=== PATIENT | male | born 1940 | race Caucasian/White ===

== ENCOUNTER 2024-06-02 12:19 | Emergency (ER) | payer MEDICARE, BC, SELFPAY ==
[2024-06-02 12:22] VITALS: BP 170/75; PULSE 58; TEMP 36.7; O2SAT 98; BMI 30.1
[2024-06-02] MEDS: ADACEL DIPH,PERTUSS(ACELL),TET VAC/PF 0.5 ML ADULT SYRINGE IM (13:49)
[2024-06-02] MEDS: LIDOCAINE/EPINEPHRINE/TETRACAINE 3 ML GEL.PF.APP 1.5 ML TOPICAL (13:50)
[2024-06-02 13:51] VITALS: BP 194/85
--- NOTE | 2024-06-02 14:04 | ED_ITS ---
HPI HPI - Fall General Chief Complaint: Fall Stated Complaint: FALL; HEAD INJURY Time Seen by Provider: 06/02/24 12:44 Source: patient Mode of arrival: ambulance History of Present Illness HPI Narrative: The patient coming [facility] a [facility] after he had a fall, apparently he was trying to get transferred from the wheelchair when he fell forward hitting the left side of his scalp, he did not lose consciousness, he has history of dementia, the patient also complaining initially to the triage with the right hip pain and left shoulder pain although right now he does not have any complaint of that The patient denies any other complaint Related Data Home Medications ?Medication ?Instructions ?Recorded ?Confirmed acetaminophen 325 mg tablet 650 mg PO Q6H PRN fever or pain 06/02/24 06/02/24 amlodipine 2.5 mg tablet (Norvasc) 2.5 mg PO DAILY 06/02/24 06/02/24 aspirin 81 mg tablet,delayed 81 mg PO DAILY 06/02/24 06/02/24 release (Adult Low Dose Aspirin) atorvastatin 40 mg tablet 40 mg PO QPM 06/02/24 06/02/24 ergocalciferol (vitamin D2) 1,250 1,250 mcg PO QWEEK 06/02/24 06/02/24 mcg (50,000 unit) capsule finasteride 5 mg tablet 5 mg PO QPM 06/02/24 06/02/24 fluoxetine 20 mg capsule 20 mg PO DAILY 06/02/24 06/02/24 melatonin 5 mg tablet 5 mg PO QPM 06/02/24 06/02/24 memantine 10 mg tablet 10 mg PO DAILY 06/02/24 06/02/24 metformin 500 mg tablet 500 mg PO BID 06/02/24 06/02/24 quetiapine 25 mg tablet (Seroquel) 25 mg PO QPM 06/02/24 06/02/24 Allergies Allergy/AdvReac Type Severity Reaction Status Date / Time No Known Drug Allergies Allergy Verified 06/02/24 12:25 Opioid HPI Opioid Management Most Recent Pain and Opioid Data: No Data to Display Review of Systems ROS Status of ROS 10 or more systems reviewed and unremark able except as noted in history and below [facility] Medical History (Updated 06/02/24 @ 15:20 by Lydia Kimble MD) Zoster without complications ?B02.9 - Zoster without complications (ICD-10) Cognitive communication deficit ?R41.841 - Cognitive communication deficit (ICD-10) Dysphagia ?R13.10 - Dysphagia, unspecified (ICD-10) Tremor ?R25.1 - Tremor, unspecified (ICD-10) Major depressive disorder ?F32.9 - Major depressive disorder, single episode, unspecified (ICD-10) Atherosclerotic heart disease ?I25.10 - Atherosclerotic heart disease of [place] coronary artery without angina pectoris (ICD-10) Male erectile disorder ?N52.9 - Male erectile dysfunction, unspecified (ICD-10) Adjustment insomnia ?F51.02 - Adjustment insomnia (ICD-10) Sleep apnea ?G47.30 - Sleep apnea, unspecified (ICD-10) Dementia ?F03.90 - Unspecified dementia, unspecified severity, without behavioral disturbance, psychotic disturbance, mood disturbance, and anxiety (ICD-10) Type 2 diabetes mellitus ?E11.9 - Type 2 diabetes mellitus without complications (ICD-10) Essential (primary) hypertension ?I10 - Essential (primary) hypertension (ICD-10) BPH (benign prostatic hyperplasia) ?N40.0 - Benign prostatic hyperplasia without lower urinary tract symptoms (ICD-10) Hyperlipidemia ?E78.5 - Hyperlipidemia, unspecified (ICD-10) Difficulty in walking ?R26.2 - Difficulty in walking, not elsewhere classified (ICD-10) Muscle weakness ?M62.81 - Muscle weakness (generalized) (ICD-10) Nutritional deficiency ?E63.9 - Nutritional deficiency, unspecified (ICD-10) Orthostatic hypotension ?I95.1 - Orthostatic hypotension (ICD-10) Exam Narrative Exam Narrative: Nurses notes and vital signs reviewed and patient is not hypoxic. General: Well-appearing and in no apparent distress. Skin: Warm, dry, no pallor noted. No rash. Head: 2.5 cm laceration to the scalp mostly at the temporal area measuring 2.5 cm linear and is clean with no foreign body Neck: Supple, non-tender. Cardiovascular: Regular Rate and Rhythm without murmur, gallop or rub. Respiratory: No accessory muscle use or respiratory distress. Lungs are clear to auscultation, no wheezing, rales or rhonchi Chest Wall: no tenderness Back: No midline thoracic or lumbar vertebral tenderness. No CVA tenderness Musculoskeletal: normal ROM, no calf or popliteal tenderness, no lower extremity edema/swelling GI: Abdomen is soft, non-distended. Normal bowel sounds. No masses appreciated. No tenderness to palpation. No rebound, guarding, or rigidity noted. Neurological: Alert, no cranial nerve dysfunction observed. Moves all extremities. Sensation intact. Psychiatric: Cooperative and interactive. Normal mood and affect. Constitutional Vital Signs, click to edit/add: Last Vital Signs Temp 98.0 F 06/02/24 12:22 Pulse 65 06/02/24 15:04 Resp 20 06/02/24 15:04 BP 188/92 H 06/02/24 15:04 Pulse Ox 97 06/02/24 15:04 O2 Del Method Room Air 06/02/24 12:22 Course Vital Signs Vital signs: Vital Signs Temperature 98.0 F 06/02/24 12:22 Pulse Rate 58 L 06/02/24 12:22 Respiratory Rate 18 06/02/24 12:22 Blood Pressure 170/75 H 06/02/24 12:22 Pulse Oximetry 98 06/02/24 12:22 Oxygen Delivery Method Room Air 06/02/24 12:22 Temperature 98.0 F 06/02/24 12:22 Pulse Rate 65 06/02/24 15:04 Respiratory Rate 20 06/02/24 15:04 Blood Pressure 188/92 H 06/02/24 15:04 Pulse Oximetry 97 06/02/24 15:04 Oxygen Delivery Method Room Air 06/02/24 12:22 MDM - Fall MDM Narrative Medical decision making narrative: Patient provided with a tetanus booster Also the patient had a CT head and cervical spine in addition to an x-ray of the left shoulder and and CT of the pelvis The patient imaging CT cervical as well as CT head and CT of the pelvis and x- ray of the left shoulder showed no acute pathology The patient had a the wound cleaned after which LET applied and the patient had 4 taya applied as well Patient was discharged back to the [facility] with monitoring and fall prevention instruction The patient is to follow up with primary care physician in next 2-3 days or to return to the emergency department should any of the signs or symptoms worsen or new symptoms develop. The patient agrees with the following Diagnosis and Treatment plan and the patient will be discharged home. Discharge Plan Discharge Chief Complaint: Fall Clinical Impression: Fall, Laceration of scalp, Head trauma Patient Disposition: Home, Self-Care Time of Disposition Decision: 15:18 Condition: Good Prescriptions / Home Meds: No Action acetaminophen 325 mg tablet 650 mg PO Q6H PRN (Reason: fever or pain) aspirin [Adult Low Dose Aspirin] 81 mg tablet,delayed release (DR/EC) 81 mg PO DAILY atorvastatin 40 mg tablet 40 mg PO QPM ergocalciferol (vitamin D2) 1,250 mcg (50,000 unit) capsule 1,250 mcg PO QWEEK finasteride 5 mg tablet 5 mg PO QPM fluoxetine 20 mg capsule 20 mg PO DAILY melatonin 5 mg tablet 5 mg PO QPM memantine 10 mg tablet 10 mg PO DAILY metformin 500 mg tablet 500 mg PO BID amlodipine [Norvasc] 2.5 mg tablet 2.5 mg PO DAILY quetiapine [Seroquel] 25 mg tablet 25 mg PO QPM Print Language: Welsh Instructions: Laceration (DC), Fall Prevention (ED) Referrals: ADEOLA CERON [Primary Care Provider] - 1 week
[2024-06-02 15:04] VITALS: BP 188/92; PULSE 65; O2SAT 97
== END 2024-06-02 15:44 | disposition home or self-care (01) ==
PROVIDERS: Emergency Provider Emergency Medicine; PCP Family Medicine
DX: S01.01XA Laceration without foreign body of scalp, initial encounter (principal); S09.90XA Unspecified injury of head, initial encounter; M25.551 Pain in right hip; M25.512 Pain in left shoulder; W05.0XXA Fall from non-moving wheelchair, initial encounter; F03.90 Unspecified dementia, unspecified severity, without behavioral disturbance, psychotic disturbance, mood disturbance, and anxiety; Z23 Encounter for immunization
CPT/HCPCS: 12001; 70450; 72125; 72192; 73030; 90471; 90715; 99284

== ENCOUNTER 2024-06-04 11:52 | Outpatient (REF) | payer MEDICARE, BC, SELFPAY ==
[2024-06-04 12:10] LABS: Basophils Percent Auto 0.3 % (0.2-2.0); Eosinophils Absolute Auto 0.1 10^3/uL (0.0-0.7); Eosinophils Percent Auto 1.1 % (0.9-7.0); Hematocrit 43.4 % (42.0-54.0); Hemoglobin 14.3 g/dL (14.0-18.0); Immature Granulocytes Abs Auto 0.02 10^3/uL (0.00-0.03); Immature Granulocytes Pct Auto 0.2 % (0.0-0.5); Lymphocytes Absolute Auto 2.3 10^3/uL (1.2-3.8); Lymphocytes Percent Auto 25.5 % (20.5-60.0); Mean Corpuscular HGB Conc 32.9 g/dL (29.9-35.2); Mean Corpuscular Hemoglobin 30.8 pg (25.9-34.0); Mean Corpuscular Volume 93.5 fL (80.0-94.0); Mean Platelet Volume 10.9 fL (9.5-13.5); Monocytes Absolute Auto 0.9 10^3/uL (0.3-0.8); Monocytes Percent Auto 10.1 % (1.7-12.0); Neutrophils Absolute Auto 5.6 10^3/uL (1.4-6.5); Neutrophils Percent Auto 62.8 % (43.0-75.0); Platelet Count 284 10^3/uL (150-450); Red Blood Count 4.64 10^6/uL (4.70-6.10); Red Cell Distribution Width 13.6 % (11.0-15.0); White Blood Count 8.9 10^3/uL (4.0-11.0)
[2024-06-04 12:11] LABS: Bilirubin Urine NEGATIVE (NEGATIVE); Blood Urine NEGATIVE (NEGATIVE); Clarity Urine CLEAR (CLEAR); Color Urine LT. YELLOW (YELLOW); Glucose Urine UA NEGATIVE (NEGATIVE); Ketones Urine NEGATIVE (NEGATIVE); Leukocyte Esterase Urine NEGATIVE (NEGATIVE); Nitrite Urine NEGATIVE (NEGATIVE); Protein Urine 100 mg/dL (NEG/TRACE)
[2024-06-04 12:12] LABS: Urine Microscopic Indicated YES
[2024-06-04 12:21] LABS: Bacteria Urine NONE SEEN #/HPF (NONE SEEN); Cast Seen? SEEN #/LPF (NONE SEEN); Crystals Seen? None Seen #/HPF (None Seen); Hyaline Casts Urine FEW; Mucus Urine TRACE (NONE SEEN); RBC Urine 0-2 #/HPF (0-2); Squamous Epithelial Cell Urine RARE #/LPF (NONE/RARE); WBC Urine 0-2 #/HPF (NONE SEEN)
[2024-06-04 12:49] LABS: Anion Gap 15.2; BUN Creatinine Ratio 21.5; Calcium 9.3 mg/dL (8.5-10.1); Chloride 105 mmol/L (98-107); Estimated GFR (African America >60 (>=60 mL/min/1.73m^2); Estimated GFR (Non-African Ame >60 (>=60 mL/min/1.73m^2); Glucose 110 mg/dL (74-106); Potassium 4.2 mmol/L (3.5-5.1); Sodium 143 mmol/L (136-145)
== END 2024-06-04 11:53 | disposition home or self-care (01) ==
LOC: LAB 11:52
PROVIDERS: PCP Family Medicine; Visit Provider Family Medicine
DX: R41.82 Altered mental status, unspecified (principal)
CPT/HCPCS: 36415; 80048; 81001; 85025

== ENCOUNTER 2024-06-20 16:38 | Observation (INO) | payer MEDICARE, BC, SELFPAY ==
[2024-06-20] VITALS (14 sets, daily range): BP systolic 134–201; BP diastolic 72–101; PULSE 68–78; TEMP 36.6–36.8; O2SAT 93–98; BMI 28.7; BMI 30.6
--- NOTE | 2024-06-20 16:54 | ECG_ITS ---
[facility] Test Date: 2024-06-20 Pat Name: DES SIMONS Department: Room: - Gender: Male Habilitation Training Specialist: : [id number] Requested By: 0929 Order Number: [id number] Reading MD: NINA VILLALTA M.D. Measurements Intervals [place] Rate: 71 P: 90 PA: 152 QRS: 73 QRSD: 82 T: 90 QT: 386 QTc: 409 Interpretive Statements 1100 Sinus rhythm ARTIFACT IN LEAD(S) 9110 normal ECG No previous ECG available for comparison Electronically Signed On 06-21-2024 8:07:29 EDT by NINA VILLALTA M.D.
--- NOTE | 2024-06-20 16:57 | ED_ITS ---
HPI - Altered Mental Status General Chief Complaint: Altered Mental Status Stated Complaint: fall Time Seen by Provider: 06/20/24 16:43 Source: patient Mode of arrival: walk-in Limitations: no limitations History of Present Illness HPI narrative: Patient is an 83-year-old male brought to the emergency department by EMS for evaluation of an unwitnessed fall at the [facility] just prior to arrival. 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 Nursing reports that the patient screamed in pain and complained of low back pain. He apparently had been hallucinating just prior to this. EMS reports the patient is ANO x 0. He is a full code with a history of dementia and cognitive communication deficit. He is noted to have moderate swelling and bruising to the right elbow and forearm. residential records show that the patient had x-rays of the elbow and forearm, no results are attached. He follows commands on arrival. Related Data Home Medications ?Medication ?Instructions ?Recorded ?Confirmed acetaminophen 325 mg tablet 650 mg PO Q6H PRN fever or pain 06/02/24 06/02/24 amlodipine 2.5 mg tablet (Norvasc) 2.5 mg PO DAILY 06/02/24 06/02/24 aspirin 81 mg tablet,delayed 81 mg PO DAILY 06/02/24 06/02/24 release (Adult Low Dose Aspirin) atorvastatin 40 mg tablet 40 mg PO QPM 06/02/24 06/02/24 ergocalciferol (vitamin D2) 1,250 1,250 mcg PO QWEEK 06/02/24 06/02/24 mcg (50,000 unit) capsule finasteride 5 mg tablet 5 mg PO QPM 06/02/24 06/02/24 fluoxetine 20 mg capsule 20 mg PO DAILY 06/02/24 06/02/24 melatonin 5 mg tablet 5 mg PO QPM 06/02/24 06/02/24 memantine 10 mg tablet 10 mg PO DAILY 06/02/24 06/02/24 metformin 500 mg tablet 500 mg PO BID 06/02/24 06/02/24 quetiapine 25 mg tablet (Seroquel) 25 mg PO QPM 06/02/24 06/02/24 Allergies Allergy/AdvReac Type Severity Reaction Status Date / Time No Known Drug Allergies Allergy Verified 06/02/24 12:25 Review of Systems ROS Constitutional Denies: fever or chills Ears, nose, mouth, and throat Denies: throat pain or nasal congestion Cardiovascular Denies: chest pain Respiratory Denies: shortness of breath or cough Gastrointestinal Denies: nausea or vomiting Musculoskeletal Reports: back pain; Denies: neck pain Integumentary/Breast Denies: rash Hematologic/Lymphatic Denies: easy bruising or easy bleeding [facility] Medical History (Updated 06/20/24 @ 19:35 by MIMA Clark) Zoster without complications ?B02.9 - [place] without complications (ICD-10) Cognitive communication deficit ?R41.841 - Cognitive communication deficit (ICD-10) Dysphagia ?R13.10 - Dysphagia, unspecified (ICD-10) Tremor ?R25.1 - Tremor, unspecified (ICD-10) Major depressive disorder ?F32.9 - Major depressive disorder, single episode, unspecified (ICD-10) Atherosclerotic heart disease ?I25.10 - Atherosclerotic heart disease of [place] coronary artery without angina pectoris (ICD-10) Male erectile disorder ?N52.9 - Male erectile dysfunction, unspecified (ICD-10) Adjustment insomnia ?F51.02 - Adjustment insomnia (ICD-10) Sleep apnea ?G47.30 - Sleep apnea, unspecified (ICD-10) Dementia ?F03.90 - Unspecified dementia, unspecified severity, without behavioral disturbance, psychotic disturbance, mood disturbance, and anxiety (ICD-10) Type 2 diabetes mellitus ?E11.9 - Type 2 diabetes mellitus without complications (ICD-10) Essential (primary) hypertension ?I10 - Essential (primary) hypertension (ICD-10) BPH (benign prostatic hyperplasia) ?N40.0 - Benign prostatic hyperplasia without lower urinary tract symptoms (ICD-10) Hyperlipidemia ?E78.5 - Hyperlipidemia, unspecified (ICD-10) Difficulty in walking ?R26.2 - Difficulty in walking, not elsewhere classified (ICD-10) Muscle weakness ?M62.81 - Muscle weakness (generalized) (ICD-10) Nutritional deficiency ?E63.9 - Nutritional deficiency, unspecified (ICD-10) Orthostatic hypotension ?I95.1 - Orthostatic hypotension (ICD-10) Exam Narrative Exam Narrative: Gen.: Awake, alert, in no distress Head: Normocephalic, atraumatic ENT: Moist mucous membranes Respiratory: No respiratory distress, lungs clear bilaterally, no chest wall tenderness or crepitance Cardio: Regular rate and rhythm Gastrointestinal: Abdomen is soft, nondistended and nontender to palpation, pelvis is stable and hips are nontender Extremities: Moves extremities equally, swelling and bruising noted to the right medial elbow although patient allows full passive range of motion to flexion and extension. 2+ right radial pulse. No bony tenderness of the lower extremities. Psych: Normal mood and affect Neuro: No focal neuro deficit Skin: Warm, dry, intact Constitutional Vital Signs, click to edit/add: Last Vital Signs Temp 98 F 06/20/24 16:45 Pulse 74 06/20/24 18:23 Resp 17 06/20/24 18:23 BP 180/86 H 06/20/24 16:50 Pulse Ox 95 06/20/24 17:00 O2 Del Method Room Air 06/20/24 16:45 Course Vital Signs Vital signs: Vital Signs Blood Pressure 134/101 H 06/20/24 10:59 Temperature 98 F 06/20/24 16:45 Pulse Rate 74 06/20/24 18:23 Respiratory Rate 17 06/20/24 18:23 Blood Pressure 180/86 H 06/20/24 16:50 Pulse Oximetry 95 06/20/24 17:00 Oxygen Delivery Method Room Air 06/20/24 16:45 MDM - Altered Mental Status MDM Narrative Medical decision making narrative: Patient was sent for CTs of the head, cervical spine, lumbar spine as well as the chest/abdomen/pelvis. He was kept in a c-collar and lying flat until his CT of his cervical spine resulted. These imaging studies show the patient has a superior endplate fracture of L3 with otherwise normal alignment. He was able to stand at the bedside without complaints of pain, however he has a very unsteady gait and we feel he is a significant fall risk. Given his dementia and hallucinations with a fall and lumbar fracture, he is admitted for observation for PT/OT evaluation and observation overnight. He is stable with no complaints of pain at this time. I did discuss the case with the hospitalist and Dr. Bethea for orthopedics, no intervention indicated for the L3 fracture. Stable at time of admission to the hospital. After the patient was admitted to the hospital, staff responded to a CODE BLUE for a different patient and on rechecking the patient in his room, he had removed his gown, climbed out of bed and was laying naked on the floor. He denied any focal complaints, he was not on the floor for an extended period of time. He had no physical signs of significant trauma. He was assisted to a standing position and placed back in bed and back on cardiac monitoring. He was sent for a CT of the head and C-spine that was repeated prior to admission. This was reviewed by the radiologist showing no evidence of acute process. SUPERVISED APC VISIT, PHYSICIAN ATTESTATION: Based on the medical record the care appears appropriate. ? Medical Records Attestation: I reviewed the patient's medical records. Lab Data Attestation: I reviewed the patient's lab results. Labs: Lab Results 06/20/24 06/20/24 06/20/24 Range/Units 16:55 18:55 19:30 WBC 9.2 (4.0-11.0) 10^3/uL RBC 4.03 L (4.70-6.10) 10^6/uL Hgb 12.6 L (14.0-18.0) g/dL Hct 37.1 L (42.0-54.0) % MCV 92.1 (80.0-94.0) fL MCH 31.3 (25.9-34.0) pg MCHC 34.0 (29.9-35.2) g/dL RDW 13.6 (11.0-15.0) % Plt Count 275 (150-450) 10^3/uL MPV 10.9 (9.5-13.5) fL Neut % (Auto) 69.1 (43.0-75.0) % Lymph % (Auto) 16.9 L (20.5-60.0) % [place] % (Auto) 11.1 (1.7-12.0) % Eos % (Auto) 2.2 (0.9-7.0) % Baso % (Auto) 0.4 (0.2-2.0) % Neut # (Auto) 6.3 (1.4-6.5) 10^3/uL Lymph # (Auto) 1.6 (1.2-3.8) 10^3/uL [place] # (Auto) 1.0 H (0.3-0.8) 10^3/uL Eos # (Auto) 0.2 (0.0-0.7) 10^3/uL Baso # (Auto) 0.0 (0.0-0.1) 10^3/uL Abs Immat Gran (auto) 0.03 (0.00-0.03) 10^3/uL Imm/Tot Granulo (auto) 0.3 (0.0-0.5) % PT 10.8 (9.0-11.6) sec INR 1.02 Sodium 141 (136-145) mmol/L Potassium 4.4 (3.5-5.1) mmol/L Chloride 107 (98-107) mmol/L Carbon Dioxide 24.8 (21.0-32.0) mmol/L Anion Gap 13.6 BUN 32.0 H (7.0-18.0) mg/dL Creatinine 1.15 (0.70-1.30) mg/dL Est GFR ( Amer) >60 (>=60 mL/min/1.73m^2) Est GFR (Non-Af Amer) >60 (>=60 mL/min/1.73m^2) BUN/Creatinine Ratio 27.8 Glucose 177 H (74-106) mg/dL Lactate 2.6 H* 2.7 H* (0.4-2.0) mmol/L Calcium 8.8 (8.5-10.1) mg/dL Magnesium 1.8 (1.8-2.4) mg/dL Total Bilirubin 0.9 (0.2-1.0) mg/dL AST 19 (15-37) U/L ALT 28 (16-63) U/L Alkaline Phosphatase 140 H (46-116) U/L Troponin I High Sens 11.5 (4.0-76.1) pg/mL Total Protein 7.0 (6.4-8.2) g/dL Albumin 3.0 L (3.4-5.0) g/dL Globulin 4.0 g/dL Albumin/Globulin Ratio 0.8 TSH 1.845 (0.358-3.740) uIU/mL Urine Color Yellow (YELLOW) Urine Clarity Clear (CLEAR) Urine pH 6.0 (5.0-9.0) Ur Specific [place] 1.025 (1.005-1.025) Urine Protein 100 A (NEG/TRACE) mg/dL Urine Glucose (UA) Negative (NEGATIVE) mg/dL Urine Ketones Negative (NEGATIVE) mg/dL Urine Occult Blood Negative (NEGATIVE) Urine Nitrite Negative (NEGATIVE) Urine Bilirubin Negative (NEGATIVE) Urine Urobilinogen 1.0 (0.2-1.0) EU/dL Ur Leukocyte Esterase Negative (NEGATIVE) Urine RBC 0-2 (0-2) #/HPF Urine WBC 0-2 A (NONE SEEN) #/HPF Ur Squamous Epith Cells Rare (NONE/RARE) #/LPF Urine Crystals None seen (None Seen) #/HPF Urine Bacteria Trace A (NONE SEEN) #/HPF Urine Casts None seen (NONE SEEN) #/LPF Urine Mucus Moderate A (NONE SEEN) Ur Culture Indicated? No Imaging Data CT scan - head: Attestation: I have reviewed the pertinent imaging results. ECG Data Attestation: I personally reviewed and interpreted this ECG as follows: (Normal sinus rhythm at a rate of 71, no acute ST elevation or ectopy. Twelve-lead EKG reviewed by attending physician) Discharge Plan Discharge Chief Complaint: Altered Mental Status Clinical Impression: Altered mental status, Fall, Closed lumbar vertebral fracture Patient Disposition: Admitted as Observation Time of Disposition Decision: 19:34 Condition: Good
[2024-06-20 17:25] LABS: Basophils Percent Auto 0.4 % (0.2-2.0); Eosinophils Absolute Auto 0.2 10^3/uL (0.0-0.7); Eosinophils Percent Auto 2.2 % (0.9-7.0); Hematocrit 37.1 % (42.0-54.0); Hemoglobin 12.6 g/dL (14.0-18.0); Immature Granulocytes Abs Auto 0.03 10^3/uL (0.00-0.03); Immature Granulocytes Pct Auto 0.3 % (0.0-0.5); Lymphocytes Absolute Auto 1.6 10^3/uL (1.2-3.8); Lymphocytes Percent Auto 16.9 % (20.5-60.0); Mean Corpuscular Hemoglobin 31.3 pg (25.9-34.0); Mean Corpuscular Volume 92.1 fL (80.0-94.0); Mean Platelet Volume 10.9 fL (9.5-13.5); Monocytes Percent Auto 11.1 % (1.7-12.0); Neutrophils Absolute Auto 6.3 10^3/uL (1.4-6.5); Neutrophils Percent Auto 69.1 % (43.0-75.0); Platelet Count 275 10^3/uL (150-450); Red Blood Count 4.03 10^6/uL (4.70-6.10); Red Cell Distribution Width 13.6 % (11.0-15.0); White Blood Count 9.2 10^3/uL (4.0-11.0)
[2024-06-20 17:41] LABS: INR 1.02; Prothrombin Time 10.8 sec (9.0-11.6)
[2024-06-20 17:50] LABS: Alanine Aminotransferase 28 U/L (16-63); Albumin Globulin Ratio 0.8; Alkaline Phosphatase 140 U/L (46-116); Anion Gap 13.6; Aspartate Amino Transferase 19 U/L (15-37); BUN Creatinine Ratio 27.8; Bilirubin Total 0.9 mg/dL (0.2-1.0); Calcium 8.8 mg/dL (8.5-10.1); Carbon Dioxide 24.8 mmol/L (21.0-32.0); Chloride 107 mmol/L (98-107); Estimated GFR (African America >60 (>=60 mL/min/1.73m^2); Estimated GFR (Non-African Ame >60 (>=60 mL/min/1.73m^2); Glucose 177 mg/dL (74-106); Magnesium 1.8 mg/dL (1.8-2.4); Potassium 4.4 mmol/L (3.5-5.1); Sodium 141 mmol/L (136-145); Thyroid Stimulating Hormone 1.845 uIU/mL (0.358-3.740); Troponin I High Sensitivity 11.5 pg/mL (4.0-76.1)
[2024-06-20 17:52] LABS: Lactate/Lactic Acid 2.6 mmol/L (0.4-2.0)
[2024-06-20] MEDS: 0.9 % SODIUM CHLORIDE 1,000 ML 100 ML IV ×2 (18:24→22:16)
[2024-06-20 19:18] LABS: Bilirubin Urine NEGATIVE (NEGATIVE); Blood Urine NEGATIVE (NEGATIVE); Clarity Urine CLEAR (CLEAR); Color Urine YELLOW (YELLOW); Glucose Urine UA NEGATIVE (NEGATIVE); Ketones Urine NEGATIVE (NEGATIVE); Leukocyte Esterase Urine NEGATIVE (NEGATIVE); Nitrite Urine NEGATIVE (NEGATIVE); Protein Urine 100 mg/dL (NEG/TRACE); Specific Gravity Urine 1.025 (1.005-1.025)
[2024-06-20 19:27] LABS: Bacteria Urine TRACE #/HPF (NONE SEEN); Cast Seen? NONE SEEN #/LPF (NONE SEEN); Crystals Seen? None Seen #/HPF (None Seen); Mucus Urine MODERATE (NONE SEEN); RBC Urine 0-2 #/HPF (0-2); Squamous Epithelial Cell Urine RARE #/LPF (NONE/RARE); Urine Culture Indicated NO; WBC Urine 0-2 #/HPF (NONE SEEN)
[2024-06-20 20:36] LABS: Lactate/Lactic Acid 2.7 mmol/L (0.4-2.0)
--- OUTSIDE RECORDS SUMMARY | 2024-06-20 21:26 | XMS_ITS | CCD ---
Author Organization [facility] CliniSywv Care Team Providers Care Nuclear Equipment Test Engineer Name Role Phone KRISTOFER ORTEGA Unavailable Unavailable GABRIELA JOHNSON Unavailable Unavailable Phani Ambrocio Unavailable Unavailable Unavailable Teresa Martinez Unavailable DO Phani Ambrocio Primary Care Provider DO Phani Ambrocio Attending Provider Dr. Phani Ambrocio Primary Care Kristofer Petersen Attending Unavailable Lali Garcia Unavailable Kristofer Ortega Attending Unavailable Kristofer Ortega Referring Unavailable Dr. Phani Ambrocio Primary Care Kristofer Petersen Attending Unavailable Kristofer Ortega Referring Unavailable Dr. Phani Ambrocio Primary Care DO Phani Julian Primary Care Provider SEDA Lynch Attending Provider [phone] Phani Ambrocio DO Primary Care Provider DO Phani Ambrocio Primary Care Provider DO Phani Ambrocio Attending Provider KRISTOFER ORTEGA Attending Unavailable PHANI AMBROCIO Primary Care Unavailable KRISTOFER ORTEGA Attending Unavailable PHANI AMBROCIO Primary Care Unavailable KRISTOFER ORTEGA Referring Unavailable Phani Ambrocio DO Unavailable Phani Ambrocio DO Primary Care Provider CHECO BAEZA Attending Unavailable PHANI AMBROCIO Attending Unavailable PHANI AMBROCIO Attending Unavailable PHANI AMBROCIO Referring Unavailable Phani Ambrocio DO Primary Care Provider Phani Ambrocio DO Attending Provider Pradip SMITH, Floyd Emergency Provider [phone] Alexander DO Elenita Emergency Provider Dread Toney DO Admit Provider [phone] Dread Toney DO Attending Provider Prashant Garcia DO Other Provider Phani Ambrocio DO Primary Care Provider Lalo SMITH, Tawnya Other Provider Johny SMITH, Shamar Other Provider Gissell Giraldo APRN Other Provider German Ngo DO Other Provider Aubrey Eugene MD Other Provider [phone] [facility] Sri STACK Unavailable Unavailable Phani Ambrocio Primary Care Unavailable Prashant Garcia Consulting Unavailable Dread Toney Attending Unavailable Dread Toney Admitting Unavailable Tawnya May Consulting Unavailable Shamar Mcclain Consulting Unavailable Gissell Giraldo Consulting Unavailable German Ngo Jr Consulting UnavailAubrey Aguilar Consulting Unavaila ble Phani Ambrocio Admitting Unavailable Phani Ambrocio Attending Unavailable Phani Ambrocio Primary Care Unavailable Phani Ambrocio Admitting Unavailable Phani Ambrocio Attending Unavailable Phani Ambrocio Primary Care Unavailable Phani Ambrocio Admitting Unavailable Phani Ambrocio Attending Unavailable Ricci, Phani Primary Care Unavailable Phani Ambrocio Primary Care Unavailable Floyd Moseley Attending Unavailable Floyd Moseley Admitting Unavailable Allergies Allergy Classification Reported Allergen(s) Allergy Type Date of Onset Reaction(s) Facility (13 sources) dulaglutide Drug Allergy 08-25-2022 [facility] Medications Current Medications Medication Drug Class(es) Dates Sig (Normalized) Sig (Original) aspirin 81 mg delayed release oral tablet (20 sources) Platelet Aggregation Inhibitor, Nonsteroidal Anti-inflammatory Drug Start: 07-10-2018 take 1 tablet by mouth once daily Aspirin 81 mg Tablet,Delayed Release (Dr/Ec) Active 81 MG PO Daily July 10, 2018 12:00am take 1 tablet by mouth twice pavel ly Baby Aspirin 81 MG 1 tablet Orally twice a day Active atorvastatin 40 mg oral tablet (20 sources) HMG-CoA Reductase Inhibitor Start: 07-10-2018 take 1 tablet by mouth at bedtime atorvastatin (Lipitor) 40 MG tablet Indications: Mixed hyperlipidemia (CMS/HCC) Take 1 tablet (40 mg) by mouth at bedtime 90 tablet 3 12/20/2023 Active calcium carbonate 1500 mg / cholecalciferol 200 unt oral tablet (2 sources) Vitamin D take 1 tablet by mouth once daily at mealtime Calcium + D 600-200 MG-UNIT 1 tablet with food Orally Once a day for 30 day(s) Active take 1 tablet by erica th every twenty-four hours Calcium + D 600-200 MG-UNIT 1 tablet with food Orally Once a day for 30 day(s) Active donepezil hydrochloride 10 mg oral tablet (18 sources) Start: 01-03-2024 End: 05-28-2024 take 1 tablet by mouth at bedtime donepezil (Aricept) 10 MG tablet Indications: MCI (mild cognitive impairment) Take 1 tablet (10 mg) by mouth at bedtime 90 tablet 3 01/03/2024 Active Start: 06-13-2023 take 1 tablet by erica th at bedtime donepezil (Aricept) 10 MG tablet Indications: MCI (mild cognitive impairment) Take 1 tablet by mouth at bedtime. 90 tablet 1 06/13/2023 Active Start: 06-08-2022 take 2 tablets by mo uth once daily at bedtime donepezil (Aricept) 5 mg tablet Take 2 tablets (10 mg) by mouth once daily at bedtime. 06/08/2022 Active take 1 tablet by erica th at bedtime Donepezil HCl - 10 MG Oral Tablet take 1 tablet by mouth at bedtime Quantity: 90 Refills: 1 Ordered: 01-Dec-2022 DO Active ergocalciferol 1.25 mg oral capsule (1 source) Provitamin D2 Compound Start: 05-28-2024 Ergocalciferol (Vitamin D2) 1,250 mcg (50,000 unit) Capsule Active 1250 MCG PO Th@0900 5 May 28, 2024 12:00am finasteride 5 mg oral tablet (20 sources) 5-alpha Reductase Inhibitor Start: 07-10-2018 take 1 tablet by mouth once daily finasteride (Proscar) 5 MG tablet Indications: Essential hypertension (CMS/HCC) TAKE 1 TABLET BY MOUTH EVERY DAY 90 tablet 3 08/01/2023 Active Flax Seed Oil 1000 MG (2 sources) Flax Seed Oil 10 00 MG as directed Orally Active fluorouracil 50 mg/ml topical cream (11 sources) Nucleoside Metabolic Inhibitor Start: 05-17-2023 End: 05-17-2024 fluorouracil (Efudex) 5 % cream Indications: Actinic keratosis Apply to directed areas on the temples and cheeks twice a day x 14 days. Dispense 30 day supply but only use for 14 days. 40 g 05/17/2023 05/17/2024 Discontinued FLUoxetine 40 mg oral capsule (20 sources) Serotonin Reuptake Inhibitor Start: 08-01-2023 take 1 capsule by mouth once daily FLUoxetine (PROzac) 40 MG capsule Indications: Recurrent major depressive disorder, in partial remission (HCC) (CMS/HCC) Take 1 capsule (40 mg) by mouth Daily 90 capsule 3 08/01/2023 Active Start: 07-10-2018 take 2 capsules by m outh once daily Fluoxetine 20 mg capsule Active 40 MG PO Daily July 10, 2018 12:00am Start: 07-10-2018 take 1 tablet by mouth once da roxi Fluoxetine 20 mg capsule Active 1 TAB PO Daily July 10, 2018 12:00am isopropyl alcohol 0.7 ml/ml medicated pad (13 sources) Start: 12-10-2022 Alcohol Sheets (Alcoh-Wipe) sheet Indications: Type 2 diabetes mellitus with other specified complication, unspecified whether director long term care insulin use (CMS/HCC) Test daily before all meals/snacks and once before bedtime. 1 each 12/10/2022 Active memantine hydrochloride 10 mg oral tablet (18 sources) Z-guyccs-H-aspart ate Receptor Antagonist Start: 05-07-2024 take 1 tablet by mouth once daily Memantine 10 mg Tablet Active 10 MG PO Daily May 28, 2024 12:00am Start: 08-31-2023 End: 02-27-2024 take 1 tablet by mouth in the morning memantine (Namenda) 10 MG tablet Indications: MCI (mild cognitive impairment) Take 1 tablet (10 mg) by mouth in the morning and 1 tablet (10 mg) before bedtime. 180 tablet 1 08/31/2023 Active metFORMIN hydrochloride 500 mg oral tablet (20 sources) Biguanide Start: 05-04-2024 take 1 tablet by mouth at mealtime metFORMIN (Glucophage) 500 MG tablet Indications: Type 2 diabetes mellitus with other specified complication, without long-term current use of insulin (CMS/HCC) Take 1 tablet (500 mg) by mouth in the morning. Take with meals. 90 tablet 2 05/04/2024 Active Start: 02-28-2023 take 1 tablet by erica th at mealtime metFORMIN (Glucophage) 500 MG tablet Indications: Type 2 diabetes mellitus with other specified complication, without long-term current use of insulin (CMS/HCC) Take 1 tablet (500 mg) by mouth in the morning. Take with meals. 02/28/2023 Active Start: 07-10-2018 take 1 tablet by erica th twice daily Metformin 500 mg tablet Active 1 TAB PO Twice daily July 10, 2018 12:00am take 1 tablet by erica th every twelve hours at mealtime metFORMIN HCl - 500 MG Oral Tablet TAKE 1 TABLET EVERY 12 HOURS WITH FOOD. Quantity: 0 Refills: 0 Ordered: 13-May-2021 DO Active take 1 tablet by erica th twice daily at mealtime metFORMIN HCl 500 1 tablet with meals Orally Twice a day for 30 Active midodrine hydrochloride 2.5 mg oral tablet (5 sources) alpha-Adrenergic Agonist Start: 05-04-2024 take 1 tablet by mouth in the morning midodrine (Proamatine) 2.5 MG tablet Indications: Hypotension, unspecified hypotension type Take 1 tablet (2.5 mg) by mouth in the morning and 1 tablet (2.5 mg) before bedtime. 180 tablet 2 05/04/2024 Active Start: 03-01-2024 End: 03-31-2024 take 1 tablet by mouth in the morning midodrine (Proamatine) 2.5 MG tablet Indications: Hypotension, unspecified hypotension type Take 1 tablet (2.5 mg) by mouth in the morning and 1 tablet (2.5 mg) before bedtime. 180 tablet 1 03/01/2024 03/31/2024 Active Multi For Him 50+ (2 sources) Multi For Him 50 + as directed Orally Active Multivitamin preparation (5 sources) Start: 07-10-2018 take 1 tablet by mouth once daily Multivitamin Active 1 TAB PO Daily July 09, 2018 11:00pm Start: 07-10-2018 take 1 tablet by erica th once daily Multivitamin Active 1 TAB PO Daily July 10, 2018 12:00am nystatin 541424 unt/ml / triamcinolone acetonide 1 mg/ml topical cream (13 sources) Polyene Antifungal, Corticosteroid nystatin-triamcinolo ne (Mycolog II) cream Apply topically 2 (two) times a day. Active Nystatin-Triamcinolon e 789164-0.1 UNIT/GM-% (2 sources) Nystatin-Triamci nolone 471525-2.1 UNIT/GM-% 1 application to affected area Externally Twice a day Active sildenafil 20 mg oral tablet (4 sources) Phosphodiesterase 5 Inhibitor Start: 08-10-19 18 Sildenafil Citrate 20 MG 5 tablets Orally As needed July, Active Start: 08-09-2017 take 0.5-1 tablets b y mouth once daily as needed Viagra 100 MG 0.5 - 1 tablet as needed Orally Once a day July, Not-Taking Suprep Bowel Prep Kit 17.5-3.13-1.6 GM/180ML (2 sources) Start: 06-19-2018 Suprep Bowel Prep Kit 17.5-3.13-1.6 GM/180ML 177 ML DIRECTED AT 4 PM AND 11 PM Orally Twice a day for 1 day(s) if not covered by insurance please fill with alternate prep that is covered Jun, Active tadalafil 20 mg oral tablet (16 sources) Phosphodiesterase 5 Inhibitor Start: 05-18-2024 take 1 tablet by mouth every twenty-four hours Tadalafil (Cialis) 20 mg tablet Active 20 MG PO Daily as needed for ED May 18, 2024 1:00am administer approximately 30min before sexual activity; do not use more than 1 dose per 24hrs Start: 06-03-2020 End: 03-01-2024 take 1 tablet by mouth once daily as needed Tadalafil 20 MG Oral Tablet TAKE 1 TABLET BY MOUTH EVERY DAY NEEDED Quantity: 30 Refills: 0 Ordered: 03-Jun-2020 DO Start : 03-Jun-2020 Complete terazosin 1 mg oral capsule (20 sources) alpha-Adrenergic Brittany Start: 11-08-2017 End: 05-28-2024 take 1 capsule by mouth once daily terazosin (Hytrin) 1 MG capsule Indications: Essential hypertension (CMS/HCC) Take 1 capsule (1 mg) by mouth Daily 90 capsule 3 12/01/2023 Active valACYclovir 1000 mg oral tablet (4 sources) Herpesvirus Nucleoside Analog DNA Polymerase Inhibitor, Herpes Simplex Virus Nucleoside Analog DNA Polymerase Inhibitor, Herpes Zoster Virus Nucleoside Analog DNA Polymerase Inhibitor Start: 05-24-2024 Valacyclovir 1 gram tablet Active 1000 MG PO Three times daily May 24, 2024 12:00am Start: 05-17-2024 take 1 tablet by erica three times daily valACYclovir (Valtrex) 1 g tablet Indications: Herpes zoster without complication Take 1 tablet, by mouth, three times a day x 7 days 21 tablet 05/17/2024 Active Completed/Discontinued Medications Medication Drug Class(es) Dates Sig (Normalized) Sig (Original) calcium carbonate 1500 mg oral tablet (8 sources) Start: 07-10-2018 End: 05-18-2024 take 1 tablet by mouth once daily Calcium Carbonate (Calcium 600) 600 mg calcium (1,500 mg) Tablet Discontinued 600 MG PO Daily July 10, 2018 12:00am May 18, 2024 7:02pm linseed oil 1000 mg oral capsule (8 sources) Start: 07-10-2018 End: 05-18-2024 take 1 capsule by mouth once daily Flaxseed Oil 1,000 mg Capsule Discontinued 1000 MG PO Daily July 10, 2018 12:00am May 18, 2024 7:02pm lisinopril 2.5 mg oral tablet (20 sources) Angiotensin Converting Enzyme Inhibitor Start: 07-10-2018 End: 05-24-2024 take 1 tablet by mouth once daily Lisinopril 2.5 mg tablet Discontinued 1 TAB PO Daily July 10, 2018 12:00am May 24, 2024 5:36pm meclizine hydrochloride 25 mg oral tablet (3 sources) Antiemetic take 1 tablet by mouth three times daily as needed Meclizine HCl - 25 MG Oral Tablet TAKE 1 TABLET 3 TIMES DAILY NEEDED. Quantity: 0 Refills: 0 Ordered: 13-May-2021 DO Active Multivitamin Tablet (3 sources) Start: 07-10-2018 End: 05-18-2024 take 1 tablet by mouth once daily Multivitamin Tablet Discontinued 1 TAB PO Daily July 10, 2018 12:00am May 18, 2024 7:02pm [place] 9-Rnw-Cin-Fish Oil (Fish Oil) 1,000 mg (120 mg-180 mg) Capsule (8 sources) Start: 07-10-2018 End: 05-18-2024 take 1 capsule by mouth once daily [place] 2-Aic-Bsl-Fish Oil (Fish Oil) 1,000 mg (120 mg-180 mg) Capsule Discontinued 1 CAP PO Daily July 10, 2018 12:00am May 18, 2024 7:02pm Start: 07-10-2018 take 1 capsule by mo uth once daily [place] 0-Rup-Mmj-Fish Oil (Fish Oil) 1,000 mg (120 mg-180 mg) Capsule Active 1 CAP PO Daily July 09, 2018 11:00pm Start: 07-10-2018 take 1 capsule by mo uth once daily [place] 1-Slj-Luh-Fish Oil (Fish Oil) 1,000 mg (120 mg-180 mg) Capsule Active 1 CAP PO Daily July 10, 2018 12:00am zolpidem tartrate 10 mg oral tablet (2 sources) gamma-Aminobutyric Acid-ergic Agonist Start: 10-26-2010 take 1 tablet by mouth at bedtime as needed Ambien 10 MG 1 tablet at bedtime as needed Orally PRN for 30 days Oct, Not-Taking Problems Active Problems Problem Classification Problem Date Documented Da te Episodic/Chronic Anxiety disorders (2 sources) Anxiety; Translations: [Anxiety disorder, unspecified] Chronic Conditions associated with dizziness or vertigo (3 sources) Dizziness; Translations: [Dizziness and giddiness] Onset: 05-26-2022 Episodic Coronary atherosclerosis and other heart disease (20 sources) Atherosclerotic heart disease of [place] coronary artery without angina pectoris; Translations: [Coronary atherosclerosis] Onset: 01-05-2018 08-01-2023 Chronic Coronary atherosclerosis and other heart disease (1 source) Coronary atherosclerosis and other heart disease Onset: 01-05-2018 Delirium, dementia, and amnestic and other cognitive disorders (3 sources) Dementia; Translations: [Unspecified dementia without behavioral disturbance] Onset: 05-23-2024 05-25-2024 Chronic Diabetes mellitus with complications (17 sources) Type 2 diabetes mellitus; Translations: [Type 2 diabetes mellitus with other specified complication] Onset: 08-20-2022 08-20-2022 Chronic Diabetes mellitus with complications (1 source) Diabetes mellitus with complications Onset: 01-05-2018 Diabetes mellitus without complication (12 sources) Diabetes mellitus; Translations: [Diabetes mellitus without mention of complication, type II or unspecified type, not stated as uncontrolled] Onset: 04-12-2023 Chronic Disorders of lipid metabolism (20 sources) Hyperlipidemia; Translations: [Other and unspecified hyperlipidemia] Onset: 08-20-2022 08-01-2023 Chronic Essential hypertension (20 sources) Hypertensive disorder; Translations: [Essential (primary) hypertension] Onset: 08-20-2022 08-20-2022 Chronic Gastroduodenal ulcer (except hemorrhage) (2 sources) Gastric ulcer; Translations: [Gastric ulcer, unspecified as acute or chronic, without hemorrhage or perforation] Chronic Hemorrhoids (2 sources) Hemorrhoids; Translations: [Unspecified hemorrhoids] Episodic Immunizations and screening for infectious disease (2 sources) Encounter for immunization; Translations: [Needs influenza immunization] Onset: 01-15-2021 Resolved: 01-15-2021 Episodic Malaise and fatigue (11 sources) Asthenia; Translations: [Weakness] Onset: 05-23-2024 05-18-2024 Episodic Mood disorders (16 sources) Depressive disorder; Translations: [Other specified depressive episodes] Onset: 08-20-2022 Chronic Other aftercare (1 source) Patient encounter status; Translations: [Other jail (current) drug therapy] 03-01-2024 Episodic Other circulatory disease (1 source) Low blood pressure; Translations: [Hypotension, unspecified] 03-01-2024 Episodic Other circulatory disease (1 source) Orthostatic hypotension; Translations: [Orthostatic hypotension] 05-25-2024 Episodic Other circulatory disease (2 sources) Orthostatic hypotension; Translations: [Orthostatic hypotension] Onset: 05-23-2024 05-28-2024 Episodic Other connective tissue disease (2 sources) Recurrent falls ; Translations: [Repeated falls] 05-23-2024 Episodic Other connective tissue disease (3 sources) Repeated falls; Translations: [History of fall] Onset: 05-23-2024 05-23-2024 Episodic Other gastrointestinal disorders (8 sources) Stool DNA-based colorectal cancer screening positive; Translations: [Other fecal abnormalities] 07-10-2018 Episodic Other hereditary and degenerative nervous system conditions (14 sources) Impaired cognition; Translations: [Mild cognitive impairment, so stated] Onset: 08-20-2022 08-20-2022 Chronic Other injuries and conditions due to external causes (3 sources) At risk for falls ; Translations: [History of fall] 08-01-2023 Episodic Other male genital disorders (6 sources) Male erectile dysfunction, unspecified; Translations: [Erectile dysfunction] Onset: 04-12-2023 04-12-2023 Chronic Other male genital disorders (2 sources) Impotence; Translations: [Male erectile dysfunction, unspecified] Chronic Other male genital disorders (2 sources) Impotence of organic origin; Translations: [Male erectile dysfunction, unspecified] Chronic Other nervous system disorders (3 sources) Tremor; Translations: [Tremor, unspecified] 05-18-2024 Episodic Other nervous system disorders (3 sources) Tremor, unspecified; Translations: [Abnormal involuntary movements] Onset: 05-23-2024 05-23-2024 Episodic Other nutritional; endocrine; and metabolic disorders (5 sources) Obesity; Translations: [Obesity, unspecified] Chronic Other nutritional; endocrine; and metabolic disorders (2 sources) Obese class II; Translations: [Body mass index (BMI) 37.0-37.9, adult] Chronic Other nutritional; endocrine; and metabolic disorders (2 sources) Body mass index 30+ - obesity; Translations: [Body mass index (BMI) 36.0-36.9, adult] Chronic Other nutritional; endocrine; and metabolic disorders (1 source) Obese class I; Translations: [Body mass index (BMI) 33.0-33.9, adult] Chronic Other nutritional; endocrine; and metabolic disorders (1 source) Body mass index (BMI) 33.0-33.9, adult Chronic Other nutritional; endocrine; and metabolic disorders (2 sources) Body mass index (BMI) 32.0-32.9, adult; Translations: [Body mass index (BMI) 32.0-32.9, adult] Onset: 02-23-2024 Chronic Other nutritional; endocrine; and metabolic disorders (14 sources) Obesity caused by energy imbalance; Translations: [Other obesity due to excess calories] Onset: 08-20-2022 08-20-2022 Chronic Other nutritional; endocrine; and metabolic disorders (2 sources) Body mass index 25-29 - overweight; Translations: [Overweight] Onset: 08-01-2023 08-01-2023 Episodic Other skin disorders (1 source) Inflamed seborrheic keratosis; Translations: [Inflamed seborrheic keratosis] 05-17-2024 Episodic Other skin disorders (1 source) Seborrheic keratosis; Translations: [Other seborrheic keratosis] 05-17-2024 Episodic Other skin disorders (1 source) Actinic keratosis; Translations: [Actinic keratosis] 05-17-2024 Episodic Other upper respiratory infections (2 sources) Chronic sinusitis; Translations: [Chronic sinusitis, unspecified] Chronic Residual codes; unclassified (9 sources) Sleep apnea; Translations: [Unspecified sleep apnea] Onset: 04-12-2023 08-01-2023 Chronic Residual codes; unclassified (20 sources) Obstructive sleep apnea syndrome; Translations: [Obstructive sleep apnea (adult) (pediatric)] Onset: 08-31-2023 10-27-2023 Chronic Residual codes; unclassified (6 sources) Obstructive sleep apnea (adult) (pediatric); Translations: [Obstructive sleep apnea (adult)(pediatric)] Onset: 04-12-2023 Chronic Residual codes; unclassified (2 sources) Sleep apnea, unspecified; Translations: [Sleep apnea, unspecified] Onset: 04-12-2023 Chronic Residual codes; unclassified (1 source) Insomnia; Translations: [Insomnia, unspecified] Episodic Residual codes; unclassified (1 source) Insomnia, unspecified Episodic Residual codes; unclassified (1 source) Other specified health status Episodic Unclassified (2 sources) Athscl heart disease of [place] coronary artery w/o ang pctrs / I25.10(ICD-9) Onset: 01-05-2018 Unclassified (1 source) Coronary angioplasty status / Z98.61(ICD-9) Onset: 01-05-2018 Unclassified (1 source) A [facility] screening has identified you as FRAIL or AT RISK FOR FRAILTY. This puts you at a higher risk for infection, illness, falls, and other injuries. Here are four ways to help you reduce your risk of frailty: 1. IDENTIFY EARLY SIGNS OF FRAILTY Discuss contributing factors and concerns with your doctor 2. BE ACTIVE Walking and light strengthening exercises will help reduce weakness 3. EAT WELL Aim for three healthy meals a day that are high in protein 4. THINK POSITIVE Keep your mind active by being sociable and continuing to learn References: Stay Strong: Four Ways to Beat the Frailty Risk [email or web address]/ uaip-fesfzj-ghya-ways -pz-fdww-tzk-fra ilty-risk 05-28-2024 Viral infection (1 source) Herpes zoster without complication; Translations: [Zoster without complications] 05-17-2024 Episodic Past or Other Problems Problem Classification Problem Date Documented Da te Episodic/Chronic Coronary atherosclerosis and other heart disease (20 sources) Past history of procedure; Translations: [Percutaneous transluminal coronary angioplasty status] Onset: 05-26-2022 08-01-2023 Episodic Hyperplasia of prostate (9 sources) Benign prostatic hyperplasia; Translations: [Benign localized hyperplasia of prostate without urinary obstruction and other lower urinary tract symptoms (LUTS)] Resolved: 05-13-2021 Chronic Mood disorders (13 sources) Mood disorders Onset: 08-31-2023 08-31-2023 Other nutritional; endocrine; and metabolic disorders (5 sources) H/O: obesity; Translations: [Personal history of other endocrine, metabolic, and immunity disorders] Resolved: 05-13-2021 Episodic Other nutritional; endocrine; and metabolic disorders (2 sources) Overweight; Translations: [Overweight] Onset: 08-01-2023 Episodic Screening and history of mental health and substance abuse codes (9 sources) Ex-smoker; Translations: [Personal history of tobacco use] Onset: 08-01-2023 08-01-2023 Episodic Unclassified (1 source) Onset: 08-01-2023 08-01-2023 Results Test Name Value Interpretation Reference Range Facility Basic Metabolic Panelon 05-12 Anion gap [Moles/Vol] 9.9 mmol/L Normal 6.0-15.0 [facility] Comment on above: Performed By: #### C BCNO, BMP, MG #### [address] Calcium [Mass/Vol] 8.3 mg/dL Low 8.6-10.3 [facility] Comment on above: Performed By: #### C BCNO, BMP, MG #### [facility] [address] Chloride [Moles/Vol] 107 mmol/L Normal 98-107 [facility] Comment on above: Performed By: #### C BCNO, BMP, MG #### [address] CO2 [Moles/Vol] 26.3 mmol/L Normal 21.0-31.0 [facility] Comment on above: Performed By: #### C BCNO, BMP, MG #### [address] Creatinine [Mass/Vol] 0.90 mg/dL Normal 0.70-1.30 [facility] Comment on above: Performed By: #### C BCNO, BMP, MG #### [place] [address] [place] Creatinine Clr Calc Pharmacy 66.83 Normal [facility] Comment on above: Performed By: #### C BCNO, BMP, MG #### [place] [address] [place] GFR/1.73 sq M.predicted MDRD (S/P/Bld) [Vol rate/Area] mL/min/{1.73_m2} Normal [facility] [facility]ician Group Comment on above: Performed By: #### C BCNO, BMP, MG #### [address] Glucose [Mass/Vol] 126 mg/dL High 70-100 [facility] Comment on above: Result Comment: [place] Glucose Reference Range is dependent on time and content of last meal. Glucose of more than 200 mg/dL in a nonstressed, ambulatory subject supports the diagnosis of Diabetes Mellitus. ADA recommended reference range Performed By: #### C BCNO, BMP, MG #### [address] Potassium [Moles/Vol] 4.2 mmol/L Normal 3.5-5.1 [facility] Comment on above: Performed By: #### C BCNO, BMP, MG #### [facility] [address] [place] [address] [place] Sodium [Moles/Vol] 139 mmol/L Normal 136-145 [facility] Comment on above: Performed By: #### C BCNO, BMP, MG #### [facility] [address] [place] [address] [place] Urea nitrogen [Mass/Vol] 24 mg/dL Normal 7-25 [facility] Comment on above: Performed By: #### C BCNO, BMP, MG #### [facility] [address] Calcium [Mass/volume] in Ser um or PlasmaOrdered By: Dread Toney on 05-28-2024 Calcium [Mass/Vol] Calcium [Mass/volume ] in Serum or Plasma Low 8.6-10.3 [facility] Carbon dioxide, total [Moles /volume] in Serum or PlasmaOrdered By: Dread Toney on 05-28-2024 CO2 [Moles/Vol] Carbon dioxide, tota l [Moles/volume] in Serum or Plasma 21.0-31.0 [facility] Chloride [Moles/volume] in S grady or PlasmaOrdered By: Dread Toney on 05-28-2024 Chloride [Moles/Vol] Chloride [Moles/volume] in Serum or Plasma 98-107 [facility] Creatinine [Mass/volume] in Serum or PlasmaOrdered By: Dread Toney on 05-28-2024 Creatinine [Mass/Vol] Creatinine [Mass/volume] in Serum or Plasma 0.70-1.30 [facility] Erythrocyte distribution wid th Auto (RBC) [Ratio]Ordered By: Dread Toney on 05-28-2024 Erythrocyte distribution width (RBC) [Ratio] Erythrocyte distribution width [Ratio] by Automated count 12.0-14.8 [facility] Glucose Glucometer (BldC) [M ass/Vol]Ordered By: Dread Toney on 05-28-2024 Glucose [Mass/Vol] Capillary blood glucose measurement by glucometer (mass/volume) [facility] Comment on above: Random Glucose Refer ence Range is dependent on time and content of last meal. Glucose of more than 200 mg/dL in a nonstressed, ambulatory subject supports the diagnosis of Diabetes Mellitus. Glucose Poct Glucometerson 0 05-28-2024 Glucose [Mass/Vol] 215 mg/dL Normal [facility] Comment on above: Result Comment: [place] Glucose Reference Range is dependent on time and content of last meal. Glucose of more than 200 mg/dL in a nonstressed, ambulatory subject supports the diagnosis of Diabetes Mellitus. PERFORMED BY: [place] [address] PATHOLOGIST LABEL FOLDER JOSUE DAMON M.D. Performed By: #### C FRANNIE BHATTI MG #### [facility] [address] [place] [address] [facility] Glucose [Mass/Vol] 127 mg/dL Normal [facility] Comment on above: Result Comment: [place] Glucose Reference Range is dependent on time and content of last meal. Glucose of more than 200 mg/dL in a nonstressed, ambulatory subject supports the diagnosis of Diabetes Mellitus. PERFORMED BY: [place] [address] PATHOLOGIST LABEL FOLDER JOSUE DAMON M.D. Performed By: #### FRANNIE BOWENS MG #### [facility] [address] [place], [place] [id number] [facility] Glucose [Mass/volume] in Ser um or PlasmaOrdered By: Dread Toney on 05-28-2024 Glucose [Mass/Vol] Glucose [Mass/volume ] in Serum or Plasma High 70-100 [facility] Comment on above: ADA recommended refe rence rangeRandom Glucose Reference Range is dependent on time and content of last meal. Glucose of more than 200 mg/dL in a nonstressed, ambulatory subject supports the diagnosis of Diabetes Mellitus. Hematocrit Auto (Bld) [Volum e fraction]Ordered By: Dread Toney on 05-28-2024 Hematocrit (Bld) [Volume fraction] Hematocrit [Volume Fraction] of Blood by Automated count Low 38.8-50.0 [facility] Hemoglobin [Mass/volume] in BloodOrdered By: Dread Toney on 05-28-2024 Hemoglobin (Bld) [Mass/Vol] Hemoglobin [Mass/volume] in Blood Low 13.0-17.0 [facility] Hemogram CBC Without Diffon 05-28-2024 Erythrocyte distribution width (RBC) [Ratio] 14.1 % Normal 12.0-14.8 [facility] Comment on above: Performed By: #### C BCNO, BMP, MG #### [address] Hematocrit (Bld) [Volume fraction] 36.2 % Low 38.8-50.0 [facility] Comment on above: Performed By: #### C BCNO, BMP, MG #### [address] Hemoglobin (Bld) [Mass/Vol] 12.3 g/dL Low 13.0-17.0 [facility] Comment on above: Performed By: #### C BCNO, BMP, MG #### [address] MCH (RBC) [Entitic mass] 30.9 pg Normal 27.5-35.2 [facility] Comment on above: Performed By: #### C BCNO, BMP, MG #### [address] MCV (RBC) [Entitic vol] 91.0 fL Normal 83.5-101 T he [facility] Comment on above: Performed By: #### C BCNO, BMP, MG #### [address] Mean Corpuscular HGB Conc 33.9 g/dL Normal 32.5-35.6 [facility] Comment on above: Performed By: #### C BCNO, BMP, MG #### [address] Platelet mean volume (Bld) [Entitic vol] 8.9 fL Normal 6.6-10.1 [facility] Comment on above: Result Comment: PERF ORMED BY: [place] [address] PATHOLOGIST LABEL FOLDER JOSUE DAMON M.D. Performed By: #### C BCNO, BMP, MG #### [facility] [address] [place] [address] Platelets (Bld) [#/Vol] 221 10*3/uL Normal 150-450 [facility] Comment on above: Performed By: #### C BCNO, BMP, MG #### [address] RBC (Bld) [#/Vol] 3.98 10*6/uL Normal 3.90-5.60 [facility] Comment on above: Performed By: #### C BCNO, BMP, MG #### [address] WBC (Bld) [#/Vol] 8.7 10*3/uL Normal 4.1-10.5 [facility] Comment on above: Performed By: #### C BCNO, BMP, MG #### [address] Leukocytes [#/volume] correc marimar for nucleated erythrocytes in Blood by Automated counOrdered By: Dread Toney on 05-28-2024 WBC corrected for nucl RBC Auto (Bld) [#/Vol] Leukocytes [#/volume] corrected for nucleated erythrocytes in Blood by Automated coun 4.1-10.5 [facility] MCH Auto (RBC) [Entitic mass ]Ordered By: Dread Toney on 05-28-2024 MCH (RBC) [Entitic mass] MCH [Entitic mass] by Automated count 27.5-35.2 [facility] MCHC Auto (RBC) [Mass/Vol]Or dered By: Dread Toney on 05-28-2024 MCHC (RBC) [Mass/Vol] MCHC [Mass/volume] by Automated count 32.5-35.6 [facility] MCV Auto (RBC) [Entitic vol] Ordered By: Dread Toney on 05-28-2024 MCV (RBC) [Entitic vol] MCV [Entitic vol ume] by Automated count 83.5-101 [facility] Magnesiumon 05-28-2024 Magnesium [Mass/Vol] 1.6 mg/dL Low 1.9-2.7 [facility] Comment on above: Result Comment: PERF ORMED BY: [facility] [address] [place] [address] PATHOLOGIST LABEL FOLDER JOSUE DAMON M.D. Performed By: #### C BCNO, BMP, MG #### [facility] [address] Magnesium [Mass/volume] in S grady or PlasmaOrdered By: Dread Toney on 05-28-2024 Magnesium [Mass/Vol] Magnesium [Mass/volume] in Serum or Plasma Low 1.9-2.7 [facility] No Panel InformationOrdered By: Dread Toney on 05-28-2024 Estimated GFR (CKD-EPI) > 60.0 mL/Min [facility] Creatinine Clearance (Chem 66.83 [facility] Platelet mean volume Auto (B ld) [Entitic vol]Ordered By: Dread Toney on 05-28-2024 Platelet mean volume (Bld) [Entitic vol] Platelet mean volume [Entitic volume] in Blood by Automated count 6.6-10.1 [facility] Platelets Auto (Bld) [#/Vol] Ordered By: Dread Toney on 05-28-2024 Platelets (Bld) [#/Vol] Platelets [#/vol ume] in Blood by Automated count 150-450 [facility] Potassium [Moles/volume] in Serum or PlasmaOrdered By: Dread Toney on 05-28-2024 Potassium [Moles/Vol] Potassium [Moles/volume] in Serum or Plasma 3.5-5.1 [facility] RBC Auto (Bld) [#/Vol]Ordere d By: Dread Toney on 05-28-2024 RBC (Bld) [#/Vol] Erythrocytes [#/volume] in Blood by Automated count 3.90-5.60 [facility] Serum or plasma anion gap de terminationOrdered By: Dread Toney on 05-28-2024 Anion gap [Moles/Vol] Serum or plasma an ion gap determination 6.0-15.0 [facility] Sodium [Moles/volume] in Ser um or PlasmaOrdered By: Dread Toney on 05-28-2024 Sodium [Moles/Vol] Sodium [Moles/volume ] in Serum or Plasma 136-145 [facility] Urea nitrogen [Mass/volume] in Serum or PlasmaOrdered By: Dread Toney on 05-28-2024 Urea nitrogen [Mass/Vol] Urea nitrogen [Mass/volume] in Serum or Plasma 7-25 [facility] Glucose Poct Glucometerson 0 05-27-2024 Commemt1 Glu2: Cleaned Meter Normal [facility] Comment on above: Result Comment: PERF ORMED BY: [address] [address] PATHOLOGIST LABEL FOLDER JOSUE DAMON M.D. Performed By: #### G LULS #### Point of Care testing , Glucose [Mass/Vol] 128 mg/dL Normal [facility] Comment on above: Result Comment: [place] Glucose Reference Range is dependent on time and content of last meal. Glucose of more than 200 mg/dL in a nonstressed, ambulatory subject supports the diagnosis of Diabetes Mellitus. Performed By: #### G LULS #### Point of Care testing , Commemt1 Glu2: Cleaned Meter Normal [facility] Comment on above: Result Comment: PERF ORMED BY: [address] [place] [address] PATHOLOGIST LABEL FOLDER JOSUE DAMON M.D. Performed By: #### G LULS #### Point of Care testing , Glucose [Mass/Vol] 114 mg/dL Normal [facility] Comment on above: Result Comment: [place] Glucose Reference Range is dependent on time and content of last meal. Glucose of more than 200 mg/dL in a nonstressed, ambulatory subject supports the diagnosis of Diabetes Mellitus. Performed By: #### G LULS #### Point of Care testing , Glucose [Mass/Vol] 126 mg/dL Normal [facility] Comment on above: Result Comment: [place] Glucose Reference Range is dependent on time and content of last meal. Glucose of more than 200 mg/dL in a nonstressed, ambulatory subject supports the diagnosis of Diabetes Mellitus. PERFORMED BY: [address] [place] [address] PATHOLOGIST LABEL FOLDER JOSUE DAMON M.D. Performed By: #### G LULS #### Point of Care testing , Glucose [Mass/Vol] 135 mg/dL Normal [facility] Comment on above: Result Comment: [place] Glucose Reference Range is dependent on time and content of last meal. Glucose of more than 200 mg/dL in a nonstressed, ambulatory subject supports the diagnosis of Diabetes Mellitus. PERFORMED BY: [address] [address] PATHOLOGIST LABEL FOLDER JOSUE DAMON M.D. Performed By: #### G LULS #### Point of Care testing , No Panel InformationOrdered By: Dread Toney on 05-27-2024 Bedside Glucose Comment Glu2: cleaned meter [facility] Glucose Poct Glucometerson 0 05-26-2024 Glucose [Mass/Vol] 150 mg/dL Normal [facility] Comment on above: Result Comment: [place] Glucose Reference Range is dependent on time and content of last meal. Glucose of more than 200 mg/dL in a nonstressed, ambulatory subject supports the diagnosis of Diabetes Mellitus. PERFORMED BY: [address] [place] [address] PATHOLOGIST LABEL FOLDER JOSUE DAMON M.D. Performed By: #### G LULS #### Point of Care testing , Glucose [Mass/Vol] 140 mg/dL Normal [facility] Comment on above: Result Comment: [place] Glucose Reference Range is dependent on time and content of last meal. Glucose of more than 200 mg/dL in a nonstressed, ambulatory subject supports the diagnosis of Diabetes Mellitus. PERFORMED BY: [address] [place] [address] PATHOLOGIST LABEL FOLDER JOSUE DAMON M.D. Performed By: #### G LULS #### Point of Care testing , Glucose [Mass/Vol] 102 mg/dL Normal [facility] Comment on above: Result Comment: [facility][note 3] Glucose Reference Range is dependent on time and content of last meal. Glucose of more than 200 mg/dL in a nonstressed, ambulatory subject supports the diagnosis of Diabetes Mellitus. PERFORMED BY: [place] [address] PATHOLOGIST LABEL FOLDER JOSUE DAMON M.D. Performed By: #### G LULS #### Point of Care testing , Glucose [Mass/Vol] 120 mg/dL Normal [facility] Comment on above: Result Comment: [facility][note 3] Glucose Reference Range is dependent on time and content of last meal. Glucose of more than 200 mg/dL in a nonstressed, ambulatory subject supports the diagnosis of Diabetes Mellitus. PERFORMED BY: [place] [address] PATHOLOGIST LABEL FOLDER JOSUE DAMON M.D. Performed By: #### C BCNO, BMP, MG #### [address] MR head/brain wo conon 05-26 MR head/brain wo con [facility] [place] [address] MRI Report Signed Patient: Des Jacob MR#: [id number] : 1940 Acct:[id number] Age/Sex: 83 / M ADM Date: 05/23/24 Loc: Room: [address] [place] [address] Type: ADM INOo Attending Dr: Dread Toney DO Copies to: DO Dread Heller DO Ordering Provider: Prashant Garcia DO Date of Service: 05/26/24 MR/MR head/brain wo con: falls, nystagmus, dysconjugate gaze, dementia MRI the Brain without contrast TECHNIQUE: Multiplanar T1 and T2-weighted imaging of the brain. HISTORY: Frequent falls at home. Confusion. COMPARISON: Head CT 05/23/2024 VENTRICLES: Unremarkable BRAIN VOLUME: Mild atrophy BRAIN PARENCHYMAL SIGNAL INTENSITY: Scattered foci of increased T2/FLAIR signal intensity of the brain parenchyma is consistent with chronic small vessel ischemic changes. BLEED: None MASS EFFECT: No mass effect DIFFUSION RESTRICTION: None GRADIENT ECHO PARENCHYMAL SIGNAL LOSS: None MIDBRAIN: The midbrain structures are unremarkable. JOSE: Unremarkable MEDULLA: Unremarkable INTERNAL AUDITORY CANALS: Unremarkable SINUSES: Unremarkable ORBITS: Grossly unremarkable MASTOIDS: Unremarkable ENHANCEMENT: No contrast enhancement given MR/MR head/brain wo con IMPRESSION: No acute intracranial process. Impression dictated by: Phani Owens M.D.05/26/2024 10:23 AM Dictation Location: [place] [address] Transcribed By: [facility] 05/26/24 1023 Dictated By: Phani Owens DO 05/26/24 1005 Signed By: 05/26/24 1023 Normal [facility] Magnetic resonance imaging r eportOrdered By: Phani Owens on 05-26-2024 Study report [facility] [place] [address] MRI Report Signed Patient: Des Jacob MR#: [id number] : 1940 Acct:[id number] Age/Sex: 83 / M ADM Date: 5 Loc: Room: [address] [place] [address] Type: ADM INOo Attending Dr: Dread Toney DO Copies to: DO Dread Heller DO~ Ordering Provider: Prashant Garcia DO Date of Service: 05/26/24 MR/MR head/brain wo con: falls, nystagmus, dysconjugate gaze, dementia MRI the Brain without contrast TECHNIQUE: Multiplanar T1 and T2-weighted imaging of the brain. HISTORY: Frequent falls at home. Confusion. COMPARISON: Head CT 05/23/2024 VENTRICLES: Unremarkable BRAIN VOLUME: Mild atrophy BRAIN PARENCHYMAL SIGNAL INTENSITY: Scattered foci of increased T2/FLAIR signal intensity of the brain parenchyma is consistent with chronic small vessel ischemic changes. BLEED: None MASS EFFECT: No mass effect DIFFUSION RESTRICTION: None GRADIENT ECHO PARENCHYMAL SIGNAL LOSS: None MIDBRAIN: The midbrain structures are unremarkable. JOSE: Unremarkable MEDULLA: Unremarkable INTERNAL AUDITORY CANALS: Unremarkable SINUSES: Unremarkable ORBITS: Grossly unremarkable MASTOIDS: Unremarkable ENHANCEMENT: No contrast enhancement given MR/MR head/brain wo con IMPRESSION: No acute intracranial process. Impression dictated by: Phani Owens M.D.05/26/2024 10:23 AM Dictation Location: [place] [address] Transcribed By: [facility] 05/26/24 1023 Dictated By: Phani Owens DO 05/26/24 1005 Signed By: 05/26/24 1023 [facility] Glucose Poct Glucometerson 0 05-25-2024 Glucose [Mass/Vol] 160 mg/dL Normal [facility] Comment on above: Result Comment: [facility][note 3] Glucose Reference Range is dependent on time and content of last meal. Glucose of more than 200 mg/dL in a nonstressed, ambulatory subject supports the diagnosis of Diabetes Mellitus. PERFORMED BY: [address] [address] PATHOLOGIST LABEL FOLDER JOSUE DAMON M.D. Performed By: #### G LULS #### Point of Care testing , Glucose [Mass/Vol] 190 mg/dL Normal [facility] Comment on above: Result Comment: [facility][note 3] Glucose Reference Range is dependent on time and content of last meal. Glucose of more than 200 mg/dL in a nonstressed, ambulatory subject supports the diagnosis of Diabetes Mellitus. PERFORMED BY: [address] [address] PATHOLOGIST LABEL FOLDER JOSUE DAMON M.D. Performed By: #### G LULS #### Point of Care testing , Glucose [Mass/Vol] 98 mg/dL Normal [facility] Comment on above: Result Comment: [facility][note 3] Glucose Reference Range is dependent on time and content of last meal. Glucose of more than 200 mg/dL in a nonstressed, ambulatory subject supports the diagnosis of Diabetes Mellitus. PERFORMED BY: [address] [address] PATHOLOGIST LABEL FOLDER JOSUE DAMON M.D. Performed By: #### G LULS #### Point of Care testing , Commemt1 Glu2: Cleaned Meter Normal [facility] Comment on above: Result Comment: PERF ORMED BY: [facility] [address] [place] [address] PATHOLOGIST LABEL FOLDER JOSUE DAMON M.D. Performed By: #### G LULS #### Point of Care testing , Glucose [Mass/Vol] 126 mg/dL Normal [facility] Comment on above: Result Comment: [facility][note 3] Glucose Reference Range is dependent on time and content of last meal. Glucose of more than 200 mg/dL in a nonstressed, ambulatory subject supports the diagnosis of Diabetes Mellitus. Performed By: #### G LULS #### Point of Care testing , A1C with Estimated Average Khari gandara 05-24-2024 Glucose [Mass/Vol] 137 mg/dL Normal [facility] Comment on above: Result Comment: PERF ORMED BY: [facility] [address] [place] [address] PATHOLOGIST LABEL FOLDER JOSUE DAMON M.D. Performed By: #### G LULS #### Point of Care testing , HbA1c (Bld) [Mass fraction] 6.4 % High 4.3-5.6 [facility] Comment on above: Result Comment: Incr eased risk for diabetes: 5.7 - 6.4 diabetes: >6.4 glycemic control for adults with diabetes: <7.0 Performed By: #### G LULS #### Point of Care testing , Ammoniaon 05-24-2024 Ammonia (P) [Moles/Vol] 18 umol/L Normal -35 T he [facility] Comment on above: Result Comment: PERF ORMED BY: [facility] [address] [place] [address] PATHOLOGIST LABEL FOLDER JOSUE DAMON M.D. Performed By: #### G LULS #### Point of Care testing , Ammonia [Moles/volume] in Pl asmaOrdered By: Prashant Garcia on 05-24-2024 Ammonia (P) [Moles/Vol] Ammonia [Moles/volume] in Plasma -35 [facility] Basic Metabolic Panelon 05-12 Anion gap [Moles/Vol] 12.7 mmol/L Normal 6.0-15.0 Th e [facility] Comment on above: Performed By: #### G LULS #### Point of Care testing , Calcium [Mass/Vol] 8.7 mg/dL Normal 8.6-10.3 [facility] Comment on above: Performed By: #### G LULS #### Point of Care testing , Chloride [Moles/Vol] 106 mmol/L Normal 98-107 [facility] Comment on above: Performed By: #### G LULS #### Point of Care testing , CO2 [Moles/Vol] 25.1 mmol/L Normal 21.0-31.0 [facility] Comment on above: Performed By: #### G LULS #### Point of Care testing , Creatinine [Mass/Vol] 0.92 mg/dL Normal 0.70-1.30 [facility] Comment on above: Performed By: #### G LULS #### Point of Care testing , Creatinine Clr Calc Pharmacy 64.34 Normal [facility] Comment on above: Performed By: #### G LULS #### Point of Care testing , GFR/1.73 sq M.predicted MDRD (S/P/Bld) [Vol rate/Area] mL/min/{1.73_m2} Normal [facility] Comment on above: Performed By: #### G LULS #### Point of Care testing , Glucose [Mass/Vol] 138 mg/dL High 70-100 [facility] Comment on above: Result Comment: [place] Glucose Reference Range is dependent on time and content of last meal. Glucose of more than 200 mg/dL in a nonstressed, ambulatory subject supports the diagnosis of Diabetes Mellitus. ADA recommended reference range Performed By: #### G LULS #### Point of Care testing , Potassium [Moles/Vol] 3.8 mmol/L Normal 3.5-5.1 [facility] Comment on above: Performed By: #### G LULS #### Point of Care testing , Sodium [Moles/Vol] 140 mmol/L Normal 136-145 [facility] Comment on above: Performed By: #### G LULS #### Point of Care testing , Urea nitrogen [Mass/Vol] 18 mg/dL Normal 7-25 [facility] Comment on above: Performed By: #### G LULS #### Point of Care testing , Basophils Auto (Bld) [#/Vol] Ordered By: Dread Toney on 05-24-2024 Basophils (Bld) [#/Vol] Automated basoph il count 0.0-0.2 [facility] Basophils/100 WBC Auto (Bld) Ordered By: Dread Toney on 05-24-2024 Basophils/100 WBC (Bld) Automated basophil % . [facility] Blood estimated average gluc ose determination by estimation from glycated hemoglobinOrdered By: Dread Toney on 05-24-2024 Average glucose Estimated from glycated hemoglobin (Bld) [Mass/Vol] Glucose mean value [Mass/volume] in Blood Estimated from glycated hemoglobin [facility] Cholesterol [Mass/volume] in Serum or PlasmaOrdered By: Dread Toney on 05-24-2024 Cholesterol [Mass/Vol] Cholesterol [Mass/volume] in Serum or Plasma Low 140-200 [facility] Comment on above: Chol less than 200 m g/dl low riskChol 201-239 mg/dl borderline riskChol 240 mg/dl and greater high risk Cholesterol in HDL [Mass/vol ume] in Serum or PlasmaOrdered By: rDead Toney on 05-24-2024 Cholesterol in HDL [Mass/Vol] Serum or plasma high density lipoprotein (HDL) cholesterol measurement 23-92 [facility] Comment on above: HDL CHOL ATP-III CLA SSIFICATION Cardiovascular RiskHDL > or equal to 60 mg/dL LOWHDL < 40 mg/dL HIGH Cholesterol in LDL Calc [Mas s/Vol]Ordered By: Dread Toney on 05-24-2024 Cholesterol in LDL [Mass/Vol] Cholesterol in LDL [Mass/volume] in Serum or Plasma by calculation 0-100 [facility] Comment on above: LDL ATP III CLASSIFI CATIONLDL less than 100 mg/dL OptimalLDL 100-129 mg/dL Near or above optimalLDL 130-159 mg/dL Borderline highLDL 160-189 mg/dL HighLDL greater than 189 mg/dL Very high Cholesterol in VLDL Calc [Ma ss/Vol]Ordered By: Dread Toney on 05-24-2024 Cholesterol in VLDL [Mass/Vol] Cholesterol in VLDL [Mass/volume] in Serum or Plasma by calculation [facility] Complete Blood Count Auto Di ffon 05-24-2024 Basophils (Bld) [#/Vol] 0.0 10*3/uL Normal 0.0-0.2 [facility] Comment on above: Result Comment: PERF ORMED BY: [facility] [address] [place] [address] PATHOLOGIST LABEL FOLDER JOSUE DAMON M.D. Performed By: #### G LULS #### Point of Care testing , Basophils/100 WBC (Bld) 0.4 % Normal . T [facility] Comment on above: Performed By: #### G LULS #### Point of Care testing , Eosinophils (Bld) [#/Vol] 0.1 10*3/uL Normal 0.0-0.45 [facility] Comment on above: Performed By: #### G LULS #### Point of Care testing , Eosinophils/100 WBC (Bld) 1.0 % Normal . [facility] Comment on above: Performed By: #### G LULS #### Point of Care testing , Erythrocyte distribution width (RBC) [Ratio] 14.3 % Normal 12.0-14.8 [facility] Comment on above: Performed By: #### G LULS #### Point of Care testing , Hematocrit (Bld) [Volume fraction] 38.6 % Low 38.8-50.0 [facility] Comment on above: Performed By: #### G LULS #### Point of Care testing , Hemoglobin (Bld) [Mass/Vol] 13.2 g/dL Normal 13.0-17.0 [facility] Comment on above: Performed By: #### G LULS #### Point of Care testing , Lymphocytes (Bld) [#/Vol] 1.4 10*3/uL Normal 1.00-4.8 [facility] Comment on above: Performed By: #### G LULS #### Point of Care testing , Lymphocytes/100 WBC (Bld) 19.2 % Normal . [facility] Comment on above: Performed By: #### G LULS #### Point of Care testing , MCH (RBC) [Entitic mass] 31.1 pg Normal 27.5-35.2 [facility] Comment on above: Performed By: #### G LULS #### Point of Care testing , MCV (RBC) [Entitic vol] 90.9 fL Normal 83.5-101 [facility] Comment on above: Performed By: #### G LULS #### Point of Care testing , Mean Corpuscular HGB Conc 34.2 g/dL Normal 32.5-35.6 [facility] Comment on above: Performed By: #### G LULS #### Point of Care testing , Monocytes (Bld) [#/Vol] 0.7 10*3/uL Normal 0.0-0.8 [facility] Comment on above: Performed By: #### G LULS #### Point of Care testing , Monocytes/100 WBC (Bld) 9.0 % Normal . [facility] Comment on above: Performed By: #### G LULS #### Point of Care testing , Neutrophils (Bld) [#/Vol] 5.3 10*3/uL Normal 1.8-7.7 [facility] Comment on above: Performed By: #### G LULS #### Point of Care testing , Neutrophils/100 WBC (Bld) 70.4 % Normal . [facility] Comment on above: Performed By: #### G LULS #### Point of Care testing , NRBC% 0.1 /100{WBC} Normal 0-0.5 [facility] Comment on above: Performed By: #### G LULS #### Point of Care testing , Platelet mean volume (Bld) [Entitic vol] 9.0 fL Normal 6.6-10.1 [facility] Comment on above: Performed By: #### G LULS #### Point of Care testing , Platelets (Bld) [#/Vol] 194 10*3/uL Normal 150-450 [facility] Comment on above: Performed By: #### G LULS #### Point of Care testing , RBC (Bld) [#/Vol] 4.24 10*6/uL Normal 3.90-5.60 [facility] Comment on above: Performed By: #### G LULS #### Point of Care testing , WBC (Bld) [#/Vol] 7.6 10*3/uL Normal 4.1-10.5 [facility] Comment on above: Performed By: #### G LULS #### Point of Care testing , Eosinophils Auto (Bld) [#/Vo l]Ordered By: Dread Toney on 05-24-2024 Eosinophils (Bld) [#/Vol] Automated eosinophil count 0.0-0.45 [facility] Eosinophils/100 WBC Auto (Bl d)Ordered By: Dread Toney on 05-24-2024 Eosinophils/100 WBC (Bld) Automated eosinophil % . [facility] Glucose Poct Glucometerson 0 05-24-2024 Commemt1 Glu2: Cleaned Meter Normal [facility] Comment on above: Result Comment: PERF ORMED BY: [facility] [address] [place] [address] PATHOLOGIST LABEL FOLDER JOSUE DAMON M.D. Performed By: #### G LULS #### Point of Care testing , Glucose [Mass/Vol] 184 mg/dL Normal [facility] Comment on above: Result Comment: [facility][note 3] Glucose Reference Range is dependent on time and content of last meal. Glucose of more than 200 mg/dL in a nonstressed, ambulatory subject supports the diagnosis of Diabetes Mellitus. Performed By: #### G LULS #### Point of Care testing , Hemoglobin A1c/Hemoglobin.to david in BloodOrdered By: Dread Toney on 05-24-2024 HbA1c (Bld) [Mass fraction] Hemoglobin A1c percentage High 4.3-5.6 [facility] Comment on above: Increased risk for d iabetes: 5.7 - 6.4diabetes: >6.4glycemic control for adults with diabetes: <7.0 Immunofixation,Serumon 05-24 Immunofixation, Serum Comment Critically abnormal . 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 PLEASE NOTE: Samples from patients receiving DARZALEX(R) (daratumumab) or SARCLISA(R)(isatuximab-irfc) treatment can appear as an IgG kappa and mask a complete response (CR). If this patient is receiving these therapies, this MICH assay interference can be removed by ordering test number [id number] Immunofixation, Daratumumab-Specific, Serum or [id number]- Immunofixation, Isatuximab-Specific, Serum and submitting a new sample for testing or by calling the lab to add this test to the current sample. Immunofixation shows IgM monoclonal protein with lambda light chain specificity. Performed By: #### G LULS #### Point of Care testing , Immunoglobulin A, Serum 326 mg/dL Normal 61-437 [facility] Comment on above: Performed By: #### G LULS #### Point of Care testing , Immunoglobulin G 773 mg/dL Normal 603-1613 [facility] Comment on above: Performed By: #### G LULS #### Point of Care testing , Immunoglobulin M, Serum 83 mg/dL Normal 15-143 [facility] Comment on above: Result Comment: Perf ormed at: - [facility] [id number] Construction Scheduler: Alex Tyler PhD, Phone: [phone] Performed By: #### G LULS #### Point of Care testing , Lipid Panelon 05-24-2024 Cholesterol [Mass/Vol] 111 mg/dL Low 140-200 [facility] Comment on above: Result Comment: Chol less than 200 mg/dl low risk Chol 201-239 mg/dl borderline risk Chol 240 mg/dl and greater high risk Performed By: #### G LULS #### Point of Care testing , Cholesterol in HDL [Mass/Vol] 37 mg/dL Normal 23-92 [facility] Comment on above: Result Comment: HDL CHOL ATP-III CLASSIFICATION Cardiovascular Risk HDL > or equal to 60 mg/dL LOW HDL < 40 mg/dL HIGH Performed By: #### G LULS #### Point of Care testing , Cholesterol.total/Janeen sterol in HDL [Mass ratio] 3.0 {ratio} Normal <5.0 [facility] Comment on above: Performed By: #### G LULS #### Point of Care testing , LDL Cholesterol,Calculated 59 mg/dL Normal 0-100 [facility] Comment on above: Result Comment: LDL ATP III CLASSIFICATION LDL less than 100 mg/dL Optimal LDL 100-129 mg/dL Near or above optimal LDL 130-159 mg/dL Borderline high LDL 160-189 mg/dL High LDL greater than 189 mg/dL Very high Performed By: #### G LULS #### Point of Care testing , Triglyceride w/Reflex 73 mg/dL Normal 0-149 [facility] Comment on above: Result Comment: TRIG ATP III CLASSIFICATION TRIG less than 150 mg/dL Normal TRIG 150-199 mg/dL Borderline high TRIG 200-500 mg/dL High TRIG greater than 500 mg/dL Very high Standard traceable to the Center for Disease Conrtrol and Prevention (CDC) test method. Performed By: #### G LULS #### Point of Care testing , VLDL CHOLESTEROL 14 mg/dL Normal [facility] Comment on above: Performed By: #### G LULS #### Point of Care testing , Lymphocytes Auto (Bld) [#/Vo l]Ordered By: Dread Toney on 05-24-2024 Lymphocytes (Bld) [#/Vol] Lymphocytes [#/volume] in Blood by Automated count 1.00-4.8 [facility] Lymphocytes/100 WBC Auto (Bl d)Ordered By: Dread Toney on 05-24-2024 Lymphocytes/100 WBC (Bld) Lymphocytes/100 leukocytes in Blood by Automated count . [facility] Magnesiumon 05-24-2024 Magnesium [Mass/Vol] 1.8 mg/dL Low 1.9-2.7 [facility] Comment on above: Performed By: #### G LULS #### Point of Care testing , Monocytes Auto (Bld) [#/Vol] Ordered By: Dread Toney on 05-24-2024 Monocytes (Bld) [#/Vol] Automated blood monocyte count 0.0-0.8 [facility] Monocytes/100 WBC Auto (Bld) Ordered By: Dread Toney on 05-24-2024 Monocytes/100 WBC (Bld) Automated monocyte % . [facility] Neutrophils Auto (Bld) [#/Vo l]Ordered By: Dread Toney on 05-24-2024 Neutrophils (Bld) [#/Vol] Neutrophils [#/volume] in Blood by Automated count 1.8-7.7 [facility] Neutrophils/100 WBC Auto (Bl d)Ordered By: Dread Toney on 05-24-2024 Neutrophils/100 WBC (Bld) Automated neutrophil % . [facility] No Panel InformationOrdered By: Prashant Garcia on 05-24-2024 Protein Electrophoresis M-Alejandro Comment: g/dL Not Observed [facility] Comment on above: SPE shows asymmetric al gamma. Suggest serum MICH and free lightchain analysis for further evaluation. Protein Electrophoresis Note Comment . [facility] Comment on above: Protein electrophore sis scan will follow via computer,mail, or student ministry pastor delivery.Performed at: [facility] [place] [id number] Director: Alex Tyler PhD, Phone: [phone] Nucleated erythrocytes [Pres ence] in Blood by Automated countOrdered By: Dread Toney on 05-24-2024 Nucleated RBC Auto Ql (Bld) Nucleated erythrocytes [Presence] in Blood by Automated count 0-0.5 [facility] Phosphate [Mass/volume] in S grady or PlasmaOrdered By: Dread Toney on 05-24-2024 Phosphate [Mass/Vol] Phosphate [Mass/volume] in Serum or Plasma 2.5-4.5 [facility] Phosphoruson 05-24-2024 Phosphate [Mass/Vol] 3.3 mg/dL Normal 2.5-4.5 [facility] Comment on above: Performed By: #### G LULS #### Point of Care testing , Protein Electrophoresis, Ser umon 05-24-2024 Albumin [Mass/Vol] 3.5 g/dL Normal 2.9-4.4 [facility] Comment on above: Performed By: #### G LULS #### Point of Care testing , Albumin/Globulin [Mass ratio] 1.3 {ratio} Normal 0.7-1.7 [facility] Comment on above: Performed By: #### G LULS #### Point of Care testing , Mclmt-0-Ocsqgiut 0.2 g/dL Normal 0.0-0.4 [facility] Comment on above: Performed By: #### G LULS #### Point of Care testing , Httfl-2-Hzvjsupu 0.9 g/dL Normal 0.4-1.0 [facility] Comment on above: Performed By: #### G LULS #### Point of Care testing , Beta Globulin 1.0 g/dL Normal 0.7-1.3 [facility] Comment on above: Performed By: #### G LULS #### Point of Care testing , Gamma Globulin 0.7 g/dL Normal 0.4-1.8 [facility] Comment on above: Performed By: #### G LULS #### Point of Care testing , Globulin (S) [Mass/Vol] 2.8 g/dL Normal 2.2-3.9 [facility] Comment on above: Performed By: #### G LULS #### Point of Care testing , M-Alejandro Comment: Normal Not Observed [facility] Comment on above: Result Comment: SPE shows asymmetrical gamma. Suggest serum MICH and free light chain analysis for further evaluation. Performed By: #### G LULS #### Point of Care testing , Protein [Mass/Vol] 6.3 g/dL Normal 6.0-8.5 [facility] Comment on above: Performed By: #### G LULS #### Point of Care testing , SPE-Note Comment Normal . [facility] Comment on above: Result Comment: Prot ein electrophoresis scan will follow via computer, mail, or student ministry pastor delivery. Performed at: [address] [id number] Construction Scheduler: Alex Tyler PhD, Phone: [phone] Performed By: #### G LULS #### Point of Care testing , RPR w/rfx to Quant TP Abson 05-24-2024 RPR, Rfx Quant RPR Non-Reactive Normal Non Reactive Th e [facility] Comment on above: Result Comment: Perf ormed at: CB - [facility] [address] [id number] Construction Scheduler: Alex Tyler PhD, Phone: [phone] PERFORMED BY: [address] [place] [address] PATHOLOGIST LABEL FOLDER JOSUE DAMON M.D. Performed By: #### G LULS #### Point of Care testing , Serum RPR testOrdered By: Gopal Garcia on 05-24-2024 Reagin Ab RPR Ql (S) Reagin Ab [Presence ] in Serum by RPR Non Reactive [facility] Comment on above: Performed at: CB - [facility] [address] [id number] Director: Alex Tyler PhD, Phone: [phone] Serum globulin measurement ( mass/volume)Ordered By: Prashant Garcia on 05-24-2024 Globulin (S) [Mass/Vol] Serum globulin measurement (mass/volume) 2.2-3.9 [facility] Serum or plasma albumin blanca urement (mass/volume)Ordered By: Prashant Garcia on 05-24-2024 Albumin [Mass/Vol] Albumin [Mass/volume ] in Serum or Plasma 2.9-4.4 [facility] Serum or plasma albumin/glob ulin mass ratioOrdered By: rPashant Garcia on 05-24-2024 Albumin/Globulin [Mass ratio] Serum or plasma albumin/globulin mass ratio 0.7-1.7 [facility] Serum or plasma alpha 1 glob ulin measurement by electrophoresis (mass/volume)Ordered By: Parshant Garcia on 05-24-2024 Alpha 1 globulin Elph [Mass/Vol] Serum or plasma alpha 1 globulin measurement by electrophoresis (mass/volume) 0.0-0.4 [facility] Serum or plasma alpha 2 glob ulin measurement by electrophoresis (mass/volume)Ordered By: Prashant Garcia on 05-24-2024 Alpha 2 globulin Elph [Mass/Vol] Serum or plasma alpha 2 globulin measurement by electrophoresis (mass/volume) 0.4-1.0 [facility] Serum or plasma beta globuli n measurement by electrophoresis (mass/volume)Ordered By: Prashant Garcia on 05-24-2024 Beta globulin Elph [Mass/Vol] Serum or plasma beta globulin measurement by electrophoresis (mass/volume) 0.7-1.3 [facility] Serum or plasma gamma globul in measurement by electrophoresis (mass/volume)Ordered By: Prashant Garcia on 05-24-2024 Gamma globulin Elph [Mass/Vol] Serum or plasma gamma globulin measurement by electrophoresis (mass/volume) 0.4-1.8 [facility] Serum or plasma total choles terol/high density lipoprotein (HDL) cholesterol mass ratOrdered By: Dread Toney on 05-24-2024 Cholesterol.total/Janeen sterol in HDL [Mass ratio] Serum or plasma total cholesterol/high density lipoprotein (HDL) cholesterol mass rat <5.0 [facility] Serum total protein measurem entOrdered By: Prashant Garcia on 05-24-2024 Protein [Mass/Vol] Protein [Mass/volume ] in Serum or Plasma 6.0-8.5 [facility] Thyroid Stimulating Hormoneo n 05-24-2024 TSH Qn 2.29 m[IU]/L Normal 0.45-5.33 [facility] Comment on above: Result Comment: PERF ORMED BY: [facility] [address] [place] [address] PATHOLOGIST LABEL FOLDER JOSUE DAMON M.D. Performed By: #### G LUMARSHA #### Point of Care testing , Thyrotropin [Units/volume] i n Serum or PlasmaOrdered By: Prashant Garcia on 05-24-2024 TSH Qn Thyrotropin [Units/volume] in Serum or Plasma 0.45-5.33 [facility] Triglyceride [Mass/volume] i n Serum or PlasmaOrdered By: Dread Toney on 05-24-2024 Triglyceride [Mass/Vol] Triglyceride [Mass/volume] in Serum or Plasma 0-149 [facility] Comment on above: TRIG ATP III CLASSIF ICATIONTRIG less than 150 mg/dL NormalTRIG 150-199 mg/dL Borderline highTRIG 200-500 mg/dL High TRIG greater than 500 mg/dL Very highStandard traceable to the Center for Disease Conrtrol and Prevention (CDC) test method. Vitamin B12on 05-24-2024 Cobalamin (Vitamin B12) [Mass/Vol] 298 pg/mL Normal 180-914 [facility] Comment on above: Performed By: #### G LULS #### Point of Care testing , Vitamin B12 ser/plasOrdered By: Prashant Garcia on 05-24-2024 Cobalamin (Vitamin B12) [Mass/Vol] Vitamin B12 ser/plas 180-914 [facility] WBC Auto (Bld) [#/Vol]Ordere d By: Dread Toney on 05-24-2024 WBC (Bld) [#/Vol] Leukocytes [#/volume ] in Blood by Automated count 4.1-10.5 [facility] Alanine aminotransferase [En zymatic activity/volume] in Serum or PlasmaOrdered By: Fredo Hoffmann on 05-23-2024 ALT [Catalytic activity/Vol] Alanine aminotransferase [Enzymatic activity/volume] in Serum or Plasma 752 [facility] Albumin [Mass/volume] in Ser um or Plasma by Bromocresol green (BCG) dye binding methoOrdered By: Fredo Hoffmann on 05-23-2024 Albumin BCG dye [Mass/Vol] Albumin [Mass/volume] in Serum or Plasma by Bromocresol green (BCG) dye binding metho 3.5-5.7 [facility] Alkaline phosphatase [Enzyma tic activity/volume] in Serum or PlasmaOrdered By: Fredo Hoffmann on 05-23-2024 ALP [Catalytic activity/Vol] Alkaline phosphatase [Enzymatic activity/volume] in Serum or Plasma 34-104 [facility] Appearance of UrineOrdered B y: Elenita Munoz on 05-23-2024 Appearance (U) Urine appearance Clear [facility] Aspartate aminotransferase [ Enzymatic activity/volume] in Serum or PlasmaOrdered By: Fredo Hoffmann on 05-23-2024 AST [Catalytic activity/Vol] Aspartate aminotransferase [Enzymatic activity/volume] in Serum or Plasma 13-39 [facility] Bacteria [Presence] in Urine by AutomatedOrdered By: Elenita Munoz on 05-23-2024 Bacteria Auto Ql (U) Bacteria [Presence] in Urine by Automated None Seen [facility] Basophils Auto (Bld) [#/Vol] Ordered By: Fredo Hoffmann on 05-23-2024 Basophils (Bld) [#/Vol] Automated basoph il count 0.0-0.2 [facility] Basophils/100 WBC Auto (Bld) Ordered By: Fredo Hoffmann on 05-23-2024 Basophils/100 WBC (Bld) Automated basophil % . [facility] Bilirubin Test strip Ql (U)O rdered By: Elenita Munoz on 05-23-2024 Bilirubin Ql (U) Bilirubin.total [Presence] in Urine by Test strip Negative [facility] Bilirubin.total [Mass/volume ] in Serum or PlasmaOrdered By: Fredo Hoffmann on 05-23-2024 Bilirubin [Mass/Vol] Bilirubin.total [Mass/volume] in Serum or Plasma High 0.3-1.0 [facility] CT head/brain wo conon 05-23 CT head/brain wo con [facility] [address] CT Scan Report Signed Patient: Des Jacob MR#: [id number] : 1940 Acct:[id number] Age/Sex: 83 / M ADM Date: 05/23/24 Loc: ER Room: Type: [facility] ER Attending Dr: Copies to: Elenita Munoz DO Ordering Provider: Elenita Munoz DO Date of Service: 05/23/24 CT/CT head/brain wo con: falls CT BRAIN WITHOUT CONTRAST: CLINICAL HISTORY: Fell, weakness, abrasion right side of the face COMPARISON: 05/18/2024 TECHNIQUE: Contiguous axial unenhanced images were obtained through the brain. This CT exam was performed using one or more following dose reduction techniques: Automated exposure control, adjustment of the mA and/or kV according to patient size, or use of iterative reconstruction technique. FINDINGS: There is no evidence of midline shift, intra or extra-axial fluid collection, hemorrhage or CT evidence of large vascular stroke. Rnze-xz-afmffose central involutional changes and chronic small vessel ischemic disease. Intracranial vascular calcifications. Visualized intraorbital contents appear unremarkable. Visualized paranasal sinuses are clear. Right frontal scalp soft tissue swelling. No calvarial fracture. CT/CT head/brain wo con IMPRESSION: NO ACUTE INTRACRANIAL ABNORMALITY. MILD/MODERATE CHRONIC MICROVASCULAR CHANGES AND CENTRAL INVOLUTIONAL CHANGE. Impression dictated by: Romero Guerin M.D.05/23/2024 8:58 AM Dictation Location: [place] [address] Transcribed By: [facility] 05/23/24857 Dictated By: Romero Guerin MD 05/23/2455 Signed By: 05/23/24857 Normal [facility] Calcium [Mass/volume] in Ser um or PlasmaOrdered By: Fredo Hoffmann on 05-23-2024 Calcium [Mass/Vol] Calcium [Mass/volume ] in Serum or Plasma 8.6-10.3 [facility] Carbon dioxide, total [Moles /volume] in Serum or PlasmaOrdered By: Fredo Hoffmann on 05-23-2024 CO2 [Moles/Vol] Carbon dioxide, tota l [Moles/volume] in Serum or Plasma 21.0-31.0 [facility] Chloride [Moles/volume] in S grady or PlasmaOrdered By: Fredo Hoffmann on 05-23-2024 Chloride [Moles/Vol] Chloride [Moles/volume] in Serum or Plasma 98-107 [facility] Color Auto (U)Ordered By: Jc Munoz on 05-23-2024 Color (U) Color of Urine by Auto Yellow [facility] Complete Blood Count Auto Di ffon 05-23-2024 Basophils (Bld) [#/Vol] 0.0 10*3/uL Normal 0.0-0.2 [facility] Comment on above: Result Comment: PERF ORMED BY: [facility] [address] [place] [address] PATHOLOGIST LABEL FOLDER JOSUE DAMON M.D. Performed By: #### G LULS #### Point of Care testing , Basophils/100 WBC (Bld) 0.4 % Normal . T [facility] Comment on above: Performed By: #### G LULS #### Point of Care testing , Eosinophils (Bld) [#/Vol] 0.2 10*3/uL Normal 0.0-0.45 [facility] Comment on above: Performed By: #### G LULS #### Point of Care testing , Eosinophils/100 WBC (Bld) 2.4 % Normal . [facility] [facility] Comment on above: Performed By: #### G LULS #### Point of Care testing , Erythrocyte distribution width (RBC) [Ratio] 14.2 % Normal 12.0-14.8 [facility] Comment on above: Performed By: #### G LULS #### Point of Care testing , Hematocrit (Bld) [Volume fraction] 38.0 % Low 38.8-50.0 [facility] Comment on above: Performed By: #### G LULS #### Point of Care testing , Hemoglobin (Bld) [Mass/Vol] 12.8 g/dL Low 13.0-17.0 [facility] Comment on above: Performed By: #### G LULS #### Point of Care testing , Lymphocytes (Bld) [#/Vol] 1.3 10*3/uL Normal 1.00-4.8 [facility] Comment on above: Performed By: #### G LULS #### Point of Care testing , Lymphocytes/100 WBC (Bld) 16.5 % Normal . [facility] Comment on above: Performed By: #### G LULS #### Point of Care testing , MCH (RBC) [Entitic mass] 31.1 pg Normal 27.5-35.2 [facility] Comment on above: Performed By: #### G LULS #### Point of Care testing , MCV (RBC) [Entitic vol] 92.2 fL Normal 83.5-101 T [facility] Comment on above: Performed By: #### G LULS #### Point of Care testing , Mean Corpuscular HGB Conc 33.7 g/dL Normal 32.5-35.6 [facility] Comment on above: Performed By: #### G LULS #### Point of Care testing , Monocytes (Bld) [#/Vol] 0.8 10*3/uL Normal 0.0-0.8 [facility] Comment on above: Performed By: #### G LULS #### Point of Care testing , Monocytes/100 WBC (Bld) 9.4 % Normal . T [facility] Comment on above: Performed By: #### G LULS #### Point of Care testing , Neutrophils (Bld) [#/Vol] 5.7 10*3/uL Normal 1.8-7.7 [facility] Comment on above: Performed By: #### G LULS #### Point of Care testing , Neutrophils/100 WBC (Bld) 71.3 % Normal . [facility] Comment on above: Performed By: #### G LULS #### Point of Care testing , NRBC% 0.0 /100{WBC} Normal 0-0.5 [facility] Comment on above: Performed By: #### G LULS #### Point of Care testing , Platelet mean volume (Bld) [Entitic vol] 9.7 fL Normal 6.6-10.1 [facility] Comment on above: Performed By: #### G LULS #### Point of Care testing , Platelets (Bld) [#/Vol] 172 10*3/uL Normal 150-450 [facility] Comment on above: Performed By: #### G LULS #### Point of Care testing , RBC (Bld) [#/Vol] 4.12 10*6/uL Normal 3.90-5.60 [facility] Comment on above: Performed By: #### G LULS #### Point of Care testing , WBC (Bld) [#/Vol] 8.0 10*3/uL Normal 4.1-10.5 [facility] Comment on above: Performed By: #### G LULS #### Point of Care testing , Comprehensive Metabolic Pane stephanie 05-23-2024 Albumin [Mass/Vol] 3.8 g/dL Normal 3.5-5.7 [facility] Comment on above: Performed By: #### G LULS #### Point of Care testing , Albumin/Globulin [Mass ratio] 1.4 {ratio} Normal [facility] Comment on above: Performed By: #### G ANETTELS #### Point of Care testing , ALP [Catalytic activity/Vol] 97 U/L Normal 34-104 [facility] Comment on above: Performed By: #### G LULS #### Point of Care testing , ALT [Catalytic activity/Vol] 12 U/L Normal 7-52 [facility] Comment on above: Performed By: #### G LULS #### Point of Care testing , Anion gap [Moles/Vol] 14.6 mmol/L Normal 6.0-15.0 Th e [facility] Comment on above: Performed By: #### G LULS #### Point of Care testing , AST [Catalytic activity/Vol] 19 U/L Normal 13-39 [facility] Comment on above: Performed By: #### G ANETTELS #### Point of Care testing , Bilirubin [Mass/Vol] 1.2 mg/dL High 0.3-1.0 [facility] Comment on above: Performed By: #### G ANETTELS #### Point of Care testing , Calcium [Mass/Vol] 8.9 mg/dL Normal 8.6-10.3 [facility] Comment on above: Performed By: #### G LULS #### Point of Care testing , Chloride [Moles/Vol] 106 mmol/L Normal 98-107 [facility] Comment on above: Performed By: #### G LULS #### Point of Care testing , CO2 [Moles/Vol] 22.5 mmol/L Normal 21.0-31.0 [facility] Comment on above: Performed By: #### G LULS #### Point of Care testing , Creatinine [Mass/Vol] 1.17 mg/dL Normal 0.70-1.30 [facility] Comment on above: Performed By: #### G LULS #### Point of Care testing , Creatinine Clr Calc Pharmacy 52.16 Normal [facility] Comment on above: Performed By: #### G LULS #### Point of Care testing , GFR/1.73 sq M.predicted MDRD (S/P/Bld) [Vol rate/Area] mL/min/{1.73_m2} Normal [facility] Comment on above: Performed By: #### G LULS #### Point of Care testing , Globulin (S) [Mass/Vol] 2.8 g/dL Normal T he [facility] Comment on above: Performed By: #### G LULS #### Point of Care testing , Glucose [Mass/Vol] 156 mg/dL High 70-100 [facility] Comment on above: Result Comment: [facility][note 3] Glucose Reference Range is dependent on time and content of last meal. Glucose of more than 200 mg/dL in a nonstressed, ambulatory subject supports the diagnosis of Diabetes Mellitus. ADA recommended reference range Performed By: #### G LULS #### Point of Care testing , Potassium [Moles/Vol] 4.1 mmol/L Normal 3.5-5.1 [facility] Comment on above: Performed By: #### G LULS #### Point of Care testing , Protein [Mass/Vol] 6.6 g/dL Normal 6.4-8.9 [facility] Comment on above: Performed By: #### G LULS #### Point of Care testing , Sodium [Moles/Vol] 139 mmol/L Normal 136-145 [facility] Comment on above: Performed By: #### G LULS #### Point of Care testing , Urea nitrogen [Mass/Vol] 30 mg/dL High 7-25 [facility] Comment on above: Performed By: #### G LULS #### Point of Care testing , Creatine Kinaseon 05-23-2024 CK [Catalytic activity/Vol] 114 U/L Normal 30-223 [facility] Comment on above: Performed By: #### G LULS #### Point of Care testing , Creatine kinase [Enzymatic a ctivity/volume] in Serum or PlasmaOrdered By: Fredo Hoffmann on 05-23-2024 CK [Catalytic activity/Vol] Creatine kinase [Enzymatic activity/volume] in Serum or Plasma 30-223 [facility] Creatinine [Mass/volume] in Serum or PlasmaOrdered By: Fredo Hoffmann on 05-23-2024 Creatinine [Mass/Vol] Creatinine [Mass/volume] in Serum or Plasma 0.70-1.30 [facility] Dipstick and Microscopicon 0 05-23-2024 Appearance (U) Clear Normal Clear [facility] Comment on above: Order Comment: Name Collection Type:: Clean-Voided Midstream Performed By: #### C BCNO, BMP, MG #### [address] Bacteria,Urine None Seen Normal None Seen [facility] Comment on above: Order Comment: Name Collection Type:: Clean-Voided Midstream Performed By: #### C BCNO, BMP, MG #### [address] Bilirubin,Urine Negative Normal Negative [facility] Comment on above: Order Comment: Name Collection Type:: Clean-Voided Midstream Performed By: #### C BCNO, BMP, MG #### [address] Cellular Casts,Urine 1-2 High None Seen [facility] Comment on above: Order Comment: Name Collection Type:: Clean-Voided Midstream Performed By: #### C BCNO, BMP, MG #### [address] Color (U) Yellow Normal Yellow [facility] Comment on above: Order Comment: Name Collection Type:: Clean-Voided Midstream Performed By: #### C BCNO, BMP, MG #### [address] Glucose Ql (U) 30 mg/dL High Normal [facility] Comment on above: Order Comment: Name Collection Type:: Clean-Voided Midstream Performed By: #### C BCNO, BMP, MG #### [address] Hyaline Casts,Urine 0-8 Normal 0-8 [facility] Comment on above: Order Comment: Name Collection Type:: Clean-Voided Midstream Performed By: #### C BCNO, BMP, MG #### [address] Ketones Ql (U) Trace High Negative [facility] Comment on above: Order Comment: Name Collection Type:: Clean-Voided Midstream Performed By: #### C BCNO, BMP, MG #### [address] Leukocyte esterase Test strip Ql (U) Negative Normal Negative [facility] Comment on above: Order Comment: Name Collection Type:: Clean-Voided Midstream Performed By: #### C BCNO, BMP, MG #### [address] Mucus,Urine Rare Normal [facility] Comment on above: Order Comment: Name Collection Type:: Clean-Voided Midstream Result Comment: PERF ORMED BY: [place] [address] PATHOLOGIST LABEL FOLDER JOSUE DAMON M.D. Performed By: #### C BCNO, BMP, MG #### [address] Nitrite,Urine Negative Normal Negative [facility] Comment on above: Order Comment: Name Collection Type:: Clean-Voided Midstream Performed By: #### C BCNO, BMP, MG #### [address] Occult Blood,Urine Negative Normal Negative [facility] Comment on above: Order Comment: Name Collection Type:: Clean-Voided Midstream Result Comment: PERF ORMED BY: [place] [address] PATHOLOGIST LABEL FOLDER JOSUE DAMON M.D. Performed By: #### C BCNO, BMP, MG #### [place] [address] [place] pH (U) 5.5 [pH] Normal 5.0-9.0 [facility] Comment on above: Order Comment: Name Collection Type:: Clean-Voided Midstream Performed By: #### C BCNO, BMP, MG #### [address] Protein (U) [Mass/Vol] 70 mg/dL High Negative Th e [facility] Comment on above: Order Comment: Name Collection Type:: Clean-Voided Midstream Performed By: #### C BCNO, BMP, MG #### [address] RBC,Urine 1-2 Normal 0-4 [facility] Comment on above: Order Comment: Name Collection Type:: Clean-Voided Midstream Performed By: #### C BCNO, BMP, MG #### [address] Specificy [place],Urine 1.029 Normal 1.001-1.030 [facility] Comment on above: Order Comment: Name Collection Type:: Clean-Voided Midstream Performed By: #### C BCNO, BMP, MG #### [address] Urobilinogen,Urine 2 mg/dL High Normal [facility] Comment on above: Order Comment: Name Collection Type:: Clean-Voided Midstream Performed By: #### C BCNO, BMP, MG #### [address] WBC,Urine 1-2 Normal 0-4 [facility] Comment on above: Order Comment: Name Collection Type:: Clean-Voided Midstream Performed By: #### C BCNO, BMP, MG #### [address] ECG 12 lead ECGon 05-23-2024 ECG 12 lead ECG [facility] Main [place] [address] [place] [address] Electrocardiograph Report Signed Patient: Des Jacob MR#: [id number] : 1940 Acct:[id number] Age/Sex: 83 / M ADM Date: 05/23/24 Loc: Room: [address] [place] [address] Type: ADM INOo Attending Dr: Dread Toney DO Ordering Provider: Elenita Munoz DO Date of Service: 05/23/2403/07/514 ECG/ECG 12 lead ECG: Fall Copies to: Test Reason : Blood Pressure : 183/82 mmHG Vent. Rate : 69 BPM Atrial Rate : 69 BPM P-R Int : 156 ms QRS Dur : 80 ms QT Int : 392 ms P-R-T Axes : 50 21 80 degrees QTcB Int : 420 ms Normal sinus rhythm Normal ECG When compared with ECG of 18-May-2024 17:14, No significant change was found Confirmed by ELENITA MUNOZ DO ([id number]) on 05/23/2024 4:21:24 PM Referred By: Electronically Signed By: ELENITA MUNOZ DO Transcribed By: MUS Signed By Elenita Munoz DO 05/23 1621 Normal [facility] Eosinophils Auto (Bld) [#/Vo l]Ordered By: Fredo Hoffmann on 05-23-2024 Eosinophils (Bld) [#/Vol] Automated eosinophil count 0.0-0.45 [facility] Eosinophils/100 WBC Auto (Bl d)Ordered By: Fredo Hoffmann on 05-23-2024 Eosinophils/100 WBC (Bld) Automated eosinophil % . [facility] Epithelial cells.squamous [# /area] in Urine sediment by Automated countOrdered By: Elenita Munoz on 05-23-2024 Epithelial cells.squamous Auto (Urine sed) [#/Area] Epithelial cells.squamous [#/area] in Urine sediment by Automated count [facility] Erythrocyte distribution wid th Auto (RBC) [Ratio]Ordered By: Fredo Hoffmann on 05-23-2024 Erythrocyte distribution width (RBC) [Ratio] Erythrocyte distribution width [Ratio] by Automated count 12.0-14.8 [facility] Erythrocytes [#/area] in Uri ne sediment by Automated countOrdered By: Elenita Munoz on 05-23-2024 RBC Auto (Urine sed) [#/Area] Erythrocytes [#/area] in Urine sediment by Automated count 0-4 [facility] Folate [Mass/volume] in Seru m or PlasmaOrdered By: Dread Toney on 05-23-2024 Folate [Mass/Vol] Folate [Mass/volume] in Serum or Plasma >5.9 [facility] Comment on above: Folate reference ran ge: >5.9 ng/mlThe WHO technical consultation on folate and vitamin [id number] has determined that folate concentrations lessthan 4 ng/ml are considered deficient. Globulin Calc (S) [Mass/Vol] Ordered By: Fredo Hoffmann on 05-23-2024 Globulin (S) [Mass/Vol] Serum globulin measurement by calculation (mass/volume) [facility] Glucose [Mass/volume] in Ser um or PlasmaOrdered By: Fredo Hoffmann on 05-23-2024 Glucose [Mass/Vol] Glucose [Mass/volume ] in Serum or Plasma High 70-100 [facility] Comment on above: ADA recommended refe rence rangeRandom Glucose Reference Range is dependent on time and content of last meal. Glucose of more than 200 mg/dL in a nonstressed, ambulatory subject supports the diagnosis of Diabetes Mellitus. Glucose [Mass/volume] in Uri ne by Test stripOrdered By: Elenita Munoz on 05-23-2024 Glucose Test strip (U) [Mass/Vol] Glucose [Mass/volume] in Urine by Test strip High Normal [facility] Hematocrit Auto (Bld) [Volum e fraction]Ordered By: Fredo Hoffmann on 05-23-2024 Hematocrit (Bld) [Volume fraction] Hematocrit [Volume Fraction] of Blood by Automated count Low 38.8-50.0 [facility] Hemoglobin Test strip Ql (U) Ordered By: Elenita Munoz on 05-23-2024 Hemoglobin Ql (U) Hemoglobin [Presence ] in Urine by Test strip Negative [facility] Hemoglobin [Mass/volume] in BloodOrdered By: Fredo Hoffmann on 05-23-2024 Hemoglobin (Bld) [Mass/Vol] Hemoglobin [Mass/volume] in Blood Low 13.0-17.0 [facility] Hyaline casts [#/area] in Ur ine sediment by Automated countOrdered By: Elenita Munoz on 05-23-2024 Hyaline casts Auto (Urine sed) [#/Area] Hyaline casts [#/area] in Urine sediment by Automated count 0-8 [facility] Ketones Test strip Ql (U)Ord ered By: Elenita Munoz on 05-23-2024 Ketones Ql (U) Ketones [Presence] i n Urine by Test strip High Negative [facility] Leukocyte esterase [Presence ] in Urine by Test stripOrdered By: Elenita Munoz on 05-23-2024 Leukocyte esterase Test strip Ql (U) Leukocyte esterase [Presence] in Urine by Test strip Negative [facility] Leukocytes [#/area] in Urine sediment by Automated countOrdered By: Elenita Munoz on 05-23-2024 WBC Auto (Urine sed) [#/Area] Leukocytes [#/area] in Urine sediment by Automated count 0-4 [facility] Leukocytes [#/volume] correc marimar for nucleated erythrocytes in Blood by Automated counOrdered By: Fredo Hoffmann on 05-23-2024 WBC corrected for nucl RBC Auto (Bld) [#/Vol] Leukocytes [#/volume] corrected for nucleated erythrocytes in Blood by Automated coun 4.1-10.5 [facility] Lymphocytes Auto (Bld) [#/Vo l]Ordered By: Fredo Hoffmann on 05-23-2024 Lymphocytes (Bld) [#/Vol] Lymphocytes [#/volume] in Blood by Automated count 1.00-4.8 [facility] Lymphocytes/100 WBC Auto (Bl d)Ordered By: Fredo Hoffmann on 05-23-2024 Lymphocytes/100 WBC (Bld) Lymphocytes/100 leukocytes in Blood by Automated count . [facility] MCH Auto (RBC) [Entitic mass ]Ordered By: Fredo Hoffmann on 05-23-2024 MCH (RBC) [Entitic mass] MCH [Entitic mass] by Automated count 27.5-35.2 [facility] MCHC Auto (RBC) [Mass/Vol]Or dered By: Fredo Hoffamnn on 05-23-2024 MCHC (RBC) [Mass/Vol] MCHC [Mass/volume] by Automated count 32.5-35.6 [facility] MCV Auto (RBC) [Entitic vol] Ordered By: Fredo Hoffmann on 05-23-2024 MCV (RBC) [Entitic vol] MCV [Entitic vol ume] by Automated count 83.5-101 [facility] Magnesiumon 05-23-2024 Magnesium [Mass/Vol] 1.7 mg/dL Low 1.9-2.7 [facility] Comment on above: Result Comment: PERF ORMED BY: [facility] [address] [place] [address] PATHOLOGIST LABEL FOLDER JOSUE DAMON M.D. Performed By: #### G LUMARSHA #### Point of Care testing , Magnesium [Mass/volume] in S grady or PlasmaOrdered By: Fredo Hoffmann on 05-23-2024 Magnesium [Mass/Vol] Magnesium [Mass/volume] in Serum or Plasma Low 1.9-2.7 [facility] Mixed cellular casts [#/area ] in Urine by Computer assisted methodOrdered By: Elenita Munoz on 05-23-2024 Mixed cellular casts Computer assisted (U) [#/Area] Mixed cellular casts [#/area] in Urine by Computer assisted method High None Seen [facility] Monocytes Auto (Bld) [#/Vol] Ordered By: Fredo Hoffmann on 05-23-2024 Monocytes (Bld) [#/Vol] Automated blood monocyte count 0.0-0.8 [facility] Monocytes/100 WBC Auto (Bld) Ordered By: Fredo Hoffmann on 05-23-2024 Monocytes/100 WBC (Bld) Automated monocyte % . [facility] Mucus [Presence] in Urine by AutomatedOrdered By: Elenita Munoz on 05-23-2024 Mucus Auto Ql (U) Mucus [Presence] in Urine by Automated [facility] Neutrophils Auto (Bld) [#/Vo l]Ordered By: Fredo Hoffmann on 05-23-2024 Neutrophils (Bld) [#/Vol] Neutrophils [#/volume] in Blood by Automated count 1.8-7.7 [facility] Neutrophils/100 WBC Auto (Bl d)Ordered By: Fredo Hoffmann on 05-23-2024 Neutrophils/100 WBC (Bld) Automated neutrophil % . [facility] Nitrite Test strip Ql (U)Ord ered By: Elenita Munoz on 05-23-2024 Nitrite Ql (U) Nitrite [Presence] i n Urine by Test strip Negative [facility] No Panel InformationOrdered By: Fredo Hoffmann on 05-23-2024 Estimated GFR (CKD-EPI) > 60.0 mL/Min [facility] Creatinine Clearance (Chem 52.16 [facility] Nucleated erythrocytes [Pres ence] in Blood by Automated countOrdered By: Fredo Hoffmann on 05-23-2024 Nucleated RBC Auto Ql (Bld) Nucleated erythrocytes [Presence] in Blood by Automated count 0-0.5 [facility] Platelet mean volume Auto (B ld) [Entitic vol]Ordered By: Fredo Hoffmann on 05-23-2024 Platelet mean volume (Bld) [Entitic vol] Platelet mean volume [Entitic volume] in Blood by Automated count 6.6-10.1 [facility] Platelets Auto (Bld) [#/Vol] Ordered By: Fredo Hoffmann on 05-23-2024 Platelets (Bld) [#/Vol] Platelets [#/vol ume] in Blood by Automated count 150-450 [facility] Potassium [Moles/volume] in Serum or PlasmaOrdered By: Fredo Hoffmann on 05-23-2024 Potassium [Moles/Vol] Potassium [Moles/volume] in Serum or Plasma 3.5-5.1 [facility] Protein Test strip (U) [Mass /Vol]Ordered By: Elenita Munoz on 05-23-2024 Protein (U) [Mass/Vol] Protein [Mass/vol ume] in Urine by Test strip High Negative [facility] Protein [Mass/volume] in Ser um or PlasmaOrdered By: Fredo Hoffmann on 05-23-2024 Protein [Mass/Vol] Protein [Mass/volume ] in Serum or Plasma 6.4-8.9 [facility] RBC Auto (Bld) [#/Vol]Ordere d By: Fredo Hoffmann on 05-23-2024 RBC (Bld) [#/Vol] Erythrocytes [#/volume] in Blood by Automated count 3.90-5.60 [facility] Serum or plasma albumin/glob ulin mass ratioOrdered By: Fredo Hoffmann on 05-23-2024 Albumin/Globulin [Mass ratio] Serum or plasma albumin/globulin mass ratio [facility] Serum or plasma anion gap de terminationOrdered By: Fredo Hoffmann on 05-23-2024 Anion gap [Moles/Vol] Serum or plasma an ion gap determination 6.0-15.0 [facility] Sodium [Moles/volume] in Ser um or PlasmaOrdered By: Fredo Hoffmann on 05-23-2024 Sodium [Moles/Vol] Sodium [Moles/volume ] in Serum or Plasma 136-145 [facility] Specific gravity Test strip (U) [Rel density]Ordered By: Elenita Munoz on 05-23-2024 Specific gravity (U) [Rel density] Specific gravity of Urine by Test strip 1.001-1.030 [facility] Thyroid Stimulating Hormoneo n 05-23-2024 TSH Qn 2.77 m[IU]/L Normal 0.45-5.33 [facility] Comment on above: Order Comment: Comme nt add on Performed By: #### C BCNO, BMP, MG #### [facility] [address] Thyrotropin [Units/volume] i n Serum or PlasmaOrdered By: Dread Toney on 05-23-2024 TSH Qn Thyrotropin [Units/volume] in Serum or Plasma 0.45-5.33 [facility] Troponin I High Sensitivityo n 05-23-2024 Troponin I High Sensitivity 8 Normal 0-20 [facility] Comment on above: Result Comment: The Troponin units of report have been changed to meet the Chest Pain Accreditation requirement, element EC5.M1l2. Troponin units are changed from pg/ml to ng/L. Also, the decimal is removed and results are in whole numbers. PERFORMED BY: [facility] [address] [place] [address] PATHOLOGIST LABEL FOLDER JOSUE DAMON M.D. Performed By: #### G LUMARSHA #### Point of Care testing , Troponin I.cardiac [Mass/vol ume] in Serum or Plasma by Detection limit <= 0.01 ng/Ordered By: Fredo Hoffmann on 05-23-2024 Troponin I.cardiac DL <= 0.01 ng/mL [Mass/Vol] Troponin I.cardiac [Mass/volume] in Serum or Plasma by Detection limit <= 0.01 ng/ 0-20 [facility] Comment on above: The Troponin units o f report have been changed to meet the Chest Pain Accreditation requirement, element EC5.M1l2. Troponin units are changed from pg/ml to ng/L. Also, the decimal is removed and results are in whole numbers. Urea nitrogen [Mass/volume] in Serum or PlasmaOrdered By: Fredo Hoffmann on 05-23-2024 Urea nitrogen [Mass/Vol] Urea nitrogen [Mass/volume] in Serum or Plasma High 7-25 [facility] Urobilinogen Test strip (U) [Mass/Vol]Ordered By: Elenita Munoz on 05-23-2024 Urobilinogen (U) [Mass/Vol] Urobilinogen [Mass/volume] in Urine by Test strip High Normal [facility] Vit. B12/Folate Profileon Cobalamin (Vitamin B12) [Mass/Vol] 263 pg/mL Normal 180-914 [facility] Comment on above: Order Comment: Comme nt add on Performed By: #### C BCNO, BMP, MG #### [address] Folate 11.0 ng/mL Normal >5.9 [facility] Comment on above: Order Comment: Comme nt add on Result Comment: Cheryl te reference range: >5.9 ng/ml The WHO technical consultation on folate and vitamin b12 deficiencies has determined that folate concentrations less than 4 ng/ml are considered deficient. Performed By: #### C BCNO, BMP, MG #### [facility] [address] Vitamin B12 ser/plasOrdered By: Dread Toney on 05-23-2024 Cobalamin (Vitamin B12) [Mass/Vol] Vitamin B12 ser/plas 180-914 [facility] Vitamin D 25 Hydroxy Totalon 05-23-2024 Vitamin D 25 Hydroxy Total 20.7 ng/mL Low 30-100 [facility] Comment on above: Order Comment: Comme nt add on Result Comment: SONI MIN D STATUS 25(OH)VITAMIN D RANGE (ng/mL) Deficient <20 Insufficient 20 to <30 Sufficient 30 to 100 Reference: Tammie MF,Osei NC, Silvestre KEARNS, et al. Evaluation,treatment, and prevention of vitamin D deficiency; an Endocrine Society clinical practice guideline. JCEM. 2010; 96(7):1911-30. PERFORMED BY: [place] [address] PATHOLOGIST LABEL FOLDER JOSUE DAMON M.D. Performed By: #### G LULS #### Point of Care testing , Vitamin D+Metabolites [Mass/ volume] in Serum or PlasmaOrdered By: Dread Toney on 05-23-2024 Vitamin D+Metabolites [Mass/Vol] Vitamin D+Metabolites [Mass/volume] in Serum or Plasma Low 30-100 [facility] Comment on above: VITAMIN D STATUS 25( OH)VITAMIN D RANGE (ng/mL) Deficient <20 Insufficient 20 to <30Sufficient 30 to 100Reference: Tammie MF,Osei NC, Silvestre KEARNS, et al. Evaluation,treatment, and prevention of vitamin D deficiency; an Endocrine Society clinical practice guideline. JCEM. 2010; 96(7):1911-30. WBC Auto (Bld) [#/Vol]Ordere d By: Fredo Hoffmann on 05-23-2024 WBC (Bld) [#/Vol] Leukocytes [#/volume ] in Blood by Automated count 4.1-10.5 [facility] X-ray reportOrdered By: Gilbert Clarke on 05-23-2024 Study report [facility] [address] [place] [address] XRay Report Signed Patient: Des Jacob MR#: [id number] : 1940 Acct:[id number] Age/Sex: 83 / M ADM Date: 5 Loc: ER Room: Type: [facility] ER Attending Dr: Copies to: DO Fredo Torrez Jr, MD~ Ordering Provider: Fredo Hoffmann Jr, MD Date of Service: 05/23/24 XR/XR chest 1V portable: SYNCOPAL EPISODE SINGLE VIEW CHEST CLINICAL HISTORY: Shortness of breath and syncope status post multiple falls for 2 weeks. COMPARISON: Chest 05/18/2024 FINDINGS: Heart normal in size. Lungs are clear. No free air. XR/XR chest 1V portable IMPRESSION: NO ACUTE FINDINGS Impression dictated by: Shamar Clarke Jr., D.O.05/23/2024 9:03 AM Dictation Location: [place] [address] Transcribed By: [facility] 05/23/24902 Dictated By: Shamar Clarke Jr, DO 05/23/24900 Signed By: 05/23/24 09 [facility] XR chest 1V portableon 05-23 XR chest 1V portable [facility] [address] [place] [address] XRay Report Signed Patient: Des Jacob MR#: [id number] : 1940 Acct:[id number] Age/Sex: 83 / M ADM Date: 05/23/24 Loc: ER Room: Type: [facility] ER Attending Dr: Copies to: DO Fredo Torrez Jr, MD Ordering Provider: Fredo Hoffmann Jr, MD Date of Service: 05/23/24 XR/XR chest 1V portable: SYNCOPAL EPISODE SINGLE VIEW CHEST CLINICAL HISTORY: Shortness of breath and syncope status post multiple falls for 2 weeks. COMPARISON: Chest 05/18/2024 FINDINGS: Heart normal in size. Lungs are clear. No free air. XR/XR chest 1V portable IMPRESSION: NO ACUTE FINDINGS Impression dictated by: Shamar Clarke Jr., D.O.05/23/2024 9:03 AM Dictation Location: [facility] Transcribed By: [facility] 05/23/24902 Dictated By: Shamar Clarke Jr, DO 05/23/24900 Signed By: 05/23/24902 Normal [facility] pH Test strip (U)Ordered By: Elenita Munoz on 05-23-2024 pH (U) pH of Urine by Test strip 5.0-9.0 [facility] Alanine aminotransferase [En zymatic activity/volume] in Serum or PlasmaOrdered By: Floyd Moseley on 05-18-2024 ALT [Catalytic activity/Vol] Alanine aminotransferase [Enzymatic activity/volume] in Serum or Plasma [facility] Albumin [Mass/volume] in Ser um or Plasma by Bromocresol green (BCG) dye binding methoOrdered By: Floyd Mosleey on 05-18-2024 Albumin BCG dye [Mass/Vol] Albumin [Mass/volume] in Serum or Plasma by Bromocresol green (BCG) dye binding metho 3.5-5.7 [facility] Alkaline phosphatase [Enzyma tic activity/volume] in Serum or PlasmaOrdered By: Floyd Moseley on 05-18-2024 ALP [Catalytic activity/Vol] Alkaline phosphatase [Enzymatic activity/volume] in Serum or Plasma 34-104 [facility] Appearance of UrineOrdered B y: Floyd Moseley on 05-18-2024 Appearance (U) Urine appearance Clear [facility] Aspartate aminotransferase [ Enzymatic activity/volume] in Serum or PlasmaOrdered By: Floyd Moseley on 05-18-2024 AST [Catalytic activity/Vol] Aspartate aminotransferase [Enzymatic activity/volume] in Serum or Plasma 13-39 [facility] Bacteria [Presence] in Urine by AutomatedOrdered By: Floyd Moseley on 05-18-2024 Bacteria Auto Ql (U) Bacteria [Presence] in Urine by Automated None Seen [facility] Basophils Auto (Bld) [#/Vol] Ordered By: Floyd Moseley on 05-18-2024 Basophils (Bld) [#/Vol] Automated basoph il count 0.0-0.2 [facility] Basophils/100 WBC Auto (Bld) Ordered By: Floyd Moseley on 05-18-2024 Basophils/100 WBC (Bld) Automated basophil % . [facility] Bilirubin Test strip Ql (U)O rdered By: Floyd Moseley on 05-18-2024 Bilirubin Ql (U) Bilirubin.total [Presence] in Urine by Test strip Negative [facility] Bilirubin.total [Mass/volume ] in Serum or PlasmaOrdered By: Floyd Moseley on 05-18-2024 Bilirubin [Mass/Vol] Bilirubin.total [Mass/volume] in Serum or Plasma High 0.3-1.0 [facility] Comment on above: Samples from patient s who have taken Naproxen have shown spurious elevation in Total Bilirubin levels. A metabolite of Naproxen, O-desmethylnaproxen, has been shown to interfere with the Champ-Brennen method for measuring Total Bilirubin. COVID Cepheid NegativeOrdere d By: Floyd Moseley on 05-18-2024 SARS-CoV-2 (COVID-19) Ab IA Ql COVID Cepheid Negative [facility] Comment on above: This is a duplicate Cepheid Xpert Xpress CoV-2/Flu/RSV Plus RNA by RT-PCR result to be used for statistical tracking purpose only. COVID-19 / Flu A/B / RSV PCR on 05-18-2024 SARS-CoV-2 (COVID-19) RNA ROSEMARIE+probe Ql (Unsp spec) COVID-19 Cepheid Result Negative for SARS-CoV-2 RNA by RT-PCR Flu A Cepheid Result Negative for Flu A RNA by RT-PCR Flu B Cepheid Result Negative for Flu B RNA by RT-PCR RSV Cepheid Result Negative for RSV RNA by RT-PCR COVID19 Blank Space Reference: Negative COVID19 Blank Space Cepheid Disclaimer The Cepheid Xpert Xpress CoV-2/Flu/RSV Plus has Cepheid Disclaimer not been FDA cleared or approved; this test has Cepheid Disclaimer been authorized by FDA under an EUA for use by Cepheid Disclaimer authorized laboratories; this test has been Cepheid Disclaimer authorized only for the simultaneous qualitative Cepheid Disclaimer detection and differentiation of nucleic acids from Cepheid Disclaimer SARS-CoV-2, influenza A, influenza B, and Cepheid Disclaimer respiratory syncytial virus (RSV), and not for any Cepheid Disclaimer other viruses or pathogens; and this test is only Cepheid Disclaimer authorized for the duration of the declaration that Cepheid Disclaimer circumstances exist justifying the authorization of Cepheid Disclaimer emergency use of in vitro diagnostic tests for Cepheid Disclaimer detection and/or diagnosis of COVID-19 under Cepheid Disclaimer Section 564(b)(1) of the Act, 21 U.S.C. 360bbb- Cepheid Disclaimer 3(b)(1), unless the authorization is terminated or Cepheid Disclaimer revoked sooner. PERFORMED BY: [facility] [place] [address] PATHOLOGIST LABEL FOLDER JOSUE Ford [facility] Comment on above: Performed By: #### C MAGY, FRANNIE, MG #### [address] head/brain wo conon 05-18 CT head/brain wo con [facility] [address] [place] [address] CT Scan Report Signed Patient: Des Jacob MR#: [id number] : 1940 Acct:[id number] Age/Sex: 83 / M ADM Date: 05/18/24 Loc: ER Room: Type: [facility] ER Attending Dr: Copies to: Floyd Moseley MD Ordering Provider: Floyd Moseley MD Date of Service: 05/18/24 CT/CT head/brain wo con: Weakness, off balance CT BRAIN WITHOUT CONTRAST: CLINICAL HISTORY: Weakness, loss of balance and frequent falls COMPARISON: None TECHNIQUE: Contiguous axial unenhanced images were obtained through the brain. This CT exam was performed using one or more following dose reduction techniques: Automated exposure control, adjustment of the mA and/or kV according to patient size, or use of iterative reconstruction technique. FINDINGS: There is generalized atrophy. The ventricles are within normal limits for size and position. 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 There are no additional areas of abnormal attenuation. There is no hemorrhage, mass effect or extra-axial collections. The calvarium is intact. There is minor right maxillary mucosal thickening. The remaining imaged paranasal sinuses and mastoid air cells are clear. There is vertebral artery and carotid siphon plaque. CT/CT head/brain wo con IMPRESSION: ATROPHY AND CHRONIC MICROVASCULAR DISEASE. NO ACUTE INTRACRANIAL TRAUMA. Impression dictated by: Aurelia Michael M.D.05/18/2024 5:47 PM Dictation Location: [place] [address] Transcribed By: [facility] 05/18/241746 Dictated By: Aurelia Michael MD 05/18/241742 Signed By: 05/18/241746 Normal [facility] Calcium [Mass/volume] in Ser um or PlasmaOrdered By: Floyd Moseley on 05-18-2024 Calcium [Mass/Vol] Calcium [Mass/volume ] in Serum or Plasma 8.6-10.3 [facility] Carbon dioxide, total [Moles /volume] in Serum or PlasmaOrdered By: Floyd Moseley on 05-18-2024 CO2 [Moles/Vol] Carbon dioxide, tota l [Moles/volume] in Serum or Plasma Low 21.0-31.0 [facility] Cepheid COVID PCR Negativeon 05-18-2024 SARS-CoV-2 (COVID-19) RNA ROSEMARIE+probe Ql (Unsp spec) Negative Normal Negative [facility] Comment on above: Result Comment: This is a duplicate CepScaylid Xpert Xpress CoV-2/Flu/RSV Plus RNA by RT-PCR result to be used for statistical tracking purpose only. PERFORMED BY: [place] [address] PATHOLOGIST LABEL FOLDER JOSUE DAMON M.D. Performed By: #### C FRANNIE BHATTI, MG #### [place] [id number] [place] Chloride [Moles/volume] in S grady or PlasmaOrdered By: Floyd Moseley on 05-18-2024 Chloride [Moles/Vol] Chloride [Moles/volume] in Serum or Plasma High 98-107 [facility] Color Auto (U)Ordered By: Marilu Moseley on 05-18-2024 Color (U) Color of Urine by Auto Yellow [facility] Complete Blood Count Auto Di ffon 05-18-2024 Basophils (Bld) [#/Vol] 0.0 10*3/uL Normal 0.0-0.2 [facility] Comment on above: Result Comment: PERF ORMED BY: [place] [address] PATHOLOGIST LABEL FOLDER JOSUE DAMON M.D. Performed By: #### C BCMARCI BMP, MG #### [facility] [address] [place] [address] [place] Basophils/100 WBC (Bld) 0.6 % Normal . T [facility] Comment on above: Performed By: #### C BCMARCI BMP, MG #### [address] Eosinophils (Bld) [#/Vol] 0.0 10*3/uL Normal 0.0-0.45 [facility] Comment on above: Performed By: #### C BCNO, BMP, MG #### [address] Eosinophils/100 WBC (Bld) 0.3 % Normal . [facility] Comment on above: Performed By: #### C BCNO, BMP, MG #### [address] Erythrocyte distribution width (RBC) [Ratio] 14.5 % Normal 12.0-14.8 [facility] Comment on above: Performed By: #### C BCNO, BMP, MG #### [address] Hematocrit (Bld) [Volume fraction] 41.1 % Normal 38.8-50.0 [facility] Comment on above: Performed By: #### C BCNO, BMP, MG #### [address] Hemoglobin (Bld) [Mass/Vol] 13.8 g/dL Normal 13.0-17.0 [facility] Comment on above: Performed By: #### C BCNO, BMP, MG #### [address] Lymphocytes (Bld) [#/Vol] 1.6 10*3/uL Normal 1.00-4.8 [facility] Comment on above: Performed By: #### C BCNO, BMP, MG #### [place] [address] [place] Lymphocytes/100 WBC (Bld) 23.7 % Normal . [facility] Comment on above: Performed By: #### C BCNO, BMP, MG #### [address] MCH (RBC) [Entitic mass] 30.9 pg Normal 27.5-35.2 [facility] Comment on above: Performed By: #### C BCNO, BMP, MG #### [address] MCV (RBC) [Entitic vol] 91.7 fL Normal 83.5-101 [facility] Comment on above: Performed By: #### C BCNO, BMP, MG #### [address] Mean Corpuscular HGB Conc 33.7 g/dL Normal 32.5-35.6 [facility] Comment on above: Performed By: #### C BCNO, BMP, MG #### [address] Monocytes (Bld) [#/Vol] 1.2 10*3/uL High 0.0-0.8 [facility] Comment on above: Performed By: #### C BCNO, BMP, MG #### [address] Monocytes/100 WBC (Bld) 20.43 % High 0.00-20.00 [facility] Comment on above: Result Comment: For adults in ED, MDW > 20.0 may be associated with a higher risk of sepsis during the first 12 hrs of hospital admission Performed By: #### C BCNO, BMP, MG #### [address] Monocytes/100 WBC (Bld) 17.3 % Normal . [facility] Comment on above: Performed By: #### C BCNO, BMP, MG #### [address] Neutrophils (Bld) [#/Vol] 3.9 10*3/uL Normal 1.8-7.7 [facility] Comment on above: Performed By: #### C BCNO, BMP, MG #### [address] Neutrophils/100 WBC (Bld) 58.1 % Normal . [facility] Comment on above: Performed By: #### C BCNO, BMP, MG #### [address] NRBC% 0.1 /100{WBC} Normal 0-0.5 [facility] Comment on above: Performed By: #### C BCNO, BMP, MG #### [address] Platelet mean volume (Bld) [Entitic vol] 8.8 fL Normal 6.6-10.1 [facility] Comment on above: Performed By: #### C BCNO, BMP, MG #### [address] Platelets (Bld) [#/Vol] 169 10*3/uL Normal 150-450 [facility] Comment on above: Performed By: #### C BCNO, BMP, MG #### [address] RBC (Bld) [#/Vol] 4.48 10*6/uL Normal 3.90-5.60 [facility] Comment on above: Performed By: #### C BCNO, BMP, MG #### [address] WBC (Bld) [#/Vol] 6.8 10*3/uL Normal 4.1-10.5 [facility] Comment on above: Performed By: #### C BCNO, BMP, MG #### [address] Comprehensive Metabolic Pane stephanie 05-18-2024 Albumin [Mass/Vol] 4.3 g/dL Normal 3.5-5.7 [facility] Comment on above: Performed By: #### C BCNO, BMP, MG #### [address] Albumin/Globulin [Mass ratio] 1.5 {ratio} Normal [facility] Comment on above: Performed By: #### C BCNO, BMP, MG #### [address] ALP [Catalytic activity/Vol] 96 U/L Normal 34-104 [facility] Comment on above: Performed By: #### C BCNO, BMP, MG #### [facility] [address] ALT [Catalytic activity/Vol] 11 U/L Normal 7-52 [facility] Comment on above: Performed By: #### C BCNO, BMP, MG #### [facility] [address] Anion gap [Moles/Vol] 9.3 mmol/L Normal 6.0-15.0 [facility] Comment on above: Performed By: #### C BCNO, BMP, MG #### [facility] [address] AST [Catalytic activity/Vol] 17 U/L Normal 13-39 [facility] Comment on above: Performed By: #### C BCNO, BMP, MG #### [facility] [address] [place] [address] [place] Bilirubin [Mass/Vol] 1.3 mg/dL High 0.3-1.0 [facility] Comment on above: Result Comment: Samp les from patients who have taken Naproxen have shown spurious elevation in Total Bilirubin levels. A metabolite of Naproxen, O-desmethylnaproxen, has been shown to interfere with the Jendrassik-Grof method for measuring Total Bilirubin. Performed By: #### C BCNO, BMP, MG #### [facility] [address] [place] [address] [place] Calcium [Mass/Vol] 9.0 mg/dL Normal 8.6-10.3 [facility] Comment on above: Performed By: #### C BCNO, BMP, MG #### [facility] [address] [place] [id number] [place] Chloride [Moles/Vol] 110 mmol/L High 98-107 [facility] Comment on above: Performed By: #### C BCNO, BMP, MG #### [facility] [address] [place] [address] [place] CO2 [Moles/Vol] 20.6 mmol/L Low 21.0-31.0 [facility] Comment on above: Performed By: #### C BCNO, BMP, MG #### [address] Creatinine [Mass/Vol] 1.33 mg/dL High 0.70-1.30 [facility] Comment on above: Performed By: #### C BCNO, BMP, MG #### [address] Creatinine Clr Calc Pharmacy 46.62 Normal [facility] Comment on above: Performed By: #### C BCNO, BMP, MG #### [address] Estimated GFR 53.700 mL/Min Normal [facility] Comment on above: Performed By: #### C BCNO, BMP, MG #### [address] Globulin (S) [Mass/Vol] 2.8 g/dL Normal T [facility] Comment on above: Performed By: #### C BCNO, BMP, MG #### [address] Glucose [Mass/Vol] 119 mg/dL High 70-100 [facility] Comment on above: Result Comment: [place] Glucose Reference Range is dependent on time and content of last meal. Glucose of more than 200 mg/dL in a nonstressed, ambulatory subject supports the diagnosis of Diabetes Mellitus. ADA recommended reference range Performed By: #### C BCNO, BMP, MG #### [address] Potassium [Moles/Vol] 3.9 mmol/L Normal 3.5-5.1 [facility] Comment on above: Performed By: #### C BCNO, BMP, MG #### [address] Protein [Mass/Vol] 7.1 g/dL Normal 6.4-8.9 [facility] Comment on above: Performed By: #### C BCNO, BMP, MG #### [address] [address] [place] Sodium [Moles/Vol] 136 mmol/L Normal 136-145 [facility] Comment on above: Performed By: #### C BCNO, BMP, MG #### [facility] [address] Urea nitrogen [Mass/Vol] 36 mg/dL High 7-25 [facility] Comment on above: Performed By: #### C BCNO, BMP, MG #### [facility] [address] [place] [address] [place] Creatine Kinaseon 05-18-2024 CK [Catalytic activity/Vol] 163 U/L Normal 30[address] [facility] Comment on above: Performed By: #### C BCNO, BMP, MG #### [address] Creatine kinase [Enzymatic a ctivity/volume] in Serum or PlasmaOrdered By: Floyd Moseley on 05-18-2024 CK [Catalytic activity/Vol] Creatine kinase [Enzymatic activity/volume] in Serum or Plasma 30 [facility] Creatinine [Mass/volume] in Serum or PlasmaOrdered By: Floyd Moseley on 05-18-2024 Creatinine [Mass/Vol] Creatinine [Mass/volume] in Serum or Plasma High 0.70-1.30 [facility] Dipstick and Microscopicon 0 05-18-2024 Appearance (U) Clear Normal Clear [facility] Comment on above: Order Comment: Name Collection Type:: Clean-Voided Midstream Performed By: #### C BCNO, BMP, MG #### [address] Bacteria,Urine None Seen Normal None Seen [facility] Comment on above: Order Comment: Name Collection Type:: Clean-Voided Midstream Performed By: #### C BCNO, BMP, MG #### [address] Bilirubin,Urine Negative Normal Negative [facility] Comment on above: Order Comment: Name Collection Type:: Clean-Voided Midstream Performed By: #### C BCNO, BMP, MG #### [address] [address] [place] Color (U) Yellow Normal Yellow [facility] Comment on above: Order Comment: Name Collection Type:: Clean-Voided Midstream Performed By: #### C BCNO, BMP, MG #### [address] Glucose Ql (U) Normal Normal Normal [facility] Comment on above: Order Comment: Name Collection Type:: Clean-Voided Midstream Performed By: #### C BCNO, BMP, MG #### [place] [address] [place] Hyaline Casts,Urine 0-8 Normal 0-8 [facility] Comment on above: Order Comment: Name Collection Type:: Clean-Voided Midstream Performed By: #### C BCNO, BMP, MG #### [address] Ketones Ql (U) 1+ High Negative [facility] Comment on above: Order Comment: Name Collection Type:: Clean-Voided Midstream Performed By: #### C BCNO, BMP, MG #### [address] Leukocyte esterase Test strip Ql (U) Negative Normal Negative [facility] Comment on above: Order Comment: Name Collection Type:: Clean-Voided Midstream Performed By: #### C BCNO, BMP, MG #### [place] [address] [place] Mucus,Urine 1+ Critically abnormal [facility] Comment on above: Order Comment: Name Collection Type:: Clean-Voided Midstream Result Comment: PERF ORMED BY: [place] [address] PATHOLOGIST LABEL FOLDER JOSUE DAMON M.D. Performed By: #### C BCNO, BMP, MG #### [place] [address] [place] Nitrite,Urine Negative Normal Negative [facility] Comment on above: Order Comment: Name Collection Type:: Clean-Voided Midstream Performed By: #### C BCNO, BMP, MG #### [address] Occult Blood,Urine Trace High Negative [facility] Comment on above: Order Comment: Name Collection Type:: Clean-Voided Midstream Result Comment: PERF ORMED BY: [place] [address] PATHOLOGIST LABEL FOLDER JOSUE DAMON M.D. Performed By: #### C BCNO, BMP, MG #### [address] pH (U) 5.5 [pH] Normal 5.0-9.0 [facility] Comment on above: Order Comment: Name Collection Type:: Clean-Voided Midstream Performed By: #### C BCNO, BMP, MG #### [address] Protein (U) [Mass/Vol] 100 mg/dL High Negative Th [facility] Comment on above: Order Comment: Name Collection Type:: Clean-Voided Midstream Performed By: #### C BCNO, BMP, MG #### [address] RBC,Urine 1-2 Normal 0-4 [facility] Comment on above: Order Comment: Name Collection Type:: Clean-Voided Midstream Performed By: #### C BCNO, BMP, MG #### [address] Specificy [place],Urine 1.026 Normal 1.001-1.030 [facility] Comment on above: Order Comment: Name Collection Type:: Clean-Voided Midstream Performed By: #### C BCNO, BMP, MG #### [address] Squamous Epithelial Cell,Urine 1-2 Normal 0-2 [facility] Comment on above: Order Comment: Name Collection Type:: Clean-Voided Midstream Performed By: #### C BCNO, BMP, MG #### [address] Urobilinogen,Urine Normal Normal Normal [facility] Comment on above: Order Comment: Name Collection Type:: Clean-Voided Midstream Performed By: #### C BCNO, BMP, MG #### [address] WBC,Urine 3-4 Normal 0-4 [facility] Comment on above: Order Comment: Name Collection Type:: Clean-Voided Midstream Performed By: #### C BCNO, BMP, MG #### [facility] [address] [place] [address] ECG 12 lead ECGon 05-18-2024 ECG 12 lead ECG [facility] [address] [place] [address] Electrocardiograph Report Signed Patient: Des Jacob MR#: [id number] : 1940 Acct:[id number] Age/Sex: 83 / M ADM Date: 05/18/24 Loc: ER Room: Type: [facility] ER Attending Dr: Ordering Provider: Floyd Moseley MD Date of Service: 05/18/2410/05/1656 ECG/ECG 12 lead ECG: Weakness Copies to: Test Reason : Blood Pressure : */* mmHG Vent. Rate : 60 BPM Atrial Rate : 60 BPM P-R Int : 150 ms QRS Dur : 80 ms QT Int : 406 ms P-R-T Axes : 76 40 69 degrees QTcB Int : 406 ms Normal sinus rhythm Normal ECG When compared with ECG of 29-Jan-2014 06:35, No significant change was found Confirmed by FLOYD MOSELEY MD ([id number]) on 05/19/2024 1:39:56 AM Referred By: Electronically Signed By: FLOYD MOSELEY MD Transcribed By: MUS Signed By Floyd Moseley MD 11/05 0139 Normal [facility] Eosinophils Auto (Bld) [#/Vo l]Ordered By: Floyd Moseley on 05-18-2024 Eosinophils (Bld) [#/Vol] Automated eosinophil count 0.0-0.45 [facility] Eosinophils/100 WBC Auto (Bl d)Ordered By: Floyd Moseley on 05-18-2024 Eosinophils/100 WBC (Bld) Automated eosinophil % . [facility] Epithelial cells.squamous [# /area] in Urine sediment by Automated countOrdered By: Floyd Moseley on 05-18-2024 Epithelial cells.squamous Auto (Urine sed) [#/Area] Epithelial cells.squamous [#/area] in Urine sediment by Automated count 0-2 [facility] Erythrocyte distribution wid th Auto (RBC) [Ratio]Ordered By: Floyd Moseley on 05-18-2024 Erythrocyte distribution width (RBC) [Ratio] Erythrocyte distribution width [Ratio] by Automated count 12.0-14.8 [facility] Erythrocytes [#/area] in Uri ne sediment by Automated countOrdered By: Floyd Moseley on 05-18-2024 RBC Auto (Urine sed) [#/Area] Erythrocytes [#/area] in Urine sediment by Automated count 0-4 [facility] Globulin Calc (S) [Mass/Vol] Ordered By: Floyd Moseley on 05-18-2024 Globulin (S) [Mass/Vol] Serum globulin measurement by calculation (mass/volume) [facility] Glucose Glucometer (BldC) [M ass/Vol]Ordered By: Floyd Moseley on 05-18-2024 Glucose [Mass/Vol] Capillary blood glucose measurement by glucometer (mass/volume) [facility] Comment on above: Random Glucose Refer ence Range is dependent on time and content of last meal. Glucose of more than 200 mg/dL in a nonstressed, ambulatory subject supports the diagnosis of Diabetes Mellitus. Glucose Poct Glucometerson 0 05-18-2024 Commemt1 Glu2: Cleaned Meter Normal [facility] Comment on above: Result Comment: PERF ORMED BY: [facility] [address] [place] [address] PATHOLOGIST LABEL FOLDER JOSUE DAMON M.D. Performed By: #### G LULS #### Point of Care testing , Glucose [Mass/Vol] 115 mg/dL Normal [facility] Comment on above: Result Comment: [place] om Glucose Reference Range is dependent on time and content of last meal. Glucose of more than 200 mg/dL in a nonstressed, ambulatory subject supports the diagnosis of Diabetes Mellitus. Performed By: #### G LULS #### Point of Care testing , Glucose [Mass/volume] in Ser um or PlasmaOrdered By: Floyd Moseley on 05-18-2024 Glucose [Mass/Vol] Glucose [Mass/volume ] in Serum or Plasma High 70-100 [facility] Comment on above: ADA recommended refe rence rangeRandom Glucose Reference Range is dependent on time and content of last meal. Glucose of more than 200 mg/dL in a nonstressed, ambulatory subject supports the diagnosis of Diabetes Mellitus. Glucose [Mass/volume] in Uri ne by Test stripOrdered By: Floyd Moseley on 05-18-2024 Glucose Test strip (U) [Mass/Vol] Glucose [Mass/volume] in Urine by Test strip Normal [facility] Hematocrit Auto (Bld) [Volum e fraction]Ordered By: Floyd Moseley on 05-18-2024 Hematocrit (Bld) [Volume fraction] Hematocrit [Volume Fraction] of Blood by Automated count 38.8-50.0 [facility] Hemoglobin Test strip Ql (U) Ordered By: Floyd Moseley on 05-18-2024 Hemoglobin Ql (U) Hemoglobin [Presence ] in Urine by Test strip High Negative [facility] Hemoglobin [Mass/volume] in BloodOrdered By: Floyd Moseley on 05-18-2024 Hemoglobin (Bld) [Mass/Vol] Hemoglobin [Mass/volume] in Blood 13.0-17.0 [facility] Hyaline casts [#/area] in Ur ine sediment by Automated countOrdered By: Floyd Moseley on 05-18-2024 Hyaline casts Auto (Urine sed) [#/Area] Hyaline casts [#/area] in Urine sediment by Automated count 0-8 [facility] Ketones Test strip Ql (U)Ord ered By: Floyd Moseley on 05-18-2024 Ketones Ql (U) Ketones [Presence] i n Urine by Test strip High Negative [facility] Lactate [Moles/volume] in Se rum or PlasmaOrdered By: Floyd Moseley on 05-18-2024 Lactate [Moles/Vol] Lactate [Moles/volume] in Serum or Plasma 0.5-1.9 [facility] Comment on above: Lactic Acid referenc e range has been updated to 0.5 1.9 mmol/L and the critical range of 2.0 or greater. Lactic Acidon 05-18-2024 Lactate [Moles/Vol] 1.4 mmol/L Normal 0.5-1.9 [facility] Comment on above: Result Comment: Lact ic Acid reference range has been updated to 0.5 ? 1.9 mmol/L and the critical range of 2.0 or greater. PERFORMED BY: [place] [address] PATHOLOGIST LABEL FOLDER JOSUE DAMON M.D. Performed By: #### C BCNO, BMP, MG #### [address] Leukocyte esterase [Presence ] in Urine by Test stripOrdered By: Floyd Moseley on 05-18-2024 Leukocyte esterase Test strip Ql (U) Leukocyte esterase [Presence] in Urine by Test strip Negative [facility] Leukocytes [#/area] in Urine sediment by Automated countOrdered By: Floyd Moseley on 05-18-2024 WBC Auto (Urine sed) [#/Area] Leukocytes [#/area] in Urine sediment by Automated count 0-4 [facility] Leukocytes [#/volume] correc marimar for nucleated erythrocytes in Blood by Automated counOrdered By: Floyd Moseley on 05-18-2024 WBC corrected for nucl RBC Auto (Bld) [#/Vol] Leukocytes [#/volume] corrected for nucleated erythrocytes in Blood by Automated coun 4.1-10.5 [facility] Lymphocytes Auto (Bld) [#/Vo l]Ordered By: Floyd Moseley on 05-18-2024 Lymphocytes (Bld) [#/Vol] Lymphocytes [#/volume] in Blood by Automated count 1.00-4.8 [facility] Lymphocytes/100 WBC Auto (Bl d)Ordered By: Floyd Moseley on 05-18-2024 Lymphocytes/100 WBC (Bld) Lymphocytes/100 leukocytes in Blood by Automated count . [facility] MCH Auto (RBC) [Entitic mass ]Ordered By: Floyd Moseley on 05-18-2024 MCH (RBC) [Entitic mass] MCH [Entitic mass] by Automated count 27.5-35.2 [facility] MCHC Auto (RBC) [Mass/Vol]Or dered By: Floyd Moseley on 05-18-2024 MCHC (RBC) [Mass/Vol] MCHC [Mass/volume] by Automated count 32.5-35.6 [facility] MCV Auto (RBC) [Entitic vol] Ordered By: Floyd Moseley on 05-18-2024 MCV (RBC) [Entitic vol] MCV [Entitic vol ume] by Automated count 83.5-101 [facility] Magnesiumon 05-18-2024 Magnesium [Mass/Vol] 2.0 mg/dL Normal 1.9-2.7 [facility] Comment on above: Performed By: #### C BCNO, BMP, MG #### [facility] [address] [place] [address] Magnesium [Mass/volume] in S grady or PlasmaOrdered By: Floyd Moseley on 05-18-2024 Magnesium [Mass/Vol] Magnesium [Mass/volume] in Serum or Plasma 1.9-2.7 [facility] Monocyte distribution width [Entitic volume] in Blood by AutomatedOrdered By: Floyd Moseley on 05-18-2024 Monocyte distribution width Auto (Bld) [Entitic vol] Monocyte distribution width [Entitic volume] in Blood by Automated High 0.00-20.00 [facility] Comment on above: For adults in ED, MD W > 20.0 may be associated with a higher risk of sepsis during the first 12 hrs of hospital admission Monocytes Auto (Bld) [#/Vol] Ordered By: Floyd Moseley on 05-18-2024 Monocytes (Bld) [#/Vol] Automated blood monocyte count High 0.0-0.8 [facility] Monocytes/100 WBC Auto (Bld) Ordered By: Floyd Moseley on 05-18-2024 Monocytes/100 WBC (Bld) Automated monocyte % . [facility] Mucus [Presence] in Urine by AutomatedOrdered By: Floyd Moseley on 05-18-2024 Mucus Auto Ql (U) Mucus [Presence] in Urine by Automated Abnormal [facility] Neutrophils Auto (Bld) [#/Vo l]Ordered By: Floyd Moseley on 05-18-2024 Neutrophils (Bld) [#/Vol] Neutrophils [#/volume] in Blood by Automated count 1.8-7.7 [facility] Neutrophils/100 WBC Auto (Bl d)Ordered By: Floyd Moseley on 05-18-2024 Neutrophils/100 WBC (Bld) Automated neutrophil % . [facility] Nitrite Test strip Ql (U)Ord ered By: Floyd Moseley on 05-18-2024 Nitrite Ql (U) Nitrite [Presence] i n Urine by Test strip Negative [facility] No Panel InformationOrdered By: Floyd Moseley on 05-18-2024 Bedside Glucose Comment Glu2: cleaned meter [facility] Estimated GFR (CKD-EPI) 53.700 mL/Min [facility] Creatinine Clearance (Chem 46.62 [facility] Nucleated erythrocytes [Pres ence] in Blood by Automated countOrdered By: Floyd Moseley on 05-18-2024 Nucleated RBC Auto Ql (Bld) Nucleated erythrocytes [Presence] in Blood by Automated count 0-0.5 [facility] Platelet mean volume Auto (B ld) [Entitic vol]Ordered By: Floyd Moseley on 05-18-2024 Platelet mean volume (Bld) [Entitic vol] Platelet mean volume [Entitic volume] in Blood by Automated count 6.6-10.1 [facility] Platelets Auto (Bld) [#/Vol] Ordered By: Floyd Moseley on 05-18-2024 Platelets (Bld) [#/Vol] Platelets [#/vol ume] in Blood by Automated count 150-450 [facility] Potassium [Moles/volume] in Serum or PlasmaOrdered By: Floyd Moseley on 05-18-2024 Potassium [Moles/Vol] Potassium [Moles/volume] in Serum or Plasma 3.5-5.1 [facility] Protein Test strip (U) [Mass /Vol]Ordered By: Floyd Moseley on 05-18-2024 Protein (U) [Mass/Vol] Protein [Mass/vol ume] in Urine by Test strip High Negative [facility] Protein [Mass/volume] in Ser um or PlasmaOrdered By: Floyd Moseley on 05-18-2024 Protein [Mass/Vol] Protein [Mass/volume ] in Serum or Plasma 6.4-8.9 [facility] RBC Auto (Bld) [#/Vol]Ordere d By: Floyd Moseley on 05-18-2024 RBC (Bld) [#/Vol] Erythrocytes [#/volume] in Blood by Automated count 3.90-5.60 [facility] Respiratory specimen influen za A virus, influenza B virus, respiratory syncytical virOrdered By: Floyd Moseley on 05-18-2024 SARS-CoV-2 (COVID-19) RNA ROSEMARIE+probe Ql (Unsp spec) Respiratory specimen influenza A virus, influenza B virus, respiratory syncytical vir [facility] Serum or plasma albumin/glob ulin mass ratioOrdered By: Floyd Moseley on 05-18-2024 Albumin/Globulin [Mass ratio] Serum or plasma albumin/globulin mass ratio [facility] Serum or plasma anion gap de terminationOrdered By: Floyd Moseley on 05-18-2024 Anion gap [Moles/Vol] Serum or plasma an ion gap determination 6.0-15.0 [facility] Sodium [Moles/volume] in Ser um or PlasmaOrdered By: Floyd Moseley on 05-18-2024 Sodium [Moles/Vol] Sodium [Moles/volume ] in Serum or Plasma 136-145 [facility] Specific gravity Test strip (U) [Rel density]Ordered By: Floyd Moseley on 05-18-2024 Specific gravity (U) [Rel density] Specific gravity of Urine by Test strip 1.001-1.030 [facility] Thyroid Stimulating Hormoneo n 05-18-2024 TSH Qn 1.91 m[IU]/L Normal 0.45-5.33 [facility] Comment on above: Result Comment: PERF ORMED BY: [place] [address] PATHOLOGIST LABEL FOLDER JOSUE DAMON M.D. Performed By: #### C BCNO, BMP, MG #### [address] Thyrotropin [Units/volume] i n Serum or PlasmaOrdered By: Floyd Moseley on 05-18-2024 TSH Qn Thyrotropin [Units/volume] in Serum or Plasma 0.45-5.33 [facility] Troponin I High Sensitivityo n 05-18-2024 Troponin I High Sensitivity 11 Normal 0-20 [facility] Comment on above: Result Comment: The Troponin units of report have been changed to meet the Chest Pain Accreditation requirement, element EC5.M1l2. Troponin units are changed from pg/ml to ng/L. Also, the decimal is removed and results are in whole numbers. PERFORMED BY: [place] [address] PATHOLOGIST LABEL FOLDER JOSUE DAMON M.D. Performed By: #### C BCNO, BMP, MG #### [facility] [address] Troponin I.cardiac [Mass/vol ume] in Serum or Plasma by Detection limit <= 0.01 ng/Ordered By: Floyd Moseley on 05-18-2024 Troponin I.cardiac DL <= 0.01 ng/mL [Mass/Vol] Troponin I.cardiac [Mass/volume] in Serum or Plasma by Detection limit <= 0.01 ng/ 0-20 [facility] Comment on above: The Troponin units o f report have been changed to meet the Chest Pain Accreditation requirement, element EC5.M1l2. Troponin units are changed from pg/ml to ng/L. Also, the decimal is removed and results are in whole numbers. Urea nitrogen [Mass/volume] in Serum or PlasmaOrdered By: Floyd Moseley on 05-18-2024 Urea nitrogen [Mass/Vol] Urea nitrogen [Mass/volume] in Serum or Plasma High 7-25 [facility] Urobilinogen Test strip (U) [Mass/Vol]Ordered By: Floyd Moseley on 05-18-2024 Urobilinogen (U) [Mass/Vol] Urobilinogen [Mass/volume] in Urine by Test strip Normal [facility] WBC Auto (Bld) [#/Vol]Ordere d By: Floyd Moseley on 05-18-2024 WBC (Bld) [#/Vol] Leukocytes [#/volume ] in Blood by Automated count 4.1-10.5 [facility] X-ray reportOrdered By: Katherine Michael on 05-18-2024 Study report [facility] [address] [place] [address] XRay Report Signed Patient: Des Jacob MR#: [id number] : 1940 Acct:[id number] Age/Sex: 83 / M ADM Date: 5 Loc: ER Room: Type: [facility] ER Attending Dr: Copies to: Floyd Moseley MD~ Ordering Provider: Floyd Moseley MD Date of Service: 05/18/24 XR/XR chest 1V portable: Weakness PORTABLE AP ERECT CHEST 1731 hours CLINICAL HISTORY: Weakness and frequent falls COMPARISON: The 2010 The heart is within normal limits. There is no vascular congestion. Minor chronic pleural and/or parenchymal change is again noted at the left base. There is no developing consolidation. There is no sizable effusion or pneumothorax. The osseous structures are intact. Mild endplate spurring is seen. XR/XR chest 1V portable IMPRESSION: NO ACUTE FINDINGS Impression dictated by: Aurelia Michael M.D.05/18/2024 7:44 PM Dictation Location: [place] [address] Transcribed By: APOLINAR 05/18/241943 Dictated By: Aurelia Michael MD 05/18/241940 Signed By: 05/18/241943 [facility] Work Phone: XR chest 1V portableon 05-18 XR chest 1V portable [facility] [address] [facility] [address] [place] [address] XRay Report Signed Patient: Des Jacob MR#: [id number] : 1940 Acct:[id number] Age/Sex: 83 / M ADM Date: 05/18/24 Loc: ER Room: Type: [facility] ER Attending Dr: Copies to: Floyd Moseley MD Ordering Provider: Floyd Moseley MD Date of Service: 05/18/24 XR/XR chest 1V portable: Weakness PORTABLE AP ERECT CHEST 1731 hours CLINICAL HISTORY: Weakness and frequent falls COMPARISON: The 2010 The heart is within normal limits. There is no vascular congestion. Minor chronic pleural and/or parenchymal change is again noted at the left base. There is no developing consolidation. There is no sizable effusion or pneumothorax. The osseous structures are intact. Mild endplate spurring is seen. XR/XR chest 1V portable IMPRESSION: NO ACUTE FINDINGS Impression dictated by: Aurelia Michael M.D.05/18/2024 7:44 PM Dictation Location: [place] [address] Transcribed By: APOLINAR 05/18/241943 Dictated By: Aurelia Michael MD 05/18/241940 Signed By: 05/18/241943 Normal [facility] pH Test strip (U)Ordered By: Floyd Moseley on 05-18-2024 pH (U) pH of Urine by Test strip 5.0-9.0 [facility] Cryotherapy, skin lesionon 0 05-17-2024 [facility] Cryotherapy, skin lesionOrde red By: Jaz Jim on 05-17-2024 [facility] Work Phone: Hemoglobin a1c with eagon Glucose [Mass/Vol] 131 mg/dL [facility] HbA1c (Bld) [Mass fraction] 6.2 % High 4.3 - 5.6 % [facility] Comment on above: Increased risk for d iabetes: 5.7 - 6.4 diabetes: >6.4 glycemic control for adults with diabetes: <7.0 Interpretation and review of laboratory results Abnormal [facility] A1C with Estimated Average G luon 02-27-2024 Glucose [Mass/Vol] 131 mg/dL Normal [facility] Comment on above: Result Comment: PERF ORMED BY: [place] [address] PATHOLOGIST LABEL FOLDER JOSUE DAMON M.D. Performed By: #### C BCNO, BMP, MG #### [facility] [address] [place] [address] HbA1c (Bld) [Mass fraction] 6.2 % High 4.3-5.6 [facility] Comment on above: Result Comment: Incr eased risk for diabetes: 5.7 - 6.4 diabetes: >6.4 glycemic control for adults with diabetes: <7.0 Performed By: #### C BCNO, BMP, MG #### [facility] [address] [place] [address] Alanine aminotransferase [En zymatic activity/volume] in Serum or PlasmaOrdered By: Phani Ambrocio on 02-27-2024 ALT [Catalytic activity/Vol] Alanine aminotransferase [Enzymatic activity/volume] in Serum or Plasma 7-52 [facility] Albumin [Mass/volume] in Ser um or Plasma by Bromocresol green (BCG) dye binding methoOrdered By: Phani Ambrocio on 02-27-2024 Albumin BCG dye [Mass/Vol] Albumin [Mass/volume] in Serum or Plasma by Bromocresol green (BCG) dye binding metho 3.5-5.7 [facility] Alkaline phosphatase [Enzyma tic activity/volume] in Serum or PlasmaOrdered By: Phani Ambrocio on 02-27-2024 ALP [Catalytic activity/Vol] Alkaline phosphatase [Enzymatic activity/volume] in Serum or Plasma 34-104 [facility] Aspartate aminotransferase [ Enzymatic activity/volume] in Serum or PlasmaOrdered By: Phani Ambrocio on 02-27-2024 AST [Catalytic activity/Vol] Aspartate aminotransferase [Enzymatic activity/volume] in Serum or Plasma Low 13-39 [facility] Basophils Auto (Bld) [#/Vol] Ordered By: Phani Ambrocio on 02-27-2024 Basophils (Bld) [#/Vol] Automated basoph il count 0.0-0.2 [facility] Basophils/100 WBC Auto (Bld) Ordered By: Phani Ambrocio on 02-27-2024 Basophils/100 WBC (Bld) Automated basophil % . [facility] Bilirubin.total [Mass/volume ] in Serum or PlasmaOrdered By: Phani Ambrocio on 02-27-2024 Bilirubin [Mass/Vol] Bilirubin.total [Mass/volume] in Serum or Plasma 0.3-1.0 [facility] Blood estimated average gluc ose determination by estimation from glycated hemoglobinOrdered By: Phani Ambrocio on 02-27-2024 Average glucose Estimated from glycated hemoglobin (Bld) [Mass/Vol] Glucose mean value [Mass/volume] in Blood Estimated from glycated hemoglobin [facility] CBC W Auto Differential pane l (Bld)on 02-27-2024 Basophils (Bld) [#/Vol] 0 10*3/uL 0.0 - 0.2 10*3/uL [facility] Basophils/100 WBC Manual cnt (Syn fld) 0.6 % . [facility] Eosinophils (Bld) [#/Vol] 0.2 10*3/uL 0.0 - 0.45 10*3/uL [facility] Eosinophils/100 WBC Manual cnt (Syn fld) 2.4 % . [facility] Erythrocyte distribution width (RBC) [Ratio] 14.3 % 12.0 - 14.8 % [facility] Hematocrit (Bld) [Volume fraction] 38.3 % Low 38.8 - 50.0 % [facility] Hemoglobin (Bld) [Mass/Vol] 12.8 g/dL Low 13.0 - 17.0 g/dL [facility] Interpretation and review of laboratory results Abnormal [facility] Lymphocytes (Bld) [#/Vol] 2 10*3/uL 1.00 - 4.8 10*3/uL [facility] Lymphocytes/100 WBC Manual cnt (Syn fld) 31.4 % . [facility] MCH (RBC) [Entitic mass] 31 pg 27.5 - 35.[address] [facility] MCHC (RBC) [Mass/Vol] 33.3 g/dL 32.5 - 35.6 g/dL [facility] MCV (RBC) [Entitic vol] 92.9 fL 83.5 - [address] [facility] Monocytes (Bld) [#/Vol] 0.7 10*3/uL 0.0 - 0.8 10*3/uL [facility] Monocytes+Macrophages/1 00 WBC Manual cnt (Syn fld) 10.3 % . [facility] Neutrophils (Bld) [#/Vol] 3.5 10*3/uL 1.8 - 7.7 10*3/uL [facility] Neutrophils/100 WBC Manual cnt (Syn fld) 55.3 % . [facility] NRBC 0.1 /100{WBC} 0 - 0.5 /100{WBC} [facility] Platelet mean volume (Bld) [Entitic vol] 9.4 fL 6.6 - 10.[address] [facility] Platelets (Bld) [#/Vol] 175 10*3/uL 150 - 450 10*3/uL [facility] RBC LM.HPF (Urine sed) [#/Area] 4.13 10*6/uL 3.90 - 5.60 10*6/uL [facility] WBC (Bld) [#/Vol] 6.4 10*3/uL 4.1 - 10.5 10*3/uL [facility] WBC LM.HPF (Urine sed) [#/Area] 6.4 10*3/uL 4.1 - 10.5 10*3/uL [facility] Calcium [Mass/volume] in Ser um or PlasmaOrdered By: Phani Ambrocio on 02-27-2024 Calcium [Mass/Vol] Calcium [Mass/volume ] in Serum or Plasma 8.6-10.3 [facility] [facility] Carbon dioxide, total [Moles /volume] in Serum or PlasmaOrdered By: Phani Ambrocio on 02-27-2024 CO2 [Moles/Vol] Carbon dioxide, tota l [Moles/volume] in Serum or Plasma 21.0-31.0 [facility] Chloride [Moles/volume] in S grady or PlasmaOrdered By: Phani Ambrocio on 02-27-2024 Chloride [Moles/Vol] Chloride [Moles/volume] in Serum or Plasma High 98-107 [facility] Cholesterol [Mass/volume] in Serum or PlasmaOrdered By: Phani Ambrocio on 02-27-2024 Cholesterol [Mass/Vol] Cholesterol [Mass/volume] in Serum or Plasma Low 140-200 [facility] Comment on above: Chol less than 200 m g/dl low riskChol 201-239 mg/dl borderline riskChol 240 mg/dl and greater high risk Cholesterol in HDL [Mass/vol ume] in Serum or PlasmaOrdered By: Phani Ambrocio on 02-27-2024 Cholesterol in HDL [Mass/Vol] Serum or plasma high density lipoprotein (HDL) cholesterol measurement 23-92 [facility] Comment on above: HDL CHOL ATP-III CLA SSIFICATION Cardiovascular RiskHDL > or equal to 60 mg/dL LOWHDL < 40 mg/dL HIGH Cholesterol in LDL Calc [Mas s/Vol]Ordered By: Phani Ambrocio on 02-27-2024 Cholesterol in LDL [Mass/Vol] Cholesterol in LDL [Mass/volume] in Serum or Plasma by calculation 0-100 [facility] Comment on above: LDL ATP III CLASSIFI CATIONLDL less than 100 mg/dL OptimalLDL 100-129 mg/dL Near or above optimalLDL 130-159 mg/dL Borderline highLDL 160-189 mg/dL HighLDL greater than 189 mg/dL Very high Cholesterol in VLDL Calc [Ma ss/Vol]Ordered By: Phani Ambrocio on 02-27-2024 Cholesterol in VLDL [Mass/Vol] Cholesterol in VLDL [Mass/volume] in Serum or Plasma by calculation [facility] Complete Blood Count Auto Di ffon 02-27-2024 Basophils (Bld) [#/Vol] 0.0 10*3/uL Normal 0.0-0.2 [facility] Comment on above: Result Comment: PERF ORMED BY: [facility] [address] [place] [address] PATHOLOGIST LABEL FOLDER JOSUE DAMON M.D. Performed By: #### G LULS #### Point of Care testing , Basophils/100 WBC (Bld) 0.6 % Normal . T [facility] Comment on above: Performed By: #### G LULS #### Point of Care testing , Eosinophils (Bld) [#/Vol] 0.2 10*3/uL Normal 0.0-0.45 [facility] Comment on above: Performed By: #### G LULS #### Point of Care testing , Eosinophils/100 WBC (Bld) 2.4 % Normal . [facility] Comment on above: Performed By: #### G LULS #### Point of Care testing , Erythrocyte distribution width (RBC) [Ratio] 14.3 % Normal 12.0-14.8 [facility] Comment on above: Performed By: #### G LULS #### Point of Care testing , Hematocrit (Bld) [Volume fraction] 38.3 % Low 38.8-50.0 [facility] Comment on above: Performed By: #### G LULS #### Point of Care testing , Hemoglobin (Bld) [Mass/Vol] 12.8 g/dL Low 13.0-17.0 [facility] Comment on above: Performed By: #### G LULS #### Point of Care testing , Lymphocytes (Bld) [#/Vol] 2.0 10*3/uL Normal 1.00-4.8 [facility] Comment on above: Performed By: #### G LULS #### Point of Care testing , Lymphocytes/100 WBC (Bld) 31.4 % Normal . [facility] Comment on above: Performed By: #### G LULS #### Point of Care testing , MCH (RBC) [Entitic mass] 31.0 pg Normal 27.5-35.2 [facility] Comment on above: Performed By: #### G LULS #### Point of Care testing , MCV (RBC) [Entitic vol] 92.9 fL Normal 83.5-101 [facility] Comment on above: Performed By: #### G LULS #### Point of Care testing , Mean Corpuscular HGB Conc 33.3 g/dL Normal 32.5-35.6 [facility] Comment on above: Performed By: #### G LULS #### Point of Care testing , Monocytes (Bld) [#/Vol] 0.7 10*3/uL Normal 0.0-0.8 [facility] Comment on above: Performed By: #### G LULS #### Point of Care testing , Monocytes/100 WBC (Bld) 10.3 % Normal . [facility] Comment on above: Performed By: #### G LULS #### Point of Care testing , Neutrophils (Bld) [#/Vol] 3.5 10*3/uL Normal 1.8-7.7 [facility] Comment on above: Performed By: #### G LULS #### Point of Care testing , Neutrophils/100 WBC (Bld) 55.3 % Normal . [facility] Comment on above: Performed By: #### G LULS #### Point of Care testing , NRBC% 0.1 /100{WBC} Normal 0-0.5 [facility] Comment on above: Performed By: #### G LULS #### Point of Care testing , Platelet mean volume (Bld) [Entitic vol] 9.4 fL Normal 6.6-10.1 [facility] Comment on above: Performed By: #### G LULS #### Point of Care testing , Platelets (Bld) [#/Vol] 175 10*3/uL Normal 150-450 [facility] Comment on above: Performed By: #### G JUAN #### Point of Care testing , RBC (Bld) [#/Vol] 4.13 10*6/uL Normal 3.90-5.60 [facility] Comment on above: Performed By: #### G ANETTELS #### Point of Care testing , WBC (Bld) [#/Vol] 6.4 10*3/uL Normal 4.1-10.5 [facility] Comment on above: Performed By: #### G JUAN #### Point of Care testing , Comprehensive Metabolic Pane stephanie 02-27-2024 Albumin [Mass/Vol] 3.9 g/dL Normal 3.5-5.7 [facility] Comment on above: Performed By: #### C BCNO, BMP, MG #### [facility] [address] Albumin/Globulin [Mass ratio] 1.9 {ratio} Normal [facility] Comment on above: Performed By: #### C BCNO, BMP, MG #### [facility] [address] [place] [address] [place] ALP [Catalytic activity/Vol] 97 U/L Normal 34-104 [facility] Comment on above: Performed By: #### C BCNO, BMP, MG #### [facility] [address] [place] [id number] [place] ALT [Catalytic activity/Vol] 8 U/L Normal 7-52 [facility] Comment on above: Performed By: #### C BCNO, BMP, MG #### [facility] [address] [place] [id number] [place] Anion gap [Moles/Vol] 10.5 mmol/L Normal 6.0-15.0 Th e [facility] Comment on above: Performed By: #### C BCNO, BMP, MG #### [facility] [address] [place] [id number] [place] AST [Catalytic activity/Vol] 11 U/L Low 13-39 [facility] Comment on above: Performed By: #### C BCNO, BMP, MG #### [facility] [address] Bilirubin [Mass/Vol] 0.8 mg/dL Normal 0.3-1.0 [facility] Comment on above: Performed By: #### C BCNO, BMP, MG #### [facility] [address] Calcium [Mass/Vol] 8.7 mg/dL Normal 8.6-10.3 [facility] Comment on above: Performed By: #### C BCNO, BMP, MG #### [address] Chloride [Moles/Vol] 108 mmol/L High 98-107 [facility] Comment on above: Performed By: #### C BCNO, BMP, MG #### [address] CO2 [Moles/Vol] 28.1 mmol/L Normal 21.0-31.0 [facility] Comment on above: Performed By: #### C BCNO, BMP, MG #### [place] [address] [place] Creatinine [Mass/Vol] 1.10 mg/dL Normal 0.70-1.30 [facility] Comment on above: Performed By: #### C BCNO, BMP, MG #### [address] GFR/1.73 sq M.predicted MDRD (S/P/Bld) [Vol rate/Area] mL/min/{1.73_m2} Normal [facility] Comment on above: Performed By: #### C BCNO, BMP, MG #### [place] [address] [place] Globulin (S) [Mass/Vol] 2.1 g/dL Normal T he [facility] Comment on above: Performed By: #### C BCNO, BMP, MG #### [place] [address] [place] Glucose [Mass/Vol] 129 mg/dL High 70-100 [facility] Comment on above: Result Comment: [place] Glucose Reference Range is dependent on time and content of last meal. Glucose of more than 200 mg/dL in a nonstressed, ambulatory subject supports the diagnosis of Diabetes Mellitus. ADA recommended reference range Performed By: #### C BCNO, BMP, MG #### [facility] [address] Potassium [Moles/Vol] 4.6 mmol/L Normal 3.5-5.1 [facility] Comment on above: Performed By: #### C BCNO, BMP, MG #### [facility] [address] [place] [id number] [facility] Protein [Mass/Vol] 6.0 g/dL Low 6.4-8.9 [facility] Comment on above: Performed By: #### C BCNO, BMP, MG #### [facility] [address] [place] [id number] [facility] Sodium [Moles/Vol] 142 mmol/L Normal 136-145 [facility] Comment on above: Performed By: #### C BCNO, BMP, MG #### [facility] [address] [place] [id number] [place] Urea nitrogen [Mass/Vol] 31 mg/dL High 7-25 [facility] Comment on above: Performed By: #### C BCNO, BMP, MG #### [facility] [address] [place] [id number] [facility] Comprehensive metabolic pane [facility] 02-27-2024 Albumin [Mass/Vol] 3.9 g/dL 3.5 - 5.7 g/dL [facility] Albumin/Globulin [Mass ratio] 1.9 {ratio} [facility] ALP [Catalytic activity/Vol] 97 U/L 34 - 104 U/L [facility] ALT [Catalytic activity/Vol] 8 U/L 7 - 52 U/L [facility] Anion gap [Moles/Vol] 10.5 mmol/L 6.0 - 15.0 meq/L [facility] AST [Catalytic activity/Vol] 11 U/L Low 13 - 39 U/L [facility] Bilirubin [Mass/Vol] 0.8 mg/dL 0.3 - 1 .0 mg/dL [facility] Calcium [Mass/Vol] 8.7 mg/dL 8.6 - 10. 3 mg/dL [facility] Chloride [Moles/Vol] 108 mmol/L High 98 - 10 7 mmol/L [facility] CO2 [Moles/Vol] 28.1 mmol/L 21.0 - 31.0 mmol/L [facility] Creatinine (U) [Mass/Vol] 1.1 mg/dL 0.70 - 1.30 mg/dL [facility] ESTIMATED GFR mL/Min [facility] Globulin (S) [Mass/Vol] 2.1 g/dL [facility] Glucose [Mass/Vol] 129 mg/dL High 70 - 100 mg/dL [facility] Comment on above: Random Glucose Refer ence Range is dependent on time and content of last meal. Glucose of more than 200 mg/dL in a nonstressed, ambulatory subject supports the diagnosis of Diabetes Mellitus. ADA recommended reference range Potassium [Moles/Vol] 4.6 mmol/L 3.5 - 5.1 mmol/L [facility] Protein [Mass/Vol] 6 g/dL Low 6.4 - 8.9 g/dL [facility] Sodium [Moles/Vol] 142 mmol/L 136 - 145 mmol/L [facility] Urea nitrogen [Mass/Vol] 31 mg/dL High 7 - 25 mg/dL [facility] Creatinine [Mass/volume] in Serum or PlasmaOrdered By: Phani Ambrocio on 02-27-2024 Creatinine [Mass/Vol] Creatinine [Mass/volume] in Serum or Plasma 0.70-1.30 [facility] Creatinine [Mass/volume] in UrineOrdered By: Phani Ambrocio on 02-27-2024 Creatinine (U) [Mass/Vol] Creatinine [Mass/volume] in Urine [facility] Comment on above: No reference range e stablished Eosinophils Auto (Bld) [#/Vo l]Ordered By: Phani Ambrocio on 02-27-2024 Eosinophils (Bld) [#/Vol] Automated eosinophil count 0.0-0.45 [facility] Eosinophils/100 WBC Auto (Bl d)Ordered By: Phani Ambrocio on 02-27-2024 Eosinophils/100 WBC (Bld) Automated eosinophil % . [facility] Erythrocyte distribution wid th Auto (RBC) [Ratio]Ordered By: Phani Ambrocio on 02-27-2024 Erythrocyte distribution width (RBC) [Ratio] Erythrocyte distribution width [Ratio] by Automated count 12.0-14.8 [facility] Globulin Calc (S) [Mass/Vol] Ordered By: Phani Ambrocio on 02-27-2024 Globulin (S) [Mass/Vol] Serum globulin measurement by calculation (mass/volume) [facility] Glucose [Mass/volume] in Ser um or PlasmaOrdered By: Phani Ambrocio on 02-27-2024 Glucose [Mass/Vol] Glucose [Mass/volume ] in Serum or Plasma High 70-100 [facility] Comment on above: ADA recommended refe rence rangeRandom Glucose Reference Range is dependent on time and content of last meal. Glucose of more than 200 mg/dL in a nonstressed, ambulatory subject supports the diagnosis of Diabetes Mellitus. Hematocrit Auto (Bld) [Volum e fraction]Ordered By: Phani Ambrocio on 02-27-2024 Hematocrit (Bld) [Volume fraction] Hematocrit [Volume Fraction] of Blood by Automated count Low 38.8-50.0 [facility] Hemoglobin A1c/Hemoglobin.to david in BloodOrdered By: Phani Ambrocio on 02-27-2024 HbA1c (Bld) [Mass fraction] Hemoglobin A1c percentage High 4.3-5.6 [facility] Comment on above: Increased risk for d iabetes: 5.7 - 6.4diabetes: >6.4glycemic control for adults with diabetes: <7.0 Hemoglobin [Mass/volume] in BloodOrdered By: Phani Ambrocio on 02-27-2024 Hemoglobin (Bld) [Mass/Vol] Hemoglobin [Mass/volume] in Blood Low 13.0-17.0 [facility] Leukocytes [#/volume] correc marimar for nucleated erythrocytes in Blood by Automated counOrdered By: Phani Ambrocio on 02-27-2024 WBC corrected for nucl RBC Auto (Bld) [#/Vol] Leukocytes [#/volume] corrected for nucleated erythrocytes in Blood by Automated coun 4.1-10.5 [facility] Lipid 1996 panelon Cholesterol [Mass/Vol] 111 mg/dL Low 140 - 200 mg/dL [facility] Comment on above: Chol less than 200 m g/dl low risk Chol 201-239 mg/dl borderline risk Chol 240 mg/dl and greater high risk Cholesterol in HDL [Mass/Vol] 53 mg/dL 23 - 92 mg/dL [facility] Comment on above: HDL CHOL ATP-III CLA SSIFICATION Cardiovascular Risk HDL > or equal to 60 mg/dL LOW HDL < 40 mg/dL HIGH Cholesterol.total/Janeen sterol in HDL [Mass ratio] 2.1 {ratio} NINF - 5.0 [facility] LDL CHOLESTEROL,CALCULATED 48 mg/dL 0 - 100 mg/dL [facility] Comment on above: LDL ATP III CLASSIFI CATION LDL less than 100 mg/dL Optimal LDL 100-129 mg/dL Near or above optimal LDL 130-159 mg/dL Borderline high LDL 160-189 mg/dL High LDL greater than 189 mg/dL Very high TRIGLYCERIDE W/REFLEX 49 mg/dL 0 - 14 9 mg/dL [facility] Comment on above: TRIG ATP III CLASSIF ICATION TRIG less than 150 mg/dL Normal TRIG 150-199 mg/dL Borderline high TRIG 200-500 mg/dL High TRIG greater than 500 mg/dL Very high Standard traceable to the Center for Disease Conrtrol and Prevention (CDC) test method. VLDL CHOLESTEROL 9 mg/dL [facility] Lipid Panelon 02-27-2024 Cholesterol [Mass/Vol] 111 mg/dL Low 140-200 Th e [facility] Comment on above: Result Comment: Chol less than 200 mg/dl low risk Chol 201-239 mg/dl borderline risk Chol 240 mg/dl and greater high risk Performed By: #### C BCNO, BMP, MG #### [facility] [address] [place] [id number] [place] Cholesterol in HDL [Mass/Vol] 53 mg/dL Normal 23-92 [facility] Comment on above: Result Comment: HDL CHOL ATP-III CLASSIFICATION Cardiovascular Risk HDL > or equal to 60 mg/dL LOW HDL < 40 mg/dL HIGH Performed By: #### C BCNO, BMP, MG #### [facility] [address] [place] [address] [place] Cholesterol.total/Janeen sterol in HDL [Mass ratio] 2.1 {ratio} Normal <5.0 [facility] Comment on above: Result Comment: PERF ORMED BY: [place] [address] PATHOLOGIST LABEL FOLDER JOSUE DAMON M.D. Performed By: #### C BCNO, BMP, MG #### [address] LDL Cholesterol,Calculated 48 mg/dL Normal 0-100 [facility] Comment on above: Result Comment: LDL ATP III CLASSIFICATION LDL less than 100 mg/dL Optimal LDL 100-129 mg/dL Near or above optimal LDL 130-159 mg/dL Borderline high LDL 160-189 mg/dL High LDL greater than 189 mg/dL Very high Performed By: #### C BCNO, BMP, MG #### [address] Triglyceride w/Reflex 49 mg/dL Normal 0-149 [facility] Comment on above: Result Comment: TRIG ATP III CLASSIFICATION TRIG less than 150 mg/dL Normal TRIG 150-199 mg/dL Borderline high TRIG 200-500 mg/dL High TRIG greater than 500 mg/dL Very high Standard traceable to the Center for Disease Conrtrol and Prevention (CDC) test method. Performed By: #### C BCNO, BMP, MG #### [address] VLDL CHOLESTEROL 9 mg/dL Normal [facility] Comment on above: Performed By: #### C BCNO, BMP, MG #### [address] Lymphocytes Auto (Bld) [#/Vo l]Ordered By: Phani Ambrocio on 02-27-2024 Lymphocytes (Bld) [#/Vol] Lymphocytes [#/volume] in Blood by Automated count 1.00-4.8 [facility] Lymphocytes/100 WBC Auto (Bl d)Ordered By: Phani Ambrocio on 02-27-2024 Lymphocytes/100 WBC (Bld) Lymphocytes/100 leukocytes in Blood by Automated count . [facility] MCH Auto (RBC) [Entitic mass ]Ordered By: Phani Ambrocio on 02-27-2024 MCH (RBC) [Entitic mass] MCH [Entitic mass] by Automated count 27.5-35.2 [facility] MCHC Auto (RBC) [Mass/Vol]Or dered By: Phani Ambrocio on 02-27-2024 MCHC (RBC) [Mass/Vol] MCHC [Mass/volume] by Automated count 32.5-35.6 [facility] MCV Auto (RBC) [Entitic vol] Ordered By: Phani Ambrocio on 02-27-2024 MCV (RBC) [Entitic vol] MCV [Entitic vol ume] by Automated count 83.5-101 [facility] MicroAlb Creat Ratio,Uon Albumin DL <= 20 mg/L (U) [Mass/Vol] 3.2 mg/dL High 0.0-1.8 [facility] Comment on above: Performed By: #### G LULS #### Point of Care testing , Creatinine, Urine (Random) 109.00 mg/dL Normal [facility] Comment on above: Result Comment: No r eference range established Performed By: #### G LULS #### Point of Care testing , Microalbumin/Creatinine Ratio 29.4 mg/g Normal 0.0-30.0 [facility] Comment on above: Result Comment: 30-3 00 mg/g indicates an increased risk for diabetic nephropathy. Greater than 300 mg/g is consistent with clinical nephropathy. (Am. J. Kidney Disease 1995, 25:107) PERFORMED BY: [address] [place] [address] PATHOLOGIST LABEL FOLDER JOSUE DAMON M.D. Performed By: #### G LULS #### Point of Care testing , Microalbumin [Mass/volume] i n UrineOrdered By: Phani Ambrocio on 02-27-2024 Albumin DL <= 20 mg/L (U) [Mass/Vol] Microalbumin [Mass/volume] in Urine High 0.0-1.8 [facility] Microalbumin/Creatinine rati o panel (U)on 02-27-2024 Albumin [Mass/Vol] 3.2 mg/dL High 0.0 - 1.8 mg/dL [facility] Creatinine spec 2 (U) [Mass/Vol] 109 mg/dL [facility] Comment on above: No reference range e stablished Interpretation and review of laboratory results Abnormal [facility] MICROALBUMIN/CREATININE RATIO 29.4 mg/g 0.0 - 30.0 mg/g [facility] Comment on above: 30-300 mg/g indicate s an increased risk for diabetic nephropathy. Greater than 300 mg/g is consistent with clinical nephropathy. (Am. J. Kidney Disease 1995, 25:107) [facility] Monocytes Auto (Bld) [#/Vol] Ordered By: Phani Ambrocio on 02-27-2024 Monocytes (Bld) [#/Vol] Automated blood monocyte count 0.0-0.8 [facility] Monocytes/100 WBC Auto (Bld) Ordered By: Phani Ambrocio on 02-27-2024 Monocytes/100 WBC (Bld) Automated monocyte % . [facility] Neutrophils Auto (Bld) [#/Vo l]Ordered By: Phani Ambrocio on 02-27-2024 Neutrophils (Bld) [#/Vol] Neutrophils [#/volume] in Blood by Automated count 1.8-7.7 [facility] Neutrophils/100 WBC Auto (Bl d)Ordered By: Phani Ambrocio on 02-27-2024 Neutrophils/100 WBC (Bld) Automated neutrophil % . [facility] No Panel Informationon 02-26 Interpretation and review of laboratory results Abnormal [facility] No Panel InformationOrdered By: Phani Ambrocio on 02-27-2024 Estimated GFR (CKD-EPI) > 60.0 mL/Min [facility] Creatinine Clearance (Chem N/A [facility] Nucleated erythrocytes [Pres ence] in Blood by Automated countOrdered By: Phani Ambrocio on 02-27-2024 Nucleated RBC Auto Ql (Bld) Nucleated erythrocytes [Presence] in Blood by Automated count 0-0.5 [facility] Platelet mean volume Auto (B ld) [Entitic vol]Ordered By: Phani Ambrocio on 02-27-2024 Platelet mean volume (Bld) [Entitic vol] Platelet mean volume [Entitic volume] in Blood by Automated count 6.6-10.1 [facility] Platelets Auto (Bld) [#/Vol] Ordered By: Phani Ambrocio on 02-27-2024 Platelets (Bld) [#/Vol] Platelets [#/vol ume] in Blood by Automated count 150-450 [facility] Potassium [Moles/volume] in Serum or PlasmaOrdered By: Phani Ambrocio on 02-27-2024 Potassium [Moles/Vol] Potassium [Moles/volume] in Serum or Plasma 3.5-5.1 [facility] Protein [Mass/volume] in Ser um or PlasmaOrdered By: Phani Ambrocio on 02-27-2024 Protein [Mass/Vol] Protein [Mass/volume ] in Serum or Plasma Low 6.4-8.9 [facility] RBC Auto (Bld) [#/Vol]Ordere d By: Phani Ambrocio on 02-27-2024 RBC (Bld) [#/Vol] Erythrocytes [#/volume] in Blood by Automated count 3.90-5.60 [facility] Serum or plasma albumin/glob ulin mass ratioOrdered By: Phani Ambrocio on 02-27-2024 Albumin/Globulin [Mass ratio] Serum or plasma albumin/globulin mass ratio [facility] Serum or plasma anion gap de terminationOrdered By: Phani Ambrocio on 02-27-2024 Anion gap [Moles/Vol] Serum or plasma an ion gap determination 6.0-15.0 [facility] Serum or plasma total choles terol/high density lipoprotein (HDL) cholesterol mass ratOrdered By: Phani Ambrocio on 02-27-2024 Cholesterol.total/Janeen sterol in HDL [Mass ratio] Serum or plasma total cholesterol/high density lipoprotein (HDL) cholesterol mass rat <5.0 [facility] Sodium [Moles/volume] in Ser um or PlasmaOrdered By: Phani Ambrocio on 02-27-2024 Sodium [Moles/Vol] Sodium [Moles/volume ] in Serum or Plasma 136-145 [facility] Triglyceride [Mass/volume] i n Serum or PlasmaOrdered By: Phani Ambrocio on 02-27-2024 Triglyceride [Mass/Vol] Triglyceride [Mass/volume] in Serum or Plasma 0-149 [facility] Comment on above: TRIG ATP III CLASSIF ICATIONTRIG less than 150 mg/dL NormalTRIG 150-199 mg/dL Borderline highTRIG 200-500 mg/dL High TRIG greater than 500 mg/dL Very highStandard traceable to the Center for Disease Conrtrol and Prevention (CDC) test method. Urea nitrogen [Mass/volume] in Serum or PlasmaOrdered By: Phani Ambrocio on 02-27-2024 Urea nitrogen [Mass/Vol] Urea nitrogen [Mass/volume] in Serum or Plasma High 7-25 [facility] Urine microalbumin/creatinin e mass ratioOrdered By: Phani Ambrocio on 02-27-2024 Albumin/Creatinine DL <= 20 mg/L (U) [Mass ratio] Urine microalbumin/creatini ne mass ratio 0.0-30.0 [facility] Comment on above: 30-300 mg/g indicate s an increased risk for diabetic nephropathy. Greater than 300 mg/g is consistent with clinical nephropathy. (Am. J. Kidney Disease 1995, 25:107) WBC Auto (Bld) [#/Vol]Ordere d By: Phani Ambrocio on 02-27-2024 WBC (Bld) [#/Vol] Leukocytes [#/volume ] in Blood by Automated count 4.1-10.5 [facility] Hemoglobin a1c with eagon Glucose [Mass/Vol] 128 mg/dL [facility] HbA1c (Bld) [Mass fraction] 6.1 % High 4.3 - 5.6 % [facility] Comment on above: Increased risk for d iabetes: 5.7 - 6.4 diabetes: >6.4 glycemic control for adults with diabetes: <7.0 Interpretation and review of laboratory results Abnormal [facility] FASTING. JKW [facility] A1C with Estimated Average G luon 11-16-2023 Glucose [Mass/Vol] 128 mg/dL Normal [facility] Comment on above: Order Comment: FASTI NG. [facility] Result Comment: PERF ORMED BY: [place] [address] PATHOLOGIST LABEL FOLDER CECILIA CARBONE M.D. Performed By: #### C BCNO, BMP, MG #### [address] HbA1c (Bld) [Mass fraction] 6.1 % High 4.3-5.6 [facility] Comment on above: Order Comment: FASTI NG. JKW Result Comment: Incr eased risk for diabetes: 5.7 - 6.4 diabetes: >6.4 glycemic control for adults with diabetes: <7.0 Performed By: #### C BCNO, BMP, MG #### [address] Alanine aminotransferase [En zymatic activity/volume] in Serum or PlasmaOrdered By: Phani Ambrocio on 11-16-2023 ALT [Catalytic activity/Vol] 9 U/L Normal 7-52 [facility] Comment on above: Order Comment: FASTI NG. JKW Performed By: #### C BCNO, BMP, MG #### [place] [address] [place] Albumin [Mass/volume] in Ser um or Plasma by Bromocresol green (BCG) dye binding methoOrdered By: Phani Ambrocio on 11-16-2023 Albumin BCG dye [Mass/Vol] 4.1 g/dL 3.5-5.7 [facility] Alkaline phosphatase [Enzyma tic activity/volume] in Serum or PlasmaOrdered By: Phani Ambrocio on 11-16-2023 ALP [Catalytic activity/Vol] 90 U/L Normal 34-104 [facility] Comment on above: Order Comment: FASTI NG. JKW Performed By: #### C BCNO, BMP, MG #### [place] [address] [place] Aspartate aminotransferase [ Enzymatic activity/volume] in Serum or PlasmaOrdered By: Phani Ambrocio on 11-16-2023 AST [Catalytic activity/Vol] 13 U/L Normal 13-39 [facility] Comment on above: Order Comment: FASTI NG. JKW Performed By: #### C BCNO, BMP, MG #### [place] [address] [place] Automated basophil %Ordered By: Phani Ambrocio on 11-16-2023 Basophils/100 WBC (Bld) 0.4 % Normal . [facility] Comment on above: Order Comment: FASTI NG. JKW Performed By: #### C BCNO, BMP, MG #### [address] Automated basophil countOrde red By: Phani Ambrocio on 11-16-2023 Basophils (Bld) [#/Vol] 0.0 10*3/uL Normal 0.0-0.2 [facility] Comment on above: Order Comment: FASTI NG. JKW Result Comment: PERF ORMED BY: [place] [address] PATHOLOGIST LABEL FOLDER CECILIA CARBONE M.D. Performed By: #### C BCNO, BMP, MG #### [address] Automated blood monocyte cou ntOrdered By: Phani Ambrocio on 11-16-2023 Monocytes (Bld) [#/Vol] 0.7 10*3/uL Normal 0.0-0.8 [facility] Comment on above: Order Comment: FASTI NG. JKW Performed By: #### C BCNO, BMP, MG #### [address] Automated eosinophil %Ordere d By: Phani Ambrocio on 11-16-2023 Eosinophils/100 WBC (Bld) 0.7 % Normal . [facility] Comment on above: Order Comment: FASTI NG. JKW Performed By: #### C BCNO, BMP, MG #### [address] Automated eosinophil countOr dered By: Phani Ambrocio on 11-16-2023 Eosinophils (Bld) [#/Vol] 0.0 10*3/uL Normal 0.0-0.45 [facility] Comment on above: Order Comment: FASTI NG. JKW Performed By: #### C BCNO, BMP, MG #### [address] Automated monocyte %Ordered By: Phani Ambrocio on 11-16-2023 Monocytes/100 WBC (Bld) 11.0 % Normal . [facility] Comment on above: Order Comment: FASTI NG. JKW Performed By: #### C BCNO, BMP, MG #### [facility] [address] Automated neutrophil %Ordere d By: Phani Ambrocio on 11-16-2023 Neutrophils/100 WBC (Bld) 63.2 % Normal . [facility] Comment on above: Order Comment: FASTI NG. JKW Performed By: #### C BCNO, BMP, MG #### [facility] [address] Bilirubin.total [Mass/volume ] in Serum or PlasmaOrdered By: Phani Ambrocio on 11-16-2023 Bilirubin [Mass/Vol] 1.1 mg/dL High 0.3-1.0 [facility] Comment on above: Order Comment: FASTI NG. JKW Performed By: #### C BCNO, BMP, MG #### [facility] [address] CBC W Auto Differential pane l (Bld)on 11-16-2023 Basophils (Bld) [#/Vol] 0.0 10*3/uL 0.0 - 0.2 10*3/uL [facility] Basophils/100 WBC Manual cnt (Syn fld) 0.4 % . [facility] Eosinophils (Bld) [#/Vol] 0.0 10*3/uL 0.0 - 0.45 10*3/uL [facility] Eosinophils/100 WBC Manual cnt (Syn fld) 0.7 % . [facility] Erythrocyte distribution width (RBC) [Ratio] 14.3 % 12.0 - 14.8 % [facility] Hematocrit (Bld) [Volume fraction] 38.9 % 38.8 - 50.0 % [facility] Hemoglobin (Bld) [Mass/Vol] 13.0 g/dL 13.0 - 17.0 g/dL [facility] Lymphocytes (Bld) [#/Vol] 1.5 10*3/uL 1.00 - 4.8 10*3/uL [facility] Lymphocytes/100 WBC Manual cnt (Syn fld) 24.7 % . [facility] MCH (RBC) [Entitic mass] 31.3 pg 27.5 - 35.[address] [facility] MCHC (RBC) [Mass/Vol] 33.4 g/dL 32.5 - 35.6 g/dL [facility] MCV (RBC) [Entitic vol] 93.9 fL 83.5 - [address] [facility] Monocytes (Bld) [#/Vol] 0.7 10*3/uL 0.0 - 0.8 10*3/uL [facility] Monocytes+Macrophages/1 00 WBC Manual cnt (Syn fld) 11.0 % . [facility] Neutrophils (Bld) [#/Vol] 3.8 10*3/uL 1.8 - 7.7 10*3/uL [facility] Neutrophils/100 WBC Manual cnt (Syn fld) 63.2 % . [facility] NRBC 0.0 /100{WBC} 0 - 0.5 /100{WBC} [facility] Platelet mean volume (Bld) [Entitic vol] 9.2 fL 6.6 - 10.[address] [facility] Platelets (Bld) [#/Vol] 174 10*3/uL 150 - 450 10*3/uL [facility] RBC LM.HPF (Urine sed) [#/Area] 4.14 /[HPF] 3.90 - 5.60 [facility] WBC (Bld) [#/Vol] 6.1 10*3/uL 4.1 - 10.5 10*3/uL [facility] WBC LM.HPF (Urine sed) [#/Area] 6.1 10*3/uL 4.1 - 10.5 10*3/uL [facility] FASTING. MeronKW [facility] Calcium [Mass/volume] in Ser um or PlasmaOrdered By: Phani Ambrocio on 11-16-2023 Calcium [Mass/Vol] 9.0 mg/dL Normal 8.6-10.3 [facility] Comment on above: Order Comment: ISI MORROW. SONYW Performed By: #### C BCNO, BMP, MG #### [address] Carbon dioxide, total [Moles /volume] in Serum or PlasmaOrdered By: Phani Ambrocio on 11-16-2023 CO2 [Moles/Vol] 28.0 mmol/L Normal 21.0-31.0 [facility] Comment on above: Order Comment: ISI ChanceKW Performed By: #### C BCNO, BMP, MG #### [facility] [address] [place] [id number] [place] Chloride [Moles/volume] in S grady or PlasmaOrdered By: Phani Ambrocio on 11-16-2023 Chloride [Moles/Vol] 107 mmol/L Normal 98-107 [facility] Comment on above: Order Comment: ISI ChanceKW Performed By: #### C BCNO, BMP, MG #### [facility] [address] [place] [id number] [place] Cholesterol [Mass/volume] in Serum or PlasmaOrdered By: Phani Ambrocio on 11-16-2023 Cholesterol [Mass/Vol] 116 mg/dL Low 140-200 [facility] Comment on above: Chol less than 200 m g/dl low riskChol 201-239 mg/dl borderline riskChol 240 mg/dl and greater high risk Order Comment: ISI ChanceKW Result Comment: Chol less than 200 mg/dl low risk Chol 201-239 mg/dl borderline risk Chol 240 mg/dl and greater high risk Performed By: #### C BCNO, BMP, MG #### [facility] [address] [place] [id number] [place] Cholesterol in LDL Calc [Mas s/Vol]Ordered By: Phani Ambrocio on 11-16-2023 Cholesterol in LDL [Mass/Vol] 51 mg/dL 0-100 [facility] Comment on above: LDL ATP III CLASSIFI CATIONLDL less than 100 mg/dL OptimalLDL 100-129 mg/dL Near or above optimalLDL 130-159 mg/dL Borderline highLDL 160-189 mg/dL HighLDL greater than 189 mg/dL Very high Cholesterol in VLDL Calc [Ma ss/Vol]Ordered By: Phani Ambrocio on 11-16-2023 Cholesterol in VLDL [Mass/Vol] 14 mg/dL [facility] Complete Blood Count Auto Di ffon 11-16-2023 Mean Corpuscular HGB Conc 33.4 g/dL Normal 32.5-35.6 [facility] Comment on above: Order Comment: FASTI NG. JKW Performed By: #### C BCNO, BMP, MG #### [address] NRBC% 0.0 /100{WBC} Normal 0-0.5 [facility] Comment on above: Order Comment: FASTI NG. JKW Performed By: #### C BCNO, BMP, MG #### [address] Comprehensive Metabolic Pane stephanie 11-16-2023 Albumin [Mass/Vol] 4.1 g/dL Normal 3.5-5.7 [facility] Comment on above: Order Comment: FASTI NG. JKW Performed By: #### C BCNO, BMP, MG #### [address] GFR/1.73 sq M.predicted MDRD (S/P/Bld) [Vol rate/Area] mL/min/{1.73_m2} Normal [facility] Comment on above: Order Comment: FASTI NG. JKW Performed By: #### C BCNO, BMP, MG #### [address] Creatinine [Mass/volume] in Serum or PlasmaOrdered By: Phani Ambrocio on 11-16-2023 Creatinine [Mass/Vol] 1.21 mg/dL Normal 0.70-1.30 [facility] Comment on above: Order Comment: FASTI NG. JKW Performed By: #### C BCNO, BMP, MG #### [facility] [address] [place] [address] Creatinine [Mass/volume] in UrineOrdered By: Phani Ambrocio on 11-16-2023 Creatinine (U) [Mass/Vol] 143.00 mg/dL [facility] Comment on above: No reference range e stablished Erythrocyte distribution wid th [Ratio] by Automated countOrdered By: Phani Ambrocio on 11-16-2023 Erythrocyte distribution width (RBC) [Ratio] 14.3 % Normal 12.0-14.8 [facility] Comment on above: Order Comment: FASTI NG. JKW Performed By: #### C BCNO, BMP, MG #### [facility] [address] [place] [id number] [place] Erythrocytes [#/volume] in B lood by Automated countOrdered By: Phani Ambrocio on 11-16-2023 RBC (Bld) [#/Vol] 4.14 10*6/uL Normal 3.90-5.60 [facility] Comment on above: Order Comment: FASTI NG. JKW Performed By: #### C BCNO, BMP, MG #### [facility] [address] [place] [address] [place] Glucose [Mass/volume] in Ser um or PlasmaOrdered By: Phani Ambrocio on 11-16-2023 Glucose [Mass/Vol] 107 mg/dL High 70-100 [facility] Comment on above: ADA recommended refe rence rangeRandom Glucose Reference Range is dependent on time and content of last meal. Glucose of more than 200 mg/dL in a nonstressed, ambulatory subject supports the diagnosis of Diabetes Mellitus. Order Comment: FASTI NG. JKW Result Comment: [place] om Glucose Reference Range is dependent on time and content of last meal. Glucose of more than 200 mg/dL in a nonstressed, ambulatory subject supports the diagnosis of Diabetes Mellitus. ADA recommended reference range Performed By: #### C BCNO, BMP, MG #### [facility] [address] [place] [id number] [place] Hematocrit [Volume Fraction] of Blood by Automated countOrdered By: Phani Ambrocio on 11-16-2023 Hematocrit (Bld) [Volume fraction] 38.9 % Normal 38.8-50.0 [facility] Comment on above: Order Comment: FASTI NG. JKW Performed By: #### C BCNO, BMP, MG #### [facility] [address] [place] [id number] [place] Hemoglobin [Mass/volume] in BloodOrdered By: Phani Ambrocio on 11-16-2023 Hemoglobin (Bld) [Mass/Vol] 13.0 g/dL Normal 13.0-17.0 [facility] Comment on above: Order Comment: ISI CARDOZAW Performed By: #### C BCNO, BMP, MG #### [facility] [address] [place] [address] [place] Leukocytes [#/volume] correc marimar for nucleated erythrocytes in Blood by Automated counOrdered By: Phani Ambrocio on 11-16-2023 WBC corrected for nucl RBC Auto (Bld) [#/Vol] 6.1 10*3/uL 4.1-10.5 [facility] Leukocytes [#/volume] in Blo od by Automated countOrdered By: Phani Ambrocio on 11-16-2023 WBC (Bld) [#/Vol] 6.1 10*3/uL Normal 4.1-10.5 [facility] Comment on above: Order Comment: SII CARDOZAW Performed By: #### C BCNO, BMP, MG #### [facility] [address] Lipid Panelon 11-16-2023 LDL Cholesterol,Calculated 51 mg/dL Normal 0-100 [facility] Comment on above: Order Comment: ISI PRESCOTT Result Comment: LDL ATP III CLASSIFICATION LDL less than 100 mg/dL Optimal LDL 100-129 mg/dL Near or above optimal LDL 130-159 mg/dL Borderline high LDL 160-189 mg/dL High LDL greater than 189 mg/dL Very high Performed By: #### C BCNO, BMP, MG #### [facility] [address] Triglyceride w/Reflex 70 mg/dL Normal 0-149 [facility] Comment on above: Order Comment: ISI PRESCOTT Result Comment: TRIG ATP III CLASSIFICATION TRIG less than 150 mg/dL Normal TRIG 150-199 mg/dL Borderline high TRIG 200-500 mg/dL High TRIG greater than 500 mg/dL Very high Standard traceable to the Center for Disease Conrtrol and Prevention (CDC) test method. Performed By: #### C BCNO, BMP, MG #### [facility] [address] VLDL CHOLESTEROL 14 mg/dL Normal [facility] Comment on above: Order Comment: FASTI NG. JKW Performed By: #### C BCNO, BMP, MG #### [address] Lymphocytes [#/volume] in Bl ood by Automated countOrdered By: Phani Ambrocio on 11-16-2023 Lymphocytes (Bld) [#/Vol] 1.5 10*3/uL Normal 1.00-4.8 [facility] Comment on above: Order Comment: FASTI NG. JKW Performed By: #### C BCNO, BMP, MG #### [address] Lymphocytes/100 leukocytes i n Blood by Automated countOrdered By: Phani Ambrocio on 11-16-2023 Lymphocytes/100 WBC (Bld) 24.7 % Normal . [facility] Comment on above: Order Comment: FASTI NG. JKW Performed By: #### C BCNO, BMP, MG #### [address] MCH [Entitic mass] by Automa marimar countOrdered By: Phani Ambrocio on 11-16-2023 MCH (RBC) [Entitic mass] 31.3 pg Normal 27.5-35.2 [facility] Comment on above: Order Comment: FASTI NG. JKW Performed By: #### C BCNO, BMP, MG #### [address] MCHC Auto (RBC) [Mass/Vol]Or dered By: Phani Ambrocio on 11-16-2023 MCHC (RBC) [Mass/Vol] 33.4 g/dL 32.5-35.6 [facility] MCV [Entitic volume] by Auto mated countOrdered By: Phani Ambrocio on 11-16-2023 MCV (RBC) [Entitic vol] 93.9 fL Normal 83.5-101 [facility] Comment on above: Order Comment: FASTI NG. JKW Performed By: #### C BCNO, BMP, MG #### [address] MicroAlb Creat Ratio,Uon Creatinine, Urine (Random) 143.00 mg/dL Normal [facility] Comment on above: Order Comment: ISI ChanceKW Result Comment: No r eference range established Performed By: #### C BCNO, BMP, MG #### [facility] [address] Microalbumin/Creatinine Ratio 18.2 mg/g Normal 0.0-30.0 [facility] Comment on above: Order Comment: ISI MORROW. JKW Result Comment: 30-3 00 mg/g indicates an increased risk for diabetic nephropathy. Greater than 300 mg/g is consistent with clinical nephropathy. (Am. J. Kidney Disease 1994, 25:107) PERFORMED BY: [place] [address] PATHOLOGIST LABEL FOLDER CECILIA CARBONE M.D. Performed By: #### C BCNO, BMP, MG #### [facility] [address] [place] [address] Microalbumin [Mass/volume] i n UrineOrdered By: Phani Ambrocio on 11-16-2023 Albumin DL <= 20 mg/L (U) [Mass/Vol] 2.6 mg/dL High 0.0-1.8 [facility] Comment on above: Order Comment: ISI DYSON JKW Performed By: #### C BCNO, BMP, MG #### [place] [address] [place] Microalbumin/Creatinine rati o panel (U)on 11-16-2023 Albumin [Mass/Vol] 2.6 mg/dL High 0.0 - 1.8 mg/dL [facility] Creatinine spec 2 (U) [Mass/Vol] 143.00 mg/dL [facility] Comment on above: No reference range e stablished Interpretation and review of laboratory results Abnormal [facility] MICROALBUMIN/CREATININE RATIO 18.2 mg/g 0.0 - 30.0 mg/g [facility] Comment on above: 30-300 mg/g indicate s an increased risk for diabetic nephropathy. Greater than 300 mg/g is consistent with clinical nephropathy. (Am. J. Kidney Disease 1995, 25:107) FASTING. JKW [facility] Neutrophils [#/volume] in Bl ood by Automated countOrdered By: Phani Ambrocio on 11-16-2023 Neutrophils (Bld) [#/Vol] 3.8 10*3/uL Normal 1.8-7.7 [facility] Comment on above: Order Comment: FASTI NG. JKW Performed By: #### C BCNO, BMP, MG #### [facility] [address] No Panel InformationOrdered By: Phani Ambrocio on 11-16-2023 Estimated GFR (CKD-EPI) > 60.0 mL/Min [facility] Creatinine Clearance (Chem N/A [facility] Nucleated erythrocytes [Pres ence] in Blood by Automated countOrdered By: Phani Ambrocio on 11-16-2023 Nucleated RBC Auto Ql (Bld) 0.0 /100{WBC} 0-0.5 [facility] Platelet mean volume [Entiti c volume] in Blood by Automated countOrdered By: Phani Ambrocio on 11-16-2023 Platelet mean volume (Bld) [Entitic vol] 9.2 fL Normal 6.6-10.1 [facility] Comment on above: Order Comment: FASTI NG. JKW Performed By: #### C BCNO, BMP, MG #### [facility] [address] [place] [address] Platelets [#/volume] in Bloo d by Automated countOrdered By: Phani Ambrocio on 11-16-2023 Platelets (Bld) [#/Vol] 174 10*3/uL Normal 150-450 [facility] Comment on above: Order Comment: FASTI NG. JKW Performed By: #### C BCNO, BMP, MG #### [facility] [address] [place] [address] Potassium [Moles/volume] in Serum or PlasmaOrdered By: Phani Ambrocio on 11-16-2023 Potassium [Moles/Vol] 4.9 mmol/L Normal 3.5-5.1 [facility] Comment on above: Order Comment: FASTI NG. JKW Performed By: #### C BCNO, BMP, MG #### [address] Protein [Mass/volume] in Ser um or PlasmaOrdered By: Phani Ambrocio on 11-16-2023 Protein [Mass/Vol] 6.3 g/dL Low 6.4-8.9 [facility] Comment on above: Order Comment: FASTI NG. JKW Performed By: #### C BCNO, BMP, MG #### [address] Serum globulin measurement b y calculation (mass/volume)Ordered By: Phani Ambrocio on 11-16-2023 Globulin (S) [Mass/Vol] 2.2 g/dL Normal [facility] Comment on above: Order Comment: FASTI NG. JKW Performed By: #### C BCNO, BMP, MG #### [address] Serum or plasma albumin/glob ulin mass ratioOrdered By: Phani Ambrocio on 11-16-2023 Albumin/Globulin [Mass ratio] 1.9 {ratio} Normal [facility] Comment on above: Order Comment: FASTI NG. JKW Performed By: #### C BCNO, BMP, MG #### [address] Serum or plasma anion gap de terminationOrdered By: Phani Ambrocio on 11-16-2023 Anion gap [Moles/Vol] 11.9 mmol/L Normal 6.0-15.0 [facility] Comment on above: Order Comment: FASTI NG. JKW Performed By: #### C BCNO, BMP, MG #### [address] Serum or plasma high density lipoprotein (HDL) cholesterol measurementOrdered By: Phani Ambrocio on 11-16-2023 Cholesterol in HDL [Mass/Vol] 51 mg/dL Normal 23-92 [facility] Comment on above: HDL CHOL ATP-III CLA SSIFICATION Cardiovascular RiskHDL > or equal to 60 mg/dL LOWHDL < 40 mg/dL HIGH Order Comment: ISI MORROW. JKW Result Comment: HDL CHOL ATP-III CLASSIFICATION Cardiovascular Risk HDL > or equal to 60 mg/dL LOW HDL < 40 mg/dL HIGH Performed By: #### C BCMARCI, BMP, MG #### [facility] [address] [place] [address] Serum or plasma total choles terol/high density lipoprotein (HDL) cholesterol mass ratOrdered By: Phani Ambrocio on 11-16-2023 Cholesterol.total/Janeen sterol in HDL [Mass ratio] 2.3 {ratio} Normal <5.0 [facility] Comment on above: Order Comment: ISI ChanceKW Performed By: #### C BCMARCI, BMP, MG #### [address] Sodium [Moles/volume] in Ser um or PlasmaOrdered By: Phani Ambrocio on 11-16-2023 Sodium [Moles/Vol] 142 mmol/L Normal 136-145 [facility] Comment on above: Order Comment: ISI ChanceKW Performed By: #### C BCMARCI, BMP, MG #### [address] Thyroxine (T4) free [Mass/vo lume] in Serum or PlasmaOrdered By: Phani Ambrocio on 11-16-2023 Free T4 [Mass/Vol] 0.68 ng/dL Normal 0.61-1.12 [facility] Comment on above: Order Comment: ISI DYSON JKW Result Comment: PERF ORMED BY: [place] [address] PATHOLOGIST LABEL FOLDER CECILIA CARBONE M.D. Performed By: #### C BCMARCI, BMP, MG #### [facility] [address] [place] [address] Triglyceride [Mass/volume] i n Serum or PlasmaOrdered By: Phani Ambrocio on 11-16-2023 Triglyceride [Mass/Vol] 70 mg/dL 0-149 [facility] Comment on above: TRIG ATP III CLASSIF ICATIONTRIG less than 150 mg/dL NormalTRIG 150-199 mg/dL Borderline highTRIG 200-500 mg/dL High TRIG greater than 500 mg/dL Very highStandard traceable to the Center for Disease Conrtrol and Prevention (CDC) test method. Urea nitrogen [Mass/volume] in Serum or PlasmaOrdered By: Phani Ambrocio on 11-16-2023 Urea nitrogen [Mass/Vol] 20 mg/dL Normal - [facility] Comment on above: Order Comment: ISI CARDOZAW Performed By: #### C FRANNIE BHATTI, MG #### [address] Urine microalbumin/creatinin e mass ratioOrdered By: Phani Ambrocio on 11-16-2023 Albumin/Creatinine DL <= 20 mg/L (U) [Mass ratio] 18.2 mg/g 0.0-30.0 [facility] Comment on above: 30-300 mg/g indicate s an increased risk for diabetic nephropathy. Greater than 300 mg/g is consistent with clinical nephropathy. (Am. J. Kidney Disease 1995, 25:107) A1C with Estimated Average G brysonn 08-25-2023 Glucose [Mass/Vol] 131 mg/dL Normal [facility] Comment on above: Result Comment: PERF ORMED BY: [place] [address] PATHOLOGIST LABEL FOLDER CECILIA CARBONE M.D. Performed By: #### C FRANNIE BHATTI, MG #### [place] [address] [place] Alanine aminotransferase [En zymatic activity/volume] in Serum or PlasmaOrdered By: Phani Ambrocio on 08-25-2023 ALT [Catalytic activity/Vol] 10 U/L Normal - [facility] Comment on above: Performed By: #### C MAGY BMP, MG #### [place] [address] [place] Albumin [Mass/volume] in Ser um or Plasma by Bromocresol green (BCG) dye binding methoOrdered By: Phani Ambrocio on 08-25-2023 Albumin BCG dye [Mass/Vol] 4.2 g/dL 3.5-5.7 [facility] Alkaline phosphatase [Enzyma tic activity/volume] in Serum or PlasmaOrdered By: Phani Ambrocio on 08-25-2023 ALP [Catalytic activity/Vol] 92 U/L Normal 34-104 [facility] Comment on above: Performed By: #### C BCNO, BMP, MG #### [address] Aspartate aminotransferase [ Enzymatic activity/volume] in Serum or PlasmaOrdered By: Phani Ambrocio on 08-25-2023 AST [Catalytic activity/Vol] 14 U/L Normal 13-39 [facility] Comment on above: Performed By: #### C BCNO, BMP, MG #### [address] Automated basophil %Ordered By: Phani Ambrocio on 08-25-2023 Basophils/100 WBC (Bld) 0.3 % Normal . [facility] Comment on above: Performed By: #### C BCNO, BMP, MG #### [address] Automated basophil countOrde red By: Phani Ambrocio on 08-25-2023 Basophils (Bld) [#/Vol] 0.0 10*3/uL Normal 0.0-0.2 [facility] Comment on above: Result Comment: PERF ORMED BY: [place] [address] PATHOLOGIST LABEL FOLDER CECILIA CARBONE M.D. Performed By: #### C BCNO, BMP, MG #### [address] Automated blood monocyte cou ntOrdered By: Phani Ambrocio on 08-25-2023 Monocytes (Bld) [#/Vol] 0.6 10*3/uL Normal 0.0-0.8 [facility] Comment on above: Performed By: #### C BCNO, BMP, MG #### [address] Automated eosinophil %Ordere d By: Phani Ambrocio on 08-25-2023 Eosinophils/100 WBC (Bld) 1.2 % Normal . [facility] Comment on above: Performed By: #### C BCNO, BMP, MG #### [facility] [address] Automated eosinophil countOr dered By: Phani Ambrocio on 08-25-2023 Eosinophils (Bld) [#/Vol] 0.1 10*3/uL Normal 0.0-0.45 [facility] Comment on above: Performed By: #### C BCNO, BMP, MG #### [facility] [address] Automated monocyte %Ordered By: Phani Ambrocio on 08-25-2023 Monocytes/100 WBC (Bld) 9.9 % Normal . [facility] Comment on above: Performed By: #### C BCNO, BMP, MG #### [facility] [address] Automated neutrophil %Ordere d By: Phani Ambrocio on 08-25-2023 Neutrophils/100 WBC (Bld) 64.6 % Normal . [facility] Comment on above: Performed By: #### C BCNO, BMP, MG #### [facility] [address] Bilirubin.total [Mass/volume ] in Serum or PlasmaOrdered By: Phani Ambrocio on 08-25-2023 Bilirubin [Mass/Vol] 1.4 mg/dL High 0.3-1.0 [facility] Comment on above: Samples from patient s who have taken Naproxen have shown spurious elevation in Total Bilirubin levels. A metabolite of Naproxen, O-desmethylnaproxen, has been shown to interfere with the Jendrassik-Grof method for measuring Total Bilirubin. Result Comment: Samp les from patients who have taken Naproxen have shown spurious elevation in Total Bilirubin levels. A metabolite of Naproxen, O-desmethylnaproxen, has been shown to interfere with the Jendrassik-Grof method for measuring Total Bilirubin. Performed By: #### C BCNO, BMP, MG #### [facility] [address] [place] [address] [place] Calcium [Mass/volume] in Ser um or PlasmaOrdered By: Phani Ambrocio on 08-25-2023 Calcium [Mass/Vol] 9.0 mg/dL Normal 8.6-10.3 [facility] Comment on above: Performed By: #### C BCNO, BMP, MG #### [facility] [address] [place] [address] [place] Carbon dioxide, total [Moles /volume] in Serum or PlasmaOrdered By: Phani Ambrocio on 08-25-2023 CO2 [Moles/Vol] 26.9 mmol/L Normal 21.0-31.0 [facility] Comment on above: Performed By: #### C BCNO, BMP, MG #### [facility] [address] [place] [address] [place] Chloride [Moles/volume] in S grady or PlasmaOrdered By: Phani Ambrocio on 08-25-2023 Chloride [Moles/Vol] 106 mmol/L Normal 98-107 [facility] Comment on above: Performed By: #### C BCNO, BMP, MG #### [facility] [address] [place] [address] [place] Cholesterol [Mass/volume] in Serum or PlasmaOrdered By: Phani Ambrocio on 08-25-2023 Cholesterol [Mass/Vol] 106 mg/dL Low 140-200 [facility] Comment on above: Chol less than 200 m g/dl low riskChol 201-239 mg/dl borderline riskChol 240 mg/dl and greater high risk Result Comment: Chol less than 200 mg/dl low risk Chol 201-239 mg/dl borderline risk Chol 240 mg/dl and greater high risk Performed By: #### C BCNO, BMP, MG #### [facility] [address] [place] [address] [place] Cholesterol in LDL Calc [Mas s/Vol]Ordered By: Phani Ambrocio on 08-25-2023 Cholesterol in LDL [Mass/Vol] 46 mg/dL 0-100 [facility] Comment on above: LDL ATP III CLASSIFI CATIONLDL less than 100 mg/dL OptimalLDL 100-129 mg/dL Near or above optimalLDL 130-159 mg/dL Borderline highLDL 160-189 mg/dL HighLDL greater than 189 mg/dL Very high Cholesterol in VLDL Calc [Ma ss/Vol]Ordered By: Phani Ambrocio on 08-25-2023 Cholesterol in VLDL [Mass/Vol] 11 mg/dL [facility] Complete Blood Count Auto Di ffon 08-25-2023 Mean Corpuscular HGB Conc 33.5 g/dL Normal 32.5-35.6 [facility] Comment on above: Performed By: #### C BCNO, BMP, MG #### [facility] [address] [place] [address] NRBC% 0.0 /100{WBC} Normal 0-0.5 [facility] Comment on above: Performed By: #### C BCNO, BMP, MG #### [address] Comprehensive Metabolic Pane stephanie 08-25-2023 Albumin [Mass/Vol] 4.2 g/dL Normal 3.5-5.7 [facility] Comment on above: Performed By: #### C BCNO, BMP, MG #### [address] GFR/1.73 sq M.predicted MDRD (S/P/Bld) [Vol rate/Area] mL/min/{1.73_m2} Normal [facility] Comment on above: Performed By: #### C BCNO, BMP, MG #### [address] Creatinine [Mass/volume] in Serum or PlasmaOrdered By: Phani Ambrocio on 08-25-2023 Creatinine [Mass/Vol] 0.98 mg/dL Normal 0.70-1.30 [facility] Comment on above: Performed By: #### C BCNO, BMP, MG #### [address] Erythrocyte distribution wid th [Ratio] by Automated countOrdered By: Phani Ambrocio on 08-25-2023 Erythrocyte distribution width (RBC) [Ratio] 14.5 % Normal 12.0-14.8 [facility] Comment on above: Performed By: #### C BCMARCI, BMP, MG #### [facility] [address] Erythrocytes [#/volume] in B lood by Automated countOrdered By: Phani Ambrocio on 08-25-2023 RBC (Bld) [#/Vol] 4.04 10*6/uL Normal 3.90-5.60 [facility] Comment on above: Performed By: #### C BCMARCI, BMP, MG #### [facility] [address] [place] [address] [place] Glucose [Mass/volume] in Ser um or PlasmaOrdered By: Phani Ambrocio on 08-25-2023 Glucose [Mass/Vol] 109 mg/dL High 70-100 [facility] Comment on above: ADA recommended refe rence rangeRandom Glucose Reference Range is dependent on time and content of last meal. Glucose of more than 200 mg/dL in a nonstressed, ambulatory subject supports the diagnosis of Diabetes Mellitus. Result Comment: [place] om Glucose Reference Range is dependent on time and content of last meal. Glucose of more than 200 mg/dL in a nonstressed, ambulatory subject supports the diagnosis of Diabetes Mellitus. ADA recommended reference range Performed By: #### C MAGY BMP, MG #### [facility] [address] Glucose mean value [Mass/vol ume] in Blood Estimated from glycated hemoglobinOrdered By: Phani Ambrocio on 08-25-2023 Average glucose Estimated from glycated hemoglobin (Bld) [Mass/Vol] 131 mg/dL [facility] Hematocrit [Volume Fraction] of Blood by Automated countOrdered By: Phani Ambrocio on 08-25-2023 Hematocrit (Bld) [Volume fraction] 37.7 % Low 38.8-50.0 [facility] Comment on above: Performed By: #### C BCNO, BMP, MG #### [facility] [address] [place] [id number] [place] Hemoglobin A1c percentageOrd ered By: Phani Ambrocio on 08-25-2023 HbA1c (Bld) [Mass fraction] 6.2 % High 4.3-5.6 [facility] Comment on above: Increased risk for d iabetes: 5.7 - 6.4diabetes: >6.4glycemic control for adults with diabetes: <7.0 Result Comment: Incr eased risk for diabetes: 5.7 - 6.4 diabetes: >6.4 glycemic control for adults with diabetes: <7.0 Performed By: #### C BCNO, BMP, MG #### [address] Hemoglobin [Mass/volume] in BloodOrdered By: Phani Ambrocio on 08-25-2023 Hemoglobin (Bld) [Mass/Vol] 12.6 g/dL Low 13.0-17.0 [facility] Comment on above: Performed By: #### C BCNO, BMP, MG #### [address] Leukocytes [#/volume] correc marimar for nucleated erythrocytes in Blood by Automated counOrdered By: Phani Ambrocio on 08-25-2023 WBC corrected for nucl RBC Auto (Bld) [#/Vol] 6.5 10*3/uL 4.1-10.5 [facility] Leukocytes [#/volume] in Blo od by Automated countOrdered By: Phani Ambrocio on 08-25-2023 WBC (Bld) [#/Vol] 6.5 10*3/uL Normal 4.1-10.5 [facility] Comment on above: Performed By: #### C BCNO, BMP, MG #### [address] Lipid Panelon 08-25-2023 LDL Cholesterol,Calculated 46 mg/dL Normal 0-100 [facility] Comment on above: Result Comment: LDL ATP III CLASSIFICATION LDL less than 100 mg/dL Optimal LDL 100-129 mg/dL Near or above optimal LDL 130-159 mg/dL Borderline high LDL 160-189 mg/dL High LDL greater than 189 mg/dL Very high Performed By: #### C BCNO, BMP, MG #### [address] Triglyceride w/Reflex 59 mg/dL Normal 0-149 [facility] Comment on above: Result Comment: TRIG ATP III CLASSIFICATION TRIG less than 150 mg/dL Normal TRIG 150-199 mg/dL Borderline high TRIG 200-500 mg/dL High TRIG greater than 500 mg/dL Very high Standard traceable to the Center for Disease Conrtrol and Prevention (CDC) test method. Performed By: #### C BCNO, BMP, MG #### [address] VLDL CHOLESTEROL 11 mg/dL Normal [facility] Comment on above: Performed By: #### C BCNO, BMP, MG #### [address] Lymphocytes [#/volume] in Bl ood by Automated countOrdered By: Phani Ambrocio on 08-25-2023 Lymphocytes (Bld) [#/Vol] 1.6 10*3/uL Normal 1.00-4.8 [facility] Comment on above: Performed By: #### C BCNO, BMP, MG #### [address] Lymphocytes/100 leukocytes i n Blood by Automated countOrdered By: Phani Ambrocio on 08-25-2023 Lymphocytes/100 WBC (Bld) 24.0 % Normal . [facility] Comment on above: Performed By: #### C BCNO, BMP, MG #### [address] MCH [Entitic mass] by Automa marimar countOrdered By: Phani Ambrocio on 08-25-2023 MCH (RBC) [Entitic mass] 31.3 pg Normal 27.5-35.2 [facility] Comment on above: Performed By: #### C BCNO, BMP, MG #### [address] MCHC Auto (RBC) [Mass/Vol]Or dered By: Phani Ambrocio on 08-25-2023 MCHC (RBC) [Mass/Vol] 33.5 g/dL 32.5-35.6 [facility] MCV [Entitic volume] by Auto mated countOrdered By: Phani Ambrocio on 08-25-2023 MCV (RBC) [Entitic vol] 93.4 fL Normal 83.5-101 [facility] Comment on above: Performed By: #### C BCNO, BMP, MG #### [address] Neutrophils [#/volume] in Bl ood by Automated countOrdered By: Phani Ambrocio on 08-25-2023 Neutrophils (Bld) [#/Vol] 4.2 10*3/uL Normal 1.8-7.7 [facility] Comment on above: Performed By: #### C BCMARCI, BMP, MG #### [address] No Panel InformationOrdered By: Phani Ambrocio on 08-25-2023 Estimated GFR (CKD-EPI) > 60.0 mL/Min [facility] Creatinine Clearance (Chem N/A [facility] Nucleated erythrocytes [Pres ence] in Blood by Automated countOrdered By: Phani Ambrocio on 08-25-2023 Nucleated RBC Auto Ql (Bld) 0.0 /100{WBC} 0-0.5 [facility] Platelet mean volume [Entiti c volume] in Blood by Automated countOrdered By: Phani Ambrocio on 08-25-2023 Platelet mean volume (Bld) [Entitic vol] 9.9 fL Normal 6.6-10.1 [facility] Comment on above: Performed By: #### C BCNO, BMP, MG #### [address] Platelets [#/volume] in Bloo d by Automated countOrdered By: Phani Ambrocio on 08-25-2023 Platelets (Bld) [#/Vol] 173 10*3/uL Normal 150-450 [facility] Comment on above: Performed By: #### C BCNO, BMP, MG #### [address] Potassium [Moles/volume] in Serum or PlasmaOrdered By: Phani Ambrocio on 08-25-2023 Potassium [Moles/Vol] 4.4 mmol/L Normal 3.5-5.1 [facility] Comment on above: Performed By: #### C BCMARCI, BMP, MG #### [facility] [address] [place] [address] Protein [Mass/volume] in Ser um or PlasmaOrdered By: Phani Ambrocio on 08-25-2023 Protein [Mass/Vol] 6.3 g/dL Low 6.4-8.9 [facility] Comment on above: Performed By: #### C BCNO, BMP, MG #### [facility] [address] [place] [address] Serum globulin measurement b y calculation (mass/volume)Ordered By: Phani Ambrocio on 08-25-2023 Globulin (S) [Mass/Vol] 2.1 g/dL Normal [facility] Comment on above: Performed By: #### C BCNO, BMP, MG #### [facility] [address] [place] [address] Serum or plasma albumin/glob ulin mass ratioOrdered By: Phani Ambrocio on 08-25-2023 Albumin/Globulin [Mass ratio] 2.0 {ratio} Normal [facility] Comment on above: Performed By: #### C BCMARCI, BMP, MG #### [facility] [address] [place] [address] Serum or plasma anion gap de terminationOrdered By: Phani Ambrocio on 08-25-2023 Anion gap [Moles/Vol] 11.5 mmol/L Normal 6.0-15.0 [facility] Comment on above: Performed By: #### C BCNO, BMP, MG #### [facility] [address] [place] [address] Serum or plasma high density lipoprotein (HDL) cholesterol measurementOrdered By: Phani Ambrocio on 08-25-2023 Cholesterol in HDL [Mass/Vol] 48 mg/dL Normal 23-92 [facility] Comment on above: HDL CHOL ATP-III CLA SSIFICATION Cardiovascular RiskHDL > or equal to 60 mg/dL LOWHDL < 40 mg/dL HIGH Result Comment: HDL CHOL ATP-III CLASSIFICATION Cardiovascular Risk HDL > or equal to 60 mg/dL LOW HDL < 40 mg/dL HIGH Performed By: #### C MAGY BMP, MG #### [address] Serum or plasma total choles terol/high density lipoprotein (HDL) cholesterol mass ratOrdered By: Phani Ambrocio on 08-25-2023 Cholesterol.total/Janeen sterol in HDL [Mass ratio] 2.2 {ratio} Normal <5.0 [facility] Comment on above: Performed By: #### C MAGY, BMP, MG #### [address] Sodium [Moles/volume] in Ser um or PlasmaOrdered By: Phani Ambrocio on 08-25-2023 Sodium [Moles/Vol] 140 mmol/L Normal 136-145 [facility] Comment on above: Performed By: #### C MAGY BMP, MG #### [address] Thyrotropin [Units/volume] i n Serum or PlasmaOrdered By: Phani Ambrocio on 08-25-2023 TSH Qn 1.98 m[IU]/L Normal 0.45-5.33 [facility] Comment on above: Result Comment: PERF ORMED BY: [place] [address] PATHOLOGIST LABEL FOLDER CECILIA CARBONE M.D. Performed By: #### C MAGY BMP, MG #### [address] Triglyceride [Mass/volume] i n Serum or PlasmaOrdered By: Phani Ambrocio on 08-25-2023 Triglyceride [Mass/Vol] 59 mg/dL 0-149 [facility] Comment on above: TRIG ATP III CLASSIF ICATIONTRIG less than 150 mg/dL NormalTRIG 150-199 mg/dL Borderline highTRIG 200-500 mg/dL High TRIG greater than 500 mg/dL Very highStandard traceable to the Center for Disease Conrtrol and Prevention (CDC) test method. Urea nitrogen [Mass/volume] in Serum or PlasmaOrdered By: Phani Ambrocio on 08-25-2023 Urea nitrogen [Mass/Vol] 18 mg/dL Normal 7-25 [facility] Comment on above: Performed By: #### C BCNO, BMP, MG #### [facility] [address] Alanine aminotransferase [En zymatic activity/volume] in Serum or PlasmaOrdered By: FLAVIO LYNCH on 02-21-2023 ALT [Catalytic activity/Vol] 12 U/L 7-52 [facility] Albumin [Mass/volume] in Ser um or Plasma by Bromocresol green (BCG) dye binding methoOrdered By: FLAVIO LYNCH on 02-21-2023 Albumin BCG dye [Mass/Vol] 4.1 g/dL 3.5-5.7 [facility] Alkaline phosphatase [Enzyma tic activity/volume] in Serum or PlasmaOrdered By: FLAVIO LYNCH on 02-21-2023 ALP [Catalytic activity/Vol] 99 U/L 34-104 [facility] Aspartate aminotransferase [ Enzymatic activity/volume] in Serum or PlasmaOrdered By: FLAVIO LYNCH on 02-21-2023 AST [Catalytic activity/Vol] 14 U/L 13-39 [facility] Bilirubin.total [Mass/volume ] in Serum or PlasmaOrdered By: FLAVIO LYNCH on 02-21-2023 Bilirubin [Mass/Vol] 1.6 mg/dL 0.3-1.0 [facility] Comment on above: Samples from patient s who have taken Naproxen have shown spurious elevation in Total Bilirubin levels. A metabolite of Naproxen, O-desmethylnaproxen, has been shown to interfere with the Jenrichardik-Santos method for measuring Total Bilirubin. Calcium [Mass/volume] in Ser um or PlasmaOrdered By: FLAVIO LYNCH on 02-21-2023 Calcium [Mass/Vol] 9.3 mg/dL 8.6-10.3 [facility] Carbon dioxide, total [Moles /volume] in Serum or PlasmaOrdered By: FLAVIO LYNCH on 02-21-2023 CO2 [Moles/Vol] 28.2 mmol/L 21.0-31.0 [facility] Chloride [Moles/volume] in S grady or PlasmaOrdered By: FLAVIO LYNCH on 02-21-2023 Chloride [Moles/Vol] 105 mmol/L 98-107 [facility] Cholesterol [Mass/volume] in Serum or PlasmaOrdered By: FLAVIO LYNCH on 02-21-2023 Cholesterol [Mass/Vol] 106 mg/dL 140-200 [facility] Comment on above: Chol less than 200 m g/dl low riskChol 201-239 mg/dl borderline riskChol 240 mg/dl and greater high risk Cholesterol in LDL Calc [Mas s/Vol]Ordered By: FLAVIO LYNCH on 02-21-2023 Cholesterol in LDL [Mass/Vol] 40 mg/dL 0-100 [facility] Comment on above: LDL ATP III CLASSIFI CATIONLDL less than 100 mg/dL OptimalLDL 100-129 mg/dL Near or above optimalLDL 130-159 mg/dL Borderline highLDL 160-189 mg/dL HighLDL greater than 189 mg/dL Very high Cholesterol in VLDL Calc [Ma ss/Vol]Ordered By: FLAVIO LYNCH on 02-21-2023 Cholesterol in VLDL [Mass/Vol] 20 mg/dL [facility] Creatinine [Mass/volume] in Serum or PlasmaOrdered By: FLAVIO LYNCH on 02-21-2023 Creatinine [Mass/Vol] 0.89 mg/dL 0.70-1.30 [facility] Globulin Calc (S) [Mass/Vol] Ordered By: FLAVIO LYNCH on 02-21-2023 Globulin (S) [Mass/Vol] 2.2 g/dL [facility] Glucose [Mass/volume] in Ser um or PlasmaOrdered By: FLAVIO LYNCH on 02-21-2023 Glucose [Mass/Vol] 137 mg/dL 70-100 [facility] Comment on above: ADA recommended refe rence rangeRandom Glucose Reference Range is dependent on time and content of last meal. Glucose of more than 200 mg/dL in a nonstressed, ambulatory subject supports the diagnosis of Diabetes Mellitus. No Panel InformationOrdered By: FLAVIO LYNCH on 02-21-2023 Estimated GFR (CKD-EPI) > 60.0 mL/Min [facility] Creatinine Clearance (Chem N/A [facility] Potassium [Moles/volume] in Serum or PlasmaOrdered By: FLAVIO LYNCH on 02-21-2023 Potassium [Moles/Vol] 4.3 mmol/L 3.5-5.1 [facility] Protein [Mass/volume] in Ser um or PlasmaOrdered By: FLAVIO LYNCH on 02-21-2023 Protein [Mass/Vol] 6.3 g/dL 6.4-8.9 [facility] Serum or plasma albumin/glob ulin mass ratioOrdered By: FLAVIO LYNCH on 02-21-2023 Albumin/Globulin [Mass ratio] 1.9 {ratio} [facility] Serum or plasma anion gap de terminationOrdered By: FLAVIO LYNCH on 02-21-2023 Anion gap [Moles/Vol] 12.1 mmol/L 6.0-15.0 [facility] Serum or plasma high density lipoprotein (HDL) cholesterol measurementOrdered By: FLAVIO LYNCH on 02-21-2023 Cholesterol in HDL [Mass/Vol] 45 mg/dL 23-92 [facility] Comment on above: HDL CHOL ATP-III CLA SSIFICATION Cardiovascular RiskHDL > or equal to 60 mg/dL LOWHDL < 40 mg/dL HIGH Serum or plasma total choles terol/high density lipoprotein (HDL) cholesterol mass ratOrdered By: FLAVIO LYNCH on 02-21-2023 Cholesterol.total/Janeen sterol in HDL [Mass ratio] 2.4 {ratio} <5.0 [facility] Sodium [Moles/volume] in Ser um or PlasmaOrdered By: FLAVIO LYNCH on 02-21-2023 Sodium [Moles/Vol] 141 mmol/L 136-145 [facility] Thyrotropin [Units/volume] i n Serum or PlasmaOrdered By: FLAVIO LYNCH on 02-21-2023 TSH Qn 1.90 m[IU]/L 0.45-5.33 [facility] Triglyceride [Mass/volume] i n Serum or PlasmaOrdered By: FLAVIO LYNCH on 02-21-2023 Triglyceride [Mass/Vol] 103 mg/dL 0-149 [facility] Comment on above: TRIG ATP III CLASSIF ICATIONTRIG less than 150 mg/dL NormalTRIG 150-199 mg/dL Borderline highTRIG 200-500 mg/dL High TRIG greater than 500 mg/dL Very highStandard traceable to the Center for Disease Conrtrol and Prevention (CDC) test method. Urea nitrogen [Mass/volume] in Serum or PlasmaOrdered By: FLAVIO LYNCH on 02-21-2023 Urea nitrogen [Mass/Vol] 13 mg/dL 10-05 [facility] Office Visit (Cardiology)on 12-01-2022 Follow-up visit Diagnoses/Problems Assessed Atherosclerosis of coronary artery (414.00) (I25.10) Diabetes mellitus (250.00) (E11.9) Dizziness (780.4) (R42) History of PTCA (V45.82) (Z98.61) Hyperlipidemia (272.4) (E78.5) Sleep apnea (780.57) (G47.30) Former smoker (V15.82) (Z87.891) Class 1 obesity with body mass index (BMI) of 31.0 to 31.9 in adult (278.00,V85.31) (E66.9,Z68.31) At risk for falls (V15.88) (Z91.81) Orders Atherosclerosis of coronary artery Renew: Aspirin 81 MG Oral Tablet Delayed Release; TAKE 1 TABLET DAILY Class 1 obesity with body mass index (BMI) of 31.0 to 31.9 in adult Healthy Weight Tips; Status:Complete; Done: [id number] Some eating tips that can help you lose weight.; Status:Complete; Done: [id number] SocHx: Former smoker Tobacco Use Screening; Status:Complete; Done: [id number] Patient Instructions Please bring all medicines, vitamins, and herbal supplements with you when you come to the office. Prescriptions will not be filled unless you are compliant with your follow up appointments or have a follow up appointment scheduled as per instruction of your physician. Refills should be requested at the time of your visit. Patient provided Falls Prevention education sheet. Follow up in 6 months PCP to forward DecKeteraber labs to our office for review. Chief Complaint DES JACOB is being seen for a 6 month follow-up of. Patient is in the office for follow-up for the problems noted below. He came with his and he tells me that he is having early dementia for which Aricept has been prescribed. Since his last visit we did a carotid scan to assess his dizziness which came back normal. He lost 10 pounds in the last several months on purpose which is great. He denies any angina and has occasional falls due to imbalance. He has no orthopnea PND or lower extremity edema. His vital signs and cardiopulmonary examination were normal. Lab data from PCP were requested. ASSESSMENT AND PLAN: 1. Two-vessel coronary artery disease, status post angioplasty in 2013. We will continue present medical therapy. Encouraged more lifestyle changes. 2. Sleep apnea, on CPAP machine, which he is compliant with. 3. Hyperlipidemia, LDL on target, continue to manage as is 4. Diabetes managed by his family physician, on metformin, recent lab data from PCP were requested 5. Class I obesity. Patient lost several pounds since last visit and encouragement provided for more. 6. Recurrent falls due to dizziness and imbalance. There is no indication of hypotension or cardiac arrhythmias., Carotid scan that we did recently that she showed no significant CVD. Education provided to prevent future falls 7. Early dementia with short-term memory loss. Patient is on Aricept managed by PCP. Kristofer Ortega MD, [facility] Surgical History Problems History of Cataract surgery History of Complete colonoscopy History of Percutaneous transluminal coronary angioplasty Current Meds Medication NameInstruction Aspirin EC 81 MG TBECTAKE 1 TABLET DAILY. Atorvastatin Calcium 40 MG Oral TabletTAKE 1 TABLET AT BEDTIME. Donepezil HCl - 10 MG Oral Tablettake 1 tablet by mouth at bedtime Finasteride 5 MG Oral TabletTAKE 1 TABLET DAILY. FLUoxetine HCl - 40 MG Oral CapsuleTAKE 1 CAPSULE Daily Lisinopril 2.5 MG Oral TabletTAKE 1 TABLET BY MOUTH EVERY DAY metFORMIN HCl - 500 MG Oral TabletTake 1 tablet daily Tadalafil 20 MG Oral TabletTAKE 1 TABLET 1 HOUR BEFORE ACTIVITY NEEDED. Terazosin HCl - 1 MG Oral CapsuleTAKE 1 CAPSULE AT BEDTIME NIGHTLY. Allergies Medication No Known Drug Allergies Recorded By: Shira Cote; 03/25/2021 11:58:13 PM Social History Problems Alcohol use (V49.89) (Z78.9) rarely occasional Caffeine use (V49.89) (Z78.9) 4 cups of coffee 12 oz cups Former smoker (V15.82) (Z87.891) No illicit drug use Review of Systems Constitutional: not feeling tired. Cardiovascular: no intermittent leg claudication and as noted in HPI. Respiratory: no cough and no shortness of breath. Gastrointestinal: no change in bowel habits and no blood in stools. Integumentary: no skin rashes. Neurological: no seizures and no frequent falls. All other systems have been reviewed and are negative for complaint. Vitals Vital Signs Recorded: [id number] 11:22AM Heart Rate60, L Radial Tvdrhzbn386, LUE, Sitting Scozruvsm33, LUE, Sitting Height5 ft 6.5 in Ngtavu507 lb BMI Aasmcgcpsb71.96 kg/m2 BSA Calculated2.02 Tobacco Useb) No Falls Screening (Age 18+)b) One or more falls in the last year Physical Exam Constitutional: alert and in no acute distress. Neck: neck is supple, symmetric, trachea midline, no masses and no thyromegaly . Pulmonary: no increased work of breathing or signs of respiratory distress and lungs clear to auscultation. Cardiovascular: carotid pulses 2+ bilaterally with no bruit , JVP was normal, no thrills , regular rhythm, normal S1 and S2, no murmurs , pedal pulses 2+ bilaterally and n (more content not included)... Normal [employer] Tobacco Screening.on 023 Fall risk assessment b) One or more fall s in the last year [facility] Mozes [address] DO Work Phone: Tobacco use status [facility] b) No M [facility] Mozes 250 DO Work Phone: VASC LAB Carotid Artery Dupl ex Ultrasounon 05-26-2022 VAS LAB Carotid Artery Duplex Ultrasoun [address], [address] [place] [address] Vascular Lab Report Carotid Artery Duplex Ultrasound Patient Name: DES Thompson Physician: [id number] Kristofer Ortega MD, [facility] Study Date: 05/26/2022 Referring KRISTOFER ORTEGA Physician: MRN/PID: [id number] PCP: Harsh Ambrocio MD Accession/Order#: [id number] CC Report to: Date of : 1940 Technologist: Laura Ab RDCS, RVT Gender: M Technologist 2: Admission Status: Outpatient Location Performed: [facility] Diagnosis/ICD: B59-Ljalbccqm and giddiness Indication: CAD, PTCA-2014, Obesity, MICHAEL, Former Smoker, Diabetes, Hyperlipidemia Procedure/CPT: 21197 Cerebrovascular Carotid Duplex scan complete-[id number] CONCLUSIONS: Right Carotid: Findings are consistent with less than 50% stenosis of the right proximal ICA. Laminar flow seen by color Doppler. There are elevated velocities in the right ECA that are suggestive of disease. No evidence of hemodynamically significant stenosis of the right common carotid artery. The right vertebral artery is patent with antegrade flow. Left Carotid: Findings are consistent with less than 50% stenosis of the left proximal ICA. Laminar flow seen by color Doppler. There are elevated velocities in the left ECA that are suggestive of disease. No evidence of hemodynamically significant stenosis of the left common carotid artery. The left vertebral artery is patent with antegrade flow. Imaging AND Doppler Findings: Right Plaque Morph: The proximal right internal carotid artery demonstrates irregular plaque. The proximal right external carotid artery demonstrates irregular and calcified plaque. The proximal right common carotid artery demonstrates irregular and calcified plaque. The mid right common carotid artery demonstrates irregular and calcified plaque. The distal right common carotid artery demonstrates irregular and calcified plaque. Left Plaque Morph: The proximal left internal carotid artery demonstrates irregular and calcified plaque. The proximal left external carotid artery demonstrates irregular and calcified plaque. The distal left common carotid artery demonstrates heterogenous, irregular and calcified plaque. Right Left PSV EDV PSV EDV 71 cm/s 12 cm/s CCA P 84 cm/s 10 cm/s 74 cm/s 10 cm/s CCA M 77 cm/s 15 cm/s 82 cm/s 13 cm/s CCA D 59 cm/s 13 cm/s 64 cm/s 13 cm/s ICA P 71 cm/s 17 cm/s 88 cm/s 18 cm/s ICA M 83 cm/s 19 cm/s 65 cm/s 14 cm/s ICA D 77 cm/s 22 cm/s 182 cm/s ECA 148 cm/s 54 cm/s Vertebral 55 cm/s Right Left ICA/CCA Ratio 0.8 1.2 [id number] Kristofer Ortega MD, FACC Final Normal [facility] Office Visit (Cardiology)on 05-19-2022 Follow-up visit Diagnoses/Problems Assessed Atherosclerosis of coronary artery (414.00) (I25.10) History of PTCA (V45.82) (Z98.61) Diabetes mellitus (250.00) (E11.9) Hyperlipidemia (272.4) (E78.5) Former smoker (V15.82) (Z87.891) Class 1 obesity with body mass index (BMI) of 34.0 to 34.9 in adult (278.00,V85.34) (E66.9,Z68.34) Dizziness (780.4) (R42) At risk for falls (V15.88) (Z91.81) Sleep apnea (780.57) (G47.30) Orders Atherosclerosis of coronary artery Renew: Aspirin EC 81 MG Oral Tablet Delayed Release; TAKE 1 TABLET DAILY Renew: Lisinopril 2.5 MG Oral Tablet; TAKE 1 TABLET BY MOUTH EVERY DAY Atherosclerosis of coronary artery, Hyperlipidemia Renew: Atorvastatin Calcium 40 MG Oral Tablet (Lipitor); TAKE 1 TABLET AT BEDTIME Class 1 obesity with body mass index (BMI) of 34.0 to 34.9 in adult Healthy Weight Tips; Status:Complete - Retrospective Authorization; Done: 19May2022 Some eating tips that can help you lose weight.; Status:Complete - Retrospective Authorization; Done: 19May2022 Dizziness, History of PTCA VASC LAB Carotid Artery Duplex Ultrasound; Status:Hold For - Scheduling,Retrospect chanell Authorization; Requested for:19May2022; Laterality : Bilateral SocHx: Former smoker Tobacco Use Screening; Status:Complete; Done: 19May2022 Patient Instructions Please bring all medicines, vitamins, and herbal supplements with you when you come to the office. Prescriptions will not be filled unless you are compliant with your follow up appointments or have a follow up appointment scheduled as per instruction of your physician. Refills should be requested at the time of your visit. Fall prevention education given Follow up in 6 months labs as ordered per PCP Chief Complaint Patient is in the office for follow-up for the problems noted below accompanied by his . She is concerned about his falling down and dizziness. He had no injuries. He denies any syncope. He has no angina and no complaint of palpitations or cardiac arrhythmias. He is compliant with CPAP machine. His weight remains above target. His lab data were reviewed. Examination is remarkable for obesity. He has a visit coming up with his PCP next week. ASSESSMENT AND PLAN: 1. Two-vessel coronary artery disease, status post angioplasty in 2013. We will continue present medical therapy. Encouraged more lifestyle changes. 2. Sleep apnea, on CPAP machine, which he is compliant with. 3. Hyperlipidemia, LDL on target, continue to manage as is 4. Diabetes managed by his family physician, on metformin, recent lab data from PCP were reviewed and discussed with the patient 5. Obesity. Encouraged more weight control with regular exercise and cutting back calorie intakes. 6. Recurrent falls due to dizziness and imbalance. There is no indication of hypotension or cardiac arrhythmias. Patient has not had carotid scan recently and we will order one. Advised patient and his to discuss this matter with his PCP. Kristofer Ortega MD, [facility] Surgical History Problems History of Cataract surgery History of Complete colonoscopy History of Percutaneous transluminal coronary angioplasty Past Medical History Problems History of Adenomyomatous hyperplasia of prostate gland (600.20) (N40.0) Resolved Date: 13 May 2021 History of obesity (V12.29) (Z86.39) Resolved Date: 13 May 2021 Current Meds Medication NameInstruction Aspirin EC 81 MG Oral Tablet Delayed ReleaseTAKE 1 TABLET DAILY. Atorvastatin Calcium 40 MG Oral TabletTAKE 1 TABLET AT BEDTIME. Finasteride 5 MG Oral TabletTAKE 1 TABLET DAILY. FLUoxetine HCl - 40 MG Oral CapsuleTAKE 1 CAPSULE Daily Lisinopril 2.5 MG Oral TabletTAKE 1 TABLET BY MOUTH EVERY DAY metFORMIN HCl - 500 MG Oral TabletTAKE 1 TABLET EVERY 12 HOURS WITH FOOD. Tadalafil 20 MG Oral TabletTAKE 1 TABLET 1 HOUR BEFORE ACTIVITY NEEDED. Terazosin HCl - 1 MG Oral CapsuleTAKE 1 CAPSULE AT BEDTIME NIGHTLY. Allergies Medication No Known Drug Allergies Recorded By: Shira Cote; 03/25/2021 11:58:13 PM Social History Problems Alcohol use (V49.89) (Z78.9) rarely occasional Caffeine use (V49.89) (Z78.9) 4 cups of coffee 12 oz cups Former smoker (V15.82) (Z87.891) No illicit drug use Review of Systems Constitutional: not feeling tired. Cardiovascular: no intermittent leg claudication and as noted in HPI. Respiratory: shortness of breath, but no cough. Gastrointestinal: no change in bowel habits and no blood in stools. Integumentary: no skin rashes. Neurological: dizziness, but no seizures and no frequent falls. All other systems have been reviewed and are negative for complaint. Vitals Vital Signs Recorded: 19May2022 10:42AM Heart Rate56, R Radial Eulhlgmk239, LUE, Sitting Drbwiafjm33, LUE, Sitting Height5 ft 6.5 in Heeboc288 lb BMI Czaqtywgsw04.02 kg/m2 BSA Calculated2.07 Tobacco Useb) No PHQ-2 #1. Over the last 2 weeks have you felt down, depressed or hopeless? (If yes, an (more content not included)... Normal [employer] Tobacco Screening.on 023 Adult depression screening assessment No [facility] [address]es 250 DO Work Phone: Fall risk assessment b) One or more fall s in the last year [facility] Mozes 250 DO Work Phone: Tobacco use status [facility] b) No M [facility] Mozes 250 DO Work Phone: Cholesterol [Mass/volume] in Serum or PlasmaOrdered By: Phani Ambrocio on 11-17-2021 Cholesterol [Mass/Vol] 124 mg/dL 140-200 [facility] Comment on above: Chol less than 200 m g/dl low risk Chol 201-239 mg/dl borderline risk Chol 240 mg/dl and greater high risk Cholesterol in LDL Calc [Mas s/Vol]Ordered By: Phani Ambrocio on 11-17-2021 Cholesterol in LDL [Mass/Vol] 73 mg/dL 0-100 [facility] Comment on above: LDL ATP III CLASSIFI CATION LDL less than 100 mg/dL Optimal LDL 100-129 mg/dL Near or above optimal LDL 130-159 mg/dL Borderline high LDL 160-189 mg/dL High LDL greater than 189 mg/dL Very high Cholesterol in VLDL Calc [Ma ss/Vol]Ordered By: Phani Ambrocio on 11-17-2021 Cholesterol in VLDL [Mass/Vol] 16 mg/dL [facility] Creatinine and Glomerular fi ltration rate.predicted panel (S/P/Bld)Ordered By: Phani Ambrocio on 11-17-2021 Creatinine [Mass/Vol] 1.03 mg/dL 0.64-1.27 [facility] Estimated glomerular filtrat ion rate (GFR) non- AmericanOrdered By: Phani Ambrocio on 11-17-2021 GFR/1.73 sq M.predicted among non-blacks MDRD (S/P/Bld) [Vol rate/Area] > 60 mL/Min [facility] No Panel InformationOrdered By: Phani Ambrocio on 11-17-2021 Estimated GFR () > 60 mL/Min [facility] Comment on above: GFR estimated refere nce range: According to KDOQI guidelines, <60 ml/min/1.73m2 is sufficient to diagnose a patient with chronic kidney disease. Pharmacy Creatinine Clearance (Chem N/A [facility] Prostate Specific Antigen Screen 1.530 ng/mL 0.000-4.000 [facility] Serum or plasma anion gap de terminationOrdered By: Phani Ambrocio on 11-17-2021 Anion gap [Moles/Vol] 14.5 mmol/L 6.0-15.0 [facility] Serum or plasma calcium blanca urement (mass/volume)Ordered By: Phani Ambrocio on 11-17-2021 Calcium [Mass/Vol] 9.3 mg/dL 8.2-10.2 [facility] Serum or plasma chloride junior surement (moles/volume)Ordered By: Phani Ambrocio on 11-17-2021 Chloride [Moles/Vol] 102 mmol/L 95-114 [facility] Serum or plasma glucose blanca urement (mass/volume)Ordered By: Phani Ambrocio on 11-17-2021 Glucose [Mass/Vol] 129 mg/dL 70-100 [facility] Comment on above: ADA recommended refe rence range Random Glucose Reference Range is dependent on time and content of last meal. Glucose of more than 200 mg/dL in a nonstressed, ambulatory subject supports the diagnosis of Diabetes Mellitus. Serum or plasma high density lipoprotein (HDL) cholesterol measurementOrdered By: Phani Ambrocio on 11-17-2021 Cholesterol in HDL [Mass/Vol] 35 mg/dL 29-71 [facility] Comment on above: HDL CHOL ATP-III CLA SSIFICATION Cardiovascular Risk HDL > or equal to 60 mg/dL LOW HDL < 40 mg/dL HIGH Serum or plasma potassium me asurement (moles/volume)Ordered By: Phani Ambrocio on 11-17-2021 Potassium [Moles/Vol] 4.5 mmol/L 3.5-5.1 [facility] Serum or plasma sodium measu rement (moles/volume)Ordered By: Phani Ambrocio on 11-17-2021 Sodium [Moles/Vol] 135 mmol/L 136-146 [facility] Serum or plasma total carbon dioxide measurement (moles/volume)Ordered By: Phani Ambrocio on 11-17-2021 CO2 [Moles/Vol] 23.0 mmol/L 22.0-30.0 [facility] Serum or plasma total choles terol/high density lipoprotein (HDL) cholesterol mass ratOrdered By: Phani Ambrocio on 11-17-2021 Cholesterol.total/Janeen sterol in HDL [Mass ratio] 3.5 {ratio} <5.0 [facility] Serum or plasma urea nitroge n measurement (mass/volume)Ordered By: Phani Ambrocio on 11-17-2021 Urea nitrogen [Mass/Vol] 15 mg/dL 9- [facility] Triglyceride [Mass/volume] i n Serum or PlasmaOrdered By: Phani Ambrocio on 11-17-2021 Triglyceride [Mass/Vol] 82 mg/dL 35-149 [facility] Comment on above: TRIG ATP III CLASSIF ICATION TRIG less than 150 mg/dL Normal TRIG 150-199 mg/dL Borderline high TRIG 200-500 mg/dL High TRIG greater than 500 mg/dL Very high Standard traceable to the Center for Disease Conrtrol and Prevention (CDC) test method. Microalbumin (with Creat)on 05-21-2021 mALB 2.6 mg/dL Normal [facility] Comment on above: Result Comment: mALB reference range not established. Performed By: #### m ALBC #### [facility] [address] [place], [place] [id number] mALB/Creat Ratio 14.6 MCG/MG Normal [place] [facility] Comment on above: Result Comment: The ADA (Diabetes Care 26:S94-S98, 2003) defines abnormalities in Albumin excretion as follows: Category Result (MCG/MG Creatinine) Normal <30 Microalbuminuria 30-299 Clinical Albuminuria > or = 300 Performed By: #### m ALBC #### [facility] [address], [place] [id number] UCREA 178 mg/dL Normal 39-259 [facility] Specialist Comment on above: Performed By: #### m ALBC #### [facility] [address], [place] [id number] Complete Blood Count with Au to Diffon 05-20-2021 Basophils (Bld) [#/Vol] 0.03 10*3/uL Normal 0.00-0.20 [facility] Specialist Comment on above: Performed By: #### C BCAD, CMP, LIPD, TSH #### [facility] [address], [place] [id number] Basophils/100 WBC (Bld) 0.5 % Normal [facility] Specialist Comment on above: Performed By: #### C BCAD, CMP, LIPD, TSH #### [facility] [address], [place] [id number] Eosinophils (Bld) [#/Vol] 0.09 10*3/uL Normal 0.02-0.50 [facility] Specialist Comment on above: Performed By: #### C BCAD, CMP, LIPD, TSH #### [facility] [address], [place] [id number] Eosinophils/100 WBC (Bld) 1.4 % Normal [facility] Specialist Comment on above: Performed By: #### C BCAD, CMP, LIPD, TSH #### [facility] [address], [place] [id number] Erythrocyte distribution width (RBC) [Ratio] 13.5 % Normal 11.0-15.0 [facility] Specialist Comment on above: Performed By: #### C BCAD, CMP, LIPD, TSH #### [facility] [address], [place] [id number] Hematocrit (Bld) [Volume fraction] 45.6 % Normal 38.5-50.0 [facility] Specialist Comment on above: Performed By: #### C BCAD, CMP, LIPD, TSH #### [facility] [address], [place] [id number] Hemoglobin (Bld) [Mass/Vol] 14.9 g/dL Normal 13.0-17.1 [facility] Specialist Comment on above: Performed By: #### C BCAD, CMP, LIPD, TSH #### [facility] [address], [place] [id number] Lymphocytes (Bld) [#/Vol] 1.4 10*3/uL Normal 0.9-3.9 [facility] Specialist Comment on above: Performed By: #### C BCAD, CMP, LIPD, TSH #### [facility] [address], [place] [id number] Lymphocytes/100 WBC (Bld) 21.8 % Normal [facility] Specialist Comment on above: Performed By: #### C BCAD, CMP, LIPD, TSH #### [facility] [address], [place] [id number] MCH (RBC) [Entitic mass] 30.0 pg Normal 27.0-33.0 [facility] Specialist Comment on above: Performed By: #### C BCAD, CMP, LIPD, TSH #### [facility] [address], [place] [id number] MCHC (RBC) [Mass/Vol] 32.7 g/dL Normal 32.0-36.0 [facility] Comment on above: Performed By: #### C BCAD, CMP, LIPD, TSH #### [facility] [address], [place] [id number] MCV (RBC) [Entitic vol] 92 fL Normal 80-100 [facility] Specialist Comment on above: Performed By: #### C BCAD, CMP, LIPD, TSH #### [facility] [address], [place] [id number] Monocytes (Bld) [#/Vol] 0.6 10*3/uL Normal 0.2-0.9 [facility] Specialist Comment on above: Performed By: #### C BCAD, CMP, LIPD, TSH #### [facility] [address] [place], [place] [id number] Monocytes/100 WBC (Bld) 8.6 % Normal [facility] Comment on above: Performed By: #### C BCAD, CMP, LIPD, TSH #### [facility] [address] [facility] [place] [id number] Neutrophils (Bld) [#/Vol] 4.4 10*3/uL Normal 1.5-7.8 [facility] Comment on above: Performed By: #### C BCAD, CMP, LIPD, TSH #### [facility] [address] [place], [place] [id number] Neutrophils/100 WBC (Bld) 67.5 % Normal [facility] Comment on above: Performed By: #### C BCAD, CMP, LIPD, TSH #### [facility] [address], [place] [id number] Platelet mean volume (Bld) [Entitic vol] 10.80 fL Normal 7.50-12.50 [facility] Comment on above: Performed By: #### C BCAD, CMP, LIPD, TSH #### [facility] [address] [facility] [place] [id number] Platelets (Bld) [#/Vol] 229 10*3/uL Normal 140-400 [facility] Comment on above: Performed By: #### C BCAD, CMP, LIPD, TSH #### [facility] [address] [facility] [place] [id number] RBC (Bld) [#/Vol] 4.96 10*6/uL Normal 4.20-5.80 [facility] Comment on above: Performed By: #### C BCAD, CMP, LIPD, TSH #### [facility] [address] [facility] [place] [id number] RDW-SD 46.1 fL Normal 37.0-50.0 [facility] Comment on above: Performed By: #### C BCAD, CMP, LIPD, TSH #### [facility] [address] [place], [place] [id number] WBC (Bld) [#/Vol] 6.5 10*3/uL Normal 3.8-11.0 [facility] [place] [facility] Comment on above: Performed By: #### C BCAD, CMP, LIPD, TSH #### [facility] [address], [place] [id number] Comprehensive Metabolic Pane stephanie 05-20-2021 Albumin [Mass/Vol] 4.3 g/dL Normal 3.6-5.1 [facility] [place] [facility] Comment on above: Performed By: #### C BCAD, CMP, LIPD, TSH #### [facility] [address], [place] [id number] Albumin/Globulin [Mass ratio] 2.0 {ratio} Normal 1.0-2.5 [facility] Specialist Comment on above: Performed By: #### C BCAD, CMP, LIPD, TSH #### [facility] [address], [place] [id number] ALP [Catalytic activity/Vol] 118 U/L Normal 40-129 [facility] Specialist Comment on above: Performed By: #### C BCAD, CMP, LIPD, TSH #### [facility] [address], [place] [id number] ALT [Catalytic activity/Vol] 13 U/L Normal 9-46 [facility] Specialist Comment on above: Result Comment: 02/11 Female reference range changed. Performed By: #### C BCAD, CMP, LIPD, TSH #### [facility] [address], [place] [id number] Anion gap [Moles/Vol] 19 mmol/L Normal 12-20 [facility] Comment on above: Result Comment: Effe ctive 03/19/2019 reference range changed. Performed By: #### C BCAD, CMP, LIPD, TSH #### [facility] [address] [facility] [place] [id number] AST [Catalytic activity/Vol] 14 U/L Normal 10-40 [facility] Specialist Comment on above: Performed By: #### C BCAD, CMP, LIPD, TSH #### [facility] [address] [facility] [place] [id number] Bilirubin [Mass/Vol] 1.02 mg/dL Normal 0.30-1.20 [facility] Comment on above: Performed By: #### C BCAD, CMP, LIPD, TSH #### [facility] [address], [place] [id number] BUN/CREA 24 Ratio High 6-22 [facility] Comment on above: Performed By: #### C BCAD, CMP, LIPD, TSH #### [facility] [address], [place] [id number] Calcium [Mass/Vol] 9.1 mg/dL Normal 8.6-10.2 [facility] Comment on above: Performed By: #### C BCAD, CMP, LIPD, TSH #### [facility] [address], [place] [id number] Chloride [Moles/Vol] 107 mmol/L Normal 98-107 [facility] Comment on above: Performed By: #### C BCAD, CMP, LIPD, TSH #### [facility] [address], [place] [id number] CO2 [Moles/Vol] 21 mmol/L Normal 20-31 [facility] Comment on above: Performed By: #### C BCAD, CMP, LIPD, TSH #### [facility] [address], [place] [id number] Creatinine [Mass/Vol] 0.8 mg/dL Normal 0.7-1.4 [facility] Comment on above: Performed By: #### C BCAD, CMP, LIPD, TSH #### [facility] [address], [place] [id number] eGFRAA 112 mL/min/1.73m2 Normal >60 [facility] Comment on above: Performed By: #### C BCAD, CMP, LIPD, TSH #### [facility] [address], [place] [id number] eGFRNAA 92 mL/min/1.73m2 Normal >60 [facility] Specialist Comment on above: Performed By: #### C BCAD, CMP, LIPD, TSH #### [facility] [address], [place] [id number] Globulin (S) [Mass/Vol] 2.2 g/dL Normal 1.9-3.7 [facility] Specialist Comment on above: Performed By: #### C BCAD, CMP, LIPD, TSH #### [facility] [address] [facility] [place] [id number] Glucose [Mass/Vol] 143 mg/dL High 65-99 [facility] Histotechnologist Comment on above: Result Comment: For FASTING Glucose --- ADA reference ranges: Normal 65-99 mg/dl Prediabetes 100-125 Diabetes >/= 126 Performed By: #### C BCAD, CMP, LIPD, TSH #### [facility] [address] [facility] [place] [id number] Potassium [Moles/Vol] 4.5 mmol/L Normal 3.5-5.5 [facility] Specialist Comment on above: Performed By: #### C BCAD, CMP, LIPD, TSH #### [facility] [address] [facility] [place] [id number] Protein [Mass/Vol] 6.5 g/dL Normal 6.1-8.1 [facility] Histotechnologist Comment on above: Performed By: #### C BCAD, CMP, LIPD, TSH #### [facility] [address] [facility] [place] [id number] Sodium [Moles/Vol] 142 mmol/L Normal 135-146 [facility] Histotechnologist Comment on above: Performed By: #### C BCAD, CMP, LIPD, TSH #### [facility] [address] [facility] [place] [id number] Urea nitrogen [Mass/Vol] 19 mg/dL Normal 7-25 [facility] Specialist Comment on above: Performed By: #### C BCAD, CMP, LIPD, TSH #### [facility] [address] [place] [id number] Hemoglobin A1Con 05-20-2021 EAG 148.46 Normal [facility] Specialist Comment on above: Performed By: #### A 1C #### [facility] [address] [facility] [place] [id number] HbA1c (Bld) [Mass fraction] 6.8 % High 4.0-6.0 [facility] Specialist Comment on above: Performed By: #### A 1C #### [facility] [address], [place] [id number] Lipid Panelon 05-20-2021 Cholesterol [Mass/Vol] 117 mg/dL Low 125-200 No [facility] Comment on above: Result Comment: Low risk < 200mg/dL Borderline risk 201-239 mg/dl High risk > or equal to 240 Performed By: #### C BCAD, CMP, LIPD, TSH #### [facility] [address], [place] [id number] Cholesterol in HDL [Mass/Vol] 39 mg/dL Low >40 [facility] Comment on above: Result Comment: High Cardiovascular Risk HDL <40 mg/dL Low Cardiovascular Risk HDL > or equal to 60 mg/dl Performed By: #### C BCAD, CMP, LIPD, TSH #### [facility] [address], [place] [id number] Cholesterol in LDL [Mass/Vol] 58 mg/dL Normal [facility] Comment on above: Result Comment: LDL ATP III CLASSIFICATION LDL less than 100 mg/dl Optimal LDL 100-129 mg/dl Near or above optimal LDL 130-159 Borderline high LDL 160-189 High LDL greater than 189 mg/dl Very High Performed By: #### C BCAD, CMP, LIPD, TSH #### [facility] [address], [place] [id number] Cholesterol in VLDL [Mass/Vol] 20 mg/dL Normal [facility] Comment on above: Performed By: #### C BCAD, CMP, LIPD, TSH #### [facility] [address], [place] [id number] Cholesterol.total/Janeen sterol in HDL [Mass ratio] 3 {ratio} Normal [facility] Comment on above: Performed By: #### C BCAD, CMP, LIPD, TSH #### [facility] [address], [place] [id number] Triglyceride [Mass/Vol] 99 mg/dL Normal 30-150 [facility] Comment on above: Result Comment: TRIG ATPIII CLASSIFICATIONS TRIG less than 150 mg/dl Normal TRIG 150-199 mg/dl Borderline High TRIG 200-500 mg/dl High TRIG greather than 500 mg/dl Very High Performed By: #### C BCAD, CMP, LIPD, TSH #### [facility] [address] [place] [id number] TSHon 05-20-2021 TSH 2.810 uIU/mL Normal 0.400-4.500 [facility] Histotechnologist Comment on above: Performed By: #### C BCAD, CMP, LIPD, TSH #### [facility] [address], [place] [id number] Tobacco Screening.on 022 Fall risk assessment b) One or more fall s in the last year [facility] [address] DO Work Phone: Heart Rate Regular [facility] [address] DO Work Phone: Tobacco use status CP b) No [facility] [address] DO Work Phone: Tobacco Screening. Yes [facility] 250 DO Work Phone: ALT (SGPT)on 01-05-2018 ALT enzyme act/vol 26 U/L Normal 10-52 [facility] Comment on above: Performed By: #### 1 [id number] ####[facility] [address] [place] [address] AST (SGOT)on 01-05-2018 AST enzyme act/vol 21 U/L Normal 13-39 [facility] Comment on above: Performed By: #### 1 [id number] ####[facility] [address] [place] [address] CBCon 01-05-2018 Erythrocyte distribution width Auto Ratio (RBC) 14.1 % Normal 12.0-15.4 [facility] Comment on above: Performed By: #### 2 [id number] ####[facility] [address] [place] [address] Hematocrit Auto Volume Fraction (Bld) 46.0 % Normal 38.4-54.9 [facility] Comment on above: Performed By: #### 2 [id number] ####[facility] [address] [place] [address] Hemoglobin mass conc (Bld) 14.7 g/dL Normal 12.8-17.7 [facility] Comment on above: Performed By: #### 2 [id number] ####[facility] [address] [place] [address] MCH Auto Entitic mass (RBC) 30.2 pg Normal 27.5-32.9 [facility] Comment on above: Performed By: #### 2 [id number] ####[facility] [address] [place] [address] MCHC Auto mass conc (RBC) 32.0 g/dL Normal 30.5-35.4 [facility] Comment on above: Performed By: #### 2 [id number] ####[facility] [address] [place] [address] MCV Auto Entitic volume (RBC) 94.5 fL Normal 83.3-98.2 [facility] Comment on above: Performed By: #### 2 [id number] ####[facility] [address] [place] [address] NRBC Absolute 0.00 10*3/uL Normal [facility] Comment on above: Performed By: #### 2 [id number] ####[facility] [address] [place] [address] NRBC Automated 0.0 /100{WBCs} Normal [facility] Comment on above: Performed By: #### 2 [id number] ####[facility] [address] [place] [address] Platelet mean volume Auto Entitic volume (Bld) 10.5 fL Normal 9.9-12.1 [facility] Comment on above: Performed By: #### 2 [id number] ####[facility] [address] [place] [address] Platelets Auto #/vol (Bld) 199 10*3/uL Normal 155-404 [facility] Comment on above: Performed By: #### 2 [id number] ####[facility] [address] [place] [address] RBC Auto #/vol (Bld) 4.87 10*6/uL Normal 4.08-6.37 [facility] Comment on above: Performed By: #### 2 [id number] ####[facility] [address] [place] [address] RDW SD 49.1 fL High 39.3-48.6 [facility] Comment on above: Performed By: #### 2 [id number] ####[facility] [address] [place] [address] WBC Auto #/vol (Bld) 7.7 10*3/uL Normal 4.2-11.0 [facility] Comment on above: Performed By: #### 2 [id number] ####[facility] [address] [place] [address] Creatinineon 01-05-2018 Creatinine mass conc 0.86 mg/dL Normal 0.50-1.30 [facility] Comment on above: Performed By: #### 1 [id number] ####[address] [address] GFR/1.73 sq M.predicted MDRD vol rate/area mL/min/{1.73_m2} Normal [facility] Comment on above: Result Comment: Inte rpretation for Chronic Kidney Disease:Stages 1&2 >60 Healthy or potential kidney damage.Mild decrease of GFR.Stage 3 30-59 Moderate decrease of GFR.Stage 4 15-29 Severe decrease of GFR.Stage 5 <15 Kidney failure or on dialysis. Performed By: #### 1 [id number] ####[facility] [address] [place] [address] Electrolyte Panelon 01-06-20 18 Anion gap 3 molar conc 14 mmol/L Normal 10-20 [facility] Comment on above: Performed By: #### 1 [id number] ####[facility] [address] [place] [address] Chloride molar conc 105 mmol/L Normal 98-107 [facility] Comment on above: Performed By: #### 1 [id number] ####[facility] [address] [place] [address] HCO3 molar conc (Bld) 24 mmol/L Normal 21-32 [facility] Comment on above: Performed By: #### 1 [id number] ####[facility] [address] [place] [address] Potassium molar conc 4.2 mmol/L Normal 3.5-5.1 [facility] Comment on above: Performed By: #### 1 [id number] ####[facility] [address] [place] [address] Sodium molar conc 139 mmol/L Normal 136-145 [facility] Comment on above: Performed By: #### 1 [id number] ####[facility] [address] [place] [address] Lipid Panelon 01-05-2018 Cholesterol in HDL mass conc 50 mg/dL Normal [facility] Comment on above: Result Comment: Norm al Mod Risk High Risk5-9 >48 42-48 <4210-14 >45 40-45 <4015-19 >38 34-38 <34Adult >39 Performed By: #### 1 [id number] ####[facility] [address] [place] [address] Cholesterol in LDL mass conc 59 mg/dL Normal <130 [facility] Comment on above: Performed By: #### 1 [id number] ####[facility] [address] [place] [address] Cholesterol in VLDL mass conc 18 mg/dL Normal <30 [facility] Comment on above: Performed By: #### 1 [id number] ####[facility] [address] [place] [address] Cholesterol mass conc 127 mg/dL Normal <200 [facility] Comment on above: Performed By: #### 1 [id number] ####[facility] [address] [place] [address] Cholesterol.total/Janeen sterol in HDL mass ratio 2.5 {ratio} Normal [facility] Comment on above: Performed By: #### 1 [id number] ####[facility] [address] [place] [address] Triglyceride mass conc 92 mg/dL Normal <150 [facility] Comment on above: Result Comment: 150- 199 Borderline [id number] High>500 Very High Performed By: #### 1 [id number] ####[facility] [address] [place] [address] Urea Nitrogenon 01-05-2018 Urea nitrogen mass conc 18 mg/dL Normal 6-23 [facility] Comment on above: Performed By: #### 1 [id number] ####[facility] [address] [place] [address] Vital Signs Date Time Vital Sign Value Performing Clinician Facility 05-28-2024 15:33-0400 Body temperature 97.9 [degF] Phani Ambrocio DO Work Phone: [facility] 05-28-2024 15:33-0400 Diastolic blood pressure 83 mm[Hg] Phani Ambrocio DO Work Phone: [facility] 05-28-2024 15:33-0400 Heart rate 67 /min Phani Ambrocio DO Work Phone: [facility] 05-28-2024 15:33-0400 Respiratory rate 20 /min Phani Ambrocio DO Work Phone: [facility] 05-28-2024 15:33-0400 SaO2% (BldA) [Mass fraction] 95 % Phani Ambrocio DO Work Phone: [facility] 05-28-2024 15:33-0400 Systolic blood pressure 167 mm[Hg] Phani Ambrocio DO Work Phone: [facility] 05-28-2024 06:00-0400 Body weight 87.8 kg Phani Ambrocio DO Work Phone: [facility] 05-25-2024 15:20-0400 Body height 167.64 cm Phani Ambrocio DO Work Phone: [facility] 05-23-2024 17:05-0400 Body height 167.64 cm Phani Ambrocio DO Work Phone: [facility] 05-23-2024 17:05-0400 Body temperature 98.1 [degF] Phani Ambrocio DO Work Phone: [facility] 05-23-2024 17:05-0400 Body weight 88.8 kg Phani Ambrocio DO Work Phone: [facility] 05-23-2024 17:05-0400 Diastolic blood pressure 78 mm[Hg] Phani Ricci DO Work Phone: [facility] 05-23-2024 17:05-0400 Heart rate 66 /min Phanigayle Ambrocio DO Work Phone: [facility] 05-23-2024 17:05-0400 Respiratory rate 18 /min Phani Ricci DO Work Phone: [facility] 05-23-2024 17:05-0400 SaO2% (BldA) [Mass fraction] 95 % Phanigayle Ambrocio DO Work Phone: [facility] 05-23-2024 17:05-0400 Systolic blood pressure 175 mm[Hg] Phanigayle Ambrocio DO Work Phone: [facility] 05-18-2024 20:29-0500 Diastolic blood pressure 78 mm[Hg] Phanigayle Ambrocio DO Work Phone: [facility] 05-18-2024 20:29-0500 Heart rate 53 /min Phanigayle Ambrocio DO Work Phone: [facility] 05-18-2024 20:29-0500 Respiratory rate 24 /min Phanigayle Ambrocio DO Work Phone: [facility] 05-18-2024 20:29-0500 SaO2% (BldA) [Mass fraction] 96 % Phanigayle Ambrocio DO Work Phone: [facility] 05-18-2024 20:29-0500 Systolic blood pressure 172 mm[Hg] Phani Stevensonman DO Work Phone: [facility] 05-18-2024 16:58-0500 Body height 170.18 cm Phanigayle Ambrocio DO Work Phone: [facility] 05-18-2024 16:58-0500 Body temperature 98.6 [degF] Phani Ambrocio DO Work Phone: [facility] 05-18-2024 16:58-0500 Body weight 90 kg Phanigayle Ambrocio DO Work Phone: [facility] 03-01-2024 11:07-0500 Body mass index (BMI) [Ratio] 33.27 kg/m2 Phanigayle Ambrocio DO Work Phone: [facility] 03-01-2024 11:07-0500 Body weight 92.08 kg Phanigayle Ambrocio DO Work Phone: [facility] 03-01-2024 11:07-0500 Diastolic blood pressure 52 mm[Hg] Phani Ambrocio DO Work Phone: [facility] 03-01-2024 11:07-0500 Heart rate 49 /min Phanigayle Ambrocio DO Work Phone: [facility] 03-01-2024 11:07-0500 SaO2% (BldA) [Mass fraction] 97 % Phanigayle Ambrocio DO Work Phone: [facility] 03-01-2024 11:07-0500 Systolic blood pressure 102 mm[Hg] Phani Ambrocio DO Work Phone: [facility] 10-27-2023 15:12-0400 Body height 167.64 cm DO Phaingayle Ambrocio Work Phone: [facility] 10-27-2023 15:12-0400 Body mass index (BMI) [Ratio] 30.7 kg/m2 DO Phani Ricci Work Phone: [facility] 10-27-2023 15:12-0400 Body weight 86.18 kg DO Phani Stevensonman Work Phone: [facility] 10-27-2023 15:12-0400 Diastolic blood pressure 87 mm[Hg] DO Phani Ambrocio Work Phone: [facility] 10-27-2023 15:12-0400 Heart rate 53 /min DO Phani Ambrocio Work Phone: [facility] 10-27-2023 15:12-0400 SaO2% (BldA) [Mass fraction] 96 % DO Phani Ambrocio Work Phone: [facility] 10-27-2023 15:12-0400 Systolic blood pressure 125 mm[Hg] DO Phani Ambrocio Work Phone: [facility] 08-01-2023 15:01-0400 Body height 167.6 cm Kristofer Ortega MD Work Phone: [facility] 08-01-2023 15:01-0400 Body mass index (BMI) [Ratio] 29.86 kg/m2 Kristofer Ortega MD Work Phone: [facility] 08-01-2023 15:01-0400 Body weight 83.92 kg Kristofer Ortega MD Work Phone: [facility] 08-01-2023 15:01-0400 Diastolic blood pressure 62 mm[Hg] Kristofer Ortega MD Work Phone: [facility] 08-01-2023 15:01-0400 Heart rate 58 /min Kristofer Ortega MD Work Phone: [facility] 08-01-2023 15:01-0400 Systolic blood pressure 126 mm[Hg] Kristofer Ortega MD Work Phone: [facility] 12-01-2022 11:22-0400 Body height 168.91 cm Phani Ambrocio Work Phone: [facility] 250 DO Work Phone: 12-01-2022 11:22-0400 Body mass index (BMI) [Ratio] 31.96 kg/m2 Phani Ambrocio Work Phone: [facility] 250 DO Work Phone: 12-01-2022 11:22-0400 Body surface area Derived from formula 2.02 m2 Phani Ambrocio Work Phone: [facility] [place] 250 DO Work Phone: 12-01-2022 11:22-0400 Body weight 91.17 kg Phani Ambrocio Work Phone: [facility] 250 DO Work Phone: 12-01-2022 11:22-0400 Diastolic blood pressure 58 mm[Hg] Phani Ambrocio Work Phone: [facility] [place] 250 DO Work Phone: 12-01-2022 11:22-0400 Heart rate 60 /min Phani Ambrocio Work Phone: [facility] [place] 250 DO Work Phone: 12-01-2022 11:22-0400 Systolic blood pressure 128 mm[Hg] Phani Ambrocio Work Phone: [facility] [place] 250 DO Work Phone: 10-28-2022 13:00-0400 Body height 167.64 cm Lali Garcia Other [employer] Other 10-28-2022 13:00-0400 Body mass index (BMI) [Ratio] 33.73 kg/m2 Lali Garcia Other [employer] Other 10-28-2022 13:00-0400 Body weight 94.8 kg Lali Garcia Other [employer] Other 10-28-2022 13:00-0400 Diastolic blood pressure 61 mm[Hg] Lali Garcia Other [employer] Other 10-28-2022 13:00-0400 SaO2% (BldA) [Mass fraction] 93 % Lali Garcia Other [employer] Other 10-28-2022 13:00-0400 Systolic blood pressure 139 mm[Hg] LaliMovidius Other [employer] Other 05-19-2022 10:42-0500 Body height 168.91 cm Phani [facility]rocio [facility] [place] [facility] Work Phone: 05-19-2022 10:42-0500 Body mass index (BMI) [Ratio] 34.02 kg/m2 Phani Ambrocio Work Phone: [facility] [place] DO Work Phone: 05-19-2022 10:42-0500 Body surface area Derived from formula 2.07 m2 Phani Ambrocio Work Phone: [facility] [employer] 250 DO Work Phone: 05-19-2022 10:42-0500 Body weight 97.07 kg Phani Ambrocio Work Phone: [facility] [employer] 250 DO Work Phone: 05-19-2022 10:42-0500 Diastolic blood pressure 64 mm[Hg] Phani Ambrocio Work Phone: [facility] [employer] 250 DO Work Phone: 05-19-2022 10:42-0500 Heart rate 56 /min Phani Ambrocio Work Phone: [facility] [employer] 250 DO Work Phone: 05-19-2022 10:42-0500 Systolic blood pressure 118 mm[Hg] Phani Ambrocio Work Phone: [facility] 250 DO Work Phone: 05-13-2021 11:30-0500 Body height 168.91 cm Phani Ambrocio Work Phone: [facility] 250 DO Work Phone: 05-13-2021 11:30-0500 Body mass index (BMI) [Ratio] 35.87 kg/m2 Phani Ambrocio Work Phone: [facility] 250 DO Work Phone: 05-13-2021 11:30-0500 Body surface area Derived from formula 2.12 m2 Phani Ambrocio Work Phone: [facility] 250 DO Work Phone: 05-13-2021 11:30-0500 Body weight 102.33 kg Phani Ambrocio Work Phone: [facility] 250 DO Work Phone: 05-13-2021 11:30-0500 Diastolic blood pressure 58 mm[Hg] Phani Ambrocio Work Phone: [facility] 250 DO Work Phone: 05-13-2021 11:30-0500 Heart rate 58 /min Phani Ambrocio Work Phone: [facility] 250 DO Work Phone: 05-13-2021 11:30-0500 Systolic blood pressure 108 mm[Hg] Phani Ambrocio Work Phone: [facility] 250 DO Work Phone: Encounters Encounter Date Encounter Type Care Provider Facility Start: 05-31-2024 End: 05-31-2024 Patient encounter procedure Phani Ambrocio DO Work Phone: [facility] Comment on above: Type 2 diabetes lorenzo itus with other specified complication, without long-term current use of insulin ([facility]) (Primary Dx) Start: 05-25-2024 Non-patient / Non-visit Madison Ambrocio DO Work Phone: [facility] Work Phone: Start: 05-23-2024 End: 05-28-2024 ambulatory Phani Ambrocio Facility:[facility] Start: 05-23-2024 End: 05-28-2024 Evaluation and management of inpatient Phani Ambrocio DO Work Phone: [facility] Work Phone: Start: 05-23-2024 End: 05-28-2024 observation encounter Phani Ambrocio DO Work Phone: [facility] Work Phone: Start: 05-18-2024 End: 05-18-2024 Emergency department patient visit Phani Ambrocio DO Work Phone: [facility]Emergency Room Work Phone: Start: 05-17-2024 End: 05-17-2024 Bamboo flowsheet Checo Baeza MD Work Phone: [facility] Start: 05-17-2024 End: 05-17-2024 Bamboo flowsheet Checo Baeza MD Work Phone: [facility] Start: 05-17-2024 End: 05-17-2024 Office outpatient visit 15 minutes Checo Baeza MD Work Phone: [facility] Comment on above: Herpes zoster withou t complication (Primary Dx); Seborrheic keratosis, inflamed; Seborrheic keratosis; Actinic keratosis Start: 05-17-2024 End: 05-17-2024 ambulatory CHECO BAEZA Not Available Start: 03-01-2024 End: 03-01-2024 Office outpatient visit 40 minutes Phani Ambrocio DO Work Phone: [facility] Comment on above: Essential hypertensi on (CMS/HCC) (Primary Dx); Type 2 diabetes mellitus with other specified complication, without long-term current use of insulin (CMS/HCC); Mixed hyperlipidemia (CMS/HCC); Coronary artery disease involving [place] heart without angina pectoris, unspecified vessel or lesion type (CMS/HCC); MICHAEL on CPAP; MCI (mild cognitive impairment); Need for immunization against influenza; Class 1 obesity due to excess calories with serious comorbidity and body mass index (BMI) of 32.0 to 32.9 in adult; Medication management; Hypotension, unspecified hypotension type Start: 03-01-2024 End: 03-01-2024 ambulatory PHANI AMBROCIO Not Available Start: 02-27-2024 End: 02-28-2024 External Result Encounter Phani Ambrocio DO Work Phone: [facility] Unsolicited Start: 02-27-2024 End: 02-28-2024 External Result Encounter Phani Ambrocio DO Work Phone: [facility] Unsolicited Start: 02-27-2024 End: 02-27-2024 Patient encounter procedure Phani Ambrocio DO Work Phone: [facility] Start: 02-27-2024 End: 02-27-2024 ambulatory Phani Ambrocio Facility:[facility] Start: 02-23-2024 End: 02-23-2024 ambulatory [facility] Start: 11-16-2023 End: 11-17-2023 External Result Encounter Phani Ambrocio DO Work Phone: [facility] Unsolicited Start: 11-16-2023 End: 11-17-2023 External Result Encounter Phani Ambrocio DO Work Phone: [facility] Unsolicited Start: 11-16-2023 End: 11-16-2023 Patient encounter procedure DO Phani Ambrocio Work Phone: [facility] Start: 11-16-2023 End: 11-16-2023 ambulatory DO Phani Ambrocio Work Phone: [facility] Work Phone: Start: 10-27-2023 End: 10-27-2023 ambulatory DO Phani Ambrocio Work Phone: [facility] Work Phone: Start: 10-27-2023 End: 10-27-2023 Patient encounter procedure DO hPani Ambrocio Work Phone: [facility] Work Phone: Start: 08-31-2023 End: 08-31-2023 ambulatory PHANI AMBROCIO Not Available Start: 08-25-2023 End: 08-25-2023 Patient encounter procedure DO Phani Ambrocio Work Phone: [facility] Start: 08-25-2023 End: 08-25-2023 ambulatory DO Phani Ambrocio Work Phone: [facility] Work Phone: Start: 08-01-2023 End: 08-01-2023 ambulatory KRISTOFER Boyd [facility] Start: 08-01-2023 End: 08-01-2023 Office outpatient visit 25 minutes Kristofer Ortega MD Work Phone: [facility] Comment on above: Atherosclerosis of c oronary artery, unspecified vessel or lesion type, unspecified whether angina present, unspecified whether [place] or transplanted heart (Primary Dx); Status post coronary angioplasty; Hyperlipidemia, unspecified hyperlipidemia type; Type 2 diabetes mellitus without complication, unspecified whether jail insulin use (Multi); Sleep apnea, unspecified type; Former smoker; Overweight (BMI 25.0-29.9); At risk for falls Start: 02-21-2023 End: 02-21-2023 ambulatory DO Phani Ambrocio Work Phone: [facility] Work Phone: Start: 02-21-2023 End: 02-21-2023 Patient encounter procedure DO Phani Ambrocio Work Phone: [facility] Start: 12-01-2022 Office outpatient vi sit 25 minutes Phani Ambrocio Work Phone: [facility] 250 DO Work Phone: Start: 12-01-2022 ambulatory Kristofer Taylorim Facility : Start: 10-28-2022 End: 10-28-2022 ambulatory Lali Garcia Other [facility] Other Start: 10-28-2022 Office outpatient vi sit 25 minutes Lali Garcia [facility] Start: 05-26-[address] Phani Nixon Facility:44 Start: 05-19-2022 Office outpatient vi sit 25 minutes Phani Ambrocio Work Phone: [facility] 250 DO Work Phone: Start: 05-19-2022 ambulatory Kristofer Taylorim Facility : Start: 11-17-2021 End: 11-17-2021 Patient encounter procedure DO Phani Ambrocio Work Phone: [facility] Start: 09-15-2021 Rx Renewal Phani villagran Work Phone: [facility] 250 DO Work Phone: Start: 05-13-2021 Office outpatient vi sit 25 minutes Phani Ambrocio Work Phone: [facility] 250 DO Work Phone: Start: 01-15-2021 ([facility] C Vac) [facility] Co vid Vaccine Teresa Martinez [facility] Start: 01-15-2021 End: 01-15-2021 ambulatory Teresa Martinez Other [place] Other Start: 01-05-2018 Patient encounter KRISTOFER Lawton ility:[id number] Procedures Date Procedure Procedure Detail Performing Clinician Start: 05-26-2024 MRI of head Phani schwartz DO Work Phone: Start: 05-23-2024 CT of head without contrast Phani Ambrocio DO Work Phone: Start: 05-23-2024 Plain chest X-ray Ashley Ambrocio DO Work Phone: Start: 05-18-2024 CT of head without contrast Phani Ambrocio DO Work Phone: Start: 05-18-2024 Plain chest X-ray Ashley Ambrocio DO Work Phone: Start: 05-18-2024 Viral nucleic acid assay Phani Ambrocio DO Work Phone: Start: 05-17-2024 End: 05-17-2024 CRYOTHERAPY SKIN LESION Checo Baeza MD Work Phone: Start: 02-27-2024 Complete blood count with white cell differential, automated Phani Ambrocio DO Work Phone: Start: 02-27-2024 Comprehensive metabo lic panel Phani Ambrocio DO Work Phone: Start: 02-27-2024 Lipid panel Phani Ambrocio DO Work Phone: Start: 02-27-2024 Urine albumin quantitative Phani Ambrocio DO Work Phone: Start: 11-16-2023 Urine albumin quantitative Phani Ambrocio DO Work Phone: Start: 11-16-2023 Complete blood count with white cell differential, automated Phani Ambrocio DO Work Phone: Start: 11-16-2023 Hemoglobin glycosylated a1c Phani Ambrocio DO Work Phone: Start: 09-18-2019 Lipid 1996 panel - S grady or Plasma Kristofer Ortega MD Work Phone: Cataract surgery Phani Lucia iamsparkle Work Phone: History of percutane ous transluminal coronary angioplasty History of PTCA Phani Ambrocio Work Phone: Percutaneous translu sergio coronary angioplasty Phani Ambrocio Work Phone: Total colonoscopy Phani Ambrocio Work Phone: Plan of Treatment Date Care Activity Detail Author Start: 05-16-2025 End: 05-16-2025 Patient encounter procedure 05/16/2025 11:35 AM EST Office Visit [facility] [address] [place] [phone] Checo Baeza MD [address] [place] [address] [facility] Start: 02-26-2025 Urine screening for protein Diabetes: Urine Protein Screening [facility] Start: 11-15-2024 Urine screening for protein Diabetes: Urine Protein Screening [facility] Start: 08-30-2024 End: 03-01-2025 CBC W Auto Differential panel - Blood CBC and differential Lab Routine Essential hypertension ([facility]/HCC) Medication management Expected: 08/30/2024 (Approximate), Expires: 03/01/2025 [facility] Work Phone: Comment on above: Expected: 08/30/2024 (Approximate), Expires: 03/01/2025 Start: 08-30-2024 End: 03-01-2025 Comprehensive metabolic 2000 panel - Serum or Plasma Comprehensive metabolic panel Lab Routine Essential hypertension (CMS/HCC) Medication management Expected: 08/30/2024 (Approximate), Expires: 03/01/2025 [facility] Comment on above: Expected: 08/30/2024 (Approximate), Expires: 03/01/2025 Start: 08-30-2024 End: 03-01-2025 Hemoglobin a1c with eag Hemoglobin a1c with eag Lab Routine Type 2 diabetes mellitus with other specified complication, without long-term current use of insulin (CMS/HCC) Expected: 08/30/2024 (Approximate), Expires: 03/01/2025 [facility] Comment on above: Expected: 08/30/2024 (Approximate), Expires: 03/01/2025 Start: 08-30-2024 End: 03-01-2025 Lipid 1996 panel - Serum or Plasma Lipid panel Lab Routine Mixed hyperlipidemia ([facility]/HCC) Expected: 08/30/2024 (Approximate), Expires: 03/01/2025 [facility] Comment on above: Expected: 08/30/2024 (Approximate), Expires: 03/01/2025 Start: 08-30-2024 End: 03-01-2025 Microalbumin/Creatinine panel in random Urine Microalbumin / creatinine urine ratio Lab Routine Essential hypertension ([facility]) Medication management Expected: 08/30/2024 (Approximate), Expires: 03/01/2025 [facility] Comment on above: Expected: 08/30/2024 (Approximate), Expires: 03/01/2025 Start: 08-30-2024 End: 03-01-2025 Thyrotropin [Units/volume] in Serum or Plasma TSH Lab Routine Essential hypertension ([facility]) Medication management Expected: 08/30/2024 (Approximate), Expires: 03/01/2025 [facility] Comment on above: Expected: 08/30/2024 (Approximate), Expires: 03/01/2025 Start: 08-02-2024 End: 08-02-2024 Patient encounter procedure 08/02/2024 10:45 AM EDT Office [facility] [address] [place] [phone] Phani Ambrocio DO [address] [place] [address] [facility] Start: 07-02-2024 End: 07-02-2024 Patient encounter procedure 07/02/2024 3:05 PM EDT Office Visit [facility] [address] [place] [phone] Checo Baeza MD [address] [place] [address] [facility] Start: 06-27-2024 End: 06-27-2024 Patient encounter procedure 06/27/2024 10:00 AM EDT Office Visit [facility] [address] [place] [address] Soledad Matthew PA [address] [place] [address] [facility] Start: 05-28-2024 [facility] Start: 05-27-2024 Hemoglobin A1c measurement Diabetes: Hemoglobin A1C [facility] Start: 05-24-2024 Referral to rehabilitation physician [facility] Start: 05-24-2024 End: 05-24-2024 [facility] Start: 05-23-2024 Referral to neurologist [facility] Start: 05-23-2024 Physical therapy procedure [facility] Start: 05-23-2024 Referral to occupati onal therapist [facility] Start: 05-23-2024 [facility] Start: 05-23-2024 Hospital admission [facility] Start: 05-17-2024 End: 05-17-2024 Patient encounter procedure [facility] Comment on above: Arrived Start: 03-01-2024 End: 03-01-2024 Patient encounter procedure 03/01/2024 10:30 AM EST Office Visit [facility] [address] [place] [phone] Phani Ambrocio DO [address] [place] [address] [facility] Start: 02-23-2024 End: 02-23-2024 Patient encounter procedure 02/23/2024 9:30 AM EST Office Visit [facility] [address] [place] [phone] Kristofer Ortega MD [address] [place], [place] [id number] [facility] Start: 02-15-2024 Hemoglobin A1c measurement Diabetes: Hemoglobin A1C [facility] Start: 11-25-2023 Hemoglobin A1c measurement Diabetes: Hemoglobin A1C [facility] Start: 11-16-2023 [facility] Start: 11-13-2023 Influenza vaccination Influenza Vacc ine (#1) [facility] Start: 08-31-2023 COVID-19 Vaccine () COVID-19 Vaccine () [facility] Start: 08-25-2023 [facility] Start: 08-20-2023 Urine screening for protein Diabetes: Urine Protein Screening [facility] Start: 02-21-2023 [facility] Start: 01-08-2023 Glaucoma screening Diabetes: R etinopathy Screening [facility] Start: 12-01-2022 FUV, Provider: Kristofer Ortega, Status: Pen, Time: 11:10 AM FUV, Provider: Kristofer Ortega, Status: Pen, Time: 11:[address] [facility] [address] DO Work Phone: Start: 05-26-2022 CAROTID, Provider: [place] [facility] ULTRASOUND 01,[id number], Status: Pen, Time: 8:45 AM CAROTID, Provider: [place] [facility] ULTRASOUND 01,[id number], Status: Pen, Time: 8:[address] [facility] [address] DO Work Phone: Start: 11-25-2021 FUV, Provider: Kristofer Ortega, Status: Pen, Time: 11:00 AM FUV, Provider: Kristofer Ortega, Status: Pen, Time: 11:[address] [facility] [address] DO Work Phone: Start: 11-17-2021 [facility] Work Phone: Start: 09-17-2020 Lipid panel Lipid Panel [facility] Start: 03-19-2020 Glaucoma screening Diabetes: R etinopathy Screening [facility] Start: 10-15-2016 Zoster Vaccines (2 of 3) Zoster Vacc vamsi (2 of 3) [facility] Start: 2002 RSV patient s and/or patients aged 60+ years (1 - 1-dose 60+ series) RSV patients and/or patients aged 60+ years (1 - 1-dose 60+ series) [facility] Start: 1964 DTaP/Tdap/Td Vaccine s (1 - Tdap) DTaP/Tdap/Td Vaccines (1 - Tdap) [facility] Start: 1961 Urine screening for protein Diabetes: Urine Protein Screening [facility] Start: 1952 Diabetic foot examination Diabetes: Foot Exam [facility] Start: 1942 Hemoglobin A1c measurement Diabetes: Hemoglobin A1C [facility] Start: 1942 Medicare Annual Well ness Visit Medicare Annual Wellness Visit (AWV) [facility] Albumin [Mass/volume ] in Serum or Plasma [facility] Albumin/Globulin ratio [facility] Anion gap measurement [facility] Basophils [#/volume] in Blood by Automated count [facility] Basophils/100 leukoc ytes in Blood by Automated count [facility] Calculated LDL cholesterol level [facility] Cholesterol.total/Ch oles terol in HDL [Mass Ratio] in Serum or Plasma [facility] Comprehensive metabo lic 2000 panel - Serum or Plasma Comprehensive metabolic panel Lab Routine 11/16/2023 1:[address] [facility] Work Phone: Electrophoresis: [id number] [facility] Electrophoresis: [id number] [facility] Electrophoresis: beta-globulin [facility] Electrophoresis: naldo ma globulin [facility] Eosinophils/100 leukocytes in Blood by Automated count [facility] Erythrocyte distribu tion width [Ratio] by Automated count [facility] Erythrocytes [#/volu me] in Blood [facility] Globulin [Mass/volum e] in Serum [facility] Glucose measurement estimated from glycated hemoglobin [facility] Work Phone: Glucose measurement estimated from glycated hemoglobin [facility] Glucose measurement estimated from glycated hemoglobin [facility] Glucose measurement estimated from glycated hemoglobin [facility] Glucose measurement estimated from [facility] hemoglobin [facility] Hematocrit [Volume Fraction] of Blood [facility] Hemoglobin [Mass/vol ume] in Blood [facility] Hemoglobin A1c/Hemoglobin.total in Blood [facility] Work Phone: Hemoglobin A1c/Hemoglobin.total in Blood [facility] IgA [Mass/volume] in Serum or Plasma [facility] IgG [Mass/volume] in Serum or Plasma [facility] IgM [Mass/volume] in Serum or Plasma [facility] Leukocytes [#/volume ] corrected for nucleated erythrocytes in Blood by Automated coun [facility] Leukocytes [#/volume ] in Blood [facility] Lipid 1996 panel - S grady or Plasma Lipid panel Lab Routine 11/16/2023 1:33 PM EDT [facility] Lymphocytes [#/volum e] in Blood by Automated count [facility] Lymphocytes/100 leukocytes in Blood by Automated count [facility] MCH [Entitic mass] b y Automated count [facility] MCHC [Mass/volume] b y Automated count [facility] MCV [Entitic volume] by Automated count [facility] Monocytes [#/volume] in Blood by Automated count [facility] Monocytes/100 leukoc ytes in Blood by Automated count [facility] Neutrophils [#/volum e] in Blood by Automated count [facility] Neutrophils/100 leukocytes in Blood by Automated count [facility] Nucleated erythrocyt es [Presence] in Blood by Automated count [facility] Patient Education Tremor Weakness [facility] Work Phone: Patient referral [facility] Work Phone: Platelet mean volume [Entitic volume] in Blood by Automated count [facility] Platelets [#/volume] in Blood [facility] Protein [Mass/volume ] in Serum or Plasma [facility] Reagin Ab [Presence] in Serum by RPR [facility] Serum immunofixation [facility] VLDL cholesterol measurement [facility] Immunizations Immunization Date Immunization Notes Care Provider Fa cility 05-23-2024 tetanus toxoid, redu sandra diphtheria toxoid, and acellular pertussis vaccine, adsorbed Phani Ambrocio DO Work Phone: [facility] 03-01-2024 Seasonal trivalent influenza vaccine, adjuvanted, preservative free Phani Ambrocio DO Work Phone: [facility] 11-29-2022 Fluad Quadrivalent 0 .5 ML Intramuscular Prefilled Syringe Phani Ambrocio Work Phone: [facility] 11-29-2022 influenza virus vaccine, unspecified formulation Phani Ambrocio DO Work Phone: [facility] 11-24-2021 influenza, high dose seasonal, preservative-free [facility] Work Phone: 01-15-2021 COVID-19 Moderna Teresa Fitt Other [facility] 01-14-2021 Moderna SARS-CoV-2 Booster Vaccination Phani Ambrocio DO Work Phone: [facility] 12-04-2020 influenza, high dose seasonal, preservative-free Phani Ambrocio Work Phone: [facility] Taodyne DO Work Phone: 05-29-2020 Moderna COVID-19 Vaccine 100 MCG/0.5ML Intramuscular Suspension Phani Ambrocio Work Phone: [facility] 05-01-2020 Moderna COVID-19 Vaccine 100 MCG/0.5ML Intramuscular Suspension Phani Ambrocio Work Phone: [facility] 12-17-2019 Seasonal trivalent influenza vaccine, adjuvanted, preservative free Phani Ambrocio Work Phone: [facility] 250 DO Work Phone: 01-01-2019 pneumococcal conjuga te vaccine, 13 valent Phani Ambrocio Work Phone: [facility] 250 DO Work Phone: 12-31-2018 pneumococcal conjuga te vaccine, 13 valent Phani Ambrocio DO Work Phone: [facility] 11-12-2018 influenza virus vaccine, unspecified formulation Phani Stevensonman Work Phone: [facility] 250 DO Work Phone: 11-12-2018 influenza, seasonal, injectable Kristofer Ortega MD Work Phone: [facility] Work Phone: 09-27-2018 pneumococcal conjuga te vaccine, 13 valent Phani Escobar Ricci Work Phone: [place] [address] DO Work Phone: 09-27-2018 pneumococcal polysaccharide vaccine, 23 valent Phani Stevensonman Work Phone: [place] [address] DO Work Phone: 01-07-2018 Seasonal trivalent influenza vaccine, adjuvanted, preservative free Phani Stevensonman Work Phone: [place] [address] DO Work Phone: 12-12-2017 influenza virus vaccine, unspecified formulation Phani Stevensonman Work Phone: [place] [address] DO Work Phone: 08-20-2016 zoster vaccine, live Phani Stevensonman Work Phone: [place] [address] DO Work Phone: 06-24-2016 pneumococcal conjuga te vaccine, 13 valent Phani Stevensonman Work Phone: [facility] 250 DO Work Phone: 12-10-2015 influenza virus vaccine, unspecified formulation DO Phanigayle Ambrocio Work Phone: [facility] 12-10-2015 influenza, high dose seasonal, preservative-free Teresa Martinez Other [facility] Other 11-13-2015 influenza virus vaccine, unspecified formulation Phani Stevensonman Work Phone: [place] [address] DO Work Phone: 01-12-2015 influenza virus vaccine, unspecified formulation Phani Escobar Ricci Work Phone: [place] [address] DO Work Phone: 12-05-2014 influenza, injectabl e, quadrivalent, contains preservative Teresa Fitt Other [facility] 12-05-2014 influenza, injectabl e, quadrivalent, preservative free Phani Luz Ricic Work Phone: [place] [address] DO Work Phone: 01-14-2014 influenza, injectabl e, quadrivalent, contains preservative Teresa Fitt Other [facility] 01-12-2014 influenza virus vaccine, unspecified formulation Phani Stevensonman Work Phone: [place] [address] DO Work Phone: 11-30-2012 influenza, injectabl e, quadrivalent, contains preservative Teresa Fitt Other [facility] 03-14-2012 pneumococcal polysaccharide vaccine, 23 valent Phani A Ricci Work Phone: [place] [address] DO Work Phone: 12-02-2011 pneumococcal polysaccharide vaccine, 23 valent Teresa Fitt Other [facility] 12-02-2011 influenza, injectabl e, quadrivalent, contains preservative Teresa Fitt Other [facility] influenza virus vaccine, unspecified formulation Phani Stevensonman Work Phone: [facility] [address] DO Work Phone: Comment on above: 2013 Payers Date Payer Category Payer Self-pay [id number] 2012 [facility] BCBS [id number] 2012 Unknown 2009 Unknown [id number] 2007 Medicare [id number] 2007 Medicare [id number] 1942 Unknown [id number] 9.2.355 1942 Unknown [id number] [id number] 9.2.1068 1942 Unknown [id number] 9.2.356 1942 Unknown [id number] 9.2.356 1942 Unknown [id number] 9.2.1244 1942 Unknown [id number] 9.2.1244 1942 Unknown [id number] 9.2.1259 1942 Unknown [id number] 9.2.1259 1942 Unknown [id number] 9.2.1259 Medicare [id number] Unknown [id number] 9.2.531 Unknown [id number] 9.2.531 Unknown [id number] 9.2.531 Unknown [id number] 9.2.531 Unknown [id number] 9.2.531 Social History Date Type Detail Facility Start: 08-01-2023 End: 08-31-[address] [facility] Comment on above: rarely occasional; 4 cups of coffee 12 oz cups; Start: 08-01-2023 End: 08-31-[address] [facility] Start: 1940 Sex Assigned At Male [facility] Start: 08-25-2022 End: 04-12-2023 Tobacco smoking status NHIS Ex-smoker [facility] Work Phone: End: 06-11-1985 History of tobacco use Current smoker [facility] Work Phone: End: 06-11-1985 History of tobacco use Cigarette Smoker [facility] Work Phone: Start: 08-01-2023 Alcoholic beverage intake Ex-drinker (finding) [facility] Work Phone: Start: 1940 Sex assigned at Not on file [facility] Work Phone: Start: 07-22-2023 End: 08-01-2023 Exposure to SARS-CoV-2 (event) Not sure [facility] Start: 08-25-2022 Tobacco use and exposure Smokeless tobacco non-user [facility] Start: 08-31-2023 End: 05-17-2024 Alcoholic beverage intake Current drinker of alcohol (finding) [facility] How often to you hav e a drink containing alcohol? Never [facility] Average Number of Drinks Not on file [facility] How often do you hav e 6 or more drinks on 1 occasion? Less than monthly [facility] Start: 08-25-2022 Tobacco Comment Ex moderate ci garette smoker (10-19 cigarettes/day) [facility] Start: 08-25-2022 Alcohol Comment Alcohol: 6 or more drinks less than monthly; 1-2 drinks/monthly or less; Caffeine: 3-4 cups/day [facility] Start: 05-18-2024 End: 05-28-2024 Sex Male (finding) [facility] Start: 05-23-2024 [facility] ever smoked [facility] Start: 05-28-2024 SDOH Follow up SDOH Follow up [facility] Work Phone: Medical Equipment Procedure Code Equipment Code Equipment Origin al Text Equipment Identifier Dates [id number] Start: 08-02-2023 1 Device by Othe r route Daily Test daily [id number] Start: 08-02-2023 Goals Date Patient Goal Desired Activity /State Functional Status Date Assessment Result Facility 05-28-2024 Functional status Patient at Baseline [facility] Work Phone: 05-23-2024 Functional status Patient is Pro gressing Toward Baseline [facility] Work Phone: Mental Status Date Assessment Result Facility 05-28-2024 Cognitive function Cognitive Sta tus Patient at Baseline [facility] Work Phone: 05-23-2024 Cognitive function Cognitive Sta tus Patient Not at Baseline [facility] Work Phone: Clinical Notes 01-15-2021 to 05-28-2024 Note Date & Type Note Facility 05-28-2024 Progress note Note Date/Time May 28, 2024 10:29am [facility] [address] [place] [address] Hospitalist Progress Note Signed Patient: Des Jacob MR#: [id number] : 1940 Acct:[id number] Age/Sex: 83 / M Adm Date: 5 Loc: 3T Room: [address] [place] [address] Type: ADM INOo Attending Dr: Dread Toney DO Copies to: ~ Date of Service: 05/28/2024 Subjective Subjective Narrative: Seen and evaluated, patient is currently laying in bed, he is awake, he is pleasant, he is alert and ordered by 3 this morning. Exam Physical Exam Vital Signs: Temp Pulse Resp BP Pulse Ox O2 Del Method 97.4 F L 61 18 176/73 H 95 Room Air 05/28/24 08:54 05/28/24 08:54 05/28/24 08:54 05/28/24 08:54 05/28/24 08:54 05/28/24 08:54 Narrative: General: Awake alert to person and time, he is very pleasant. HEENT: 3cm healing laceration above his right eye, it is scabbed over. No active bleeding or drainage. No surrounding erythema. Neck: supple no masses, no lymphadenopathy CVS: regular rate and rhythm, no murmurs or gallops Respiratory: clear to auscultation bilaterally, no wheezing or crackles, symmetric expansion GI: soft, nondistended, nontender, positive bowel sounds with no organomegaly Extremity: moves all extremities, no restrictions of movements, no calf tenderness, no edema, large 6 cm laceration on his left arm which is scabbed over, no bleeding or surrounding erythema. Numerous small hematomas on his upper extremities. Neuro: AOx3 today, CN II-VII intact. Moves all extremities in all planes of motion. Skin: dry, intact no rashes or lesions Objective Lab Results 05/28/24 05:23 05/28/24 05:23 Meds Allergies and Active Meds Allergies No Known Allergies Allergy (Verified 05/18/24 16:47) Active Meds: Active Medications Generic Name Dose Route Start Last Admin Trade Name Freq PRN Reason Stop Dose Admin Acetaminophen 650 mg 05/23/24 13:10 Acetaminophen 325 Mg Tablet PO 05/23/25 13:09 Q6HR PRN Pain Scale 1 - 3 or fever Hydrocodone Bitart/Acetaminophen 1 tab 05/23/24 13:10 Hydrocodone/Acetaminophen 5-325 Mg Tablet PO Q4H PRN Pain Scale 4 - 7 Aspirin 81 mg 05/25/24 09:00 05/28/24 08:55 Aspirin 81 Mg Tablet.Dr PO 05/25/25 08:59 81 mg DAILY MG Administration Atorvastatin Calcium 40 mg 05/25/24 09:00 05/28/24 08:55 Atorvastatin 40 Mg Tablet PO 05/25/25 08:59 40 mg DAILY MG Administration Enoxaparin Sodium 40 mg 05/24/24 10:00 05/28/24 09:59 Enoxaparin 40 Mg/0.4 Ml Syringe SUBCUT 05/24/25 09:59 Not Given DAILY@10 MG Ergocalciferol 1,250 mcg 05/24/24 09:00 05/24/24 08:35 Ergocalciferol 1,250 Mcg (50,000 Units) Capsule PO 05/24/25 08:59 1,250 mcg Th@0900 MG Administration Fluoxetine HCl 40 mg 05/25/24 09:00 05/28/24 08:55 Fluoxetine 20 Mg Capsule PO 05/25/25 08:59 40 mg DAILY MG Administration Melatonin 5 mg 05/23/24 13:10 05/27/24 21:27 Melatonin 5 Mg Tablet PO 05/23/25 13:09 5 mg QHS PRN Administration Insomnia Memantine 10 mg 05/24/24 15:15 05/28/24 08:55 Memantine 10 Mg Tablet PO 05/24/25 15:14 10 mg DAILY MG Administration Metformin HCl 500 mg 05/24/24 21:00 05/28/24 08:55 Metformin 500 Mg Tablet PO 05/24/25 20:59 500 mg BID MG Administration Ondansetron HCl 4 mg 05/23/24 13:10 Ondansetron 4 Mg/2 Ml Vial IV-PUSH 05/23/25 13:09 Q8H PRN Nausea And Vomiting Quetiapine Fumarate 25 mg 05/26/24 22:00 05/27/24 21:27 Quetiapine Fumarate 25 Mg Tablet PO 05/26/25 21:59 25 mg QHS MG Administration Sodium Chloride 0 ml 05/23/24 07:20 05/24/24 08:36 Sodium Chloride 0.9 % 10 Ml Syringe IV-PUSH 05/23/25 07:19 10 ml PRN PRN Administration Flush A&P - Hospitalist Assessment/Plan (1) Tremor: Plan: ? Patient has had numerous falls lately with increased tremors ? PT OT consulted ? His BMP was within normal limits, hemoglobin is stable. ? TSH normal ? Continue vitamin D therapy ? Neurology on consult for continuation of workup - MRi completed read as no acute intracranial process ? Pending SNF for discharge (2) Weakness: Plan: See above (3) Hypertension: Plan: ? He is on no antihypertensive medications and he is quite orthostatic. ? He has been having orthostatic vital signs taken daily, this morning while he was supine he was 180/88, while standing he was 116/68. Have discussed this with the bedside RNs, at this point in time there is no antihypertensives ordered do not plan on ordering them due to concerns for having hypotension while he is standing and causing more falls. (4) Orthostatic hypotension: Plan: ? He does have a positive orthostatic blood pressure however he does not really seem symptomatic with this, due to this I will not treat his hypertensive blood pressure numbers. (5) Dementia: Plan: Stable and is baseline (6) Recurrent falls: Plan ? DVT prophylaxis addressed ? Regular diet ? Full code Documented By: Dread Toney DO 05/28/24 1027 Signed By: <Electronically signed by Dread Toney DO> 05/28/24 [facility]9 [facility] Work Phone: 1(365) 921-150303-17-2025 [place] [address] Hospitalist Progress Note Signed Patient: Des Jacob MR#: [id number] 406 : 1940 Acct:[id number] Age/Sex: 83 / M Adm Date: 5 Loc: Room: [address] [place] [address] Type: ADM INOo Attending Dr: Dread Toney DO Copies to: ~ Date of Service: 05/28/2024 Subjective Subjective Narrative: Seen and evaluated, patient is currently laying in bed, he is awake, he is pleasant, he is alert and ordered by 3 this morning. Exam Physical Exam Vital Signs: Temp Pulse Resp BP Pulse Ox O2 Del Method 97.4 F L 61 18 176/73 H 95 Room Air 05/28/24 08:54 05/28/24 08:54 05/28/24 08:54 05/28/24 08:54 05/28/24 08:54 05/28/24 08:54 Narrative: General: Awake alert to person and time, he is very pleasant. HEENT: 3cm healing laceration above his right eye, it is scabbed over. No active bleeding or drainage. No surrounding erythema. Neck: supple no masses, no lymphadenopathy CVS: regular rate and rhythm, no murmurs or gallops Respiratory: clear to auscultation bilaterally, no wheezing or crackles, symmetric expansion GI: soft, nondistended, nontender, positive bowel sounds with no organomegaly Extremity: moves all extremities, no restrictions of movements, no calf tenderness, no edema, large6 cm laceration on his left arm which is scabbed over, no bleeding or surrounding erythema. Numerous small hematomas on his upper extremities. Neuro: AOx3 today, CN II-VII intact. Moves all extremities in all planes of motion. Skin: dry, intact no rashes or lesions Objective Lab Results 05/28/24 05:23 05/28/24 05:23 Meds Allergies and Active Meds Allergies No Known Allergies Allergy (Verified 05/18/24 16:47) Active Meds: Active Medications Generic Name Dose Route Start Last Admin Trade Name Moq PRN Reason Stop Dose Admin Acetaminophen 650 mg 05/23/24 13:10 Acetaminophen 325 Mg Tablet PO 05/23/25 13:09 Q6HR PRN Pain Scale 1 - 3 or fever Hydrocodone Bitart/Acetaminophen 1 tab 05/23/24 13:10 Hydrocodone/Acetaminophen 5-325 Mg Tablet PO Q4H PRN Pain Scale 4 - 7 Aspirin 81 mg 05/25/24 09:00 05/28/24 08:55 Aspirin 81 Mg Tablet.Dr PO 05/25/25 08:59 81 mg DAILY MG Administration Atorvastatin Calcium 40 mg 05/25/24 09:00 05/28/24 08:55 Atorvastatin 40 Mg Tablet PO 05/25/25 08:59 40 mg DAILY MG Administration Enoxaparin Sodium 40 mg 05/24/24 10:00 05/28/24 09:59 Enoxaparin 40 Mg/0.4 Ml Syringe SUBCUT 05/24/25 09:59 Not Given DAILY@10 MG Ergocalciferol 1,250 mcg 05/24/24 09:00 05/24/24 08:35 Ergocalciferol 1,250 Mcg (50,000 Units) Capsule PO 05/24/25 08:59 1,250 mcg Th@0900 MG Administration Fluoxetine HCl 40 mg 05/25/24 09:00 05/28/24 08:55 Fluoxetine 20 Mg Capsule PO 05/25/25 08:59 40 mg DAILY MG Administration Melatonin 5 mg 05/23/24 13:10 05/27/24 21:27 Melatonin 5 Mg Tablet PO 05/23/25 13:09 5 mg QHS PRN Administration Insomnia Memantine 10 mg 05/24/24 15:15 05/28/24 08:55 Memantine 10 Mg Tablet PO 05/24/25 15:14 10 mg DAILY MG Administration Metformin HCl 500 mg 05/24/24 21:00 05/28/24 08:55 Metformin 500 Mg Tablet PO 05/24/25 20:59 500 mg BID MG Administration Ondansetron HCl 4 mg 05/23/24 13:10 Ondansetron 4 Mg/2 Ml Vial IV-PUSH 05/23/25 13:09 Q8H PRN Nausea And Vomiting Quetiapine Fumarate 25 mg 05/26/24 22:00 05/27/24 21:27 Quetiapine Fumarate 25 Mg Tablet PO 05/26/25 21:59 25 mg QHS MG Administration Sodium Chloride 0 ml 05/23/24 07:20 05/24/24 08:36 Sodium Chloride 0.9 % 10 Ml Syringe IV-PUSH 05/23/25 07:19 10 ml PRN PRN Administration Flush A&P - Hospitalist Assessment/Plan (1) Tremor: Plan: ? Patient has had numerous falls lately with increased tremors ? PT OT consulted ? His BMP was within normal limits, hemoglobin is stable. ? TSH normal ? Continue vitamin D therapy ? Neurology on consult for continuation of workup - MRi completed read as no acute intracranial process ? Pending SNF for discharge (2) Weakness: Plan: See above (3) Hypertension: Plan: ? He is on no antihypertensive medications and he is quite orthostatic. ? He has been having orthostatic vital signs taken daily, this morning while he was supine he was 180/88, while standing he was 116/68. Have discussed this with the bedside RNs, at this point in timethere is no antihypertensives ordered do not plan on ordering them due to concerns for having hypotension while he is standing and causing more falls. (4) Orthostatic hypotension: Plan: ? He does have a positive orthostatic blood pressure however he does not really seem symptomatic with this, due to this I will not treat his hypertensive blood pressure numbers. (5) Dementia: Plan: Stable and is baseline (6) Recurrent falls: Plan ? DVT prophylaxis addressed ? Regular diet ? Full code Documented By: Dread Toney DO 05/28/24 102 Signed By: 05/28/24 1029 [facility]03-16-2025 Progress note Author Dread Toney [facility] Note Date/Time May 27, 2024 11: 09am [facility] EN[facility] [address] [place] [address] Hospitalist Progress Note Signed Patient: Des Jacob MR#: [id number] 406 : 1940 Acct:[id number] Age/Sex: 83 / M Adm Date: 5 Loc: Room: [address] [place] [address] Type: ADM INOo Attending Dr: Dread Toney DO Copies to: ~ Date of Service: 05/27/2024 Subjective Subjective Narrative: Seen and evaluated, he continues to be in the chair like most mornings, he remains in good spirits. He has no complaints at this point in time. Exam Physical Exam Vital Signs: Temp Pulse Resp BP Pulse Ox O2 Del Method 98.2 F 70 18 165/83 H 94 L Room Air 05/27/24 08:00 05/27/24 08:00 05/27/24 08:00 05/27/24 08:00 05/27/24 08:00 05/27/24 08:38 Narrative: General: Awake alert to person and time, he is very pleasant. HEENT: 3cm healing laceration above his right eye, it is scabbed over. No active bleeding or drainage. No surrounding erythema. Neck: supple no masses, no lymphadenopathy CVS: regular rate and rhythm, no murmurs or gallops Respiratory: clear to auscultation bilaterally, no wheezing or crackles, symmetric expansion GI: soft, nondistended, nontender, positive bowel sounds with no organomegaly Extremity: moves all extremities, no restrictions of movements, no calf tenderness, no edema, large 6 cm laceration on his left arm which is scabbed over, no bleeding or surrounding erythema. Numerous small hematomas on his upper extremities. Neuro: AOx3 today, CN II-VII intact. Moves all extremities in all planes of motion. Skin: dry, intact no rashes or lesions Objective Lab Results 05/24/24 06:12 05/24/24 06:12 Meds Allergies and Active Meds Allergies No Known Allergies Allergy (Verified 05/18/24 16:47) Active Meds: Active Medications Generic Name Dose Route Start Last Admin Trade Name Freq PRN Reason Stop Dose Admin Acetaminophen 650 mg 05/23/24 13:10 Acetaminophen 325 Mg Tablet PO 05/23/25 13:09 Q6HR PRN Pain Scale 1 - 3 or fever Hydrocodone Bitart/Acetaminophen 1 tab 05/23/24 13:10 Hydrocodone/Acetaminophen 5-325 Mg Tablet PO Q4H PRN Pain Scale 4 - 7 Aspirin 81 mg 05/25/24 09:00 05/27/24 08:40 Aspirin 81 Mg Tablet. PO 05/25/25 08:59 81 mg DAILY MG Administration Atorvastatin Calcium 40 mg 05/25/24 09:00 05/27/24 08:40 Atorvastatin 40 Mg Tablet PO 05/25/25 08:59 40 mg DAILY MG Administration Enoxaparin Sodium 40 mg 05/24/24 10:00 05/27/24 10:06 Enoxaparin 40 Mg/0.4 Ml Syringe SUBCUT 05/24/25 09:59 Not Given DAILY@10 MG Ergocalciferol 1,250 mcg 05/24/24 09:00 05/24/24 08:35 Ergocalciferol 1,250 Mcg (50,000 Units) Capsule PO 05/24/25 08:59 1,250 mcg Th@0900 MG Administration Fluoxetine HCl 40 mg 05/25/24 09:00 05/27/24 08:40 Fluoxetine 20 Mg Capsule PO 05/25/25 08:59 40 mg DAILY MG Administration Melatonin 5 mg 05/23/24 13:10 05/26/24 21:10 Melatonin 5 Mg Tablet PO 05/23/25 13:09 5 mg QHS PRN Administration Insomnia Memantine 10 mg 05/24/24 15:15 05/27/24 08:40 Memantine 10 Mg Tablet PO 05/24/25 15:14 10 mg DAILY MG Administration Metformin HCl 500 mg 05/24/24 21:00 05/27/24 08:40 Metformin 500 Mg Tablet PO 05/24/25 20:59 500 mg BID MG Administration Ondansetron HCl 4 mg 05/23/24 13:10 Ondansetron 4 Mg/2 Ml Vial IV-PUSH 05/23/25 13:09 Q8H PRN Nausea And Vomiting Quetiapine Fumarate 25 mg 05/26/24 22:00 05/26/24 21:10 Quetiapine Fumarate 25 Mg Tablet PO 05/26/25 21:59 25 mg QHS MG Administration Sodium Chloride 0 ml 05/23/24 07:20 05/24/24 08:36 Sodium Chloride 0.9 % 10 Ml Syringe IV-PUSH 05/23/25 07:19 10 ml PRN PRN Administration Flush A&P - Hospitalist Assessment/Plan (1) Tremor: Plan: ? Patient has had numerous falls lately with increased tremors ? PT OT consulted ? His BMP was within normal limits, hemoglobin is stable. ? TSH normal ? Continue vitamin D therapy ? Neurology on consult for continuation of workup - MRi completed read as no acute intracranial process ? Pending SNF for discharge (2) Weakness: Plan: See above (3) Hypertension: Plan: He is on no antihypertensive medications (4) Orthostatic hypotension: Plan: ? He does have a positive orthostatic blood pressure however he does not really seem symptomatic with this, due to this I will not treat his hypertensive blood pressure numbers. (5) Dementia: Plan: Stable and is baseline (6) Recurrent falls: Plan ? DVT prophylaxis addressed ? Regular diet ? Full code Documented By: Dread Toney DO 05/27/248 Signed By: <Electronically signed by Dread Toney DO> 05/27/24 1109 [facility] Work Phone: [phone]) 699-902903-16-2025 [place] [id number] Hospitalist Progress Note Signed Patient: Des Jacob MR#: [id number] 406 : 1940 Acct:[id number] Age/Sex: 83 / M Adm Date: 5 Loc: 3T Room: [address] [place] [address] Type: ADM INOo Attending Dr: Dread Toney DO Copies to: ~ Date of Service: 05/27/2024 Subjective Subjective Narrative: Seen and evaluated, he continues to be in the chair like most mornings, he remains in good spirits.He has no complaints at this point in time. Exam Physical Exam Vital Signs: Temp Pulse Resp BP Pulse Ox O2 Del Method 98.2 F 70 18 165/83 H 94 L Room Air 05/27/24 08:00 05/27/24 08:00 05/27/24 08:00 05/27/24 08:00 05/27/24 08:00 05/27/24 08:38 Narrative: General: Awake alert to person and time, he is very pleasant. HEENT: 3cm healing laceration above his right eye, it is scabbed over. No active bleeding or drainage. No surrounding erythema. Neck: supple no masses, no lymphadenopathy CVS: regular rate and rhythm, no murmurs or gallops Respiratory: clear to auscultation bilaterally, no wheezing or crackles, symmetric expansion GI: soft, nondistended, nontender, positive bowel sounds with no organomegaly Extremity: moves all extremities, no restrictions of movements, no calf tenderness, no edema, large6 cm laceration on his left arm which is scabbed over, no bleeding or surrounding erythema. Numerous small hematomas on his upper extremities. Neuro: AOx3 today, CN II-VII intact. Moves all extremities in all planes of motion. Skin: dry, intact no rashes or lesions Objective Lab Results 05/24/24 06:12 05/24/24 06:12 Meds Allergies and Active Meds Allergies No Known Allergies Allergy (Verified 05/18/24 16:47) Active Meds: Active Medications Generic Name Dose Route Start Last Admin Trade Name Freq PRN Reason Stop Dose Admin Acetaminophen 650 mg 05/23/24 13:10 Acetaminophen 325 Mg Tablet PO 05/23/25 13:09 Q6HR PRN Pain Scale 1 - 3 or fever Hydrocodone Bitart/Acetaminophen 1 tab 05/23/24 13:10 Hydrocodone/Acetaminophen 5-325 Mg Tablet PO Q4H PRN Pain Scale 4 - 7 Aspirin 81 mg 05/25/24 09:00 05/27/24 08:40 Aspirin 81 Mg Tablet.Dr GÓMEZ 05/25/25 08:59 81 mg DAILY MG Administration Atorvastatin Calcium 40 mg 05/25/24 09:00 05/27/24 08:40 Atorvastatin 40 Mg Tablet PO 05/25/25 08:59 40 mg DAILY MG Administration Enoxaparin Sodium 40 mg 05/24/24 10:00 05/27/24 10:06 Enoxaparin 40 Mg/0.4 Ml Syringe SUBCUT 05/24/25 09:59 Not Given DAILY@10 MG Ergocalciferol 1,250 mcg 05/24/24 09:00 05/24/24 08:35 Ergocalciferol 1,250 Mcg (50,000 Units) Capsule PO 05/24/25 08:59 1,250 mcg Th@0900 MG Administration Fluoxetine HCl 40 mg 05/25/24 09:00 05/27/24 08:40 Fluoxetine 20 Mg Capsule PO 05/25/25 08:59 40 mg DAILY MG Administration Melatonin 5 mg 05/23/24 13:10 05/26/24 21:10 Melatonin 5 Mg Tablet PO 05/23/25 13:09 5 mg QHS PRN Administration Insomnia Memantine 10 mg 05/24/24 15:15 05/27/24 08:40 Memantine 10 Mg Tablet PO 05/24/25 15:14 10 mg DAILY MG Administration Metformin HCl 500 mg 05/24/24 21:00 05/27/24 08:40 Metformin 500 Mg Tablet PO 05/24/25 20:59 500 mg BID MG Administration Ondansetron HCl 4 mg 05/23/24 13:10 Ondansetron 4 Mg/2 Ml Vial IV-PUSH 05/23/25 13:09 Q8H PRN Nausea And Vomiting Quetiapine Fumarate 25 mg 05/26/24 22:00 05/26/24 21:10 Quetiapine Fumarate 25 Mg Tablet PO 05/26/25 21:59 25 mg QHS MG Administration Sodium Chloride 0 ml 05/23/24 07:20 05/24/24 08:36 Sodium Chloride 0.9 % 10 Ml Syringe IV-PUSH 05/23/25 07:19 10 ml PRN PRN Administration Flush A&P - Hospitalist Assessment/Plan (1) Tremor: Plan: ? Patient has had numerous falls lately with increased tremors ? PT OT consulted ? His BMP was within normal limits, hemoglobin is stable. ? TSH normal ? Continue vitamin D therapy ? Neurology on consult for continuation of workup - MRi completed read as no acute intracranial process ? Pending SNF for discharge (2) Weakness: Plan: See above (3) Hypertension: Plan: He is on no antihypertensive medications (4) Orthostatic hypotension: Plan: ? He does have a positive orthostatic blood pressure however he does not really seem symptomatic with this, due to this I will not treat his hypertensive blood pressure numbers. (5) Dementia: Plan: Stable and is baseline (6) Recurrent falls: Plan ? DVT prophylaxis addressed ? Regular diet ? Full code Documented By: Dread Toney DO 05/27/241107 Signed By: 05/27/24 1109 [facility]03-15-2025 Progress note Author Marlo Conner [facility] Note Date/Time May 26, 2024 11: 14am [facility] EN[facility] [address] [place] [address] Neurology Progress Note Signed with Addenda Patient: Des Jacob MR#: [id number] 406 : 1940 Acct:[id number] Age/Sex: 83 / M Adm Date: 5 Loc: Room: [address] [place] [address] Type: ADM INOo Attending Dr: Dread Toney DO Copies to: ~ ADDENDUM1 MRI of the brain has been completed and did not identify any acute intracranial process. I have read through the primary team's notation and I am okay with low- dose Seroquel in the evening to try to regulate sleep-wake cycle I also agree with the plan for rehab. Patient can follow with neurology in the outpatient setting. Neurology will sign off. Please call with questions or concerns. Addendum Documented By: Marlo Conner DO 05/26/24 111 Addendum Signed By: <Electronically signed by Marlo Conner DO> 05/26/241113 Date of Service: 05/26/2024 Subjective Subjective Narrative: To me. No acute distress. MRI is pending for this morning. Review of Systems Review of Systems All other systems reviewed & are negative unless noted below or in HPI Exam Physical Exam Vital Signs: Temp Pulse Resp BP Pulse Ox O2 Del Method 97.5 F L 57 L 18 168/79 H 95 Room Air 05/26/24 07:39 05/26/24 07:39 05/26/24 07:39 05/26/24 07:39 05/26/24 07:39 05/26/24 07:39 Narrative: EXAMINATION: Intermittent bradycardia in the 50s. In no distress. Healing scrapes/lacerations to right side of head, right forehead, right arm, right knee. Scattered bruises on other limbs and portion of body. Bruise on back on the left [facility] down. No significant edema. Normalwork of breathing. As of skin age associated findings. Scattered skin lesions in a right C5 and C6 distribution that he says are resolving shingles hoang. Affect normal. Patient is alert. Attention mildly impaired. Speech is fluent and nondysarthric. Pupils are equal and reactive. Ocular motility is full but he has a mild disconjugate gaze, seems like left exotropia but he switches [id number] with dominant eye, unclear chronicity. A subtle amount of pendular nystagmus with primary gaze. Loss of smooth pursuits. Facial sensation is normal. Hearing is significantly impaired. Facial strength is normal. Tongue is midline. Muscle bulk mildly reduced in limbs. Muscle tone feels mostly normal. Some gegenhalten. Some ratcheting movements when checkingfor cogwheel rigidity in arms. No resting tremors. Mild postural tremors. No bradykinesia, he moves quite rapidly and fluidly and seems sort of jumpy. Reflexes normal throughout. Light touch is normal. Vibratory sensation is diminished in feet. Limbs do not seem ataxic. Objective Vital Signs Vital Signs: Vital Signs - 24 hr 05/25/24 12:00 05/25/24 16:48 05/25/24 20:00 Temperature 98.2 F 98.0 F 98.7 F Pulse Rate 72 67 68 Pulse Rate [Left Sitting] Pulse Rate [Left Standing] Pulse Rate [Supine] Respiratory Rate 20 16 18 Blood Pressure 144/75 H 158/75 H 190/95 H Blood Pressure [Right Arm Sitting] Blood Pressure [Right Arm Standing] Blood Pressure [Right Arm Supine] 02 Sat by Pulse Oximetry 97 97 95 Oxygen Delivery Method Room Air Room Air Room Air 05/25/24 20:00 05/25/24 23:40 05/26/24 03:36 Temperature Pulse Rate 65 Pulse Rate [Left Sitting] 66 Pulse Rate [Left Standing] 63 Pulse Rate [Supine] 62 Respiratory Rate 18 Blood Pressure 188/86 H Blood Pressure [Right Arm Sitting] 153/79 H Blood Pressure [Right Arm Standing] 141/85 H Blood Pressure [Right Arm Supine] 179/73 H 02 Sat by Pulse Oximetry 94 L Oxygen Delivery Method Room Air Room Air 05/26/24 04:00 05/26/24 07:39 Temperature 97.5 F L Pulse Rate 57 L Pulse Rate [Left Sitting] Pulse Rate [Left Standing] Pulse Rate [Supine] Respiratory Rate 18 Blood Pressure 168/79 H Blood Pressure [Right Arm Sitting] Blood Pressure [Right Arm Standing] Blood Pressure [Right Arm Supine] 02 Sat by Pulse Oximetry 95 Oxygen Delivery Method Room Air Room Air Labs 05/24/24 06:12 05/24/24 06:12 Therapy Recommendations Therapy Recommendations: OT Recommendations OT Recommended Discharge Prison Facility,Inpatient Rehab Unit Location PT Recommendations PT Recommended Discharge Prison Facility,Inpatient Rehab Unit Location PT Recommended Services at Physical Therapy,Occupational Therapy,04/10 Discharge Supervision Assessment/Plan (1) Recurrent falls: (2) Declining functional status: (3) Tremor: Plan DATA REVIEW: -CT head nonacute, lots of atrophy but not concerning for NPH -A1c 6.4% -B12 298, folate 11, TSH 2.3, RPR - negative -Orthostatic vital signs supine 176/65 and standing 119/67 -MRI brain: pending ASSESSMENT: Frequent falls due to imbalance. Disconjugate gaze and some nystagmus and loss of smooth pursuits could suggest brainstem/cerebellar process, though I think his ocular findings are probably chronic/remote. Some minor sensory loss in hisfeet that could be partially contributory. Orthostatic vital signs markedly abnormal. I suspect orthostatic hypotension could be contributing to his falls. He mentions getting tremulous and feeling weak when he is upright and I suspect he has orthostatic tremors. He has a homealpha-brittany listed which is exacerbating this condition. He intermittently isfound to have mild bradycardia, and his listed home medication of donepezil could be worsening that. Family members reportedly concerned about progressive cognitive decline with concern for dementia. CT imaging does not look consistent with NPH. Overall presentation not very concerning for a parkinsonian disorder. He seemedto have some cogwheeling in bilateral upper extremities. More like gegenhalten than increased tone though. And no resting tremor and no bradykinesia. PLAN: 1. STOP ARICEPT 2. PATIENT WILL NEED OUTPATIENT HEMATOLGOY EVALUATION FOR ASYMETRICAL GAMMA IDENTIFIED ON SPEP/IMMUNOFIXATION 3. Terazosin listed as a home medication. It is not ordered here. I would avoid alpha blockers in the setting of his significant orthostatic hypotension. 4. MRI brain pending. If the MRI is without acute findings, no other recommendations at this time. 5. He will need outpatient neurology and neuropsych Documented By: Marlo Conner DO 5 0947 Signed By: <Electronically signed by Marlo Conner, > 05/26/24 0951 [facility] Work Phone: 1(224) 130-955303-15-2025 Progress note Author Dread Toney [facility] Note Date/Time May 26, 2024 10: 25am [facility] ENTER [address] [place] [address] Hospitalist Progress Note Signed Patient: Des Jacob MR#: [id number] 406 : 1940 Acct:[id number] Age/Sex: 83 / M Adm Date: 5 Loc: Room: [address] [place] [address] Type: ADM INOo Attending Dr: Dread Toney DO Copies to: ~ Date of Service: 05/26/2024 Subjective Subjective Narrative: Seen and evaluated this morning, he is sitting up in chair. He is very pleasantthis morning as he has been. Per the overnight nurses he did not sleep very well. Will plan to add Seroquel tonight to help keep his sleep-wake cycle on track. Exam Physical Exam Vital Signs: Temp Pulse Resp BP Pulse Ox O2 Del Method 97.5 F L 57 L 18 168/79 H 95 Room Air 05/26/24 07:39 05/26/24 07:39 05/26/24 07:39 05/26/24 07:39 05/26/24 07:39 05/26/24 07:39 Narrative: General: Awake alert to person and time, he is very pleasant. HEENT: 3cm healing laceration above his right eye, it is scabbed over. No active bleeding or drainage. No surrounding erythema. Neck: supple no masses, no lymphadenopathy CVS: regular rate and rhythm, no murmurs or gallops Respiratory: clear to auscultation bilaterally, no wheezing or crackles, symmetric expansion GI: soft, nondistended, nontender, positive bowel sounds with no organomegaly Extremity: moves all extremities, no restrictions of movements, no calf tenderness, no edema, large 6 cm laceration on his left arm which is scabbed over, no bleeding or surrounding erythema. Numerous small hematomas on his upper extremities. Neuro: AOx3 today, CN II-VII intact. Moves all extremities in all planes of motion. Skin: dry, intact no rashes or lesions Objective Lab Results 05/24/24 06:12 05/24/24 06:12 Meds Allergies and Active Meds Allergies No Known Allergies Allergy (Verified 05/18/24 16:47) Active Meds: Active Medications Generic Name Dose Route Start Last Admin Trade Name Freq PRN Reason Stop Dose Admin Acetaminophen 650 mg 05/23/24 13:10 Acetaminophen 325 Mg Tablet PO 05/23/25 13:09 Q6HR PRN Pain Scale 1 - 3 or fever Hydrocodone Bitart/Acetaminophen 1 tab 05/23/24 13:10 Hydrocodone/Acetaminophen 5-325 Mg Tablet PO Q4H PRN Pain Scale 4 - 7 Aspirin 81 mg 05/25/24 09:00 05/26/24 08:13 Aspirin 81 Mg Tablet.Dr PO 05/25/25 08:59 81 mg DAILY MG Administration Atorvastatin Calcium 40 mg 05/25/24 09:00 05/26/24 08:13 Atorvastatin 40 Mg Tablet PO 05/25/25 08:59 40 mg DAILY MG Administration Enoxaparin Sodium 40 mg 05/24/24 10:00 05/25/24 09:20 Enoxaparin 40 Mg/0.4 Ml Syringe SUBCUT 05/24/25 09:59 40 mg DAILY@10 MG Administration Ergocalciferol 1,250 mcg 05/24/24 09:00 05/24/24 08:35 Ergocalciferol 1,250 Mcg (50,000 Units) Capsule PO 05/24/25 08:59 1,250 mcg Th@0900 MG Administration Fluoxetine HCl 40 mg 05/25/24 09:00 05/26/24 08:14 Fluoxetine 20 Mg Capsule PO 05/25/25 08:59 40 mg DAILY MG Administration Melatonin 5 mg 05/23/24 13:10 05/24/24 21:43 Melatonin 5 Mg Tablet PO 05/23/25 13:09 5 mg QHS PRN Administration Insomnia Memantine 10 mg 05/24/24 15:15 05/26/24 08:14 Memantine 10 Mg Tablet PO 05/24/25 15:14 10 mg DAILY MG Administration Metformin HCl 500 mg 05/24/24 21:00 05/26/24 08:15 Metformin 500 Mg Tablet PO 05/24/25 20:59 500 mg BID MG Administration Ondansetron HCl 4 mg 05/23/24 13:10 Ondansetron 4 Mg/2 Ml Vial IV-PUSH 05/23/25 13:09 Q8H PRN Nausea And Vomiting Sodium Chloride 0 ml 05/23/24 07:20 05/24/24 08:36 Sodium Chloride 0.9 % 10 Ml Syringe IV-PUSH 05/23/25 07:19 10 ml PRN PRN Administration Flush A&P - Hospitalist Assessment/Plan (1) Tremor: Plan: ? Patient has had numerous falls lately with increased tremors ? PT OT consulted ? His BMP was within normal limits, hemoglobin is stable. ? TSH normal ? Continue vitamin D therapy ? Neurology on consult for continuation of workup - MRi completed, official read is pending ? Physical medicine rehabilitation consulted for consideration for inpatient rehab (2) Weakness: Plan: See above (3) Hypertension: Plan: He is on no antihypertensive medications (4) Orthostatic hypotension: Plan: ? He does have a positive orthostatic blood pressure however he does not really seem symptomatic with this, due to this I will not treat his hypertensive blood pressure numbers. (5) Dementia: Plan: Stable and is baseline (6) Recurrent falls: Plan ? DVT prophylaxis addressed ? Regular diet ? Full code Documented By: Dread Toney DO 05/26/24 1022 Signed By: <Electronically signed by Dread Toney DO> 05/26/24 1025 [facility] Work Phone: [phone] 599-552703-15-[address] [address] Neurology Progress Note Signed with Giulia Patient: Des Jacob MR#: [id number] 406 : 1940 Acct:[id number] Age/Sex: 83 / M Adm Date: 5 Loc: 3T Room: 2H3151-2 Type: ADM INOo Attending Dr: Dread Toney DO Copies to: ~ ADDENDUM1 MRI of the brain has been completed and did not identify any acute intracranial process. I have read through the primary team's notation and I am okay with low- dose Seroquel in the evening to try to regulate sleep-wake cycle I also agree with the plan for rehab. Patient can follow with neurology inthe outpatient setting. Neurology will sign off. Please call with questions or concerns. Addendum Documented By: Marlo Conner DO 05/26/241113 Addendum Signed By: 05/26/241113 Date of Service: 05/26/2024 Subjective Subjective Narrative: To me. No acute distress. MRI is pending for this morning. Review of Systems Review of Systems All other systems reviewed & are negative unless noted below or in HPI Exam Physical Exam Vital Signs: Temp Pulse Resp BP Pulse Ox O2 Del Method 97.5 F L 57 L 18 168/79 H 95 Room Air 05/26/24 07:39 05/26/24 07:39 05/26/24 07:39 05/26/24 07:39 05/26/24 07:39 05/26/24 07:39 Narrative: EXAMINATION: Intermittent bradycardia in the 50s. In no distress. Healing scrapes/lacerations to right side of head, right forehead, right arm, rightknee. Scattered bruises on other limbs and portion of body. Bruise on back on the left [facility] down. No significant edema. Normalwork of breathing. As of skin age associated findings. Scattered skin lesions in a right C5 and C6 distribution that he says are resolving shingles hoang. Affect normal. Patient is alert. Attention mildly impaired. Speech is fluent and nondysarthric. Pupils are equal and reactive. Ocular motility is full but he has a mild disconjugate gaze, seems like left exotropia but he switches [id number] with dominant eye, unclear chronicity. A subtle amount of pendular nystagmus with primary gaze. Loss of smooth pursuits. Facial sensation is normal. Hearing is significantly impaired. Facial strength is normal. Tongue is midline. Muscle bulk mildly reduced in limbs. Muscle tone feels mostly normal. Some gegenhalten. Some ratcheting movements when checkingfor cogwheel r igidity in arms. No resting tremors. Mild postural tremors. No bradykinesia, he moves quite rapidlyand fluidly and seems sort of jumpy. Reflexes normal throughout. Light touch is normal. Vibratory sensation is diminished in feet. Limbs do not seem ataxic. Objective Vital Signs Vital Signs: Vital Signs - 24 hr 05/25/24 12:00 05/25/24 16:48 05/25/24 20:00 Temperature 98.2 F 98.0 F 98.7 F Pulse Rate 72 67 68 Pulse Rate [Left Sitting] Pulse Rate [Left Standing] Pulse Rate [Supine] Respiratory Rate 20 16 18 Blood Pressure 144/75 H 158/75 H 190/95 H Blood Pressure [Right Arm Sitting] Blood Pressure [Right Arm Standing] Blood Pressure [Right Arm Supine] 02 Sat by Pulse Oximetry 97 97 95 Oxygen Delivery Method Room Air Room Air Room Air 05/25/24 20:00 05/25/24 23:40 05/26/24 03:36 Temperature Pulse Rate 65 Pulse Rate [Left Sitting] 66 Pulse Rate [Left Standing] 63 Pulse Rate [Supine] 62 Respiratory Rate 18 Blood Pressure 188/86 H Blood Pressure [Right Arm Sitting] 153/79 H Blood Pressure [Right Arm Standing] 141/85 H Blood Pressure [Right Arm Supine] 179/73 H 02 Sat by Pulse Oximetry 94 L Oxygen Delivery Method Room Air Room Air 05/26/24 04:00 05/26/24 07:39 Temperature 97.5 F L Pulse Rate 57 L Pulse Rate [Left Sitting] Pulse Rate [Left Standing] Pulse Rate [Supine] Respiratory Rate 18 Blood Pressure 168/79 H Blood Pressure [Right Arm Sitting] Blood Pressure [Right Arm Standing] Blood Pressure [Right Arm Supine] 02 Sat by Pulse Oximetry 95 Oxygen Delivery Method Room Air Room Air Labs 05/24/24 06:12 05/24/24 06:12 Therapy Recommendations Therapy Recommendations: OT Recommendations OT Recommended Discharge Prison Facility,Inpatient Rehab Unit Location PT Recommendations PT Recommended Discharge Prison Facility,Inpatient Rehab Unit Location PT Recommended Services at Physical Therapy,Occupational Therapy,04/10 Discharge Supervision Assessment/Plan (1) Recurrent falls: (2) Declining functional status: (3) Tremor: Plan DATA REVIEW: -CT head nonacute, lots of atrophy but not concerning for NPH -A1c 6.4% -B12 298, folate 11, TSH 2.3, RPR - negative -Orthostatic vital signs supine 176/65 and standing 119/67 -MRI brain: pending ASSESSMENT: Frequent falls due to imbalance. Disconjugate gaze and some nystagmus and loss of smooth pursuits could suggest brainstem/cerebellar process, though I think his ocular findings are probably chronic/remote. Some minor sensory loss in hisfeet that could be partially contributory. Orthostatic vital signs markedly abnormal. I suspect orthostatic hypotension could be contributing to his falls. He mentions getting tremulous and feeling weak when he is upright and I suspect he hasorthostatic tremors. He has a homealpha-brittany listed which is exacerbating this condition. He intermittently isfound to have mild bradycardia, and his listed home medication of donepezil could be worsening that. Family members reportedly concerned about progressive cognitive decline with concern for dementia. CT imaging does not look consistent with NPH. Overall presentation not very concerning for a parkinsonian disorder. He seemedto have some cogwheeling in bilateral upper extremities. More like gegenhalten than increased tone though. And no resting tremor and no bradykinesia. PLAN: 1. STOP ARICEPT 2. PATIENT WILL NEED OUTPATIENT HEMATOLGOY EVALUATION FOR ASYMETRICAL GAMMA IDENTIFIED ON SPEP/IMMUNOFIXATION 3. Terazosin listed as a home medication. It is not ordered here. I would avoid alpha blockers in the setting of his significant orthostatic hypotension. 4. MRI brain pending. If the MRI is without acute findings, no other recommendations at this time. 5. He will need outpatient neurology and neuropsych Documented By: Marlo Conner DO 5 0947 Signed By: 05/26/24 0951 [facility]03-15-2025 [place] [address] Hospitalist Progress Note Signed Patient: Des Jacob MR#: [id number] 406 : 1940 Acct:[id number] Age/Sex: 83 / M Adm Date: 5 Loc: Room: [address] [place] [address] Type: ADM INOo Attending Dr: Dread Toney DO Copies to: ~ Date of Service: 05/26/2024 Subjective Subjective Narrative: Seen and evaluated this morning, he is sitting up in chair. He is very pleasantthis morning as he has been. Per the overnight nurses he did not sleep very well. Will plan to add Seroquel tonight to help keep his sleep-wake cycle on track. Exam Physical Exam Vital Signs: Temp Pulse Resp BP Pulse Ox O2 Del Method 97.5 F L 57 L 18 168/79 H 95 Room Air 05/26/24 07:39 05/26/24 07:39 05/26/24 07:39 05/26/24 07:39 05/26/24 07:39 05/26/24 07:39 Narrative: General: Awake alert to person and time, he is very pleasant. HEENT: 3cm healing laceration above his right eye, it is scabbed over. No active bleeding or drainage. No surrounding erythema. Neck: supple no masses, no lymphadenopathy CVS: regular rate and rhythm, no murmurs or gallops Respiratory: clear to auscultation bilaterally, no wheezing or crackles, symmetric expansion GI: soft, nondistended, nontender, positive bowel sounds with no organomegaly Extremity: moves all extremities, no restrictions of movements, no calf tenderness, no edema, large6 cm laceration on his left arm which is scabbed over, no bleeding or surrounding erythema. Numerous small hematomas on his upper extremities. Neuro: AOx3 today, CN II-VII intact. Moves all extremities in all planes of motion. Skin: dry, intact no rashes or lesions Objective Lab Results 05/24/24 06:12 05/24/24 06:12 Meds Allergies and Active Meds Allergies No Known Allergies Allergy (Verified 05/18/24 16:47) Active Meds: Active Medications Generic Name Dose Route Start Last Admin Trade Name Freq PRN Reason Stop Dose Admin Acetaminophen 650 mg 05/23/24 13:10 Acetaminophen 325 Mg Tablet PO 05/23/25 13:09 Q6HR PRN Pain Scale 1 - 3 or fever Hydrocodone Bitart/Acetaminophen 1 tab 05/23/24 13:10 Hydrocodone/Acetaminophen 5-325 Mg Tablet PO Q4H PRN Pain Scale 4 - 7 Aspirin 81 mg 05/25/24 09:00 05/26/24 08:13 Aspirin 81 Mg Tablet. PO 05/25/25 08:59 81 mg DAILY MG Administration Atorvastatin Calcium 40 mg 05/25/24 09:00 05/26/24 08:13 Atorvastatin 40 Mg Tablet PO 05/25/25 08:59 40 mg DAILY MG Administration Enoxaparin Sodium 40 mg 05/24/24 10:00 05/25/24 09:20 Enoxaparin 40 Mg/0.4 Ml Syringe SUBCUT 05/24/25 09:59 40 mg DAILY@10 MG Administration Ergocalciferol 1,250 mcg 05/24/24 09:00 05/24/24 08:35 Ergocalciferol 1,250 Mcg (50,000 Units) Capsule PO 05/24/25 08:59 1,250 mcg Th@0900 MG Administration Fluoxetine HCl 40 mg 05/25/24 09:00 05/26/24 08:14 Fluoxetine 20 Mg Capsule PO 05/25/25 08:59 40 mg DAILY MG Administration Melatonin 5 mg 05/23/24 13:10 05/24/24 21:43 Melatonin 5 Mg Tablet PO 05/23/25 13:09 5 mg QHS PRN Administration Insomnia Memantine 10 mg 05/24/24 15:15 05/26/24 08:14 Memantine 10 Mg Tablet PO 05/24/25 15:14 10 mg DAILY MG Administration Metformin HCl 500 mg 05/24/24 21:00 05/26/24 08:15 Metformin 500 Mg Tablet PO 05/24/25 20:59 500 mg BID MG Administration Ondansetron HCl 4 mg 05/23/24 13:10 Ondansetron 4 Mg/2 Ml Vial IV-PUSH 05/23/25 13:09 Q8H PRN Nausea And Vomiting Sodium Chloride 0 ml 05/23/24 07:20 05/24/24 08:36 Sodium Chloride 0.9 % 10 Ml Syringe IV-PUSH 05/23/25 07:19 10 ml PRN PRN Administration Flush A&P - Hospitalist Assessment/Plan (1) Tremor: Plan: ? Patient has had numerous falls lately with increased tremors ? PT OT consulted ? His BMP was within normal limits, hemoglobin is stable. ? TSH normal ? Continue vitamin D therapy ? Neurology on consult for continuation of workup - MRi completed, official read is pending ? Physical medicine rehabilitation consulted for consideration for inpatient rehab (2) Weakness: Plan: See above (3) Hypertension: Plan: He is on no antihypertensive medications (4) Orthostatic hypotension: Plan: ? He does have a positive orthostatic blood pressure however he does not really seem symptomatic with this, due to this I will not treat his hypertensive blood pressure numbers. (5) Dementia: Plan: Stable and is baseline (6) Recurrent falls: Plan ? DVT prophylaxis addressed ? Regular diet ? Full code Documented By: Dread Toney DO 05/26/24 102 Signed By: 05/26/24 1025 [facility]03-14-2025 Progress note Author Dread Toney [facility] Note Date/Time May 25, 2024 12: 37pm [facility] [address] [place] [address] Hospitalist Progress Note Signed Patient: Des Jacob MR#: [id number] 406 : 1940 Acct:[id number] Age/Sex: 83 / M Adm Date: 5 Loc: Room: [address] [place] [address] Type: ADM INOo Attending Dr: Dread Toney DO Copies to: ~ Date of Service: 05/25/2024 Subjective Subjective Narrative: Seen and evaluated, currently sitting up in chair and very pleasant. No family present at bedside. Patient endorses getting a good nights rest last night, he is more alert this AM and consistent with his fluctuations in mental status. Exam Physical Exam Vital Signs: Temp Pulse Resp BP Pulse Ox O2 Del Method 98.4 F 62 20 129/67 95 Room Air 05/25/24 09:03 05/25/24 09:03 05/25/24 09:03 05/25/24 09:16 05/25/24 09:03 05/25/24 09:03 Narrative: General: Awake alert to person and time, he is very pleasant. HEENT: 3cm healing laceration above his right eye, it is scabbed over. No active bleeding or drainage. No surrounding erythema. Neck: supple no masses, no lymphadenopathy CVS: regular rate and rhythm, no murmurs or gallops Respiratory: clear to auscultation bilaterally, no wheezing or crackles, symmetric expansion GI: soft, nondistended, nontender, positive bowel sounds with no organomegaly Extremity: moves all extremities, no restrictions of movements, no calf tenderness, no edema, large 6 cm laceration on his left arm which is scabbed over, no bleeding or surrounding erythema. Numerous small hematomas on his upper extremities. Neuro: AOx3 today, CN II-VII intact. Moves all extremities in all planes of motion. Skin: dry, intact no rashes or lesions Objective Lab Results 05/24/24 06:12 05/24/24 06:12 Meds Allergies and Active Meds Allergies No Known Allergies Allergy (Verified 05/18/24 16:47) Active Meds: Active Medications Generic Name Dose Route Start Last Admin Trade Name Freq PRN Reason Stop Dose Admin Acetaminophen 650 mg 05/23/24 13:10 Acetaminophen 325 Mg Tablet PO 05/23/25 13:09 Q6HR PRN Pain Scale 1 - 3 or fever Hydrocodone Bitart/Acetaminophen 1 tab 05/23/24 13:10 Hydrocodone/Acetaminophen 5-325 Mg Tablet PO Q4H PRN Pain Scale 4 - 7 Aspirin 81 mg 05/25/24 09:00 05/25/24 09:19 Aspirin 81 Mg Tablet. PO 05/25/25 08:59 81 mg DAILY MG Administration Atorvastatin Calcium 40 mg 05/25/24 09:00 05/25/24 09:19 Atorvastatin 40 Mg Tablet PO 05/25/25 08:59 40 mg DAILY MG Administration Enoxaparin Sodium 40 mg 05/24/24 10:00 05/25/24 09:20 Enoxaparin 40 Mg/0.4 Ml Syringe SUBCUT 05/24/25 09:59 40 mg DAILY@10 MG Administration Ergocalciferol 1,250 mcg 05/24/24 09:00 05/24/24 08:35 Ergocalciferol 1,250 Mcg (50,000 Units) Capsule PO 05/24/25 08:59 1,250 mcg Th@0900 MG Administration Fluoxetine HCl 40 mg 05/25/24 09:00 05/25/24 09:23 Fluoxetine 20 Mg Capsule PO 05/25/25 08:59 40 mg DAILY MG Administration Melatonin 5 mg 05/23/24 13:10 05/24/24 21:43 Melatonin 5 Mg Tablet PO 05/23/25 13:09 5 mg QHS PRN Administration Insomnia Memantine 10 mg 05/24/24 15:15 05/25/24 09:20 Memantine 10 Mg Tablet PO 05/24/25 15:14 10 mg DAILY MG Administration Metformin HCl 500 mg 05/24/24 21:00 05/25/24 09:20 Metformin 500 Mg Tablet PO 05/24/25 20:59 500 mg BID MG Administration Ondansetron HCl 4 mg 05/23/24 13:10 Ondansetron 4 Mg/2 Ml Vial IV-PUSH 05/23/25 13:09 Q8H PRN Nausea And Vomiting Sodium Chloride 0 ml 05/23/24 07:20 05/24/24 08:36 Sodium Chloride 0.9 % 10 Ml Syringe IV-PUSH 05/23/25 07:19 10 ml PRN PRN Administration Flush A&P - Hospitalist Assessment/Plan (1) Tremor: Plan: ? Patient has had numerous falls lately with increased tremors ? PT OT consulted ? His BMP was within normal limits, hemoglobin is stable. ? TSH normal ? Continue vitamin D therapy ? Neurology on consult for continuation of workup - MRi pending ? Physical medicine rehabilitation consulted for consideration for inpatient rehab (2) Weakness: Plan: See above (3) Hypertension: Plan: He is on no antihypertensive medications (4) Orthostatic hypotension: Plan: ? He does have a positive orthostatic blood pressure however he does not really seem symptomatic with this, due to this I will not treat his hypertensive blood pressure numbers. (5) Dementia: Plan: Stable and is baseline (6) Recurrent falls: Plan ? DVT prophylaxis addressed ? Regular diet ? Full code Documented By: Dread Toney DO 05/25/24 1234 Signed By: <Electronically signed by Dread Toney DO> 05/25/24 1237 [facility] Work Phone: [phone]) 372-303203-14-2025 Consult note Author Shamar Mcclain [facility] Note Date/Time May 25, 2024 11: 32am [facility] [address] [place] [address] Physiatry (Rehab) Consult Note Signed Patient: Des Jacob MR#: [id number] 406 : 1940 Acct:[id number] Age/Sex: 83 / M Adm Date: 5 Loc: Room: [address] [place] [address] Type: ADM INOo Attending Dr: Dread Toney DO Copies to: DO Shamar Roblero MD Shawn J Warner, DO~ Etiologic Dx/Impairment Group Narrative Narrative: Failure to thrive HPI Consult Date: 05/25/24 Requesting Physician: Dread Toney DO Primary Care Provider: Phani Ambrocio DO Consult Narrative Reason for consult: debility, falls HPI: Mr. Jacob is a 83 year old male with past medical history as below including dementia who presented to the hospital with multifactorial functional decline and falling at home. Emergency room he was a little confused. Tremors were noted. He was evaluated in the emergency room 1 week prior also for falling. CT head was negative. Neurology was consulted. MRI is pending. Neurology doesnot feel presentation is parkinsonian or similar in nature. Therapy notes reviewed. Review of Systems Review of Systems All other systems reviewed & are negative unless noted below or in HPI [facility] Medical History Sleep apnea Uses C-pap Whooping cough as a child Hyperlipemia Insomnia BPH (benign prostatic hyperplasia) Erectile dysfunction Hearing loss Hypertension Coronary artery disease Diabetes Family History Father Heart disease Mother Multiple sclerosis Father Myocardial infarction Heart disease 47 yrs Mother 38 yrs Multiple sclerosis Social History Smoking Status: Former smoker Substance Use Type: None Meds Medications and Allergies Allergies No Known Allergies Allergy (Verified 05/18/24 16:47) Home Medications aspirin 81 mg tablet,delayed release 81 mg PO DAILY 07/10/18 [History Confirmed 05/24/24] atorvastatin 40 mg tablet 1 tab PO DAILY 07/10/18 [History Confirmed 05/24/24] finasteride 5 mg tablet 1 tab PO DAILY 07/10/18 [History Confirmed 05/24/24] fluoxetine 20 mg capsule 40 mg PO DAILY 07/10/18 [History Confirmed 05/24/24] metformin 500 mg tablet 1 tab PO BID 07/10/18 [History Confirmed 05/24/24] terazosin 1 mg capsule 1 tab PO DAILY 07/10/18 [History Confirmed 05/24/24] donepezil 10 mg tablet 10 mg PO HS 05/18/24 [History Confirmed 05/24/24] tadalafil 20 mg tablet (Cialis) 20 mg PO DAILY PRN ED 05/18/24 [History Confirmed 05/18/24] valacyclovir 1 gram tablet 1,000 mg PO TID 05/24/24 [History Confirmed 05/24/24] Exam Physical Exam Vital Signs: Temp Pulse Resp BP Pulse Ox O2 Del Method 98.4 F 62 20 129/67 95 Room Air 05/25/24 09:03 05/25/24 09:03 05/25/24 09:03 05/25/24 09:16 05/25/24 09:03 05/25/24 09:03 Narrative: Pleasant NAD AO x 2 No tremor noted Moves extremities against gravity Multiple bruises/abrasions, scattered, he relates to falls. Results - Phys. Rehab Labs Labs: Laboratory Results - last 24 hr 05/24/24 05/24/24 05/25/24 06:12 21:25 06:24 POC Glucose 184 126 POC Glucose Comment Glu2: cleaned meter Glu2: cleaned meter RPR w/Rflx to Titer Non reactive 05/25/24 11:18 POC Glucose 98 POC Glucose Comment RPR w/Rflx to Titer Additional Results Results Comment: I reviewed clinical lab tests, radiology reports and obtained and summated medical records and have ordered follow up lab tests and imaging studies as needed for rehabilitation care. Assessment/Plan (1) Recurrent falls: (2) Declining functional status: (3) Obstructive sleep apnea: (4) Weakness: (5) Dementia: (6) Orthostatic hypotension: Plan Mr. Jacob is a 83 year old male with past medical history as below including dementia who presented to the hospital with multifactorial functional decline and falling at home. -This point patient is observation status and lacks acute complex rehab diagnosis. His head CT is nonacute and he is not being managed as Parkinsons patient. If MRI is also negative he can be managed at lower level of care. Medication adjustments per Neurology should help prevent falls and he would alsobenefit from outpatient f/u with Neurology. Patient was personally seen by me, Dr. Mcclain, on the day of encounter, reviewed the history and the relevant portions of the chart, including current orders, allied health and document management consultant notes, labs/imaging and performed wall elements of exam and I formulated the plan of care and facilitated the medical decision making. I completed a substantive portion of this encounter, the medical decision makingportion of this note in its entirety, including Allied health note review, nursing note review, document management consultant note review, discussion with nursing and case management, and more than 50% of my time was spent on counseling and coordination of care, time spent 35 minutes Documented By: Shamar Mcclain MD 05/25/24 1125 Signed By: <Electronically signed by Shamar Mcclain MD> 05/25/24 1132 [facility] Work Phone: 1([phone]) 221-109903-14-[address] [address] Hospitalist Progress Note Signed Patient: Des Jacob MR#: [id number] 406 : 1940 Acct:[id number] Age/Sex: 83 / M Adm Date: 5 Loc: 3T Room: [address] [place] [address] Type: ADM INOo Attending Dr: Dread Toney DO Copies to: ~ Date of Service: 05/25/2024 Subjective Subjective Narrative: Seen and evaluated, currently sitting up in chair and very pleasant. No family present at bedside. Patient endorses getting a good nights rest last night, he is more alert this AM and consistent withhis fluctuations in mental status. Exam Physical Exam Vital Signs: Temp Pulse Resp BP Pulse Ox O2 Del Method 98.4 F 62 20 129/67 95 Room Air 05/25/24 09:03 05/25/24 09:03 05/25/24 09:03 05/25/24 09:16 05/25/24 09:03 05/25/24 09:03 Narrative: General: Awake alert to person and time, he is very pleasant. HEENT: 3cm healing laceration above his right eye, it is scabbed over. No active bleeding or drainage. No surrounding erythema. Neck: supple no masses, no lymphadenopathy CVS: regular rate and rhythm, no murmurs or gallops Respiratory: clear to auscultation bilaterally, no wheezing or crackles, symmetric expansion GI: soft, nondistended, nontender, positive bowel sounds with no organomegaly Extremity: moves all extremities, no restrictions of movements, no calf tenderness, no edema, large6 cm laceration on his left arm which is scabbed over, no bleeding or surrounding erythema. Numerous small hematomas on his upper extremities. Neuro: AOx3 today, CN II-VII intact. Moves all extremities in all planes of motion. Skin: dry, intact no rashes or lesions Objective Lab Results 05/24/24 06:12 05/24/24 06:12 Meds Allergies and Active Meds Allergies No Known Allergies Allergy (Verified 05/18/24 16:47) Active Meds: Active Medications Generic Name Dose Route Start Last Admin Trade Name Josh PRN Reason Stop Dose Admin Acetaminophen 650 mg 05/23/24 13:10 Acetaminophen 325 Mg Tablet PO 05/23/25 13:09 Q6HR PRN Pain Scale 1 - 3 or fever Hydrocodone Bitart/Acetaminophen 1 tab 05/23/24 13:10 Hydrocodone/Acetaminophen 5-325 Mg Tablet PO Q4H PRN Pain Scale 4 - 7 Aspirin 81 mg 05/25/24 09:00 05/25/24 09:19 Aspirin 81 Mg Tablet.Dr PO 05/25/25 08:59 81 mg DAILY MG Administration Atorvastatin Calcium 40 mg 05/25/24 09:00 05/25/24 09:19 Atorvastatin 40 Mg Tablet PO 05/25/25 08:59 40 mg DAILY MG Administration Enoxaparin Sodium 40 mg 05/24/24 10:00 05/25/24 09:20 Enoxaparin 40 Mg/0.4 Ml Syringe SUBCUT 05/24/25 09:59 40 mg DAILY@10 MG Administration Ergocalciferol 1,250 mcg 05/24/24 09:00 05/24/24 08:35 Ergocalciferol 1,250 Mcg (50,000 Units) Capsule PO 05/24/25 08:59 1,250 mcg Th@0900 MG Administration Fluoxetine HCl 40 mg 05/25/24 09:00 05/25/24 09:23 Fluoxetine 20 Mg Capsule PO 05/25/25 08:59 40 mg DAILY MG Administration Melatonin 5 mg 05/23/24 13:10 05/24/24 21:43 Melatonin 5 Mg Tablet PO 05/23/25 13:09 5 mg QHS PRN Administration Insomnia Memantine 10 mg 05/24/24 15:15 05/25/24 09:20 Memantine 10 Mg Tablet PO 05/24/25 15:14 10 mg DAILY MG Administration Metformin HCl 500 mg 05/24/24 21:00 05/25/24 09:20 Metformin 500 Mg Tablet PO 05/24/25 20:59 500 mg BID MG Administration Ondansetron HCl 4 mg 05/23/24 13:10 Ondansetron 4 Mg/2 Ml Vial IV-PUSH 05/23/25 13:09 Q8H PRN Nausea And Vomiting Sodium Chloride 0 ml 05/23/24 07:20 05/24/24 08:36 Sodium Chloride 0.9 % 10 Ml Syringe IV-PUSH 05/23/25 07:19 10 ml PRN PRN Administration Flush A&P - Hospitalist Assessment/Plan (1) Tremor: Plan: ? Patient has had numerous falls lately with increased tremors ? PT OT consulted ? His BMP was within normal limits, hemoglobin is stable. ? TSH normal ? Continue vitamin D therapy ? Neurology on consult for continuation of workup - MRi pending ? Physical medicine rehabilitation consulted for consideration for inpatient rehab (2) Weakness: Plan: See above (3) Hypertension: Plan: He is on no antihypertensive medications (4) Orthostatic hypotension: Plan: ? He does have a positive orthostatic blood pressure however he does not really seem symptomatic with this, due to this I will not treat his hypertensive blood pressure numbers. (5) Dementia: Plan: Stable and is baseline (6) Recurrent falls: Plan ? DVT prophylaxis addressed ? Regular diet ? Full code Documented By: Dread Toney DO 05/25/24 1234 Signed By: 05/25/24 1237 [facility]03-14-20[address] [place] [address] Physiatry (Rehab) Consult Note Signed Patient: Des Jacob MR#: [id number] 406 : 1940 Acct:[id number] Age/Sex: 83 / M Adm Date: 5 Loc: Room: [address] [place] [address] Type: ADM INOo Attending Dr: Dread Toney DO Copies to: DO Shamar Roblero MD Shawn J Warner, DO~ Etiologic Dx/Impairment Group Narrative Narrative: Failure to thrive HPI Consult Date: 05/25/24 Requesting Physician: Dread Toney DO Primary Care Provider: Phani Ambrocio DO Consult Narrative Reason for consult: debility, falls HPI: Mr. Jacob is a 83 year old male with past medical history as below including dementia who presented to the hospital with multifactorial functional decline and falling at home. Emergency room he was a little confused. Tremors were noted. He was evaluated in the emergency room1 week prior also for falling. CT head was negative. Neurology was consulted. MRI is pending. Neurology doesnot feel presentation is parkinsonian or similar in nature. Therapy notes reviewed. Review of Systems Review of Systems All other systems reviewed & are negative unless noted below or in HPI [facility] Medical History Sleep apnea Uses C-pap Whooping cough as a child Hyperlipemia Insomnia BPH (benign prostatic hyperplasia) Erectile dysfunction Hearing loss Hypertension Coronary artery disease Diabetes Family History Father Heart disease Mother Multiple sclerosis Father Myocardial infarction Heart disease 47 yrs Mother 38 yrs Multiple sclerosis Social History Smoking Status: Former smoker Substance Use Type: None Meds Medications and Allergies Allergies No Known Allergies Allergy (Verified 05/18/24 16:47) Home Medications aspirin 81 mg tablet,delayed release 81 mg PO DAILY 07/10/18 [History Confirmed 05/24/24] atorvastatin 40 mg tablet 1 tab PO DAILY 07/10/18 [History Confirmed 05/24/24] finasteride 5 mg tablet 1 tab PO DAILY 07/10/18 [History Confirmed 05/24/24] fluoxetine 20 mg capsule 40 mg PO DAILY 07/10/18 [History Confirmed 05/24/24] metformin 500 mg tablet 1 tab PO BID 07/10/18 [History Confirmed 05/24/24] terazosin 1 mg capsule 1 tab PO DAILY 07/10/18 [History Confirmed 05/24/24] donepezil 10 mg tablet 10 mg PO HS 05/18/24 [History Confirmed 05/24/24] tadalafil 20 mg tablet (Cialis) 20 mg PO DAILY PRN ED 05/18/24 [History Confirmed 05/18/24] valacyclovir 1 gram tablet 1,000 mg PO TID 05/24/24 [History Confirmed 05/24/24] Exam Physical Exam Vital Signs: Temp Pulse Resp BP Pulse Ox O2 Del Method 98.4 F 62 20 129/67 95 Room Air 05/25/24 09:03 05/25/24 09:03 05/25/24 09:03 05/25/24 09:16 05/25/24 09:03 05/25/24 09:03 Narrative: Pleasant NAD AO x 2 No tremor noted Moves extremities against gravity Multiple bruises/abrasions, scattered, he relates to falls. Results - Phys. Rehab Labs Labs: Laboratory Results - last 24 hr 05/24/24 05/24/24 05/25/24 06:12 21:25 06:24 POC Glucose 184 126 POC Glucose Comment Glu2: cleaned meter Glu2: cleaned meter RPR w/Rflx to Titer Non reactive 05/25/24 11:18 POC Glucose 98 POC Glucose Comment RPR w/Rflx to Titer Additional Results Results Comment: I reviewed clinical lab tests, radiology reports and obtained and summated medical records and haveordered follow up lab tests and imaging studies as needed for rehabilitation care. Assessment/Plan (1) Recurrent falls: (2) Declining functional status: (3) Obstructive sleep apnea: (4) Weakness: (5) Dementia: (6) Orthostatic hypotension: Plan Mr. Jacob is a 83 year old male with past medical history as below including dementia who presented to the hospital with multifactorial functional decline and falling at home. -This point patient is observation status and lacks acute complex rehab diagnosis. His head CT is nonacute and he is not being managed as Parkinsons patient. If MRI is also negative he can be managedat lower level of care. Medication adjustments per Neurology should help prevent falls and he would alsobenefit from outpatient f/u with Neurology. Patient was personally seen by me, Dr. Mcclain, on the day of encounter, reviewed the history and therelevant portions of the chart, including current orders, allied health and document management consultant notes, labs/imaging and performed wall elements of exam and I formulated the plan of care and facilitated the medical decision making. I completed a substantive portion of this encounter, the medical decision makingportion of this note in its entirety, including Allied health note review, nursing note review, document management consultant note review,discussion with nursing and case management, and more than 50% of my time was spent on counseling and coordination of care, time spent 35 minutes Documented By: Shamar Mcclain MD 05/25/24 1125 Signed By: 05/25/24 1132 [facility]03-13-2025 Progress note Author Prashant Garcia [facility] Note Date/Time May 24, 2024 3:1 2pm [facility] EN[facility] [address] [place] [address] Neurology Progress Note Signed Patient: Des Jacob MR#: [id number] 406 : 1940 Acct:[id number] Age/Sex: 83 / M Adm Date: 5 Loc: Room: [address] [place] [address] Type: ADM INOo Attending Dr: Dread Toney DO Copies to: ~ Date of Service: 05/24/2024 Exam Physical Exam Vital Signs: Temp Pulse Resp BP Pulse Ox O2 Del Method 97.5 F L 57 L 18 176/65 H 94 L Room Air 05/24/24 08:11 05/24/24 08:11 05/24/24 08:11 05/24/24 09:02 05/24/24 08:11 05/24/24 08:20 Objective Vital Signs Vital Signs: Vital Signs - 24 hr 05/23/24 15:00 05/23/24 17:05 05/23/24 19:42 Temperature 98.6 F 98.1 F 97.3 F L Pulse Rate 69 Pulse Rate [Monitor] 75 66 Respiratory Rate 18 18 20 Blood Pressure 182/80 H Blood Pressure [Right Arm Sitting] Blood Pressure [Right Arm Standing] Blood Pressure [Right Arm Supine] Blood Pressure [Right Arm] 145/78 H 175/78 H 02 Sat by Pulse Oximetry 95 95 96 Oxygen Delivery Method Room Air Room Air Room Air 05/23/24 19:46 05/23/24 23:47 05/24/24 03:40 Temperature 98.5 F Pulse Rate 76 Pulse Rate [Monitor] Respiratory Rate 18 Blood Pressure 183/76 H Blood Pressure [Right Arm Sitting] Blood Pressure [Right Arm Standing] Blood Pressure [Right Arm Supine] Blood Pressure [Right Arm] 02 Sat by Pulse Oximetry 95 Oxygen Delivery Method Room Air Room Air Room Air 05/24/24 06:05 05/24/24 08:11 05/24/24 08:20 Temperature 97.5 F L Pulse Rate 60 57 L Pulse Rate [Monitor] Respiratory Rate 18 18 Blood Pressure 175/83 H 176/61 H Blood Pressure [Right Arm Sitting] Blood Pressure [Right Arm Standing] Blood Pressure [Right Arm Supine] Blood Pressure [Right Arm] 02 Sat by Pulse Oximetry 95 94 L Oxygen Delivery Method Room Air Room Air 05/24/24 09:02 Temperature Pulse Rate Pulse Rate [Monitor] Respiratory Rate Blood Pressure Blood Pressure [Right Arm Sitting] 159/65 H Blood Pressure [Right Arm Standing] 119/67 Blood Pressure [Right Arm Supine] 176/65 H Blood Pressure [Right Arm] 02 Sat by Pulse Oximetry Oxygen Delivery Method Labs 05/24/24 06:12 05/24/24 06:12 Lab Results: 05/24/24 06:12: Hemoglobin A1c 6.4 H, Ammonia 18 Assessment/Plan (1) Recurrent falls: (2) Declining functional status: (3) Tremor: Plan CONSULT REASON: New onset tremors SUBJECTIVE: Per sitter notes he was very active all night. He is sitting in his chair at the time of my encounter. Just got helped getting positioned there by nursing staff. Says his backside feels a little tender. Says all his scrapes and cuts and bruises feel little tender but no big deal. No new symptoms to report. EXAMINATION: Intermittent bradycardia in the 50s. In no distress. Healing scrapes/lacerations to right side of head, right forehead, right arm, right knee. Scattered bruises on other limbs and portion of body. Bruise on back on the left [facility] down. No significant edema. Normalwork of breathing. As of skin age associated findings. Scattered skin lesions in a right C5 and C6 distribution that he says are resolving shingles hoang. Affect normal. Patient is alert. Attention mildly impaired. Speech is fluent and nondysarthric. Pupils are equal and reactive. Ocular motility is full but he has a mild disconjugate gaze, seems like left exotropia but he switches [id number] with dominant eye, unclear chronicity. A subtle amount of pendular nystagmus with primary gaze. Loss of smooth pursuits. Facial sensation is normal. Hearing is significantly impaired. Facial strength is normal. Tongue is midline. Muscle bulk mildly reduced in limbs. Muscle tone feels mostly normal. Some gegenhalten. Some ratcheting movements when checkingfor cogwheel rigidity in arms. No resting tremors. Mild postural tremors. No bradykinesia, he moves quite rapidly and fluidly and seems sort of jumpy. Reflexes normal throughout. Light touch is normal. Vibratory sensation is diminished in feet. Limbs do not seem ataxic. DATA REVIEW: -CT head nonacute, lots of atrophy but not concerning for NPH -A1c 6.4% -B12 298, folate 11, TSH 2.3 -Orthostatic vital signs supine 176/65 and standing 119/67 ASSESSMENT: Frequent falls due to imbalance. Disconjugate gaze and some nystagmus and loss of smooth pursuits could suggest brainstem/cerebellar process, though I think his ocular findings are probably chronic/remote. Some minor sensory loss in hisfeet that could be partially contributory. Orthostatic vital signs markedly abnormal. I suspect orthostatic hypotension could be contributing to his falls. He mentions getting tremulous and feeling weak when he is upright and I suspect he has orthostatic tremors. He has a homealpha-brittany listed which is exacerbating this condition. He intermittently isfound to have mild bradycardia, and his listed home medication of donepezil could be worsening that. Family members reportedly concerned about progressive cognitive decline with concern for dementia. CT imaging does not look consistent with NPH. Overall presentation not very concerning for a parkinsonian disorder. He seemedto have some cogwheeling in bilateral upper extremities. More like gegenhalten than increased tone though. And no resting tremor and no bradykinesia. PLAN: 1. Donepezil is listed as a home medication. It is not ordered here. Donepezil might be contributing to or worsening his intermittent mild bradycardia. I am stopping it and we will start memantine 10 mg nightly instead. 2. Labs still pending: SPEP, immunofixation, RPR 3. Terazosin listed as a home medication. It is not ordered here. I would avoid alpha blockers in the setting of his significant orthostatic hypotension. 4. MRI brain pending. If the MRI is without acute findings, no other recommendations at this time. 5. He will need outpatient neurology and neuropsych Documented By: Prashant Garcia DO 05/24/24 1140 Signed By: <Electronically signed by Prashant Garcia DO> 05/24/24 8300 [facility] Work Phone: 1(482) 288-204303-13-2025 [place] [address] Neurology Progress Note Signed Patient: Des Jacob MR#: [id number] 406 : 1940 Acct:[id number] Age/Sex: 83 / M Adm Date: 5 Loc: 3T Room: [address] [place] [address] Type: ADM INOo Attending Dr: Dread Toney DO Copies to: ~ Date of Service: 05/24/2024 Exam Physical Exam Vital Signs: Temp Pulse Resp BP Pulse Ox O2 Del Method 97.5 F L 57 L 18 176/65 H 94 L Room Air 05/24/24 08:11 05/24/24 08:11 05/24/24 08:11 05/24/24 09:02 05/24/24 08:11 05/24/24 08:20 Objective Vital Signs Vital Signs: Vital Signs - 24 hr 05/23/24 15:00 05/23/24 17:05 05/23/24 19:42 Temperature 98.6 F 98.1 F 97.3 F L Pulse Rate 69 Pulse Rate [Monitor] 75 66 Respiratory Rate 18 18 20 Blood Pressure 182/80 H Blood Pressure [Right Arm Sitting] Blood Pressure [Right Arm Standing] Blood Pressure [Right Arm Supine] Blood Pressure [Right Arm] 145/78 H 175/78 H 02 Sat by Pulse Oximetry 95 95 96 Oxygen Delivery Method Room Air Room Air Room Air 05/23/24 19:46 05/23/24 23:47 05/24/24 03:40 Temperature 98.5 F Pulse Rate 76 Pulse Rate [Monitor] Respiratory Rate 18 Blood Pressure 183/76 H Blood Pressure [Right Arm Sitting] Blood Pressure [Right Arm Standing] Blood Pressure [Right Arm Supine] Blood Pressure [Right Arm] 02 Sat by Pulse Oximetry 95 Oxygen Delivery Method Room Air Room Air Room Air 05/24/24 06:05 05/24/24 08:11 05/24/24 08:20 Temperature 97.5 F L Pulse Rate 60 57 L Pulse Rate [Monitor] Respiratory Rate 18 18 Blood Pressure 175/83 H 176/61 H Blood Pressure [Right Arm Sitting] Blood Pressure [Right Arm Standing] Blood Pressure [Right Arm Supine] Blood Pressure [Right Arm] 02 Sat by Pulse Oximetry 95 94 L Oxygen Delivery Method Room Air Room Air 05/24/24 09:02 Temperature Pulse Rate Pulse Rate [Monitor] Respiratory Rate Blood Pressure Blood Pressure [Right Arm Sitting] 159/65 H Blood Pressure [Right Arm Standing] 119/67 Blood Pressure [Right Arm Supine] 176/65 H Blood Pressure [Right Arm] 02 Sat by Pulse Oximetry Oxygen Delivery Method Labs 05/24/24 06:12 05/24/24 06:12 Lab Results: 05/24/24 06:12: Hemoglobin A1c 6.4 H, Ammonia 18 Assessment/Plan (1) Recurrent falls: (2) Declining functional status: (3) Tremor: Plan CONSULT REASON: New onset tremors SUBJECTIVE: Per le notes he was very active all night. He is sitting in his chair at the time of my encounter. Just got helped getting positioned there by nursing staff. Says his backside feels a little tender. Says all his scrapes and cuts and bruises feel little tender but no big deal. No new symptoms to report. EXAMINATION: Intermittent bradycardia in the 50s. In no distress. Healing scrapes/lacerations to right side of head, right forehead, right arm, rightknee. Scattered bruises on other limbs and portion of body. Bruise on back on the left [facility]it[facility] down. No significant edema. Normalwork of breathing. As of skin age associated findings. Scattered skin lesions in a right C5 and C6 distribution that he says are resolving shingles hoang. Affect normal. Patient is alert. Attention mildly impaired. Speech is fluent and nondysarthric. Pupils are equal and reactive. Ocular motility is full but he has a mild disconjugate gaze, seems like left exotropia but he switches [id number] with dominant eye, unclear chronicity. A subtle amount of pendular nystagmus with primary gaze. Loss of smooth pursuits. Facial sensation is normal. Hearing is significantly impaired. Facial strength is normal. Tongue is midline. Muscle bulk mildly reduced in limbs. Muscle tone feels mostly normal. Some gegenhalten. Some ratcheting movements when checkingfor cogwheel r igidity in arms. No resting tremors. Mild postural tremors. No bradykinesia, he moves quite rapidlyand fluidly and seems sort of jumpy. Reflexes normal throughout. Light touch is normal. Vibratory sensation is diminished in feet. Limbs do not seem ataxic. DATA REVIEW: -CT head nonacute, lots of atrophy but not concerning for NPH -A1c 6.4% -B12 298, folate 11, TSH 2.3 -Orthostatic vital signs supine 176/65 and standing 119/67 ASSESSMENT: Frequent falls due to imbalance. Disconjugate gaze and some nystagmus and loss of smooth pursuits could suggest brainstem/cerebellar process, though I think his ocular findings are probably chronic/remote. Some minor sensory loss in hisfeet that could be partially contributory. Orthostatic vital signs markedly abnormal. I suspect orthostatic hypotension could be contributing to his falls. He mentions getting tremulous and feeling weak when he is upright and I suspect he hasorthostatic tremors. He has a homealpha-brittany listed which is exacerbating this condition. He intermittently isfound to have mild bradycardia, and his listed home medication of donepezil could be worsening that. Family members reportedly concerned about progressive cognitive decline with concern for dementia. CT imaging does not look consistent with NPH. Overall presentation not very concerning for a parkinsonian disorder. He seemedto have some cogwheeling in bilateral upper extremities. More like gegenhalten than increased tone though. And no resting tremor and no bradykinesia. PLAN: 1. Donepezil is listed as a home medication. It is not ordered here. Donepezil might be contributing to or worsening his intermittent mild bradycardia. I am stopping it and we will start memantine 10mg nightly instead. 2. Labs still pending: SPEP, immunofixation, RPR 3. Terazosin listed as a home medication. It is not ordered here. I would avoid alpha blockers in the setting of his significant orthostatic hypotension. 4. MRI brain pending. If the MRI is without acute findings, no other recommendations at this time. 5. He will need outpatient neurology and neuropsych Documented By: Prashant Garcia DO 05/24/24 1140 Signed By: 05/24/24 1512 [facility]03-13-2025 Progress note Author Dread Toney [facility] Note Date/Time May 24, 2024 12: 15pm [facility] EN[facility] [address] [place] [address] Hospitalist Progress Note Signed Patient: Des Jacob MR#: [id number] 406 : 1940 Acct:[id number] Age/Sex: 83 / M Adm Date: 5 Loc: Room: [address] [place] [address] Type: ADM INOo Attending Dr: Dread Toney DO Copies to: ~ Date of Service: 05/24/2024 Subjective Subjective Narrative: Seen and evaluated, currently sitting up in chair and very pleasant. No family present at bedside. Patient endorses getting a good nights rest last night Exam Physical Exam Vital Signs: Temp Pulse Resp BP Pulse Ox O2 Del Method 97.5 F L 57 L 18 176/65 H 94 L Room Air 05/24/24 08:11 05/24/24 08:11 05/24/24 08:11 05/24/24 09:02 05/24/24 08:11 05/24/24 08:20 Narrative: General: Awake alert to person and time, he is very pleasant. HEENT: 3cm healing laceration above his right eye, it is scabbed over. No active bleeding or drainage. No surrounding erythema. Neck: supple no masses, no lymphadenopathy CVS: regular rate and rhythm, no murmurs or gallops Respiratory: clear to auscultation bilaterally, no wheezing or crackles, symmetric expansion GI: soft, nondistended, nontender, positive bowel sounds with no organomegaly Extremity: moves all extremities, no restrictions of movements, no calf tenderness, no edema, large 6 cm laceration on his left arm which is scabbed over, no bleeding or surrounding erythema. Numerous small hematomas on his upper extremities. Neuro: AOx2, CN II-VII intact. Moves all extremities in all planes of motion. Skin: dry, intact no rashes or lesions Objective Lab Results 05/24/24 06:12 05/24/24 06:12 Meds Allergies and Active Meds Allergies No Known Allergies Allergy (Verified 05/18/24 16:47) Active Meds: Active Medications Generic Name Dose Route Start Last Admin Trade Name Moq PRN Reason Stop Dose Admin Acetaminophen 650 mg 05/23/24 13:10 Acetaminophen 325 Mg Tablet PO 05/23/25 13:09 Q6HR PRN Pain Scale 1 - 3 or fever Hydrocodone Bitart/Acetaminophen 1 tab 05/23/24 13:10 Hydrocodone/Acetaminophen 5-325 Mg Tablet PO Q4H PRN Pain Scale 4 - 7 Enoxaparin Sodium 40 mg 05/24/24 10:00 05/24/24 09:32 Enoxaparin 40 Mg/0.4 Ml Syringe SUBCUT 05/24/25 09:59 40 mg DAILY@10 MG Administration Ergocalciferol 1,250 mcg 05/24/24 09:00 05/24/24 08:35 Ergocalciferol 1,250 Mcg (50,000 Units) Capsule PO 05/24/25 08:59 1,250 mcg Th@0900 MG Administration Melatonin 5 mg 05/23/24 13:10 05/23/24 23:05 Melatonin 5 Mg Tablet PO 05/23/25 13:09 5 mg QHS PRN Administration Insomnia Ondansetron HCl 4 mg 05/23/24 13:10 Ondansetron 4 Mg/2 Ml Vial IV-PUSH 05/23/25 13:09 Q8H PRN Nausea And Vomiting Sodium Chloride 0 ml 05/23/24 07:20 05/24/24 08:36 Sodium Chloride 0.9 % 10 Ml Syringe IV-PUSH 05/23/25 07:19 10 ml PRN PRN Administration Flush A&P - Hospitalist Assessment/Plan (1) Tremor: Plan: ? Admit under observation ? Patient has had numerous falls lately with increased tremors ? PT OT consulted ? His BMP was within normal limits, hemoglobin is stable. ? TSH normal ?Vitamin D is slightly low, will initiate vitamin D weekly ? Neurology on consult for continuation of workup (2) Weakness: Plan: See above (3) Hypertension: Plan: Continue his home medications Plan ? DVT prophylaxis addressed ? Regular diet ? Full code Documented By: Dread Toney DO 05/24/24 1203 Signed By: <Electronically signed by Dread Toney DO> 05/24/24 1215 [facility] Work Phone: [phone]) 846-157403-13-2025 [place] [address] Hospitalist Progress Note Signed Patient: Des Jacob MR#: [id number] 406 : 1940 Acct:[id number] Age/Sex: 83 / M Adm Date: 5 Loc: 3T Room: [address] [place] [address] Type: ADM INOo Attending Dr: Dread Toney DO Copies to: ~ Date of Service: 05/24/2024 Subjective Subjective Narrative: Seen and evaluated, currently sitting up in chair and very pleasant. No family present at bedside. Patient endorses getting a good nights rest last night Exam Physical Exam Vital Signs: Temp Pulse Resp BP Pulse Ox O2 Del Method 97.5 F L 57 L 18 176/65 H 94 L Room Air 05/24/24 08:11 05/24/24 08:11 05/24/24 08:11 05/24/24 09:02 05/24/24 08:11 05/24/24 08:20 Narrative: General: Awake alert to person and time, he is very pleasant. HEENT: 3cm healing laceration above his right eye, it is scabbed over. No active bleeding or drainage. No surrounding erythema. Neck: supple no masses, no lymphadenopathy CVS: regular rate and rhythm, no murmurs or gallops Respiratory: clear to auscultation bilaterally, no wheezing or crackles, symmetric expansion GI: soft, nondistended, nontender, positive bowel sounds with no organomegaly Extremity: moves all extremities, no restrictions of movements, no calf tenderness, no edema, large6 cm laceration on his left arm which is scabbed over, no bleeding or surrounding erythema. Numerous small hematomas on his upper extremities. Neuro: AOx2, CN II-VII intact. Moves all extremities in all planes of motion. Skin: dry, intact no rashes or lesions Objective Lab Results 05/24/24 06:12 05/24/24 06:12 Meds Allergies and Active Meds Allergies No Known Allergies Allergy (Verified 05/18/24 16:47) Active Meds: Active Medications Generic Name Dose Route Start Last Admin Trade Name Freq PRN Reason Stop Dose Admin Acetaminophen 650 mg 05/23/24 13:10 Acetaminophen 325 Mg Tablet PO 05/23/25 13:09 Q6HR PRN Pain Scale 1 - 3 or fever Hydrocodone Bitart/Acetaminophen 1 tab 05/23/24 13:10 Hydrocodone/Acetaminophen 5-325 Mg Tablet PO Q4H PRN Pain Scale 4 - 7 Enoxaparin Sodium 40 mg 05/24/24 10:00 05/24/24 09:32 Enoxaparin 40 Mg/0.4 Ml Syringe SUBCUT 05/24/25 09:59 40 mg DAILY@10 MG Administration Ergocalciferol 1,250 mcg 05/24/24 09:00 05/24/24 08:35 Ergocalciferol 1,250 Mcg (50,000 Units) Capsule PO 05/24/25 08:59 1,250 mcg Th@0900 MG Administration Melatonin 5 mg 05/23/24 13:10 05/23/24 23:05 Melatonin 5 Mg Tablet PO 05/23/25 13:09 5 mg QHS PRN Administration Insomnia Ondansetron HCl 4 mg 05/23/24 13:10 Ondansetron 4 Mg/2 Ml Vial IV-PUSH 05/23/25 13:09 Q8H PRN Nausea And Vomiting Sodium Chloride 0 ml 05/23/24 07:20 05/24/24 08:36 Sodium Chloride 0.9 % 10 Ml Syringe IV-PUSH 05/23/25 07:19 10 ml PRN PRN Administration Flush A&P - Hospitalist Assessment/Plan (1) Tremor: Plan: ? Admit under observation ? Patient has had numerous falls lately with increased tremors ? PT OT consulted ? His BMP was within normal limits, hemoglobin is stable. ? TSH normal ?Vitamin D is slightly low, will initiate vitamin D weekly ? Neurology on consult for continuation of workup (2) Weakness: Plan: See above (3) Hypertension: Plan: Continue his home medications Plan ? DVT prophylaxis addressed ? Regular diet ? Full code Documented By: Dread Toney DO 05/24/24 1203 Signed By: 05/24/24 1215 [facility]03-12-2025 Consult note Author Prashant Garcia [facility] Note Date/Time May 23, 2024 6:2 5pm [facility] ENTER [address] [place] [address] Neurology Consult Note Signed Patient: Des Jacob MR#: [id number] 406 : 1940 Acct:[id number] Age/Sex: 83 / M Adm Date: 5 Loc: Room: [address] [place] [address] Type: ADM INOo Attending Dr: Dread Toney DO Copies to: DO Phani Heller DO Shawn J Warner, DO~ HPI Consult Date: 05/23/24 Cat And Dog Bather: Prashant Garcia DO [facility] Medical History (Updated 05/23/24 @ 16:03 by Elenita Munoz DO) Sleep apnea Uses C-pap Whooping cough as a child Hyperlipemia Insomnia BPH (benign prostatic hyperplasia) Erectile dysfunction Hearing loss Hypertension Coronary artery disease Diabetes Family History (Updated 10/28/22 @ 13:37 by Provider Conversion) Father Heart disease Mother Multiple sclerosis Father Myocardial infarction Heart disease 47 yrs Mother 38 yrs Multiple sclerosis Social History Smoking Status: Former smoker Substance Use Type: None Meds Medications and Allergies Allergies No Known Allergies Allergy (Verified 05/18/24 16:47) Home Medications aspirin 81 mg tablet,delayed release 81 mg PO DAILY 04/29/19 [History Confirmed 05/18/24] atorvastatin 40 mg tablet 1 tab PO DAILY 07/10/18 [History Confirmed 05/18/24] finasteride 5 mg tablet 1 tab PO DAILY 07/10/18 [History Confirmed 05/18/24] fluoxetine 20 mg capsule 1 tab PO DAILY 07/10/18 [History Confirmed 05/18/24] lisinopril 2.5 mg tablet 1 tab PO DAILY 07/10/18 [History Confirmed 05/18/24] metformin 500 mg tablet 1 tab PO BID 07/10/18 [History Confirmed 05/18/24] terazosin 1 mg capsule 1 tab PO DAILY 07/10/18 [History Confirmed 05/18/24] donepezil 10 mg tablet 10 mg PO HS 05/18/24 [History Confirmed 05/18/24] tadalafil 20 mg tablet (Cialis) 20 mg PO DAILY PRN ED 05/18/24 [History Confirmed 05/18/24] Exam Physical Exam Vital Signs: Temp Pulse Resp BP Pulse Ox O2 Del Method 98.1 F 66 18 175/78 H 95 Room Air 05/23/24 17:05 05/23/24 17:05 05/23/24 17:05 05/23/24 17:05 05/23/24 17:05 05/23/24 17:05 Results - Neuro Laboratory Findings 05/23/24 05:10 05/23/24 05:10 Diagnostic Findings Imaging/Impressions: ITS Impressions Chest X-Ray 05/23/24 06:47 IMPRESSION: NO ACUTE FINDINGS Impression dictated by: Shamar Clarke Jr., DDenisa05/23/2024 9:03 AM Dictation Location: [place] [address] 05/23/24 08:12 IMPRESSION: NO ACUTE INTRACRANIAL ABNORMALITY. MILD/MODERATE CHRONIC MICROVASCULAR CHANGES AND CENTRAL INVOLUTIONAL CHANGE. Impression dictated by: Romero Guerin M.D.05/23/2024 8:58 AM Dictation Location: [place] [address] Assessment/Plan (1) Recurrent falls: (2) Declining functional status: (3) Tremor: Plan CONSULT REASON: New onset tremors HPI: 83-year-old man. He came to the emergency department earlier today for evaluation with recurrent falls, said to have 6 falls in the past 2 weeks. His family is concerned that he is getting progressively weaker and concern for cognitive issues and overall concerned that he cannot take care of himself. Medical history said to include sleep apnea with CPAP usage (maybe?), hyperlipidemia, insomnia, hypertension, coronary artery disease, diabetes. He was seen here in the emergency department May 18, 2024 with chief complaint of weakness. He feels shaky. Especially when upright. When I talked to him today, he says he feels like his legs can feel weak and shaky when he is upright and he can topple like a sarina. He feels like he falls over due to imbalance as opposed to dropped to the ground from a drop attack. He mentions and shows me that he had shingles up and down his right armapproximating a C5 and C6 dermatome a week or 2 ago. He has numerous bruises and cuts and scrapes. Home medications said to include atorvastatin 40 mg, metformin, terazosin, aspirin 81 mg, fluoxetine, lisinopril, finasteride, donepezil. EXAMINATION: May 18, 2024 he did have some bradycardia in the 50s. No current bradycardia. In no distress. Healing scrapes/lacerations to right side of head, right forehead, right arm, right knee. Scattered bruises on other limbs and portion of body. Bruise on back on the left [facility] down. No significant edema. Normalwork of breathing. As of skin age associated findings. Scattered skin lesions in a right C5 and C6 distribution that he says are resolving shingles hoang. Affect normal. Patient is alert. Attention mildly impaired. Speech is fluent and nondysarthric. Pupils are equal and reactive. Ocular motility is full but he has a mild disconjugate gaze, seems like left exotropia but he switches [id number] with dominant eye, unclear chronicity. A subtle amount of pendular nystagmus with primary gaze. Loss of smooth pursuits. Facial sensation is normal. Hearing is normal. Facial strength is normal. Tongue is midline. Muscle bulk mildly reduced in limbs. Muscle tone feels mostly normal. Some gegenhalten. Some ratcheting movements when checking for cogwheel rigidity in arms. No resting tremors. Mild postural tremors. No bradykinesia,he moves quite rapidly and fluidly and seems sort of jumpy. Reflexes normal throughout. Light touch is normal. Vibratory sensation is diminished in feet. Limbs do not seem ataxic. DATA REVIEW: -CT head nonacute, lots of atrophy but not concerning for NPH ASSESSMENT: Frequent falls due to imbalance. Disconjugate gaze and some nystagmus and loss of smooth pursuits could suggest brainstem/cerebellar process. Some minor sensory loss in his feet that could be partially contributory. Family members reportedly concerned about progressive cognitive decline with concern for dementia. CT imaging does not look consistent with NPH. Overall presentation not very concerning for a parkinsonian disorder. He seemedto have some cogwheeling in bilateral upper extremities. More like gegenhalten than increased tone though. And no resting tremor and no bradykinesia. PLAN: 1. Orthostatic vital signs 2. Checking ammonia level 3. Neuropathy and cognitive lab work: B12, SPEP, immunofixation, RPR, A1c, TSH 4. MRI brain without contrast Documented By: Prashant Garcia DO 05/23/24 9413 Signed By: <Electronically signed by Prashant Garcia DO> 05/23/24 2597 [facility] Work Phone: 1(395) 774-796203-12-2025 [place] [address] Neurology Consult Note Signed Patient: Des Jacob MR#: [id number] 406 : 1940 Acct:[id number] Age/Sex: 83 / M Adm Date: 5 Loc: 3T Room: [address] [place] [address] Type: ADM INOo Attending Dr: Dread Toney DO Copies to: DO Phani Heller DO Shawn J Warner, DO~ HPI Consult Date: 05/23/24 Cat And Dog Bather: Prashant Garcia DO [facility] Medical History (Updated 05/23/24 @ 16:03 by Elenita Munoz DO) Sleep apnea Uses C-pap Whooping cough as a child Hyperlipemia Insomnia BPH (benign prostatic hyperplasia) Erectile dysfunction Hearing loss Hypertension Coronary artery disease Diabetes Family History (Updated 10/28/22 @ 13:37 by Provider Conversion) Father Heart disease Mother Multiple sclerosis Father Myocardial infarction Heart disease 47 yrs Mother 38 yrs Multiple sclerosis Social History Smoking Status: Former smoker Substance Use Type: None Meds Medications and Allergies Allergies No Known Allergies Allergy (Verified 05/18/24 16:47) Home Medications aspirin 81 mg tablet,delayed release 81 mg PO DAILY 07/10/18 [History Confirmed 05/18/24] atorvastatin 40 mg tablet 1 tab PO DAILY 07/10/18 [History Confirmed 05/18/24] finasteride 5 mg tablet 1 tab PO DAILY 07/10/18 [History Confirmed 05/18/24] fluoxetine 20 mg capsule 1 tab PO DAILY 07/10/18 [History Confirmed 05/18/24] lisinopril 2.5 mg tablet 1 tab PO DAILY 07/10/18 [History Confirmed 05/18/24] metformin 500 mg tablet 1 tab PO BID 07/10/18 [History Confirmed 05/18/24] terazosin 1 mg capsule 1 tab PO DAILY 07/10/18 [History Confirmed 05/18/24] donepezil 10 mg tablet 10 mg PO HS 05/18/24 [History Confirmed 05/18/24] tadalafil 20 mg tablet (Cialis) 20 mg PO DAILY PRN ED 05/18/24 [History Confirmed 05/18/24] Exam Physical Exam Vital Signs: Temp Pulse Resp BP Pulse Ox O2 Del Method 98.1 F 66 18 175/78 H 95 Room Air 05/23/24 17:05 05/23/24 17:05 05/23/24 17:05 05/23/24 17:05 05/23/24 17:05 05/23/24 17:05 Results - Neuro Laboratory Findings 05/23/24 05:10 05/23/24 05:10 Diagnostic Findings Imaging/Impressions: ITS Impressions Chest X-Ray 05/23/24 06:47 IMPRESSION: NO ACUTE FINDINGS Impression dictated by: Shamar Clarke Jr., D.O.05/23/2024 9:03 AM Dictation Location: [place] [address] 05/23/24 08:12 IMPRESSION: NO ACUTE INTRACRANIAL ABNORMALITY. MILD/MODERATE CHRONIC MICROVASCULAR CHANGES AND CENTRAL INVOLUTIONAL CHANGE. Impression dictated by: Romero Guerin M.D.05/23/2024 8:58 AM Dictation Location: [place] [address] Assessment/Plan (1) Recurrent falls: (2) Declining functional status: (3) Tremor: Plan CONSULT REASON: New onset tremors HPI: 83-year-old man. He came to the emergency department earlier today for evaluation with recurrent falls, said to have 6 falls in the past 2 weeks. His family is concerned that he is getting progressively weaker and concern for cognitive issues and overall concerned that he cannot take care of himself. Medical history said to include sleep apnea with CPAP usage (maybe?), hyperlipidemia, insomnia, hypertension, coronary artery disease, diabetes. He was seen here in the emergency department May 18, 2024 with chief complaint of weakness. He feels shaky. Especially when upright. When I talked to him today, he says he feels like his legs can feel weak and shaky when he is upright and he can topple like a sarina. He feels like he falls over due to imbalance as opposed to dropped to the ground from a drop attack. He mentions and shows me that he had shingles up and down his right armapproximating a C5 and C6 dermatome a week or 2 ago. He has numerous bruises and cuts and scrapes. Home medications said to include atorvastatin 40 mg, metformin, terazosin, aspirin 81 mg, fluoxetine, lisinopril, finasteride, donepezil. EXAMINATION: May 18, 2024 he did have some bradycardia in the 50s. No current bradycardia. In no distress. Healing scrapes/lacerations to right side of head, right forehead, right arm, rightknee. Scattered bruises on other limbs and portion of body. Bruise on back on the left [facility] down. No significant edema. Normalwork of breathing. As of skin age associated findings. Scattered skin lesions in a right C5 and C6 distribution that he says are resolving shingles hoang. Affect normal. Patient is alert. Attention mildly impaired. Speech is fluent and nondysarthric. Pupils are equal and reactive. Ocular motility is full but he has a mild disconjugate gaze, seems like left exotropia but he switches [id number] with dominant eye, unclear chronicity. A subtle amount of pendular nystagmus with primary gaze. Loss of smooth pursuits. Facial sensation is normal. Hearing is normal. Facial strength is normal. Tongue is midline. Muscle bulk mildly reduced in limbs. Muscle tone feels mostly normal. Some gegenhalten. Some ratcheting movements when checking for cogwheel rigidity in arms. No resting tremors. Mild postural tremors. No bradykinesia,he moves quite rapidly and fluidly andseems sort of jumpy. Reflexes normal throughout. Light touch is normal. Vibratory sensation is diminished in feet. Limbs do not seem ataxic. DATA REVIEW: -CT head nonacute, lots of atrophy but not concerning for NPH ASSESSMENT: Frequent falls due to imbalance. Disconjugate gaze and some nystagmus and loss of smooth pursuits could suggest brainstem/cerebellar process. Some minor sensory loss in his feet that could be partially contributory. Family members reportedly concerned about progressive cognitive decline with concern for dementia. CT imaging does not look consistent with NPH. Overall presentation not very concerning for a parkinsonian disorder. He seemedto have some cogwheeling in bilateral upper extremities. More like gegenhalten than increased tone though. And no resting tremor and no bradykinesia. PLAN: 1. Orthostatic vital signs 2. Checking ammonia level 3. Neuropathy and cognitive lab work: B12, SPEP, immunofixation, RPR, A1c, TSH 4. MRI brain without contrast Documented By: Prashant Garcia DO 05/23/241807 Signed By: 05/23/24 1825 [facility]03-12-2025 History and physical note Author Dread Toney [facility] Note Date/Time May 23, 2024 3:4 6pm [facility] ENTER [address] [place] [address] Hospitalist H&P Signed Patient: Des Jacob MR#: [id number] 406 : 1940 Acct:[id number] Age/Sex: 83 / M Adm Date: 5 Loc: ER Room: Type: [facility] ER Attending Dr: Copies to: Elenita Munoz, DO Phani Ambrocio,DO Dread Toney DO~ HPI DATE OF EXAMINATION: 05/23/24 CHIEF COMPLAINT: falls HISTORY OF PRESENT ILLNESS: Mr Jacob male with a past medical history of hyperlipidemia, BPH, hypertension, diabetes, and possible dementia who presents hospital today with his family for chief complaint of falls at home. Unfortunately, the patient is alert and oriented by 2, he currently believes he is at home and his son is out on a fluidrun and commit to get him shortly. He is not able to give me any history as faras why he is here, he does endorse having a few falls recently when I ask about the wounds on his head and his arm other than endorsing some falls he cannot tell me anymore. He denies being any pain. There is also no family present at time of evaluation, I did attempt to call the son and the daughter with numbers listed in the computer and there is no answer. On chart review, patient was just here in the emergency room on May 18 for these falls, there was mention of having increased tremors recently which appearto have gotten worse in the past week or 2. Review of Systems Review of Systems Unobtainable due to mental status [facility] Medical History (Updated 05/23/24 @ 15:43 by Dread Toney, ) Sleep apnea Uses C-pap Whooping cough as a child Hyperlipemia Insomnia BPH (benign prostatic hyperplasia) Erectile dysfunction Hearing loss Hypertension Coronary artery disease Diabetes Family History (Updated 10/28/22 @ 13:37 by Provider Conversion) Father Heart disease Mother Multiple sclerosis Father Myocardial infarction Heart disease 47 yrs Mother 38 yrs Multiple sclerosis Social History Smoking Status: Unknown if ever smoked Substance Use Type: None Meds Medications and Allergies Allergies No Known Allergies Allergy (Verified 05/18/24 16:47) Home Medications aspirin 81 mg tablet,delayed release 81 mg PO DAILY 07/10/18 [History Confirmed 05/18/24] atorvastatin 40 mg tablet 1 tab PO DAILY 07/10/18 [History Confirmed 05/18/24] finasteride 5 mg tablet 1 tab PO DAILY 07/10/18 [History Confirmed 05/18/24] fluoxetine 20 mg capsule 1 tab PO DAILY 07/10/18 [History Confirmed 05/18/24] lisinopril 2.5 mg tablet 1 tab PO DAILY 07/10/18 [History Confirmed 05/18/24] metformin 500 mg tablet 1 tab PO BID 07/10/18 [History Confirmed 05/18/24] terazosin 1 mg capsule 1 tab PO DAILY 07/10/18 [History Confirmed 05/18/24] donepezil 10 mg tablet 10 mg PO HS 05/18/24 [History Confirmed 05/18/24] tadalafil 20 mg tablet (Cialis) 20 mg PO DAILY PRN ED 05/18/24 [History Confirmed 05/18/24] Exam Physical Exam Vital Signs: Pulse Resp BP Pulse Ox O2 Del Method 72 20 177/79 H 94 L Room Air 05/23/24 11:00 05/23/24 11:00 05/23/24 11:00 05/23/24 11:00 05/23/24 11:00 Narrative: General: Awake alert to person and time, he is very pleasant. HEENT: 3cm healing laceration above his right eye, it is scabbed over. No active bleeding or drainage. No surrounding erythema. Neck: supple no masses, no lymphadenopathy CVS: regular rate and rhythm, no murmurs or gallops Respiratory: clear to auscultation bilaterally, no wheezing or crackles, symmetric expansion GI: soft, nondistended, nontender, positive bowel sounds with no organomegaly Extremity: moves all extremities, no restrictions of movements, no calf tenderness, no edema, large 6 cm laceration on his left arm which is scabbed over, no bleeding or surrounding erythema. Numerous small hematomas on his upper extremities. Neuro: AOx2, CN II-VII intact. Moves all extremities in all planes of motion. Skin: dry, intact no rashes or lesions Results - Hospitalist H&P Lab Results Labs: Laboratory Last Values Corrected WBC 8.0 X10E3/uL (4.1-10.5) 05/23/24 05:10 Uncorrected WBC Count 8.0 x10E3/uL (4.1-10.5) 05/23/24 05:10 RBC 4.12 x10E6/uL (3.90-5.60) 05/23/24 05:10 Hgb 12.8 g/dL (13.0-17.0) L 05/23/24 05:10 Hct 38.0 % (38.8-50.0) L 05/23/24 05:10 MCV 92.2 fl (83.5-101) 05/23/24 05:10 MCH 31.1 pg (27.5-35.2) 05/23/24 05:10 MCHC 33.7 g/dL (32.5-35.6) 05/23/24 05:10 RDW 14.2 % (12.0-14.8) 05/23/24 05:10 Plt Count 172 x10E3/uL (150-450) 05/23/24 05:10 MPV 9.7 fl (6.6-10.1) 05/23/24 05:10 Neut % (Auto) 71.3 % (.) 05/23/24 05:10 Lymph % (Auto) 16.5 % (.) 05/23/24 05:10 [place] % (Auto) 9.4 % (.) 05/23/24 05:10 Eos % (Auto) 2.4 % (.) 05/23/24 05:10 Baso % (Auto) 0.4 % (.) 05/23/24 05:10 Nucleat RBC Rel Count 0.0 /100 WBC (0-0.5) 05/23/24 05:10 Neut # (Auto) 5.7 x10E3/uL (1.8-7.7) 05/23/24 05:10 Lymph # (Auto) 1.3 x10E3/uL (1.00-4.8) 05/23/24 05:10 [place] # (Auto) 0.8 x10E3/uL (0.0-0.8) 05/23/24 05:10 Eos # (Auto) 0.2 x10E3/uL (0.0-0.45) 05/23/24 05:10 Baso # (Auto) 0.0 x10E3/uL (0.0-0.2) 05/23/24 05:10 PHA Creatinine Clear 52.16 05/23/24 05:10 Sodium 139 mmol/L (136-145) 05/23/24 05:10 Potassium 4.1 mmol/L (3.5-5.1) 05/23/24 05:10 Chloride 106 mmol/L (98-107) 05/23/24 05:10 Carbon Dioxide 22.5 mmol/L (21.0-31.0) 05/23/24 05:10 Anion Gap 14.6 mEq/L (6.0-15.0) 05/23/24 05:10 BUN 30 mg/dL (7-25) H 05/23/24 05:10 Creatinine 1.17 mg/dL (0.70-1.30) 05/23/24 05:10 Est GFR (CKD-EPI) > 60.0 mL/Min 05/23/24 05:10 Glucose 156 mg/dL (70-100) H 05/23/24 05:10 Calcium 8.9 mg/dL (8.6-10.3) 05/23/24 05:10 Magnesium 1.7 mg/dL (1.9-2.7) L 05/23/24 05:10 Total Bilirubin 1.2 mg/dl (0.3-1.0) H 05/23/24 05:10 AST 19 U/L (13-39) 05/23/24 05:10 ALT 12 U/L (7-52) 05/23/24 05:10 Alkaline Phosphatase 97 U/L (34-104) 05/23/24 05:10 Total Creatine Kinase 114 U/L (30-223) 05/23/24 05:10 Troponin I High Sens 8 ng/L (0-20) 05/23/24 05:10 Total Protein 6.6 gm/dL (6.4-8.9) 05/23/24 05:10 Albumin 3.8 gm/dL (3.5-5.7) 05/23/24 05:10 Globulin 2.8 gm/dL 05/23/24 05:10 Albumin/Globulin Ratio 1.4 05/23/24 05:10 Vitamin B12 263 pg/mL (180-914) 05/23/24 05:10 25-OH Vitamin D Total 20.7 ng/mL (30-100) L 05/23/24 05:10 Folate 11.0 ng/mL (>5.9) 05/23/24 05:10 TSH 3rd Generation 2.77 uIU/mL (0.45-5.33) 05/23/24 05:10 Urine Color Yellow (Yellow) 05/23/24 08:00 Urine Appearance Clear (Clear) 05/23/24 08:00 Urine pH 5.5 (5.0-9.0) 05/23/24 08:00 Ur Specific [place] 1.029 (1.001-1.030) 05/23/24 08:00 Urine Protein 70 mg/dL (Negative) H 05/23/24 08:00 Urine Glucose (UA) 30 mg/dL (Normal) H 05/23/24 08:00 Urine Ketones Trace (Negative) H 05/23/24 08:00 Urine Occult Blood Negative (Negative) 05/23/24 08:00 Urine Nitrite Negative (Negative) 05/23/24 08:00 Urine Bilirubin Negative (Negative) 05/23/24 08:00 Urine Urobilinogen 2 mg/dL (Normal) H 05/23/24 08:00 Ur Leukocyte Esterase Negative (Negative) 05/23/24 08:00 Urine RBC 1-2 /HPF (0-4) 05/23/24 08:00 Urine WBC 1-2 /HPF (0-4) 05/23/24 08:00 Ur Squamous Epith Cells N/A 05/23/24 08:00 Urine Bacteria None seen /HPF (None Seen) 05/23/24 08:00 Cellular Casts 1-2 /LPF (None Seen) H 05/23/24 08:00 Hyaline Casts 0-8 /LPF (0-8) 05/23/24 08:00 Urine Mucus Rare /LPF 05/23/24 08:00 Assessment & Plan Assessment/Plan (1) Tremor: Plan: ? Admit under observation ? Patient has had numerous falls lately with increased tremors ? PT OT consulted ? His BMP was within normal limits, hemoglobin is stable. ? Will check TSH, vitamin D, B12, folic acid the morning ? Will also consult neurology for Parkinson's evaluation to see if he will benefit from Sinemet ? At this point in time we will admit for a basic workup for Parkinson's and other organic causes of weakness to look for reversible causes (2) Weakness: Plan: See above (3) Hypertension: Plan: Continue his home medications Plan ? DVT prophylaxis addressed ? Regular diet ? Full code, I was unable to confirm this as I was not able to contact anyone inhis family. The patient is alert and oriented by 2 and can also not confirm this. This point time will be full code until this can be confirmed at a later point in time. IP vs OBS Justification Based on differential dx, clinical care plan, and risk of adverse events, if untreated, in my clinical judgement this patient requires an acute care setting as: OBSERVATION because of an expectation of an under 2 midnight stay. Estimated length of stay (# of days): 1 Documented By: Dread Toney DO 05/23/24 1537 Signed By: <Electronically signed by Dread Toney DO> 05/23/24 3227 [facility] Work Phone: 1(853) 439-904503-12-2025 [place] [address] Hospitalist H&P Signed Patient: Des Jacob MR#: [id number] 406 : 1940 Acct:[id number] Age/Sex: 83 / M Adm Date: 5 Loc: ER Room: Type: [facility] ER Attending Dr: Copies to: DO Phani Torrez DO Shawn J Warner, DO~ HPI DATE OF EXAMINATION: 05/23/24 CHIEF COMPLAINT: falls HISTORY OF PRESENT ILLNESS: Mr Jacob male with a past medical history of hyperlipidemia, BPH, hypertension, diabetes, and possible dementia who presents hospital today with his family for chief complaint of falls at home. Unfortunately, the patient is alert and oriented by 2, he currently believes he is at home and his son is out on a fluidrun and commit to get him shortly. He is not able to give me any history as faras why he is here, he does endorse having a few falls recently when I ask about the wounds on his head and his arm other than endorsing some falls he cannot tell me anymore. He denies being any pain. There is also no family present at time of evaluation, I did attempt to call the son and the daughter with numbers listed in the computer and there is no answer. On chart review, patient was just here in the emergency room on May 18 for these falls, there was mention of having increased tremors recently which appearto have gotten worse in the past week or 2. Review of Systems Review of Systems Unobtainable due to mental status [facility] Medical History (Updated 05/23/24 @ 15:43 by Dread Toney DO) Sleep apnea Uses C-pap Whooping cough as a child Hyperlipemia Insomnia BPH (benign prostatic hyperplasia) Erectile dysfunction Hearing loss Hypertension Coronary artery disease Diabetes Family History (Updated 10/28/22 @ 13:37 by Provider Conversion) Father Heart disease Mother Multiple sclerosis Father Myocardial infarction Heart disease 47 yrs Mother 38 yrs Multiple sclerosis Social History Smoking Status: Unknown if ever smoked Substance Use Type: None Meds Medications and Allergies Allergies No Known Allergies Allergy (Verified 05/18/24 16:47) Home Medications aspirin 81 mg tablet,delayed release 81 mg PO DAILY 07/10/18 [History Confirmed 05/18/24] atorvastatin 40 mg tablet 1 tab PO DAILY 07/10/18 [History Confirmed 05/18/24] finasteride 5 mg tablet 1 tab PO DAILY 07/10/18 [History Confirmed 05/18/24] fluoxetine 20 mg capsule 1 tab PO DAILY 07/10/18 [History Confirmed 05/18/24] lisinopril 2.5 mg tablet 1 tab PO DAILY 07/10/18 [History Confirmed 05/18/24] metformin 500 mg tablet 1 tab PO BID 07/10/18 [History Confirmed 05/18/24] terazosin 1 mg capsule 1 tab PO DAILY 07/10/18 [History Confirmed 05/18/24] donepezil 10 mg tablet 10 mg PO HS 05/18/24 [History Confirmed 05/18/24] tadalafil 20 mg tablet (Cialis) 20 mg PO DAILY PRN ED 05/18/24 [History Confirmed 05/18/24] Exam Physical Exam Vital Signs: Pulse Resp BP Pulse Ox O2 Del Method 72 20 177/79 H 94 L Room Air 05/23/24 11:00 05/23/24 11:00 05/23/24 11:00 05/23/24 11:00 05/23/24 11:00 Narrative: General: Awake alert to person and time, he is very pleasant. HEENT: 3cm healing laceration above his right eye, it is scabbed over. No active bleeding or drainage. No surrounding erythema. Neck: supple no masses, no lymphadenopathy CVS: regular rate and rhythm, no murmurs or gallops Respiratory: clear to auscultation bilaterally, no wheezing or crackles, symmetric expansion GI: soft, nondistended, nontender, positive bowel sounds with no organomegaly Extremity: moves all extremities, no restrictions of movements, no calf tenderness, no edema, large6 cm laceration on his left arm which is scabbed over, no bleeding or surrounding erythema. Numerous small hematomas on his upper extremities. Neuro: AOx2, CN II-VII intact. Moves all extremities in all planes of motion. Skin: dry, intact no rashes or lesions Results - Hospitalist H&P Lab Results Labs: Laboratory Last Values Corrected WBC 8.0 X10E3/uL (4.1-10.5) 05/23/24 05:10 Uncorrected WBC Count 8.0 x10E3/uL (4.1-10.5) 05/23/24 05:10 RBC 4.12 x10E6/uL (3.90-5.60) 05/23/24 05:10 Hgb 12.8 g/dL (13.0-17.0) L 05/23/24 05:10 Hct 38.0 % (38.8-50.0) L 05/23/24 05:10 MCV 92.2 fl (83.5-101) 05/23/24 05:10 MCH 31.1 pg (27.5-35.2) 05/23/24 05:10 MCHC 33.7 g/dL (32.5-35.6) 05/23/24 05:10 RDW 14.2 % (12.0-14.8) 05/23/24 05:10 Plt Count 172 x10E3/uL (150-450) 05/23/24 05:10 MPV 9.7 fl (6.6-10.1) 05/23/24 05:10 Neut % (Auto) 71.3 % (.) 05/23/24 05:10 Lymph % (Auto) 16.5 % (.) 05/23/24 05:10 [place] % (Auto) 9.4 % (.) 05/23/24 05:10 Eos % (Auto) 2.4 % (.) 05/23/24 05:10 Baso % (Auto) 0.4 % (.) 05/23/24 05:10 Nucleat RBC Rel Count 0.0 /100 WBC (0-0.5) 05/23/24 05:10 Neut # (Auto) 5.7 x10E3/uL (1.8-7.7) 05/23/24 05:10 Lymph # (Auto) 1.3 x10E3/uL (1.00-4.8) 05/23/24 05:10 [place] # (Auto) 0.8 x10E3/uL (0.0-0.8) 05/23/24 05:10 Eos # (Auto) 0.2 x10E3/uL (0.0-0.45) 05/23/24 05:10 Baso # (Auto) 0.0 x10E3/uL (0.0-0.2) 05/23/24 05:10 PHA Creatinine Clear 52.16 05/23/24 05:10 Sodium 139 mmol/L (136-145) 05/23/24 05:10 Potassium 4.1 mmol/L (3.5-5.1) 05/23/24 05:10 Chloride 106 mmol/L (98-107) 05/23/24 05:10 Carbon Dioxide 22.5 mmol/L (21.0-31.0) 05/23/24 05:10 Anion Gap 14.6 mEq/L (6.0-15.0) 05/23/24 05:10 BUN 30 mg/dL (7-25) H 05/23/24 05:10 Creatinine 1.17 mg/dL (0.70-1.30) 05/23/24 05:10 Est GFR (CKD-EPI) > 60.0 mL/Min 05/23/24 05:10 Glucose 156 mg/dL (70-100) H 05/23/24 05:10 Calcium 8.9 mg/dL (8.6-10.3) 05/23/24 05:10 Magnesium 1.7 mg/dL (1.9-2.7) L 05/23/24 05:10 Total Bilirubin 1.2 mg/dl (0.3-1.0) H 05/23/24 05:10 AST 19 U/L (13-39) 05/23/24 05:10 ALT 12 U/L (7-52) 05/23/24 05:10 Alkaline Phosphatase 97 U/L (34-104) 05/23/24 05:10 Total Creatine Kinase 114 U/L (30-223) 05/23/24 05:10 Troponin I High Sens 8 ng/L (0-20) 05/23/24 05:10 Total Protein 6.6 gm/dL (6.4-8.9) 05/23/24 05:10 Albumin 3.8 gm/dL (3.5-5.7) 05/23/24 05:10 Globulin 2.8 gm/dL 05/23/24 05:10 Albumin/Globulin Ratio 1.4 05/23/24 05:10 Vitamin B12 263 pg/mL (180-914) 05/23/24 05:10 25-OH Vitamin D Total 20.7 ng/mL (30-100) L 05/23/24 05:10 Folate 11.0 ng/mL (>5.9) 05/23/24 05:10 TSH 3rd Generation 2.77 uIU/mL (0.45-5.33) 05/23/24 05:10 Urine Color Yellow (Yellow) 05/23/24 08:00 Urine Appearance Clear (Clear) 05/23/24 08:00 Urine pH 5.5 (5.0-9.0) 05/23/24 08:00 Ur Specific [place] 1.029 (1.001-1.030) 05/23/24 08:00 Urine Protein 70 mg/dL (Negative) H 05/23/24 08:00 Urine Glucose (UA) 30 mg/dL (Normal) H 05/23/24 08:00 Urine Ketones Trace (Negative) H 05/23/24 08:00 Urine Occult Blood Negative (Negative) 05/23/24 08:00 Urine Nitrite Negative (Negative) 05/23/24 08:00 Urine Bilirubin Negative (Negative) 05/23/24 08:00 Urine Urobilinogen 2 mg/dL (Normal) H 05/23/24 08:00 Ur Leukocyte Esterase Negative (Negative) 05/23/24 08:00 Urine RBC 1-2 /HPF (0-4) 05/23/24 08:00 Urine WBC 1-2 /HPF (0-4) 05/23/24 08:00 Ur Squamous Epith Cells N/A 05/23/24 08:00 Urine Bacteria None seen /HPF (None Seen) 05/23/24 08:00 Cellular Casts 1-2 /LPF (None Seen) H 05/23/24 08:00 Hyaline Casts 0-8 /LPF (0-8) 05/23/24 08:00 Urine Mucus Rare /LPF 05/23/24 08:00 Assessment & Plan Assessment/Plan (1) Tremor: Plan: ? Admit under observation ? Patient has had numerous falls lately with increased tremors ? PT OT consulted ? His BMP was within normal limits, hemoglobin is stable. ? Will check TSH, vitamin D, B12, folic acid the morning ? Will also consult neurology for Parkinson's evaluation to see if he will benefit from Sinemet ? At this point in time we will admit for a basic workup for Parkinson's and other organic causes of weakness to look for reversible causes (2) Weakness: Plan: See above (3) Hypertension: Plan: Continue his home medications Plan ? DVT prophylaxis addressed ? Regular diet ? Full code, I was unable to confirm this as I was not able to contact anyone inhis family. The patient is alert and oriented by 2 and can also not confirm this. This point time will be full code until this can be confirmed at a later point in time. IP vs OBS Justification Based on differential dx, clinical care plan, and risk of adverse events, if untreated, in my clinical judgement this patient requires an acute care setting as: OBSERVATION because of an expectation of an under 2 midnight stay. Estimated length of stay (# of days): 1 Documented By: Dread Toney DO 05/23/24 1537 Signed By: 05/23/24 1546 [facility]03-12-2025 Evaluation note* Diagnosis Onset Date Resolution Status Admit Date Declining functional status acute May 23, 2024 1:00pm Hypertension acute May 23, 2024 1:00pm Recurrent falls acute May 1:00pm Tremor acute May 23 1:00pm Weakness acute May 23 1:00pm [facility] Work Phone: 1(688) 429-652803-12-2025 Evaluation note* Diagnosis Onset Date Resolution Status Admit Date Declining functional status acute May 23, 2024 1:00pm Dementia acute May 23 1:00pm Hypertension acute May 23, 2024 1:00pm Obstructive sleep apnea acute M 2024 1:00pm Orthostatic hypotension acute M 2024 1:00pm Recurrent falls acute May 1:00pm Weakness acute May 23 1:00pm Tremor inactive May 23 1:00pm [facility] Work Phone: 1(802) 518-540803-12-2025 [facility] [place] [address] [place] [address] CT Scan Report Signed Patient: Des Jacob MR#: [id number] 406 : 1940 Acct:[id number] Age/Sex: 83 / M ADM Date: 5 Loc: ER Room: Type: [facility] ER Attending Dr: Copies to: Elenita Munoz DO~ Ordering Provider: Elenita D Munoz, DO Date of Service: 05/23/24 CT/CT head/brain wo con: falls CT BRAIN WITHOUT CONTRAST: CLINICAL HISTORY: Fell, weakness, abrasion right side of the face COMPARISON: 05/18/2024 TECHNIQUE: Contiguous axial unenhanced images were obtained through the brain. This CT exam was performed using one or more following dose reduction techniques: Automated exposure control, adjustmentof the mA and/or kV accordingto patient size, or use of iterative reconstruction technique. FINDINGS: There is no evidence of midline shift, intra or extra-axial fluid collection, hemorrhage or CT evidence of large vascular stroke. Tahs-md-kganikzi central involutional changes and chronic small vessel ischemic disease. Intracranial vascular calcifications. Visualized intraorbital contents appear unremarkable. Visualized paranasal sinuses are clear. Right frontal scalp soft tissue swelling. No calvarial fracture. CT/CT head/brain wo con IMPRESSION: NO ACUTE INTRACRANIAL ABNORMALITY. MILD/MODERATE CHRONIC MICROVASCULAR CHANGES AND CENTRAL INVOLUTIONAL CHANGE. Impression dictated by: Romero Guerin M.D.05/23/2024 8:58 AM Dictation Location: [place] [address] Transcribed By: [facility] 05/23/24857 Dictated By: Romero Guerin MD 05/23/2455 Signed By: 05/23/2458 [facility] Work Phone: 1(277) 228-668103-07-2025 Radiology Diagnostic study [facility] [place] [address] [place] [address] CT Scan Report Signed Patient: Des Jacob MR#: [id number] : 1940 Acct:[id number] Age/Sex: 83 / M ADM Date: 5 Loc: ER Room: Type: [facility] ER Attending Dr: Copies to: Floyd Moseley MD~ Ordering Provider: Floyd Moseley MD Date of Service: 05/18/24 CT/CT head/brain wo con: Weakness, off balance CT BRAIN WITHOUT CONTRAST: CLINICAL HISTORY: Weakness, loss of balance and frequent falls COMPARISON: None TECHNIQUE: Contiguous axial unenhanced images were obtained through the brain. This CT exam was performed using one or more following dose reduction techniques: Automated exposure control, adjustmentof the mA and/or kV accordingto patient size, or use of iterative reconstruction technique. FINDINGS: There is generalized atrophy. The ventricles are within normal limitsfor size and position. 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 There are no additional areas of abnormal attenuation. There is no hemorrhage, mass effect or extra-axial collections. The calvarium is intact. There is minor right maxillary mucosal thickening. The remaining imaged paranasal sinuses and mastoid air cells are clear. There is vertebral artery and carotid siphon plaque. CT/CT head/brain wo con IMPRESSION: ATROPHY AND CHRONIC MICROVASCULAR DISEASE. NO ACUTE INTRACRANIAL TRAUMA. Impression dictated by: Aurelia Michael M.D.05/18/2024 5:47 PM Dictation Location: [place] [address] Transcribed By: [facility] 05/18/241746 Dictated By: Aurelia Michael MD 05/18/241742 Signed By: 05/18/241746 [facility] Work Phone: 1([phone]) 293-204803-06-2025 History of Present illness Narrative* Checo Baeza MD - 05/17/2024 11:35 AM EST Images from the original note were not included. Skin Check Location: Patient requests a skin examination from the waist up Dermatologic history: history of Actinic Keratosis Last visit: 1 year ago Lesions: Location: right ankle Duration: 1 year Quality: denies pain, denies itch Associated symptoms: enlarged Treatments: none Rash Location: right arm Duration: unsure Quality: itchy Associated symptoms: red, blisters Current treatments: none Established patient All pertinent medical history, medications, and allergies were reviewed. General Exam: alert, oriented to person, place, and time, normal affect, well appearing uses a wheelchair Accompanied by spouse A complete skin exam was offered, pt declined. Areas not examined despite medical recommendation: From the waist down Scalp, Examined , exam limited by hair Head, Face Examined Neck Examined Chest Examined Back Examined Abdomen Examined Right arm Examined Left arm Examined Hands Examined Digits,nails: Examined Lymphatics: Not examined 1. Seborrheic keratosis Scalp Stuck on verrucous, bustamante-brown papules and plaques. Patient was counseled regarding these benign growths. Removal is normally not necessary, but they may be removed if they are symptomatic or for cosmetic reasons. 2. Seborrheic keratosis, inflamed Right Ankle - Anterior [place] and brown stuck on verrucous scaly papule with surrounding erythema The patient was informed that symptomatic seborrheic keratoses are benign growths that become inflamed, itchy, tender, traumatized, caught on clothing, or bleed. Symptomatic lesions can be treated with cryotherapy or curretage. Thicker lesions treated with cryotherapy may require more than one treatment. The patient was instructed to notify the office if abnormal redness or tenderness develops atthe treatment site. Cryotherapy today, see procedure note. Diagnosis: Inflamed seborrheic keratosis Indication: Inflamed Consent: Verbal consent was obtained and risks were discussed, including, but not limited to risks of scarring, darker or choral director pigmentary changes, recurrence, incomplete removal and infection. Method: Liquid nitrogen was used to treat the lesion(s) with two 5-10 second freeze-thaw cycles Number of lesions treated: 1 Post-procedure instructions: Instructions were given orally and in writing. The office will be contacted if the lesion fails to resolve despite treatment, or if a side effect develops such as abnormal crusting, scabbing, redness or tenderness Cryotherapy, skin lesion - Right Ankle - Anterior 3. Actinic keratosis (3) Left Latter Day, Right Parotid Area, Right Temporal Scalp Erythematous scaly papules Patient was counseled regarding these sun-induced growths that can develop into squamous cell carcinoma if left untreated. Discussed treatment with cryotherapy. It was emphasized that any treated lesions that fail to resolve should be re- evaluated. Cryotherapy performed today; see procedure note Diagnosis: Actinic keratosis Indication: Precancerous Location: see skin exam Consent: Verbal consent was obtained and risks were discussed, including, but not limited to risks of scarring, darker or choral director pigmentary changes, recurrence, incomplete removal and infection. Method: Liquid nitrogen was used to treat the lesion(s) with two 5-10 second freeze-thaw cycles. Number of lesions treated: 3 Post-procedure instructions: Instructions were given orally and in writing. The office will be contacted if the lesion fails to resolve despite treatment, or if a side effect develops such as abnormal crusting, scabbing, redness or tenderness Cryotherapy, skin lesion - Left L[place] Day, Right Parotid Area, Right Temporal Scalp 4. Herpes zoster without complication Right Arm Grouped vesicles and erosions in a dermatomal distribution Recommend Valtrex 1 gm TID x 7 days. Notify office if worsening despite treatment. Related Medications valACYclovir (Valtrex) 1 g tablet Take 1 tablet, by mouth, three times a day x 7 days Next Visit: 1 year documented in this encounterSt. Luke's [id number] History of Present illness Narrative* Phani Ambrocio, DO - 03/01/2024 10:30 AM EST Images from the original note were not included. Des Jacob is a 83 y.o. male presents with chief complaint of 6 mos. follow up (Pt is being seen today for 6 mos follow up and management of chronic conditions. Pt had lab work done in preparations for today's visit , results and recommendations will be reviewed today. ) HPI: I have reviewed and reconciled the history and medication list with the patient today. PAST MEDICAL HISTORY: Past Medical History: Diagnosis Date BPH (benign prostatic hyperplasia) CAD (coronary artery disease) ([facility]) Hearing loss HTN (hypertension) ([facility]) Insomnia Type 2 diabetes mellitus ([facility]) SURGICAL HISTORY: Past Surgical History: Procedure Laterality Date COLONOSCOPY 07/10/[address] Palacio .Dx with Diverticulosis OTHER SURGICAL HISTORY 2010 Stents SOCIAL HISTORY: Social History Tobacco Use Smoking status: Former Current packs/day: 0.00 Types: Cigarettes Quit date: 06/11/1985 Years since quittin.7 Smokeless tobacco: Never Tobacco comments: Ex moderate cigarette smoker (10-19 cigarettes/day) Vaping Use Vaping status: Never Used Substance Use Topics Alcohol use: Yes Comment: Alcohol: 6 or more drinks less than monthly; 1-2 drinks/monthly or less; Caffeine: 3-4 cups/day Drug use: Never Depression: At risk (08/31/2023) PHQ-2 PHQ-2 Score: 5 FAMILY HISTORY: Family History Problem Relation Name Age of Onset Multiple sclerosis Mother Heart disease Father Melanoma Neg Hx MEDICATIONS: Current Outpatient Medications Medication Instructions Alcohol Sheets (Alcoh-Wipe) sheet Test daily before all meals/snacks and once before bedtime. aspirin (ASPIR) 81 mg, Once atorvastatin (LIPITOR) 40 mg, Oral, Nightly donepezil (ARICEPT) 10 mg, Oral, Nightly finasteride (PROSCAR) 5 mg, Oral, Daily fluorouracil (Efudex) 5 % cream Apply to directed areas on the temples and cheeks twice a day x 14 days. Dispense 30 day supply but only use for 14 days. FLUoxetine (PROZAC) 40 mg, Oral, Daily glucose blood (Accu-Chek Lacy Plus) test strip 1 each, Other, Daily Lancets Misc. (Accu-Chek Softclix Lancet Dev) kit 1 Device, Other, Daily, Test daily memantine (NAMENDA) 10 mg, Oral, 2 times daily metFORMIN (GLUCOPHAGE) 500 mg, Oral, Daily with breakfast nystatin-triamcinolone (Mycolog II) cream Topical, 2 times daily terazosin (HYTRIN) 1 mg, Oral, Daily ALLERGIES: Allergies Allergen Reactions Dulaglutide Other Reaction(s): N & V REVIEW OF SYMPTOMS: The ROS was neg. No chest pain or dyspnea. Denies any GI issues. Weight stable. No swellng. Denies any issues with meds. PHYSICAL EXAM: Visit Vitals Pulse (!) 49 Wt 203 lb SpO2 97% BMI 33.27 kg/m Smoking Status Former BSA 2.06 m BP Readings from Last 3 Encounters: 08/31/23 116/58 02/28/23 122/62 11/29/22 140/68 Wt Readings from Last 3 Encounters: 03/01/24 203 lb 08/31/23 183 lb 02/28/23 190 lb Physical exam- No focal neuro signs. No enlarged Lymph Nodes, no thyromegaly/ nodules, HRRR, LCTA, benign ABD exam w/ no bruits. Carotid pulse wnl, no bruits. Pulses intact and palp in all extremities, no edema ASSESSMENT AND PLAN: Assessment/Plan Problem List Items Addressed This Visit Type 2 diabetes mellitus with other specified complication (CMS/HCC) Mixed hyperlipidemia (CMS/HCC) CAD (coronary artery disease) (CMS/HCC) Essential hypertension (CMS/HCC) - Primary MCI (mild cognitive impairment) Obesity due to excess calories MICHAEL on CPAP Other Visit Diagnoses Need for immunization against influenza Relevant Orders Flu vaccine, trivalent, adjuvanted, preservative free He has seen today for a routine check up here is with his . He tells me he thinks his memory isnot as good as he used to be, but it s interesting that he remembers that. Yeah I actually recall alot of events. He is taking at [facility]. I reassured him on maximum dose and he needs to work on other health issues and brain exercise exercises. does not complain that his memories any worse than it has been. Has some right lower extremity weakness intermittently. Good strength today when I need is normal decaf is negative. He doesn t show any sign of tenderness or pain anywhere and he declined physical therapy. He takes Tylenol occasionally. He s had no recent significant falls or injuries, but he s been lightheaded when he gets up and moves And his blood pressure has been between 90 and 100 systolic. I checked it today twice first it was 90/50 and then it was 102/56. I m gonna have him continue the lisinopril 2.5 mg daily, which is the only antihypertensive med he s on. He s takingthis for renal protection dude with diabetes. His A1c is 6.4%. He s on a form and daily. I m going to add primidone 2.5 mg BIDPRN on the days dizzy and lightheaded. I m gonna encourage him to stay hydrated, but we also have to be sure he doesn t have fluid overall.He s taking no diuretic on a regular basis. I m going to scheduling back for a check up here in six months, but he s been told to return to the office in a week or two if he s not improved with the primidone. This note was Dictated and not read. documented in this encounterSt. Luke's [id number] History of Present illness Narrative* Kristofer Ortega MD - 08/01/2023 2:50 PM EDT Subjective Des Jacob is a 82 y.o. male Chief Complaint Follow-up HPI Patient is in the office for follow-up for the problems noted below accompanied by his . He is having progressive dementia. He indicated not using the CPAP machine for no reason and therefore he was advised to continue to use it. His weight is down several pounds from last visit. His lab data from PCP were reviewed and his numbers look on target. He has tendency to fall and education to prevent falls was provided. ASSESSMENT AND PLAN: 1. Two-vessel coronary artery disease, status post angioplasty in 2013. We will continue present medical therapy. 2. Sleep apnea, he is supposed to be on CPAP machine, which he has not used lately. He was encouraged to go back and use it regularly. 3. Hyperlipidemia, LDL on target, continue high intensity statin 4. Diabetes managed by his family physician, on metformin, recent lab data from PCP were reviewed 5. Overweight. Patient lost several pounds since last visit and encouragement provided for more. 6. Recurrent falls due to dizziness and imbalance. There is no indication of hypotension or cardiacarrhythmias., . Education provided to prevent future falls 7. Early dementia with short-term memory loss. Patient is on Aricept managed by PCP. Kristofer Ortega MD, [facility] Review of Systems All other systems reviewed and are negative. Vitals: 08/01/23 1501 BP: 126/62 BP Location: Right arm Patient Position: Sitting Pulse: 58 Weight: 83.9 kg (185 lb) Height: 1.676 m (5' 6 ) Objective Physical Exam Constitutional: Appearance: Normal appearance. HENT: Nose: Nose normal. Neck: Vascular: No carotid bruit. Cardiovascular: Rate and Rhythm: Normal rate. Pulses: Normal pulses. Heart sounds: Normal heart sounds. Pulmonary: Effort: Pulmonary effort is normal. Abdominal: General: Bowel sounds are normal. Palpations: Abdomen is soft. Musculoskeletal: General: Normal range of motion. Cervical back: Normal range of motion. Right lower leg: No edema. Left lower leg: No edema. Skin: General: Skin is warm and dry. Neurological: General: No focal deficit present. Mental Status: He is alert. Psychiatric: Mood and Affect: Mood normal. Behavior: Behavior normal. Thought Content: Thought content normal. Judgment: Judgment normal. Allergies Patient has no known allergies. Current Medications Current Outpatient Medications: aspirin 81 mg EC tablet, Take 1 tablet (81 mg) by mouth once daily., Disp: , Rfl: atorvastatin (Lipitor) 40 mg tablet, Take 1 tablet (40 mg) by mouth once daily at bedtime., Disp: ,Rfl: donepezil (Aricept) 5 mg tablet, Take 2 tablets (10 mg) by mouth once daily at bedtime., Disp: , Rfl: finasteride (Proscar) 5 mg tablet, Take 1 tablet (5 mg) by mouth once daily., Disp: , Rfl: FLUoxetine (PROzac) 40 mg capsule, Take 1 capsule (40 mg) by mouth once daily., Disp: , Rfl: lisinopril 2.5 mg tablet, Take 1 tablet (2.5 mg) by mouth once daily., Disp: , Rfl: metFORMIN (Glucophage) 500 mg tablet, Take 1 tablet (500 mg) by mouth once daily with breakfast., Disp: , Rfl: tadalafil 20 mg tablet, Take 1 tablet (20 mg) by mouth once daily as needed for erectile dysfunction., Disp: , Rfl: terazosin (Hytrin) 1 mg capsule, Take 1 capsule (1 mg) by mouth once daily at bedtime., Disp: , Rfl: Assessment/Plan 1. Atherosclerosis of coronary artery, unspecified vessel or lesion type, unspecified whether angina present, unspecified whether new [place] or transplanted heart Follow Up In Cardiology 2. Status post coronary angioplasty 3. Hyperlipidemia, unspecified hyperlipidemia type 4. Type 2 diabetes mellitus without complication, unspecified whether jail insulin use (Multi) 5. Sleep apnea, unspecified type 6. Former smoker 7. Overweight (BMI 25.0-29.9) 8. At risk for falls Scribe Attestation By signing my name below, Thi Coker LPN, Scribe attest that this documentation has been prepared under the direction and in the presence of Kristofer Ortega MD. Provider Attestation - Scribe documentation All medical record entries made by the Scribe were at my direction and personally dictated by me. Ihvikas reviewed the chart and agree that the record accurately reflects my personal performance of the history, physical exam, discussion and plan. documented in this [facility] Work Phone: [phone]) 261-772105-20-2024 Instructions* Patient Instructions* Thi Smith LPN - 08/01/2023 2:50 PM EDT Please bring all medicines, vitamins, and herbal supplements with you when you come to the office. Prescriptions will not be filled unless you are compliant with your follow up appointments or have a follow up appointment scheduled as per instruction of your physician. Refills should be requested at the time of your visit. Fall Prevention Education Given BMI was above normal measurement. Current weight: 83.9 kg (185 lb) Weight change since last visit (-) denotes wt loss -16 lbs Weight loss needed to achieve BMI 25: 30.4 Lbs Weight loss needed to achieve BMI 30: -0.5 Lbs Provided instructions on dietary changes. 6 months documented in this [facility] Work Phone: 1(684) 272-215308-17-2023 Evaluation note* Encounter Date Diagnosis Assessment Notes Treatment Notes Treatment Clinical Notes Oct, Obstructive sleep apnea (ICD-10 - G47.33) Fortunately, the patient is using and benefiting from treatment. Download was reviewed with patient, Current pressure is controlling apnea well, And we will make no changes at this time. A prescription was sent to the [employer] for new supplies throughout the year. He was encouraged to continue to use his machine nightly, throughout the entire night as this does provide clinical benefit. He will follow-up in the sleep clinic in 1 year or sooner if problems. Oct, Insomnia (ICD-10 - G47.00) Detailed sleep restriction therapy recommendations were reviewed, and the patient expresses good understanding; The patient is advised to adhere to a proper sleep hygiene schedule and to assure adequate total sleep time. The patient is instructed to: Not take naps until the insomnia is controlled; Not be awake in bed for more than 20 minutes; Not use the bed for reading, watching TV, working, or resting if unable to sleep. Pt does take several naps throughout the day with / without machine. I did educate patient that a more consistent sleep schedule can prove more restorative and benefical for optimizing his /her metabolic functions. Oct, BMI 33.0-33.9,adult (ICD-10 - Z68.33) Weight reduction is broadly beneficial but is particularly important for sleep apnea. Strategies for achieving this goal were discussed in detail with specific advice regarding dietary intake and weight control. Reviewed importance of controlling BMI if he is interested in Inspire Therapy, as it needs to be 35 or lower. Oct, Diabetes (ICD-10 - E11.9) Studies have shown that controlling sleep apnea significantly improves glycemic control and insulin resistance, thus allows for better management of diabetes. Encouraged pt to continue to follow with PCP for further mgmt, reinforced medication adherence and lifestyle modifications to control BG. Oct, Other depression (ICD-10 - F32.89) Untreated depression can worsen fatigue and increase the likelihood of insomnia He has not sought any help with this yet. I encouraged patient to discuss this with his PCP. We briefly discussed different treatment options that are available. He does note that he has a good support system and denies any suicidal ideations. Oct, Intolerance of continuous positive airway pressure (CPAP) ventilation (ICD-10 - Z78.9) Pt is curious about Inspire therapy as an alternative option to MICHAEL treatment. We reviewed this intervention in detail discussing the evaluation and pre-procedure process and ongoing care once the device is implanted. Advantages and disadvantages discussed. Patient states he will follow up if he is interested to go this route. Oct, Other Call if any que stions or problems. For Sleep Apnea: Patient is advised to work on healthy diet choices and appropriate servings, weight control, regular exercise as directed, and reduce fat intake. Use machine regularly, and keep up with mask changes as needed. Call if problems with mask toleration, increased sleepiness, or poor response to treatment. Take medication as prescribed, keep follow up appointments, get any testing that's been ordered in a timely fashion. Do not smoke. Taykey Other 11-04-2021 Evaluation note* Encounter Date Diagnosis Assessment Notes Treatment Notes Treatment Clinical Notes Jan, Encounter for immunization (ICD-10 - Z23) Patient presents for COVID-19 vaccination BOOSTER. Pre-screening form answers evaluated with patient. Patient denies current illness or allergic reaction to component of COVID-19 vaccine. Patient provided with current copy of EUA. Taykey Other Consult note Author Prashant Garcia [facility] Note Date/Time May 23, 2024 6:2 5pm [facility] [address] [place] [address] Neurology Consult Note Signed Patient: Des Jacob MR#: [id number] 406 : 1940 Acct:[id number] Age/Sex: 83 / M Adm Date: 5 Loc: 3T Room: [address] [place] [address] Type: ADM INOo Attending Dr: Dread Toney DO Copies to: DO Phani Heller DO Shawn J Warner, DO~ HPI Consult Date: 05/23/24 Cat And Dog Bather: Prashant Garcia DO [facility] Medical History (Updated 05/23/24 @ 16:03 by Elenita Munoz DO) Sleep apnea Uses C-pap Whooping cough as a child Hyperlipemia Insomnia BPH (benign prostatic hyperplasia) Erectile dysfunction Hearing loss Hypertension Coronary artery disease Diabetes Family History (Updated 10/28/22 @ 13:37 by Provider Conversion) Father Heart disease Mother Multiple sclerosis Father Myocardial infarction Heart disease 47 yrs Mother 38 yrs Multiple sclerosis Social History Smoking Status: Former smoker Substance Use Type: None Meds Medications and Allergies Allergies No Known Allergies Allergy (Verified 05/18/24 16:47) Home Medications aspirin 81 mg tablet,delayed release 81 mg PO DAILY 07/10/18 [History Confirmed 05/18/24] atorvastatin 40 mg tablet 1 tab PO DAILY 07/10/18 [History Confirmed 05/18/24] finasteride 5 mg tablet 1 tab PO DAILY 07/10/18 [History Confirmed 05/18/24] fluoxetine 20 mg capsule 1 tab PO DAILY 07/10/18 [History Confirmed 05/18/24] lisinopril 2.5 mg tablet 1 tab PO DAILY 07/10/18 [History Confirmed 05/18/24] metformin 500 mg tablet 1 tab PO BID 07/10/18 [History Confirmed 05/18/24] terazosin 1 mg capsule 1 tab PO DAILY 07/10/18 [History Confirmed 05/18/24] donepezil 10 mg tablet 10 mg PO HS 05/18/24 [History Confirmed 05/18/24] tadalafil 20 mg tablet (Cialis) 20 mg PO DAILY PRN ED 05/18/24 [History Confirmed 05/18/24] Exam Physical Exam Vital Signs: Temp Pulse Resp BP Pulse Ox O2 Del Method 98.1 F 66 18 175/78 H 95 Room Air 05/23/24 17:05 05/23/24 17:05 05/23/24 17:05 05/23/24 17:05 05/23/24 17:05 05/23/24 17:05 Results - Neuro Laboratory Findings 05/23/24 05:10 05/23/24 05:10 Diagnostic Findings Imaging/Impressions: ITS Impressions Chest X-Ray 05/23/24 06:47 IMPRESSION: NO ACUTE FINDINGS Impression dictated by: Shamar Clarke Jr., D.O.05/23/2024 9:03 AM Dictation Location: [place] [address] 05/23/24 08:12 IMPRESSION: NO ACUTE INTRACRANIAL ABNORMALITY. MILD/MODERATE CHRONIC MICROVASCULAR CHANGES AND CENTRAL INVOLUTIONAL CHANGE. Impression dictated by: Romero Guerin M.D.05/23/2024 8:58 AM Dictation Location: [place] [address] Assessment/Plan (1) Recurrent falls: (2) Declining functional status: (3) Tremor: Plan CONSULT REASON: New onset tremors HPI: 83-year-old man. He came to the emergency department earlier today for evaluation with recurrent falls, said to have 6 falls in the past 2 weeks. His family is concerned that he is getting progressively weaker and concern for cognitive issues and overall concerned that he cannot take care of himself. Medical history said to include sleep apnea with CPAP usage (maybe?), hyperlipidemia, insomnia, hypertension, coronary artery disease, diabetes. He was seen here in the emergency department May 18, 2024 with chief complaint of weakness. He feels shaky. Especially when upright. When I talked to him today, he says he feels like his legs can feel weak and shaky when he is upright and he can topple like a sarina. He feels like he falls over due to imbalance as opposed to dropped to the ground from a drop attack. He mentions and shows me that he had shingles up and down his right armapproximating a C5 and C6 dermatome a week or 2 ago. He has numerous bruises and cuts and scrapes. Home medications said to include atorvastatin 40 mg, metformin, terazosin, aspirin 81 mg, fluoxetine, lisinopril, finasteride, donepezil. EXAMINATION: May 18, 2024 he did have some bradycardia in the 50s. No current bradycardia. In no distress. Healing scrapes/lacerations to right side of head, right forehead, right arm, right knee. Scattered bruises on other limbs and portion of body. Bruise on back on the left [facility] down. No significant edema. Normalwork of breathing. As of skin age associated findings. Scattered skin lesions in a right C5 and C6 distribution that he says are resolving shingles hoang. Affect normal. Patient is alert. Attention mildly impaired. Speech is fluent and nondysarthric. Pupils are equal and reactive. Ocular motility is full but he has a mild disconjugate gaze, seems like left exotropia but he switches [id number] with dominant eye, unclear chronicity. A subtle amount of pendular nystagmus with primary gaze. Loss of smooth pursuits. Facial sensation is normal. Hearing is normal. Facial strength is normal. Tongue is midline. Muscle bulk mildly reduced in limbs. Muscle tone feels mostly normal. Some gegenhalten. Some ratcheting movements when checking for cogwheel rigidity in arms. No resting tremors. Mild postural tremors. No bradykinesia,he moves quite rapidly and fluidly and seems sort of jumpy. Reflexes normal throughout. Light touch is normal. Vibratory sensation is diminished in feet. Limbs do not seem ataxic. DATA REVIEW: -CT head nonacute, lots of atrophy but not concerning for NPH ASSESSMENT: Frequent falls due to imbalance. Disconjugate gaze and some nystagmus and loss of smooth pursuits could suggest brainstem/cerebellar process. Some minor sensory loss in his feet that could be partially contributory. Family members reportedly concerned about progressive cognitive decline with concern for dementia. CT imaging does not look consistent with NPH. Overall presentation not very concerning for a parkinsonian disorder. He seemedto have some cogwheeling in bilateral upper extremities. More like gegenhalten than increased tone though. And no resting tremor and no bradykinesia. PLAN: 1. Orthostatic vital signs 2. Checking ammonia level 3. Neuropathy and cognitive lab work: B12, SPEP, immunofixation, RPR, A1c, TSH 4. MRI brain without contrast Documented By: Prashant Garcia DO 05/23/24 7977 Signed By: <Electronically signed by Prashant Garcia DO> 05/23/24 1133 [facility] [employer] Work Phone: Evaluation noteNo assessment information available [facility] Work Phone: Evaluation note* Diagnosis Atherosclerosis of coronary artery, unspecified vessel or lesion type, unspecified whether angina present, unspecified whether new [place] or transplanted heart- Primary Status post coronary angioplasty Postsurgical percutaneous transluminal coronary angioplasty status Hyperlipidemia, unspecified hyperlipidemia type Type 2 diabetes mellitus without complication, unspecified whether jail insulin use (Multi) Sleep apnea, unspecified type Former smoker Personal history of tobacco use, presenting hazards to health Overweight (BMI 25.0-29.9) Overweight At risk for falls Personal history of fall documented in this encounter [facility] Work Phone: Evaluation note* Diagnosis Onset Date Resolution Status Obstructive sleep apnea acut e [facility] Work Phone: Evaluation note* Diagnosis Essential hypertension (CMS/HCC)- Primary Unspecified essential hypertension Type 2 diabetes mellitus with other specified complication, without long-term current use of insulin (CMS/HCC) Mixed hyperlipidemia (CMS/HCC) Mixed hyperlipidemia Coronary artery disease involving [place] heart without angina pectoris, unspecified vessel or lesion type (CMS/HCC) MICHAEL on CPAP MCI (mild cognitive impairment) Mild cognitive impairment, so stated Need for immunization against influenza Need for prophylactic vaccination and inoculation against influenza Class 1 obesity due to excess calories with serious comorbidity and body mass index (BMI) of 32.0 to 32.9 in adult Medication management Hypotension, unspecified hypotension type [facility] Diagnosis Herpes zoster without complication- Primary Seborrheic keratosis, inflamed Seborrheic keratosis Actinic keratosis [facility]* Diagnosis Type 2 diabetes mellitus with other specified complication, without long-term current use of insulin (CMS/HCC)- Primary [facility] Author Dread Toney [facility] Note Date/Time May 23, 2024 3:4 6pm [facility] [address] [place] [address] Hospitalist H&P Signed Patient: Des Jacob MR#: [id number] 406 : 1940 Acct:[id number] Age/Sex: 83 / M Adm Date: 5 Loc: ER Room: Type: REG ER Attending Dr: Copies to: DO Phani Torrez DO Shawn J Warner, DO~ HPI DATE OF EXAMINATION: 05/23/24 CHIEF COMPLAINT: falls HISTORY OF PRESENT ILLNESS: Mr Jacob male with a past medical history of hyperlipidemia, BPH, hypertension, diabetes, and possible dementia who presents hospital today with his family for chief complaint of falls at home. Unfortunately, the patient is alert and oriented by 2, he currently believes he is at home and his son is out on a fluidrun and commit to get him shortly. He is not able to give me any history as faras why he is here, he does endorse having a few falls recently when I ask about the wounds on his head and his arm other than endorsing some falls he cannot tell me anymore. He denies being any pain. There is also no family present at time of evaluation, I did attempt to call the son and the daughter with numbers listed in the computer and there is no answer. On chart review, patient was just here in the emergency room on May 18 for these falls, there was mention of having increased tremors recently which appearto have gotten worse in the past week or 2. Review of Systems Review of Systems Unobtainable due to mental status [facility] Medical History (Updated 05/23/24 @ 15:43 by Dread Toney DO) Sleep apnea Uses C-pap Whooping cough as a child Hyperlipemia Insomnia BPH (benign prostatic hyperplasia) Erectile dysfunction Hearing loss Hypertension Coronary artery disease Diabetes Family History (Updated 10/28/22 @ 13:37 by Provider Conversion) Father Heart disease Mother Multiple sclerosis Father Myocardial infarction Heart disease 47 yrs Mother 38 yrs Multiple sclerosis Social History Smoking Status: Unknown if ever smoked Substance Use Type: None Meds Medications and Allergies Allergies No Known Allergies Allergy (Verified 05/18/24 16:47) Home Medications aspirin 81 mg tablet,delayed release 81 mg PO DAILY 07/10/18 [History Confirmed 05/18/24] atorvastatin 40 mg tablet 1 tab PO DAILY 07/10/18 [History Confirmed 05/18/24] finasteride 5 mg tablet 1 tab PO DAILY 07/10/18 [History Confirmed 05/18/24] fluoxetine 20 mg capsule 1 tab PO DAILY 07/10/18 [History Confirmed 05/18/24] lisinopril 2.5 mg tablet 1 tab PO DAILY 07/10/18 [History Confirmed 05/18/24] metformin 500 mg tablet 1 tab PO BID 07/10/18 [History Confirmed 05/18/24] terazosin 1 mg capsule 1 tab PO DAILY 07/10/18 [History Confirmed 05/18/24] donepezil 10 mg tablet 10 mg PO HS 05/18/24 [History Confirmed 05/18/24] tadalafil 20 mg tablet (Cialis) 20 mg PO DAILY PRN ED 05/18/24 [History Confirmed 05/18/24] Exam Physical Exam Vital Signs: Pulse Resp BP Pulse Ox O2 Del Method 72 20 177/79 H 94 L Room Air 05/23/24 11:00 05/23/24 11:00 05/23/24 11:00 05/23/24 11:05/23/24 11:00 Narrative: General: Awake alert to person and time, he is very pleasant. HEENT: 3cm healing laceration above his right eye, it is scabbed over. No active bleeding or drainage. No surrounding erythema. Neck: supple no masses, no lymphadenopathy CVS: regular rate and rhythm, no murmurs or gallops Respiratory: clear to auscultation bilaterally, no wheezing or crackles, symmetric expansion GI: soft, nondistended, nontender, positive bowel sounds with no organomegaly Extremity: moves all extremities, no restrictions of movements, no calf tenderness, no edema, large 6 cm laceration on his left arm which is scabbed over, no bleeding or surrounding erythema. Numerous small hematomas on his upper extremities. Neuro: AOx2, CN II-VII intact. Moves all extremities in all planes of motion. Skin: dry, intact no rashes or lesions Results - Hospitalist H&P Lab Results Labs: Laboratory Last Values Corrected WBC 8.0 X10E3/uL (4.1-10.5) 05/23/24 05:10 Uncorrected WBC Count 8.0 x10E3/uL (4.1-10.5) 05/23/24 05:10 RBC 4.12 x10E6/uL (3.90-5.60) 05/23/24 05:10 Hgb 12.8 g/dL (13.0-17.0) L 05/23/24 05:10 Hct 38.0 % (38.8-50.0) L 05/23/24 05:10 MCV 92.2 fl (83.5-101) 05/23/24 05:10 MCH 31.1 pg (27.5-35.2) 05/23/24 05:10 MCHC 33.7 g/dL (32.5-35.6) 05/23/24 05:10 RDW 14.2 % (12.0-14.8) 05/23/24 05:10 Plt Count 172 x10E3/uL (150-450) 05/23/24 05:10 MPV 9.7 fl (6.6-10.1) 05/23/24 05:10 Neut % (Auto) 71.3 % (.) 05/23/24 05:10 Lymph % (Auto) 16.5 % (.) 05/23/24 05:10 [place] % (Auto) 9.4 % (.) 05/23/24 05:10 Eos % (Auto) 2.4 % (.) 05/23/24 05:10 Baso % (Auto) 0.4 % (.) 05/23/24 05:10 Nucleat RBC Rel Count 0.0 /100 WBC (0-0.5) 05/23/24 05:10 Neut # (Auto) 5.7 x10E3/uL (1.8-7.7) 05/23/24 05:10 Lymph # (Auto) 1.3 x10E3/uL (1.00-4.8) 05/23/24 05:10 [place] # (Auto) 0.8 x10E3/uL (0.0-0.8) 05/23/24 05:10 Eos # (Auto) 0.2 x10E3/uL (0.0-0.45) 05/23/24 05:10 Baso # (Auto) 0.0 x10E3/uL (0.0-0.2) 05/23/24 05:10 PHA Creatinine Clear 52.16 05/23/24 05:10 Sodium 139 mmol/L (136-145) 05/23/24 05:10 Potassium 4.1 mmol/L (3.5-5.1) 05/23/24 05:10 Chloride 106 mmol/L (98-107) 05/23/24 05:10 Carbon Dioxide 22.5 mmol/L (21.0-31.0) 05/23/24 05:10 Anion Gap 14.6 mEq/L (6.0-15.0) 05/23/24 05:10 BUN 30 mg/dL (7-25) H 05/23/24 05:10 Creatinine 1.17 mg/dL (0.70-1.30) 05/23/24 05:10 Est GFR (CKD-EPI) > 60.0 mL/Min 05/23/24 05:10 Glucose 156 mg/dL (70-100) H 05/23/24 05:10 Calcium 8.9 mg/dL (8.6-10.3) 05/23/24 05:10 Magnesium 1.7 mg/dL (1.9-2.7) L 05/23/24 05:10 Total Bilirubin 1.2 mg/dl (0.3-1.0) H 05/23/24 05:10 AST 19 U/L (13-39) 05/23/24 05:10 ALT 12 U/L (7-52) 05/23/24 05:10 Alkaline Phosphatase 97 U/L (34-104) 05/23/24 05:10 Total Creatine Kinase 114 U/L (30-223) 05/23/24 05:10 Troponin I High Sens 8 ng/L (0-20) 05/23/24 05:10 Total Protein 6.6 gm/dL (6.4-8.9) 05/23/24 05:10 Albumin 3.8 gm/dL (3.5-5.7) 05/23/24 05:10 Globulin 2.8 gm/dL 05/23/24 05:10 Albumin/Globulin Ratio 1.4 05/23/24 05:10 Vitamin B12 263 pg/mL (180-914) 05/23/24 05:10 25-OH Vitamin D Total 20.7 ng/mL (30-100) L 05/23/24 05:10 Folate 11.0 ng/mL (>5.9) 05/23/24 05:10 TSH 3rd Generation 2.77 uIU/mL (0.45-5.33) 05/23/24 05:10 Urine Color Yellow (Yellow) 05/23/24 08:00 Urine Appearance Clear (Clear) 05/23/24 08:00 Urine pH 5.5 (5.0-9.0) 05/23/24 08:00 Ur Specific [place] 1.029 (1.001-1.030) 05/23/24 08:00 Urine Protein 70 mg/dL (Negative) H 05/23/24 08:00 Urine Glucose (UA) 30 mg/dL (Normal) H 05/23/24 08:00 Urine Ketones Trace (Negative) H 05/23/24 08:00 Urine Occult Blood Negative (Negative) 05/23/24 08:00 Urine Nitrite Negative (Negative) 05/23/24 08:00 Urine Bilirubin Negative (Negative) 05/23/24 08:00 Urine Urobilinogen 2 mg/dL (Normal) H 05/23/24 08:00 Ur Leukocyte Esterase Negative (Negative) 05/23/24 08:00 Urine RBC 1-2 /HPF (0-4) 05/23/24 08:00 Urine WBC 1-2 /HPF (0-4) 05/23/24 08:00 Ur Squamous Epith Cells N/A 05/23/24 08:00 Urine Bacteria None seen /HPF (None Seen) 05/23/24 08:00 Cellular Casts 1-2 /LPF (None Seen) H 05/23/24 08:00 Hyaline Casts 0-8 /LPF (0-8) 05/23/24 08:00 Urine Mucus Rare /LPF 05/23/24 08:00 Assessment & Plan Assessment/Plan (1) Tremor: Plan: ? Admit under observation ? Patient has had numerous falls lately with increased tremors ? PT OT consulted ? His BMP was within normal limits, hemoglobin is stable. ? Will check TSH, vitamin D, B12, folic acid the morning ? Will also consult neurology for Parkinson's evaluation to see if he will benefit from Sinemet ? At this point in time we will admit for a basic workup for Parkinson's and other organic causes of weakness to look for reversible causes (2) Weakness: Plan: See above (3) Hypertension: Plan: Continue his home medications Plan ? DVT prophylaxis addressed ? Regular diet ? Full code, I was unable to confirm this as I was not able to contact anyone inhis family. The patient is alert and oriented by 2 and can also not confirm this. This point time will be full code until this can be confirmed at a later point in time. IP vs OBS Justification Based on differential dx, clinical care plan, and risk of adverse events, if untreated, in my clinical judgement this patient requires an acute care setting as: OBSERVATION because of an expectation of an under 2 midnight stay. 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 cataracts 2016 Surgical History angioplasty 2013 Surgical History colonoscopy - normal, but small hemorrhoids 07/2008 Surgical History EGD - small antral ulcer and ga stritis 05/2008 Surgical History CAD s/p angioplasty and stents of LAD in 2000, with diffuse disease in circumflex and right coronary artery of 20-30%, previous angioplasty 1993 2000 Hospitalization History see above [facility] Other Reason for referral (narrative)* Consultation (Routine) - Authorized Specialty Diagnoses / Procedures Referred By Contac t Referred To Contact Cardiology Diagnoses Atherosclerosis of coronary artery, unspecified vessel or lesion type, unspecified whether angina present, unspecified whether new [place] or transplanted heart Procedures Follow Up In Cardiology Kristofer Ortega MD [address] [facility], [address] [address] Kristofer Ortega MD [address] [facility], [address] [place] [address] Referral ID Status Reason Start Date Expiration Date V isits Requested Visits Authorized [id number] Authorized 08/01/2023 07/31/2024 1 1 T [facility] Work Phone: Summary Purpose Family History No Family History Records FoundUnknown Family Member Name Dates Details Family history of arterioscl erotic cardiovascular disease: Father(V17.49, Z82.49) Status:Active Family history of multiple s clerosis: Mother(V17.2, Z82.0) Status:Active Unknown Family Member Name Dates Details Family history of arterioscl erotic cardiovascular disease: Father(V17.49, Z82.49) Status:Active Family history of multiple s clerosis: Mother(V17.2, Z82.0) Status:Active Unknown Family Member Name Dates Details Family history of arterioscl erotic cardiovascular disease: Father(V17.49, Z82.49) Status:Active Family history of multiple s clerosis: Mother(V17.2, Z82.0) Status:Active Relationship Condition Age at Onset Recorded Date/T fabricio father Cardiac disease Unknown Not Specified Multiple sclerosis Unknown Unknown Family Member Name Dates Details Family history of arterioscl erotic cardiovascular disease: Father(V17.49, Z82.49) Status:Active Family history of multiple s clerosis: Mother(V17.2, Z82.0) Status:Active Unknown Family Member Name Dates Details Family history of arterioscl erotic cardiovascular disease: Father(V17.49, Z82.49) Status:Active Family history of multiple s clerosis: Mother(V17.2, Z82.0) Status:Active Relationship Condition Age at Onset Recorded Date/T fabricio father Cardiac disease Unknown Not Specified Multiple sclerosis Unknown father Myocardial infarction Unknown Heart disease Unknown Unknown Not Specified Unknown Multiple sclerosis Unknown Relationship Condition Age at Onset Recorded Date/T fabricio father Cardiac disease Unknown mother Multiple sclerosis Unknown father Myocardial infarction Unknown Heart disease Unknown Unknown mother Unknown Multiple sclerosis Unknown Advance Directives No Advanced Directives Records Found Advance Directive Response Recorded Date/ Time Advance Directives No October 18 5:36pm Advance Directive Response Recorded Date/ Time Advance Directives No October 18 4:36pm Chief Complaint * DES JACOB is being seen for a 6 month follow-up of. * Patient is in the office for follow-up for the problems noted below accompanied by his . He hasoccasional dizziness when he changes position quickly he was advised with avoid quick movements. Hedenies any angina orthopnea PND and no lower extremity edema. He has no side effect of medications.He continued to have ED which is organic and not caused by medications. This is likely caused by his diabetes. His weight remains above target. He was encouraged to do more activities than what he has been doing. He follows with PCP and his labs have been requested from his PCP. * ASSESSMENT AND PLAN: * 1. Two-vessel coronary artery disease, status post angioplasty in 2013. We will continue present medical therapy. Encouraged more lifestyle changes. * 2. Sleep apnea, on CPAP machine, which he is compliant with. * 3. Hyperlipidemia, LDL on target, continue to manage as is * 4. Diabetes managed by his family physician, on metformin, recent lab data from PCP requested * 5. Obesity. Encouraged more weight control with regular exercise and cutting back calorie intakes. * 6. Erectile dysfunction on Cialis which has not been very effective * Kristofer Ortega MD, FACC * Patient is in the office for follow-up for the problems noted below accompanied by his . She isconcerned about his falling down and dizziness. He had no injuries. He denies any syncope. He has no angina and no complaint of palpitations or cardiac arrhythmias. He is compliant with CPAP machine.His weight remains above target. His lab data were reviewed. Examination is remarkable for obesity.He has a visit coming up with his PCP next week. * ASSESSMENT AND PLAN: * 1. Two-vessel coronary artery disease, status post angioplasty in 2013. We will continue present medical therapy. Encouraged more lifestyle changes. * 2. Sleep apnea, on CPAP machine, which he is compliant with. * 3. Hyperlipidemia, LDL on target, continue to manage as is * 4. Diabetes managed by his family physician, on metformin, recent lab data from PCP were reviewed and discussed with the patient * 5. Obesity. Encouraged more weight control with regular exercise and cutting back calorie intakes. * 6. Recurrent falls due to dizziness and imbalance. There is no indication of hypotension or cardiacarrhythmias. Patient has not had carotid scan recently and we will order one. Advised patient and his to discuss this matter with his PCP. * Kristofer Ortega MD, FACC * DES JACOB is being seen for a 6 month follow-up of. * Patient is in the office for follow-up for the problems noted below. He came with his and he tells me that he is having early dementia for which Aricept has been prescribed. Since his last visitwe did a carotid scan to assess his dizziness which came back normal. He lost 10 pounds in the last several months on purpose which is great. He denies any angina and has occasional falls due to imbalance. He has no orthopnea PND or lower extremity edema. His vital signs and cardiopulmonary examination were normal. Lab data from PCP were requested. * ASSESSMENT AND PLAN: * 1. Two-vessel coronary artery disease, status post angioplasty in 2013. We will continue present medical therapy. Encouraged more lifestyle changes. * 2. Sleep apnea, on CPAP machine, which he is compliant with. * 3. Hyperlipidemia, LDL on target, continue to manage as is * 4. Diabetes managed by his family physician, on metformin, recent lab data from PCP were requested * 5. Class I obesity. Patient lost several pounds since last visit and encouragement provided for more. * 6. Recurrent falls due to dizziness and imbalance. There is no indication of hypotension or cardiacarrhythmias., Carotid scan that we did recently that she showed no significant CVD. Education provided to prevent future falls * 7. Early dementia with short-term memory loss. Patient is on Aricept managed by PCP. * Kristofer Ortega MD, [facility] Chief Complaint and Reason for Visit Chief Complaint E11.69 I10 N52.9 N40 .0 E78.5 Z12.5 Chief Complaint E11.69 I10 E78.2 G31 .84 Chief Complaint E78.2 E11.69 I10 Chief Complaint E78.2 E11.69 I10 michael/annual visit Chief Complaint E78.2 E11.69 I10 michael/annual visit z71.89 f33.41 g31.84 e11.69 i10 z00.00 e66.09 z95. Reason for Visit Obstructive sleep ap ruben Chief Complaint Admit Date e11.69 e78.5 i25.10 February 27, 2024 10:28am fall, trouble walking May 18, 2024 4: 40pm Chief Complaint Admit Date e11.69 e78.5 i25.10 February 27, 2024 10:28am fall, trouble walking May 18, 2024 4: 40pm fall May 23, 2024 1:0 0pm Reason for Visit Admit Date Declining functional status May 23, 2024 1:00pm Hypertension May 23, 2024 1:0 0pm Recurrent falls May 23, 2024 1:0 0pm Tremor May 23, 2024 1:0 0pm Weakness May 23, 2024 1:0 0pm Chief Complaint Admit Date fall, trouble walking May 18, 2024 4: 40pm fall May 23, 2024 1:0 0pm fall May 25, 2024 11: 25am Reason for Visit Admit Date Declining functional status May 23, 2024 1:00pm Dementia May 23, 2024 1:0 0pm Hypertension May 23, 2024 1:0 0pm Obstructive sleep apnea May 23, 2024 1:00pm Orthostatic hypotension May 23, 2024 1:00pm Recurrent falls May 23, 2024 1:0 0pm Weakness May 23, 2024 1:0 0pm Tremor May 23, 2024 1:0 0pm Additional Source Comments (unrecognized sect ion and content) No Status Records FoundNo Status Records FoundNo Status Records FoundNo Status Records FoundNo Status Records FoundNo Status Records FoundNo Status Records FoundNo Status Records Found INFORMATION SOURCE (unrecogn ized section and content) DATE CREATED AUTHOR 02/07/2018 [facility] DATE CREATED AUTHOR AUTHOR'S ORGANIZ ATION 05/22/2021 [facility] DATE CREATED AUTHOR AUTHOR'S ORGANIZ ATION 05/28/2022 [facility] DATE CREATED AUTHOR AUTHOR'S ORGANIZ ATION 12/03/2022 [facility] DATE CREATED AUTHOR AUTHOR'S ORGANIZ ATION 12/03/2022 [facility] DATE CREATED AUTHOR AUTHOR'S ORGANIZ ATION 02/26/2024 [facility] DATE CREATED AUTHOR AUTHOR'S ORGANIZ ATION 05/19/2024 [facility] DATE CREATED AUTHOR AUTHOR'S ORGANIZ ATION 06/06/2024 [facility] REASON FOR VISIT (unrecogniz ed section and content) Reason Comments Follow-up 6 month Reason Comments 6 mos. follow up Pt is being seen tod ay for 6 mos follow up and management of chronic conditions. Pt had lab work done in preparations for today's visit , results and recommendations will be reviewed today. Reason Comments Skin Check Care Teams (unrecognized sec tion and content) Team Status: Inactive Member Role Status Dates Phani Ambrocio DO Primary Care Provider, Attending Daphney silva Active Team Status: Active Member Role Status Dates Phani Ambrocio DO Primary Care Provider Active Team Status: Inactive Member Role Status Dates Phani Ambrocio DO Primary Care Provider Active Flavio Lynch RN MSN ANP-C Attending Provider Act chanell [employer] Equipment Test Engineer Relationship Specialty Start Date End Date Phani Ambrocio DO [address] [place] [address] PCP - General 03/14/14 Team Status: Inactive Member Role Status Dates Phani Ambrocio DO Primary Care Provide r, Attending Provider Active Start: August 25, 2023 End: August 25, 2023 Team Status: Inactive Member Role Status Dates Phani Ambrocio DO Primary Care Provider Active Start: October 27, 2023 End: October 27, 2023 Lali Garcia NP Attending Provider Active Start: October 27, 2023 End: October 27, 2023 Team Status: Inactive Member Role Status Dates Phani Ambrocio DO Primary Care Provide r, Attending Provider Active Start: November 16, 2023 End: November 16, 2023 Nuclear Equipment Test Engineer Relationship Specialty Start Date End Date Phani Ambrocio DO [address] [facility] [address] [place] [address] PCP - ACO Reach 08/05/22 Phani Ambrocio DO [address] [facility] [address] [place] [address] PCP - General Internal Medicine 08/26/22 Nuclear Equipment Test Engineer Relationship Specialty Start Date End Date Phani Ambrocio DO [address] [place] [address] PCP - ACO Reach 08/05/22 Phani Ambrocio DO [address] [place] [address] PCP - General Internal Medicine 08/26/22 Nuclear Equipment Test Engineer Relationship Specialty Start Date End Date Phani Ambrocio DO [address] [place] [address] PCP - ACO Reach 08/05/22 Phani Ambrocio DO [address] [place] [address] PCP - General Internal Medicine 08/26/22 Nuclear Equipment Test Engineer Relationship Specialty Start Date End Date Phani Ambrocio DO [address] [place] [address] PCP - ACO Reach 08/05/22 Phani Ambrocio DO [address] [place] [address] PCP - General Internal Medicine 08/26/22 Nuclear Equipment Test Engineer Relationship Specialty Start Date End Date Phani Ambrocio DO [address] [place] [address] PCP - ACO Reach 08/05/22 Phani Ambrocio DO [address] [place] [address] PCP - General Internal Medicine 08/26/22 Team Status: Inactive Member Role Status Dates Phani Ambrocio DO Primary Care Provide r, Attending Provider Active Start: February 27, 2024 End: February 27, 2024 Team Status: Inactive Member Role Status Dates Phani Ambrocio DO Primary Care Provider Active Start: May 18, 2024 End: May 18, 2024 Floyd Moseley MD Emergency Provider Active St art: May 18, 2024 End: May 18, 2024 Team Status: Active Member Role Status Dates Phani Ambrocio DO Primary Care Provider Active Start: May 23, 2024 Elenita Munoz DO Emergency Provider Active Sta rt: May 23, 2024 Dread Toney DO Admit Provider, Attending Provider Active Start: May 23, 2024 Prashant Garcia DO Other Provider Active Start: May 23, 2024 Team Status: Inactive Member Role Status Dates Phani Ambrocio DO Primary Care Provider Active Start: May 23, 2024 End: May 28, 2024 Elenita Munoz DO Emergency Provider Active Sta rt: May 23, 2024 End: May 28, 2024 Dread Toney DO Admit Provider, Atte nding Provider Active Start: May 23, 2024 End: May 28, 2024 Prashant Garcia DO Other Provider Active Start: May 23, 2024 End: May 28, 2024 Tawnya May MD Other Provider Active Start: [facility] 2024 End: May 28, 2024 Shamar Mcclain MD Other Provider Active Start: [facility] 2024 End: May 28, 2024 Gissell Giraldo APRN Other Provider Active St art: May 23, 2024 End: May 28, 2024 German Ngo Jr, DO Other Provider Active S tart: May 23, 2024 End: May 28, 2024 Aubrey Eugene MD Other Provider Active Start: May 23, 2024 End: May 28, 2024 Team Status: Active Member Role Status Dates Phani Ambrocio DO Primary Care Provider Active Start: May 25, 2024 Elenita Munoz DO Emergency Provider Active Sta rt: May 25, 2024 Dread Toney DO Admit Provider, Othe r Provider Active Start: May 25, 2024 Prashant Garcia DO Other Provider Active Start: May 25, 2024 Tawnya May MD Other Provider Active Start: [facility] 2024 Shamar Mcclain MD Attending Provider, Other Provider Active Start: May 25, 2024 Gissell Giraldo APRN Other Provider Active St art: May 25, 2024 Jber L Belcik Jr, DO Other Provider Active S tart: May 25, 2024 Aubrey Eugene MD Other Provider Active Start: May 25, 2024 Nuclear Equipment Test Engineer Relationship Specialty Start Date End Date Ricci Phanigayle Escobar DO [address] [place] [address] PCP - ACO Reach 08/05/22 Phani Ambrocio DO [address] [place] [address] PCP - General Internal Medicine 08/26/22 Sri Aguiar RN Registered Nurse Family Medicine 05/22/24 Goals (unrecognized section and content) Goals may be documented in a n alternate section FOR RECORDS PERTAINING TO PATIENTS WHO ARE OR HAVE BEEN ENROLLED IN A CHEMICAL DEPENDENCY/SUBSTANCEABUSE PROGRAM, SOME INFORMATION MAY BE OMITTED. This clinical summary was aggregated from multiple sources. Caution should be exercised in using it in the provision of clinical care. This summary normalizes information from multiple sources, and as a consequence, information in this document may materially change the coding, format and clinical context of patient data. In addition, data may be omitted in some cases. CLINICAL DECISIONS SHOULD BE BASED ON THE PRIMARY CLINICAL RECORDS. [employer] provides no warranty or guarantee of the accuracy or completeness of information in this document.
[2024-06-20] MEDS: MAGNESIUM SULFATE IN WATER 2 GM/50 ML PREMIX IV (22:16)
--- NOTE | 2024-06-20 22:24 | RESP.RT ---
No PRN breathing tx given. Pt resting. No respiratory distress noted.
[2024-06-21] VITALS (22 sets, daily range): BP systolic 139–185; BP diastolic 63–77; PULSE 66–79; TEMP 36.6–36.9; O2SAT 92–96
[2024-06-21 06:04] LABS: Basophils Percent Auto 0.4 % (0.2-2.0); Eosinophils Absolute Auto 0.1 10^3/uL (0.0-0.7); Eosinophils Percent Auto 0.7 % (0.9-7.0); Hematocrit 32.8 % (42.0-54.0); Hemoglobin 10.9 g/dL (14.0-18.0); Immature Granulocytes Abs Auto 0.03 10^3/uL (0.00-0.03); Immature Granulocytes Pct Auto 0.4 % (0.0-0.5); Lymphocytes Absolute Auto 1.3 10^3/uL (1.2-3.8); Lymphocytes Percent Auto 16.1 % (20.5-60.0); Mean Corpuscular HGB Conc 33.2 g/dL (29.9-35.2); Mean Corpuscular Hemoglobin 30.4 pg (25.9-34.0); Mean Corpuscular Volume 91.6 fL (80.0-94.0); Mean Platelet Volume 10.7 fL (9.5-13.5); Monocytes Percent Auto 11.6 % (1.7-12.0); Neutrophils Absolute Auto 5.8 10^3/uL (1.4-6.5); Neutrophils Percent Auto 70.8 % (43.0-75.0); Platelet Count 248 10^3/uL (150-450); Red Blood Count 3.58 10^6/uL (4.70-6.10); Red Cell Distribution Width 13.6 % (11.0-15.0); White Blood Count 8.2 10^3/uL (4.0-11.0)
[2024-06-21 06:23] LABS: Alanine Aminotransferase 16 U/L (16-63); Albumin Globulin Ratio 0.8; Albumin Level 2.7 g/dL (3.4-5.0); Alkaline Phosphatase 118 U/L (46-116); Anion Gap 14.9; Aspartate Amino Transferase 19 U/L (15-37); BUN Creatinine Ratio 26.9; Bilirubin Total 1.3 mg/dL (0.2-1.0); Calcium 8.3 mg/dL (8.5-10.1); Carbon Dioxide 24.2 mmol/L (21.0-32.0); Chloride 110 mmol/L (98-107); Estimated GFR (African America >60 (>=60 mL/min/1.73m^2); Estimated GFR (Non-African Ame >60 (>=60 mL/min/1.73m^2); Globulin 3.4 g/dL; Glucose 136 mg/dL (74-106); Magnesium 2.2 mg/dL (1.8-2.4); Potassium 4.1 mmol/L (3.5-5.1); Sodium 145 mmol/L (136-145); Total Protein 6.1 g/dL (6.4-8.2)
--- NOTE | 2024-06-21 08:27 | P.HP_ITS ---
HPI H&P: HPI History of Present Illness Chief complaint: fall, LUMBAR FRACTURE, AMS Narrative: Patient is a 83 y.o white male with past medical history of Dementia with psychotic features, Hypertension, HLD, BPH, and Non insulin dept type 2 diabetes who presented to the ER yesterday after having an unwitnessed fall at [facility]. Patient called out in pain and was sent to the ER. He had a bruise to the right elbow and forearm and was complaining of low back pain. CT's of the head, neck, back obtained which showed a new superior endplate fracture of L3 vertebrae. Patient was apparently undressed and lying naked on the ER floor after staff was responding to a Code Blue so CT's were repeated which showed nothing acute other than the mentioned L3 fracture. Per ER notes, ER doctor spoke with Dr. Bethea of ortho and L3 fracture deemed non-operable and symptom control only. Patient was admitted to the hospitalist service for further plan of care. Patient is pleasantly confused on admission exam today. He denies pain. He is A&O x 0. We discussed his labs and fracture finding, I also discussed MRI with him and patient states he does not want to do. ER findings: WBC's 8.2, hb 10.9, plt 248, cr 0.93, BUN 25, lactate 2.7, mag 2.2; CT's all reviewed, X-ray of the elbow and right arm were negative for fracture. I also called and spoke with Gabi and got history on patient. He has been at [facility] for 1 month after a fall that led him to [facility]. His dementia has been progressive. He only walks with a walker with PT about 10 feet but the other times he's in a wheel chair. They have 2 children, Yunier and Criselda. Gabi still resides at home but has alot of health issues herself and the family made a decision after lots of falls at home that it was best he be at [facility]. I have her update on findings of fracture and plan for PT and ortho consult. I also discussed advanced directives with her and she said they both having a living will and He is a DNRCCA. I told her I would update this for the chart both for the fpc and for the hospital incase he were to be admitted again. She was appreciative of phone call and discussion. Opioid HPI Opioid Management Most Recent Pain and Opioid Data: Last Pain Assessment 06/21/24 11:00 Last ORT Total Score 2 06/20/24 21:44 06/20/24 Last ORT Risk Category Low Risk 06/20/24 21:44 06/20/24 Review of Systems ROS Status of ROS unobtainable due to medical condition [facility] Medical History (Updated 06/21/24 @ 12:06 by Diana Birmingham DO) [place] without complications ?B02.9 - [place] without complications (ICD-10) Cognitive communication deficit ?R41.841 - Cognitive communication deficit (ICD-10) Dysphagia ?R13.10 - Dysphagia, unspecified (ICD-10) Tremor ?R25.1 - Tremor, unspecified (ICD-10) Major depressive disorder ?F32.9 - Major depressive disorder, single episode, unspecified (ICD-10) Atherosclerotic heart disease ?I25.10 - Atherosclerotic heart disease of [place] coronary artery without angina pectoris (ICD-10) Male erectile disorder ?N52.9 - Male erectile dysfunction, unspecified (ICD-10) Adjustment insomnia ?F51.02 - Adjustment insomnia (ICD-10) Sleep apnea ?G47.30 - Sleep apnea, unspecified (ICD-10) Dementia ?F03.90 - Unspecified dementia, unspecified severity, without behavioral disturbance, psychotic disturbance, mood disturbance, and anxiety (ICD-10) Type 2 diabetes mellitus ?E11.9 - Type 2 diabetes mellitus without complications (ICD-10) Essential (primary) hypertension ?I10 - Essential (primary) hypertension (ICD-10) BPH (benign prostatic hyperplasia) ?N40.0 - Benign prostatic hyperplasia without lower urinary tract symptoms (ICD-10) Hyperlipidemia ?E78.5 - Hyperlipidemia, unspecified (ICD-10) Difficulty in walking ?R26.2 - Difficulty in walking, not elsewhere classified (ICD-10) Muscle weakness ?M62.81 - Muscle weakness (generalized) (ICD-10) Nutritional deficiency ?E63.9 - Nutritional deficiency, unspecified (ICD-10) Orthostatic hypotension ?I95.1 - Orthostatic hypotension (ICD-10) Social History Highest level of school completed/degree received: don't know Meds Home Medications and Allergies Home Medications ?Medication ?Instructions ?Recorded ?Confirmed ?Type acetaminophen 325 mg tablet 650 mg PO Q6H PRN fever or pain 06/02/24 06/20/24 History amlodipine 2.5 mg tablet (Norvasc) 5 mg PO DAILY 06/02/24 06/20/24 History aspirin 81 mg tablet,delayed 81 mg PO DAILY 06/02/24 06/20/24 History release (Adult Low Dose Aspirin) atorvastatin 40 mg tablet 40 mg PO QPM 06/02/24 06/20/24 History ergocalciferol (vitamin D2) 1,250 1,250 mcg PO QWEEK 06/02/24 06/20/24 History mcg (50,000 unit) capsule finasteride 5 mg tablet 5 mg PO QPM 06/02/24 06/20/24 History fluoxetine 20 mg capsule 20 mg PO DAILY 06/02/24 06/20/24 History melatonin 5 mg tablet 5 mg PO QPM 06/02/24 06/20/24 History memantine 10 mg tablet 10 mg PO DAILY 06/02/24 06/20/24 History metformin 500 mg tablet 500 mg PO BID 06/02/24 06/20/24 History quetiapine 25 mg tablet (Seroquel) 25 mg PO QPM 06/02/24 06/20/24 History Allergies Allergy/AdvReac Type Severity Reaction Status Date / Time No Known Drug Allergies Allergy Verified 06/02/24 12:25 Exam Narrative Exam Narrative: General: Patient is alert, but not oriented to person, place and time Skin: significant hematoma of the right arm that extends just below the shoulder to just below the wrist, including the elbow. Head: atraumatic, acephalic Eyes: PERRLA, no nystagmus present, conjunctiva clear, no scleral icterus Ears: diminished gross auditory acuity Neck: no masses palpated Heart: Normal rate and rhythm, no murmurs/rubs/gallops Lungs: no audible wheezes, crackles and normal breath sounds all lung rashid Abdomen: Normal audible bowel sounds, no distension, No palpable masses, no organomegaly, no rebound/guarding/ or rigidity Musculoskeletal: no swelling bilateral lower extremities, able to raise both legs with 3/5 strength bilaterally Neuro: CN II-X grossly intact, normal sensation upper and lower extremities Constitutional Vital Signs, click to edit/add: Last Vital Signs Temp 98 F 06/21/24 07:26 Pulse 66 06/21/24 07:55 Resp 16 06/21/24 07:26 BP 183/63 H 06/21/24 07:26 Pulse Ox 94 L 06/21/24 07:26 O2 Del Method Room Air 06/21/24 07:26 Results Labs Labs: Short CBC 06/20/24 06/21/24 Range/Units 16:55 05:37 WBC 9.2 8.2 (4.0-11.0) 10^3/uL Hgb 12.6 L 10.9 L (14.0-18.0) g/dL Hct 37.1 L 32.8 L (42.0-54.0) % Plt Count 275 248 (150-450) 10^3/uL BMP 06/20/24 06/21/24 16:55 05:37 Sodium 141 145 Potassium 4.4 4.1 Chloride 107 110 H Carbon Dioxide 24.8 24.2 BUN 32.0 H 25.0 H Creatinine 1.15 0.93 Glucose 177 H 136 H Calcium 8.8 8.3 L Liver Function 06/20/24 06/21/24 Range/Units 16:55 05:37 Total Bilirubin 0.9 1.3 H (0.2-1.0) mg/dL AST 19 19 (15-37) U/L ALT 28 16 (16-63) U/L Alkaline Phosphatase 140 H 118 H (46-116) U/L Albumin 3.0 L 2.7 L (3.4-5.0) g/dL Urine 06/20/24 Range/Units 18:55 Urine Color Yellow (YELLOW) Urine Clarity Clear (CLEAR) Urine pH 6.0 (5.0-9.0) Ur Specific [place] 1.025 (1.005-1.025) Urine Protein 100 A (NEG/TRACE) mg/dL Urine Glucose (UA) Negative (NEGATIVE) mg/dL Assessment and Plan Assessment and Plan (1) Closed lumbar vertebral fracture: Assessment and Plan: PT recommended LSO brace. I have consulted Ortho for help with this, for follow up and any restrictions. Findings seen on CT. Patient will not tolerate MRI, pain control as needed. continue to work with PT/OT. Qualifiers: Encounter type: initial encounter Fracture morphology: unspecified fracture morphology Lumbar vertebra fracture level: L3 Qualified Code(s): S32.039A - Unspecified fracture of third lumbar vertebra, initial encounter for closed fracture (2) Hematoma of right upper extremity: Assessment and Plan: X-ray negative for fracture, avoid blood thinners, will stop aspirin, BAILEE wrap and ice (3) Fall: Assessment and Plan: Patient's advanced dementia, he is currently in nursing facility. Is high fall risk. Qualifiers: Encounter type: initial encounter Qualified Code(s): W19.XXXA - Unspecified fall, initial encounter (4) Dementia: Assessment and Plan: severe dementia. continue memantine, Seroquel Qualifiers: Alzheimer's disease onset: unspecified onset Dementia behavioral or psychological symptom: with other behavioral disturbance Dementia severity: severe Dementia type: Alzheimer's Qualified Code(s): G30.9 - Alzheimer's disease, unspecified; F02.C18 - Dementia in other diseases classified elsewhere, severe, with other behavioral disturbance (5) Type 2 diabetes mellitus: Assessment and Plan: continue metformin. Monitor accuchecks Qualifiers: Diabetes mellitus complication status: without complication Diabetes mellitus correction insulin use: without terminal make up operator use Qualified Code(s): E11.9 - Type 2 diabetes mellitus without complications (6) Essential (primary) hypertension: Assessment and Plan: continue amlodipine, (7) BPH (benign prostatic hyperplasia): Assessment and Plan: continue finasteride Qualifiers: Lower urinary tract symptom presence: unspecified whether lower urinary tract symptoms present Qualified Code(s): N40.0 - Benign prostatic hyperplasia without lower urinary tract symptoms (8) Hyperlipidemia: Assessment and Plan: continue atorvastatin Qualifiers: Hyperlipidemia type: unspecified Qualified Code(s): E78.5 - Hyperlipidemia, unspecified (9) Atherosclerotic heart disease: Assessment and Plan: continue aspirin and statin Qualifiers: Associated angina: without angina Coronary Disease-Associated Artery/Lesion type: [place] artery [place] vs. transplanted heart: [place] heart Qualified Code(s): I25.10 - Atherosclerotic heart disease of [place] coronary artery without angina pectoris Plan Patient is a DNRCCA Patient is in observation status awaiting PT/OT evaluations and Ortho recs.
--- NOTE | 2024-06-21 10:00 | SWNOTE1 ---
Pt is from [facility]. SW has a message out to Kamla at [facility] to see if pt is skilled or night clerk, waiting to hear back.
[2024-06-21] MEDS: METFORMIN HCL 500 MG TABLET PO ×2 (10:14→20:57)
[2024-06-21] MEDS: FLUOXETINE HCL 20 MG CAPSULE PO (10:14)
[2024-06-21] MEDS: MEMANTINE HCL 28 MG CAP XR PO (10:14)
[2024-06-21] MEDS: AMLODIPINE BESYLATE 5 MG TABLET PO (10:15)
[2024-06-21] MEDS: ASPIRIN 81 MG TABLET.DR PO (10:15)
--- NOTE | 2024-06-21 10:24 | SWNOTE1 ---
MAURICIO spoke to Sylvia at [facility]. 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 MAURICIO did let her know that therapy is recommending SNF and SW asked if he could return skilled if that is what pt and family wants? She put SW on hold and came back and did confirm they will/can skilled him. She voiced she will figure out the financial piece. MAURICIO let case management know. MAURICIO to send updates to Jake at [facility].
--- NOTE | 2024-06-21 10:29 | SWNOTE1 ---
MAURICIO did reach out to Micki in billing to confirm pt has Medicare as primary. Micki checking and will reach back out to MAURICIO.
--- NOTE | 2024-06-21 11:30 | CM.NOTE ---
Rounds made with Dr. Yolanda Birmingham. Dr. Birmingham discussed test results and treatment plan. Current plan is to hold off on the lumbar spine MRI, place an Basil wrap to the R upper arm and ice, PT/OT, pain control. No discharge planned at this time.
--- NOTE | 2024-06-21 12:42 | SWNOTE1 ---
MAURICIO faxed updates to Kamla and Sylvia, updates included face sheet, ED note, H&P, labs, vitals, daignostic imaging, DNRCCA order, PT note, and nursing notes. MAURICIO did let them know that pt is staying in observation status. Sylvia at [facility] voiced that she has sent a message out to [facility]. Sylvia let MAURICIO know that someone that has Medicare and is in with [facility] can admit to SNF without 3 day inpt stay. At this time plan is for pt to return to SNF at [facility] at discharge. MAURICIO to call and speak with pt's as well.
--- NOTE | 2024-06-21 13:43 | SWNOTE1 ---
Medicare Outpatient Observation Notice reviewed and discussed with patient's , Gabi, over the phone. Gabi verbalized understanding and SW signed the form that it was reviewed with pt's and no further questions at this time. Original placed in pt's room and copy placed in patient?s chart.
--- NOTE | 2024-06-21 13:44 | SWNOTE1 ---
MAURICIO called and spoke to pt's , Gabi. Pt has Dementia. Gabi voiced that the plan is for pt to return to [facility]. She is happy with his care there. MAURICIO also let Gabi know that physical therapy did recommend more therapy at [facility] once he is ready for discharge. SW let her know that SW spoke to Sylvia at [facility] and they are able to do this. Gabi would like him to get more therapy since he had this fall and fracture. At this time she has no other concerns.4
--- NOTE | 2024-06-21 17:58 | PC.NURSE ---
this rn removed two tegaderms from the patients left arm and hand. Fresh skin tear noted to left forearm, telfa with bandage placed. Scabbing noted underneath tegaderm on left hand. Left this one open to air
--- NOTE | 2024-06-21 18:00 | PC.NURSE ---
abdullahi with ortho at patients bedside for recommendations
--- NOTE | 2024-06-21 18:10 | PM.ORCN ---
History of Present Illness HPI Consult date: 06/21/24 Requesting physician: Diana Birmingham Chief complaint: fall, LUMBAR FRACTURE, AMS Narrative: Patient is an 83-year-old male with a past medical history of dementia who lives at the [facility] that had presented to the ED earlier today after the [facility] had called EMS after he sustained an unwitnessed fall. He was also seen in the ER on 06/02 for a fall with a head strike. CT imaging of the lumbar spine was completed as he was complaining of low back pain at some point. Patient pleasant on exam but A&O x 1 to name. He does follow commands. He denies any pain at this time. He does remember a fall where he did hit his head and rubs his head. Patient moves all extremities equally and without pain. [facility] Medical History (Updated 06/21/24 @ 12:06 by Diana Birmingham, DO) [place] without complications ?B02.9 - [place] without complications (ICD-10) Cognitive communication deficit ?R41.841 - Cognitive communication deficit (ICD-10) Dysphagia ?R13.10 - Dysphagia, unspecified (ICD-10) Tremor ?R25.1 - Tremor, unspecified (ICD-10) Major depressive disorder ?F32.9 - Major depressive disorder, single episode, unspecified (ICD-10) Atherosclerotic heart disease ?I25.10 - Atherosclerotic heart disease of [place] coronary artery without angina pectoris (ICD-10) Male erectile disorder ?N52.9 - Male erectile dysfunction, unspecified (ICD-10) Adjustment insomnia ?F51.02 - Adjustment insomnia (ICD-10) Sleep apnea ?G47.30 - Sleep apnea, unspecified (ICD-10) Dementia ?F03.90 - Unspecified dementia, unspecified severity, without behavioral disturbance, psychotic disturbance, mood disturbance, and anxiety (ICD-10) Type 2 diabetes mellitus ?E11.9 - Type 2 diabetes mellitus without complications (ICD-10) Essential (primary) hypertension ?I10 - Essential (primary) hypertension (ICD-10) BPH (benign prostatic hyperplasia) ?N40.0 - Benign prostatic hyperplasia without lower urinary tract symptoms (ICD-10) Hyperlipidemia ?E78.5 - Hyperlipidemia, unspecified (ICD-10) Difficulty in walking ?R26.2 - Difficulty in walking, not elsewhere classified (ICD-10) Muscle weakness ?M62.81 - Muscle weakness (generalized) (ICD-10) Nutritional deficiency ?E63.9 - Nutritional deficiency, unspecified (ICD-10) Orthostatic hypotension ?I95.1 - Orthostatic hypotension (ICD-10) Social History Highest level of school completed/degree received: don't know Meds Home Medications and Allergies Home Medications ?Medication ?Instructions ?Recorded ?Confirmed ?Type acetaminophen 325 mg tablet 650 mg PO Q6H PRN fever or pain 06/02/24 06/20/24 History amlodipine 2.5 mg tablet (Norvasc) 5 mg PO DAILY 06/02/24 06/20/24 History aspirin 81 mg tablet,delayed 81 mg PO DAILY 06/02/24 06/20/24 History release (Adult Low Dose Aspirin) atorvastatin 40 mg tablet 40 mg PO QPM 06/02/24 06/20/24 History ergocalciferol (vitamin D2) 1,250 1,250 mcg PO QWEEK 06/02/24 06/20/24 History mcg (50,000 unit) capsule finasteride 5 mg tablet 5 mg PO QPM 06/02/24 06/20/24 History fluoxetine 20 mg capsule 20 mg PO DAILY 06/02/24 06/20/24 History melatonin 5 mg tablet 5 mg PO QPM 06/02/24 06/20/24 History memantine 10 mg tablet 10 mg PO DAILY 06/02/24 06/20/24 History metformin 500 mg tablet 500 mg PO BID 06/02/24 06/20/24 History quetiapine 25 mg tablet (Seroquel) 25 mg PO QPM 06/02/24 06/20/24 History Allergies Allergy/AdvReac Type Severity Reaction Status Date / Time No Known Drug Allergies Allergy Verified 06/02/24 12:25 Exam Narrative Exam Narrative: Exam patient is laying in the hospital bed alert but only oriented to self. He is in no distress. He follows all commands. There is ecchymosis medially to the right upper arm and forearm and an abrasion on the right side of his forehead but otherwise no signs of trauma. Skin on the back is intact, no signs of trauma, no ecchymosis, no warmth to touch. C/T/L-spine nontender with palpation. 5/5 strength bilateral lower extremities. 2+ DP pulses palpated. Sensation is intact distally with light touch. Constitutional Vital Signs, click to edit/add: Last Vital Signs Temp 98.1 F 06/21/24 14:07 Pulse 72 06/21/24 17:39 Resp 18 06/21/24 14:07 BP 147/69 H 06/21/24 14:07 Pulse Ox 92 L 06/21/24 14:07 O2 Del Method Room Air 06/21/24 14:07 Results Labs Labs: Abnormal lab results 06/20/24 06/20/24 06/21/24 Range/Units 18:55 19:30 05:37 RBC 3.58 L (4.70-6.10) 10^6/uL Hgb 10.9 L (14.0-18.0) g/dL Hct 32.8 L (42.0-54.0) % Lymph % (Auto) 16.1 L (20.5-60.0) % Eos % (Auto) 0.7 L (0.9-7.0) % [place] # (Auto) 1.0 H (0.3-0.8) 10^3/uL Chloride 110 H (98-107) mmol/L BUN 25.0 H (7.0-18.0) mg/dL Glucose 136 H (74-106) mg/dL Lactate 2.7 H* (0.4-2.0) mmol/L Calcium 8.3 L (8.5-10.1) mg/dL Total Bilirubin 1.3 H (0.2-1.0) mg/dL Alkaline Phosphatase 118 H (46-116) U/L Total Protein 6.1 L (6.4-8.2) g/dL Albumin 2.7 L (3.4-5.0) g/dL Urine Protein 100 A (NEG/TRACE) mg/dL Urine WBC 0-2 A (NONE SEEN) #/HPF Urine Bacteria Trace A (NONE SEEN) #/HPF Urine Mucus Moderate A (NONE SEEN) H & H 06/20/24 06/21/24 Range/Units 16:55 05:37 Hgb 12.6 L 10.9 L (14.0-18.0) g/dL Hct 37.1 L 32.8 L (42.0-54.0) % Coagulation 06/20/24 Range/Units 16:55 INR 1.02 All other labs normal. Assessment and Plan Assessment and Plan (1) Closed lumbar vertebral fracture: Assessment and Plan: Minimal L3 compression fracture of the superior endplate - CT lumbar spine without contrast was reviewed by myself and patient is noted to have a superior endplate fracture of L3 without significant loss of height, no retropulsion. - BLE are neuro intact - Will treat this nonoperatively, this could represent an old fracture as patient has had previous falls, no previous imaging available to compare. Patient is nontender on exam but is somewhat an unreliable historian secondary to his dementia - Recommend an LSO brace x 6 weeks, limit bending/lifting greater than 10 pounds/twisting - LSO can be obtained from [facility] [place], wear when out of bed - Patient can ambulate as tolerated - PT eval - Can follow up outpatient with Dr Wise in 4-6 weeks. Plan discussed with and agreed upon by my Supervising Physician, Dr Wise. Qualifiers: Encounter type: initial encounter Fracture morphology: unspecified fracture morphology Lumbar vertebra fracture level: L3 Qualified Code(s): S32.039A - Unspecified fracture of third lumbar vertebra, initial encounter for closed fracture (2) Hematoma of right upper extremity: (3) Fall: Qualifiers: Encounter type: initial encounter Qualified Code(s): W19.XXXA - Unspecified fall, initial encounter (4) Dementia: Qualifiers: Dementia type: Alzheimer's Alzheimer's disease onset: unspecified onset Dementia severity: severe Dementia behavioral or psychological symptom: with other behavioral disturbance Qualified Code(s): G30.9 - Alzheimer's disease, unspecified; F02.C18 - Dementia in other diseases classified elsewhere, severe, with other behavioral disturbance (5) Type 2 diabetes mellitus: Qualifiers: Diabetes mellitus emt intermediate insulin use: without emt intermediate use Diabetes mellitus complication status: without complication Qualified Code(s): E11.9 - Type 2 diabetes mellitus without complications (6) Essential (primary) hypertension: (7) BPH (benign prostatic hyperplasia): Qualifiers: Lower urinary tract symptom presence: unspecified whether lower urinary tract symptoms present Qualified Code(s): N40.0 - Benign prostatic hyperplasia without lower urinary tract symptoms (8) Hyperlipidemia: Qualifiers: Hyperlipidemia type: unspecified Qualified Code(s): E78.5 - Hyperlipidemia, unspecified (9) Atherosclerotic heart disease: Qualifiers: Coronary Disease-Associated Artery/Lesion type: [place] artery [place] vs. transplanted heart: [place] heart Associated angina: without angina Qualified Code(s): I25.10 - Atherosclerotic heart disease of [place] coronary artery without angina pectoris
[2024-06-21] MEDS: FINASTERIDE 5 MG TABLET PO (20:57)
[2024-06-21] MEDS: ATORVASTATIN CALCIUM 40 MG TABLET PO (20:57)
[2024-06-21] MEDS: QUETIAPINE FUMARATE 25 MG TABLET PO (20:57)
[2024-06-21] MEDS: ACETAMINOPHEN 325 MG TABLET 650 MG PO (21:58)
[2024-06-22] VITALS (11 sets, daily range): BP systolic 143–159; BP diastolic 72–78; PULSE 60–95; TEMP 36.3–37.1; O2SAT 94–97
[2024-06-22 06:17] LABS: Basophils Percent Auto 0.4 % (0.2-2.0); Eosinophils Absolute Auto 0.1 10^3/uL (0.0-0.7); Eosinophils Percent Auto 1.6 % (0.9-7.0); Hematocrit 32.6 % (42.0-54.0); Hemoglobin 10.6 g/dL (14.0-18.0); Immature Granulocytes Abs Auto 0.03 10^3/uL (0.00-0.03); Immature Granulocytes Pct Auto 0.4 % (0.0-0.5); Lymphocytes Absolute Auto 1.8 10^3/uL (1.2-3.8); Lymphocytes Percent Auto 21.6 % (20.5-60.0); Mean Corpuscular HGB Conc 32.5 g/dL (29.9-35.2); Mean Corpuscular Hemoglobin 30.3 pg (25.9-34.0); Mean Corpuscular Volume 93.1 fL (80.0-94.0); Mean Platelet Volume 10.8 fL (9.5-13.5); Monocytes Absolute Auto 0.9 10^3/uL (0.3-0.8); Monocytes Percent Auto 10.9 % (1.7-12.0); Neutrophils Absolute Auto 5.4 10^3/uL (1.4-6.5); Neutrophils Percent Auto 65.1 % (43.0-75.0); Platelet Count 233 10^3/uL (150-450); Red Cell Distribution Width 13.9 % (11.0-15.0); White Blood Count 8.3 10^3/uL (4.0-11.0)
[2024-06-22 06:53] LABS: Alanine Aminotransferase 17 U/L (16-63); Albumin Globulin Ratio 0.8; Albumin Level 2.5 g/dL (3.4-5.0); Alkaline Phosphatase 110 U/L (46-116); Anion Gap 11.3; Aspartate Amino Transferase 19 U/L (15-37); BUN Creatinine Ratio 24.5; Bilirubin Total 1.1 mg/dL (0.2-1.0); Calcium 7.9 mg/dL (8.5-10.1); Carbon Dioxide 24.7 mmol/L (21.0-32.0); Chloride 111 mmol/L (98-107); Estimated GFR (African America >60 (>=60 mL/min/1.73m^2); Estimated GFR (Non-African Ame >60 (>=60 mL/min/1.73m^2); Globulin 3.2 g/dL; Glucose 121 mg/dL (74-106); Sodium 143 mmol/L (136-145); Total Protein 5.7 g/dL (6.4-8.2)
--- NOTE | 2024-06-22 07:56 | PM.DS1 ---
DS: Providers Provider Date of admission: 06/20/24 21:15 Primary care physician: ADEOLA CERON Consults: 06/20/24 19:45 Occupational Therapy Eval and Treat Routine Reason for consultation: fall at home Has provider been notified: No Physical Therapy Eval and Treat Routine Reason for consultation: fall at home Has provider been notified: No 06/21/24 11:39 Consult to Orthopedics Routine Consulting Provider: Jasmyne Jonas Reason for consultation: L3 fracture, for brace, follow up, and any restrictions Has provider been notified: No DS: Diagnosis Discharge Diagnosis (1) Closed lumbar vertebral fracture: Qualifiers: Encounter type: initial encounter Fracture morphology: unspecified fracture morphology Lumbar vertebra fracture level: L3 Qualified Code(s): S32.039A - Unspecified fracture of third lumbar vertebra, initial encounter for closed fracture (2) Hematoma of right upper extremity: (3) Fall: Qualifiers: Encounter type: initial encounter Qualified Code(s): W19.XXXA - Unspecified fall, initial encounter (4) Dementia: Qualifiers: Alzheimer's disease onset: unspecified onset Dementia behavioral or psychological symptom: with other behavioral disturbance Dementia severity: severe Dementia type: Alzheimer's Qualified Code(s): G30.9 - Alzheimer's disease, unspecified; F02.C18 - Dementia in other diseases classified elsewhere, severe, with other behavioral disturbance (5) Type 2 diabetes mellitus: Qualifiers: Diabetes mellitus complication status: without complication Diabetes mellitus termite control servicer insulin use: without termite control servicer use Qualified Code(s): E11.9 - Type 2 diabetes mellitus without complications (6) Essential (primary) hypertension: (7) BPH (benign prostatic hyperplasia): Qualifiers: Lower urinary tract symptom presence: unspecified whether lower urinary tract symptoms present Qualified Code(s): N40.0 - Benign prostatic hyperplasia without lower urinary tract symptoms (8) Hyperlipidemia: Qualifiers: Hyperlipidemia type: unspecified Qualified Code(s): E78.5 - Hyperlipidemia, unspecified (9) Atherosclerotic heart disease: Qualifiers: Associated angina: without angina Coronary Disease-Associated Artery/Lesion type: [place] artery [place] vs. transplanted heart: [place] heart Qualified Code(s): I25.10 - Atherosclerotic heart disease of [place] coronary artery without angina pectoris DS: Summary Hospital Course Hospital Course: Patient is a 83 y.o white male with past medical history of Dementia with psychotic features, Hypertension, HLD, BPH, and Non insulin dept type 2 diabetes who presented to the ER after having an unwitnessed fall at [facility]. Patient called out in pain and was sent to the ER. He had a bruise to the right elbow and forearm and was complaining of low back pain. CT's of the head, neck, back obtained which showed a new superior endplate fracture of L3 vertebrae. Patient was apparently undressed and lying naked on the ER floor after staff was responding to a Code Blue so CT's were repeated which showed nothing acute other than the mentioned L3 fracture. Per ER notes, ER doctor spoke with Dr. Bethea of ortho and L3 fracture deemed non-operable and symptom control only. Patient was admitted to the hospitalist service for further plan of care. Patient is pleasantly confused on admission exam today. He denies pain. He is A&O x 0. We discussed his labs and fracture finding, I also discussed MRI with him and patient states he does not want to do. ER findings: WBC's 8.2, hb 10.9, plt 248, cr 0.93, BUN 25, lactate 2.7, mag 2.2; CT's all reviewed, X-ray of the elbow and right arm were negative for fracture. I also called and spoke with Gabi and got history on patient. He has been at [facility] for 1 month after a fall that led him to [facility]. His dementia has been progressive. He only walks with a walker with PT about 10 feet but the other times he's in a wheel chair. They have 2 children, Yunier and Criselda. Gabi still resides at home but has alot of health issues herself and the family made a decision after lots of falls at home that it was best he be at [facility]. I have her update on findings of fracture and plan for PT and ortho consult. I also discussed advanced directives with her and she said they both having a living will and He is a DNRCCA. I told her I would update this for the chart both for the assisted and for the hospital incase he were to be admitted again. She was appreciative of phone call and discussion. Today patient is resting comfortably in Chair. Ortho PA did come and evaluate patient on 06/21/24, recommendations were: Recommend an LSO brace x 6 weeks, limit bending/lifting greater than 10 pounds/twisting, LSO can be obtained from [facility] [place], wear when out of bed; Patient can ambulate as tolerated; Can follow up outpatient with Dr Wise in 4-6 weeks. Patient has been doing well with PT. He did have some urinary retention >500 cc yesterday so a moya catheter was placed, that was removed today and patient did urinate. His pain has been controlled with Tylenol only. CBC and CMP stable. Vitals stable. He still has hematoma on the right arm. I have held his aspirin for 5 more days. He will have close ortho follow up and [facility] will take him to be fitted for his LSO brace. Rx was written and on the chart. He may return to the ER with any worsening signs or symptoms. Status at Discharge Functional status at discharge: uses cane/walker Overall status at discharge: patient is back to baseline Time Spent with Patient Time attestation: Total time spent providing and/or coordinating discharge services: Time spent: greater than 30 minutes Exam Narrative Exam Narrative: General: Patient is alert, but not oriented to person, place and time Skin: significant hematoma of the right arm that extends just below the shoulder to just below the wrist, including the elbow. Head: atraumatic, acephalic Eyes: PERRLA, no nystagmus present, conjunctiva clear, no scleral icterus Ears: diminished gross auditory acuity Neck: no masses palpated Heart: Normal rate and rhythm, no murmurs/rubs/gallops Lungs: no audible wheezes, crackles and normal breath sounds all lung rashid Abdomen: Normal audible bowel sounds, no distension, No palpable masses, no organomegaly, no rebound/guarding/ or rigidity Musculoskeletal: no swelling bilateral lower extremities, able to raise both legs with 4/5 strength bilaterally Neuro: CN II-X grossly intact, normal sensation upper and lower extremities Constitutional Vital Signs, click to edit/add: Last Vital Signs Temp 97.3 F L 06/22/24 05:01 Pulse 71 06/22/24 07:47 Resp 18 06/22/24 05:01 BP 144/78 H 06/22/24 05:01 Pulse Ox 92 L 06/21/24 22:00 O2 Del Method Room Air 06/21/24 22:00 DS: Data Data Completed and Pending Labs on day of discharge: Labs from last 24 hours 06/22/24 05:32 WBC 8.3 RBC 3.50 L Hgb 10.6 L Hct 32.6 L MCV 93.1 MCH 30.3 MCHC 32.5 RDW 13.9 Plt Count 233 MPV 10.8 Neut % (Auto) 65.1 Lymph % (Auto) 21.6 [place] % (Auto) 10.9 Eos % (Auto) 1.6 Baso % (Auto) 0.4 Neut # (Auto) 5.4 Lymph # (Auto) 1.8 [place] # (Auto) 0.9 H Eos # (Auto) 0.1 Baso # (Auto) 0.0 Abs Immat Gran (auto) 0.03 Imm/Tot Granulo (auto) 0.4 Sodium 143 Potassium 4.0 Chloride 111 H Carbon Dioxide 24.7 Anion Gap 11.3 BUN 25.0 H Creatinine 1.02 Est GFR ( Amer) >60 Est GFR (Non-Af Amer) >60 BUN/Creatinine Ratio 24.5 Glucose 121 H Calcium 7.9 L Total Bilirubin 1.1 H AST 19 ALT 17 Alkaline Phosphatase 110 Total Protein 5.7 L Albumin 2.5 L Globulin 3.2 Albumin/Globulin Ratio 0.8 Discharge Plan Discharge Disposition: Xfer SNF Condition: Good Discharge Medications: Continued acetaminophen 325 mg tablet 650 mg PO Q6H PRN (Reason: fever or pain) atorvastatin 40 mg tablet 40 mg PO QPM ergocalciferol (vitamin D2) 1,250 mcg (50,000 unit) capsule 1,250 mcg PO QWEEK finasteride 5 mg tablet 5 mg PO QPM fluoxetine 20 mg capsule 20 mg PO DAILY melatonin 5 mg tablet 5 mg PO QPM memantine 10 mg tablet 10 mg PO DAILY metformin 500 mg tablet 500 mg PO BID amlodipine [Norvasc] 2.5 mg tablet 5 mg PO DAILY quetiapine [Seroquel] 25 mg tablet 25 mg PO QPM Held aspirin [Adult Low Dose Aspirin] 81 mg tablet,delayed release (DR/EC) 81 mg PO DAILY Hold Instructions: Resume on 06/27/24. Print Language: Prydein[place] Activity Restrictions/Additional Instructions: Recommend an LSO brace x 6 weeks, limit bending/lifting greater than 10 pounds/twisting - LSO can be obtained from [facility] [place], wear when out of bed - Patient can ambulate as tolerated - Can follow up outpatient with Dr Wise in 4-6 weeks. Forms: Portal Instructions Follow Up Appointments: Dr. Wise 4-6 weeks Discharge location: To [facility]
[2024-06-22] MEDS: FLUOXETINE HCL 20 MG CAPSULE PO (08:58)
[2024-06-22] MEDS: MEMANTINE HCL 28 MG CAP XR PO (09:02)
[2024-06-22] MEDS: METFORMIN HCL 500 MG TABLET PO (09:02)
[2024-06-22] MEDS: AMLODIPINE BESYLATE 5 MG TABLET PO (09:02)
--- NOTE | 2024-06-22 09:13 | SWNOTE1 ---
MAURICIO reached out to Kamla at [facility] to see if anyone comes to fit pt's for LSO braces? She did email back and they do not have anyone that comes to facility to fit people for LSO braces, but she can get pt to [facility] if needed for fitting. In ortho recommendations there is recommendation for LSO brace. MAURICIO checked chart for prescription for brace, no script. SW let nurse know. Nurse called the PA for ortho and she stated she did not leave script. MAURICIO and nurse let the PA know that hospitalist had figured ortho was writing script. The PA will get ahold of hospitalist to figure out script for LSO brace.
--- NOTE | 2024-06-22 10:56 | PC.NURSE ---
350ml of bright red urine obtained from standard drainage bag after catheter removal
--- NOTE | 2024-06-22 11:20 | PT.DAILY ---
Physical Therapy Daily Note PT Daily Note/Assess Start: 06/22/24 11:16 Freq: Status: Active Protocol: Document 06/22/24 10:45 ROSALBA (Rec: 06/22/24 11:20 ROSALBA [id number]) Physical Therapy Daily Note/Assessment Time In/Time Out Time In 10:47 Time Out 11:56 Subjective Subjective Patient feeling okay today, agreeable to seated exercises and reports that he wants to move. Therapeutic Exercise Time Therapeutic Exercise 9 Minutes (minutes) Therapeutic Exercise 1 Units Therapeutic Exercise Treatment Therapeutic Exercise Seated Exercises: Treatment Marches x 10 LAQ x 10 HR/TR x 10 Hip abd x 10 Add squeezes x10 Total Physical Therapy Time Total Therapy 9 Minutes Total Physical 1 Therapy Units Summary Daily Note Summary Patient able to complete seated exercises without reporting discomfort or pain. Patient requiring frequent verbal cues to continue doing exercises. Sit to stand MIN A to reposition patient. Patient in chair with call light in reach and all needs met post treatment.
--- NOTE | 2024-06-22 11:46 | CM.NOTE ---
Rounds made with Dr. Birmingham, pt will discharge to [facility] today. Awaiting script for LSO brace. Pt will f/u with Dr. Rhodes 4-6 weeks.
--- NOTE | 2024-06-22 12:25 | SWNOTE1 ---
MAURICIO spoke to doctor and Dr. Bethea is supposed to be coming back to write script for LSO brace, if not Dr. Birmingham will write script. MAURICIO did ask Kamla at [facility] if Dr. Frias would be willing to write script, she stated he would not. Kamla did request we fax script to [facility]. SW to fax once received.
--- NOTE | 2024-06-22 12:31 | SWNOTE1 ---
Pt is medically stable for discharge. Pt is returning to [facility] skilled. MAURICIO faxed over ca med rec. MAURICIO called and set up stretcher transportation with [facility] for 2:45pm. MAURICIO filled out [place] paperwork. Nurse and [facility] updated with time. MAURICIO called Gabi, no answer.
--- NOTE | 2024-06-22 12:46 | SWNOTE1 ---
SW called pt's , no answer. SW called pt's daughter, no answer but SW left message.
--- NOTE | 2024-06-22 14:46 | SWNOTE1 ---
jordan Medley, wrote script for LSO bracarey. MAURICIO faxed her note and script to [facility]. MAURICIO sent script with pt to [facility].
== END 2024-06-22 14:57 ==
LOC: ER 21:05 → MS 21:21
PROVIDERS: Physician Assistant; Registered Nurse; Admitting Provider Family Medicine; Emergency Provider Emergency Medicine; PCP Family Medicine; Visit Provider Family Medicine
DX: S32.039A Unspecified fracture of third lumbar vertebra, initial encounter for closed fracture (principal); R41.82 Altered mental status, unspecified; I10 Essential (primary) hypertension; E78.5 Hyperlipidemia, unspecified; N40.0 Benign prostatic hyperplasia without lower urinary tract symptoms; E11.9 Type 2 diabetes mellitus without complications; S50.11XA Contusion of right forearm, initial encounter; W19.XXXA Unspecified fall, initial encounter; Z66 Do not resuscitate; Z79.84 Long term (current) use of oral hypoglycemic drugs; G30.9 Alzheimer's disease, unspecified; F02.C18 Dementia in other diseases classified elsewhere, severe, with other behavioral disturbance; I25.10 Atherosclerotic heart disease of native coronary artery without angina pectoris; S00.81XA Abrasion of other part of head, initial encounter; R33.9 Retention of urine, unspecified
CPT/HCPCS: 36415; 51702; 51798; 70450; 71260; 72125; 72131; 73080; 73090; 74177; 80053; 81001; 83605; 83735; 84443; 84484; 85025; 85610; 93005; 94761; 96361; 96365; 97110; 97161; 97165; 97530; 97535; 99285; G0378; J3475; Q9967

== ENCOUNTER 2024-06-26 01:34 | Outpatient (REF) | payer MEDICARE, BC, SELFPAY ==
--- OUTSIDE RECORDS SUMMARY | 2024-06-26 01:41 | XMS_ITS | CCD ---
Author Organization [facility] CliniSyfl Care Team Providers Care Repairer Veneer Sheet Name Role Phone KRISTOFER ORTEGA Unavailable Unavailable GABRIELA JOHNSON Unavailable Unavailable Phani Ambrocio Unavailable Unavailable Unavailable Teresa Martinez Unavailable DO Phani Ambrocio Primary Care Provider [phone] DO Phani Ambrocio Attending Provider Dr. Phani Ambrocio Primary Care Kristofer Petersen Attending Unavailable Lali Garcia Unavailable Kristofer Ortega Attending Unavailable Kristofer Ortega Referring Unavailable Dr. Phani Ambrocio Primary Care Kristofer Petersen Attending Unavailable Kristofer Ortega Referring Unavailable Dr. Phani Ambrocio Primary Care DO Phani Julian Primary Care Provider SEDA Lynch Attending Provider Phani Ambrocio DO Primary Care Provider DO Phani Ambrocio Primary Care Provider [phone] DO Phani Ambrocio Attending Provider [phone] KRISTOFER ORTEGA Attending Unavailable PHANI AMBROCIO Primary Care Unavailable KRISTOFER ORTEGA Attending Unavailable PHANI AMBROCIO Primary Care Unavailable KRISTOFER ORTEGA Referring Unavailable Phani Ambrocio DO Unavailable Phani Ambrocio DO Primary Care Provider CHECO BAEZA Attending Unavailable PHANI AMBROCIO Attending Unavailable PHANI AMBROCIO Attending Unavailable PHANI AMBROCIO Referring Unavailable Phani Ambrocio DO Primary Care Provider [phone] Phani Ambrocio DO Attending Provider Pradip SMITH, Floyd Emergency Provider Alexander DO Elenita Emergency Provider Dread Toney DO Admit Provider [phone] Dread Toney DO Attending Provider Prashant Garcia DO Other Provider Phani Ambrocio DO Primary Care Provider [phone] Lalo SMITH, Tawnya Other Provider Johny SMITH, Shamar Other Provider Gissell Giraldo APRN Other Provider [phone] German Ngo DO Other Provider Aubrey Eugene MD Other Provider [phone] [facility] Unavailable Unavailable Phani Ambrocio Primary [...] mellitus with other specified complication, unspecified whether adjunct faculty for medical terminology insulin use (CMS/HCC) Test daily before all meals/snacks and once before bedtime. 1 each 12/10/2022 Active memantine hydrochloride 10 mg oral tablet (18 sources) N-cgxyrs-P-aspart ate Receptor Antagonist Start: 05-07-2024 take 1 [...] PO Daily July 10, 2018 12:00am nystatin 479171 unt/ml / triamcinolone acetonide 1 mg/ml topical cream (13 sources) Polyene Antifungal, Corticosteroid nystatin-triamcinolo ne (Mycolog II) cream Apply topically 2 (two) times a day. Active Nystatin-Triamcinolon e 246831-9.1 UNIT/GM-% (2 sources) Nystatin-Triamci nolone 391825-1.1 UNIT/GM-% 1 application to affected area Externally [...] 10, 2018 12:00am May 18, 2024 7:02pm [place] 8-Kib-Ozn-Fish Oil (Fish Oil) 1,000 mg (120 mg-180 mg) Capsule (8 sources) Start: 07-10-2018 End: 05-18-2024 take 1 capsule by mouth once daily [place] 1-Gap-Xhi-Fish Oil (Fish Oil) 1,000 mg (120 mg-180 mg) Capsule Discontinued 1 CAP PO Daily July 10, 2018 12:00am May 18, 2024 7:02pm Start: 07-10-2018 take 1 capsule by mo uth once daily [place] 9-Zev-Hna-Fish Oil (Fish Oil) 1,000 mg (120 mg-180 mg) Capsule Active 1 CAP PO Daily July 09, 2018 11:00pm Start: 07-10-2018 take 1 capsule by mo uth once daily [place] 2-Vhc-Njn-Fish Oil (Fish Oil) 1,000 mg (120 mg-180 [...] disease (20 sources) Atherosclerotic heart disease of [place] coronary artery without angina pectoris; Translations: [Coronary [...] (1 source) Patient encounter status; Translations: [Other halfway (current) drug therapy] 03-01-2024 Episodic Other circulatory [...] Unclassified (2 sources) 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(ICD-9) Onset: 01-05-2018 Unclassified (1 source) Coronary angioplasty status / Z98.61(ICD-9) Onset: 01-05-2018 Unclassified (1 source) A [facility] screening has identified you as FRAIL [...] Four Ways to Beat the Frailty Risk [email or web address]/wel cmfnx-qgg-toavkitrup/ sswk-otrjrb-cktt-ways -mf-vdom-uxf-fra ilty-risk 05-28-2024 Viral infection (1 source) Herpes [...] gap [Moles/Vol] 9.9 mmol/L Normal 6.0-15.0 [facility] Comment on above: Performed By: #### C BCNO, BMP, MG #### [address] Calcium [Mass/Vol] 8.3 mg/dL Low 8.6-10.3 [facility] Comment on above: Performed By: #### C BCNO, BMP, MG #### [facility] [address] Chloride [Moles/Vol] 107 mmol/L Normal 98-107 [facility] Comment on above: Performed By: #### C BCNO, BMP, MG #### [address] CO2 [Moles/Vol] 26.3 mmol/L Normal 21.0-31.0 [facility] Comment on above: Performed By: #### C BCNO, BMP, MG #### [address] Creatinine [Mass/Vol] 0.90 mg/dL Normal 0.70-1.30 [facility] Comment on above: Performed By: #### C BCNO, BMP, MG #### [place] [address] [place] Creatinine Clr Calc Pharmacy 66.83 Normal [facility] Comment on above: Performed By: #### C BCNO, BMP, MG #### [place] [address] [place] GFR/1.73 sq M.predicted MDRD (S/P/Bld) [Vol rate/Area] mL/min/{1.73_m2} Normal [facility] Comment on above: Performed By: #### C BCNO, BMP, MG #### [address] Glucose [Mass/Vol] 126 mg/dL High 70-100 [facility] Comment on above: Result Comment: Arvin Glucose Reference Range is dependent on time and content of last meal. Glucose of more than 200 mg/dL in a nonstressed, ambulatory subject supports the diagnosis of Diabetes Mellitus. ADA recommended reference range Performed By: #### C BCNO, BMP, MG #### [address] Potassium [Moles/Vol] 4.2 mmol/L Normal 3.5-5.1 [facility] Comment on above: Performed By: #### C BCNO, BMP, MG #### [facility] [address] [place] [address] [place] Sodium [Moles/Vol] 139 mmol/L Normal 136-145 [facility] Comment on above: Performed By: #### C BCNO, BMP, MG #### [facility] [address] [place] [address] [place] Urea nitrogen [Mass/Vol] 24 mg/dL Normal 7-25 [facility] Comment on above: Performed By: #### C BCNO, BMP, MG #### [facility] [address] Calcium [Mass/volume] in Ser um or PlasmaOrdered By: Dread Toney on 05-28-2024 Calcium [Mass/Vol] Calcium [Mass/volume ] in Serum or Plasma Low 8.6-10.3 [facility] Carbon dioxide, total [Moles /volume] in Serum or PlasmaOrdered By: Dread Toney on 05-28-2024 CO2 [Moles/Vol] Carbon dioxide, tota l [Moles/volume] in Serum or Plasma 21.0-31.0 [facility] Chloride [Moles/volume] in S grady or PlasmaOrdered By: Dread Toney on 05-28-2024 Chloride [Moles/Vol] Chloride [Moles/volume] in Serum or Plasma 98-107 [facility] Creatinine [Mass/volume] in Serum or PlasmaOrdered By: Dread Toney on 05-28-2024 Creatinine [Mass/Vol] Creatinine [Mass/volume] in Serum or Plasma 0.70-1.30 [facility] Erythrocyte distribution wid th Auto (RBC) [Ratio]Ordered By: Dread Toney on 05-28-2024 Erythrocyte distribution width (RBC) [Ratio] Erythrocyte distribution width [Ratio] by Automated count 12.0-14.8 [facility] Glucose Glucometer (BldC) [M ass/Vol]Ordered By: Dread Toney on 05-28-2024 Glucose [Mass/Vol] Capillary blood glucose measurement by glucometer (mass/volume) [facility] Comment on above: Random Glucose Refer ence Range is dependent on time and content of last meal. Glucose of more than 200 mg/dL in a nonstressed, ambulatory subject supports the diagnosis of Diabetes Mellitus. Glucose Poct Glucometerson 0 05-28-2024 Glucose [Mass/Vol] 215 mg/dL Normal [facility] Comment on above: Result Comment: Arvin om Glucose Reference Range is dependent on time and content of last meal. Glucose of more than 200 mg/dL in a nonstressed, ambulatory subject supports the diagnosis of Diabetes Mellitus. PERFORMED BY: [place] [address] PATHOLOGIST EMAIL MARKETING EXECUTIVE JOSUE DAMON M.D. Performed By: #### C FRANNIE BHATTI MG #### [facility] [address] [place] [address] [facility] Glucose [Mass/Vol] 127 mg/dL Normal [facility] Comment on above: Result Comment: Arvin om Glucose Reference Range is dependent on time and content of last meal. Glucose of more than 200 mg/dL in a nonstressed, ambulatory subject supports the diagnosis of Diabetes Mellitus. PERFORMED BY: [place] [address] PATHOLOGIST EMAIL MARKETING EXECUTIVE JOSUE DAMON M.D. Performed By: #### FRANNIE BOWENS MG #### [facility] [address] [place], [place] [id number] [facility] Glucose [Mass/volume] in Ser um or PlasmaOrdered By: Dread Toney on 05-28-2024 Glucose [Mass/Vol] Glucose [Mass/volume ] in Serum or Plasma High 70-100 [facility] Comment on above: ADA recommended refe rence rangeRandom Glucose Reference Range is dependent on time and content of last meal. Glucose of more than 200 mg/dL in a nonstressed, ambulatory subject supports the diagnosis of Diabetes Mellitus. Hematocrit Auto (Bld) [Volum e fraction]Ordered By: Dread Toney on 05-28-2024 Hematocrit (Bld) [Volume fraction] Hematocrit [Volume Fraction] of Blood by Automated count Low 38.8-50.0 [facility] Hemoglobin [Mass/volume] in BloodOrdered By: Dread Toney on 05-28-2024 Hemoglobin (Bld) [Mass/Vol] Hemoglobin [Mass/volume] in Blood Low 13.0-17.0 [facility] Hemogram CBC Without Diffon 05-28-2024 Erythrocyte distribution width (RBC) [Ratio] 14.1 % Normal 12.0-14.8 [facility] Comment on above: Performed By: #### C BCNO, BMP, MG #### [address] Hematocrit (Bld) [Volume fraction] 36.2 % Low 38.8-50.0 [facility] Comment on above: Performed By: #### C BCNO, BMP, MG #### [address] Hemoglobin (Bld) [Mass/Vol] 12.3 g/dL Low 13.0-17.0 [facility] Comment on above: Performed By: #### C BCNO, BMP, MG #### [address] MCH (RBC) [Entitic mass] 30.9 pg Normal 27.5-35.2 [facility] Comment on above: Performed By: #### C BCNO, BMP, MG #### [address] MCV (RBC) [Entitic vol] 91.0 fL Normal 83.5-101 [facility] Comment on above: Performed By: #### C BCNO, BMP, MG #### [address] Mean Corpuscular HGB Conc 33.9 g/dL Normal 32.5-35.6 [facility] Comment on above: Performed By: #### C BCNO, BMP, MG #### [address] Platelet mean volume (Bld) [Entitic vol] 8.9 fL Normal 6.6-10.1 [facility] Comment on above: Result Comment: PERF ORMED BY: [place] [address] PATHOLOGIST EMAIL MARKETING EXECUTIVE JOSUE DAMON M.D. Performed By: #### C BCNO, BMP, MG #### [facility] [address] [place] [address] Platelets (Bld) [#/Vol] 221 10*3/uL Normal 150-450 [facility] Comment on above: Performed By: #### C BCNO, BMP, MG #### [address] RBC (Bld) [#/Vol] 3.98 10*6/uL Normal 3.90-5.60 [facility] Comment on above: Performed By: #### C BCNO, BMP, MG #### [address] WBC (Bld) [#/Vol] 8.7 10*3/uL Normal 4.1-10.5 [facility] Comment on above: Performed By: #### C BCNO, BMP, MG #### [address] Leukocytes [#/volume] correc marimar for nucleated erythrocytes in Blood by Automated counOrdered By: Dread Toney on 05-28-2024 WBC corrected for nucl RBC Auto (Bld) [#/Vol] Leukocytes [#/volume] corrected for nucleated erythrocytes in Blood by Automated coun 4.1-10.5 [facility] MCH Auto (RBC) [Entitic mass ]Ordered By: Dread Toney on 05-28-2024 MCH (RBC) [Entitic mass] MCH [Entitic mass] by Automated count 27.5-35.2 [facility] MCHC Auto (RBC) [Mass/Vol]Or dered By: Dread Toney on 05-28-2024 MCHC (RBC) [Mass/Vol] MCHC [Mass/volume] by Automated count 32.5-35.6 [facility] MCV Auto (RBC) [Entitic vol] Ordered By: Dread Toney on 05-28-2024 MCV (RBC) [Entitic vol] MCV [Entitic vol ume] by Automated count 83.5-101 [facility] Magnesiumon 05-28-2024 Magnesium [Mass/Vol] 1.6 mg/dL Low 1.9-2.7 [facility] Comment on above: Result Comment: PERF ORMED BY: [facility] [address] [place] [address] PATHOLOGIST EMAIL MARKETING EXECUTIVE JOSUE DAMON M.D. Performed By: #### C BCNO, BMP, MG #### [facility] [address] Magnesium [Mass/volume] in S grady or PlasmaOrdered By: Dread Toney on 05-28-2024 Magnesium [Mass/Vol] Magnesium [Mass/volume] in Serum or Plasma Low 1.9-2.7 [facility] No Panel InformationOrdered By: Dread Toney on 05-28-2024 Estimated GFR (CKD-EPI) > 60.0 mL/Min [facility] Creatinine Clearance (Chem 66.83 [facility] Platelet mean volume Auto (B ld) [Entitic vol]Ordered By: Dread Toney on 05-28-2024 Platelet mean volume (Bld) [Entitic vol] Platelet mean volume [Entitic volume] in Blood by Automated count 6.6-10.1 [facility] Platelets Auto (Bld) [#/Vol] Ordered By: Dread Toney on 05-28-2024 Platelets (Bld) [#/Vol] Platelets [#/vol ume] in Blood by Automated count 150-450 [facility] Potassium [Moles/volume] in Serum or PlasmaOrdered By: Dread Toney on 05-28-2024 Potassium [Moles/Vol] Potassium [Moles/volume] in Serum or Plasma 3.5-5.1 [facility] RBC Auto (Bld) [#/Vol]Ordere d By: Dread Toney on 05-28-2024 RBC (Bld) [#/Vol] Erythrocytes [#/volume] in Blood by Automated count 3.90-5.60 [facility] Serum or plasma anion gap de terminationOrdered By: Dread Toney on 05-28-2024 Anion gap [Moles/Vol] Serum or plasma an ion gap determination 6.0-15.0 [facility] Sodium [Moles/volume] in Ser um or PlasmaOrdered By: Dread Toeny on 05-28-2024 Sodium [Moles/Vol] Sodium [Moles/volume ] in Serum or Plasma 136-145 [facility] Urea nitrogen [Mass/volume] in Serum or PlasmaOrdered By: Dread Toney on 05-28-2024 Urea nitrogen [Mass/Vol] Urea nitrogen [Mass/volume] in Serum or Plasma 7-25 [facility] Glucose Poct Glucometerson 0 05-27-2024 Commemt1 Glu2: Cleaned Meter Normal [facility] Comment on above: Result Comment: PERF ORMED BY: [address] [address] PATHOLOGIST EMAIL MARKETING EXECUTIVE JOSUE DAMON M.D. Performed By: #### G LULS #### Point of Care testing , Glucose [Mass/Vol] 128 mg/dL Normal [facility] Comment on above: Result Comment: Arvin Glucose Reference Range is dependent on time and content of last meal. Glucose of more than 200 mg/dL in a nonstressed, ambulatory subject supports the diagnosis of Diabetes Mellitus. Performed By: #### G LULS #### Point of Care testing , Commemt1 Glu2: Cleaned Meter Normal [facility] Comment on above: Result Comment: PERF ORMED BY: [address] [place] [address] PATHOLOGIST EMAIL MARKETING EXECUTIVE JOSUE DAMON M.D. Performed By: #### G LULS #### Point of Care testing , Glucose [Mass/Vol] 114 mg/dL Normal [facility] Comment on above: Result Comment: Arvin Glucose Reference Range is dependent on time and content of last meal. Glucose of more than 200 mg/dL in a nonstressed, ambulatory subject supports the diagnosis of Diabetes Mellitus. Performed By: #### G LULS #### Point of Care testing , Glucose [Mass/Vol] 126 mg/dL Normal [facility] Comment on above: Result Comment: Arvin Glucose Reference Range is dependent on time and content of last meal. Glucose of more than 200 mg/dL in a nonstressed, ambulatory subject supports the diagnosis of Diabetes Mellitus. PERFORMED BY: [address] [place] [address] PATHOLOGIST EMAIL MARKETING EXECUTIVE JOSUE DAMON M.D. Performed By: #### G LULS #### Point of Care testing , Glucose [Mass/Vol] 135 mg/dL Normal [facility] Comment on above: Result Comment: Arvin Glucose Reference Range is dependent on time and content of last meal. Glucose of more than 200 mg/dL in a nonstressed, ambulatory subject supports the diagnosis of Diabetes Mellitus. PERFORMED BY: [address] [address] PATHOLOGIST EMAIL MARKETING EXECUTIVE JOSUE DAMON M.D. Performed By: #### G LULS #### Point of Care testing , No Panel InformationOrdered By: Dread Toney on 05-27-2024 Bedside Glucose Comment Glu2: cleaned meter [facility] Glucose Poct Glucometerson 0 05-26-2024 Glucose [Mass/Vol] 150 mg/dL Normal [facility] Comment on above: Result Comment: Arvin Glucose Reference Range is dependent on time and content of last meal. Glucose of more than 200 mg/dL in a nonstressed, ambulatory subject supports the diagnosis of Diabetes Mellitus. PERFORMED BY: [address] [place] [address] PATHOLOGIST EMAIL MARKETING EXECUTIVE JOSUE DAMON M.D. Performed By: #### G LULS #### Point of Care testing , Glucose [Mass/Vol] 140 mg/dL Normal [facility] Comment on above: Result Comment: Arvin Glucose Reference Range is dependent on time and content of last meal. Glucose of more than 200 mg/dL in a nonstressed, ambulatory subject supports the diagnosis of Diabetes Mellitus. PERFORMED BY: [address] [place] [address] PATHOLOGIST EMAIL MARKETING EXECUTIVE JOSUE DAMON M.D. Performed By: #### G LULS #### Point of Care testing , Glucose [Mass/Vol] 102 mg/dL Normal [facility] Comment on above: Result Comment: [facility] Glucose Reference Range is dependent on time and content of last meal. Glucose of more than 200 mg/dL in a nonstressed, ambulatory subject supports the diagnosis of Diabetes Mellitus. PERFORMED BY: [place] [address] PATHOLOGIST EMAIL MARKETING EXECUTIVE JOSUE DAMON M.D. Performed By: #### G LULS #### Point of Care testing , Glucose [Mass/Vol] 120 mg/dL Normal [facility] Comment on above: Result Comment: [facility] Glucose Reference Range is dependent on time and content of last meal. Glucose of more than 200 mg/dL in a nonstressed, ambulatory subject supports the diagnosis of Diabetes Mellitus. PERFORMED BY: [place] [address] PATHOLOGIST EMAIL MARKETING EXECUTIVE JOSUE DAMON M.D. Performed By: #### C BCNO, BMP, MG #### [address] MR head/brain wo conon 05-26 MR head/brain wo con [facility] [place] [address] MRI Report Signed Patient: Des Jacob MR#: [id number] : 1940 Acct:[id number] Age/Sex: 83 / M ADM Date: 05/23/24 Loc: Room: [address] [place] [address] Type: ADM INOo Attending Dr: Dread Toney [...] Phani Owens M.D.05/26/2024 10:23 AM Dictation Location: [place] [address] Transcribed By: [facility] 05/26/24 1023 Dictated By: Phani Owens DO 05/26/24 1005 Signed By: 05/26/24 1023 Normal [facility] Magnetic resonance imaging r eportOrdered By: Phani Owens on 05-26-2024 Study report [facility] [place] [address] MRI Report Signed Patient: Des Jacob MR#: [id number] : 1940 Acct:[id number] Age/Sex: 83 / M ADM Date: 5 Loc: Room: [address] [place] [address] Type: ADM INOo Attending Dr: Dread Toney [...] Phani Owens M.D.05/26/2024 10:23 AM Dictation Location: [place] [address] Transcribed By: [facility] 05/26/24 1023 Dictated By: Phani Owens DO 05/26/24 1005 Signed By: 05/26/24 1023 [facility] Glucose Poct Glucometerson 0 05-25-2024 Glucose [Mass/Vol] 160 mg/dL Normal [facility] Comment on above: Result Comment: [facility] Glucose Reference Range is dependent on time and content of last meal. Glucose of more than 200 mg/dL in a nonstressed, ambulatory subject supports the diagnosis of Diabetes Mellitus. PERFORMED BY: [address] [address] PATHOLOGIST EMAIL MARKETING EXECUTIVE JOSUE DAMON M.D. Performed By: #### G LULS #### Point of Care testing , Glucose [Mass/Vol] 190 mg/dL Normal [facility] Comment on above: Result Comment: [facility] Glucose Reference Range is dependent on time and content of last meal. Glucose of more than 200 mg/dL in a nonstressed, ambulatory subject supports the diagnosis of Diabetes Mellitus. PERFORMED BY: [address] [address] PATHOLOGIST EMAIL MARKETING EXECUTIVE JOSUE DAMON M.D. Performed By: #### G LULS #### Point of Care testing , Glucose [Mass/Vol] 98 mg/dL Normal [facility] Comment on above: Result Comment: [facility] Glucose Reference Range is dependent on time and content of last meal. Glucose of more than 200 mg/dL in a nonstressed, ambulatory subject supports the diagnosis of Diabetes Mellitus. PERFORMED BY: [address] [address] PATHOLOGIST EMAIL MARKETING EXECUTIVE JOSUE DAMON M.D. Performed By: #### G LULS #### Point of Care testing , Commemt1 Glu2: Cleaned Meter Normal [facility] Comment on above: Result Comment: PERF ORMED BY: [facility] [address] [place] [address] PATHOLOGIST EMAIL MARKETING EXECUTIVE JOSUE DAMON M.D. Performed By: #### G LULS #### Point of Care testing , Glucose [Mass/Vol] 126 mg/dL Normal [facility] Comment on above: Result Comment: [facility] Glucose Reference Range is dependent on time and content of last meal. Glucose of more than 200 mg/dL in a nonstressed, ambulatory subject supports the diagnosis of Diabetes Mellitus. Performed By: #### G LULS #### Point of Care testing , A1C with Estimated Average Khari gandara 05-24-2024 Glucose [Mass/Vol] 137 mg/dL Normal [facility] Comment on above: Result Comment: PERF ORMED BY: [facility] [address] [place] [address] PATHOLOGIST EMAIL MARKETING EXECUTIVE JOSUE DAMON M.D. Performed By: #### G LULS #### Point of Care testing , HbA1c (Bld) [Mass fraction] 6.4 % High 4.3-5.6 [facility] Comment on above: Result Comment: Incr eased risk for diabetes: 5.7 - 6.4 diabetes: >6.4 glycemic control for adults with diabetes: <7.0 Performed By: #### G LULS #### Point of Care testing , Ammoniaon 05-24-2024 Ammonia (P) [Moles/Vol] 18 umol/L Normal -35 T [facility] Comment on above: Result Comment: PERF ORMED BY: [facility] [address] [place] [address] PATHOLOGIST EMAIL MARKETING EXECUTIVE JOSUE DAMON M.D. Performed By: #### G LULS #### Point of Care testing , Ammonia [Moles/volume] in Pl asmaOrdered By: Prashant Garcia on 05-24-2024 Ammonia (P) [Moles/Vol] Ammonia [Moles/volume] in Plasma -35 [facility] Basic Metabolic Panelon 05-12 Anion gap [Moles/Vol] 12.7 mmol/L Normal 6.0-15.0 [facility] Comment on above: Performed By: #### G LULS #### Point of Care testing , Calcium [Mass/Vol] 8.7 mg/dL Normal 8.6-10.3 [facility] Comment on above: Performed By: #### G LULS #### Point of Care testing , Chloride [Moles/Vol] 106 mmol/L Normal 98-107 [facility] Comment on above: Performed By: #### G LULS #### Point of Care testing , CO2 [Moles/Vol] 25.1 mmol/L Normal 21.0-31.0 [facility] Comment on above: Performed By: #### G LULS #### Point of Care testing , Creatinine [Mass/Vol] 0.92 mg/dL Normal 0.70-1.30 [facility] Comment on above: Performed By: #### G LULS #### Point of Care testing , Creatinine Clr Calc Pharmacy 64.34 Normal [facility] Comment on above: Performed By: #### G LULS #### Point of Care testing , GFR/1.73 sq M.predicted MDRD (S/P/Bld) [Vol rate/Area] mL/min/{1.73_m2} Normal [facility] Comment on above: Performed By: #### G LULS #### Point of Care testing , Glucose [Mass/Vol] 138 mg/dL High 70-100 [facility] Comment on above: Result Comment: [facility] Glucose Reference Range is dependent on time and content of last meal. Glucose of more than 200 mg/dL in a nonstressed, ambulatory subject supports the diagnosis of Diabetes Mellitus. ADA recommended reference range Performed By: #### G LULS #### Point of Care testing , Potassium [Moles/Vol] 3.8 mmol/L Normal 3.5-5.1 [facility] Comment on above: Performed By: #### G LULS #### Point of Care testing , Sodium [Moles/Vol] 140 mmol/L Normal 136-145 [facility] Comment on above: Performed By: #### G LULS #### Point of Care testing , Urea nitrogen [Mass/Vol] 18 mg/dL Normal 7-25 [facility] Comment on above: Performed By: #### G LULS #### Point of Care testing , Basophils Auto (Bld) [#/Vol] Ordered By: Dread Toney on 05-24-2024 Basophils (Bld) [#/Vol] Automated basoph il count 0.0-0.2 [facility] Basophils/100 WBC Auto (Bld) Ordered By: Dread Toney on 05-24-2024 Basophils/100 WBC (Bld) Automated basophil % . [facility] Blood estimated average gluc ose determination by estimation from glycated hemoglobinOrdered By: Dread Toney on 05-24-2024 Average glucose Estimated from glycated hemoglobin (Bld) [Mass/Vol] Glucose mean value [Mass/volume] in Blood Estimated from glycated hemoglobin [facility] Cholesterol [Mass/volume] in Serum or PlasmaOrdered By: Dread Toney on 05-24-2024 Cholesterol [Mass/Vol] Cholesterol [Mass/volume] in Serum or Plasma Low 140-200 [facility] Comment on above: Chol less than 200 m g/dl low riskChol 201-239 mg/dl borderline riskChol 240 mg/dl and greater high risk Cholesterol in HDL [Mass/vol ume] in Serum or PlasmaOrdered By: Dread Toney on 05-24-2024 Cholesterol in HDL [Mass/Vol] Serum or plasma high density lipoprotein (HDL) cholesterol measurement 23-92 [facility] Comment on above: HDL CHOL ATP-III CLA SSIFICATION Cardiovascular RiskHDL > or equal to 60 mg/dL LOWHDL < 40 mg/dL HIGH Cholesterol in LDL Calc [Mas s/Vol]Ordered By: Dread Toney on 05-24-2024 Cholesterol in LDL [Mass/Vol] Cholesterol in LDL [Mass/volume] in Serum or Plasma by calculation 0-100 [facility] Comment on above: LDL ATP III CLASSIFI CATIONLDL less than 100 mg/dL OptimalLDL 100-129 mg/dL Near or above optimalLDL 130-159 mg/dL Borderline highLDL 160-189 mg/dL HighLDL greater than 189 mg/dL Very high Cholesterol in VLDL Calc [Ma ss/Vol]Ordered By: Dread Toney on 05-24-2024 Cholesterol in VLDL [Mass/Vol] Cholesterol in VLDL [Mass/volume] in Serum or Plasma by calculation [facility] Complete Blood Count Auto Di ffon 05-24-2024 Basophils (Bld) [#/Vol] 0.0 10*3/uL Normal 0.0-0.2 [facility] Comment on above: Result Comment: PERF ORMED BY: [facility] [address] [place] [address] PATHOLOGIST [employer]ET[employer] EXECUTIVE JOSUE DAMON M.D. Performed By: #### G LULS #### Point of Care testing , Basophils/100 WBC (Bld) 0.4 % Normal . [facility] Comment on above: Performed By: #### G LULS #### Point of Care testing , Eosinophils (Bld) [#/Vol] 0.1 10*3/uL Normal 0.0-0.45 [facility] Comment on above: Performed By: #### G LULS #### Point of Care testing , Eosinophils/100 WBC (Bld) 1.0 % Normal . [facility] Comment on above: Performed By: #### G LULS #### Point of Care testing , Erythrocyte distribution width (RBC) [Ratio] 14.3 % Normal 12.0-14.8 [facility] Comment on above: Performed By: #### G LULS #### Point of Care testing , Hematocrit (Bld) [Volume fraction] 38.6 % Low 38.8-50.0 [facility] Comment on above: Performed By: #### G LULS #### Point of Care testing , Hemoglobin (Bld) [Mass/Vol] 13.2 g/dL Normal 13.0-17.0 [facility] Comment on above: Performed By: #### G LULS #### Point of Care testing , Lymphocytes (Bld) [#/Vol] 1.4 10*3/uL Normal 1.00-4.8 [facility] Comment on above: Performed By: #### G LULS #### Point of Care testing , Lymphocytes/100 WBC (Bld) 19.2 % Normal . [facility] Comment on above: Performed By: #### G LULS #### Point of Care testing , MCH (RBC) [Entitic mass] 31.1 pg Normal 27.5-35.2 [facility] Comment on above: Performed By: #### G LULS #### Point of Care testing , MCV (RBC) [Entitic vol] 90.9 fL Normal 83.5-101 [facility] Comment on above: Performed By: #### G LULS #### Point of Care testing , Mean Corpuscular HGB Conc 34.2 g/dL Normal 32.5-35.6 [facility] Comment on above: Performed By: #### G LULS #### Point of Care testing , Monocytes (Bld) [#/Vol] 0.7 10*3/uL Normal 0.0-0.8 [facility] Comment on above: Performed By: #### G LULS #### Point of Care testing , Monocytes/100 WBC (Bld) 9.0 % Normal . [facility] Comment on above: Performed By: #### G LULS #### Point of Care testing , Neutrophils (Bld) [#/Vol] 5.3 10*3/uL Normal 1.8-7.7 [facility] Comment on above: Performed By: #### G LULS #### Point of Care testing , Neutrophils/100 WBC (Bld) 70.4 % Normal . [facility] Comment on above: Performed By: #### G LULS #### Point of Care testing , NRBC% 0.1 /100{WBC} Normal 0-0.5 [facility] Comment on above: Performed By: #### G LULS #### Point of Care testing , Platelet mean volume (Bld) [Entitic vol] 9.0 fL Normal 6.6-10.1 [facility] Comment on above: Performed By: #### G LULS #### Point of Care testing , Platelets (Bld) [#/Vol] 194 10*3/uL Normal 150-450 [facility] Comment on above: Performed By: #### G LULS #### Point of Care testing , RBC (Bld) [#/Vol] 4.24 10*6/uL Normal 3.90-5.60 [facility] Comment on above: Performed By: #### G LULS #### Point of Care testing , WBC (Bld) [#/Vol] 7.6 10*3/uL Normal 4.1-10.5 [facility] Comment on above: Performed By: #### G LULS #### Point of Care testing , Eosinophils Auto (Bld) [#/Vo l]Ordered By: Dread Toney on 05-24-2024 Eosinophils (Bld) [#/Vol] Automated eosinophil count 0.0-0.45 [facility] Eosinophils/100 WBC Auto (Bl d)Ordered By: Dread Toney on 05-24-2024 Eosinophils/100 WBC (Bld) Automated eosinophil % . [facility] Glucose Poct Glucometerson 0 05-24-2024 Commemt1 Glu2: Cleaned Meter Normal [facility] Comment on above: Result Comment: PERF ORMED BY: [facility] [address] [place] [address] PATHOLOGIST [employer]ET[employer] EXECUTIVE JOSUE DAMON M.D. Performed By: #### G LULS #### Point of Care testing , Glucose [Mass/Vol] 184 mg/dL Normal [facility] Comment on above: Result Comment: [facility] Glucose Reference Range is dependent on time and content of last meal. Glucose of more than 200 mg/dL in a nonstressed, ambulatory subject supports the diagnosis of Diabetes Mellitus. Performed By: #### G LULS #### Point of Care testing , Hemoglobin A1c/Hemoglobin.to david in BloodOrdered By: Dread Toney on 05-24-2024 HbA1c (Bld) [Mass fraction] Hemoglobin A1c percentage High 4.3-5.6 [facility] Comment on above: Increased risk for d iabetes: 5.7 - 6.4diabetes: >6.4glycemic control for adults with diabetes: <7.0 Immunofixation,Serumon 05-24 Immunofixation, Serum Comment Critically abnormal . 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 PLEASE NOTE: Samples from patients receiving DARZALEX(R) (daratumumab) or SARCLISA(R)(isatuximab-irfc) treatment can appear as an IgG kappa and mask a complete response (CR). If this patient is receiving these therapies, this MICH assay interference can be removed by ordering test number [id number] Immunofixation, Daratumumab-Specific, Serum or [id number] Immunofixation, Isatuximab-Specific, Serum and submitting a new sample for testing or by calling the lab to add this test to the current sample. Immunofixation shows IgM monoclonal protein with lambda light chain specificity. Performed By: #### G LULS #### Point of Care testing , Immunoglobulin A, Serum 326 mg/dL Normal 61-437 [facility] Comment on above: Performed By: #### G LULS #### Point of Care testing , Immunoglobulin G 773 mg/dL Normal 603-1613 [facility] Comment on above: Performed By: #### G LULS #### Point of Care testing , Immunoglobulin M, Serum 83 mg/dL Normal 15-143 [facility] Comment on above: Result Comment: Perf ormed at: - [facility] [id number] [employer] Generalist: Alex Tyler PhD, Phone: [phone] Performed By: #### G LULS #### Point [...] HDL [Mass/Vol] 37 mg/dL Normal 23-92 [facility] Comment on above: Result Comment: HDL CHOL ATP-III CLASSIFICATION Cardiovascular Risk HDL > or equal to 60 mg/dL LOW HDL < 40 mg/dL HIGH Performed By: #### G LULS #### Point of Care testing , Cholesterol.total/Janeen sterol in HDL [Mass ratio] 3.0 {ratio} Normal <5.0 [facility] Comment on above: Performed By: #### G LULS #### Point of Care testing , LDL Cholesterol,Calculated 59 mg/dL Normal 0-100 [facility] Comment on above: Result Comment: LDL ATP III CLASSIFICATION LDL less than 100 mg/dL Optimal LDL 100-129 mg/dL Near or above optimal LDL 130-159 mg/dL Borderline high LDL 160-189 mg/dL High LDL greater than 189 mg/dL Very high Performed By: #### G LULS #### Point of Care testing , Triglyceride w/Reflex 73 mg/dL Normal 0-149 [facility] Comment on above: Result Comment: TRIG ATP III CLASSIFICATION TRIG less than 150 mg/dL Normal TRIG 150-199 mg/dL Borderline high TRIG 200-500 mg/dL High TRIG greater than 500 mg/dL Very high Standard traceable to the Center for Disease Conrtrol and Prevention (CDC) test method. Performed By: #### G LULS #### Point of Care testing , VLDL CHOLESTEROL 14 mg/dL Normal [facility] Comment on above: Performed By: #### G LULS #### Point of Care testing , Lymphocytes Auto (Bld) [#/Vo l]Ordered By: Dread Toney on 05-24-2024 Lymphocytes (Bld) [#/Vol] Lymphocytes [#/volume] in Blood by Automated count 1.00-4.8 [facility] Lymphocytes/100 WBC Auto (Bl d)Ordered By: Dread Toney on 05-24-2024 Lymphocytes/100 WBC (Bld) Lymphocytes/100 leukocytes in Blood by Automated count . [facility] Magnesiumon 05-24-2024 Magnesium [Mass/Vol] 1.8 mg/dL Low 1.9-2.7 [facility] Comment on above: Performed By: #### G LULS #### Point of Care testing , Monocytes Auto (Bld) [#/Vol] Ordered By: Dread Toney on 05-24-2024 Monocytes (Bld) [#/Vol] Automated blood monocyte count 0.0-0.8 [facility] Monocytes/100 WBC Auto (Bld) Ordered By: Dread Toney on 05-24-2024 Monocytes/100 WBC (Bld) Automated monocyte % . [facility] Neutrophils Auto (Bld) [#/Vo l]Ordered By: Dread Toney on 05-24-2024 Neutrophils (Bld) [#/Vol] Neutrophils [#/volume] in Blood by Automated count 1.8-7.7 [facility] Neutrophils/100 WBC Auto (Bl d)Ordered By: Dread Toney on 05-24-2024 Neutrophils/100 WBC (Bld) Automated neutrophil % . [facility] No Panel InformationOrdered By: Prashant Garcia on 05-24-2024 Protein Electrophoresis M-Alejandro Comment: g/dL Not Observed [facility] Comment on above: SPE shows asymmetric al gamma. Suggest serum MICH and free lightchain analysis for further evaluation. Protein Electrophoresis Note Comment . [facility] Comment on above: Protein electrophore sis scan will follow via computer,mail, or rn disease management delivery.Performed at: [email or web address] [place] [id number] Director: Alex Tyler PhD, Phone: [phone] Nucleated erythrocytes [Pres ence] in Blood by Automated countOrdered By: Dread Toney on 05-24-2024 Nucleated RBC Auto Ql (Bld) Nucleated erythrocytes [Presence] in Blood by Automated count 0-0.5 [facility] Phosphate [Mass/volume] in S grady or PlasmaOrdered By: Dread Toney on 05-24-2024 Phosphate [Mass/Vol] Phosphate [Mass/volume] in Serum or Plasma 2.5-4.5 [facility] Phosphoruson 05-24-2024 Phosphate [Mass/Vol] 3.3 mg/dL Normal 2.5-4.5 [facility] Comment on above: Performed By: #### G LULS #### Point of Care testing , Protein Electrophoresis, Ser umon 05-24-2024 Albumin [Mass/Vol] 3.5 g/dL Normal 2.9-4.4 [facility] Comment on above: Performed By: #### G LULS #### Point of Care testing , Albumin/Globulin [Mass ratio] 1.3 {ratio} Normal 0.7-1.7 [facility] Comment on above: Performed By: #### G LULS #### Point of Care testing , Tdklc-5-Knutpepe 0.2 g/dL Normal 0.0-0.4 [facility] Comment on above: Performed By: #### G LULS #### Point of Care testing , Vvvjt-7-Unvkmdhr 0.9 g/dL Normal 0.4-1.0 [facility] Comment on above: Performed By: #### G LULS #### Point of Care testing , Beta Globulin 1.0 g/dL Normal 0.7-1.3 [facility] Comment on above: Performed By: #### G LULS #### Point of Care testing , Gamma Globulin 0.7 g/dL Normal 0.4-1.8 [facility] Comment on above: Performed By: #### G LULS #### Point of Care testing , Globulin (S) [Mass/Vol] 2.8 g/dL Normal 2.2-3.9 [facility] Comment on above: Performed By: #### G LULS #### Point of Care testing , M-Alejandro Comment: Normal Not Observed [facility] Comment on above: Result Comment: SPE shows asymmetrical gamma. Suggest serum MICH and free light chain analysis for further evaluation. Performed By: #### G LULS #### Point of Care testing , Protein [Mass/Vol] 6.3 g/dL Normal 6.0-8.5 [facility] Comment on above: Performed By: #### G LULS #### Point of Care testing , SPE-Note Comment Normal . [facility] Comment on above: Result Comment: Prot ein electrophoresis scan will follow via computer, mail, or rn disease management delivery. Performed at: [address] [id number] [employer] Generalist: Alex Tyler PhD, Phone: [phone] Performed By: #### G LULS #### Point of Care testing , RPR w/rfx to Quant TP Abson 05-24-2024 RPR, Rfx Quant RPR Non-Reactive Normal Non Reactive [facility] Comment on above: Result Comment: Perf ormed at: CB - [facility] [address] [id number] [employer] Generalist: Alex Tyler PhD, Phone: [phone] PERFORMED BY: [address] [place] [address] PATHOLOGIST [employer]ET[employer] EXECUTIVE JOSUE DAMON M.D. Performed By: #### G LULS #### Point of Care testing , Serum RPR testOrdered By: Gopal Garcia on 05-24-2024 Reagin Ab RPR Ql (S) Reagin Ab [Presence ] in Serum by RPR Non Reactive [facility] Comment on above: Performed at: CB - [facility] [address] [id number] Director: Alex Tyler PhD, Phone: [phone] Serum globulin measurement ( mass/volume)Ordered By: Prashant Garcia on 05-24-2024 Globulin (S) [Mass/Vol] Serum globulin measurement (mass/volume) 2.2-3.9 [facility] Serum or plasma albumin blanca urement (mass/volume)Ordered By: Prashant Garcia on 05-24-2024 Albumin [Mass/Vol] Albumin [Mass/volume ] in Serum or Plasma 2.9-4.4 [facility] Serum or plasma albumin/glob ulin mass ratioOrdered By: Prashant Garcia on 05-24-2024 Albumin/Globulin [Mass ratio] Serum or plasma albumin/globulin mass ratio 0.7-1.7 [facility] Serum or plasma alpha 1 glob ulin measurement by electrophoresis (mass/volume)Ordered By: Prashant Garcia on 05-24-2024 Alpha 1 globulin Elph [Mass/Vol] Serum or plasma alpha 1 globulin measurement by electrophoresis (mass/volume) 0.0-0.4 [facility] Serum or plasma alpha 2 glob ulin measurement by electrophoresis (mass/volume)Ordered By: Prashant Garcia on 05-24-2024 Alpha 2 globulin Elph [Mass/Vol] Serum or plasma alpha 2 globulin measurement by electrophoresis (mass/volume) 0.4-1.0 [facility] Serum or plasma beta globuli n measurement by electrophoresis (mass/volume)Ordered By: Prashant Garcia on 05-24-2024 Beta globulin Elph [Mass/Vol] Serum or plasma beta globulin measurement by electrophoresis (mass/volume) 0.7-1.3 [facility] Serum or plasma gamma globul in measurement by electrophoresis (mass/volume)Ordered By: Prashant Garcia on 05-24-2024 Gamma globulin Elph [Mass/Vol] Serum or plasma gamma globulin measurement by electrophoresis (mass/volume) 0.4-1.8 [facility] Serum or plasma total choles terol/high density lipoprotein (HDL) cholesterol mass ratOrdered By: Dread Toney on 05-24-2024 Cholesterol.total/Janeen sterol in HDL [Mass ratio] Serum or plasma total cholesterol/high density lipoprotein (HDL) cholesterol mass rat <5.0 [facility] Serum total protein measurem entOrdered By: Prashant Garcia on 05-24-2024 Protein [Mass/Vol] Protein [Mass/volume ] in Serum or Plasma 6.0-8.5 [facility] Thyroid Stimulating Hormoneo n 05-24-2024 TSH Qn 2.29 m[IU]/L Normal 0.45-5.33 [facility] Comment on above: Result Comment: PERF ORMED BY: [facility] [address] [place] [address] PATHOLOGIST [employer]ET[employer] EXECUTIVE JOSUE DAMON M.D. Performed By: #### G LUMARSHA #### Point of Care testing , Thyrotropin [Units/volume] i n Serum or PlasmaOrdered By: Prashant Garcia on 05-24-2024 TSH Qn Thyrotropin [Units/volume] in Serum or Plasma 0.45-5.33 [facility] Triglyceride [Mass/volume] i n Serum or PlasmaOrdered By: Dread oTney on 05-24-2024 Triglyceride [Mass/Vol] Triglyceride [Mass/volume] in Serum or Plasma 0-149 [facility] Comment on above: TRIG ATP III CLASSIF ICATIONTRIG less than 150 mg/dL NormalTRIG 150-199 mg/dL Borderline highTRIG 200-500 mg/dL High TRIG greater than 500 mg/dL Very highStandard traceable to the Center for Disease Conrtrol and Prevention (CDC) test method. Vitamin B12on 05-24-2024 Cobalamin (Vitamin B12) [Mass/Vol] 298 pg/mL Normal 180-914 [facility] Comment on above: Performed By: #### G LULS #### Point of Care testing , Vitamin B12 ser/plasOrdered By: Prashant Garcia on 05-24-2024 Cobalamin (Vitamin B12) [Mass/Vol] Vitamin B12 ser/plas 180-914 [facility] WBC Auto (Bld) [#/Vol]Ordere d By: Dread Toney on 05-24-2024 WBC (Bld) [#/Vol] Leukocytes [#/volume ] in Blood by Automated count 4.1-10.5 [facility] Alanine aminotransferase [En zymatic activity/volume] in Serum or PlasmaOrdered By: Fredo Hoffmann on 05-23-2024 ALT [Catalytic activity/Vol] Alanine aminotransferase [Enzymatic activity/volume] in Serum or Plasma 752 [facility] Albumin [Mass/volume] in Ser um or Plasma by Bromocresol green (BCG) dye binding methoOrdered By: Fredo Hoffmann on 05-23-2024 Albumin BCG dye [Mass/Vol] Albumin [Mass/volume] in Serum or Plasma by Bromocresol green (BCG) dye binding metho 3.5-5.7 [facility] Alkaline phosphatase [Enzyma tic activity/volume] in Serum or PlasmaOrdered By: Fredo Hoffmann on 05-23-2024 ALP [Catalytic activity/Vol] Alkaline phosphatase [Enzymatic activity/volume] in Serum or Plasma 34-104 [facility] Appearance of UrineOrdered B y: Elenita Munoz on 05-23-2024 Appearance (U) Urine appearance Clear [facility] Aspartate aminotransferase [ Enzymatic activity/volume] in Serum or PlasmaOrdered By: Fredo Hoffmann on 05-23-2024 AST [Catalytic activity/Vol] Aspartate aminotransferase [Enzymatic activity/volume] in Serum or Plasma 13-39 [facility] Bacteria [Presence] in Urine by AutomatedOrdered By: Elenita Munoz on 05-23-2024 Bacteria Auto Ql (U) Bacteria [Presence] in Urine by Automated None Seen [facility] Basophils Auto (Bld) [#/Vol] Ordered By: Fredo Hoffmann on 05-23-2024 Basophils (Bld) [#/Vol] Automated basoph il count 0.0-0.2 [facility] Basophils/100 WBC Auto (Bld) Ordered By: Fredo Hoffmann on 05-23-2024 Basophils/100 WBC (Bld) Automated basophil % . [facility] Bilirubin Test strip Ql (U)O rdered By: Elenita Munoz on 05-23-2024 Bilirubin Ql (U) Bilirubin.total [Presence] in Urine by Test strip Negative [facility] Bilirubin.total [Mass/volume ] in Serum or PlasmaOrdered By: Fredo Hoffmann on 05-23-2024 Bilirubin [Mass/Vol] Bilirubin.total [Mass/volume] in Serum or Plasma High 0.3-1.[address] [facility] CT head/brain wo conon 05-23 CT head/brain wo con [facility] [place] [address] CT Scan Report Signed Patient: Des Jacob MR#: [id number] : 1940 Acct:[id number] Age/Sex: 83 / M ADM Date: 05/23/24 Loc: ER Room: Type: [facility] ER Attending Dr: Copies to: Elenita Munoz [...] or CT evidence of large vascular stroke. [id number] central involutional changes and chronic small vessel ischemic disease. Intracranial vascular calcifications. Visualized intraorbital contents appear unremarkable. Visualized paranasal sinuses are clear. Right frontal scalp soft tissue swelling. No calvarial fracture. CT/CT head/brain wo con IMPRESSION: NO ACUTE INTRACRANIAL ABNORMALITY. MILD/MODERATE CHRONIC MICROVASCULAR CHANGES AND CENTRAL INVOLUTIONAL CHANGE. Impression dictated by: Romero Guerin M.D.05/23/2024 8:58 AM Dictation Location: [place] [address] Transcribed By: [facility] 05/23/24857 Dictated By: Romero Guerin MD 05/23/2455 Signed By: 05/23/24857 Normal [facility] Calcium [Mass/volume] in Ser um or PlasmaOrdered By: Fredo Hoffmann on 05-23-2024 Calcium [Mass/Vol] Calcium [Mass/volume ] in Serum or Plasma 8.6-10.3 [facility] Carbon dioxide, total [Moles /volume] in Serum or PlasmaOrdered By: Fredo Hoffmann on 05-23-2024 CO2 [Moles/Vol] Carbon dioxide, tota l [Moles/volume] in Serum or Plasma 21.0-31.0 [facility] Chloride [Moles/volume] in S grady or PlasmaOrdered By: Fredo Hoffmann on 05-23-2024 Chloride [Moles/Vol] Chloride [Moles/volume] in Serum or Plasma 98-107 [facility] Color Auto (U)Ordered By: Jc Munoz on 05-23-2024 Color (U) Color of Urine by Auto Yellow [facility] Complete Blood Count Auto Di ffon 05-23-2024 Basophils (Bld) [#/Vol] 0.0 10*3/uL Normal 0.0-0.2 [facility] Comment on above: Result Comment: PERF ORMED BY: [facility] [address] [place] [address] PATHOLOGIST [employer]ET[employer] EXECUTIVE JOSUE DAMON M.D. Performed By: #### G LULS #### Point of Care testing , Basophils/100 WBC (Bld) 0.4 % Normal . [facility] Comment on above: Performed By: #### G LULS #### Point of Care testing , Eosinophils (Bld) [#/Vol] 0.2 10*3/uL Normal 0.0-0.45 [facility] Comment on above: Performed By: #### G LULS #### Point of Care testing , Eosinophils/100 WBC (Bld) 2.4 % Normal . [facility] Comment on above: Performed By: #### G LULS #### Point of Care testing , Erythrocyte distribution width (RBC) [Ratio] 14.2 % Normal 12.0-14.8 [facility] Comment on above: Performed By: #### G LULS #### Point of Care testing , Hematocrit (Bld) [Volume fraction] 38.0 % Low 38.8-50.0 [facility] Comment on above: Performed By: #### G LULS #### Point of Care testing , Hemoglobin (Bld) [Mass/Vol] 12.8 g/dL Low 13.0-17.0 [facility] Comment on above: Performed By: #### G LULS #### Point of Care testing , Lymphocytes (Bld) [#/Vol] 1.3 10*3/uL Normal 1.00-4.8 [facility] Comment on above: Performed By: #### G LULS #### Point of Care testing , Lymphocytes/100 WBC (Bld) 16.5 % Normal . [facility] Comment on above: Performed By: #### G LULS #### Point of Care testing , MCH (RBC) [Entitic mass] 31.1 pg Normal 27.5-35.2 [facility] Comment on above: Performed By: #### G LULS #### Point of Care testing , MCV (RBC) [Entitic vol] 92.2 fL Normal 83.5-101 [facility] Comment on above: Performed By: #### G LULS #### Point of Care testing , Mean Corpuscular HGB Conc 33.7 g/dL Normal 32.5-35.6 [facility] Comment on above: Performed By: #### G LULS #### Point of Care testing , Monocytes (Bld) [#/Vol] 0.8 10*3/uL Normal 0.0-0.8 [facility] Comment on above: Performed By: #### G LULS #### Point of Care testing , Monocytes/100 WBC (Bld) 9.4 % Normal . [facility] Comment on above: Performed By: #### G LULS #### Point of Care testing , Neutrophils (Bld) [#/Vol] 5.7 10*3/uL Normal 1.8-7.7 [facility] Comment on above: Performed By: #### G LULS #### Point of Care testing , Neutrophils/100 WBC (Bld) 71.3 % Normal . [facility] Comment on above: Performed By: #### G LULS #### Point of Care testing , NRBC% 0.0 /100{WBC} Normal 0-0.5 [facility] Comment on above: Performed By: #### G LULS #### Point of Care testing , Platelet mean volume (Bld) [Entitic vol] 9.7 fL Normal 6.6-10.1 [facility] Comment on above: Performed By: #### G LULS #### Point of Care testing , Platelets (Bld) [#/Vol] 172 10*3/uL Normal 150-450 [facility] Comment on above: Performed By: #### G LULS #### Point of Care testing , RBC (Bld) [#/Vol] 4.12 10*6/uL Normal 3.90-5.60 [facility] Comment on above: Performed By: #### G LULS #### Point of Care testing , WBC (Bld) [#/Vol] 8.0 10*3/uL Normal 4.1-10.5 [facility] Comment on above: Performed By: #### G LULS #### Point of Care testing , Comprehensive Metabolic Pane stephanie 05-23-2024 Albumin [Mass/Vol] 3.8 g/dL Normal 3.5-5.7 [facility] Comment on above: Performed By: #### G LULS #### Point of Care testing , Albumin/Globulin [Mass ratio] 1.4 {ratio} Normal [facility] Comment on above: Performed By: #### G ANETTELS #### Point of Care testing , ALP [Catalytic activity/Vol] 97 U/L Normal 34-104 [facility] Comment on above: Performed By: #### G LULS #### Point of Care testing , ALT [Catalytic activity/Vol] 12 U/L Normal 7-52 [facility] Comment on above: Performed By: #### G LULS #### Point of Care testing , Anion gap [Moles/Vol] 14.6 mmol/L Normal 6.0-15.0 [facility] Comment on above: Performed By: #### G LULS #### Point of Care testing , AST [Catalytic activity/Vol] 19 U/L Normal 13-39 [facility] Comment on above: Performed By: #### G ANETTELS #### Point of Care testing , Bilirubin [Mass/Vol] 1.2 mg/dL High 0.3-1.0 [facility] Comment on above: Performed By: #### G ANETTELS #### Point of Care testing , Calcium [Mass/Vol] 8.9 mg/dL Normal 8.6-10.3 [facility] Comment on above: Performed By: #### G LULS #### Point of Care testing , Chloride [Moles/Vol] 106 mmol/L Normal 98-107 [facility] Comment on above: Performed By: #### G LULS #### Point of Care testing , CO2 [Moles/Vol] 22.5 mmol/L Normal 21.0-31.0 [facility] Comment on above: Performed By: #### G LULS #### Point of Care testing , Creatinine [Mass/Vol] 1.17 mg/dL Normal 0.70-1.30 [facility] Comment on above: Performed By: #### G LULS #### Point of Care testing , Creatinine Clr Calc Pharmacy 52.16 Normal [facility] Comment on above: Performed By: #### G LULS #### Point of Care testing , GFR/1.73 sq M.predicted MDRD (S/P/Bld) [Vol rate/Area] mL/min/{1.73_m2} Normal [facility] Comment on above: Performed By: #### G LULS #### Point of Care testing , Globulin (S) [Mass/Vol] 2.8 g/dL Normal [facility] Comment on above: Performed By: #### G LULS #### Point of Care testing , Glucose [Mass/Vol] 156 mg/dL High 70-100 [facility] Comment on above: Result Comment: [facility] Glucose Reference Range is dependent on time and content of last meal. Glucose of more than 200 mg/dL in a nonstressed, ambulatory subject supports the diagnosis of Diabetes Mellitus. ADA recommended reference range Performed By: #### G LULS #### Point of Care testing , Potassium [Moles/Vol] 4.1 mmol/L Normal 3.5-5.1 [facility] Comment on above: Performed By: #### G LULS #### Point of Care testing , Protein [Mass/Vol] 6.6 g/dL Normal 6.4-8.9 [facility] Comment on above: Performed By: #### G LULS #### Point of Care testing , Sodium [Moles/Vol] 139 mmol/L Normal 136-145 [facility] Comment on above: Performed By: #### G LULS #### Point of Care testing , Urea nitrogen [Mass/Vol] 30 mg/dL High 7-25 [facility] Comment on above: Performed By: #### G LULS #### Point of Care testing , Creatine Kinaseon 05-23-2024 CK [Catalytic activity/Vol] 114 U/L Normal 30-223 [facility] Comment on above: Performed By: #### G LULS #### Point of Care testing , Creatine kinase [Enzymatic a ctivity/volume] in Serum or PlasmaOrdered By: Fredo Hoffmann on 05-23-2024 CK [Catalytic activity/Vol] Creatine kinase [Enzymatic activity/volume] in Serum or Plasma 30-223 [facility] Creatinine [Mass/volume] in Serum or PlasmaOrdered By: Fredo Hoffmann on 05-23-2024 Creatinine [Mass/Vol] Creatinine [Mass/volume] in Serum or Plasma 0.70-1.30 [facility] Dipstick and Microscopicon 0 05-23-2024 Appearance (U) Clear Normal Clear [facility] Comment on above: Order Comment: Name Collection Type:: Clean-Voided Midstream Performed By: #### C BCNO, BMP, MG #### [address] Bacteria,Urine None Seen Normal None Seen [facility] Comment on above: Order Comment: Name Collection Type:: Clean-Voided Midstream Performed By: #### C BCNO, BMP, MG #### [address] Bilirubin,Urine Negative Normal Negative [facility] Comment on above: Order Comment: Name Collection Type:: Clean-Voided Midstream Performed By: #### C BCNO, BMP, MG #### [address] Cellular Casts,Urine 1-2 High None Seen [facility] Comment on above: Order Comment: Name Collection Type:: Clean-Voided Midstream Performed By: #### C BCNO, BMP, MG #### [address] Color (U) Yellow Normal Yellow [facility] Comment on above: Order Comment: Name Collection Type:: Clean-Voided Midstream Performed By: #### C BCNO, BMP, MG #### [address] Glucose Ql (U) 30 mg/dL High Normal [facility] Comment on above: Order Comment: Name Collection Type:: Clean-Voided Midstream Performed By: #### C BCNO, BMP, MG #### [address] Hyaline Casts,Urine 0-8 Normal 0-8 [facility] Comment on above: Order Comment: Name Collection Type:: Clean-Voided Midstream Performed By: #### C BCNO, BMP, MG #### [address] Ketones Ql (U) Trace High Negative [facility] Comment on above: Order Comment: Name Collection Type:: Clean-Voided Midstream Performed By: #### C BCNO, BMP, MG #### [address] Leukocyte esterase Test strip Ql (U) Negative Normal Negative [facility] Comment on above: Order Comment: Name Collection Type:: Clean-Voided Midstream Performed By: #### C BCNO, BMP, MG #### [address] Mucus,Urine Rare Normal [facility] Comment on above: Order Comment: Name Collection Type:: Clean-Voided Midstream Result Comment: PERF ORMED BY: [place] [address] PATHOLOGIST [employer]MA[employer] MARKET[employer] EXECUTIVE JOSUE DAMON M.D. Performed By: #### C BCNO, BMP, MG #### [address] Nitrite,Urine Negative Normal Negative [facility] Comment on above: Order Comment: Name Collection Type:: Clean-Voided Midstream Performed By: #### C BCNO, BMP, MG #### [address] Occult Blood,Urine Negative Normal Negative [facility] Comment on above: Order Comment: Name Collection Type:: Clean-Voided Midstream Result Comment: PERF ORMED BY: [place] [address] PATHOLOGIST [employer]MA[employer] MARKET[employer] EXECUTIVE JOSUE DAMON M.D. Performed By: #### C BCNO, BMP, MG #### [place] [address] [place] pH (U) 5.5 [pH] Normal 5.0-9.0 [facility] Comment on above: Order Comment: Name Collection Type:: Clean-Voided Midstream Performed By: #### C BCNO, BMP, MG #### [address] Protein (U) [Mass/Vol] 70 mg/dL High Negative [facility] Comment on above: Order Comment: Name Collection Type:: Clean-Voided Midstream Performed By: #### C BCNO, BMP, MG #### [address] RBC,Urine 1-2 Normal 0-4 [facility] Comment on above: Order Comment: Name Collection Type:: Clean-Voided Midstream Performed By: #### C BCNO, BMP, MG #### [address] Specificy [place],Urine 1.029 Normal 1.001-1.030 [facility] Comment on above: Order Comment: Name Collection Type:: Clean-Voided Midstream Performed By: #### C BCNO, BMP, MG #### [address] Urobilinogen,Urine 2 mg/dL High Normal [facility] Comment on above: Order Comment: Name Collection Type:: Clean-Voided Midstream Performed By: #### C BCNO, BMP, MG #### [address] WBC,Urine 1-2 Normal 0-4 [facility] Comment on above: Order Comment: Name Collection Type:: Clean-Voided Midstream Performed By: #### C BCNO, BMP, MG #### [address] ECG 12 lead ECGon 05-23-2024 ECG 12 lead ECG [facility] [place] [address] [place] [address] Electrocardiograph Report Signed Patient: Des Jacob MR#: [id number] : 1940 Acct:[id number] Age/Sex: 83 / M ADM Date: 05/23/24 Loc: Room: [address] [place] [address] Type: ADM INOo Attending Dr: Dread Toney [...] was found Confirmed by ELENITA MUNOZ DO ([id number]) on 05/23/2024 4:21:24 PM Referred By: Electronically Signed By: ELENITA MUNOZ DO Transcribed By: MUS Signed By Elenita Munoz DO 05/23 1621 Normal [facility] Eosinophils Auto (Bld) [#/Vo l]Ordered By: Fredo Hoffmann on 05-23-2024 Eosinophils (Bld) [#/Vol] Automated eosinophil count 0.0-0.45 [facility] Eosinophils/100 WBC Auto (Bl d)Ordered By: Fredo Hoffmann on 05-23-2024 Eosinophils/100 WBC (Bld) Automated eosinophil % . [facility] Epithelial cells.squamous [# /area] in Urine sediment by Automated countOrdered By: Elenita Munoz on 05-23-2024 Epithelial cells.squamous Auto (Urine sed) [#/Area] Epithelial cells.squamous [#/area] in Urine sediment by Automated count [facility] Erythrocyte distribution wid th Auto (RBC) [Ratio]Ordered By: Fredo Hoffmann on 05-23-2024 Erythrocyte distribution width (RBC) [Ratio] Erythrocyte distribution width [Ratio] by Automated count 12.0-14.8 [facility] Erythrocytes [#/area] in Uri ne sediment by Automated countOrdered By: Elenita Munoz on 05-23-2024 RBC Auto (Urine sed) [#/Area] Erythrocytes [#/area] in Urine sediment by Automated count 0-4 [facility] Folate [Mass/volume] in Seru m or PlasmaOrdered By: Dread Toney on 05-23-2024 Folate [Mass/Vol] Folate [Mass/volume] in Serum or Plasma >5.9 [facility] Comment on above: Folate reference ran ge: >5.9 ng/mlThe WHO technical consultation on folate and vitamin [id number] has determined that folate concentrations lessthan 4 ng/ml are considered deficient. Globulin Calc (S) [Mass/Vol] Ordered By: Fredo Hoffmann on 05-23-2024 Globulin (S) [Mass/Vol] Serum globulin measurement by calculation (mass/volume) [facility] Glucose [Mass/volume] in Ser um or PlasmaOrdered By: Fredo Hoffmann on 05-23-2024 Glucose [Mass/Vol] Glucose [Mass/volume ] in Serum or Plasma High 70-100 [facility] Comment on above: ADA recommended refe [...] in Urine by Test strip High Normal [facility] Hematocrit Auto (Bld) [Volum e fraction]Ordered By: Fredo Hoffmann on 05-23-2024 Hematocrit (Bld) [Volume fraction] Hematocrit [Volume Fraction] of Blood by Automated count Low 38.8-50.0 [facility] Hemoglobin Test strip Ql (U) Ordered By: Elenita Munoz on 05-23-2024 Hemoglobin Ql (U) Hemoglobin [Presence ] in Urine by Test strip Negative [facility] Hemoglobin [Mass/volume] in BloodOrdered By: Fredo Hoffmann on 05-23-2024 Hemoglobin (Bld) [Mass/Vol] Hemoglobin [Mass/volume] in Blood Low 13.0-17.0 [facility] Hyaline casts [#/area] in Ur ine sediment by Automated countOrdered By: Elenita Munoz on 05-23-2024 Hyaline casts Auto (Urine sed) [#/Area] Hyaline casts [#/area] in Urine sediment by Automated count 0-8 [facility] Ketones Test strip Ql (U)Ord ered By: Elenita Munoz on 05-23-2024 Ketones Ql (U) Ketones [Presence] i n Urine by Test strip High Negative [facility] Leukocyte esterase [Presence ] in Urine by Test stripOrdered By: Elenita Munoz on 05-23-2024 Leukocyte esterase Test strip Ql (U) Leukocyte esterase [Presence] in Urine by Test strip Negative [facility] Leukocytes [#/area] in Urine sediment by Automated countOrdered By: Elenita Munoz on 05-23-2024 WBC Auto (Urine sed) [#/Area] Leukocytes [#/area] in Urine sediment by Automated count 0-4 [facility] Leukocytes [#/volume] correc marimar for nucleated erythrocytes in Blood by Automated counOrdered By: Fredo Hoffmann on 05-23-2024 WBC corrected for nucl RBC Auto (Bld) [#/Vol] Leukocytes [#/volume] corrected for nucleated erythrocytes in Blood by Automated coun 4.1-10.5 [facility] Lymphocytes Auto (Bld) [#/Vo l]Ordered By: Fredo Hoffmann on 05-23-2024 Lymphocytes (Bld) [#/Vol] Lymphocytes [#/volume] in Blood by Automated count 1.00-4.8 [facility] Lymphocytes/100 WBC Auto (Bl d)Ordered By: Fredo Hoffmann on 05-23-2024 Lymphocytes/100 WBC (Bld) Lymphocytes/100 leukocytes in Blood by Automated count . [facility] MCH Auto (RBC) [Entitic mass ]Ordered By: Fredo Hoffmann on 05-23-2024 MCH (RBC) [Entitic mass] MCH [Entitic mass] by Automated count 27.5-35.2 [facility] MCHC Auto (RBC) [Mass/Vol]Or dered By: Fredo Hoffmann on 05-23-2024 MCHC (RBC) [Mass/Vol] MCHC [Mass/volume] by Automated count 32.5-35.6 [facility] MCV Auto (RBC) [Entitic vol] Ordered By: Fredo Hoffmann on 05-23-2024 MCV (RBC) [Entitic vol] MCV [Entitic vol ume] by Automated count 83.5-101 [facility] Magnesiumon 05-23-2024 Magnesium [Mass/Vol] 1.7 mg/dL Low 1.9-2.7 [facility] Comment on above: Result Comment: PERF ORMED BY: [facility] [address] [place] [address] PATHOLOGIST [employer]ET[employer] EXECUTIVE JOSUE DAMON M.D. Performed By: #### G LUMARSHA #### Point of Care testing , Magnesium [Mass/volume] in S grady or PlasmaOrdered By: Fredo Hoffmann on 05-23-2024 Magnesium [Mass/Vol] Magnesium [Mass/volume] in Serum or Plasma Low 1.9-2.7 [facility] Mixed cellular casts [#/area ] in Urine by Computer assisted methodOrdered By: Elenita Munzo on 05-23-2024 Mixed cellular casts Computer assisted (U) [#/Area] Mixed cellular casts [#/area] in Urine by Computer assisted method High None Seen [facility] Monocytes Auto (Bld) [#/Vol] Ordered By: Fredo Hoffmann on 05-23-2024 Monocytes (Bld) [#/Vol] Automated blood monocyte count 0.0-0.8 [facility] Monocytes/100 WBC Auto (Bld) Ordered By: Fredo Hoffmann on 05-23-2024 Monocytes/100 WBC (Bld) Automated monocyte % . [facility] Mucus [Presence] in Urine by AutomatedOrdered By: Elenita Munoz on 05-23-2024 Mucus Auto Ql (U) Mucus [Presence] in Urine by Automated [facility] Neutrophils Auto (Bld) [#/Vo l]Ordered By: Fredo Hoffmann on 05-23-2024 Neutrophils (Bld) [#/Vol] Neutrophils [#/volume] in Blood by Automated count 1.8-7.7 [facility] Neutrophils/100 WBC Auto (Bl d)Ordered By: Fredo Hoffmann on 05-23-2024 Neutrophils/100 WBC (Bld) Automated neutrophil % . [facility] Nitrite Test strip Ql (U)Ord ered By: Elenita Munoz on 05-23-2024 Nitrite Ql (U) Nitrite [Presence] i n Urine by Test strip Negative [facility] No Panel InformationOrdered By: Fredo Hoffmann on 05-23-2024 Estimated GFR (CKD-EPI) > 60.0 mL/Min [facility] Creatinine Clearance (Chem 52.16 [facility] Nucleated erythrocytes [Pres ence] in Blood by Automated countOrdered By: Fredo Hoffmann on 05-23-2024 Nucleated RBC Auto Ql (Bld) Nucleated erythrocytes [Presence] in Blood by Automated count 0-0.5 [facility] Platelet mean volume Auto (B ld) [Entitic vol]Ordered By: Fredo Hoffmann on 05-23-2024 Platelet mean volume (Bld) [Entitic vol] Platelet mean volume [Entitic volume] in Blood by Automated count 6.6-10.1 [facility] Platelets Auto (Bld) [#/Vol] Ordered By: Fredo Hoffmann on 05-23-2024 Platelets (Bld) [#/Vol] Platelets [#/vol ume] in Blood by Automated count 150-450 [facility] Potassium [Moles/volume] in Serum or PlasmaOrdered By: Fredo Hoffmann on 05-23-2024 Potassium [Moles/Vol] Potassium [Moles/volume] in Serum or Plasma 3.5-5.1 [facility] Protein Test strip (U) [Mass /Vol]Ordered By: Elenita Munoz on 05-23-2024 Protein (U) [Mass/Vol] Protein [Mass/vol ume] in Urine by Test strip High Negative [facility] Protein [Mass/volume] in Ser um or PlasmaOrdered By: Fredo Hoffmann on 05-23-2024 Protein [Mass/Vol] Protein [Mass/volume ] in Serum or Plasma 6.4-8.9 [facility] RBC Auto (Bld) [#/Vol]Ordere d By: Fredo Hoffmann on 05-23-2024 RBC (Bld) [#/Vol] Erythrocytes [#/volume] in Blood by Automated count 3.90-5.60 [facility] Serum or plasma albumin/glob ulin mass ratioOrdered By: Fredo Hoffmann on 05-23-2024 Albumin/Globulin [Mass ratio] Serum or plasma albumin/globulin mass ratio [facility] Serum or plasma anion gap de terminationOrdered By: Fredo Hoffmann on 05-23-2024 Anion gap [Moles/Vol] Serum or plasma an ion gap determination 6.0-15.0 [facility] Sodium [Moles/volume] in Ser um or PlasmaOrdered By: Fredo Hoffmann on 05-23-2024 Sodium [Moles/Vol] Sodium [Moles/volume ] in Serum or Plasma 136-145 [facility] Specific gravity Test strip (U) [Rel density]Ordered By: Elenita Munoz on 05-23-2024 Specific gravity (U) [Rel density] Specific gravity of Urine by Test strip 1.001-1.030 [facility] Thyroid Stimulating Hormoneo n 05-23-2024 TSH Qn 2.77 m[IU]/L Normal 0.45-5.33 [facility] Comment on above: Order Comment: Comme nt add on Performed By: #### C BCNO, BMP, MG #### [facility] [address] Thyrotropin [Units/volume] i n Serum or PlasmaOrdered By: Dread Toney on 05-23-2024 TSH Qn Thyrotropin [Units/volume] in Serum or Plasma 0.45-5.33 [facility] Troponin I High Sensitivityo n 05-23-2024 Troponin I High Sensitivity 8 Normal 0-20 [facility] Comment on above: Result Comment: The Troponin units of report have been changed to meet the Chest Pain Accreditation requirement, element EC5.M1l2. Troponin units are changed from pg/ml to ng/L. Also, the decimal is removed and results are in whole numbers. PERFORMED BY: [facility] [address] [place] [address] PATHOLOGIST [employer]ET[employer] EXECUTIVE JOSUE DAMON M.D. Performed By: #### G LUMARSHA #### Point of Care testing , Troponin I.cardiac [Mass/vol ume] in Serum or Plasma by Detection limit <= 0.01 ng/Ordered By: Fredo Hoffmann on 05-23-2024 Troponin I.cardiac DL <= 0.01 ng/mL [Mass/Vol] Troponin I.cardiac [Mass/volume] in Serum or Plasma by Detection limit <= 0.01 ng/ 0-20 [facility] Comment on above: The Troponin units [...] [Mass/volume] in Serum or Plasma High 7-25 [facility] Urobilinogen Test strip (U) [Mass/Vol]Ordered By: Elenita Munoz on 05-23-2024 Urobilinogen (U) [Mass/Vol] Urobilinogen [Mass/volume] in Urine by Test strip High Normal [facility] Vit. B12/Folate Profileon Cobalamin (Vitamin B12) [Mass/Vol] 263 pg/mL Normal 180-914 [facility] Comment on above: Order Comment: Comme nt add on Performed By: #### C BCNO, BMP, MG #### [address] Folate 11.0 ng/mL Normal >5.9 [facility] Comment on above: Order Comment: Comme nt add on Result Comment: Cheryl te reference range: >5.9 ng/ml The WHO technical consultation on folate and vitamin b12 deficiencies has determined that folate concentrations less than 4 ng/ml are considered deficient. Performed By: #### C BCNO, BMP, MG #### [facility] [address] Vitamin B12 ser/plasOrdered By: Dread Toney on 05-23-2024 Cobalamin (Vitamin B12) [Mass/Vol] Vitamin B12 ser/plas 180-914 [facility] Vitamin D 25 Hydroxy Totalon 05-23-2024 Vitamin D 25 Hydroxy Total 20.7 ng/mL Low 30-100 [facility] Comment on above: Order Comment: Comme nt add on Result Comment: SONI MIN D STATUS 25(OH)VITAMIN D RANGE (ng/mL) Deficient <20 Insufficient 20 to <30 Sufficient 30 to 100 Reference: Tammie MF,Osei NC, Silvestre KEARNS, et al. Evaluation,treatment, and prevention of vitamin D deficiency; an Endocrine Society clinical practice guideline. JCEM. 2010; 96(7):1911-30. PERFORMED BY: [place] [address] PATHOLOGIST [employer]ET[employer] EXECUTIVE JOSUE DAMON M.D. Performed By: #### G LULS #### Point of Care testing , Vitamin D+Metabolites [Mass/ volume] in Serum or PlasmaOrdered By: Dread Toney on 05-23-2024 Vitamin D+Metabolites [Mass/Vol] Vitamin D+Metabolites [Mass/volume] in Serum or Plasma Low 30-100 [facility] Comment on above: VITAMIN D STATUS [...] ] in Blood by Automated count 4.1-10.5 [facility] X-ray reportOrdered By: Gilbert Clarke on 05-23-2024 Study report [facility] [place] [address] [place] [address] XRay Report Signed Patient: Des Jacob MR#: [id number] : 1940 Acct:[id number] Age/Sex: 83 / M ADM Date: 5 Loc: ER Room: Type: [facility] ER Attending Dr: Copies to: DO Fredo [...] Clarke Jr., D.O.05/23/2024 9:03 AM Dictation Location: [place] [address] Transcribed By: [facility] 05/23/24902 Dictated By: Shamar Clarke Jr, DO 05/23/24900 Signed By: 05/23/24 09 [facility] XR chest 1V portableon 05-23 XR chest 1V portable [facility] [place] [address] [place] [address] XRay Report Signed Patient: Des Jacob MR#: [id number] : 1940 Acct:[id number] Age/Sex: 83 / M ADM Date: 05/23/24 Loc: ER Room: Type: [facility] ER Attending Dr: Copies to: DO Fredo [...] Clarke Jr., D.O.05/23/2024 9:03 AM Dictation Location: [facility] Transcribed By: [facility] 05/23/24902 Dictated By: Shamar Clarke Jr, DO 05/23/24900 Signed By: 05/23/24902 Normal [facility] pH Test strip (U)Ordered By: Elenita Munoz on 05-23-2024 pH (U) pH of Urine by Test strip 5.0-9.0 [facility] Alanine aminotransferase [En zymatic activity/volume] in Serum or PlasmaOrdered By: Floyd Moseley on 05-18-2024 ALT [Catalytic activity/Vol] Alanine aminotransferase [Enzymatic activity/volume] in Serum or Plasma [facility] Albumin [Mass/volume] in Ser um or Plasma by Bromocresol green (BCG) dye binding methoOrdered By: Floyd Moseley on 05-18-2024 Albumin BCG dye [Mass/Vol] Albumin [Mass/volume] in Serum or Plasma by Bromocresol green (BCG) dye binding metho 3.5-5.7 [facility] Alkaline phosphatase [Enzyma tic activity/volume] in Serum or PlasmaOrdered By: Floyd Moseley on 05-18-2024 ALP [Catalytic activity/Vol] Alkaline phosphatase [Enzymatic activity/volume] in Serum or Plasma 34-104 [facility] Appearance of UrineOrdered B y: Floyd Moseley on 05-18-2024 Appearance (U) Urine appearance Clear [facility] Aspartate aminotransferase [ Enzymatic activity/volume] in Serum or PlasmaOrdered By: Floyd Moseley on 05-18-2024 AST [Catalytic activity/Vol] Aspartate aminotransferase [Enzymatic activity/volume] in Serum or Plasma 13-39 [facility] Bacteria [Presence] in Urine by AutomatedOrdered By: Floyd Moseley on 05-18-2024 Bacteria Auto Ql (U) Bacteria [Presence] in Urine by Automated None Seen [facility] Basophils Auto (Bld) [#/Vol] Ordered By: Floyd Moseley on 05-18-2024 Basophils (Bld) [#/Vol] Automated basoph il count 0.0-0.2 [facility] Basophils/100 WBC Auto (Bld) Ordered By: Floyd Moseley on 05-18-2024 Basophils/100 WBC (Bld) Automated basophil % . [facility] Bilirubin Test strip Ql (U)O rdered By: Floyd Moseley on 05-18-2024 Bilirubin Ql (U) Bilirubin.total [Presence] in Urine by Test strip Negative [facility] Bilirubin.total [Mass/volume ] in Serum or PlasmaOrdered By: Floyd Moseley on 05-18-2024 Bilirubin [Mass/Vol] Bilirubin.total [Mass/volume] in Serum or Plasma High 0.3-1.0 [facility] Comment on above: Samples from patient s who have taken Naproxen have shown spurious elevation in Total Bilirubin levels. A metabolite of Naproxen, O-desmethylnaproxen, has been shown to interfere with the Champ-Brennen method for measuring Total Bilirubin. COVID Cepheid NegativeOrdere d By: Floyd Moseley on 05-18-2024 SARS-CoV-2 (COVID-19) Ab IA Ql COVID Cepheid Negative [facility] Comment on above: This is a [...] or Cepheid Disclaimer revoked sooner. PERFORMED BY: [facility] [place] [address] PATHOLOGIST EMA[employer] MARKETING EXECUTIVE JOSUE Ford [facility] Comment on above: Performed By: #### C MAGY, FRANNIE, MG #### [address] head/brain wo conon 05-18 CT head/brain wo con [facility] [place] [address] [place] [address] CT Scan Report Signed Patient: Des Jacob MR#: [id number] : 1940 Acct:[id number] Age/Sex: 83 / M ADM Date: 05/18/24 Loc: ER Room: Type: [facility] ER Attending Dr: Copies to: Floyd Moseley [...] Aurelia Michael M.D.05/18/2024 5:47 PM Dictation Location: [place] [address] Transcribed By: [facility] 05/18/241746 Dictated By: Aurelia Michael MD 05/18/241742 Signed By: 05/18/241746 Normal [facility] Calcium [Mass/volume] in Ser um or PlasmaOrdered By: Floyd Moseley on 05-18-2024 Calcium [Mass/Vol] Calcium [Mass/volume ] in Serum or Plasma 8.6-10.3 [facility] Carbon dioxide, total [Moles /volume] in Serum or PlasmaOrdered By: Floyd Moseley on 05-18-2024 CO2 [Moles/Vol] Carbon dioxide, tota l [Moles/volume] in Serum or Plasma Low 21.0-31.0 [facility] Cepheid COVID PCR Negativeon 05-18-2024 SARS-CoV-2 (COVID-19) RNA ROSEMARIE+probe Ql (Unsp spec) Negative Normal Negative [facility] Comment on above: Result Comment: This is a duplicate CepTopVisibleid Xpert Xpress CoV-2/Flu/RSV Plus RNA by RT-PCR result to be used for statistical tracking purpose only. PERFORMED BY: [place] [address] PATHOLOGIST [employer] MARKET[employer] EXECUTIVE JOSUE DAMON M.D. Performed By: #### C FRANNIE BHATTI, MG #### [place] [id number] [place] Chloride [Moles/volume] in S grady or PlasmaOrdered By: Floyd Moseley on 05-18-2024 Chloride [Moles/Vol] Chloride [Moles/volume] in Serum or Plasma High 98-107 [facility] Color Auto (U)Ordered By: Marilu Moseley on 05-18-2024 Color (U) Color of Urine by Auto Yellow [facility] Complete Blood Count Auto Di ffon 05-18-2024 Basophils (Bld) [#/Vol] 0.0 10*3/uL Normal 0.0-0.2 [facility] Comment on above: Result Comment: PERF ORMED BY: [place] [address] PATHOLOGIST [employer] MARKET[employer] EXECUTIVE JOSUE DAMON M.D. Performed By: #### C BCMARCI BMP, MG #### [facility] [address] [place] [address] [place] Basophils/100 WBC (Bld) 0.6 % Normal . [facility] Comment on above: Performed By: #### C BCMARCI BMP, MG #### [address] Eosinophils (Bld) [#/Vol] 0.0 10*3/uL Normal 0.0-0.45 [facility] Comment on above: Performed By: #### C BCNO, BMP, MG #### [address] Eosinophils/100 WBC (Bld) 0.3 % Normal . [facility] Comment on above: Performed By: #### C BCNO, BMP, MG #### [address] Erythrocyte distribution width (RBC) [Ratio] 14.5 % Normal 12.0-14.8 [facility] Comment on above: Performed By: #### C BCNO, BMP, MG #### [address] Hematocrit (Bld) [Volume fraction] 41.1 % Normal 38.8-50.0 [facility] Comment on above: Performed By: #### C BCNO, BMP, MG #### [address] Hemoglobin (Bld) [Mass/Vol] 13.8 g/dL Normal 13.0-17.0 [facility] Comment on above: Performed By: #### C BCNO, BMP, MG #### [address] Lymphocytes (Bld) [#/Vol] 1.6 10*3/uL Normal 1.00-4.8 [facility] Comment on above: Performed By: #### C BCNO, BMP, MG #### [place] [address] [place] Lymphocytes/100 WBC (Bld) 23.7 % Normal . [facility] Comment on above: Performed By: #### C BCNO, BMP, MG #### [address] MCH (RBC) [Entitic mass] 30.9 pg Normal 27.5-35.2 [facility] Comment on above: Performed By: #### C BCNO, BMP, MG #### [address] MCV (RBC) [Entitic vol] 91.7 fL Normal 83.5-101 [facility] Comment on above: Performed By: #### C BCNO, BMP, MG #### [address] Mean Corpuscular HGB Conc 33.7 g/dL Normal 32.5-35.6 [facility] Comment on above: Performed By: #### C BCNO, BMP, MG #### [address] Monocytes (Bld) [#/Vol] 1.2 10*3/uL High 0.0-0.8 [facility] Comment on above: Performed By: #### C BCNO, BMP, MG #### [address] Monocytes/100 WBC (Bld) 20.43 % High 0.00-20.00 [facility] Comment on above: Result Comment: For adults in ED, MDW > 20.0 may be associated with a higher risk of sepsis during the first 12 hrs of hospital admission Performed By: #### C BCNO, BMP, MG #### [address] Monocytes/100 WBC (Bld) 17.3 % Normal . [facility] Comment on above: Performed By: #### C BCNO, BMP, MG #### [address] Neutrophils (Bld) [#/Vol] 3.9 10*3/uL Normal 1.8-7.7 [facility] Comment on above: Performed By: #### C BCNO, BMP, MG #### [address] Neutrophils/100 WBC (Bld) 58.1 % Normal . [facility] Comment on above: Performed By: #### C BCNO, BMP, MG #### [address] NRBC% 0.1 /100{WBC} Normal 0-0.5 [facility] Comment on above: Performed By: #### C BCNO, BMP, MG #### [address] Platelet mean volume (Bld) [Entitic vol] 8.8 fL Normal 6.6-10.1 [facility] Comment on above: Performed By: #### C BCNO, BMP, MG #### [address] Platelets (Bld) [#/Vol] 169 10*3/uL Normal 150-450 [facility] Comment on above: Performed By: #### C BCNO, BMP, MG #### [address] RBC (Bld) [#/Vol] 4.48 10*6/uL Normal 3.90-5.60 [facility] Comment on above: Performed By: #### C BCNO, BMP, MG #### [address] WBC (Bld) [#/Vol] 6.8 10*3/uL Normal 4.1-10.5 [facility] Comment on above: Performed By: #### C BCNO, BMP, MG #### [address] Comprehensive Metabolic Pane stephanie 05-18-2024 Albumin [Mass/Vol] 4.3 g/dL Normal 3.5-5.7 [facility] Comment on above: Performed By: #### C BCNO, BMP, MG #### [address] Albumin/Globulin [Mass ratio] 1.5 {ratio} Normal [facility] Comment on above: Performed By: #### C BCNO, BMP, MG #### [address] ALP [Catalytic activity/Vol] 96 U/L Normal 34-104 [facility] Comment on above: Performed By: #### C BCNO, BMP, MG #### [facility] [address] ALT [Catalytic activity/Vol] 11 U/L Normal 7-52 [facility] Comment on above: Performed By: #### C BCNO, BMP, MG #### [facility] [address] Anion gap [Moles/Vol] 9.3 mmol/L Normal 6.0-15.0 [facility] Comment on above: Performed By: #### C BCNO, BMP, MG #### [facility] [address] AST [Catalytic activity/Vol] 17 U/L Normal 13-39 [facility] Comment on above: Performed By: #### C BCNO, BMP, MG #### [facility] [address] [place] [address] [place] Bilirubin [Mass/Vol] 1.3 mg/dL High 0.3-1.0 [facility] Comment on above: Result Comment: Samp les from patients who have taken Naproxen have shown spurious elevation in Total Bilirubin levels. A metabolite of Naproxen, O-desmethylnaproxen, has been shown to interfere with the Jendrassik-Grof method for measuring Total Bilirubin. Performed By: #### C BCNO, BMP, MG #### [facility] [address] [place] [address] [place] Calcium [Mass/Vol] 9.0 mg/dL Normal 8.6-10.3 [facility] Comment on above: Performed By: #### C BCNO, BMP, MG #### [facility] [address] [place] [id number] [place] Chloride [Moles/Vol] 110 mmol/L High 98-107 [facility] Comment on above: Performed By: #### C BCNO, BMP, MG #### [facility] [address] [place] [address] [place] CO2 [Moles/Vol] 20.6 mmol/L Low 21.0-31.0 [facility] Comment on above: Performed By: #### C BCNO, BMP, MG #### [address] Creatinine [Mass/Vol] 1.33 mg/dL High 0.70-1.30 [facility] Comment on above: Performed By: #### C BCNO, BMP, MG #### [address] Creatinine Clr Calc Pharmacy 46.62 Normal [facility] Comment on above: Performed By: #### C BCNO, BMP, MG #### [address] Estimated GFR 53.700 mL/Min Normal [facility] Comment on above: Performed By: #### C BCNO, BMP, MG #### [address] Globulin (S) [Mass/Vol] 2.8 g/dL Normal [facility] Comment on above: Performed By: #### C BCNO, BMP, MG #### [address] Glucose [Mass/Vol] 119 mg/dL High 70-100 [facility] Comment on above: Result Comment: Arvin Glucose Reference Range is dependent on time and content of last meal. Glucose of more than 200 mg/dL in a nonstressed, ambulatory subject supports the diagnosis of Diabetes Mellitus. ADA recommended reference range Performed By: #### C BCNO, BMP, MG #### [address] Potassium [Moles/Vol] 3.9 mmol/L Normal 3.5-5.1 [facility] Comment on above: Performed By: #### C BCNO, BMP, MG #### [address] Protein [Mass/Vol] 7.1 g/dL Normal 6.4-8.9 [facility] Comment on above: Performed By: #### C BCNO, BMP, MG #### [address] [address] [place] Sodium [Moles/Vol] 136 mmol/L Normal 136-145 [facility] Comment on above: Performed By: #### C BCNO, BMP, MG #### [facility] [address] Urea nitrogen [Mass/Vol] 36 mg/dL High 7-25 [facility] Comment on above: Performed By: #### C BCNO, BMP, MG #### [facility] [address] [place] [address] [place] Creatine Kinaseon 05-18-2024 CK [Catalytic activity/Vol] 163 U/L Normal [address] [facility] Comment on above: Performed By: #### C BCNO, BMP, MG #### [address] Creatine kinase [Enzymatic a ctivity/volume] in Serum or PlasmaOrdered By: Floyd Moseley on 05-18-2024 CK [Catalytic activity/Vol] Creatine kinase [Enzymatic activity/volume] in Serum or Plasma 30 [facility] Creatinine [Mass/volume] in Serum or PlasmaOrdered By: Flyod Moseley on 05-18-2024 Creatinine [Mass/Vol] Creatinine [Mass/volume] in Serum or Plasma High 0.70-1.30 [facility] Dipstick and Microscopicon 0 05-18-2024 Appearance (U) Clear Normal Clear [facility] Comment on above: Order Comment: Name Collection Type:: Clean-Voided Midstream Performed By: #### C BCNO, BMP, MG #### [address] Bacteria,Urine None Seen Normal None Seen [facility] Comment on above: Order Comment: Name Collection Type:: Clean-Voided Midstream Performed By: #### C BCNO, BMP, MG #### [address] Bilirubin,Urine Negative Normal Negative [facility] Comment on above: Order Comment: Name Collection Type:: Clean-Voided Midstream Performed By: #### C BCNO, BMP, MG #### [address] [address] [place] Color (U) Yellow Normal Yellow [facility] Comment on above: Order Comment: Name Collection Type:: Clean-Voided Midstream Performed By: #### C BCNO, BMP, MG #### [address] Glucose Ql (U) Normal Normal Normal [facility] Comment on above: Order Comment: Name Collection Type:: Clean-Voided Midstream Performed By: #### C BCNO, BMP, MG #### [place] [address] [place] Hyaline Casts,Urine 0-8 Normal 0-8 [facility] Comment on above: Order Comment: Name Collection Type:: Clean-Voided Midstream Performed By: #### C BCNO, BMP, MG #### [address] Ketones Ql (U) 1+ High Negative [facility] Comment on above: Order Comment: Name Collection Type:: Clean-Voided Midstream Performed By: #### C BCNO, BMP, MG #### [address] Leukocyte esterase Test strip Ql (U) Negative Normal Negative [facility] Comment on above: Order Comment: Name Collection Type:: Clean-Voided Midstream Performed By: #### C BCNO, BMP, MG #### [place] [address] [place] Mucus,Urine 1+ Critically abnormal [facility] Comment on above: Order Comment: Name Collection Type:: Clean-Voided Midstream Result Comment: PERF ORMED BY: [place] [address] PATHOLOGIST [employer]ET[employer] EXECUTIVE JOSUE DAMON M.D. Performed By: #### C BCNO, BMP, MG #### [place] [address] [place] Nitrite,Urine Negative Normal Negative [facility] Comment on above: Order Comment: Name Collection Type:: Clean-Voided Midstream Performed By: #### C BCNO, BMP, MG #### [address] Occult Blood,Urine Trace High Negative [facility] Comment on above: Order Comment: Name Collection Type:: Clean-Voided Midstream Result Comment: PERF ORMED BY: [place] [address] PATHOLOGIST [employer]MA[employer] MARKET[employer] EXECUTIVE JOSUE DAMON M.D. Performed By: #### C BCNO, BMP, MG #### [address] pH (U) 5.5 [pH] Normal 5.0-9.0 [facility] Comment on above: Order Comment: Name Collection Type:: Clean-Voided Midstream Performed By: #### C BCNO, BMP, MG #### [address] Protein (U) [Mass/Vol] 100 mg/dL High Negative [facility] Comment on above: Order Comment: Name Collection Type:: Clean-Voided Midstream Performed By: #### C BCNO, BMP, MG #### [address] RBC,Urine 1-2 Normal 0-4 [facility] Comment on above: Order Comment: Name Collection Type:: Clean-Voided Midstream Performed By: #### C BCNO, BMP, MG #### [address] Specificy [place],Urine 1.026 Normal 1.001-1.030 [facility] Comment on above: Order Comment: Name Collection Type:: Clean-Voided Midstream Performed By: #### C BCNO, BMP, MG #### [address] Squamous Epithelial Cell,Urine 1-2 Normal 0-2 [facility] Comment on above: Order Comment: Name Collection Type:: Clean-Voided Midstream Performed By: #### C BCNO, BMP, MG #### [address] Urobilinogen,Urine Normal Normal Normal [facility] Comment on above: Order Comment: Name Collection Type:: Clean-Voided Midstream Performed By: #### C BCNO, BMP, MG #### [address] WBC,Urine 3-4 Normal 0-4 [facility] Comment on above: Order Comment: Name Collection Type:: Clean-Voided Midstream Performed By: #### C BCNO, BMP, MG #### [facility] [address] [place] [address] ECG 12 lead ECGon 05-18-2024 ECG 12 lead ECG [facility] [place] [address] [place] [address] Electrocardiograph Report Signed Patient: Des Jacob MR#: [id number] : 1940 Acct:[id number] Age/Sex: 83 / M ADM Date: 05/18/24 Loc: ER Room: Type: [facility] ER Attending Dr: Ordering Provider: Floyd [...] Floyd Moseley MD 11/05 0139 Normal [facility] Eosinophils Auto (Bld) [#/Vo l]Ordered By: Floyd Moseley on 05-18-2024 Eosinophils (Bld) [#/Vol] Automated eosinophil count 0.0-0.45 [facility] Eosinophils/100 WBC Auto (Bl d)Ordered By: Floyd Moseley on 05-18-2024 Eosinophils/100 WBC (Bld) Automated eosinophil % . [facility] Epithelial cells.squamous [# /area] in Urine sediment by Automated countOrdered By: Floyd Moseley on 05-18-2024 Epithelial cells.squamous Auto (Urine sed) [#/Area] Epithelial cells.squamous [#/area] in Urine sediment by Automated count 0-2 [facility] Erythrocyte distribution wid th Auto (RBC) [Ratio]Ordered By: Floyd Moseley on 05-18-2024 Erythrocyte distribution width (RBC) [Ratio] Erythrocyte distribution width [Ratio] by Automated count 12.0-14.8 [facility] Erythrocytes [#/area] in Uri ne sediment by Automated countOrdered By: Floyd Moseley on 05-18-2024 RBC Auto (Urine sed) [#/Area] Erythrocytes [#/area] in Urine sediment by Automated count 0-4 [facility] Globulin Calc (S) [Mass/Vol] Ordered By: Floyd Moseley on 05-18-2024 Globulin (S) [Mass/Vol] Serum globulin measurement by calculation (mass/volume) [facility] Glucose Glucometer (BldC) [M ass/Vol]Ordered By: Floyd Moseley on 05-18-2024 Glucose [Mass/Vol] Capillary blood glucose measurement by glucometer (mass/volume) [facility] Comment on above: Random Glucose Refer ence Range is dependent on time and content of last meal. Glucose of more than 200 mg/dL in a nonstressed, ambulatory subject supports the diagnosis of Diabetes Mellitus. Glucose Poct Glucometerson 0 05-18-2024 Commemt1 Glu2: Cleaned Meter Normal [facility] Comment on above: Result Comment: PERF ORMED BY: [facility] [address] [address] PATHOLOGIST [employer] MARKET[employer] EXECUTIVE JOSUE DAMON M.D. Performed By: #### G LULS #### Point of Care testing , Glucose [Mass/Vol] 115 mg/dL Normal [facility] Comment on above: Result Comment: Arvin om Glucose Reference Range is dependent on [...] ] in Serum or Plasma High 70-100 [facility] Comment on above: ADA recommended refe [...] [Mass/volume] in Urine by Test strip Normal [facility] Hematocrit Auto (Bld) [Volum e fraction]Ordered By: Floyd Moseley on 05-18-2024 Hematocrit (Bld) [Volume fraction] Hematocrit [Volume Fraction] of Blood by Automated count 38.8-50.0 [facility] Hemoglobin Test strip Ql (U) Ordered By: Floyd Moseley on 05-18-2024 Hemoglobin Ql (U) Hemoglobin [Presence ] in Urine by Test strip High Negative [facility] Hemoglobin [Mass/volume] in BloodOrdered By: Floyd Moseley on 05-18-2024 Hemoglobin (Bld) [Mass/Vol] Hemoglobin [Mass/volume] in Blood 13.0-17.0 [facility] Hyaline casts [#/area] in Ur ine sediment by Automated countOrdered By: Floyd Moseley on 05-18-2024 Hyaline casts Auto (Urine sed) [#/Area] Hyaline casts [#/area] in Urine sediment by Automated count 0-8 [facility] [facility] Ketones Test strip Ql (U)Ord ered By: Floyd Moseley on 05-18-2024 Ketones Ql (U) Ketones [Presence] i n Urine by Test strip High Negative [facility] Lactate [Moles/volume] in Se rum or PlasmaOrdered By: Floyd Moseley on 05-18-2024 Lactate [Moles/Vol] Lactate [Moles/volume] in Serum or Plasma 0.5-1.9 [facility] Comment on above: Lactic Acid referenc e range has been updated to 0.5 1.9 mmol/L and the critical range of 2.0 or greater. Lactic Acidon 05-18-2024 Lactate [Moles/Vol] 1.4 mmol/L Normal 0.5-1.9 [facility] Comment on above: Result Comment: Lact ic Acid reference range has been updated to 0.5 ? 1.9 mmol/L and the critical range of 2.0 or greater. PERFORMED BY: [place] [address] PATHOLOGIST [employer] EXECUTIVE JOSUE DAMON M.D. Performed By: #### C BCNO, BMP, MG #### [address] Leukocyte esterase [Presence ] in Urine by Test stripOrdered By: Floyd Moseley on 05-18-2024 Leukocyte esterase Test strip Ql (U) Leukocyte esterase [Presence] in Urine by Test strip Negative [facility] Leukocytes [#/area] in Urine sediment by Automated countOrdered By: Floyd Moseley on 05-18-2024 WBC Auto (Urine sed) [#/Area] Leukocytes [#/area] in Urine sediment by Automated count 0-4 [facility] Leukocytes [#/volume] correc marimar for nucleated erythrocytes in Blood by Automated counOrdered By: Floyd Moseley on 05-18-2024 WBC corrected for nucl RBC Auto (Bld) [#/Vol] Leukocytes [#/volume] corrected for nucleated erythrocytes in Blood by Automated coun 4.1-10.5 [facility] Lymphocytes Auto (Bld) [#/Vo l]Ordered By: Floyd Moseley on 05-18-2024 Lymphocytes (Bld) [#/Vol] Lymphocytes [#/volume] in Blood by Automated count 1.00-4.8 [facility] Lymphocytes/100 WBC Auto (Bl d)Ordered By: Floyd Moseley on 05-18-2024 Lymphocytes/100 WBC (Bld) Lymphocytes/100 leukocytes in Blood by Automated count . [facility] MCH Auto (RBC) [Entitic mass ]Ordered By: Floyd Moseley on 05-18-2024 MCH (RBC) [Entitic mass] MCH [Entitic mass] by Automated count 27.5-35.2 [facility] MCHC Auto (RBC) [Mass/Vol]Or dered By: Floyd Moseley on 05-18-2024 MCHC (RBC) [Mass/Vol] MCHC [Mass/volume] by Automated count 32.5-35.6 [facility] MCV Auto (RBC) [Entitic vol] Ordered By: Floyd Moseley on 05-18-2024 MCV (RBC) [Entitic vol] MCV [Entitic vol ume] by Automated count 83.5-101 [facility] Magnesiumon 05-18-2024 Magnesium [Mass/Vol] 2.0 mg/dL Normal 1.9-2.7 [facility] Comment on above: Performed By: #### C BCNO, BMP, MG #### [facility] [address] [place] [address] Magnesium [Mass/volume] in S grady or PlasmaOrdered By: Floyd Moseley on 05-18-2024 Magnesium [Mass/Vol] Magnesium [Mass/volume] in Serum or Plasma 1.9-2.7 [facility] Monocyte distribution width [Entitic volume] in Blood by AutomatedOrdered By: Floyd Moseley on 05-18-2024 Monocyte distribution width Auto (Bld) [Entitic vol] Monocyte distribution width [Entitic volume] in Blood by Automated High 0.00-20.00 [facility] Comment on above: For adults in ED, MD W > 20.0 may be associated with a higher risk of sepsis during the first 12 hrs of hospital admission Monocytes Auto (Bld) [#/Vol] Ordered By: Floyd Moseley on 05-18-2024 Monocytes (Bld) [#/Vol] Automated blood monocyte count High 0.0-0.8 [facility] Monocytes/100 WBC Auto (Bld) Ordered By: Floyd Moseley on 05-18-2024 Monocytes/100 WBC (Bld) Automated monocyte % . [facility] Mucus [Presence] in Urine by AutomatedOrdered By: Floyd Moseley on 05-18-2024 Mucus Auto Ql (U) Mucus [Presence] in Urine by Automated Abnormal [facility] Neutrophils Auto (Bld) [#/Vo l]Ordered By: Floyd Moseley on 05-18-2024 Neutrophils (Bld) [#/Vol] Neutrophils [#/volume] in Blood by Automated count 1.8-7.7 [facility] Neutrophils/100 WBC Auto (Bl d)Ordered By: Floyd Moseley on 05-18-2024 Neutrophils/100 WBC (Bld) Automated neutrophil % . [facility] Nitrite Test strip Ql (U)Ord ered By: Floyd Moseley on 05-18-2024 Nitrite Ql (U) Nitrite [Presence] i n Urine by Test strip Negative [facility] No Panel InformationOrdered By: Floyd Moseley on 05-18-2024 Bedside Glucose Comment Glu2: cleaned meter [facility] Estimated GFR (CKD-EPI) 53.700 mL/Min [facility] Creatinine Clearance (Chem 46.62 [facility] Nucleated erythrocytes [Pres ence] in Blood by Automated countOrdered By: Floyd Moseley on 05-18-2024 Nucleated RBC Auto Ql (Bld) Nucleated erythrocytes [Presence] in Blood by Automated count 0-0.5 [facility] Platelet mean volume Auto (B ld) [Entitic vol]Ordered By: Floyd Moseley on 05-18-2024 Platelet mean volume (Bld) [Entitic vol] Platelet mean volume [Entitic volume] in Blood by Automated count 6.6-10.1 [facility] Platelets Auto (Bld) [#/Vol] Ordered By: Floyd Moseley on 05-18-2024 Platelets (Bld) [#/Vol] Platelets [#/vol ume] in Blood by Automated count 150-450 [facility] Potassium [Moles/volume] in Serum or PlasmaOrdered By: Floyd Moseley on 05-18-2024 Potassium [Moles/Vol] Potassium [Moles/volume] in Serum or Plasma 3.5-5.1 [facility] Protein Test strip (U) [Mass /Vol]Ordered By: Floyd Moseley on 05-18-2024 Protein (U) [Mass/Vol] Protein [Mass/vol ume] in Urine by Test strip High Negative [facility] Protein [Mass/volume] in Ser um or PlasmaOrdered By: Floyd Moseley on 05-18-2024 Protein [Mass/Vol] Protein [Mass/volume ] in Serum or Plasma 6.4-8.9 [facility] RBC Auto (Bld) [#/Vol]Ordere d By: Floyd Moseley on 05-18-2024 RBC (Bld) [#/Vol] Erythrocytes [#/volume] in Blood by Automated count 3.90-5.60 [facility] Respiratory specimen influen za A virus, influenza B virus, respiratory syncytical virOrdered By: Floyd Moseley on 05-18-2024 SARS-CoV-2 (COVID-19) RNA ROSEMARIE+probe Ql (Unsp spec) Respiratory specimen influenza A virus, influenza B virus, respiratory syncytical vir [facility] Serum or plasma albumin/glob ulin mass ratioOrdered By: Floyd Moseley on 05-18-2024 Albumin/Globulin [Mass ratio] Serum or plasma albumin/globulin mass ratio [facility] Serum or plasma anion gap de terminationOrdered By: Floyd Moseley on 05-18-2024 Anion gap [Moles/Vol] Serum or plasma an ion gap determination 6.0-15.0 [facility] Sodium [Moles/volume] in Ser um or PlasmaOrdered By: Floyd Moseley on 05-18-2024 Sodium [Moles/Vol] Sodium [Moles/volume ] in Serum or Plasma 136-145 [facility] Specific gravity Test strip (U) [Rel density]Ordered By: Floyd Moseley on 05-18-2024 Specific gravity (U) [Rel density] Specific gravity of Urine by Test strip 1.001-1.030 [facility] Thyroid Stimulating Hormoneo n 05-18-2024 TSH Qn 1.91 m[IU]/L Normal 0.45-5.33 [facility] Comment on above: Result Comment: PERF ORMED BY: [place] [address] PATHOLOGIST [employer] EXECUTIVE JOSUE DAMON M.D. Performed By: #### C BCNO, BMP, MG #### [address] Thyrotropin [Units/volume] i n Serum or PlasmaOrdered By: Floyd Moseley on 05-18-2024 TSH Qn Thyrotropin [Units/volume] in Serum or Plasma 0.45-5.33 [facility] Troponin I High Sensitivityo n 05-18-2024 Troponin I High Sensitivity 11 Normal 0-20 [facility] Comment on above: Result Comment: The Troponin units of report have been changed to meet the Chest Pain Accreditation requirement, element EC5.M1l2. Troponin units are changed from pg/ml to ng/L. Also, the decimal is removed and results are in whole numbers. PERFORMED BY: [place] [address] PATHOLOGIST [employer] EXECUTIVE JOSUE DAMON M.D. Performed By: #### C BCNO, BMP, MG #### [facility] [address] Troponin I.cardiac [Mass/vol ume] in Serum or Plasma by Detection limit <= 0.01 ng/Ordered By: Floyd Moseley on 05-18-2024 Troponin I.cardiac DL <= 0.01 ng/mL [Mass/Vol] Troponin I.cardiac [Mass/volume] in Serum or Plasma by Detection limit <= 0.01 ng/ 0-20 [facility] Comment on above: The Troponin units [...] [Mass/volume] in Serum or Plasma High 7-25 [facility] Urobilinogen Test strip (U) [Mass/Vol]Ordered By: Floyd Moseley on 05-18-2024 Urobilinogen (U) [Mass/Vol] Urobilinogen [Mass/volume] in Urine by Test strip Normal [facility] WBC Auto (Bld) [#/Vol]Ordere d By: Floyd Moseley on 05-18-2024 WBC (Bld) [#/Vol] Leukocytes [#/volume ] in Blood by Automated count 4.1-10.5 [facility] X-ray reportOrdered By: Katherine Michael on 05-18-2024 Study report [facility] [place] [address] [place] [address] XRay Report Signed Patient: Des Jacob MR#: [id number] : 1940 Acct:[id number] Age/Sex: 83 / M ADM Date: 5 Loc: ER Room: Type: [facility] ER Attending Dr: Copies to: Floyd Moseley [...] Aurelia Michael M.D.05/18/2024 7:44 PM Dictation Location: [place] [address] Transcribed By: APOLINAR 05/18/241943 Dictated By: Aurelia Michael MD 05/18/241940 Signed By: 05/18/241943 [facility] Work Phone: XR chest 1V portableon 05-18 XR chest 1V portable [facility] [place] [address] [place] [address] XRay Report Signed Patient: Des Jacob MR#: [id number] : 1940 Acct:[id number] Age/Sex: 83 / M ADM Date: 05/18/24 Loc: ER Room: Type: [facility] ER Attending Dr: Copies to: Floyd Moseley [...] Aurelia Michael M.D.05/18/2024 7:44 PM Dictation Location: [place] [address] Transcribed By: APOLINAR 05/18/241943 Dictated By: Aurelia Michael MD 05/18/241940 Signed By: 05/18/241943 Normal [facility] pH Test strip (U)Ordered By: Floyd Moseley on 05-18-2024 pH (U) pH of Urine by Test strip 5.0-9.0 [facility] Cryotherapy, skin lesionon 0 05-17-2024 [facility] Cryotherapy, skin lesionOrde red By: Jaz Jim on 05-17-2024 [facility] Work Phone: Hemoglobin a1c with eagon Glucose [Mass/Vol] 131 mg/dL [facility] HbA1c (Bld) [Mass fraction] 6.2 % High 4.3 - 5.6 % [facility] Comment on above: Increased risk for d iabetes: 5.7 - 6.4 diabetes: >6.4 glycemic control for adults with diabetes: <7.0 Interpretation and review of laboratory results Abnormal [facility] A1C with Estimated Average G luon 02-27-2024 Glucose [Mass/Vol] 131 mg/dL Normal [facility] Comment on above: Result Comment: PERF ORMED BY: [place] [address] PATHOLOGIST [employer] EXECUTIVE JOSUE DAMON M.D. Performed By: #### C BCNO, BMP, MG #### [facility] [address] [place] [address] HbA1c (Bld) [Mass fraction] 6.2 % High 4.3-5.6 [facility] Comment on above: Result Comment: Incr eased risk for diabetes: 5.7 - 6.4 diabetes: >6.4 glycemic control for adults with diabetes: <7.0 Performed By: #### C BCNO, BMP, MG #### [facility] [address] [place] [address] Alanine aminotransferase [En zymatic activity/volume] in Serum or PlasmaOrdered By: Phani Ambrocio on 02-27-2024 ALT [Catalytic activity/Vol] Alanine aminotransferase [Enzymatic activity/volume] in Serum or Plasma 7-52 [facility] Albumin [Mass/volume] in Ser um or Plasma by Bromocresol green (BCG) dye binding methoOrdered By: Phani Ambrocio on 02-27-2024 Albumin BCG dye [Mass/Vol] Albumin [Mass/volume] in Serum or Plasma by Bromocresol green (BCG) dye binding metho 3.5-5.7 [facility] Alkaline phosphatase [Enzyma tic activity/volume] in Serum or PlasmaOrdered By: Phani Ambrocio on 02-27-2024 ALP [Catalytic activity/Vol] Alkaline phosphatase [Enzymatic activity/volume] in Serum or Plasma 34-104 [facility] Aspartate aminotransferase [ Enzymatic activity/volume] in Serum or PlasmaOrdered By: Phani Ambrocio on 02-27-2024 AST [Catalytic activity/Vol] Aspartate aminotransferase [Enzymatic activity/volume] in Serum or Plasma Low 13-39 [facility] Basophils Auto (Bld) [#/Vol] Ordered By: Phani Ambrocio on 02-27-2024 Basophils (Bld) [#/Vol] Automated basoph il count 0.0-0.2 [facility] Basophils/100 WBC Auto (Bld) Ordered By: Phani Ambrocio on 02-27-2024 Basophils/100 WBC (Bld) Automated basophil % . [facility] Bilirubin.total [Mass/volume ] in Serum or PlasmaOrdered By: Phani Ambrocio on 02-27-2024 Bilirubin [Mass/Vol] Bilirubin.total [Mass/volume] in Serum or Plasma 0.3-1.0 [facility] Blood estimated average gluc ose determination by estimation from glycated hemoglobinOrdered By: Phani Ambrocio on 02-27-2024 Average glucose Estimated from glycated hemoglobin (Bld) [Mass/Vol] Glucose mean value [Mass/volume] in Blood Estimated from glycated hemoglobin [facility] CBC W Auto Differential pane l (Bld)on 02-27-2024 Basophils (Bld) [#/Vol] 0 10*3/uL 0.0 - 0.2 10*3/uL [facility] Basophils/100 WBC Manual cnt (Syn fld) 0.6 % . [facility] Eosinophils (Bld) [#/Vol] 0.2 10*3/uL 0.0 - 0.45 10*3/uL [facility] Eosinophils/100 WBC Manual cnt (Syn fld) 2.4 % . [facility] Erythrocyte distribution width (RBC) [Ratio] 14.3 % 12.0 - 14.8 % [facility] Hematocrit (Bld) [Volume fraction] 38.3 % Low 38.8 - 50.0 % [facility] Hemoglobin (Bld) [Mass/Vol] 12.8 g/dL Low 13.0 - 17.0 g/dL [facility] Interpretation and review of laboratory results Abnormal [facility] Lymphocytes (Bld) [#/Vol] 2 10*3/uL 1.00 - 4.8 10*3/uL [facility] Lymphocytes/100 WBC Manual cnt (Syn fld) 31.4 % . [facility] MCH (RBC) [Entitic mass] 31 pg 27.5 - 35.2 pg [facility] MCHC (RBC) [Mass/Vol] 33.3 g/dL 32.5 - 35.6 g/dL [facility] MCV (RBC) [Entitic vol] 92.9 fL 83.5 - 101 fL [facility] Monocytes (Bld) [#/Vol] 0.7 10*3/uL 0.0 - 0.8 10*3/uL [facility] Monocytes+Macrophages/1 00 WBC Manual cnt (Syn fld) 10.3 % . [facility] Neutrophils (Bld) [#/Vol] 3.5 10*3/uL 1.8 - 7.7 10*3/uL [facility] Neutrophils/100 WBC Manual cnt (Syn fld) 55.3 % . [facility] NRBC 0.1 /100{WBC} 0 - 0.5 /100{WBC} [facility] Platelet mean volume (Bld) [Entitic vol] 9.4 fL 6.6 - 10.1 fL [facility] Platelets (Bld) [#/Vol] 175 10*3/uL 150 - 450 10*3/uL [facility] RBC LM.HPF (Urine sed) [#/Area] 4.13 10*6/uL 3.90 - 5.60 10*6/uL [facility] WBC (Bld) [#/Vol] 6.4 10*3/uL 4.1 - 10.5 10*3/uL [facility] WBC LM.HPF (Urine sed) [#/Area] 6.4 10*3/uL 4.1 - 10.5 10*3/uL [facility] Calcium [Mass/volume] in Ser um or PlasmaOrdered By: Phani Ambrocio on 02-27-2024 Calcium [Mass/Vol] Calcium [Mass/volume ] in Serum or Plasma 8.6-10.3 [facility] Carbon dioxide, total [Moles /volume] in Serum or PlasmaOrdered By: Phani Ambrocio on 02-27-2024 CO2 [Moles/Vol] Carbon dioxide, tota l [Moles/volume] in Serum or Plasma 21.0-31.0 [facility] Chloride [Moles/volume] in S grady or PlasmaOrdered By: Phani Ambrocio on 02-27-2024 Chloride [Moles/Vol] Chloride [Moles/volume] in Serum or Plasma High 98-107 [facility] Cholesterol [Mass/volume] in Serum or PlasmaOrdered By: Phani Abmrocio on 02-27-2024 Cholesterol [Mass/Vol] Cholesterol [Mass/volume] in Serum or Plasma Low 140-200 [facility] Comment on above: Chol less than 200 m g/dl low riskChol 201-239 mg/dl borderline riskChol 240 mg/dl and greater high risk Cholesterol in HDL [Mass/vol ume] in Serum or PlasmaOrdered By: Phani Ambrocio on 02-27-2024 Cholesterol in HDL [Mass/Vol] Serum or plasma high density lipoprotein (HDL) cholesterol measurement 23-92 [facility] Comment on above: HDL CHOL ATP-III CLA SSIFICATION Cardiovascular RiskHDL > or equal to 60 mg/dL LOWHDL < 40 mg/dL HIGH Cholesterol in LDL Calc [Mas s/Vol]Ordered By: Phani Ambrocio on 02-27-2024 Cholesterol in LDL [Mass/Vol] Cholesterol in LDL [Mass/volume] in Serum or Plasma by calculation 0-100 [facility] Comment on above: LDL ATP III CLASSIFI CATIONLDL less than 100 mg/dL OptimalLDL 100-129 mg/dL Near or above optimalLDL 130-159 mg/dL Borderline highLDL 160-189 mg/dL HighLDL greater than 189 mg/dL Very high Cholesterol in VLDL Calc [Ma ss/Vol]Ordered By: Phani Ambrocio on 02-27-2024 Cholesterol in VLDL [Mass/Vol] Cholesterol in VLDL [Mass/volume] in Serum or Plasma by calculation [facility] Complete Blood Count Auto Di ffon 02-27-2024 Basophils (Bld) [#/Vol] 0.0 10*3/uL Normal 0.0-0.2 [facility] Comment on above: Result Comment: PERF ORMED BY: [facility] [address] [place] [address] PATHOLOGIST [employer] EXECUTIVE JOSUE DAMON M.D. Performed By: #### G LULS #### Point of Care testing , Basophils/100 WBC (Bld) 0.6 % Normal . [facility] Comment on above: Performed By: #### G LULS #### Point of Care testing , Eosinophils (Bld) [#/Vol] 0.2 10*3/uL Normal 0.0-0.45 [facility] Comment on above: Performed By: #### G LULS #### Point of Care testing , Eosinophils/100 WBC (Bld) 2.4 % Normal . [facility] Comment on above: Performed By: #### G LULS #### Point of Care testing , Erythrocyte distribution width (RBC) [Ratio] 14.3 % Normal 12.0-14.8 [facility] Comment on above: Performed By: #### G LULS #### Point of Care testing , Hematocrit (Bld) [Volume fraction] 38.3 % Low 38.8-50.0 [facility] Comment on above: Performed By: #### G LULS #### Point of Care testing , Hemoglobin (Bld) [Mass/Vol] 12.8 g/dL Low 13.0-17.0 [facility] Comment on above: Performed By: #### G LULS #### Point of Care testing , Lymphocytes (Bld) [#/Vol] 2.0 10*3/uL Normal 1.00-4.8 [facility] Comment on above: Performed By: #### G LULS #### Point of Care testing , Lymphocytes/100 WBC (Bld) 31.4 % Normal . [facility] Comment on above: Performed By: #### G LULS #### Point of Care testing , MCH (RBC) [Entitic mass] 31.0 pg Normal 27.5-35.2 [facility] Comment on above: Performed By: #### G LULS #### Point of Care testing , MCV (RBC) [Entitic vol] 92.9 fL Normal 83.5-101 [facility] Comment on above: Performed By: #### G LULS #### Point of Care testing , Mean Corpuscular HGB Conc 33.3 g/dL Normal 32.5-35.6 [facility] Comment on above: Performed By: #### G LULS #### Point of Care testing , Monocytes (Bld) [#/Vol] 0.7 10*3/uL Normal 0.0-0.8 [facility] Comment on above: Performed By: #### G LULS #### Point of Care testing , Monocytes/100 WBC (Bld) 10.3 % Normal . [facility] Comment on above: Performed By: #### G LULS #### Point of Care testing , Neutrophils (Bld) [#/Vol] 3.5 10*3/uL Normal 1.8-7.7 [facility] Comment on above: Performed By: #### G LULS #### Point of Care testing , Neutrophils/100 WBC (Bld) 55.3 % Normal . [facility] Comment on above: Performed By: #### G LULS #### Point of Care testing , NRBC% 0.1 /100{WBC} Normal 0-0.5 [facility] Comment on above: Performed By: #### G LULS #### Point of Care testing , Platelet mean volume (Bld) [Entitic vol] 9.4 fL Normal 6.6-10.1 [facility] Comment on above: Performed By: #### G LULS #### Point of Care testing , Platelets (Bld) [#/Vol] 175 10*3/uL Normal 150-450 [facility] Comment on above: Performed By: #### G JUAN #### Point of Care testing , RBC (Bld) [#/Vol] 4.13 10*6/uL Normal 3.90-5.60 [facility] Comment on above: Performed By: #### G ANETTELS #### Point of Care testing , WBC (Bld) [#/Vol] 6.4 10*3/uL Normal 4.1-10.5 [facility] Comment on above: Performed By: #### G JUAN #### Point of Care testing , Comprehensive Metabolic Pane stephanie 02-27-2024 Albumin [Mass/Vol] 3.9 g/dL Normal 3.5-5.7 [facility] Comment on above: Performed By: #### C BCNO, BMP, MG #### [facility] [address] Albumin/Globulin [Mass ratio] 1.9 {ratio} Normal [facility] Comment on above: Performed By: #### C BCNO, BMP, MG #### [facility] [address] [place] [address] [place] ALP [Catalytic activity/Vol] 97 U/L Normal 34-104 [facility] Comment on above: Performed By: #### C BCNO, BMP, MG #### [facility] [address] [place] [id number] [place] ALT [Catalytic activity/Vol] 8 U/L Normal 7-52 [facility] Comment on above: Performed By: #### C BCNO, BMP, MG #### [facility] [address] [place] [id number] [place] Anion gap [Moles/Vol] 10.5 mmol/L Normal 6.0-15.0 [facility] Comment on above: Performed By: #### C BCNO, BMP, MG #### [facility] [address] [place] [id number] [place] AST [Catalytic activity/Vol] 11 U/L Low 13-39 [facility] Comment on above: Performed By: #### C BCNO, BMP, MG #### [facility] [address] Bilirubin [Mass/Vol] 0.8 mg/dL Normal 0.3-1.0 [facility] Comment on above: Performed By: #### C BCNO, BMP, MG #### [facility] [address] Calcium [Mass/Vol] 8.7 mg/dL Normal 8.6-10.3 [facility] Comment on above: Performed By: #### C BCNO, BMP, MG #### [address] Chloride [Moles/Vol] 108 mmol/L High 98-107 [facility] Comment on above: Performed By: #### C BCNO, BMP, MG #### [address] CO2 [Moles/Vol] 28.1 mmol/L Normal 21.0-31.0 [facility] Comment on above: Performed By: #### C BCNO, BMP, MG #### [place] [address] [place] Creatinine [Mass/Vol] 1.10 mg/dL Normal 0.70-1.30 [facility] Comment on above: Performed By: #### C BCNO, BMP, MG #### [address] GFR/1.73 sq M.predicted MDRD (S/P/Bld) [Vol rate/Area] mL/min/{1.73_m2} Normal [facility] Comment on above: Performed By: #### C BCNO, BMP, MG #### [place] [address] [place] Globulin (S) [Mass/Vol] 2.1 g/dL Normal [facility] Comment on above: Performed By: #### C BCNO, BMP, MG #### [place] [address] [place] Glucose [Mass/Vol] 129 mg/dL High 70-100 [facility] Comment on above: Result Comment: [facility] Glucose Reference Range is dependent on time and content of last meal. Glucose of more than 200 mg/dL in a nonstressed, ambulatory subject supports the diagnosis of Diabetes Mellitus. ADA recommended reference range Performed By: #### C BCNO, BMP, MG #### [facility] [address] Potassium [Moles/Vol] 4.6 mmol/L Normal 3.5-5.1 [facility] Comment on above: Performed By: #### C BCNO, BMP, MG #### [facility] [address] [place] [id number] [facility] Protein [Mass/Vol] 6.0 g/dL Low 6.4-8.9 [facility] Comment on above: Performed By: #### C BCNO, BMP, MG #### [facility] [address] [place] [id number] [facility] Sodium [Moles/Vol] 142 mmol/L Normal 136-145 [facility] Comment on above: Performed By: #### C BCNO, BMP, MG #### [facility] [address] [place] [id number] [place] Urea nitrogen [Mass/Vol] 31 mg/dL High 7-25 [facility] Comment on above: Performed By: #### C BCNO, BMP, MG #### [facility] [address] [place] [id number] [facility] Comprehensive metabolic pane [facility] 02-27-2024 Albumin [Mass/Vol] 3.9 g/dL 3.5 - 5.7 g/dL [facility] Albumin/Globulin [Mass ratio] 1.9 {ratio} [facility] ALP [Catalytic activity/Vol] 97 U/L 34 - 104 U/L [facility] ALT [Catalytic activity/Vol] 8 U/L 7 - 52 U/L [facility] Anion gap [Moles/Vol] 10.5 mmol/L 6.0 - 15.0 meq/L [facility] AST [Catalytic activity/Vol] 11 U/L Low 13 - 39 U/L [facility] Bilirubin [Mass/Vol] 0.8 mg/dL 0.3 - 1 .0 mg/dL [facility] Calcium [Mass/Vol] 8.7 mg/dL 8.6 - 10. 3 mg/dL [facility] Chloride [Moles/Vol] 108 mmol/L High 98 - 10 7 mmol/L [facility] CO2 [Moles/Vol] 28.1 mmol/L 21.0 - 31.0 mmol/L [facility] Creatinine (U) [Mass/Vol] 1.1 mg/dL 0.70 - 1.30 mg/dL [facility] ESTIMATED GFR mL/Min [facility] Globulin (S) [Mass/Vol] 2.1 g/dL [facility] Glucose [Mass/Vol] 129 mg/dL High 70 - 100 mg/dL [facility] Comment on above: Random Glucose Refer ence Range is dependent on time and content of last meal. Glucose of more than 200 mg/dL in a nonstressed, ambulatory subject supports the diagnosis of Diabetes Mellitus. ADA recommended reference range Potassium [Moles/Vol] 4.6 mmol/L 3.5 - 5.1 mmol/L [facility] Protein [Mass/Vol] 6 g/dL Low 6.4 - 8.9 g/dL [facility] Sodium [Moles/Vol] 142 mmol/L 136 - 145 mmol/L [facility] Urea nitrogen [Mass/Vol] 31 mg/dL High 7 - 25 mg/dL [facility] Creatinine [Mass/volume] in Serum or PlasmaOrdered By: Phani Ambrocio on 02-27-2024 Creatinine [Mass/Vol] Creatinine [Mass/volume] in Serum or Plasma 0.70-1.30 [facility] Creatinine [Mass/volume] in UrineOrdered By: Phani Ambrocio on 02-27-2024 Creatinine (U) [Mass/Vol] Creatinine [Mass/volume] in Urine [facility] Comment on above: No reference range e stablished Eosinophils Auto (Bld) [#/Vo l]Ordered By: Phani Ambrocio on 02-27-2024 Eosinophils (Bld) [#/Vol] Automated eosinophil count 0.0-0.45 [facility] Eosinophils/100 WBC Auto (Bl d)Ordered By: Phani Ambrocio on 02-27-2024 Eosinophils/100 WBC (Bld) Automated eosinophil % . [facility] Erythrocyte distribution wid th Auto (RBC) [Ratio]Ordered By: Phani Ambrocio on 02-27-2024 Erythrocyte distribution width (RBC) [Ratio] Erythrocyte distribution width [Ratio] by Automated count 12.0-14.8 [facility] Globulin Calc (S) [Mass/Vol] Ordered By: Phani Ambrocio on 02-27-2024 Globulin (S) [Mass/Vol] Serum globulin measurement by calculation (mass/volume) [facility] Glucose [Mass/volume] in Ser um or PlasmaOrdered By: Phani Ambrocio on 02-27-2024 Glucose [Mass/Vol] Glucose [Mass/volume ] in Serum or Plasma High 70-100 [facility] Comment on above: ADA recommended refe rence rangeRandom Glucose Reference Range is dependent on time and content of last meal. Glucose of more than 200 mg/dL in a nonstressed, ambulatory subject supports the diagnosis of Diabetes Mellitus. Hematocrit Auto (Bld) [Volum e fraction]Ordered By: Phani Ambrocio on 02-27-2024 Hematocrit (Bld) [Volume fraction] Hematocrit [Volume Fraction] of Blood by Automated count Low 38.8-50.0 [facility] Hemoglobin A1c/Hemoglobin.to david in BloodOrdered By: Phani Ambrocio on 02-27-2024 HbA1c (Bld) [Mass fraction] Hemoglobin A1c percentage High 4.3-5.6 [facility] Comment on above: Increased risk for d iabetes: 5.7 - 6.4diabetes: >6.4glycemic control for adults with diabetes: <7.0 Hemoglobin [Mass/volume] in BloodOrdered By: Phani Ambrocio on 02-27-2024 Hemoglobin (Bld) [Mass/Vol] Hemoglobin [Mass/volume] in Blood Low 13.0-17.0 [facility] Leukocytes [#/volume] correc marimar for nucleated erythrocytes in Blood by Automated counOrdered By: Phani Ambrocio on 02-27-2024 WBC corrected for nucl RBC Auto (Bld) [#/Vol] Leukocytes [#/volume] corrected for nucleated erythrocytes in Blood by Automated coun 4.1-10.5 [facility] Lipid 1996 panelon Cholesterol [Mass/Vol] 111 mg/dL Low 140 - 200 mg/dL [facility] Comment on above: Chol less than 200 m g/dl low risk Chol 201-239 mg/dl borderline risk Chol 240 mg/dl and greater high risk Cholesterol in HDL [Mass/Vol] 53 mg/dL 23 - 92 mg/dL [facility] Comment on above: HDL CHOL ATP-III CLA SSIFICATION Cardiovascular Risk HDL > or equal to 60 mg/dL LOW HDL < 40 mg/dL HIGH Cholesterol.total/Janeen sterol in HDL [Mass ratio] 2.1 {ratio} NINF - 5.0 [facility] LDL CHOLESTEROL,CALCULATED 48 mg/dL 0 - 100 mg/dL [facility] Comment on above: LDL ATP III CLASSIFI CATION LDL less than 100 mg/dL Optimal LDL 100-129 mg/dL Near or above optimal LDL 130-159 mg/dL Borderline high LDL 160-189 mg/dL High LDL greater than 189 mg/dL Very high TRIGLYCERIDE W/REFLEX 49 mg/dL 0 - 14 9 mg/dL [facility] Comment on above: TRIG ATP III CLASSIF ICATION TRIG less than 150 mg/dL Normal TRIG 150-199 mg/dL Borderline high TRIG 200-500 mg/dL High TRIG greater than 500 mg/dL Very high Standard traceable to the Center for Disease Conrtrol and Prevention (CDC) test method. VLDL CHOLESTEROL 9 mg/dL [facility] Lipid Panelon 02-27-2024 Cholesterol [Mass/Vol] 111 mg/dL Low 140-200 [facility] Comment on above: Result Comment: Chol less than 200 mg/dl low risk Chol 201-239 mg/dl borderline risk Chol 240 mg/dl and greater high risk Performed By: #### C BCNO, BMP, MG #### [facility] [address] [place] [id number] [place] Cholesterol in HDL [Mass/Vol] 53 mg/dL Normal 23-92 [facility] Comment on above: Result Comment: HDL CHOL ATP-III CLASSIFICATION Cardiovascular Risk HDL > or equal to 60 mg/dL LOW HDL < 40 mg/dL HIGH Performed By: #### C BCNO, BMP, MG #### [facility] [address] [place] [address] [place] Cholesterol.total/Janeen sterol in HDL [Mass ratio] 2.1 {ratio} Normal <5.0 [facility] Comment on above: Result Comment: PERF ORMED BY: [place] [address] PATHOLOGIST [employer]ET[employer] EXECUTIVE JOSUE DAMON M.D. Performed By: #### C BCNO, BMP, MG #### [address] LDL Cholesterol,Calculated 48 mg/dL Normal 0-100 [facility] Comment on above: Result Comment: LDL ATP III CLASSIFICATION LDL less than 100 mg/dL Optimal LDL 100-129 mg/dL Near or above optimal LDL 130-159 mg/dL Borderline high LDL 160-189 mg/dL High LDL greater than 189 mg/dL Very high Performed By: #### C BCNO, BMP, MG #### [address] Triglyceride w/Reflex 49 mg/dL Normal 0-149 [facility] Comment on above: Result Comment: TRIG ATP III CLASSIFICATION TRIG less than 150 mg/dL Normal TRIG 150-199 mg/dL Borderline high TRIG 200-500 mg/dL High TRIG greater than 500 mg/dL Very high Standard traceable to the Center for Disease Conrtrol and Prevention (CDC) test method. Performed By: #### C BCNO, BMP, MG #### [address] VLDL CHOLESTEROL 9 mg/dL Normal [facility] Comment on above: Performed By: #### C BCNO, BMP, MG #### [address] Lymphocytes Auto (Bld) [#/Vo l]Ordered By: Phani Ambrocio on 02-27-2024 Lymphocytes (Bld) [#/Vol] Lymphocytes [#/volume] in Blood by Automated count 1.00-4.8 [facility] Lymphocytes/100 WBC Auto (Bl d)Ordered By: Phani Ambrocio on 02-27-2024 Lymphocytes/100 WBC (Bld) Lymphocytes/100 leukocytes in Blood by Automated count . [facility] MCH Auto (RBC) [Entitic mass ]Ordered By: Phani Ambrocio on 02-27-2024 MCH (RBC) [Entitic mass] MCH [Entitic mass] by Automated count 27.5-35.2 [facility] MCHC Auto (RBC) [Mass/Vol]Or dered By: Phani Ambrocio on 02-27-2024 MCHC (RBC) [Mass/Vol] MCHC [Mass/volume] by Automated count 32.5-35.6 [facility] MCV Auto (RBC) [Entitic vol] Ordered By: Phani Ambrocio on 02-27-2024 MCV (RBC) [Entitic vol] MCV [Entitic vol ume] by Automated count 83.5-101 [facility] MicroAlb Creat Ratio,Uon Albumin DL <= 20 mg/L (U) [Mass/Vol] 3.2 mg/dL High 0.0-1.8 [facility] Comment on above: Performed By: #### G LULS #### Point of Care testing , Creatinine, Urine (Random) 109.00 mg/dL Normal [facility] Comment on above: Result Comment: No r eference range established Performed By: #### G LULS #### Point of Care testing , Microalbumin/Creatinine Ratio 29.4 mg/g Normal 0.0-30.0 [facility] Comment on above: Result Comment: 30-3 00 mg/g indicates an increased risk for diabetic nephropathy. Greater than 300 mg/g is consistent with clinical nephropathy. (Am. J. Kidney Disease 1995, 25:107) PERFORMED BY: [address] [place] [address] PATHOLOGIST [employer]ET[employer] EXECUTIVE JOSUE DAMON M.D. Performed By: #### G LULS #### Point of Care testing , Microalbumin [Mass/volume] i n UrineOrdered By: Phani Ambrocio on 02-27-2024 Albumin DL <= 20 mg/L (U) [Mass/Vol] Microalbumin [Mass/volume] in Urine High 0.0-1.8 [facility] Microalbumin/Creatinine rati o panel (U)on 02-27-2024 Albumin [Mass/Vol] 3.2 mg/dL High 0.0 - 1.8 mg/dL [facility] Creatinine spec 2 (U) [Mass/Vol] 109 mg/dL [facility] Comment on above: No reference range e stablished Interpretation and review of laboratory results Abnormal [facility] MICROALBUMIN/CREATININE RATIO 29.4 mg/g 0.0 - 30.0 mg/g [facility] Comment on above: 30-300 mg/g indicate s an increased risk for diabetic nephropathy. Greater than 300 mg/g is consistent with clinical nephropathy. (Am. J. Kidney Disease 1995, 25:107) [facility] Monocytes Auto (Bld) [#/Vol] Ordered By: Phani Ambrocio on 02-27-2024 Monocytes (Bld) [#/Vol] Automated blood monocyte count 0.0-0.8 [facility] Monocytes/100 WBC Auto (Bld) Ordered By: Phani Ambrocio on 02-27-2024 Monocytes/100 WBC (Bld) Automated monocyte % . [facility] Neutrophils Auto (Bld) [#/Vo l]Ordered By: Phani Ambrocio on 02-27-2024 Neutrophils (Bld) [#/Vol] Neutrophils [#/volume] in Blood by Automated count 1.8-7.7 [facility] Neutrophils/100 WBC Auto (Bl d)Ordered By: Phani Ambrocio on 02-27-2024 Neutrophils/100 WBC (Bld) Automated neutrophil % . [facility] No Panel Informationon 02-26 Interpretation and review of laboratory results Abnormal [facility] No Panel InformationOrdered By: Phani Ambrocio on 02-27-2024 Estimated GFR (CKD-EPI) > 60.0 mL/Min [facility] Creatinine Clearance (Chem N/A [facility] Nucleated erythrocytes [Pres ence] in Blood by Automated countOrdered By: Phani Ambrocio on 02-27-2024 Nucleated RBC Auto Ql (Bld) Nucleated erythrocytes [Presence] in Blood by Automated count 0-0.5 [facility] Platelet mean volume Auto (B ld) [Entitic vol]Ordered By: Phani Ambrocio on 02-27-2024 Platelet mean volume (Bld) [Entitic vol] Platelet mean volume [Entitic volume] in Blood by Automated count 6.6-10.1 [facility] Platelets Auto (Bld) [#/Vol] Ordered By: Phani Ambrocio on 02-27-2024 Platelets (Bld) [#/Vol] Platelets [#/vol ume] in Blood by Automated count 150-450 [facility] Potassium [Moles/volume] in Serum or PlasmaOrdered By: Phani Ambrocio on 02-27-2024 Potassium [Moles/Vol] Potassium [Moles/volume] in Serum or Plasma 3.5-5.1 [facility] Protein [Mass/volume] in Ser um or PlasmaOrdered By: Phani Ambrocio on 02-27-2024 Protein [Mass/Vol] Protein [Mass/volume ] in Serum or Plasma Low 6.4-8.9 [facility] RBC Auto (Bld) [#/Vol]Ordere d By: Phani Ambrocio on 02-27-2024 RBC (Bld) [#/Vol] Erythrocytes [#/volume] in Blood by Automated count 3.90-5.60 [facility] Serum or plasma albumin/glob ulin mass ratioOrdered By: Phani Ambrocio on 02-27-2024 Albumin/Globulin [Mass ratio] Serum or plasma albumin/globulin mass ratio [facility] Serum or plasma anion gap de terminationOrdered By: Phani Ambrocio on 02-27-2024 Anion gap [Moles/Vol] Serum or plasma an ion gap determination 6.0-15.0 [facility] Serum or plasma total choles terol/high density lipoprotein (HDL) cholesterol mass ratOrdered By: Phani Ambrocio on 02-27-2024 Cholesterol.total/Janeen sterol in HDL [Mass ratio] Serum or plasma total cholesterol/high density lipoprotein (HDL) cholesterol mass rat <5.0 [facility] Sodium [Moles/volume] in Ser um or PlasmaOrdered By: Phani Ambrocio on 02-27-2024 Sodium [Moles/Vol] Sodium [Moles/volume ] in Serum or Plasma 136-145 [facility] Triglyceride [Mass/volume] i n Serum or PlasmaOrdered By: Phani Ambrocio on 02-27-2024 Triglyceride [Mass/Vol] Triglyceride [Mass/volume] in Serum or Plasma 0-149 [facility] Comment on above: TRIG ATP III [...] [Mass/volume] in Serum or Plasma High 7-25 [facility] Urine microalbumin/creatinin e mass ratioOrdered By: Phani Ambrocio on 02-27-2024 Albumin/Creatinine DL <= 20 mg/L (U) [Mass ratio] Urine microalbumin/creatini ne mass ratio 0.0-30.0 [facility] Comment on above: 30-300 mg/g indicate s an increased risk for diabetic nephropathy. Greater than 300 mg/g is consistent with clinical nephropathy. (Am. J. Kidney Disease 1995, 25:107) WBC Auto (Bld) [#/Vol]Ordere d By: Phani Ambrocio on 02-27-2024 WBC (Bld) [#/Vol] Leukocytes [#/volume ] in Blood by Automated count 4.1-10.5 [facility] Hemoglobin a1c with eagon Glucose [Mass/Vol] 128 mg/dL [facility] HbA1c (Bld) [Mass fraction] 6.1 % High 4.3 - 5.6 % [facility] Comment on above: Increased risk for d iabetes: 5.7 - 6.4 diabetes: >6.4 glycemic control for adults with diabetes: <7.0 Interpretation and review of laboratory results Abnormal [facility] FASTING. JKW [facility] A1C with Estimated Average G luon 11-16-2023 Glucose [Mass/Vol] 128 mg/dL Normal [facility] Comment on above: Order Comment: FASTI NG. [facility] Result Comment: PERF ORMED BY: [place] [address] PATHOLOGIST [employer] MARKETING EXECUTIVE CECILIA CARBONE M.D. Performed By: #### C BCNO, BMP, MG #### [address] HbA1c (Bld) [Mass fraction] 6.1 % High 4.3-5.6 [facility] Comment on above: Order Comment: FASTI NG. JKW Result Comment: Incr eased risk for diabetes: 5.7 - 6.4 diabetes: >6.4 glycemic control for adults with diabetes: <7.0 Performed By: #### C BCNO, BMP, MG #### [address] Alanine aminotransferase [En zymatic activity/volume] in Serum or PlasmaOrdered By: Phani Ambrocio on 11-16-2023 ALT [Catalytic activity/Vol] 9 U/L Normal 7-52 [facility] Comment on above: Order Comment: FASTI NG. JKW Performed By: #### C BCNO, BMP, MG #### [place] [address] [place] Albumin [Mass/volume] in Ser um or Plasma by Bromocresol green (BCG) dye binding methoOrdered By: Phani Ambrocio on 11-16-2023 Albumin BCG dye [Mass/Vol] 4.1 g/dL 3.5-5.7 [facility] Alkaline phosphatase [Enzyma tic activity/volume] in Serum or PlasmaOrdered By: Phani Ambrocio on 11-16-2023 ALP [Catalytic activity/Vol] 90 U/L Normal 34-104 [facility] Comment on above: Order Comment: FASTI NG. JKW Performed By: #### C BCNO, BMP, MG #### [place] [address] [place] Aspartate aminotransferase [ Enzymatic activity/volume] in Serum or PlasmaOrdered By: Phani Ambrocio on 11-16-2023 AST [Catalytic activity/Vol] 13 U/L Normal 13-39 [facility] Comment on above: Order Comment: FASTI NG. JKW Performed By: #### C BCNO, BMP, MG #### [place] [address] [place] Automated basophil %Ordered By: Phani Ambrocio on 11-16-2023 Basophils/100 WBC (Bld) 0.4 % Normal . [facility] Comment on above: Order Comment: FASTI NG. JKW Performed By: #### C BCNO, BMP, MG #### [address] Automated basophil countOrde red By: Phani Ambrocio on 11-16-2023 Basophils (Bld) [#/Vol] 0.0 10*3/uL Normal 0.0-0.2 [facility] Comment on above: Order Comment: FASTI NG. JKW Result Comment: PERF ORMED BY: [place] [address] PATHOLOGIST [employer]ET[employer] EXECUTIVE CECILIA CARBONE M.D. Performed By: #### C BCNO, BMP, MG #### [address] Automated blood monocyte cou ntOrdered By: Phani Ambrocio on 11-16-2023 Monocytes (Bld) [#/Vol] 0.7 10*3/uL Normal 0.0-0.8 [facility] Comment on above: Order Comment: FASTI NG. JKW Performed By: #### C BCNO, BMP, MG #### [address] Automated eosinophil %Ordere d By: Phani Ambrocio on 11-16-2023 Eosinophils/100 WBC (Bld) 0.7 % Normal . [facility] Comment on above: Order Comment: FASTI NG. JKW Performed By: #### C BCNO, BMP, MG #### [address] Automated eosinophil countOr dered By: Phani Ambrocio on 11-16-2023 Eosinophils (Bld) [#/Vol] 0.0 10*3/uL Normal 0.0-0.45 [facility] Comment on above: Order Comment: FASTI NG. JKW Performed By: #### C BCNO, BMP, MG #### [address] Automated monocyte %Ordered By: Phani Ambrocio on 11-16-2023 Monocytes/100 WBC (Bld) 11.0 % Normal . [facility] Comment on above: Order Comment: FASTI NG. JKW Performed By: #### C BCNO, BMP, MG #### [facility] [address] Automated neutrophil %Ordere d By: Phani Ambrocio on 11-16-2023 Neutrophils/100 WBC (Bld) 63.2 % Normal . [facility] Comment on above: Order Comment: FASTI NG. JKW Performed By: #### C BCNO, BMP, MG #### [facility] [address] Bilirubin.total [Mass/volume ] in Serum or PlasmaOrdered By: Phani Ambrocio on 11-16-2023 Bilirubin [Mass/Vol] 1.1 mg/dL High 0.3-1.0 [facility] Comment on above: Order Comment: FASTI NG. JKW Performed By: #### C BCNO, BMP, MG #### [facility] [address] CBC W Auto Differential pane l (Bld)on 11-16-2023 Basophils (Bld) [#/Vol] 0.0 10*3/uL 0.0 - 0.2 10*3/uL [facility] Basophils/100 WBC Manual cnt (Syn fld) 0.4 % . [facility] Eosinophils (Bld) [#/Vol] 0.0 10*3/uL 0.0 - 0.45 10*3/uL [facility] Eosinophils/100 WBC Manual cnt (Syn fld) 0.7 % . [facility] Erythrocyte distribution width (RBC) [Ratio] 14.3 % 12.0 - 14.8 % [facility] Hematocrit (Bld) [Volume fraction] 38.9 % 38.8 - 50.0 % [facility] Hemoglobin (Bld) [Mass/Vol] 13.0 g/dL 13.0 - 17.0 g/dL [facility] Lymphocytes (Bld) [#/Vol] 1.5 10*3/uL 1.00 - 4.8 10*3/uL [facility] Lymphocytes/100 WBC Manual cnt (Syn fld) 24.7 % . [facility] MCH (RBC) [Entitic mass] 31.3 pg 27.5 - 35.2 pg [facility] MCHC (RBC) [Mass/Vol] 33.4 g/dL 32.5 - 35.6 g/dL [facility] MCV (RBC) [Entitic vol] 93.9 fL 83.5 - 101 fL [facility] Monocytes (Bld) [#/Vol] 0.7 10*3/uL 0.0 - 0.8 10*3/uL [facility] Monocytes+Macrophages/1 00 WBC Manual cnt (Syn fld) 11.0 % . [facility] Neutrophils (Bld) [#/Vol] 3.8 10*3/uL 1.8 - 7.7 10*3/uL [facility] Neutrophils/100 WBC Manual cnt (Syn fld) 63.2 % . [facility] NRBC 0.0 /100{WBC} 0 - 0.5 /100{WBC} [facility] Platelet mean volume (Bld) [Entitic vol] 9.2 fL 6.6 - 10.1 fL [facility] Platelets (Bld) [#/Vol] 174 10*3/uL 150 - 450 10*3/uL [facility] RBC LM.HPF (Urine sed) [#/Area] 4.14 /[HPF] 3.90 - 5.60 [facility] WBC (Bld) [#/Vol] 6.1 10*3/uL 4.1 - 10.5 10*3/uL [facility] WBC LM.HPF (Urine sed) [#/Area] 6.1 10*3/uL 4.1 - 10.5 10*3/uL [facility] FASTING. [facility] Calcium [Mass/volume] in Ser um or PlasmaOrdered By: Phani Ambrocio on 11-16-2023 Calcium [Mass/Vol] 9.0 mg/dL Normal 8.6-10.3 [facility] Comment on above: Order Comment: ISI MORROW. SONYW Performed By: #### C BCNO, BMP, MG #### [address] Carbon dioxide, total [Moles /volume] in Serum or PlasmaOrdered By: Phani Ambrocio on 11-16-2023 CO2 [Moles/Vol] 28.0 mmol/L Normal 21.0-31.0 [facility] Comment on above: Order Comment: ISI ChanceKW Performed By: #### C BCNO, BMP, MG #### [facility] [address] [place] [id number] [place] Chloride [Moles/volume] in S grady or PlasmaOrdered By: Phani Ambrocio on 11-16-2023 Chloride [Moles/Vol] 107 mmol/L Normal 98-107 [facility] Comment on above: Order Comment: ISI ChanceKW Performed By: #### C BCNO, BMP, MG #### [facility] [address] [place] [id number] [place] Cholesterol [Mass/volume] in Serum or PlasmaOrdered By: Phani Ambrocio on 11-16-2023 Cholesterol [Mass/Vol] 116 mg/dL Low 140-[address] [facility] Comment on above: Chol less than 200 m g/dl low riskChol 201-239 mg/dl borderline riskChol 240 mg/dl and greater high risk Order Comment: ISI ChanceKW Result Comment: Chol less than 200 mg/dl low risk Chol 201-239 mg/dl borderline risk Chol 240 mg/dl and greater high risk Performed By: #### C BCNO, BMP, MG #### [facility] [address] [place] [id number] [place] Cholesterol in LDL Calc [Mas s/Vol]Ordered By: Phani Ambrocio on 11-16-2023 Cholesterol in LDL [Mass/Vol] 51 mg/dL 0-100 [facility] Comment on above: LDL ATP III CLASSIFI CATIONLDL less than 100 mg/dL OptimalLDL 100-129 mg/dL Near or above optimalLDL 130-159 mg/dL Borderline highLDL 160-189 mg/dL HighLDL greater than 189 mg/dL Very high Cholesterol in VLDL Calc [Ma ss/Vol]Ordered By: Phani Ambrocio on 11-16-2023 Cholesterol in VLDL [Mass/Vol] 14 mg/dL [facility] Complete Blood Count Auto Di ffon 11-16-2023 Mean Corpuscular HGB Conc 33.4 g/dL Normal 32.5-35.6 [facility] Comment on above: Order Comment: FASTI NG. JKW Performed By: #### C BCNO, BMP, MG #### [address] NRBC% 0.0 /100{WBC} Normal 0-0.5 [facility] Comment on above: Order Comment: FASTI NG. JKW Performed By: #### C BCNO, BMP, MG #### [address] Comprehensive Metabolic Pane stephanie 11-16-2023 Albumin [Mass/Vol] 4.1 g/dL Normal 3.5-5.7 [facility] Comment on above: Order Comment: FASTI NG. JKW Performed By: #### C BCNO, BMP, MG #### [address] GFR/1.73 sq M.predicted MDRD (S/P/Bld) [Vol rate/Area] mL/min/{1.73_m2} Normal [facility] Comment on above: Order Comment: FASTI NG. JKW Performed By: #### C BCNO, BMP, MG #### [address] Creatinine [Mass/volume] in Serum or PlasmaOrdered By: Phani Ambrocio on 11-16-2023 Creatinine [Mass/Vol] 1.21 mg/dL Normal 0.70-1.30 [facility] Comment on above: Order Comment: FASTI NG. JKW Performed By: #### C BCNO, BMP, MG #### [facility] [address] [place] [address] Creatinine [Mass/volume] in UrineOrdered By: Phani Ambrocio on 11-16-2023 Creatinine (U) [Mass/Vol] 143.00 mg/dL [facility] Comment on above: No reference range e stablished Erythrocyte distribution wid th [Ratio] by Automated countOrdered By: Phani Ambrocio on 11-16-2023 Erythrocyte distribution width (RBC) [Ratio] 14.3 % Normal 12.0-14.8 [facility] Comment on above: Order Comment: FASTI NG. JKW Performed By: #### C BCNO, BMP, MG #### [facility] [address] [id number] [place] Erythrocytes [#/volume] in B lood by Automated countOrdered By: Phani Ambrocio on 11-16-2023 RBC (Bld) [#/Vol] 4.14 10*6/uL Normal 3.90-5.60 [facility] Comment on above: Order Comment: FASTI NG. JKW Performed By: #### C BCNO, BMP, MG #### [facility] [address] [place] [address] [place] Glucose [Mass/volume] in Ser um or PlasmaOrdered By: Phani Ambrocio on 11-16-2023 Glucose [Mass/Vol] 107 mg/dL High 70-100 [facility] Comment on above: ADA recommended refe rence rangeRandom Glucose Reference Range is dependent on time and content of last meal. Glucose of more than 200 mg/dL in a nonstressed, ambulatory subject supports the diagnosis of Diabetes Mellitus. Order Comment: FASTI NG. JKW Result Comment: Arvin om Glucose Reference Range is dependent on time and content of last meal. Glucose of more than 200 mg/dL in a nonstressed, ambulatory subject supports the diagnosis of Diabetes Mellitus. ADA recommended reference range Performed By: #### C BCNO, BMP, MG #### [facility] [address] [id number] [place] Hematocrit [Volume Fraction] of Blood by Automated countOrdered By: Phani Ambrocio on 11-16-2023 Hematocrit (Bld) [Volume fraction] 38.9 % Normal 38.8-50.0 [facility] Comment on above: Order Comment: FASTI NG. JKW Performed By: #### C BCNO, BMP, MG #### [facility] [address] [id number] [place] Hemoglobin [Mass/volume] in BloodOrdered By: Phani Ambrocio on 11-16-2023 Hemoglobin (Bld) [Mass/Vol] 13.0 g/dL Normal 13.0-17.0 [facility] Comment on above: Order Comment: ISI CARDOZAW Performed By: #### C BCNO, BMP, MG #### [facility] [address] [place] [address] [place] Leukocytes [#/volume] correc marimar for nucleated erythrocytes in Blood by Automated counOrdered By: Phani Ambrocio on 11-16-2023 WBC corrected for nucl RBC Auto (Bld) [#/Vol] 6.1 10*3/uL 4.1-10.5 [facility] Leukocytes [#/volume] in Blo od by Automated countOrdered By: Phani Ambrocio on 11-16-2023 WBC (Bld) [#/Vol] 6.1 10*3/uL Normal 4.1-10.5 [facility] Comment on above: Order Comment: ISI CARDOZAW Performed By: #### C BCNO, BMP, MG #### [facility] [address] Lipid Panelon 11-16-2023 LDL Cholesterol,Calculated 51 mg/dL Normal 0-100 [facility] Comment on above: Order Comment: ISI PRESCOTT Result Comment: LDL ATP III CLASSIFICATION LDL less than 100 mg/dL Optimal LDL 100-129 mg/dL Near or above optimal LDL 130-159 mg/dL Borderline high LDL 160-189 mg/dL High LDL greater than 189 mg/dL Very high Performed By: #### C BCNO, BMP, MG #### [facility] [address] Triglyceride w/Reflex 70 mg/dL Normal 0-149 [facility] Comment on above: Order Comment: ISI PRESCOTT Result Comment: TRIG ATP III CLASSIFICATION TRIG less than 150 mg/dL Normal TRIG 150-199 mg/dL Borderline high TRIG 200-500 mg/dL High TRIG greater than 500 mg/dL Very high Standard traceable to the Center for Disease Conrtrol and Prevention (CDC) test method. Performed By: #### C BCNO, BMP, MG #### [facility] [address] VLDL CHOLESTEROL 14 mg/dL Normal [facility] Comment on above: Order Comment: FASTI NG. JKW Performed By: #### C BCNO, BMP, MG #### [address] Lymphocytes [#/volume] in Bl ood by Automated countOrdered By: Phani Ambrocio on 11-16-2023 Lymphocytes (Bld) [#/Vol] 1.5 10*3/uL Normal 1.00-4.8 [facility] Comment on above: Order Comment: FASTI NG. JKW Performed By: #### C BCNO, BMP, MG #### [address] Lymphocytes/100 leukocytes i n Blood by Automated countOrdered By: Phani Ambrocio on 11-16-2023 Lymphocytes/100 WBC (Bld) 24.7 % Normal . [facility] Comment on above: Order Comment: FASTI NG. JKW Performed By: #### C BCNO, BMP, MG #### [address] MCH [Entitic mass] by Automa marimar countOrdered By: Phani Ambrocio on 11-16-2023 MCH (RBC) [Entitic mass] 31.3 pg Normal 27.5-35.2 [facility] Comment on above: Order Comment: FASTI NG. JKW Performed By: #### C BCNO, BMP, MG #### [address] MCHC Auto (RBC) [Mass/Vol]Or dered By: Phani Ambrocio on 11-16-2023 MCHC (RBC) [Mass/Vol] 33.4 g/dL 32.5-35.6 [facility] MCV [Entitic volume] by Auto mated countOrdered By: Phani Ambrocio on 11-16-2023 MCV (RBC) [Entitic vol] 93.9 fL Normal 83.5-101 [facility] Comment on above: Order Comment: FASTI NG. JKW Performed By: #### C BCNO, BMP, MG #### [address] MicroAlb Creat Ratio,Uon Creatinine, Urine (Random) 143.00 mg/dL Normal [facility] Comment on above: Order Comment: ISI ChanceKW Result Comment: No r eference range established Performed By: #### C BCNO, BMP, MG #### [facility] [address] Microalbumin/Creatinine Ratio 18.2 mg/g Normal 0.0-30.0 [facility] Comment on above: Order Comment: ISI MORROW. JKW Result Comment: 30-3 00 mg/g indicates an increased risk for diabetic nephropathy. Greater than 300 mg/g is consistent with clinical nephropathy. (Am. J. Kidney Disease 1994, 25:107) PERFORMED BY: [place] [address] PATHOLOGIST [employer]EC[employer]IVE CECILIA CARBONE M.D. Performed By: #### C BCNO, BMP, MG #### [facility] [address] [place] [address] Microalbumin [Mass/volume] i n UrineOrdered By: Phani Ambrocio on 11-16-2023 Albumin DL <= 20 mg/L (U) [Mass/Vol] 2.6 mg/dL High 0.0-1.8 [facility] Comment on above: Order Comment: ISI DYSON JKW Performed By: #### C BCNO, BMP, MG #### [place] [address] [place] Microalbumin/Creatinine rati o panel (U)on 11-16-2023 Albumin [Mass/Vol] 2.6 mg/dL High 0.0 - 1.8 mg/dL [facility] Creatinine spec 2 (U) [Mass/Vol] 143.00 mg/dL [facility] Comment on above: No reference range e stablished Interpretation and review of laboratory results Abnormal [facility] MICROALBUMIN/CREATININE RATIO 18.2 mg/g 0.0 - 30.0 mg/g [facility] Comment on above: 30-300 mg/g indicate s an increased risk for diabetic nephropathy. Greater than 300 mg/g is consistent with clinical nephropathy. (Am. J. Kidney Disease 1995, 25:107) FASTING. JKW [facility] Neutrophils [#/volume] in Bl ood by Automated countOrdered By: Phani Ambrocio on 11-16-2023 Neutrophils (Bld) [#/Vol] 3.8 10*3/uL Normal 1.8-7.7 [facility] Comment on above: Order Comment: FASTI NG. JKW Performed By: #### C BCNO, BMP, MG #### [facility] [address] No Panel InformationOrdered By: Phani Ambrocio on 11-16-2023 Estimated GFR (CKD-EPI) > 60.0 mL/Min [facility] Creatinine Clearance (Chem N/A [facility] Nucleated erythrocytes [Pres ence] in Blood by Automated countOrdered By: Phani Ambrocio on 11-16-2023 Nucleated RBC Auto Ql (Bld) 0.0 /100{WBC} 0-0.5 [facility] Platelet mean volume [Entiti c volume] in Blood by Automated countOrdered By: Phani Ambrocio on 11-16-2023 Platelet mean volume (Bld) [Entitic vol] 9.2 fL Normal 6.6-10.1 [facility] Comment on above: Order Comment: FASTI NG. JKW Performed By: #### C BCNO, BMP, MG #### [facility] [address] [place] [address] Platelets [#/volume] in Bloo d by Automated countOrdered By: Phani Ambrocio on 11-16-2023 Platelets (Bld) [#/Vol] 174 10*3/uL Normal 150-450 [facility] Comment on above: Order Comment: FASTI NG. JKW Performed By: #### C BCNO, BMP, MG #### [facility] [address] [place] [address] Potassium [Moles/volume] in Serum or PlasmaOrdered By: Phani Ambrocio on 11-16-2023 Potassium [Moles/Vol] 4.9 mmol/L Normal 3.5-5.1 [facility] Comment on above: Order Comment: FASTI NG. JKW Performed By: #### C BCNO, BMP, MG #### [address] Protein [Mass/volume] in Ser um or PlasmaOrdered By: Phani Ambrocio on 11-16-2023 Protein [Mass/Vol] 6.3 g/dL Low 6.4-8.9 [facility] Comment on above: Order Comment: FASTI NG. JKW Performed By: #### C BCNO, BMP, MG #### [address] Serum globulin measurement b y calculation (mass/volume)Ordered By: Phani Ambrocio on 11-16-2023 Globulin (S) [Mass/Vol] 2.2 g/dL Normal [facility] Comment on above: Order Comment: FASTI NG. JKW Performed By: #### C BCNO, BMP, MG #### [address] Serum or plasma albumin/glob ulin mass ratioOrdered By: Phani Ambrocio on 11-16-2023 Albumin/Globulin [Mass ratio] 1.9 {ratio} Normal [facility] Comment on above: Order Comment: FASTI NG. JKW Performed By: #### C BCNO, BMP, MG #### [address] Serum or plasma anion gap de terminationOrdered By: Phani Ambrocio on 11-16-2023 Anion gap [Moles/Vol] 11.9 mmol/L Normal 6.0-15.[address] [facility] Comment on above: Order Comment: FASTI NG. JKW Performed By: #### C BCNO, BMP, MG #### [address] Serum or plasma high density lipoprotein (HDL) cholesterol measurementOrdered By: Phani Ambrocio on 11-16-2023 Cholesterol in HDL [Mass/Vol] 51 mg/dL Normal 23-92 [facility] Comment on above: HDL CHOL ATP-III CLA SSIFICATION Cardiovascular RiskHDL > or equal to 60 mg/dL LOWHDL < 40 mg/dL HIGH Order Comment: ISI MORROW. JKW Result Comment: HDL CHOL ATP-III CLASSIFICATION Cardiovascular Risk HDL > or equal to 60 mg/dL LOW HDL < 40 mg/dL HIGH Performed By: #### C BCMARCI, BMP, MG #### [facility] [address] [place] [address] Serum or plasma total choles terol/high density lipoprotein (HDL) cholesterol mass ratOrdered By: Phani Ambrocio on 11-16-2023 Cholesterol.total/Janeen sterol in HDL [Mass ratio] 2.3 {ratio} Normal <5.0 [facility] Comment on above: Order Comment: ISI ChanceKW Performed By: #### C BCMARCI, BMP, MG #### [address] Sodium [Moles/volume] in Ser um or PlasmaOrdered By: Phani Ambrocio on 11-16-2023 Sodium [Moles/Vol] 142 mmol/L Normal 136-145 [facility] Comment on above: Order Comment: ISI ChanceKW Performed By: #### C BCMARCI, BMP, MG #### [address] Thyroxine (T4) free [Mass/vo lume] in Serum or PlasmaOrdered By: Phani Ambrocio on 11-16-2023 Free T4 [Mass/Vol] 0.68 ng/dL Normal 0.61-1.12 [facility] Comment on above: Order Comment: ISI DYSON JKW Result Comment: PERF ORMED BY: [place] [address] PATHOLOGIST [employer] EXECUTIVE CECILIA CARBONE M.D. Performed By: #### C BCMARCI, BMP, MG #### [facility] [address] [place] [address] Triglyceride [Mass/volume] i n Serum or PlasmaOrdered By: Phani Ambrocio on 11-16-2023 Triglyceride [Mass/Vol] 70 mg/dL 0-149 [facility] Comment on above: TRIG ATP III CLASSIF ICATIONTRIG less than 150 mg/dL NormalTRIG 150-199 mg/dL Borderline highTRIG 200-500 mg/dL High TRIG greater than 500 mg/dL Very highStandard traceable to the Center for Disease Conrtrol and Prevention (CDC) test method. Urea nitrogen [Mass/volume] in Serum or PlasmaOrdered By: Phani Ambrocio on 11-16-2023 Urea nitrogen [Mass/Vol] 20 mg/dL Normal - [facility] Comment on above: Order Comment: ISI CARDOZAW Performed By: #### C FRANNIE BHATTI, MG #### [address] Urine microalbumin/creatinin e mass ratioOrdered By: Phani Ambrocio on 11-16-2023 Albumin/Creatinine DL <= 20 mg/L (U) [Mass ratio] 18.2 mg/g 0.0-30.0 [facility] Comment on above: 30-300 mg/g indicate s an increased risk for diabetic nephropathy. Greater than 300 mg/g is consistent with clinical nephropathy. (Am. J. Kidney Disease 1995, 25:107) A1C with Estimated Average G brysonn 08-25-2023 Glucose [Mass/Vol] 131 mg/dL Normal [facility] Comment on above: Result Comment: PERF ORMED BY: [place] [address] PATHOLOGIST [employer] EXECUTIVE CECILIA CARBONE M.D. Performed By: #### C FRANNIE BHATTI, MG #### [place] [address] [place] Alanine aminotransferase [En zymatic activity/volume] in Serum or PlasmaOrdered By: Phani Ambrocio on 08-25-2023 ALT [Catalytic activity/Vol] 10 U/L Normal - [facility] Comment on above: Performed By: #### C MAGY BMP, MG #### [place] [address] [place] Albumin [Mass/volume] in Ser um or Plasma by Bromocresol green (BCG) dye binding methoOrdered By: Phani Ambrocio on 08-25-2023 Albumin BCG dye [Mass/Vol] 4.2 g/dL 3.5-5.7 [facility] Alkaline phosphatase [Enzyma tic activity/volume] in Serum or PlasmaOrdered By: Phani Ambrocio on 08-25-2023 ALP [Catalytic activity/Vol] 92 U/L Normal 34-104 [facility] Comment on above: Performed By: #### C BCNO, BMP, MG #### [address] Aspartate aminotransferase [ Enzymatic activity/volume] in Serum or PlasmaOrdered By: Phani Ambrocio on 08-25-2023 AST [Catalytic activity/Vol] 14 U/L Normal 13-39 [facility] Comment on above: Performed By: #### C BCNO, BMP, MG #### [address] Automated basophil %Ordered By: Phani Ambrocio on 08-25-2023 Basophils/100 WBC (Bld) 0.3 % Normal . [facility] Comment on above: Performed By: #### C BCNO, BMP, MG #### [address] Automated basophil countOrde red By: Phani Ambrocio on 08-25-2023 Basophils (Bld) [#/Vol] 0.0 10*3/uL Normal 0.0-0.2 [facility] Comment on above: Result Comment: PERF ORMED BY: [place] [address] PATHOLOGIST [employer] EXECUTIVE CECILIA CARBONE M.D. Performed By: #### C BCNO, BMP, MG #### [address] Automated blood monocyte cou ntOrdered By: Phani Ambrocio on 08-25-2023 Monocytes (Bld) [#/Vol] 0.6 10*3/uL Normal 0.0-0.8 [facility] Comment on above: Performed By: #### C BCNO, BMP, MG #### [address] Automated eosinophil %Ordere d By: Phani Ambrocio on 08-25-2023 Eosinophils/100 WBC (Bld) 1.2 % Normal . [facility] Comment on above: Performed By: #### C BCNO, BMP, MG #### [facility] [address] Automated eosinophil countOr dered By: Phani Ambrocio on 08-25-2023 Eosinophils (Bld) [#/Vol] 0.1 10*3/uL Normal 0.0-0.45 [facility] Comment on above: Performed By: #### C BCNO, BMP, MG #### [facility] [address] Automated monocyte %Ordered By: Phani Ambrocio on 08-25-2023 Monocytes/100 WBC (Bld) 9.9 % Normal . [facility] Comment on above: Performed By: #### C BCNO, BMP, MG #### [facility] [address] Automated neutrophil %Ordere d By: Phani Ambrocio on 08-25-2023 Neutrophils/100 WBC (Bld) 64.6 % Normal . [facility] Comment on above: Performed By: #### C BCNO, BMP, MG #### [facility] [address] Bilirubin.total [Mass/volume ] in Serum or PlasmaOrdered By: Phani Ambrocio on 08-25-2023 Bilirubin [Mass/Vol] 1.4 mg/dL High 0.3-1.0 [facility] Comment on above: Samples from patient [...] By: #### C BCNO, BMP, MG #### [facility] [address] [place] [address] [place] Calcium [Mass/volume] in Ser um or PlasmaOrdered By: Phani Ambrocio on 08-25-2023 Calcium [Mass/Vol] 9.0 mg/dL Normal 8.6-10.3 [facility] Comment on above: Performed By: #### C BCNO, BMP, MG #### [facility] [address] [place] [address] [place] Carbon dioxide, total [Moles /volume] in Serum or PlasmaOrdered By: Phani Ambrocio on 08-25-2023 CO2 [Moles/Vol] 26.9 mmol/L Normal 21.0-31.0 [facility] Comment on above: Performed By: #### C BCNO, BMP, MG #### [facility] [address] [place] [address] [place] Chloride [Moles/volume] in S grady or PlasmaOrdered By: Phani Ambrocio on 08-25-2023 Chloride [Moles/Vol] 106 mmol/L Normal 98-107 [facility] Comment on above: Performed By: #### C BCNO, BMP, MG #### [facility] [address] [place] [address] [place] Cholesterol [Mass/volume] in Serum or PlasmaOrdered By: Phani Ambrocio on 08-25-2023 Cholesterol [Mass/Vol] 106 mg/dL Low 140-[address] [facility] Comment on above: Chol less than 200 m g/dl low riskChol 201-239 mg/dl borderline riskChol 240 mg/dl and greater high risk Result Comment: Chol less than 200 mg/dl low risk Chol 201-239 mg/dl borderline risk Chol 240 mg/dl and greater high risk Performed By: #### C BCNO, BMP, MG #### [facility] [address] [place] [address] [place] Cholesterol in LDL Calc [Mas s/Vol]Ordered By: Phani Ambrocio on 08-25-2023 Cholesterol in LDL [Mass/Vol] 46 mg/dL 0-100 [facility] Comment on above: LDL ATP III CLASSIFI CATIONLDL less than 100 mg/dL OptimalLDL 100-129 mg/dL Near or above optimalLDL 130-159 mg/dL Borderline highLDL 160-189 mg/dL HighLDL greater than 189 mg/dL Very high Cholesterol in VLDL Calc [Ma ss/Vol]Ordered By: Phani Ambrocio on 08-25-2023 Cholesterol in VLDL [Mass/Vol] 11 mg/dL [facility] Complete Blood Count Auto Di ffon 08-25-2023 Mean Corpuscular HGB Conc 33.5 g/dL Normal 32.5-35.6 [facility] Comment on above: Performed By: #### C BCNO, BMP, MG #### [facility] [address] [place] [address] NRBC% 0.0 /100{WBC} Normal 0-0.5 [facility] Comment on above: Performed By: #### C BCNO, BMP, MG #### [address] Comprehensive Metabolic Pane stephanie 08-25-2023 Albumin [Mass/Vol] 4.2 g/dL Normal 3.5-5.7 [facility] Comment on above: Performed By: #### C BCNO, BMP, MG #### [address] GFR/1.73 sq M.predicted MDRD (S/P/Bld) [Vol rate/Area] mL/min/{1.73_m2} Normal [facility] Comment on above: Performed By: #### C BCNO, BMP, MG #### [address] Creatinine [Mass/volume] in Serum or PlasmaOrdered By: hPani Ambrocio on 08-25-2023 Creatinine [Mass/Vol] 0.98 mg/dL Normal 0.70-1.30 [facility] Comment on above: Performed By: #### C BCNO, BMP, MG #### [address] Erythrocyte distribution wid th [Ratio] by Automated countOrdered By: Phani Ambrocio on 08-25-2023 Erythrocyte distribution width (RBC) [Ratio] 14.5 % Normal 12.0-14.8 [facility] Comment on above: Performed By: #### C BCMARCI, BMP, MG #### [facility] [address] Erythrocytes [#/volume] in B lood by Automated countOrdered By: Phani Ambrocio on 08-25-2023 RBC (Bld) [#/Vol] 4.04 10*6/uL Normal 3.90-5.60 [facility] Comment on above: Performed By: #### C BCMARCI, BMP, MG #### [facility] [address] [place] [address] [place] Glucose [Mass/volume] in Ser um or PlasmaOrdered By: Phani Ambrocio on 08-25-2023 Glucose [Mass/Vol] 109 mg/dL High 70-100 [facility] Comment on above: ADA recommended refe rence rangeRandom Glucose Reference Range is dependent on time and content of last meal. Glucose of more than 200 mg/dL in a nonstressed, ambulatory subject supports the diagnosis of Diabetes Mellitus. Result Comment: Arvin om Glucose Reference Range is dependent on time and content of last meal. Glucose of more than 200 mg/dL in a nonstressed, ambulatory subject supports the diagnosis of Diabetes Mellitus. ADA recommended reference range Performed By: #### C MAGY BMP, MG #### [facility] [address] Glucose mean value [Mass/vol ume] in Blood Estimated from glycated hemoglobinOrdered By: Phani Ambrocio on 08-25-2023 Average glucose Estimated from glycated hemoglobin (Bld) [Mass/Vol] 131 mg/dL [facility] Hematocrit [Volume Fraction] of Blood by Automated countOrdered By: Phani Ambrocio on 08-25-2023 Hematocrit (Bld) [Volume fraction] 37.7 % Low 38.8-50.0 [facility] Comment on above: Performed By: #### C BCNO, BMP, MG #### [facility] [address] [place] [id number] [place] Hemoglobin A1c percentageOrd ered By: Phani Ambrocio on 08-25-2023 HbA1c (Bld) [Mass fraction] 6.2 % High 4.3-5.6 [facility] Comment on above: Increased risk for d iabetes: 5.7 - 6.4diabetes: >6.4glycemic control for adults with diabetes: <7.0 Result Comment: Incr eased risk for diabetes: 5.7 - 6.4 diabetes: >6.4 glycemic control for adults with diabetes: <7.0 Performed By: #### C BCNO, BMP, MG #### [address] Hemoglobin [Mass/volume] in BloodOrdered By: Phani Ambrocio on 08-25-2023 Hemoglobin (Bld) [Mass/Vol] 12.6 g/dL Low 13.0-17.0 [facility] Comment on above: Performed By: #### C BCNO, BMP, MG #### [address] Leukocytes [#/volume] correc marimar for nucleated erythrocytes in Blood by Automated counOrdered By: Phani Ambrocio on 08-25-2023 WBC corrected for nucl RBC Auto (Bld) [#/Vol] 6.5 10*3/uL 4.1-10.5 [facility] Leukocytes [#/volume] in Blo od by Automated countOrdered By: Phani Ambrocio on 08-25-2023 WBC (Bld) [#/Vol] 6.5 10*3/uL Normal 4.1-10.5 [facility] Comment on above: Performed By: #### C BCNO, BMP, MG #### [address] Lipid Panelon 08-25-2023 LDL Cholesterol,Calculated 46 mg/dL Normal 0-100 [facility] Comment on above: Result Comment: LDL ATP III CLASSIFICATION LDL less than 100 mg/dL Optimal LDL 100-129 mg/dL Near or above optimal LDL 130-159 mg/dL Borderline high LDL 160-189 mg/dL High LDL greater than 189 mg/dL Very high Performed By: #### C BCNO, BMP, MG #### [address] Triglyceride w/Reflex 59 mg/dL Normal 0-149 [facility] Comment on above: Result Comment: TRIG ATP III CLASSIFICATION TRIG less than 150 mg/dL Normal TRIG 150-199 mg/dL Borderline high TRIG 200-500 mg/dL High TRIG greater than 500 mg/dL Very high Standard traceable to the Center for Disease Conrtrol and Prevention (CDC) test method. Performed By: #### C BCNO, BMP, MG #### [address] VLDL CHOLESTEROL 11 mg/dL Normal [facility] Comment on above: Performed By: #### C BCNO, BMP, MG #### [address] Lymphocytes [#/volume] in Bl ood by Automated countOrdered By: Phani Ambrocio on 08-25-2023 Lymphocytes (Bld) [#/Vol] 1.6 10*3/uL Normal 1.00-4.8 [facility] Comment on above: Performed By: #### C BCNO, BMP, MG #### [address] Lymphocytes/100 leukocytes i n Blood by Automated countOrdered By: Phani Ambrocio on 08-25-2023 Lymphocytes/100 WBC (Bld) 24.0 % Normal . [facility] Comment on above: Performed By: #### C BCNO, BMP, MG #### [address] MCH [Entitic mass] by Automa marimar countOrdered By: Phani Ambrocio on 08-25-2023 MCH (RBC) [Entitic mass] 31.3 pg Normal 27.5-35.2 [facility] Comment on above: Performed By: #### C BCNO, BMP, MG #### [address] MCHC Auto (RBC) [Mass/Vol]Or dered By: Phani Ambrocio on 08-25-2023 MCHC (RBC) [Mass/Vol] 33.5 g/dL 32.5-35.6 [facility] MCV [Entitic volume] by Auto mated countOrdered By: Phani Ambrocio on 08-25-2023 MCV (RBC) [Entitic vol] 93.4 fL Normal 83.5-101 F [facility] Comment on above: Performed By: #### C BCNO, BMP, MG #### [address] Neutrophils [#/volume] in Bl ood by Automated countOrdered By: Phani Ambrocio on 08-25-2023 Neutrophils (Bld) [#/Vol] 4.2 10*3/uL Normal 1.8-7.7 [facility] Comment on above: Performed By: #### C BCMARCI, BMP, MG #### [address] No Panel InformationOrdered By: Phani Ambrcoio on 08-25-2023 Estimated GFR (CKD-EPI) > 60.0 mL/Min [facility] Creatinine Clearance (Chem N/A [facility] Nucleated erythrocytes [Pres ence] in Blood by Automated countOrdered By: Phani Ambrocio on 08-25-2023 Nucleated RBC Auto Ql (Bld) 0.0 /100{WBC} 0-0.5 [facility] Platelet mean volume [Entiti c volume] in Blood by Automated countOrdered By: Phani Ambrocio on 08-25-2023 Platelet mean volume (Bld) [Entitic vol] 9.9 fL Normal 6.6-10.1 [facility] Comment on above: Performed By: #### C BCNO, BMP, MG #### [address] Platelets [#/volume] in Bloo d by Automated countOrdered By: Phani Ambrocio on 08-25-2023 Platelets (Bld) [#/Vol] 173 10*3/uL Normal 150-450 [facility] Comment on above: Performed By: #### C BCNO, BMP, MG #### [address] Potassium [Moles/volume] in Serum or PlasmaOrdered By: Phani Ambrocio on 08-25-2023 Potassium [Moles/Vol] 4.4 mmol/L Normal 3.5-5.1 [facility] Comment on above: Performed By: #### C BCMARCI, BMP, MG #### [facility] [address] [place] [address] Protein [Mass/volume] in Ser um or PlasmaOrdered By: Phani Ambrocio on 08-25-2023 Protein [Mass/Vol] 6.3 g/dL Low 6.4-8.9 [facility] Comment on above: Performed By: #### C BCNO, BMP, MG #### [facility] [address] [place] [address] Serum globulin measurement b y calculation (mass/volume)Ordered By: Phani Ambrocio on 08-25-2023 Globulin (S) [Mass/Vol] 2.1 g/dL Normal [facility] Comment on above: Performed By: #### C BCNO, BMP, MG #### [facility] [address] [place] [address] Serum or plasma albumin/glob ulin mass ratioOrdered By: Phani Ambrocio on 08-25-2023 Albumin/Globulin [Mass ratio] 2.0 {ratio} Normal [facility] Comment on above: Performed By: #### C BCMARCI, BMP, MG #### [facility] [address] [place] [address] Serum or plasma anion gap de terminationOrdered By: Phani Ambrocio on 08-25-2023 Anion gap [Moles/Vol] 11.5 mmol/L Normal 6.0-15.[address] [facility] Comment on above: Performed By: #### C BCNO, BMP, MG #### [facility] [address] [place] [address] Serum or plasma high density lipoprotein (HDL) cholesterol measurementOrdered By: Phani Ambrocio on 08-25-2023 Cholesterol in HDL [Mass/Vol] 48 mg/dL Normal 23-92 [facility] Comment on above: HDL CHOL ATP-III CLA SSIFICATION Cardiovascular RiskHDL > or equal to 60 mg/dL LOWHDL < 40 mg/dL HIGH Result Comment: HDL CHOL ATP-III CLASSIFICATION Cardiovascular Risk HDL > or equal to 60 mg/dL LOW HDL < 40 mg/dL HIGH Performed By: #### C MAGY BMP, MG #### [address] Serum or plasma total choles terol/high density lipoprotein (HDL) cholesterol mass ratOrdered By: Phani Ambrocio on 08-25-2023 Cholesterol.total/Janeen sterol in HDL [Mass ratio] 2.2 {ratio} Normal <5.0 [facility] Comment on above: Performed By: #### C MAGY, BMP, MG #### [address] Sodium [Moles/volume] in Ser um or PlasmaOrdered By: Phani Ambrocio on 08-25-2023 Sodium [Moles/Vol] 140 mmol/L Normal 136-145 [facility] Comment on above: Performed By: #### C MAGY BMP, MG #### [address] Thyrotropin [Units/volume] i n Serum or PlasmaOrdered By: Phani Ambrocio on 08-25-2023 TSH Qn 1.98 m[IU]/L Normal 0.45-5.33 [facility] Comment on above: Result Comment: PERF ORMED BY: [place] [address] PATHOLOGIST [employer]ET[employer] EXECUTIVE CECILIA CARBONE M.D. Performed By: #### C MAGY BMP, MG #### [address] Triglyceride [Mass/volume] i n Serum or PlasmaOrdered By: Phani Ambrocio on 08-25-2023 Triglyceride [Mass/Vol] 59 mg/dL 0-149 F [facility] Comment on above: TRIG ATP III CLASSIF ICATIONTRIG less than 150 mg/dL NormalTRIG 150-199 mg/dL Borderline highTRIG 200-500 mg/dL High TRIG greater than 500 mg/dL Very highStandard traceable to the Center for Disease Conrtrol and Prevention (CDC) test method. Urea nitrogen [Mass/volume] in Serum or PlasmaOrdered By: Phani Ambrocio on 08-25-2023 Urea nitrogen [Mass/Vol] 18 mg/dL Normal 7-25 [facility] Comment on above: Performed By: #### C BCNO, BMP, MG #### [facility] [address] Alanine aminotransferase [En zymatic activity/volume] in Serum or PlasmaOrdered By: FLAVIO LYNCH on 02-21-2023 ALT [Catalytic activity/Vol] 12 U/L 7-52 [facility] Albumin [Mass/volume] in Ser um or Plasma by Bromocresol green (BCG) dye binding methoOrdered By: FLAVIO LYNCH on 02-21-2023 Albumin BCG dye [Mass/Vol] 4.1 g/dL 3.5-5.7 [facility] Alkaline phosphatase [Enzyma tic activity/volume] in Serum or PlasmaOrdered By: FLAVIO LYNCH on 02-21-2023 ALP [Catalytic activity/Vol] 99 U/L 34-104 [facility] Aspartate aminotransferase [ Enzymatic activity/volume] in Serum or PlasmaOrdered By: FLAVIO LYNCH on 02-21-2023 AST [Catalytic activity/Vol] 14 U/L 13-39 [facility] Bilirubin.total [Mass/volume ] in Serum or PlasmaOrdered By: FLAVIO LYNCH on 02-21-2023 Bilirubin [Mass/Vol] 1.6 mg/dL 0.3-1.0 [facility] Comment on above: Samples from patient s who have taken Naproxen have shown spurious elevation in Total Bilirubin levels. A metabolite of Naproxen, O-desmethylnaproxen, has been shown to interfere with the Jenrichardik-Santos method for measuring Total Bilirubin. Calcium [Mass/volume] in Ser um or PlasmaOrdered By: FLAVIO LYNCH on 02-21-2023 Calcium [Mass/Vol] 9.3 mg/dL 8.6-10.3 [facility] Carbon dioxide, total [Moles /volume] in Serum or PlasmaOrdered By: FLAVIO LYNCH on 02-21-2023 CO2 [Moles/Vol] 28.2 mmol/L 21.0-31.0 [facility] Chloride [Moles/volume] in S grady or PlasmaOrdered By: FLAVIO LYNCH on 02-21-2023 Chloride [Moles/Vol] 105 mmol/L 98-107 [facility] Cholesterol [Mass/volume] in Serum or PlasmaOrdered By: FLAVIO LYNCH on 02-21-2023 Cholesterol [Mass/Vol] 106 mg/dL 140-[address] [facility] Comment on above: Chol less than 200 m g/dl low riskChol 201-239 mg/dl borderline riskChol 240 mg/dl and greater high risk Cholesterol in LDL Calc [Mas s/Vol]Ordered By: FLAVIO LYNCH on 02-21-2023 Cholesterol in LDL [Mass/Vol] 40 mg/dL 0-100 [facility] Comment on above: LDL ATP III CLASSIFI CATIONLDL less than 100 mg/dL OptimalLDL 100-129 mg/dL Near or above optimalLDL 130-159 mg/dL Borderline highLDL 160-189 mg/dL HighLDL greater than 189 mg/dL Very high Cholesterol in VLDL Calc [Ma ss/Vol]Ordered By: FLAVIO LYNCH on 02-21-2023 Cholesterol in VLDL [Mass/Vol] 20 mg/dL [facility] Creatinine [Mass/volume] in Serum or PlasmaOrdered By: FLAVIO LYNCH on 02-21-2023 Creatinine [Mass/Vol] 0.89 mg/dL 0.70-1.30 [facility] Globulin Calc (S) [Mass/Vol] Ordered By: FLAVIO LYNCH on 02-21-2023 Globulin (S) [Mass/Vol] 2.2 g/dL [facility] Glucose [Mass/volume] in Ser um or PlasmaOrdered By: FLAVIO LYNCH on 02-21-2023 Glucose [Mass/Vol] 137 mg/dL 70-100 [facility] Comment on above: ADA recommended refe rence rangeRandom Glucose Reference Range is dependent on time and content of last meal. Glucose of more than 200 mg/dL in a nonstressed, ambulatory subject supports the diagnosis of Diabetes Mellitus. No Panel InformationOrdered By: FLAVIO LYNCH on 02-21-2023 Estimated GFR (CKD-EPI) > 60.0 mL/Min [facility] Creatinine Clearance (Chem N/A [facility] Potassium [Moles/volume] in Serum or PlasmaOrdered By: FLAVIO LYNCH on 02-21-2023 Potassium [Moles/Vol] 4.3 mmol/L 3.5-5.1 [facility] Protein [Mass/volume] in Ser um or PlasmaOrdered By: FLAVIO LYNCH on 02-21-2023 Protein [Mass/Vol] 6.3 g/dL 6.4-8.9 [facility] Serum or plasma albumin/glob ulin mass ratioOrdered By: FLAVIO LYNCH on 02-21-2023 Albumin/Globulin [Mass ratio] 1.9 {ratio} [facility] Serum or plasma anion gap de terminationOrdered By: FLAVIO LYNCH on 02-21-2023 Anion gap [Moles/Vol] 12.1 mmol/L 6.0-15.[address] [facility] Serum or plasma high density lipoprotein (HDL) cholesterol measurementOrdered By: FLAVIO LYNCH on 02-21-2023 Cholesterol in HDL [Mass/Vol] 45 mg/dL 23-92 [facility] Comment on above: HDL CHOL ATP-III CLA SSIFICATION Cardiovascular RiskHDL > or equal to 60 mg/dL LOWHDL < 40 mg/dL HIGH Serum or plasma total choles terol/high density lipoprotein (HDL) cholesterol mass ratOrdered By: FLAVIO LYNCH on 02-21-2023 Cholesterol.total/Janeen sterol in HDL [Mass ratio] 2.4 {ratio} <5.0 [facility] Sodium [Moles/volume] in Ser um or PlasmaOrdered By: FLAVIO LYNCH on 02-21-2023 Sodium [Moles/Vol] 141 mmol/L 136-145 [facility] Thyrotropin [Units/volume] i n Serum or PlasmaOrdered By: FLAVIO LYNCH on 02-21-2023 TSH Qn 1.90 m[IU]/L 0.45-5.33 [facility] Triglyceride [Mass/volume] i n Serum or PlasmaOrdered By: FLAVIO LYNCH on 02-21-2023 Triglyceride [Mass/Vol] 103 mg/dL 0-149 F [facility] Comment on above: TRIG ATP III CLASSIF ICATIONTRIG less than 150 mg/dL NormalTRIG 150-199 mg/dL Borderline highTRIG 200-500 mg/dL High TRIG greater than 500 mg/dL Very highStandard traceable to the Center for Disease Conrtrol and Prevention (CDC) test method. Urea nitrogen [Mass/volume] in Serum or PlasmaOrdered By: FLAVIO LYNCH on 02-21-2023 Urea nitrogen [Mass/Vol] 13 mg/dL 10-05 [facility] Office Visit (Cardiology)on 12-01-2022 Follow-up visit [...] in adult Healthy Weight Tips; Status:Complete; Done: [id number] Some eating tips that can help you lose weight.; Status:Complete; Done: [id number] SocHx: Former smoker Tobacco Use Screening; Status:Complete; Done: [id number] Patient Instructions Please bring all medicines, vitamins, [...] up in 6 months PCP to forward [employer] [facility] to our office for review. Chief [...] Aricept managed by PCP. Kristofer Ortega MD, [facility] Surgical History Problems History of Cataract surgery [...] negative for complaint. Vitals Vital Signs Recorded: [id number] 11:22AM Heart Rate60, L Radial Dxhalrzr626, LUE, Sitting Tjkktdlrd77, LUE, Sitting Height5 ft 6.5 in Vuortg583 lb BMI Mzxbmfydgd43.96 kg/m2 BSA Calculated2.02 Tobacco Useb) No Falls [...] and n (more content not included)... Normal [facility] Tobacco Screening.on 023 Fall risk assessment b) One or more fall s in the last year [facility] [employer] 250 DO Work Phone: Tobacco use status [facility] b) No M [facility] [employer] 250 DO Work Phone: VASC LAB Carotid Artery Dupl ex Ultrasounon 05-26-2022 VAS LAB Carotid Artery Duplex Ultrasoun [address], [address] [place] [address] Vascular Lab Report Carotid Artery Duplex Ultrasound Patient Name: DES Thompson Physician: [id number] Kristofer Ortega MD, [facility] Study Date: 05/26/2022 Referring KRISTOFER ORTEGA Physician: MRN/PID: [id number] PCP: Harsh Ambrocio MD Accession/Order#: [id number] CC Report to: Date of : 1940 Technologist: Laura [place] RDCS, RVT Gender: M Technologist 2: Admission Status: Outpatient Location Performed: [facility] Diagnosis/ICD: C76-Tyakjptnu and giddiness Indication: CAD, PTCA-2014, Obesity, MICHAEL, Former Smoker, Diabetes, Hyperlipidemia Procedure/CPT: 99724 Cerebrovascular Carotid Duplex scan complete-[id number] CONCLUSIONS: Right Carotid: Findings are consistent with [...] cm/s Right Left ICA/CCA Ratio 0.8 1.2 [id number] Kristofer Ortega MD, FACC Final Normal [facility] Office Visit (Cardiology)on 05-19-2022 Follow-up [...] matter with his PCP. Kristofer Ortega MD, [facility] Surgical History Problems History of Cataract surgery [...] Recorded: 19May2022 10:42AM Heart Rate56, R Radial Ywqliaut181, LUE, Sitting Yaayvylez70, LUE, Sitting Height5 ft 6.5 in Ggwzke628 lb BMI Ppzyxhtgsa89.02 kg/m2 BSA Calculated2.07 Tobacco Useb) No PHQ-2 #1. Over the last 2 weeks have you felt down, depressed or hopeless? (If yes, an (more content not included)... Normal [facility] Tobacco Screening.on 023 Adult depression screening assessment No [facility] [employer] 250 DO Work Phone: Fall risk assessment b) One or more fall s in the last year [facility] [facility] 250 DO Work Phone: Tobacco use status [facility] b) No M [facility] [employer] 250 DO Work Phone: Cholesterol [Mass/volume] in Serum or PlasmaOrdered By: Phani Ambrocio on 11-17-2021 Cholesterol [Mass/Vol] 124 mg/dL 140-[address] [facility] Comment on above: Chol less than 200 m g/dl low risk Chol 201-239 mg/dl borderline risk Chol 240 mg/dl and greater high risk Cholesterol in LDL Calc [Mas s/Vol]Ordered By: Phani Ambrocio on 11-17-2021 Cholesterol in LDL [Mass/Vol] 73 mg/dL 0-100 [facility] Comment on above: LDL ATP III CLASSIFI CATION LDL less than 100 mg/dL Optimal LDL 100-129 mg/dL Near or above optimal LDL 130-159 mg/dL Borderline high LDL 160-189 mg/dL High LDL greater than 189 mg/dL Very high Cholesterol in VLDL Calc [Ma ss/Vol]Ordered By: Phani Ambrocio on 11-17-2021 Cholesterol in VLDL [Mass/Vol] 16 mg/dL [facility] Creatinine and Glomerular fi ltration rate.predicted panel (S/P/Bld)Ordered By: Phani Ambrocio on 11-17-2021 Creatinine [Mass/Vol] 1.03 mg/dL 0.64-1.27 [facility] Estimated glomerular filtrat ion rate (GFR) non- AmericanOrdered By: Phani Ambrocio on 11-17-2021 GFR/1.73 sq M.predicted among non-blacks MDRD (S/P/Bld) [Vol rate/Area] > 60 mL/Min [facility] No Panel InformationOrdered By: Phani Ambrocio on 11-17-2021 Estimated GFR () > 60 mL/Min [facility] Comment on above: GFR estimated refere nce range: According to KDOQI guidelines, <60 ml/min/1.73m2 is sufficient to diagnose a patient with chronic kidney disease. Pharmacy Creatinine Clearance (Chem N/A [facility] Prostate Specific Antigen Screen 1.530 ng/mL 0.000-4.000 [facility] Serum or plasma anion gap de terminationOrdered By: Phani Ambrocio on 11-17-2021 Anion gap [Moles/Vol] 14.5 mmol/L 6.0-15.[address] [facility] Serum or plasma calcium blanca urement (mass/volume)Ordered By: Phani Ambrocio on 11-17-2021 Calcium [Mass/Vol] 9.3 mg/dL 8.2-10.2 [facility] Serum or plasma chloride junior surement (moles/volume)Ordered By: Phani Ambrocio on 11-17-2021 Chloride [Moles/Vol] 102 mmol/L 95-114 [facility] Serum or plasma glucose blanca urement (mass/volume)Ordered By: Phani Ambrocio on 11-17-2021 Glucose [Mass/Vol] 129 mg/dL 70-100 [facility] Comment on above: ADA recommended refe rence range Random Glucose Reference Range is dependent on time and content of last meal. Glucose of more than 200 mg/dL in a nonstressed, ambulatory subject supports the diagnosis of Diabetes Mellitus. Serum or plasma high density lipoprotein (HDL) cholesterol measurementOrdered By: Phani Ambrocio on 11-17-2021 Cholesterol in HDL [Mass/Vol] 35 mg/dL 29-71 [facility] Comment on above: HDL CHOL ATP-III CLA SSIFICATION Cardiovascular Risk HDL > or equal to 60 mg/dL LOW HDL < 40 mg/dL HIGH Serum or plasma potassium me asurement (moles/volume)Ordered By: Phani Ambrocio on 11-17-2021 Potassium [Moles/Vol] 4.5 mmol/L 3.5-5.1 [facility] Serum or plasma sodium measu rement (moles/volume)Ordered By: Phani Ambrocio on 11-17-2021 Sodium [Moles/Vol] 135 mmol/L 136-146 [facility] Serum or plasma total carbon dioxide measurement (moles/volume)Ordered By: Phani Ambrocio on 11-17-2021 CO2 [Moles/Vol] 23.0 mmol/L 22.0-30.0 [facility] Serum or plasma total choles terol/high density lipoprotein (HDL) cholesterol mass ratOrdered By: Phani Ambrocio on 11-17-2021 Cholesterol.total/Janeen sterol in HDL [Mass ratio] 3.5 {ratio} <5.0 [facility] Serum or plasma urea nitroge n measurement (mass/volume)Ordered By: Phani Ambrocio on 11-17-2021 Urea nitrogen [Mass/Vol] 15 mg/dL 9- [facility] Triglyceride [Mass/volume] i n Serum or PlasmaOrdered By: Phani Ambrocio on 11-17-2021 Triglyceride [Mass/Vol] 82 mg/dL 35-149 F [facility] Comment on above: TRIG ATP III CLASSIF ICATION TRIG less than 150 mg/dL Normal TRIG 150-199 mg/dL Borderline high TRIG 200-500 mg/dL High TRIG greater than 500 mg/dL Very high Standard traceable to the Center for Disease Conrtrol and Prevention (CDC) test method. Microalbumin (with Creat)on 05-21-2021 mALB 2.6 mg/dL Normal [facility] Comment on above: Result Comment: mALB reference range not established. Performed By: #### m ALBC #### [facility] [address] [place], [place] [id number] mALB/Creat Ratio 14.6 MCG/MG Normal [place] [facility] [place] [facility] [facility] Comment on above: Result Comment: The ADA (Diabetes Care 26:S94-S98, 2003) defines abnormalities in Albumin excretion as follows: Category Result (MCG/MG Creatinine) Normal <30 Microalbuminuria 30-299 Clinical Albuminuria > or = 300 Performed By: #### m ALBC #### [facility] [address] [place], [place] [id number] UCREA 178 mg/dL Normal 39-259 [facility] Specialist Comment on above: Performed By: #### m ALBC #### [facility] [address] [place], [place] [id number] Complete Blood Count with Au to Diffon 05-20-2021 Basophils (Bld) [#/Vol] 0.03 10*3/uL Normal 0.00-0.20 [facility] Comment on above: Performed By: #### C BCAD, CMP, LIPD, TSH #### [facility] [address] [place], [place] [id number] Basophils/100 WBC (Bld) 0.5 % Normal N [facility] Specialist Comment on above: Performed By: #### C BCAD, CMP, LIPD, TSH #### [facility] [address] [place], [place] [id number] Eosinophils (Bld) [#/Vol] 0.09 10*3/uL Normal 0.02-0.50 [facility] Special[facility] Comment on above: Performed By: #### C BCAD, CMP, LIPD, TSH #### [facility] [address] [place], [place] [id number] Eosinophils/100 WBC (Bld) 1.4 % Normal [facility] Specialist Comment on above: Performed By: #### C BCAD, CMP, LIPD, TSH #### [facility] [address] [place], [place] [id number] Erythrocyte distribution width (RBC) [Ratio] 13.5 % Normal 11.0-15.0 [facility] Special[facility] Comment on above: Performed By: #### C BCAD, CMP, LIPD, TSH #### [facility] [address] [place], [place] [id number] Hematocrit (Bld) [Volume fraction] 45.6 % Normal 38.5-50.0 [facility] Specialist Comment on above: Performed By: #### C BCAD, CMP, LIPD, TSH #### [facility] [address] [place], [place] [id number] Hemoglobin (Bld) [Mass/Vol] 14.9 g/dL Normal 13.0-17.1 [facility] Special[facility] Comment on above: Performed By: #### C BCAD, CMP, LIPD, TSH #### [facility] [address] [place], [place] [id number] Lymphocytes (Bld) [#/Vol] 1.4 10*3/uL Normal 0.9-3.9 [facility] Special[facility] Comment on above: Performed By: #### C BCAD, CMP, LIPD, TSH #### [facility] [address] [place], [place] [id number] Lymphocytes/100 WBC (Bld) 21.8 % Normal [facility] Specialist Comment on above: Performed By: #### C BCAD, CMP, LIPD, TSH #### [facility] [address] [place], [place] [id number] MCH (RBC) [Entitic mass] 30.0 pg Normal 27.0-33.0 [facility] Special[facility] Comment on above: Performed By: #### C BCAD, CMP, LIPD, TSH #### [facility] [address] [place], [place] [id number] MCHC (RBC) [Mass/Vol] 32.7 g/dL Normal 32.0-36.0 [facility] Comment on above: Performed By: #### C BCAD, CMP, LIPD, TSH #### [facility] [address] [place], [place] [id number] MCV (RBC) [Entitic vol] 92 fL Normal 80-100 N [facility] Specialist Comment on above: Performed By: #### C BCAD, CMP, LIPD, TSH #### [facility] [address] [place], [place] [id number] Monocytes (Bld) [#/Vol] 0.6 10*3/uL Normal 0.2-0.9 [facility] Special[facility] Comment on above: Performed By: #### C BCAD, CMP, LIPD, TSH #### [facility] [address] [place], [place] [id number] Monocytes/100 WBC (Bld) 8.6 % Normal [facility] Comment on above: Performed By: #### C BCAD, CMP, LIPD, TSH #### [facility] [address] [facility] [place] [id number] Neutrophils (Bld) [#/Vol] 4.4 10*3/uL Normal 1.5-7.8 [facility] Comment on above: Performed By: #### C BCAD, CMP, LIPD, TSH #### [facility] [address] [place], [place] [id number] Neutrophils/100 WBC (Bld) 67.5 % Normal [facility] Comment on above: Performed By: #### C BCAD, CMP, LIPD, TSH #### [facility] [address] [place], [place] [id number] Platelet mean volume (Bld) [Entitic vol] 10.80 fL Normal 7.50-12.50 [facility] Comment on above: Performed By: #### C BCAD, CMP, LIPD, TSH #### [facility] [address] [facility] [place] [id number] Platelets (Bld) [#/Vol] 229 10*3/uL Normal 140-400 [facility] Comment on above: Performed By: #### C BCAD, CMP, LIPD, TSH #### [facility] [address] [facility] [place] [id number] RBC (Bld) [#/Vol] 4.96 10*6/uL Normal 4.20-5.80 [facility] Comment on above: Performed By: #### C BCAD, CMP, LIPD, TSH #### [facility] [address] [facility] [id number] RDW-SD 46.1 fL Normal 37.0-50.0 [facility] Comment on above: Performed By: #### C BCAD, CMP, LIPD, TSH #### [facility] [address] [place], [place] [id number] WBC (Bld) [#/Vol] 6.5 10*3/uL Normal 3.8-11.0 [facility] [place] [employer] Comment on above: Performed By: #### C BCAD, CMP, LIPD, TSH #### [facility] [address] [place], [place] [id number] Comprehensive Metabolic Pane stephanie 05-20-2021 Albumin [Mass/Vol] 4.3 g/dL Normal 3.6-5.1 [facility] [place] [employer] Comment on above: Performed By: #### C BCAD, CMP, LIPD, TSH #### [facility] [address] [place], [place] [id number] Albumin/Globulin [Mass ratio] 2.0 {ratio} Normal 1.0-2.5 [facility] Specialist Comment on above: Performed By: #### C BCAD, CMP, LIPD, TSH #### [facility] [address] [place], [place] [id number] ALP [Catalytic activity/Vol] 118 U/L Normal 40-129 [facility] Specialist Comment on above: Performed By: #### C BCAD, CMP, LIPD, TSH #### [facility] [address] [place] [address], [place] [id number] ALT [Catalytic activity/Vol] 13 U/L Normal 9-46 [facility] Specialist Comment on above: Result Comment: 02/11 Female reference range changed. Performed By: #### C BCAD, CMP, LIPD, TSH #### [facility] [address] [place], [place] [id number] Anion gap [Moles/Vol] 19 mmol/L Normal 12-20 [facility] Comment on above: Result Comment: Effe ctive 03/19/2019 reference range changed. Performed By: #### C BCAD, CMP, LIPD, TSH #### [facility] [address] [facility] [place] [id number] AST [Catalytic activity/Vol] 14 U/L Normal 10-40 [facility] Specialist Comment on above: Performed By: #### C BCAD, CMP, LIPD, TSH #### [facility] [address] [facility] [place] [id number] Bilirubin [Mass/Vol] 1.02 mg/dL Normal 0.30-1.20 [facility] Comment on above: Performed By: #### C BCAD, CMP, LIPD, TSH #### [facility] [address] [place], [place] [id number] BUN/CREA 24 Ratio High 6-22 [facility] Comment on above: Performed By: #### C BCAD, CMP, LIPD, TSH #### [facility] [address] [place] [address], [place] [id number] Calcium [Mass/Vol] 9.1 mg/dL Normal 8.6-10.2 [facility] Comment on above: Performed By: #### C BCAD, CMP, LIPD, TSH #### [facility] [address] [place] [address], [place] [id number] Chloride [Moles/Vol] 107 mmol/L Normal 98-107 [facility] Comment on above: Performed By: #### C BCAD, CMP, LIPD, TSH #### [facility] [address] [place] [address], [place] [id number] CO2 [Moles/Vol] 21 mmol/L Normal 20-31 [facility] Comment on above: Performed By: #### C BCAD, CMP, LIPD, TSH #### [facility] [address], [place] [id number] Creatinine [Mass/Vol] 0.8 mg/dL Normal 0.7-1.4 [facility] Comment on above: Performed By: #### C BCAD, CMP, LIPD, TSH #### [facility] [address] [place] [address], [place] [id number] eGFRAA 112 mL/min/1.73m2 Normal >60 [facility] Comment on above: Performed By: #### C BCAD, CMP, LIPD, TSH #### [facility] [address] [place] [address], [place] [id number] eGFRNAA 92 mL/min/1.73m2 Normal >60 [facility] Specialist Comment on above: Performed By: #### C BCAD, CMP, LIPD, TSH #### [facility] [address], [place] [id number] Globulin (S) [Mass/Vol] 2.2 g/dL Normal 1.9-3.7 [facility] Specialist Comment on above: Performed By: #### C BCAD, CMP, LIPD, TSH #### [facility] [address] [facility] [place] [id number] Glucose [Mass/Vol] 143 mg/dL High 65-99 [facility] Gleason Operator Comment on above: Result Comment: For FASTING Glucose --- ADA reference ranges: Normal 65-99 mg/dl Prediabetes 100-125 Diabetes >/= 126 Performed By: #### C BCAD, CMP, LIPD, TSH #### [facility] [address] [facility] [place] [id number] Potassium [Moles/Vol] 4.5 mmol/L Normal 3.5-5.[address] [facility] Specialist Comment on above: Performed By: #### C BCAD, CMP, LIPD, TSH #### [facility] [address] [facility] [place] [id number] Protein [Mass/Vol] 6.5 g/dL Normal 6.1-8.1 [facility] [employer] Comment on above: Performed By: #### C BCAD, CMP, LIPD, TSH #### [facility] [address] [facility] [place] [id number] Sodium [Moles/Vol] 142 mmol/L Normal 135-146 [facility] [employer] Operator Comment on above: Performed By: #### C BCAD, CMP, LIPD, TSH #### [facility] [address] [facility] [place] [id number] Urea nitrogen [Mass/Vol] 19 mg/dL Normal 7-25 [facility] Specialist Comment on above: Performed By: #### C BCAD, CMP, LIPD, TSH #### [facility] [address] [place] [id number] Hemoglobin A1Con 05-20-2021 EAG 148.46 Normal [facility] Specialist Comment on above: Performed By: #### A 1C #### [facility] [address] [facility] [place] [id number] HbA1c (Bld) [Mass fraction] 6.8 % High 4.0-6.0 [facility] Specialist Comment on above: Performed By: #### A 1C #### [facility] [address] [place], [place] [id number] Lipid Panelon 05-20-2021 Cholesterol [Mass/Vol] 117 mg/dL Low 125-200 No [facility] Comment on above: Result Comment: Low risk < 200mg/dL Borderline risk 201-239 mg/dl High risk > or equal to 240 Performed By: #### C BCAD, CMP, LIPD, TSH #### [facility] [address] [place], [place] [id number] Cholesterol in HDL [Mass/Vol] 39 mg/dL Low >40 [facility] Comment on above: Result Comment: High Cardiovascular Risk HDL <40 mg/dL Low Cardiovascular Risk HDL > or equal to 60 mg/dl Performed By: #### C BCAD, CMP, LIPD, TSH #### [facility] [address] [place], [place] [id number] Cholesterol in LDL [Mass/Vol] 58 mg/dL Normal [facility] Comment on above: Result Comment: LDL ATP III CLASSIFICATION LDL less than 100 mg/dl Optimal LDL 100-129 mg/dl Near or above optimal LDL 130-159 Borderline high LDL 160-189 High LDL greater than 189 mg/dl Very High Performed By: #### C BCAD, CMP, LIPD, TSH #### [facility] [address] [place] [address], [place] [id number] Cholesterol in VLDL [Mass/Vol] 20 mg/dL Normal [facility] Comment on above: Performed By: #### C BCAD, CMP, LIPD, TSH #### [facility] [address] [place] [address], [place] [id number] Cholesterol.total/Janeen sterol in HDL [Mass ratio] 3 {ratio} Normal [facility] Comment on above: Performed By: #### C BCAD, CMP, LIPD, TSH #### [facility] [address] [place], [place] [id number] Triglyceride [Mass/Vol] 99 mg/dL Normal 30-150 [facility] Comment on above: Result Comment: TRIG ATPIII CLASSIFICATIONS TRIG less than 150 mg/dl Normal TRIG 150-199 mg/dl Borderline High TRIG 200-500 mg/dl High TRIG greather than 500 mg/dl Very High Performed By: #### C BCAD, CMP, LIPD, TSH #### [facility] [address] [place] [id number] TSHon 05-20-2021 TSH 2.810 uIU/mL Normal 0.400-4.500 [facility] Gleason Operator Comment on above: Performed By: #### C BCAD, CMP, LIPD, TSH #### [facility] [address] [place], [place] [id number] Tobacco Screening.on 022 Fall risk assessment b) One or more fall s in the last year [facility] [place] [address] DO Work Phone: Heart Rate Regular [facility] [address] DO Work Phone: Tobacco use status CP b) No [facility] [address] DO Work Phone: Tobacco Screening. Yes [facility] [address] DO Work Phone: ALT (SGPT)on 01-05-2018 ALT enzyme act/vol 26 U/L Normal 10-52 [facility] Comment on above: Performed By: #### 1 [id number] ####[facility] [address] [place] [address] AST (SGOT)on 01-05-2018 AST enzyme act/vol 21 U/L Normal 13-39 [facility] Healthcare Comment on above: Performed By: #### 1 [id number] ####[facility] [address] [place] [address] CBCon 01-05-2018 Erythrocyte distribution width Auto Ratio (RBC) 14.1 % Normal 12.0-15.4 [facility] Comment on above: Performed By: #### 2 [id number] ####[facility] [address] [place] [address] Hematocrit Auto Volume Fraction (Bld) 46.0 % Normal 38.4-54.9 [facility] Healthcare Comment on above: Performed By: #### 2 [id number] ####[facility] [address] [place] [address] Hemoglobin mass conc (Bld) 14.7 g/dL Normal 12.8-17.7 [facility] Healthcare Comment on above: Performed By: #### 2 [id number] ####[facility] [address] [place] [address] MCH Auto Entitic mass (RBC) 30.2 pg Normal 27.5-32.9 [facility] Healthcare Comment on above: Performed By: #### 2 [id number] ####[facility] [address] [place] [address] MCHC Auto mass conc (RBC) 32.0 g/dL Normal 30.5-35.4 [facility] Healthcare Comment on above: Performed By: #### 2 [id number] ####[facility] [address] [place] [address] MCV Auto Entitic volume (RBC) 94.5 fL Normal 83.3-98.2 [facility] Healthcare Comment on above: Performed By: #### 2 [id number] ####[facility] [address] [place] [address] NRBC Absolute 0.00 10*3/uL Normal [facility] Healthcare Comment on above: Performed By: #### 2 [id number] ####[facility] [address] [place] [address] NRBC Automated 0.0 /100{WBCs} Normal [facility] Healthcare Comment on above: Performed By: #### 2 [id number] ####[facility] [address] [place] [address] Platelet mean volume Auto Entitic volume (Bld) 10.5 fL Normal 9.9-12.1 [facility] Healthcare Comment on above: Performed By: #### 2 [id number] ####[facility] [address] [place] [address] Platelets Auto #/vol (Bld) 199 10*3/uL Normal 155-404 [facility] Healthcare Comment on above: Performed By: #### 2 [id number] ####[facility] [address] [place] [address] RBC Auto #/vol (Bld) 4.87 10*6/uL Normal 4.08-6.37 [facility] Comment on above: Performed By: #### 2 [id number] ####[facility] [address] [place] [address] RDW SD 49.1 fL High 39.3-48.6 [facility] Comment on above: Performed By: #### 2 [id number] ####[facility] [address] [place] [address] WBC Auto #/vol (Bld) 7.7 10*3/uL Normal 4.2-11.0 [facility] Comment on above: Performed By: #### 2 [id number] ####[facility] [address] [place] [address] Creatinineon 01-05-2018 Creatinine mass conc 0.86 mg/dL Normal 0.50-1.30 [facility] Comment on above: Performed By: #### 1 [id number] ####[address] [address] GFR/1.73 sq M.predicted MDRD vol rate/area mL/min/{1.73_m2} Normal [facility] Comment on above: Result Comment: Inte rpretation for Chronic Kidney Disease:Stages 1&2 >60 Healthy or potential kidney damage.Mild decrease of GFR.Stage 3 30-59 Moderate decrease of GFR.Stage 4 15-29 Severe decrease of GFR.Stage 5 <15 Kidney failure or on dialysis. Performed By: #### 1 [id number] ####[facility] [address] [place] [address] Electrolyte Panelon 01-06-20 18 Anion gap 3 molar conc 14 mmol/L Normal 10-20 [facility] Comment on above: Performed By: #### 1 [id number] ####[facility] [address] [place] [address] Chloride molar conc 105 mmol/L Normal 98-107 [facility] Comment on above: Performed By: #### 1 [id number] ####[facility] [address] [place] [address] HCO3 molar conc (Bld) 24 mmol/L Normal 21-32 [facility] Comment on above: Performed By: #### 1 [id number] ####[facility] [address] [place] [address] Potassium molar conc 4.2 mmol/L Normal 3.5-5.1 [facility] Comment on above: Performed By: #### 1 [id number] ####[facility] [address] [place] [address] Sodium molar conc 139 mmol/L Normal 136-145 [facility] Comment on above: Performed By: #### 1 [id number] ####[facility] [address] [place] [address] Lipid Panelon 01-05-2018 Cholesterol in HDL mass conc 50 mg/dL Normal [facility] Comment on above: Result Comment: Norm al Mod Risk High Risk5-9 >48 42-48 <4210-14 >45 40-45 <4015-19 >38 34-38 <34Adult >39 Performed By: #### 1 [id number] ####[facility] [address] [place] [address] Cholesterol in LDL mass conc 59 mg/dL Normal <130 [facility] Comment on above: Performed By: #### 1 [id number] ####[facility] [address] [place] [address] Cholesterol in VLDL mass conc 18 mg/dL Normal <30 [facility] Comment on above: Performed By: #### 1 [id number] ####[facility] [address] [place] [address] Cholesterol mass conc 127 mg/dL Normal <200 [facility] Comment on above: Performed By: #### 1 [id number] ####[facility] [address] [place] [address] Cholesterol.total/Janeen sterol in HDL mass ratio 2.5 {ratio} Normal [facility] Healthcare Comment on above: Performed By: #### 1 [id number] ####[facility] [address] [place] [address] Triglyceride mass conc 92 mg/dL Normal <150 [facility] Comment on above: Result Comment: 150- 199 Borderline Pyva210-212 High>500 Very High Performed By: #### 1 [id number] ####[facility] [address] [place] [address] Urea Nitrogenon 01-05-2018 Urea nitrogen mass conc 18 mg/dL Normal 6-23 [facility] Comment on above: Performed By: #### 1 [id number] ####[facility] [address] [place] [address] Vital Signs Date Time Vital Sign Value Performing Clinician Facility 05-28-2024 15:33-0400 Body temperature 97.9 [degF] Phani Ambrocio DO Work Phone: [facility] 05-28-2024 15:33-0400 Diastolic blood pressure 83 mm[Hg] Phani Ambrocio DO Work Phone: [facility] 05-28-2024 15:33-0400 Heart rate 67 /min Phani Ambrocio DO Work Phone: [facility] 05-28-2024 15:33-0400 Respiratory rate 20 /min Phani Ambrocio DO Work Phone: [facility] 05-28-2024 15:33-0400 SaO2% (BldA) [Mass fraction] 95 % Phani Ambrocio DO Work Phone: [facility] 05-28-2024 15:33-0400 Systolic blood pressure 167 mm[Hg] Phani Ambrocio DO Work Phone: [facility] 05-28-2024 06:00-0400 Body weight 87.8 kg Phani Ambrocio DO Work Phone: [facility] 05-25-2024 15:20-0400 Body height 167.64 cm Phani Ambrocio DO Work Phone: [facility] 05-23-2024 17:05-0400 Body height 167.64 cm Phani Ambrocio DO Work Phone: [facility] 05-23-2024 17:05-0400 Body temperature 98.1 [degF] Phani Ambrocio DO Work Phone: [facility] 05-23-2024 17:05-0400 Body weight 88.8 kg Phani Ambrocio DO Work Phone: [facility] 05-23-2024 17:05-0400 Diastolic blood pressure 78 mm[Hg] Phani Ricci DO Work Phone: [facility] 05-23-2024 17:05-0400 Heart rate 66 /min Phanigayle Ambrocio DO Work Phone: [facility] 05-23-2024 17:05-0400 Respiratory rate 18 /min Phani Ricci DO Work Phone: [facility] 05-23-2024 17:05-0400 SaO2% (BldA) [Mass fraction] 95 % Phanigayle Ambrocio DO Work Phone: [facility] 05-23-2024 17:05-0400 Systolic blood pressure 175 mm[Hg] Phanigayle Ambrocio DO Work Phone: [facility] 05-18-2024 20:29-0500 Diastolic blood pressure 78 mm[Hg] Phanigayle Ambrocio DO Work Phone: [facility] 05-18-2024 20:29-0500 Heart rate 53 /min Phanigayle Ambrocio DO Work Phone: [facility] 05-18-2024 20:29-0500 Respiratory rate 24 /min Phanigayle Ambrocio DO Work Phone: [facility] 05-18-2024 20:29-0500 SaO2% (BldA) [Mass fraction] 96 % Phanigayle Ambrocio DO Work Phone: [facility] 05-18-2024 20:29-0500 Systolic blood pressure 172 mm[Hg] Phani Stevensonman DO Work Phone: [facility] 05-18-2024 16:58-0500 Body height 170.18 cm Phanigayle Ambrocio DO Work Phone: [facility] 05-18-2024 16:58-0500 Body temperature 98.6 [degF] Phani Ambrocio DO Work Phone: [facility] 05-18-2024 16:58-0500 Body weight 90 kg Phanigayle Ambrocio DO Work Phone: [facility] 03-01-2024 11:07-0500 Body mass index (BMI) [Ratio] 33.27 kg/m2 Phanigayle Ambrocio DO Work Phone: [facility] 03-01-2024 11:07-0500 Body weight 92.08 kg Phanigayle Ambrocio DO Work Phone: [facility] 03-01-2024 11:07-0500 Diastolic blood pressure 52 mm[Hg] Phani Ambrocio DO Work Phone: [facility] 03-01-2024 11:07-0500 Heart rate 49 /min Phanigayle Ambrocio DO Work Phone: [facility] 03-01-2024 11:07-0500 SaO2% (BldA) [Mass fraction] 97 % Phanigayle Ambrocio DO Work Phone: [facility] 03-01-2024 11:07-0500 Systolic blood pressure 102 mm[Hg] Phani Ambrocio DO Work Phone: [facility] 10-27-2023 15:12-0400 Body height 167.64 cm DO Phanigayle Ambrocio Work Phone: [facility] 10-27-2023 15:12-0400 Body mass index (BMI) [Ratio] 30.7 kg/m2 DO Phani Ricci Work Phone: [facility] 10-27-2023 15:12-0400 Body weight 86.18 kg DO Phani Stevensonman Work Phone: [facility] 10-27-2023 15:12-0400 Diastolic blood pressure 87 mm[Hg] DO Phani Ambrocio Work Phone: [facility] 10-27-2023 15:12-0400 Heart rate 53 /min DO Phani Ambrocio Work Phone: [facility] 10-27-2023 15:12-0400 SaO2% (BldA) [Mass fraction] 96 % DO Phani Ambrocio Work Phone: [facility] 10-27-2023 15:12-0400 Systolic blood pressure 125 mm[Hg] DO Phani Ambrocio Work Phone: [facility] 08-01-2023 15:01-0400 Body height 167.6 cm Kristofer Ortega MD Work Phone: [facility] 08-01-2023 15:01-0400 Body mass index (BMI) [Ratio] 29.86 kg/m2 Kristofer Ortega MD Work Phone: [facility] 08-01-2023 15:01-0400 Body weight 83.92 kg Kristofer Ortega MD Work Phone: [facility] 08-01-2023 15:01-0400 Diastolic blood pressure 62 mm[Hg] Kristofer Ortega MD Work Phone: [facility] 08-01-2023 15:01-0400 Heart rate 58 /min Kristofer Ortega MD Work Phone: [facility] 08-01-2023 15:01-0400 Systolic blood pressure 126 mm[Hg] Kristofer Ortega MD Work Phone: [facility] 12-01-2022 11:22-0400 Body height 168.91 cm Phani Ambrocio Work Phone: [facility] [address] DO Work Phone: 12-01-2022 11:22-0400 Body mass index (BMI) [Ratio] 31.96 kg/m2 Phani Ambrocio Work Phone: [facility] [address] DO Work Phone: 12-01-2022 11:22-0400 Body surface area Derived from formula 2.02 m2 Phani Ambrocio Work Phone: [facility] 250 DO Work Phone: 12-01-2022 11:22-0400 Body weight 91.17 kg Phani Ambrocio Work Phone: [facility] 250 DO Work Phone: 12-01-2022 11:22-0400 Diastolic blood pressure 58 mm[Hg] Phani Ambrocio Work Phone: [facility] [employer] [address] DO Work Phone: 12-01-2022 11:22-0400 Heart rate 60 /min Phani Ambrocio Work Phone: [facility] [address] DO Work Phone: 12-01-2022 11:22-0400 Systolic blood pressure 128 mm[Hg] Phani Ambrocio Work Phone: [facility] [address] DO Work Phone: 10-28-2022 13:00-0400 Body height 167.64 cm Lali Garcia Other [employer] Other 10-28-2022 13:00-0400 Body mass index (BMI) [Ratio] 33.73 kg/m2 Lali Garcia Other [employer] Other 10-28-2022 13:00-0400 Body weight 94.8 kg Lali Garcia Other [employer] Other 10-28-2022 13:00-0400 Diastolic blood pressure 61 mm[Hg] Lali Garcia Other [employer] Other 10-28-2022 13:00-0400 SaO2% (BldA) [Mass fraction] 93 % Lali Garcia Other [employer] Other 10-28-2022 13:00-0400 Systolic blood pressure 139 mm[Hg] [employer] Other [employer] Other 05-19-2022 10:42-0500 Body height 168.91 cm Phani Ambrocio [facility] [employer] DO Work Phone: 05-19-2022 10:42-0500 Body mass index (BMI) [Ratio] 34.02 kg/m2 Phani Ambrocio Work Phone: [facility] [employer] DO Work Phone: 05-19-2022 10:42-0500 Body surface area Derived from formula 2.07 m2 Phani Ambrocio Work Phone: [facility] [employer] 250 DO Work Phone: 05-19-2022 10:42-0500 Body weight 97.07 kg Phani Ambrocio Work Phone: [facility] [employer] 250 DO Work Phone: 05-19-2022 10:42-0500 Diastolic blood pressure 64 mm[Hg] Phani Ambrocio Work Phone: [facility] [employer] 250 DO Work Phone: 05-19-2022 10:42-0500 Heart rate 56 /min Phani Ambrocio Work Phone: [facility] [address] DO Work Phone: 05-19-2022 10:42-0500 Systolic blood pressure 118 mm[Hg] Phani Ambrocio Work Phone: [facility] [address] DO Work Phone: 05-13-2021 11:30-0500 Body height 168.91 cm Phani Ambrocio Work Phone: [facility] 250 DO Work Phone: 05-13-2021 11:30-0500 Body mass index (BMI) [Ratio] 35.87 kg/m2 Phani Ambrocio Work Phone: [facility] [address] DO Work Phone: 05-13-2021 11:30-0500 Body surface area Derived from formula 2.12 m2 Phani Ambrocio Work Phone: [facility] [address] DO Work Phone: 05-13-2021 11:30-0500 Body weight 102.33 kg Phani Ambrocio Work Phone: [facility] 250 DO Work Phone: 05-13-2021 11:30-0500 Diastolic blood pressure 58 mm[Hg] Phani Ambrocio Work Phone: [facility] 250 DO Work Phone: 05-13-2021 11:30-0500 Heart rate 58 /min Phani Ambrocio Work Phone: [facility] [address] DO Work Phone: 05-13-2021 11:30-0500 Systolic blood pressure 108 mm[Hg] Phani Ambrocio Work Phone: [facility] [address] DO Work Phone: Encounters Encounter Date Encounter Type Care Provider Facility Start: 05-31-2024 End: 05-31-2024 Patient encounter procedure Phani Ambrocio DO Work Phone: [facility] Comment on above: Type 2 diabetes lorenzo itus with other specified complication, without long-term current use of insulin ([facility]) (Primary Dx) Start: 05-25-2024 Non-patient / Non-visit Madison Ambrocio DO Work Phone: [facility] Work Phone: Start: 05-23-2024 End: 05-28-2024 ambulatory Phani Ambrocio Facility:[facility] Start: 05-23-2024 End: 05-28-2024 Evaluation and management of inpatient Phani Ambrocio DO Work Phone: [facility] [place] [facility] Work Phone: Start: 05-23-2024 End: 05-28-2024 observation encounter Phani Ambrocio DO Work Phone: [facility] Work Phone: Start: 05-18-2024 End: 05-18-2024 Emergency department patient visit Phani Ambrocio DO Work Phone: [facility]-Emergency Room Work Phone: Start: 05-17-2024 End: [...] minutes Phani Ambrocio DO Work Phone: 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 Start: 02-27-2024 End: 02-27-2024 ambulatory Phani Ambrocio Facility:[facility] Start: 02-23-2024 End: 02-23-2024 ambulatory [facility] Start: 11-16-2023 End: 11-17-2023 External Result Encounter Phani Ambrocio DO Work Phone: [facility] Unsolicited Start: 11-16-2023 End: 11-17-2023 External Result Encounter Phani Ambrocio DO Work Phone: [facility] Unsolicited Start: 11-16-2023 End: 11-16-2023 Patient encounter procedure DO Phani Ambrocio Work Phone: [facility] Start: 11-16-2023 End: 11-16-2023 ambulatory DO Phani Ambrocio Work Phone: [facility] Work Phone: Start: 10-27-2023 End: 10-27-2023 ambulatory DO Phani Ambrocio Work Phone: [facility] Work Phone: Start: 10-27-2023 End: 10-27-2023 Patient encounter procedure DO Phani Ambrocio Work Phone: [facility] Work Phone: Start: 08-31-2023 End: 08-31-2023 ambulatory PHANI AMBROCIO Not Available Start: 08-25-2023 End: 08-25-2023 Patient encounter procedure DO Phani Ambrocio Work Phone: [facility] Start: 08-25-2023 End: 08-25-2023 ambulatory DO Phani Ambrocio Work Phone: [facility] Work Phone: Start: 08-01-2023 End: 08-01-2023 ambulatory KRISTOFER [facility] Start: 08-01-2023 End: 08-01-2023 Office outpatient visit 25 minutes Kristofer Ortega MD Work Phone: [facility] Comment on above: Atherosclerosis of c oronary artery, unspecified vessel or lesion type, unspecified whether angina present, unspecified whether [place] or transplanted heart (Primary Dx); Status post coronary angioplasty; Hyperlipidemia, unspecified hyperlipidemia type; Type 2 diabetes mellitus without complication, unspecified whether halfway insulin use (Multi); Sleep apnea, unspecified type; Former smoker; Overweight (BMI 25.0-29.9); At risk for falls Start: 02-21-2023 End: 02-21-2023 ambulatory DO Phani Ambrocio Work Phone: [facility] Work Phone: Start: 02-21-2023 End: 02-21-2023 Patient encounter procedure DO Phani Ambrocio Work Phone: [facility] Start: 12-01-2022 Office outpatient vi sit 25 minutes Phani Ambrocio Work Phone: [facility] 250 DO Work Phone: Start: 12-01-2022 ambulatory Kristofer Taylorim Facility : Start: 10-28-2022 End: 10-28-2022 ambulatory Lali Garcia Other [employer] Other Start: 10-28-2022 Office outpatient vi sit 25 minutes Lali Garcia [facility] Start: 05-26-[address] Phani Nixon Facility:44 Start: 05-19-2022 Office outpatient vi sit 25 minutes Phani Ambrocio Work Phone: [facility] 250 DO Work Phone: Start: 05-19-2022 ambulatory Kristofer Taylorim Facility : Start: 11-17-2021 End: 11-17-2021 Patient encounter procedure DO Phani Ambrocio Work Phone: [facility] [place] Start: 09-15-2021 Rx Renewal Phani villagran Work Phone: [facility] 250 DO Work Phone: Start: 05-13-2021 Office outpatient vi sit 25 minutes Phani Ambrocio Work Phone: [facility] 250 DO Work Phone: Start: 01-15-2021 ([facility] C Vac) [facility] Co vid Vaccine Teresa Martinez [facility] Start: 01-15-2021 End: 01-15-2021 ambulatory Teresa Martinez Other [facility] Other Start: 01-05-2018 Patient encounter KRISTOFER [place] ility:[id number] Procedures Date Procedure Procedure Detail Performing Clinician Start: 05-26-2024 MRI of head Phani schwartz DO Work Phone: Start: 05-23-2024 CT of head without contrast Pahni Ambrocio DO Work Phone: Start: 05-23-2024 Plain [...] procedure 05/16/2025 11:35 AM EST Office Visit [facility] [address] [place] [phone] Checo Baeza MD [address] [place] [address] [facility] Start: 02-26-2025 Urine screening for protein Diabetes: Urine Protein Screening [facility] Start: 11-15-2024 Urine screening for protein Diabetes: Urine Protein Screening [facility] Start: 08-30-2024 End: 03-01-2025 CBC W Auto Differential panel - Blood CBC and differential Lab Routine Essential hypertension ([facility]/HCC) Medication management Expected: 08/30/2024 (Approximate), Expires: 03/01/2025 [facility] Work Phone: Comment on above: Expected: 08/30/2024 (Approximate), Expires: 03/01/2025 Start: 08-30-2024 End: 03-01-2025 Comprehensive metabolic 2000 panel - Serum or Plasma Comprehensive metabolic panel Lab Routine Essential hypertension (CMS/HCC) Medication management Expected: 08/30/2024 (Approximate), Expires: 03/01/2025 [facility] Comment on above: Expected: 08/30/2024 (Approximate), Expires: 03/01/2025 Start: 08-30-2024 End: 03-01-2025 Hemoglobin a1c with eag Hemoglobin a1c with eag Lab Routine Type 2 diabetes mellitus with other specified complication, without long-term current use of insulin (CMS/HCC) Expected: 08/30/2024 (Approximate), Expires: 03/01/2025 [facility] Comment on above: Expected: 08/30/2024 (Approximate), Expires: 03/01/2025 Start: 08-30-2024 End: 03-01-2025 Lipid 1996 panel - Serum or Plasma Lipid panel Lab Routine Mixed hyperlipidemia ([facility]/HCC) Expected: 08/30/2024 (Approximate), Expires: 03/01/2025 [facility] Comment on above: Expected: 08/30/2024 (Approximate), Expires: 03/01/2025 Start: 08-30-2024 End: 03-01-2025 Microalbumin/Creatinine panel in random Urine Microalbumin / creatinine urine ratio Lab Routine Essential hypertension ([facility]) Medication management Expected: 08/30/2024 (Approximate), Expires: 03/01/2025 [facility] Comment on above: Expected: 08/30/2024 (Approximate), Expires: 03/01/2025 Start: 08-30-2024 End: 03-01-2025 Thyrotropin [Units/volume] in Serum or Plasma TSH Lab Routine Essential hypertension ([facility]) Medication management Expected: 08/30/2024 (Approximate), Expires: 03/01/2025 [facility] Comment on above: Expected: 08/30/2024 (Approximate), Expires: 03/01/2025 Start: 08-02-2024 End: 08-02-2024 Patient encounter procedure 08/02/2024 10:45 AM EDT Office Visit [facility] [address] [place] [phone] Phani Ambrocio DO [address] [place] [address] [facility] Start: 07-02-2024 End: 07-02-2024 Patient encounter procedure 07/02/2024 3:05 PM EDT Office Visit [facility] [address] [place] [phone] Checo Baeza MD [address] [place] [address] [facility] Start: 06-27-2024 End: 06-27-2024 Patient encounter procedure 06/27/2024 10:00 AM EDT Office Visit [facility] [address] [place] [address] Soledad Matthew PA [address] [place] [address] [facility] Start: 05-28-2024 [facility] Start: 05-27-2024 Hemoglobin A1c measurement Diabetes: Hemoglobin A1C [facility] Start: 05-24-2024 Referral to rehabilitation physician [facility] Start: 05-24-2024 End: 05-24-2024 [facility] Start: 05-23-2024 Referral to neurologist [facility] Start: 05-23-2024 Physical therapy procedure [facility] Start: 05-23-2024 Referral to occupati onal therapist [facility] Start: 05-23-2024 [facility] Start: 05-23-2024 Hospital admission [facility] Start: 05-17-2024 End: 05-17-2024 Patient encounter procedure [facility] Comment on above: Arrived Start: 03-01-2024 End: 03-01-2024 Patient encounter procedure 03/01/2024 10:30 AM EST Office Visit [facility] [address] [place] [phone] Phani Ambrocio DO [address] [place] [address] [facility] Start: 02-23-2024 End: 02-23-2024 Patient encounter procedure 02/23/2024 9:30 AM EST Office Visit [facility] [address] [place] [phone] Kristofer Ortega MD [address] [place], [place] [phone] [facility] Start: 02-15-2024 Hemoglobin A1c measurement Diabetes: Hemoglobin A1C [facility] Start: 11-25-2023 Hemoglobin A1c measurement Diabetes: Hemoglobin A1C [facility] Start: 11-16-2023 [facility] Start: 11-13-2023 Influenza vaccination Influenza Vacc ine (#1) [facility] Start: 08-31-2023 COVID-19 Vaccine () COVID-19 Vaccine () [facility] Start: 08-25-2023 [facility] Start: 08-20-2023 Urine screening for protein Diabetes: Urine Protein Screening [facility] Start: 02-21-2023 [facility] Start: 01-08-2023 Glaucoma screening Diabetes: R etinopathy Screening [facility] Start: 12-01-2022 FUV, Provider: Kristofer Ortega, Status: Pen, Time: 11:10 AM FUV, Provider: Kristofer Ortega, Status: Pen, Time: 11:10 AM [facility] 250 DO Work Phone: Start: 05-26-2022 CAROTID, Provider: [place] [facility] 01,[id number], Status: Pen, Time: 8:45 AM CAROTID, Provider: [place] [facility] 01,[id number], Status: Pen, Time: 8:45 AM [facility] 250 DO Work Phone: Start: 11-25-2021 FUV, Provider: Kristofer Ortega, Status: Pen, Time: 11:00 AM FUV, Provider: Kristofer Ortega, Status: Pen, Time: 11:00 AM [facility] 250 DO Work Phone: Start: 11-17-2021 [facility] Work Phone: Start: 09-17-2020 Lipid panel Lipid Panel [facility] Start: 03-19-2020 Glaucoma screening Diabetes: R etinopathy Screening [facility] Start: 10-15-2016 Zoster Vaccines (2 of 3) Zoster Vacc vamsi (2 of 3) [facility] Start: 2002 RSV patient s and/or patients aged 60+ years (1 - 1-dose 60+ series) RSV patients and/or patients aged 60+ years (1 - 1-dose 60+ series) [facility] Start: 1964 DTaP/Tdap/Td Vaccine s (1 - Tdap) DTaP/Tdap/Td Vaccines (1 - Tdap) [facility] Start: 1961 Urine screening for protein Diabetes: Urine Protein Screening [facility] Start: 1952 Diabetic foot examination Diabetes: Foot Exam [facility] Start: 1940 Hemoglobin A1c measurement Diabetes: Hemoglobin A1C [facility] Start: 1940 Medicare Annual Well ness Visit Medicare Annual Wellness Visit (AWV) [facility] Albumin [Mass/volume ] in Serum or Plasma [facility] Albumin/Globulin ratio [facility] Anion gap measurement [facility] Basophils [#/volume] in Blood by Automated count [facility] Basophils/100 leukoc ytes in Blood by Automated count [facility] Calculated LDL cholesterol level [facility] Cholesterol.total/Ch oles terol in HDL [Mass Ratio] in Serum or Plasma [facility] Comprehensive metabo lic 2000 panel - Serum or Plasma Comprehensive metabolic panel Lab Routine 11/16/2023 1:33 PM EDT [facility] Work Phone: Electrophoresis: [id number] [facility] Electrophoresis: [id number] [facility] Electrophoresis: beta-globulin [facility] Electrophoresis: naldo ma globulin [facility] Eosinophils/100 leukocytes in Blood by Automated count [facility] Erythrocyte distribu tion width [Ratio] by Automated count [facility] Erythrocytes [#/volu me] in Blood [facility] Globulin [Mass/volum e] in Serum [facility] Glucose measurement estimated from glycated hemoglobin [facility] Work Phone: Glucose measurement estimated from glycated hemoglobin [facility] Glucose measurement estimated from glycated hemoglobin [facility] Glucose measurement estimated from glycated hemoglobin [facility] Glucose measurement estimated from [facility] hemoglobin [facility] Hematocrit [Volume Fraction] of Blood [facility] Hemoglobin [Mass/vol ume] in Blood [facility] Hemoglobin A1c/Hemoglobin.total in Blood [facility] Work Phone: Hemoglobin A1c/Hemoglobin.total in Blood [facility] IgA [Mass/volume] in Serum or Plasma [facility] IgG [Mass/volume] in Serum or Plasma [facility] IgM [Mass/volume] in Serum or Plasma [facility] Leukocytes [#/volume ] corrected for nucleated erythrocytes in Blood by Automated coun [facility] Leukocytes [#/volume ] in Blood [facility] Lipid 1996 panel - S grady or Plasma Lipid panel Lab Routine 11/16/2023 1:33 PM EDT [facility] Lymphocytes [#/volum e] in Blood by Automated count [facility] Lymphocytes/100 leukocytes in Blood by Automated count [facility] MCH [Entitic mass] b y Automated count [facility] MCHC [Mass/volume] b y Automated count [facility] MCV [Entitic volume] by Automated count [facility] Monocytes [#/volume] in Blood by Automated count [facility] Monocytes/100 leukoc ytes in Blood by Automated count [facility] Neutrophils [#/volum e] in Blood by Automated count [facility] Neutrophils/100 leukocytes in Blood by Automated count [facility] Nucleated erythrocyt es [Presence] in Blood by Automated count [facility] Patient Education Tremor Weakness [facility] Work Phone: Patient referral [facility] Work Phone: Platelet mean volume [Entitic volume] in Blood by Automated count [facility] Platelets [#/volume] in Blood [facility] Protein [Mass/volume ] in Serum or Plasma [facility] Reagin Ab [Presence] in Serum by RPR [facility] Serum immunofixation [facility] VLDL cholesterol measurement [facility] Immunizations Immunization Date Immunization Notes Care Provider Fa cility 05-23-2024 tetanus toxoid, redu sandra diphtheria toxoid, and acellular pertussis vaccine, adsorbed Phani Ambrocio DO Work Phone: [facility] 03-01-2024 Seasonal trivalent influenza vaccine, adjuvanted, preservative free Phani Ambrocio DO Work Phone: [facility] 11-29-2022 Fluad Quadrivalent 0 .5 ML Intramuscular Prefilled Syringe Phani Ambrocio Work Phone: [facility] 11-29-2022 influenza virus vaccine, unspecified formulation Phani Ambrocio DO Work Phone: [facility] 11-24-2021 influenza, high dose seasonal, preservative-free [facility] Work Phone: 01-15-2021 COVID-19 Moderna Teresa Fitt Other [facility] 01-14-2021 Moderna SARS-CoV-2 Booster Vaccination Phani Ambrocio DO Work Phone: [facility] 12-04-2020 influenza, high dose seasonal, preservative-free Phani Ambrocio Work Phone: [facility] [employer] DO Work Phone: 05-29-2020 Moderna COVID-19 Vaccine 100 MCG/0.5ML Intramuscular Suspension Phani Ambrocio Work Phone: [facility] 05-01-2020 Moderna COVID-19 Vaccine 100 MCG/0.5ML Intramuscular Suspension Phani Ambrocio Work Phone: [facility] 12-17-2019 Seasonal trivalent influenza vaccine, adjuvanted, preservative free Phani Ambrocio Work Phone: [facility] 250 DO Work Phone: 01-01-2019 pneumococcal conjuga te vaccine, 13 valent Phani Ambrocio Work Phone: [facility] 250 DO Work Phone: 12-31-2018 pneumococcal conjuga te vaccine, 13 valent Phani Ambrocio DO Work Phone: [facility] 11-12-2018 influenza virus vaccine, unspecified formulation Phani Stevensonman Work Phone: [facility] 250 DO Work Phone: 11-12-2018 influenza, seasonal, injectable Kristofer Ortega MD Work Phone: [facility] Work Phone: 09-27-2018 pneumococcal conjuga te vaccine, 13 valent Phani Escobar Ricci Work Phone: [place] [address] DO Work Phone: 09-27-2018 pneumococcal polysaccharide vaccine, 23 valent Phani Stevensonman Work Phone: [place] [address] DO Work Phone: 01-07-2018 Seasonal trivalent influenza vaccine, adjuvanted, preservative free Phani Stevensonman Work Phone: [place] [address] DO Work Phone: 12-12-2017 influenza virus vaccine, unspecified formulation Phani Stevensonman Work Phone: [place] [address] DO Work Phone: 08-20-2016 zoster vaccine, live Phani Stevensonman Work Phone: [place] [address] DO Work Phone: 06-24-2016 pneumococcal conjuga te vaccine, 13 valent Phani Stevensonman Work Phone: [facility] 250 DO Work Phone: 12-10-2015 influenza virus vaccine, unspecified formulation DO Phanigayle Ambrocio Work Phone: [facility] 12-10-2015 influenza, high dose seasonal, preservative-free Teresa Martinez Other [facility] Other 11-13-2015 influenza virus vaccine, unspecified formulation Phani Stevensonman Work Phone: [place] [address] DO Work Phone: 01-12-2015 influenza virus vaccine, unspecified formulation Phani Escobar Ricci Work Phone: [place] [address] DO Work Phone: 12-05-2014 influenza, injectabl e, quadrivalent, contains preservative Teresa Fitt Other [facility] 12-05-2014 influenza, injectabl e, quadrivalent, preservative free Phani Luz Ricci Work Phone: [place] [address] DO Work Phone: 01-14-2014 influenza, injectabl e, quadrivalent, contains preservative Teresa Fitt Other [facility] 01-12-2014 influenza virus vaccine, unspecified formulation Phani Stevensonman Work Phone: [place] [address] DO Work Phone: 11-30-2012 influenza, injectabl e, quadrivalent, contains preservative Teresa Fitt Other [facility] 03-14-2012 pneumococcal polysaccharide vaccine, 23 valent Phani A Ricci Work Phone: [place] [address] DO Work Phone: 12-02-2011 pneumococcal polysaccharide vaccine, 23 valent Teresa Fitt Other [facility] 12-02-2011 influenza, injectabl e, quadrivalent, contains preservative Teresa Fitt Other [facility] influenza virus vaccine, unspecified formulation Phani Stevensonman Work Phone: [facility] 250 DO Work Phone: Comment on above: 2013 Payers Date Payer Category Payer Self-pay [id number] [address] [facility] BCBS [id number] 2012 Unknown 2009 Unknown [id number] 2007 Medicare [id number] 2007 Medicare [id number] 1942 Unknown [id number] 9.2.355 1942 Unknown [id number] [id number] 9.2.1068 1942 Unknown [id number] [id number] 9.2.356 1942 Unknown [id number] [id number] 9.2.356 1942 Unknown [id number] [id number] 9.2.1244 1942 Unknown [id number] [id number] 9.2.1244 1942 Unknown [id number] [id number] 9.2.1259 1942 Unknown [id number] [id number] 9.2.1259 1942 Unknown [id number] [id number] 9.2.1259 Medicare [id number] Unknown [id number] [id number] 9.2.531 Unknown [id number] [id number] 9.2.531 Unknown [id number] [id number] 9.2.531 Unknown [id number] [id number] 9.2.531 Unknown [id number] 9.2.531 Social History Date Type Detail Facility Start: 08-01-2023 End: 08-31-2023 Alcohol use Alcohol use [facility] Comment on above: rarely occasional; 4 cups of coffee 12 oz cups; Start: 08-01-2023 End: 08-31-2023 Sex Assigned At [facility] Start: 1940 Sex Assigned At Male F [facility] Start: 08-25-2022 End: 04-12-2023 Tobacco smoking status NHIS Ex-smoker [facility] Work Phone: End: 06-11-1985 History of tobacco use Current smoker [facility] Work Phone: End: 06-11-1985 History of tobacco use Cigarette Smoker [facility] Work Phone: Start: 08-01-2023 Alcoholic beverage intake Ex-drinker (finding) [facility] Work Phone: Start: 1940 Sex assigned at Not on file [facility] Work Phone: Start: 07-22-2023 End: 08-01-2023 Exposure to SARS-CoV-2 (event) Not sure [facility] Start: 08-25-2022 Tobacco use and exposure Smokeless [...] Start: 05-18-2024 End: 05-28-2024 Sex Male (finding) [facility] Start: 05-23-2024 Tobacco smoking stat RUSTIS Unknown if ever smoked [facility] Start: 05-28-2024 SDOH Follow up SDOH Follow up [facility] Work Phone: Medical Equipment Procedure Code Equipment Code Equipment Origin al Text Equipment Identifier Dates [id number] Start: 08-02-2023 1 Device by Othe r route Daily Test daily [id number] Start: 08-02-2023 Goals Date Patient Goal Desired Activity /State Functional Status Date Assessment Result Facility 05-28-2024 Functional status Patient at Baseline [facility] Work Phone: 05-23-2024 Functional status Patient is Pro gressing Toward Baseline [facility] Work Phone: Mental Status Date Assessment Result Facility 05-28-2024 Cognitive function Cognitive Sta tus Patient at Baseline [facility] Work Phone: 05-23-2024 Cognitive function Cognitive Sta tus Patient Not at Baseline [facility] Work Phone: Clinical Notes 01-15-2021 to 05-28-2024 Note Date & Type Note Facility 05-28-2024 Progress note Note Date/Time May 28, 2024 10:29am [facility] [address] [place] [address] Hospitalist Progress Note Signed Patient: Des Jacob MR#: [id number] 406 : 1940 Acct:[id number] Age/Sex: 83 / M Adm Date: 5 Loc: 3T Room: [address] [place] [address] Type: ADM INOo Attending Dr: Dread Toney [...] Tablet PO 05/24/25 20:59 500 mg BID GM Administration Ondansetron HCl 4 mg 05/23/24 13:10 [...] <Electronically signed by Dread Toney DO> 05/28/24 [facility] Work Phone: 1(280) 902-136703-17-2025 [place] [address] Hospitalist Progress Note Signed Patient: Des Jacob MR#: [id number] 406 : 1940 Acct:[id number] Age/Sex: 83 / M Adm Date: 5 Loc: Room: [address] [place] [address] Type: ADM INOo Attending Dr: Dread Toney [...] DO 05/28/24 102 Signed By: 05/28/24 1029 [facility]03-16-2025 Progress note Author Dread Toney [facility] Note Date/Time May 27, 2024 11: 09am [facility] [address] [place] [address] Hospitalist Progress Note Signed Patient: Des Jacob MR#: [id number] 406 : 1940 Acct:[id number] Age/Sex: 83 / M Adm Date: 5 Loc: Room: [address] [place] [address] Type: ADM INOo Attending Dr: Dread Toney [...] Capsule PO 05/24/25 08:59 1,250 mcg Th@0900 GM Administration Fluoxetine HCl 40 mg 05/25/24 09:00 [...] signed by Dread Toney DO> 05/27/24 1109 [facility] Work Phone: 1(737) 928-467203-16-2025 [place] [id number] Hospitalist Progress Note Signed Patient: Des Jacob MR#: [id number] 406 : 1940 Acct:[id number] Age/Sex: 83 / M Adm Date: 5 Loc: 3T Room: [address] [place] [address] Type: ADM INOo Attending Dr: Dread Toney [...] Toney DO 05/27/241107 Signed By: 05/27/24 1109 [facility]03-15-2025 Progress note Author Marlo Conner [facility] Note Date/Time May 26, 2024 11: 14am [facility] [address] [place] [address] Neurology Progress Note Signed with Addenda Patient: Des Jacob MR#: [id number] 406 : 1940 Acct:[id number] Age/Sex: 83 / M Adm Date: 5 Loc: Room: [address] [place] [address] Type: ADM INOo Attending Dr: Dread Toney [...] seems like left exotropia but he switches [id number] with dominant eye, unclear chronicity. A subtle [...] Therapy Recommendations: OT Recommendations OT Recommended Discharge Residential Facility,Inpatient Rehab Unit Location PT Recommendations PT Recommended Discharge Residential Facility,Inpatient Rehab Unit Location PT Recommended Services [...] signed by Marlo Conner, > 05/26/24 0951 [facility] Work Phone: 1(690) 293-934003-15-2025 Progress note Author Dread Toney [facility] Note Date/Time May 26, 2024 10: 25am [facility] [address] [place] [address] Hospitalist Progress Note Signed Patient: Des Jacob MR#: [id number] 406 : 1940 Acct:[id number] Age/Sex: 83 / M Adm Date: 5 Loc: Room: [address] [place] [address] Type: ADM INOo Attending Dr: Dreda Toney DO Copies to: ~ Date of [...] signed by Dread Toney DO> 05/26/24 1025 [facility] Work Phone: 1(917) 419-423503-15-[address] [address] Neurology Progress Note Signed with Giulia Patient: Des Jacob MR#: [id number] 406 : 1940 Acct:[id number] Age/Sex: 83 / M Adm Date: 5 Loc: 3T Room: [id number] Type: ADM INOo Attending Dr: Dread Toney [...] seems like left exotropia but he switches hjto-fwc-wmuid with dominant eye, unclear chronicity. A subtle [...] Therapy Recommendations: OT Recommendations OT Recommended Discharge Residential Facility,Inpatient Rehab Unit Location PT Recommendations PT Recommended Discharge Residential Facility,Inpatient Rehab Unit Location PT Recommended Services [...] DO 5 0947 Signed By: 05/26/24 0951 [facility]03-15-20[place] [address] Hospitalist Progress Note Signed Patient: Des Jacob MR#: [id number] 406 : 1940 Acct:[id number] Age/Sex: 83 / M Adm Date: 5 Loc: Room: [address] [place] [address] Type: ADM INOo Attending Dr: Dread Toney [...] DO 05/26/24 102 Signed By: 05/26/24 1025 [facility]03-14-2025 Progress note Author Dread Toney [facility] Note Date/Time May 25, 2024 12: 37pm [facility] EN[facility] [address] [place] [address] Hospitalist Progress Note Signed Patient: Des Jacob MR#: [id number] 406 : 1940 Acct:[id number] Age/Sex: 83 / M Adm Date: 5 Loc: Room: [address] [place] [address] Type: ADM INOo Attending Dr: Dread Toney [...] signed by Dread Toney DO> 05/25/24 1237 [facility] Work Phone: 1(778) 822-747403-14-2025 Consult note Author Shamar Mcclain [facility] Note Date/Time May 25, 2024 11: 32am [facility] EN[facility] [address] [place] [address] Physiatry (Rehab) Consult Note Signed Patient: Des Jacob MR#: [id number] 406 : 1940 Acct:[id number] Age/Sex: 83 / M Adm Date: 5 Loc: Room: [address] [place] [address] Type: ADM INOo Attending Dr: Dread Toney [...] negative unless noted below or in HPI [facility] Medical History Sleep apnea Uses C-pap Whooping [...] chart, including current orders, allied health and regulatory consultant notes, labs/imaging and performed wall elements of exam and I formulated the plan of care and facilitated the medical decision making. I completed a substantive portion of this encounter, the medical decision makingportion of this note in its entirety, including Allied health note review, nursing note review, regulatory consultant note review, discussion with nursing and case management, and more than 50% of my time was spent on counseling and coordination of care, time spent 35 minutes Documented By: Shamar Mcclain MD 05/25/24 1125 Signed By: <Electronically signed by Shamar Mcclain MD> 05/25/24 1132 [facility] Work Phone: 1(967) 348-891103-14-[address] [address] Hospitalist Progress Note Signed Patient: Des Jacob MR#: [id number] 406 : 1940 Acct:[id number] Age/Sex: 83 / M Adm Date: 5 Loc: 3T Room: [address] [place] [address] Type: ADM INOo Attending Dr: Dread Toney [...] DO 05/25/24 1234 Signed By: 05/25/24 1237 [facility]03-14-2025 [place] [address] Physiatry (Rehab) Consult Note Signed Patient: Des Jacob MR#: [id number] 406 : 1940 Acct:[id number] Age/Sex: 83 / M Adm Date: 5 Loc: Room: [address] [place] [address] Type: ADM INOo Attending Dr: Dread Toney [...] negative unless noted below or in HPI [facility] Medical History Sleep apnea Uses C-pap Whooping [...] chart, including current orders, allied health and regulatory consultant notes, labs/imaging and performed wall elements of exam and I formulated the plan of care and facilitated the medical decision making. I completed a substantive portion of this encounter, the medical decision makingportion of this note in its entirety, including Allied health note review, nursing note review, regulatory consultant note review,discussion with nursing and case management, and more than 50% of my time was spent on counseling and coordination of care, time spent 35 minutes Documented By: Shamar Mcclain MD 05/25/24 1125 Signed By: 05/25/24 1132 [facility]03-13-2025 Progress note Author Prashant Garcia [facility] Note Date/Time May 24, 2024 3:1 2pm [facility] [address] [place] [address] Neurology Progress Note Signed Patient: Des Jacob MR#: [id number] 406 : 1940 Acct:[id number] Age/Sex: 83 / M Adm Date: 5 Loc: Room: [address] [place] [address] Type: ADM INOo Attending Dr: Dread Toney [...] seems like left exotropia but he switches dzpe-exo-aezlk with dominant eye, unclear chronicity. A subtle [...] <Electronically signed by Prashant Garcia DO> 05/24/24 1571 [facility] Work Phone: 1([phone]) 530-329003-13-2025 [place] [address] Neurology Progress Note Signed Patient: Des Jacob MR#: [id number] 406 : 1940 Acct:[id number] Age/Sex: 83 / M Adm Date: 5 Loc: 3T Room: [address] [place] [address] Type: ADM INOo Attending Dr: Dread Toney [...] seems like left exotropia but he switches ybno-azi-bjydq with dominant eye, unclear chronicity. A subtle [...] DO 05/24/24 1140 Signed By: 05/24/24 1512 [facility]03-13-2025 Progress note Author Dread Toney [facility] Note Date/Time May 24, 2024 12: 15pm [facility] EN[facility] [address] [place] [address] Hospitalist Progress Note Signed Patient: Des Jacob MR#: [id number] 406 : 1940 Acct:[id number] Age/Sex: 83 / M Adm Date: 5 Loc: Room: [address] [place] [address] Type: ADM INOo Attending Dr: Dread Toney [...] signed by Dread Toney DO> 05/24/24 1215 [facility] Work Phone: 1(107) 661-793503-13-2025 [place] [address] Hospitalist Progress Note Signed Patient: Des Jacob MR#: [id number] 406 : 1940 Acct:[id number] Age/Sex: 83 / M Adm Date: 5 Loc: 3T Room: [address] [place] [address] Type: ADM INOo Attending Dr: Dread Toney [...] DO 05/24/24 1203 Signed By: 05/24/24 1215 [facility]03-12-2025 Consult note Author Prashant Garcia [facility] Note Date/Time May 23, 2024 6:2 5pm [facility] [address] [place] [address] Neurology Consult Note Signed Patient: Des Jacob MR#: [id number] 406 : 1940 Acct:[id number] Age/Sex: 83 / M Adm Date: 5 Loc: Room: [address] [place] [address] Type: ADM INOo Attending Dr: Dread Toney DO Copies to: DO Phani Heller DO Shawn J Warner, DO~ HPI Consult Date: 05/23/24 Peanut Roaster: Prashant Garcia DO [facility] Medical History (Updated 05/23/24 @ 16:03 by [...] Clarke Jr., DDenisa05/23/2024 9:03 AM Dictation Location: [place] [address] 05/23/24 08:12 IMPRESSION: NO ACUTE INTRACRANIAL ABNORMALITY. MILD/MODERATE CHRONIC MICROVASCULAR CHANGES AND CENTRAL INVOLUTIONAL CHANGE. Impression dictated by: Romero Guerin M.D.05/23/2024 8:58 AM Dictation Location: [place] [address] Assessment/Plan (1) Recurrent falls: (2) Declining functional [...] seems like left exotropia but he switches mioi-quc-ypekc with dominant eye, unclear chronicity. A subtle [...] contrast Documented By: Prashant Garcia DO 05/23/24 4647 Signed By: <Electronically signed by Prashant Garcia DO> 05/23/24 5005 [facility] Work Phone: 1(862) 990-417603-12-2025 [place] [address] Neurology Consult Note Signed Patient: Des Jacob MR#: [id number] 406 : 1940 Acct:[id number] Age/Sex: 83 / M Adm Date: 5 Loc: 3T Room: [address] [place] [address] Type: ADM INOo Attending Dr: Dread Toney DO Copies to: DO Phani Heller DO Shawn J Warner, DO~ HPI Consult Date: 05/23/24 Peanut Roaster: Prashant Garcia DO [facility] Medical History (Updated 05/23/24 @ 16:03 by [...] Clarke Jr., D.O.05/23/2024 9:03 AM Dictation Location: [place] [address] 05/23/24 08:12 IMPRESSION: NO ACUTE INTRACRANIAL ABNORMALITY. MILD/MODERATE CHRONIC MICROVASCULAR CHANGES AND CENTRAL INVOLUTIONAL CHANGE. Impression dictated by: Romero Guerin M.D.05/23/2024 8:58 AM Dictation Location: [place] [address] Assessment/Plan (1) Recurrent falls: (2) Declining functional [...] seems like left exotropia but he switches croi-xvt-roozo with dominant eye, unclear chronicity. A subtle [...] Garcia DO 05/23/241807 Signed By: 05/23/24 1825 [facility]03-12-2025 History and physical note Author Dread Toney [facility] Note Date/Time May 23, 2024 3:4 6pm [facility] [address] [place] [address] Hospitalist H&P Signed Patient: Des Jacob MR#: [id number] 406 : 1940 Acct:[id number] Age/Sex: 83 / M Adm Date: 5 Loc: ER Room: Type: [facility] ER Attending Dr: Copies to: Elenita Munoz, [...] of Systems Unobtainable due to mental status [facility] Medical History (Updated 05/23/24 @ 15:43 by [...] % (Auto) 16.5 % (.) 05/23/24 05:10 Posey % (Auto) 9.4 % (.) 05/23/24 05:10 Eos % (Auto) 2.4 % (.) 05/23/24 05:10 Baso % (Auto) 0.4 % (.) 05/23/24 05:10 Nucleat RBC Rel Count 0.0 /100 WBC (0-0.5) 05/23/24 05:10 Neut # (Auto) 5.7 x10E3/uL (1.8-7.7) 05/23/24 05:10 Lymph # (Auto) 1.3 x10E3/uL (1.00-4.8) 05/23/24 05:10 Posey # (Auto) 0.8 x10E3/uL (0.0-0.8) 05/23/24 05:10 [...] pH 5.5 (5.0-9.0) 05/23/24 08:00 Ur Specific [place] 1.029 (1.001-1.030) 05/23/24 08:00 Urine Protein 70 [...] <Electronically signed by Dread Toney DO> 05/23/24 9575 [facility] Work Phone: 1([phone]) [phone] [place] [address] Hospitalist H&P Signed Patient: Des Jacob MR#: [id number] 406 : 1940 Acct:[id number] Age/Sex: 83 / M Adm Date: 5 Loc: ER Room: Type: [facility] ER Attending Dr: Copies to: DO Phani [...] of Systems Unobtainable due to mental status [facility] Medical History (Updated 05/23/24 @ 15:43 by [...] % (Auto) 16.5 % (.) 05/23/24 05:10 Posey % (Auto) 9.4 % (.) 05/23/24 05:10 Eos % (Auto) 2.4 % (.) 05/23/24 05:10 Baso % (Auto) 0.4 % (.) 05/23/24 05:10 Nucleat RBC Rel Count 0.0 /100 WBC (0-0.5) 05/23/24 05:10 Neut # (Auto) 5.7 x10E3/uL (1.8-7.7) 05/23/24 05:10 Lymph # (Auto) 1.3 x10E3/uL (1.00-4.8) 05/23/24 05:10 Posey # (Auto) 0.8 x10E3/uL (0.0-0.8) 05/23/24 05:10 [...] pH 5.5 (5.0-9.0) 05/23/24 08:00 Ur Specific [place] 1.029 (1.001-1.030) 05/23/24 08:00 Urine Protein 70 [...] DO 05/23/24 1537 Signed By: 05/23/24 1546 [facility]03-12-2025 Evaluation note* Diagnosis Onset Date Resolution Status Admit Date Declining functional status acute May 23, 2024 1:00pm Hypertension acute May 23, 2024 1:00pm Recurrent falls acute May 1:00pm Tremor acute May 23 1:00pm Weakness acute May 23 1:00pm [facility] Work Phone: [phone]) [phone] Evaluation note* Diagnosis Onset Date Resolution Status Admit Date Declining functional status acute May 23, 2024 1:00pm Dementia acute May 23 1:00pm Hypertension acute May 23, 2024 1:00pm Obstructive sleep apnea acute M 2024 1:00pm Orthostatic hypotension acute M 2024 1:00pm Recurrent falls acute May 1:00pm Weakness acute May 23 1:00pm Tremor inactive May 23 1:00pm [facility] Work Phone: 1(855) 825-453603-12-2025 [facility]iology [facility] [place] [address] [place] [address] CT Scan Report Signed Patient: Des Jacob MR#: [id number] 406 : 1940 Acct:[id number] Age/Sex: 83 / M ADM Date: 5 Loc: ER Room: Type: [facility] ER Attending Dr: Copies to: Elenita Munoz [...] or CT evidence of large vascular stroke. Pnbw-lw-fauariky central involutional changes and chronic small vessel ischemic disease. Intracranial vascular calcifications. Visualized intraorbital contents appear unremarkable. Visualized paranasal sinuses are clear. Right frontal scalp soft tissue swelling. No calvarial fracture. CT/CT head/brain wo con IMPRESSION: NO ACUTE INTRACRANIAL ABNORMALITY. MILD/MODERATE CHRONIC MICROVASCULAR CHANGES AND CENTRAL INVOLUTIONAL CHANGE. Impression dictated by: Romero Guerin M.D.05/23/2024 8:58 AM Dictation Location: [place] [address] Transcribed By: [facility] 05/23/24857 Dictated By: Romero Guerin MD 05/23/2455 Signed By: 05/23/2458 [facility] Work Phone: 1(338) 397-790503-07-2025 Radiology Diagnostic study [facility] [place] [address] [place] [address] CT Scan Report Signed Patient: Des Jacob MR#: [id number] 406 : 1940 Acct:[id number] Age/Sex: 83 / M ADM Date: 5 Loc: ER Room: Type: [facility] ER Attending Dr: Copies to: Floyd Moseley [...] Aurelia Michael M.D.05/18/2024 5:47 PM Dictation Location: [place] [address] Transcribed By: [facility] 05/18/241746 Dictated By: Aurelia Michael MD 05/18/241742 Signed By: 05/18/241746 [facility] Work Phone: 1(106) [phone] History of Present illness Narrative* Checo Baeza [...] Seborrheic keratosis, inflamed Right Ankle - Anterior Hunt and brown stuck on verrucous scaly papule [...] limited to risks of scarring, darker or furnace helper pigmentary changes, recurrence, incomplete removal and infection. [...] - Anterior 3. Actinic keratosis (3) Left Protem, Right Parotid Area, Right Temporal Scalp Erythematous [...] limited to risks of scarring, darker or furnace helper pigmentary changes, recurrence, incomplete removal and infection. [...] or tenderness Cryotherapy, skin lesion - Left Protem, Right Parotid Area, Right Temporal Scalp 4. Herpes zoster without complication Right Arm Grouped vesicles and erosions in a dermatomal distribution Recommend Valtrex 1 gm TID x 7 days. Notify office if worsening despite treatment. Related Medications valACYclovir (Valtrex) 1 g tablet Take 1 tablet, by mouth, three times a day x 7 days Next Visit: 1 year documented in this encounterMercy [facility]Brooks [id number] History of Present illness Narrative* Phani Ambrocio, [...] (benign prostatic hyperplasia) CAD (coronary artery disease) ([facility]) Hearing loss HTN (hypertension) ([facility]) Insomnia Type 2 diabetes mellitus ([facility]) SURGICAL HISTORY: Past Surgical History: Procedure [...] Dictated and not read. documented in this encounterMercy McCune-Brooks [id number] History of Present illness Narrative* Kristofer Ortega [...] Aricept managed by PCP. Kristofer Ortega MD, [facility] Review of Systems All other systems reviewed [...] type, unspecified whether angina present, unspecified whether ekwok or transplanted heart Follow Up In Cardiology 2. Status post coronary angioplasty 3. Hyperlipidemia, unspecified hyperlipidemia type 4. Type 2 diabetes mellitus without complication, unspecified whether adjunct faculty for medical terminology insulin use (Multi) 5. Sleep apnea, unspecified [...] exam, discussion and plan. documented in this [facility] Work Phone: 1(353) 748-499705-20-2024 Instructions* Patient Instructions* Thi Smith LPN - [...] dietary changes. 6 months documented in this [facility] Work Phone: [phone]) 817-505908-17-2023 Evaluation note* Encounter Date Diagnosis Assessment Notes Treatment Notes Treatment Clinical Notes Oct, Obstructive sleep apnea (ICD-10 - G47.33) Fortunately, the patient is using and benefiting from treatment. Download was reviewed with patient, Current pressure is controlling apnea well, And we will make no changes at this time. A prescription was sent to the [facility] for new supplies throughout the year. He [...] in a timely fashion. Do not smoke. [facility] Other 11-04-2021 Evaluation note* Encounter Date Diagnosis Assessment Notes Treatment Notes Treatment Clinical Notes Jan, Encounter for immunization (ICD-10 - Z23) Patient presents for COVID-19 vaccination BOOSTER. Pre-screening form answers evaluated with patient. Patient denies current illness or allergic reaction to component of COVID-19 vaccine. Patient provided with current copy of EUA. [facility] Other Consult note Author Prashant Garcia [facility] Note Date/Time May 23, 2024 6:2 5pm [facility] [address] [place] [address] Neurology Consult Note Signed Patient: Des Jacob MR#: [id number] 406 : 1940 Acct:[id number] Age/Sex: 83 / M Adm Date: 5 Loc: 3T Room: [address] [place] [address] Type: ADM INOo Attending Dr: Dread Toney DO Copies to: DO Phani Heller DO Shawn J Warner, DO~ HPI Consult Date: 05/23/24 Peanut Roaster: Prashant Garcia DO [facility] Medical History (Updated 05/23/24 @ 16:03 by [...] Clarke Jr., D.O.05/23/2024 9:03 AM Dictation Location: [place] [address] 05/23/24 08:12 IMPRESSION: NO ACUTE INTRACRANIAL ABNORMALITY. MILD/MODERATE CHRONIC MICROVASCULAR CHANGES AND CENTRAL INVOLUTIONAL CHANGE. Impression dictated by: Romero Guerin M.D.05/23/2024 8:58 AM Dictation Location: [place] [address] Assessment/Plan (1) Recurrent falls: (2) Declining functional [...] seems like left exotropia but he switches tjol-bjx-pzrnp with dominant eye, unclear chronicity. A subtle [...] contrast Documented By: Prashant Garcia DO 05/23/24 0195 Signed By: <Electronically signed by Prashant Garcia DO> 05/23/24 7133 [facility] Work Phone: Evaluation noteNo assessment information available [facility] Work Phone: Evaluation note* Diagnosis Atherosclerosis of coronary artery, unspecified vessel or lesion type, unspecified whether angina present, unspecified whether ekwok or transplanted heart- Primary Status post coronary angioplasty Postsurgical percutaneous transluminal coronary angioplasty status Hyperlipidemia, unspecified hyperlipidemia type Type 2 diabetes mellitus without complication, unspecified whether adjunct faculty for medical terminology insulin use (Multi) Sleep apnea, unspecified type Former smoker Personal history of tobacco use, presenting hazards to health Overweight (BMI 25.0-29.9) Overweight At risk for falls Personal history of fall documented in this encounter [facility] Work Phone: Evaluation note* Diagnosis Onset Date Resolution Status Obstructive sleep apnea acut e [facility] Work Phone: Evaluation note* Diagnosis Essential hypertension (CMS/HCC)- Primary Unspecified essential hypertension Type 2 diabetes mellitus with other specified complication, without long-term current use of insulin (CMS/HCC) Mixed hyperlipidemia (CMS/HCC) Mixed hyperlipidemia Coronary artery disease involving ekwok heart without angina pectoris, unspecified vessel or [...] HealthcareHistory and physical note Author Dread Toney [facility] Note Date/Time May 23, 2024 3:4 6pm [facility] [address] [place] [address] Hospitalist H&P Signed Patient: Des Jacob MR#: [id number] 406 : 1940 Acct:[id number] Age/Sex: 83 / M Adm Date: 5 [...] of Systems Unobtainable due to mental status [facility] Medical History (Updated 05/23/24 @ 15:43 by [...] % (Auto) 16.5 % (.) 05/23/24 05:10 Posey % (Auto) 9.4 % (.) 05/23/24 05:10 Eos % (Auto) 2.4 % (.) 05/23/24 05:10 Baso % (Auto) 0.4 % (.) 05/23/24 05:10 Nucleat RBC Rel Count 0.0 /100 WBC (0-0.5) 05/23/24 05:10 Neut # (Auto) 5.7 x10E3/uL (1.8-7.7) 05/23/24 05:10 Lymph # (Auto) 1.3 x10E3/uL (1.00-4.8) 05/23/24 05:10 [place]y # (Auto) 0.8 x10E3/uL (0.0-0.8) 05/23/24 05:10 [...] pH 5.5 (5.0-9.0) 05/23/24 08:00 Ur Specific [place] 1.029 (1.001-1.030) 05/23/24 08:00 Urine Protein 70 [...] <Electronically signed by Dread Toney DO> 05/23/24 4166 [facility] Work Phone: History general Narrative - Reported* Type Description Date Medical History hyperlipidemia Medical History hypertension Medical History DM-2 Medical History 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 Medical History mild LVH [...] angioplasty 1993 2000 Hospitalization History see above [facility] Other Reason for referral (narrative)* Consultation (Routine) - Authorized Specialty Diagnoses / Procedures Referred By Contac t Referred To Contact Cardiology Diagnoses Atherosclerosis of coronary artery, unspecified vessel or lesion type, unspecified whether angina present, unspecified whether ekwok or transplanted heart Procedures Follow Up In Cardiology Kristofer Ortega MD [address] [facility] [address], [address] [address] Kristofer Ortega MD [address] [facility] [address], [address] [place] [address] Referral ID Status Reason Start Date Expiration Date V isits Requested Visits Authorized [id number] Authorized 08/01/2023 07/31/2024 1 1 T [facility] Work Phone: Summary Purpose Family History No [...] managed by PCP. * Kristofer Ortega MD, [facility] Chief Complaint and Reason for Visit Chief [...] section and content) DATE CREATED AUTHOR 02/07/2018 [facility] Healthcare DATE CREATED AUTHOR AUTHOR'S ORGANIZ ATION 05/22/2021 [facility] dical Specialist DATE CREATED AUTHOR AUTHOR'S ORGANIZ ATION 05/28/2022 [facility] DATE CREATED AUTHOR AUTHOR'S ORGANIZ ATION 12/03/2022 [facility] DATE CREATED AUTHOR AUTHOR'S ORGANIZ ATION 12/03/2022 [facility] DATE CREATED AUTHOR AUTHOR'S ORGANIZ ATION 02/26/2024 [facility] DATE CREATED AUTHOR AUTHOR'S ORGANIZ ATION 05/19/2024 [facility] dical Specialists [facility] DATE CREATED AUTHOR AUTHOR'S ORGANIZ ATION 06/06/2024 [facility] ysician Group REASON FOR VISIT (unrecogniz ed [...] RN MSN ANP-C Attending Provider Act chanell Repairer Veneer Sheet Relationship Specialty Start Date End Date Phani Ambrocio DO [address] [place] [address] PCP - General 03/14/14 Team Status: Inactive [...] November 16, 2023 End: November 16, 2023 Repairer Veneer Sheet Relationship Specialty Start Date End Date Phani Ambrocio DO [address] [facility] [address] [place] [address] PCP - ACO Reach 08/05/22 Phani Ambrocio DO [address] [facility] [address] [place] [address] PCP - General Internal Medicine 08/26/22 Repairer Veneer Sheet Relationship Specialty Start Date End Date Phani Ambrocio DO [address] [place] [address] PCP - ACO Reach 08/05/22 Phani Ambrocio DO [address] [place] [address] PCP - General Internal Medicine 08/26/22 Repairer Veneer Sheet Relationship Specialty Start Date End Date Phani Ambrocio DO [address] [place] [address] PCP - ACO Reach 08/05/22 Phani Ambrocio DO [address] [place] [address] PCP - General Internal Medicine 08/26/22 Repairer Veneer Sheet Relationship Specialty Start Date End Date Phani Ambrocio DO [address] [place] [address] PCP - ACO Reach 08/05/22 Phani Ambrocio DO [address] [place] [address] PCP - General Internal Medicine 08/26/22 Repairer Veneer Sheet Relationship Specialty Start Date End Date Phani Ambrocio DO [address] [place] [address] PCP - ACO Reach 08/05/22 Phani Ambrocio DO [address] [place] [address] PCP - General Internal Medicine 08/26/22 Team [...] Tawnya May MD Other Provider Active Start: [facility] 2024 End: May 28, 2024 Shamar Mcclain MD Other Provider Active Start: [facility] 2024 End: May 28, 2024 Gissell [...] Tawnya May MD Other Provider Active Start: [facility] 2024 Shamar Mcclain MD Attending Provider, Other Provider Active Start: May 25, 2024 Gissell Giraldo APRN Other Provider Active St art: May 25, 2024 Berry L Belcik Jr, DO Other Provider Active S tart: May 25, 2024 Aubrey Eugene MD Other Provider Active Start: May 25, 2024 Repairer Veneer Sheet Relationship Specialty Start Date End Date Ricci Phanigayle Escobar DO [address] [place] [address] PCP - ACO Reach 08/05/22 Phani Ambrocio DO [address] [place] [address] PCP - General Internal Medicine 08/26/22 Sri [...] BE BASED ON THE PRIMARY CLINICAL RECORDS. [email or web address] provides no warranty or guarantee of the accuracy or completeness of information in this document.
[2024-06-26 01:52] LABS: Ammonia 16 umol/L (11-32)
== END 2024-06-26 01:35 | disposition home or self-care (01) ==
LOC: LAB 01:34
PROVIDERS: PCP Family Medicine; Visit Provider Family Medicine
DX: R41.82 Altered mental status, unspecified (principal)
CPT/HCPCS: 36415; 82140

== ENCOUNTER 2024-06-27 12:37 | Emergency (ER) | payer MEDICARE, BC, SELFPAY ==
[2024-06-27] VITALS (50 sets, daily range): BP systolic 142–195; BP diastolic 68–119; PULSE 56–78; TEMP 36.6; O2SAT 91–100; BMI 34.5
--- NOTE | 2024-06-27 12:45 | ECG_ITS ---
[facility] Test Date: 2024-06-27 Pat Name: DES SIMONS Department: Room: - Gender: Male [employer] Experience Expert: : [id number] Requested By: [id number] Order Number: [id number] Reading MD: NINA VILLALTA M.D. Measurements Intervals [place] Rate: 72 P: 65 [place]: 160 QRS: 61 QRSD: 84 T: 70 QT: 380 QTc: 404 Interpretive Statements 1100 Sinus rhythm 4068 Nonspecific [place] abnormality Abnormal ECG Compared to ECG 06/20/2024 16:48:07 No significant changes Electronically Signed On 06-27-2024 21:17:10 EDT by NINA VILLALTA M.D.
[2024-06-27 12:55] LABS: Basophils Absolute Auto 0.1 10^3/uL (0.0-0.1); Basophils Percent Auto 0.6 % (0.2-2.0); Eosinophils Absolute Auto 0.2 10^3/uL (0.0-0.7); Eosinophils Percent Auto 1.8 % (0.9-7.0); Hemoglobin 12.4 g/dL (14.0-18.0); Immature Granulocytes Abs Auto 0.02 10^3/uL (0.00-0.03); Immature Granulocytes Pct Auto 0.2 % (0.0-0.5); Lymphocytes Absolute Auto 1.6 10^3/uL (1.2-3.8); Lymphocytes Percent Auto 18.5 % (20.5-60.0); Mean Corpuscular HGB Conc 33.5 g/dL (29.9-35.2); Mean Corpuscular Volume 92.5 fL (80.0-94.0); Mean Platelet Volume 10.2 fL (9.5-13.5); Monocytes Absolute Auto 0.9 10^3/uL (0.3-0.8); Neutrophils Absolute Auto 6.1 10^3/uL (1.4-6.5); Neutrophils Percent Auto 68.9 % (43.0-75.0); Platelet Count 317 10^3/uL (150-450); Red Cell Distribution Width 14.4 % (11.0-15.0); White Blood Count 8.8 10^3/uL (4.0-11.0)
[2024-06-27 13:02] LABS: Glucometer 144 mg/dL (74-106)
--- NOTE | 2024-06-27 13:04 | ED.AMS1 ---
HPI - Altered Mental Status General Chief Complaint: Altered Mental Status Stated Complaint: ALTERED MENTAL STATUS Time Seen by Provider: 06/27/24 12:41 Mode of arrival: ambulance Limitations: altered mental status History of Present Illness HPI narrative: Patient presents to ED from [facility] for evaluation of altered mentation. Patient has a history of dementia but is much more lethargic than normal. He is usually ANO x 1. He does slightly wake up with repeated stimuli and try to mumble his name but it does take sternal rub and multiple asks to get him to repeat spine. Patient was apparently evaluated by neurology today and they were unable to complete the evaluation due to his lethargy. Patient was transferred over to the ER for further evaluation. He is a DNR CCA. Patient did recently have an increase in his Ativan from 0.25-0.5 twice a day. Unclear if this is causing his lethargy. No known fall or trauma. No fever. He is maintaining his airway at this time. He does have a history of depression and a lumbar spine fracture in the past. No new falls or injury. History obtained from charting and [facility] report, no history obtained from the patient Related Data Home Medications ?Medication ?Instructions ?Recorded ?Confirmed acetaminophen 325 mg tablet 650 mg PO Q6H PRN fever or pain 06/02/24 06/27/24 amlodipine 2.5 mg tablet (Norvasc) 5 mg PO DAILY 06/02/24 06/27/24 aspirin 81 mg tablet,delayed 81 mg PO DAILY 06/02/24 06/27/24 release (Adult Low Dose Aspirin) atorvastatin 40 mg tablet 40 mg PO QPM 06/02/24 06/27/24 ergocalciferol (vitamin D2) 1,250 1,250 mcg PO QWEEK 06/02/24 06/27/24 mcg (50,000 unit) capsule finasteride 5 mg tablet 5 mg PO QPM 06/02/24 06/27/24 fluoxetine 20 mg capsule 20 mg PO DAILY 06/02/24 06/27/24 melatonin 5 mg tablet 5 mg PO QPM 06/02/24 06/27/24 memantine 10 mg tablet 10 mg PO DAILY 06/02/24 06/27/24 metformin 500 mg tablet 500 mg PO BID 06/02/24 06/27/24 quetiapine 25 mg tablet (Seroquel) 25 mg PO QPM 06/02/24 06/27/24 Allergies Allergy/AdvReac Type Severity Reaction Status Date / Time No Known Drug Allergies Allergy Verified 06/02/24 12:25 Review of Systems ROS Status of ROS unobtainable due to medical condition [facility] Medical History (Updated 06/27/24 @ 19:34 by Larisa Joy MD) Zoster without complications ?B02.9 - Zoster without complications (ICD-10) Cognitive communication deficit ?R41.841 - Cognitive communication deficit (ICD-10) Dysphagia ?R13.10 - Dysphagia, unspecified (ICD-10) Tremor ?R25.1 - Tremor, unspecified (ICD-10) Major depressive disorder ?F32.9 - Major depressive disorder, single episode, unspecified (ICD-10) Atherosclerotic heart disease ?I25.10 - Atherosclerotic heart disease of [place] coronary artery without angina pectoris (ICD-10) Male erectile disorder ?N52.9 - Male erectile dysfunction, unspecified (ICD-10) Adjustment insomnia ?F51.02 - Adjustment insomnia (ICD-10) Sleep apnea ?G47.30 - Sleep apnea, unspecified (ICD-10) Dementia ?F03.90 - Unspecified dementia, unspecified severity, without behavioral disturbance, psychotic disturbance, mood disturbance, and anxiety (ICD-10) Type 2 diabetes mellitus ?E11.9 - Type 2 diabetes mellitus without complications (ICD-10) Essential (primary) hypertension ?I10 - Essential (primary) hypertension (ICD-10) BPH (benign prostatic hyperplasia) ?N40.0 - Benign prostatic hyperplasia without lower urinary tract symptoms (ICD-10) Hyperlipidemia ?E78.5 - Hyperlipidemia, unspecified (ICD-10) Difficulty in walking ?R26.2 - Difficulty in walking, not elsewhere classified (ICD-10) Muscle weakness ?M62.81 - Muscle weakness (generalized) (ICD-10) Nutritional deficiency ?E63.9 - Nutritional deficiency, unspecified (ICD-10) Orthostatic hypotension ?I95.1 - Orthostatic hypotension (ICD-10) Social History Highest level of school completed/degree received: don't know Exam Narrative Exam Narrative: Time Seen: [] Vital Signs: [Per nurse's notes.] General: Lethargic Skin: [Warm, dry, no rash.] Head: [Normocephalic, atraumatic.] Neck: [Supple, trachea midline.] Eye: [Pupils are equal, round and reactive to light, extraocular movements are intact, normal conjunctiva.] Ears, nose, mouth and throat: oral mucosa dry Cardiovascular: [Regular rate and rhythm, no murmur.] Respiratory: [Lungs are diminished bilaterally, respirations are non-labored, breath sounds are equal.] Gastrointestinal: [Soft, nontender, non distended, normal bowel sounds.] MSK: Patient appears to be moving all 4 extremities but not with any purpose not following commands Neurological: [Alert and oriented to person, , no focal neurological deficit observed.] Constitutional Vital Signs, click to edit/add: Last Vital Signs Temp 97.9 F 06/27/24 12:37 Pulse 59 L 06/27/24 18:50 Resp 13 06/27/24 18:50 BP 187/74 H 06/27/24 18:31 Pulse Ox 97 06/27/24 17:22 O2 Del Method Room Air 06/27/24 12:37 Course Vital Signs Vital signs: Vital Signs Temperature 97.9 F 06/27/24 12:37 Pulse Rate 78 06/27/24 12:37 Respiratory Rate 18 06/27/24 12:37 Blood Pressure 195/102 H 06/27/24 12:37 Pulse Oximetry 95 06/27/24 12:37 Oxygen Delivery Method Room Air 06/27/24 12:37 Temperature 97.9 F 06/27/24 12:37 Pulse Rate 59 L 06/27/24 18:50 Respiratory Rate 13 06/27/24 18:50 Blood Pressure 187/74 H 06/27/24 18:31 Pulse Oximetry 97 06/27/24 17:22 Oxygen Delivery Method Room Air 06/27/24 12:37 MDM - Altered Mental Status Differential Diagnosis Differential diagnosis: Likely altered mental status, delirium, dementia, hypoglycemia, hyponatremia, subarachnoid hemorrhage and sepsis Medical Records Attestation: I reviewed the patient's medical records. Lab Data Attestation: I reviewed the patient's lab results. Labs: Lab Results 06/27/24 06/27/24 06/27/24 Range/Units 12:48 13:00 13:03 WBC 8.8 (4.0-11.0) 10^3/uL RBC 4.00 L (4.70-6.10) 10^6/uL Hgb 12.4 L (14.0-18.0) g/dL Hct 37.0 L (42.0-54.0) % MCV 92.5 (80.0-94.0) fL MCH 31.0 (25.9-34.0) pg MCHC 33.5 (29.9-35.2) g/dL RDW 14.4 (11.0-15.0) % Plt Count 317 (150-450) 10^3/uL MPV 10.2 (9.5-13.5) fL Neut % (Auto) 68.9 (43.0-75.0) % Lymph % (Auto) 18.5 L (20.5-60.0) % [place] % (Auto) 10.0 (1.7-12.0) % Eos % (Auto) 1.8 (0.9-7.0) % Baso % (Auto) 0.6 (0.2-2.0) % Neut # (Auto) 6.1 (1.4-6.5) 10^3/uL Lymph # (Auto) 1.6 (1.2-3.8) 10^3/uL [place] # (Auto) 0.9 H (0.3-0.8) 10^3/uL Eos # (Auto) 0.2 (0.0-0.7) 10^3/uL Baso # (Auto) 0.1 (0.0-0.1) 10^3/uL Abs Immat Gran (auto) 0.02 (0.00-0.03) 10^3/uL Imm/Tot Granulo (auto) 0.2 (0.0-0.5) % PT 11.0 (9.0-11.6) sec INR 1.04 Puncture Site Rr ABG pH 7.421 (7.350-7.450) ABG pCO2 36.6 (35.0-45.0) mmHg ABG pO2 68.0 L (80.0-100.0) mmHg ABG HCO3 23.8 (22.0-26.0) mmol/L ABG O2 Saturation 93.6 % ABG Base Excess -0.7 (-2.0-2.0) mmol/L Jd Test Positive (POSITIVE) Sodium 149 H (136-145) mmol/L Potassium 4.0 (3.5-5.1) mmol/L Chloride 112 H (98-107) mmol/L Carbon Dioxide 28.1 (21.0-32.0) mmol/L Anion Gap 12.9 BUN 33.0 H (7.0-18.0) mg/dL Creatinine 1.12 (0.70-1.30) mg/dL Est GFR ( Amer) >60 (>=60 mL/min/1.73m^2) Est GFR (Non-Af Amer) >60 (>=60 mL/min/1.73m^2) BUN/Creatinine Ratio 29.5 Glucose 140 H (74-106) mg/dL Lactate 1.5 (0.4-2.0) mmol/L Calcium 8.9 (8.5-10.1) mg/dL Total Bilirubin 1.2 H (0.2-1.0) mg/dL AST 27 (15-37) U/L ALT 30 (16-63) U/L Alkaline Phosphatase 149 H (46-116) U/L Ammonia 12 (11-32) umol/L Troponin I High Sens 17.5 (4.0-76.1) pg/mL Total Protein 7.1 (6.4-8.2) g/dL Albumin 3.2 L (3.4-5.0) g/dL Globulin 3.9 g/dL Albumin/Globulin Ratio 0.8 Urine Color (YELLOW) Urine Clarity (CLEAR) Urine pH (5.0-9.0) Ur Specific [place] (1.005-1.025) Urine Protein (NEG/TRACE) mg/dL Urine Glucose (UA) (NEGATIVE) mg/dL Urine Ketones (NEGATIVE) mg/dL Urine Occult Blood (NEGATIVE) Urine Nitrite (NEGATIVE) Urine Bilirubin (NEGATIVE) Urine Urobilinogen (0.2-1.0) EU/dL Ur Leukocyte Esterase (NEGATIVE) Urine RBC (0-2) #/HPF Urine WBC (NONE SEEN) #/HPF Ur Squamous Epith Cells (NONE/RARE) #/LPF Urine Crystals (None Seen) #/HPF Urine Bacteria (NONE SEEN) #/HPF Urine Casts (NONE SEEN) #/LPF Hyaline Casts Urine Mucus (NONE SEEN) Ur Culture Indicated? POC Glucose 144 H (74-106) mg/dL 06/27/24 Range/Units 18:36 WBC (4.0-11.0) 10^3/uL RBC (4.70-6.10) 10^6/uL Hgb (14.0-18.0) g/dL Hct (42.0-54.0) % MCV (80.0-94.0) fL MCH (25.9-34.0) pg MCHC (29.9-35.2) g/dL RDW (11.0-15.0) % Plt Count (150-450) 10^3/uL MPV (9.5-13.5) fL Neut % (Auto) (43.0-75.0) % Lymph % (Auto) (20.5-60.0) % [place] % (Auto) (1.7-12.0) % Eos % (Auto) (0.9-7.0) % Baso % (Auto) (0.2-2.0) % Neut # (Auto) (1.4-6.5) 10^3/uL Lymph # (Auto) (1.2-3.8) 10^3/uL [place] # (Auto) (0.3-0.8) 10^3/uL Eos # (Auto) (0.0-0.7) 10^3/uL Baso # (Auto) (0.0-0.1) 10^3/uL Abs Immat Gran (auto) (0.00-0.03) 10^3/uL Imm/Tot Granulo (auto) (0.0-0.5) % PT (9.0-11.6) sec INR Puncture Site ABG pH (7.350-7.450) ABG pCO2 (35.0-45.0) mmHg ABG pO2 (80.0-100.0) mmHg ABG HCO3 (22.0-26.0) mmol/L ABG O2 Saturation % ABG Base Excess (-2.0-2.0) mmol/L Jd Test (POSITIVE) Sodium (136-145) mmol/L Potassium (3.5-5.1) mmol/L Chloride (98-107) mmol/L Carbon Dioxide (21.0-32.0) mmol/L Anion Gap BUN (7.0-18.0) mg/dL Creatinine (0.70-1.30) mg/dL Est GFR ( Amer) (>=60 mL/min/1.73m^2) Est GFR (Non-Af Amer) (>=60 mL/min/1.73m^2) BUN/Creatinine Ratio Glucose (74-106) mg/dL Lactate (0.4-2.0) mmol/L Calcium (8.5-10.1) mg/dL Total Bilirubin (0.2-1.0) mg/dL AST (15-37) U/L ALT (16-63) U/L Alkaline Phosphatase (46-116) U/L Ammonia (11-32) umol/L Troponin I High Sens (4.0-76.1) pg/mL Total Protein (6.4-8.2) g/dL Albumin (3.4-5.0) g/dL Globulin g/dL Albumin/Globulin Ratio Urine Color Yellow (YELLOW) Urine Clarity Clear (CLEAR) Urine pH 6.0 (5.0-9.0) Ur Specific [place] >=1.030 A (1.005-1.025) Urine Protein 100 A (NEG/TRACE) mg/dL Urine Glucose (UA) Negative (NEGATIVE) mg/dL Urine Ketones Trace A (NEGATIVE) mg/dL Urine Occult Blood Large A (NEGATIVE) Urine Nitrite Negative (NEGATIVE) Urine Bilirubin Negative (NEGATIVE) Urine Urobilinogen 2.0 A (0.2-1.0) EU/dL Ur Leukocyte Esterase Negative (NEGATIVE) Urine RBC 50-75 A (0-2) #/HPF Urine WBC 0-2 A (NONE SEEN) #/HPF Ur Squamous Epith Cells Rare (NONE/RARE) #/LPF Urine Crystals None seen (None Seen) #/HPF Urine Bacteria Trace A (NONE SEEN) #/HPF Urine Casts Seen A (NONE SEEN) #/LPF Hyaline Casts Rare Urine Mucus Trace A (NONE SEEN) Ur Culture Indicated? No POC Glucose (74-106) mg/dL ECG Data Attestation: I personally reviewed and interpreted this ECG as follows: Interpretation: EKG INTERPRETATION Time: [] 1244 Rate: [] 72 Rhythm: _ [] Sinus rhythm ST segments: _ [] No acute ST elevation or depression T waves: _ [] Ectopy: _ [] P wave/[place] interval: _ [] QRS interval: _ [] QT interval: _ [] Comparison: _ [] Comparison EKG date: [] Performed by: [self] Discharge Plan Discharge Chief Complaint: Altered Mental Status Clinical Impression: Mild dehydration, Dementia Patient Disposition: Home, Self-Care Time of Disposition Decision: 19:34 Condition: Good Prescriptions / Home Meds: No Action acetaminophen 325 mg tablet 650 mg PO Q6H PRN (Reason: fever or pain) aspirin [Adult Low Dose Aspirin] 81 mg tablet,delayed release (DR/EC) 81 mg PO DAILY atorvastatin 40 mg tablet 40 mg PO QPM ergocalciferol (vitamin D2) 1,250 mcg (50,000 unit) capsule 1,250 mcg PO QWEEK finasteride 5 mg tablet 5 mg PO QPM fluoxetine 20 mg capsule 20 mg PO DAILY melatonin 5 mg tablet 5 mg PO QPM memantine 10 mg tablet 10 mg PO DAILY metformin 500 mg tablet 500 mg PO BID amlodipine [Norvasc] 2.5 mg tablet 5 mg PO DAILY quetiapine [Seroquel] 25 mg tablet 25 mg PO QPM Print Language: Slovak Instructions: Dehydration (ED), Dementia (ED) Referrals: ADEOLA CERON [Primary Care Provider] - 1 week
[2024-06-27 13:05] LABS: ABG PCO2 36.6 mmHg (35.0-45.0); HCO3 ABG 23.8 mmol/L (22.0-26.0); pH ABG 7.421 (7.350-7.450)
[2024-06-27 13:06] LABS: Allen Test POSITIVE (POSITIVE); Base Excess ABG -0.7 mmol/L (-2.0-2.0); Oxygen Saturation ABG 93.6 %
[2024-06-27 13:07] LABS: O2 Mode ROOM AIR; Puncture Site RR
[2024-06-27 13:13] LABS: Alanine Aminotransferase 30 U/L (16-63); Albumin Globulin Ratio 0.8; Albumin Level 3.2 g/dL (3.4-5.0); Alkaline Phosphatase 149 U/L (46-116); Anion Gap 12.9; Aspartate Amino Transferase 27 U/L (15-37); BUN Creatinine Ratio 29.5; Bilirubin Total 1.2 mg/dL (0.2-1.0); Calcium 8.9 mg/dL (8.5-10.1); Carbon Dioxide 28.1 mmol/L (21.0-32.0); Chloride 112 mmol/L (98-107); Estimated GFR (African America >60 (>=60 mL/min/1.73m^2); Estimated GFR (Non-African Ame >60 (>=60 mL/min/1.73m^2); Globulin 3.9 g/dL; Glucose 140 mg/dL (74-106); Sodium 149 mmol/L (136-145); Total Protein 7.1 g/dL (6.4-8.2); Troponin I High Sensitivity 17.5 pg/mL (4.0-76.1)
[2024-06-27 13:23] LABS: Lactate/Lactic Acid 1.5 mmol/L (0.4-2.0)
[2024-06-27 13:29] LABS: Ammonia 12 umol/L (11-32); INR 1.04
[2024-06-27] MEDS: 0.9 % SODIUM CHLORIDE 500 ML IV (15:36)
--- NOTE | 2024-06-27 15:42 | PC.NURSE ---
male primo placed on patient at this time and applied to low continuous suction. pt tolerated as expected.
[2024-06-27] MEDS: LIDOCAINE 2% JELLY 10 ML UR (18:16)
--- NOTE | 2024-06-27 18:24 | PC.NURSE ---
urojet administered by this RN, male primo in place to low intermittent suction. shortly after administration of urojet, pt voided approx 350ml of dark shailesh urine with small blood clots noted. urine sample obtained, labeled with pt label and sent to lab at this time. pts brief changed and pt repositioned on ED cart.
[2024-06-27 18:42] LABS: Bilirubin Urine NEGATIVE (NEGATIVE); Blood Urine LARGE (NEGATIVE); Clarity Urine CLEAR (CLEAR); Color Urine YELLOW (YELLOW); Glucose Urine UA NEGATIVE (NEGATIVE); Ketones Urine TRACE mg/dL (NEGATIVE); Leukocyte Esterase Urine NEGATIVE (NEGATIVE); Nitrite Urine NEGATIVE (NEGATIVE); Protein Urine 100 mg/dL (NEG/TRACE); Specific Gravity Urine >=1.030 (1.005-1.025)
[2024-06-27 18:57] LABS: Bacteria Urine TRACE #/HPF (NONE SEEN); Cast Seen? SEEN #/LPF (NONE SEEN); Crystals Seen? None Seen #/HPF (None Seen); Hyaline Casts Urine RARE; Mucus Urine TRACE (NONE SEEN); RBC Urine 50-75 #/HPF (0-2); Squamous Epithelial Cell Urine RARE #/LPF (NONE/RARE); Urine Culture Indicated NO; WBC Urine 0-2 #/HPF (NONE SEEN)
[2024-06-27] MEDS: 0.9 % SODIUM CHLORIDE 1,000 ML 125 ML IV (19:15)
--- NOTE | 2024-06-27 19:30 | ED.GENADUL1 ---
HPI HPI - General Adult General Chief complaint: Altered Mental Status Stated complaint: ALTERED MENTAL STATUS Time Seen by Provider: 06/27/24 12:41 Mode of arrival: ambulance Limitations: altered mental status History of Present Illness HPI narrative: This 83-year-old male was signed out to me at shift change. He was transferred from the extended care facility where he currently resides for evaluation of decreased mentation. According to my colleague at signout he has been been declining over the course of the past several days. Due to increasing levels of agitation his Ativan has been increased from 0.25 to 0.5 mg twice daily. His workup including chest x-ray, cardiac workup, urinalysis and CT scan of the brain is negative for acute findings. The patient was seen and evaluated. He is resting comfortably in the bed. He is oriented to person. He is drinking clear liquids. His mucous membranes are somewhat dry. I reviewed his labs. He has a normal white count and hemoglobin. Electrolytes are normal with a mild elevation in his sodium and chloride today indicating possibly some degree of dehydration. Urine is negative for infection but does have blood in it which is likely related to an attempted straight cath for urine procurement.. Troponin is normal. Lactic acid is normal. At this time I feel like he is stable for return to the extended care facility for further evaluation and treatment with recommendation to consider changing his medications for agitation. We will continue IV fluids until transportation is available to return him to the extended care facility. Related Data Home Medications ?Medication ?Instructions ?Recorded ?Confirmed acetaminophen 325 mg tablet 650 mg PO Q6H PRN fever or pain 06/02/24 06/27/24 amlodipine 2.5 mg tablet (Norvasc) 5 mg PO DAILY 06/02/24 06/27/24 aspirin 81 mg tablet,delayed 81 mg PO DAILY 06/02/24 06/27/24 release (Adult Low Dose Aspirin) atorvastatin 40 mg tablet 40 mg PO QPM 06/02/24 06/27/24 ergocalciferol (vitamin D2) 1,250 1,250 mcg PO QWEEK 06/02/24 06/27/24 mcg (50,000 unit) capsule finasteride 5 mg tablet 5 mg PO QPM 06/02/24 06/27/24 fluoxetine 20 mg capsule 20 mg PO DAILY 06/02/24 06/27/24 melatonin 5 mg tablet 5 mg PO QPM 06/02/24 06/27/24 memantine 10 mg tablet 10 mg PO DAILY 06/02/24 06/27/24 metformin 500 mg tablet 500 mg PO BID 06/02/24 06/27/24 quetiapine 25 mg tablet (Seroquel) 25 mg PO QPM 06/02/24 06/27/24 Allergies Allergy/AdvReac Type Severity Reaction Status Date / Time No Known Drug Allergies Allergy Verified 06/02/24 12:25 Opioid HPI Opioid Management Most Recent Opioid Data: Last Pain Assessment 06/22/24 14:00 Last ORT Total Score 2 06/20/24 21:44 06/20/24 Last ORT Risk Category Low Risk 06/20/24 21:44 06/20/24 PFSH PFS Medical History (Updated 06/27/24 @ 19:34 by Larisa Joy MD) Zoster without complications ?B02.9 - Zoster without complications (ICD-10) Cognitive communication deficit ?R41.841 - Cognitive communication deficit (ICD-10) Dysphagia ?R13.10 - Dysphagia, unspecified (ICD-10) Tremor ?R25.1 - Tremor, unspecified (ICD-10) Major depressive disorder ?F32.9 - Major depressive disorder, single episode, unspecified (ICD-10) Atherosclerotic heart disease ?I25.10 - Atherosclerotic heart disease of [place] coronary artery without angina pectoris (ICD-10) Male erectile disorder ?N52.9 - Male erectile dysfunction, unspecified (ICD-10) Adjustment insomnia ?F51.02 - Adjustment insomnia (ICD-10) Sleep apnea ?G47.30 - Sleep apnea, unspecified (ICD-10) Dementia ?F03.90 - Unspecified dementia, unspecified severity, without behavioral disturbance, psychotic disturbance, mood disturbance, and anxiety (ICD-10) Type 2 diabetes mellitus ?E11.9 - Type 2 diabetes mellitus without complications (ICD-10) Essential (primary) hypertension ?I10 - Essential (primary) hypertension (ICD-10) BPH (benign prostatic hyperplasia) ?N40.0 - Benign prostatic hyperplasia without lower urinary tract symptoms (ICD-10) Hyperlipidemia ?E78.5 - Hyperlipidemia, unspecified (ICD-10) Difficulty in walking ?R26.2 - Difficulty in walking, not elsewhere classified (ICD-10) Muscle weakness ?M62.81 - Muscle weakness (generalized) (ICD-10) Nutritional deficiency ?E63.9 - Nutritional deficiency, unspecified (ICD-10) Orthostatic hypotension ?I95.1 - Orthostatic hypotension (ICD-10) Social History Highest level of school completed/degree received: don't know Exam Constitutional Vital Signs, click to edit/add: Last Vital Signs Temp 97.9 F 06/27/24 12:37 Pulse 59 L 06/27/24 18:50 Resp 13 06/27/24 18:50 BP 187/74 H 06/27/24 18:31 Pulse Ox 97 06/27/24 17:22 O2 Del Method Room Air 06/27/24 12:37 Course Vital Signs Vital signs: Vital Signs Temperature 97.9 F 06/27/24 12:37 Pulse Rate 78 06/27/24 12:37 Respiratory Rate 18 06/27/24 12:37 Blood Pressure 195/102 H 06/27/24 12:37 Pulse Oximetry 95 06/27/24 12:37 Oxygen Delivery Method Room Air 06/27/24 12:37 Temperature 97.9 F 06/27/24 12:37 Pulse Rate 59 L 06/27/24 18:50 Respiratory Rate 13 06/27/24 18:50 Blood Pressure 187/74 H 06/27/24 18:31 Pulse Oximetry 97 06/27/24 17:22 Oxygen Delivery Method Room Air 06/27/24 12:37 Medical Decision Making MDM Narrative Medical decision making narrative: See my transfer of care note in HPI Lab Data Lab results reviewed: Yes I reviewed the patient's lab results Labs: Lab Results 06/27/24 06/27/24 06/27/24 Range/Units 12:48 13:00 13:03 WBC 8.8 (4.0-11.0) 10^3/uL RBC 4.00 L (4.70-6.10) 10^6/uL Hgb 12.4 L (14.0-18.0) g/dL Hct 37.0 L (42.0-54.0) % MCV 92.5 (80.0-94.0) fL MCH 31.0 (25.9-34.0) pg MCHC 33.5 (29.9-35.2) g/dL RDW 14.4 (11.0-15.0) % Plt Count 317 (150-450) 10^3/uL MPV 10.2 (9.5-13.5) fL Neut % (Auto) 68.9 (43.0-75.0) % Lymph % (Auto) 18.5 L (20.5-60.0) % [place] % (Auto) 10.0 (1.7-12.0) % Eos % (Auto) 1.8 (0.9-7.0) % Baso % (Auto) 0.6 (0.2-2.0) % Neut # (Auto) 6.1 (1.4-6.5) 10^3/uL Lymph # (Auto) 1.6 (1.2-3.8) 10^3/uL [place] # (Auto) 0.9 H (0.3-0.8) 10^3/uL Eos # (Auto) 0.2 (0.0-0.7) 10^3/uL Baso # (Auto) 0.1 (0.0-0.1) 10^3/uL Abs Immat Gran (auto) 0.02 (0.00-0.03) 10^3/uL Imm/Tot Granulo (auto) 0.2 (0.0-0.5) % PT 11.0 (9.0-11.6) sec INR 1.04 Puncture Site Rr ABG pH 7.421 (7.350-7.450) ABG pCO2 36.6 (35.0-45.0) mmHg ABG pO2 68.0 L (80.0-100.0) mmHg ABG HCO3 23.8 (22.0-26.0) mmol/L ABG O2 Saturation 93.6 % ABG Base Excess -0.7 (-2.0-2.0) mmol/L Jd Test Positive (POSITIVE) Sodium 149 H (136-145) mmol/L Potassium 4.0 (3.5-5.1) mmol/L Chloride 112 H (98-107) mmol/L Carbon Dioxide 28.1 (21.0-32.0) mmol/L Anion Gap 12.9 BUN 33.0 H (7.0-18.0) mg/dL Creatinine 1.12 (0.70-1.30) mg/dL Est GFR ( Amer) >60 (>=60 mL/min/1.73m^2) Est GFR (Non-Af Amer) >60 (>=60 mL/min/1.73m^2) BUN/Creatinine Ratio 29.5 Glucose 140 H (74-106) mg/dL Lactate 1.5 (0.4-2.0) mmol/L Calcium 8.9 (8.5-10.1) mg/dL Total Bilirubin 1.2 H (0.2-1.0) mg/dL AST 27 (15-37) U/L ALT 30 (16-63) U/L Alkaline Phosphatase 149 H (46-116) U/L Ammonia 12 (11-32) umol/L Troponin I High Sens 17.5 (4.0-76.1) pg/mL Total Protein 7.1 (6.4-8.2) g/dL Albumin 3.2 L (3.4-5.0) g/dL Globulin 3.9 g/dL Albumin/Globulin Ratio 0.8 Urine Color (YELLOW) Urine Clarity (CLEAR) Urine pH (5.0-9.0) Ur Specific [place] (1.005-1.025) Urine Protein (NEG/TRACE) mg/dL Urine Glucose (UA) (NEGATIVE) mg/dL Urine Ketones (NEGATIVE) mg/dL Urine Occult Blood (NEGATIVE) Urine Nitrite (NEGATIVE) Urine Bilirubin (NEGATIVE) Urine Urobilinogen (0.2-1.0) EU/dL Ur Leukocyte Esterase (NEGATIVE) Urine RBC (0-2) #/HPF Urine WBC (NONE SEEN) #/HPF Ur Squamous Epith Cells (NONE/RARE) #/LPF Urine Crystals (None Seen) #/HPF Urine Bacteria (NONE SEEN) #/HPF Urine Casts (NONE SEEN) #/LPF Hyaline Casts Urine Mucus (NONE SEEN) Ur Culture Indicated? POC Glucose 144 H (74-106) mg/dL 06/27/24 Range/Units 18:36 WBC (4.0-11.0) 10^3/uL RBC (4.70-6.10) 10^6/uL Hgb (14.0-18.0) g/dL Hct (42.0-54.0) % MCV (80.0-94.0) fL MCH (25.9-34.0) pg MCHC (29.9-35.2) g/dL RDW (11.0-15.0) % Plt Count (150-450) 10^3/uL MPV (9.5-13.5) fL Neut % (Auto) (43.0-75.0) % Lymph % (Auto) (20.5-60.0) % [place] % (Auto) (1.7-12.0) % Eos % (Auto) (0.9-7.0) % Baso % (Auto) (0.2-2.0) % Neut # (Auto) (1.4-6.5) 10^3/uL Lymph # (Auto) (1.2-3.8) 10^3/uL [place] # (Auto) (0.3-0.8) 10^3/uL Eos # (Auto) (0.0-0.7) 10^3/uL Baso # (Auto) (0.0-0.1) 10^3/uL Abs Immat Gran (auto) (0.00-0.03) 10^3/uL Imm/Tot Granulo (auto) (0.0-0.5) % PT (9.0-11.6) sec INR Puncture Site ABG pH (7.350-7.450) ABG pCO2 (35.0-45.0) mmHg ABG pO2 (80.0-100.0) mmHg ABG HCO3 (22.0-26.0) mmol/L ABG O2 Saturation % ABG Base Excess (-2.0-2.0) mmol/L Jd Test (POSITIVE) Sodium (136-145) mmol/L Potassium (3.5-5.1) mmol/L Chloride (98-107) mmol/L Carbon Dioxide (21.0-32.0) mmol/L Anion Gap BUN (7.0-18.0) mg/dL Creatinine (0.70-1.30) mg/dL Est GFR ( Amer) (>=60 mL/min/1.73m^2) Est GFR (Non-Af Amer) (>=60 mL/min/1.73m^2) BUN/Creatinine Ratio Glucose (74-106) mg/dL Lactate (0.4-2.0) mmol/L Calcium (8.5-10.1) mg/dL Total Bilirubin (0.2-1.0) mg/dL AST (15-37) U/L ALT (16-63) U/L Alkaline Phosphatase (46-116) U/L Ammonia (11-32) umol/L Troponin I High Sens (4.0-76.1) pg/mL Total Protein (6.4-8.2) g/dL Albumin (3.4-5.0) g/dL Globulin g/dL Albumin/Globulin Ratio Urine Color Yellow (YELLOW) Urine Clarity Clear (CLEAR) Urine pH 6.0 (5.0-9.0) Ur Specific [place] >=1.030 A (1.005-1.025) Urine Protein 100 A (NEG/TRACE) mg/dL Urine Glucose (UA) Negative (NEGATIVE) mg/dL Urine Ketones Trace A (NEGATIVE) mg/dL Urine Occult Blood Large A (NEGATIVE) Urine Nitrite Negative (NEGATIVE) Urine Bilirubin Negative (NEGATIVE) Urine Urobilinogen 2.0 A (0.2-1.0) EU/dL Ur Leukocyte Esterase Negative (NEGATIVE) Urine RBC 50-75 A (0-2) #/HPF Urine WBC 0-2 A (NONE SEEN) #/HPF Ur Squamous Epith Cells Rare (NONE/RARE) #/LPF Urine Crystals None seen (None Seen) #/HPF Urine Bacteria Trace A (NONE SEEN) #/HPF Urine Casts Seen A (NONE SEEN) #/LPF Hyaline Casts Rare Urine Mucus Trace A (NONE SEEN) Ur Culture Indicated? No POC Glucose (74-106) mg/dL Discharge Plan Discharge Chief Complaint: Altered Mental Status Clinical Impression: Mild dehydration, Dementia Patient Disposition: Home, Self-Care Time of Disposition Decision: 19:34 Condition: Good Prescriptions / Home Meds: No Action acetaminophen 325 mg tablet 650 mg PO Q6H PRN (Reason: fever or pain) aspirin [Adult Low Dose Aspirin] 81 mg tablet,delayed release (DR/EC) 81 mg PO DAILY atorvastatin 40 mg tablet 40 mg PO QPM ergocalciferol (vitamin D2) 1,250 mcg (50,000 unit) capsule 1,250 mcg PO QWEEK finasteride 5 mg tablet 5 mg PO QPM fluoxetine 20 mg capsule 20 mg PO DAILY melatonin 5 mg tablet 5 mg PO QPM memantine 10 mg tablet 10 mg PO DAILY metformin 500 mg tablet 500 mg PO BID amlodipine [Norvasc] 2.5 mg tablet 5 mg PO DAILY quetiapine [Seroquel] 25 mg tablet 25 mg PO QPM Print Language: Camb[place]ian Instructions: Dehydration (ED), Dementia (ED) Referrals: ADEOLA CERON [Primary Care Provider] - 1 week
--- NOTE | 2024-06-28 11:39 | SWNOTE1 ---
MAURICIO faxed ED note over to Kamla at [facility] as pt is from facility and they requested for continuity of care.
== END 2024-06-27 21:11 | disposition home or self-care (01) ==
PROVIDERS: Emergency Medicine; Emergency Provider Emergency Medicine; PCP Family Medicine
DX: E86.0 Dehydration (principal); F03.90 Unspecified dementia, unspecified severity, without behavioral disturbance, psychotic disturbance, mood disturbance, and anxiety; R45.1 Restlessness and agitation; Z79.899 Other long term (current) drug therapy; Z66 Do not resuscitate; F32.A Depression, unspecified
CPT/HCPCS: 36415; 36600; 70450; 71045; 80053; 81001; 82140; 82805; 82948; 83605; 84484; 85025; 85610; 87040; 93005; 99285

== ENCOUNTER 2024-06-28 09:29 | Outpatient (OUT) | payer MEDICARE, BC, SELFPAY ==
--- OUTSIDE RECORDS SUMMARY | 2024-06-28 09:42 | XMS_ITS | CCD ---
Author Organization [facility] Care Team Providers Care Blow Molder Name Role Phone KRISTOFER ORTEGA Unavailable Unavailable GABRIELA JOHNSON Unavailable Unavailable Phani Ambrocio Unavailable Unavailable Unavailable Teresa Martinez Unavailable DO Phani Ambrocio Primary Care Provider [phone] DO Phani Ambrocio Attending Provider Dr. Phani Ambrocio Primary Care Kristofer Petersen Attending Unavailable Lali Garcia Unavailable Kristofer Ortega Attending Unavailable Kristofer Ortega Referring Unavailable Dr. Phani Ambrocio Primary Care Kristofer Petersen Attending Unavailable Kristofer Ortega Referring Unavailable Dr. Phani Ambrocio Primary Care DO hPani Julian Primary Care Provider SEDA Lynch Attending Provider Phani Ambrocio DO Primary Care Provider [phone] DO Phani Ambrocio Primary Care Provider DO Phani Ambrocio Attending Provider [phone] KRISTOFER ORTEGA Attending Unavailable PHANI AMBROCIO Primary Care Unavailable KRISTOFER ORTEGA Attending Unavailable PHANI AMBROCIO Primary Care Unavailable KRISTOFER ORTEGA Referring Unavailable Phani Ambrocio DO Unavailable Phani Ambrocio DO Primary Care Provider [phone] CHECO BAEZA Attending Unavailable PHANI AMBROCIO Attending Unavailable PHANI AMBROCIO Attending Unavailable PHANI AMBROCIO Referring Unavailable Phani Ambrocio DO Primary Care Provider Phani Ambrocio DO Attending Provider [phone] Pradip SMITH, Floyd Emergency Provider Alexander Elenita Emergency Provider Dread Toney DO Admit Provider Dread Toney DO Attending Provider [phone] Prashant Garcia DO Other Provider Phani Ambrocio DO Primary Care Provider Tawnya May MD Other Provider Shamar Mcclain MD Other Provider Gissell Giraldo APRN Other Provider German Ngo DO Other Provider Aubrey Eugene MD Other Provider [phone] [facility] Sri STACK Unavailable Unavailable Phani Ambrocio Primary Care Unavailable Prashant Garcia Consulting Unavailable Dread Toney Attending Unavailable Dread Toney Admitting Unavailable Tawnya May Consulting Unavailable Shamar Mcclain Consulting Unavailable Gissell Giraldo Consulting Unavailable German Ngo Jr Consulting UnavailAubrey Aguilar Consulting Unavaila Phani Keyes Admitting Unavailable Phani Ambrocio Attending Unavailable Phani Ambrocio Primary Care Unavailable Phani Ambrocio Admitting Unavailable Phani Ambrocio Attending Unavailable Phani Ambrocio Primary Care Unavailable Phani Ambrocio Admitting Unavailable Phani Ambrocio Attending Unavailable Ricci, Phani Primary Care Unavailable Ricci, Phani Primary Care Unavailable Floyd Moseley Attending Unavailable Floyd Moseley Admitting Unavailable Allergies Allergy Classification Reported Allergen(s) Allergy Type Date of Onset Reaction(s) Facility (17 sources) dulaglutide Drug Allergy 08-25-2022 [facility] Healthcare Medications Current Medications Medication Drug Class(es) Dates Sig (Normalized) Sig (Original) amLODIPine 5 mg oral tablet (2 sources) Dihydropyridine Calcium Channel Brittany take 1 tablet by mouth once daily amLODIPine (Norvasc) 5 MG tablet Take 5 mg by mouth Daily Active aspirin 81 mg delayed release oral tablet [...] Active donepezil hydrochloride 10 mg oral tablet (20 sources) Start: 01-03-2024 End: 05-28-2024 take 1 [...] Start: 06-08-2022 take 2 tablets by mo ut once daily at bedtime donepezil (Aricept) 5 mg tablet Take 2 tablets (10 mg) by mouth once daily at bedtime. 06/08/2022 Active take 1 tablet by erica th at bedtime Donepezil HCl - 10 MG Oral Tablet take 1 tablet by mouth at bedtime Quantity: 90 Refills: 1 Ordered: 01-Dec-2022 DO Active ergocalciferol 1.25 mg oral capsule (3 sources) Provitamin D2 Compound Start: 05-28-2024 Ergocalciferol (Soni min D2) 1,250 mcg (50,000 unit) Capsule Active 1250 MCG PO Th@0900 5 May 28, 2024 12:00am take 1 capsule by mouth every we ek ergocalciferol (Vitamin D-2) 1.25 MG (63445 UT) capsule Take 1.25 mg by mouth 1 (one) time per week Active finasteride 5 mg oral tablet (20 sources) [...] 12:00am isopropyl alcohol 0.7 ml/ml medicated pad (17 sources) Start: 12-10-2022 Alcohol Sheets (Alcoh-Wipe) sheet Indications: Type 2 diabetes mellitus with other specified complication, unspecified whether residential insulin use (CMS/HCC) Test daily before all meals/snacks and once before bedtime. 1 each 12/10/2022 Active LORazepam 0.5 mg oral tablet (2 sources) Benzodiazepine take 1 tablet by mouth in the morning LORazepam (Ativan) 0.5 MG tablet Take 0.5 mg by mouth in the morning and 0.5 mg before bedtime. Active melatonin 5 mg oral tablet (2 sources) melatonin 5 MG tablet Take by mouth Active memantine hydrochloride 10 mg oral tablet (20 sources) E-fjhtbi-Y-aspartate Receptor Antagonist Start: 05-07-2024 take 1 tablet by mouth in the morning memantine (Namenda) 10 MG tablet Indications: MCI (mild cognitive impairment) Take 1 tablet by mouth in the morning and 1 tablet before bedtime. 180 tablet 05/07/2024 Active Start: 08-31-2023 End: 02-27-2024 take 1 tablet [...] complication, without long-term current use of insulin Take 1 tablet (500 mg) by mouth [...] Active midodrine hydrochloride 2.5 mg oral tablet (9 sources) alpha-Adrenergic Agonist Start: 05-04-2024 take 1 [...] Start: 07-10-2018 take 1 tablet by erica once daily Multivitamin Active 1 TAB PO Daily July 10, 2018 12:00am nystatin 773933 unt/ml / triamcinolone acetonide 1 mg/ml topical cream (17 sources) Polyene Antifungal, Corticosteroid nystatin-triamcinolo ne (Mycolog II) cream Apply topically 2 (two) times a day. Active Nystatin-Triamcinol one 615044-5.1 UNIT/GM-% (2 sources) Nystatin-Triamci nolone 560018-5.1 UNIT/GM-% 1 application to affected area Externally Twice a day Active QUEtiapine 25 mg oral tablet (2 sources) Atypical Antipsychotic take 1 tablet by mouth at bedtime QUEtiapine (SEROquel) 25 MG tablet Take 25 mg by mouth at bedtime Active sildenafil 20 mg oral tablet (4 sources) Phosphodiesterase 5 Inhibitor Start : 08-09 Sildenafil Citrate 20 MG 5 tablets Orally [...] 12/01/2023 Active valACYclovir 1000 mg oral tablet (8 sources) Herpesvirus Nucleoside Analog DNA Polymerase Inhibitor, Herpes Simplex Virus Nucleoside Analog DNA Polymerase Inhibitor, Herpes Zoster Virus Nucleoside Analog DNA Polymerase Inhibitor Start: 05-24-2024 Valacyclovir 1 gram tablet Active 1000 MG PO Three times daily May 24, 2024 12:00am Start: 05-17-2024 take 1 tablet by erica th three times daily valACYclovir (Valtrex) 1 g [...] 10, 2018 12:00am May 18, 2024 7:02pm [place] 2-Csy-Vid-Fish Oil (Fish Oil) 1,000 mg (120 mg-180 mg) Capsule (8 sources) Start: 07-10-2018 End: 05-18-2024 take 1 capsule by mouth once daily [place] 2-Htv-Iyy-Fish Oil (Fish Oil) 1,000 mg (120 mg-180 mg) Capsule Discontinued 1 CAP PO Daily July 10, 2018 12:00am May 18, 2024 7:02pm Start: 07-10-2018 take 1 capsule by [facility] once daily [place] 9-Mrp-Elt-Fish Oil (Fish Oil) 1,000 mg (120 mg-180 mg) Capsule Active 1 CAP PO Daily July 09, 2018 11:00pm Start: 07-10-2018 take 1 capsule by [facility] once daily [place] 3-Omg-Imi-Fish Oil (Fish Oil) 1,000 mg (120 mg-180 [...] disease (20 sources) Atherosclerotic heart disease of [place] coronary artery without angina pectoris; Translations: [Coronary atherosclerosis] Onset: 01-05-2018 08-01-2023 Chronic Coronary atherosclerosis and other heart disease (1 source) Coronary atherosclerosis and other heart disease Onset: 01-05-2018 Delirium, dementia, and amnestic and other cognitive disorders (5 sources) Dementia; Translations: [Unspecified dementia without behavioral disturbance] Onset: 05-23-2024 05-25-2024 Chronic Diabetes mellitus with complications (20 sources) Type 2 diabetes mellitus; Translations: [Type [...] [Weakness] Onset: 05-23-2024 05-18-2024 Episodic Mood disorders (20 sources) Depressive disorder; Translations: [Other specified depressive episodes] Onset: 08-20-2022 Chronic Other aftercare (1 source) Patient encounter status; Translations: [Other residential (current) drug therapy] 03-01-2024 Episodic Other circulatory [...] Other hereditary and degenerative nervous system conditions (18 sources) Impaired cognition; Translations: [Mild cognitive impairment, [...] Chronic Other nutritional; endocrine; and metabolic disorders (18 sources) Obesity caused by energy imbalance; Translations: [...] (1 source) Other specified health status Episodic Residual codes; unclassified (2 sources) Amnesia; Translations: [Other amnesia] 06-27-2024 Episodic Residual codes; unclassified (2 sources) Lack of awareness; Translations: [Unspecified symptoms and signs involving cognitive functions and awareness] 06-27-2024 Episodic Unclassified (2 sources) Athscl heart disease of [place] coronary artery w/o ang pctrs / I25.10(ICD-9) Onset: 01-05-2018 Unclassified (1 source) Coronary angioplasty status / Z98.61(ICD-9) Onset: 01-05-2018 Unclassified (1 source) A [facility] screening has identified you as FRAIL [...] Four Ways to Beat the Frailty Risk [email or web address] mwryy-jag-jfibvxifhs/ vvxz-agzmrw-lttd-ways -cs-fhpv-sqk-fra ilty-risk 05-28-2024 Viral infection (1 source) Herpes [...] symptoms (LUTS)] Resolved: 05-13-2021 Chronic Mood disorders (17 sources) Mood disorders Onset: 08-31-2023 08-31-2023 Other [...] Test Name Value Interpretation Reference Range Facility ALL AMMONIAon 06-26-2024 Ammonia (P) [Moles/Vol] 16 umol/L 11 - 32 umol/L [facility] Basic Metabolic Panelon 05-12 Anion gap [Moles/Vol] 9.9 mmol/L Normal 6.0-15.0 [facility] Comment on above: Performed By: #### C BCNO, BMP, MG #### [facility] [address] [place] [address] [place] Calcium [Mass/Vol] 8.3 mg/dL Low 8.6-10.3 [facility] Comment on above: Performed By: #### C BCNO, BMP, MG #### [facility] [address] [place] [id number] [place] Chloride [Moles/Vol] 107 mmol/L Normal 98-107 [facility] Comment on above: Performed By: #### C BCNO, BMP, MG #### [facility] [address] [place] [id number] [place] CO2 [Moles/Vol] 26.3 mmol/L Normal 21.0-31.0 [facility] Comment on above: Performed By: #### C BCNO, BMP, MG #### [facility] [address] [place] [id number] [place] Creatinine [Mass/Vol] 0.90 mg/dL Normal 0.70-1.30 [facility] Comment on above: Performed By: #### C BCNO, BMP, MG #### [facility] [address] [place] [address] [place] Creatinine Clr Calc Pharmacy 66.83 Normal [facility] Comment on above: Performed By: #### C BCNO, BMP, MG #### [facility] [address] [place] [address] [place] GFR/1.73 sq M.predicted MDRD (S/P/Bld) [Vol rate/Area] mL/min/{1.73_m2} Normal [facility] Comment on above: Performed By: #### C BCNO, BMP, MG #### [facility] [address] Glucose [Mass/Vol] 126 mg/dL High 70-100 [facility] Comment on above: Result Comment: [place] Glucose Reference Range is dependent on time and content of last meal. Glucose of more than 200 mg/dL in a nonstressed, ambulatory subject supports the diagnosis of Diabetes Mellitus. ADA recommended reference range Performed By: #### C BCNO, BMP, MG #### [facility] [address] [place] [address] [place] Potassium [Moles/Vol] 4.2 mmol/L Normal 3.5-5.1 [facility] Comment on above: Performed By: #### C BCNO, BMP, MG #### [facility] [address] [place] [address] [place] Sodium [Moles/Vol] 139 mmol/L Normal 136-145 [facility] Comment on above: Performed By: #### C BCNO, BMP, MG #### [facility] [address] [place] [id number] [facility] Urea nitrogen [Mass/Vol] 24 mg/dL Normal 7-25 [facility] Comment on above: Performed By: #### C BCNO, BMP, MG #### [facility] [address] [place] [address] [place] Calcium [Mass/volume] in Ser um or PlasmaOrdered By: Dread Toney on 05-28-2024 Calcium [Mass/Vol] Calcium [Mass/volume ] in Serum or Plasma Low 8.6-10.3 [facility] Carbon dioxide, total [Moles /volume] in Serum or PlasmaOrdered By: Dread Toney on 05-28-2024 CO2 [Moles/Vol] Carbon dioxide, tota l [Moles/volume] in Serum or Plasma 21.0-31.0 [facility] Chloride [Moles/volume] in S grady or PlasmaOrdered By: Dread Toney on 05-28-2024 Chloride [Moles/Vol] Chloride [Moles/volume] in Serum or Plasma 98-107 [facility] Creatinine [Mass/volume] in Serum or PlasmaOrdered By: Dread Toney on 05-28-2024 Creatinine [Mass/Vol] Creatinine [Mass/volume] in Serum or Plasma 0.70-1.30 [facility] Erythrocyte distribution wid th Auto (RBC) [Ratio]Ordered By: Dread Toney on 05-28-2024 Erythrocyte distribution width (RBC) [Ratio] Erythrocyte distribution width [Ratio] by Automated count 12.0-14.8 [facility] Glucose Glucometer (BldC) [M ass/Vol]Ordered By: Dread Toney on 05-28-2024 Glucose [Mass/Vol] Capillary blood glucose measurement by glucometer (mass/volume) [facility] Comment on above: Random Glucose Refer ence Range is dependent on time and content of last meal. Glucose of more than 200 mg/dL in a nonstressed, ambulatory subject supports the diagnosis of Diabetes Mellitus. Glucose Poct Glucometerson 0 05-28-2024 Glucose [Mass/Vol] 215 mg/dL Normal [facility] Comment on above: Result Comment: [place] Glucose Reference Range is dependent on time and content of last meal. Glucose of more than 200 mg/dL in a nonstressed, ambulatory subject supports the diagnosis of Diabetes Mellitus. PERFORMED BY: [place] [address] PATHOLOGIST PRESCHOOL DIRECTOR JOSUE DAMON M.D. Performed By: #### C BCNO, BMP, MG #### [address] Glucose [Mass/Vol] 127 mg/dL Normal [facility] Comment on above: Result Comment: [place] om Glucose Reference Range is dependent on time and content of last meal. Glucose of more than 200 mg/dL in a nonstressed, ambulatory subject supports the diagnosis of Diabetes Mellitus. PERFORMED BY: [facility] [address] [place] [address] PATHOLOGIST PRESCHOOL DIRECTOR JOSUE DAMON M.D. Performed By: #### C FRANNIE BHATTI MG #### [facility] [address] [place] [address] [place] Glucose [Mass/volume] in Ser um or PlasmaOrdered By: Dread Toney on 05-28-2024 Glucose [Mass/Vol] Glucose [Mass/volume ] in Serum or Plasma High 70-100 [facility] Comment on above: ADA recommended refe rence rangeRandom Glucose Reference Range is dependent on time and content of last meal. Glucose of more than 200 mg/dL in a nonstressed, ambulatory subject supports the diagnosis of Diabetes Mellitus. Hematocrit Auto (Bld) [Volum e fraction]Ordered By: Dread Toney on 05-28-2024 Hematocrit (Bld) [Volume fraction] Hematocrit [Volume Fraction] of Blood by Automated count Low 38.8-50.0 [facility] Hemoglobin [Mass/volume] in BloodOrdered By: Dread Toney on 05-28-2024 Hemoglobin (Bld) [Mass/Vol] Hemoglobin [Mass/volume] in Blood Low 13.0-17.0 [facility] Hemogram CBC Without Diffon 05-28-2024 Erythrocyte distribution width (RBC) [Ratio] 14.1 % Normal 12.0-14.8 [facility] Comment on above: Performed By: #### C FRANNIE BHATTI, MG #### [facility] [address] Hematocrit (Bld) [Volume fraction] 36.2 % Low 38.8-50.0 [facility] Comment on above: Performed By: #### C FRANNIE BHATTI, MG #### [facility] [address] [place] [address] [place] Hemoglobin (Bld) [Mass/Vol] 12.3 g/dL Low 13.0-17.0 [facility] Comment on above: Performed By: #### C BCNO, BMP, MG #### [address] MCH (RBC) [Entitic mass] 30.9 pg Normal 27.5-35.2 [facility] Comment on above: Performed By: #### C BCNO, BMP, MG #### [address] MCV (RBC) [Entitic vol] 91.0 fL Normal 83.5-101 [facility] Comment on above: Performed By: #### C BCNO, BMP, MG #### [address] Mean Corpuscular HGB Conc 33.9 g/dL Normal 32.5-35.6 [facility] Comment on above: Performed By: #### C BCNO, BMP, MG #### [address] Platelet mean volume (Bld) [Entitic vol] 8.9 fL Normal 6.6-10.1 [facility] Comment on above: Result Comment: PERF ORMED BY: [place] [address] PATHOLOGIST PRESCHOOL DIRECTOR JOSUE DAMON M.D. Performed By: #### C BCNO, BMP, MG #### [address] Platelets (Bld) [#/Vol] 221 10*3/uL Normal 150-450 [facility] Comment on above: Performed By: #### C BCNO, BMP, MG #### [address] RBC (Bld) [#/Vol] 3.98 10*6/uL Normal 3.90-5.60 [facility] Comment on above: Performed By: #### C BCNO, BMP, MG #### [address] [place] [address] [place] WBC (Bld) [#/Vol] 8.7 10*3/uL Normal 4.1-10.5 [facility] Comment on above: Performed By: #### C BCNO, BMP, MG #### [facility] [address] Leukocytes [#/volume] correc marimar for nucleated erythrocytes in Blood by Automated counOrdered By: Dread Toney on 05-28-2024 WBC corrected for nucl RBC Auto (Bld) [#/Vol] Leukocytes [#/volume] corrected for nucleated erythrocytes in Blood by Automated coun 4.1-10.5 [facility] MCH Auto (RBC) [Entitic mass ]Ordered By: Dread Toney on 05-28-2024 MCH (RBC) [Entitic mass] MCH [Entitic mass] by Automated count 27.5-35.2 [facility] MCHC Auto (RBC) [Mass/Vol]Or dered By: Dread Toney on 05-28-2024 MCHC (RBC) [Mass/Vol] MCHC [Mass/volume] by Automated count 32.5-35.6 [facility] MCV Auto (RBC) [Entitic vol] Ordered By: Dread Toney on 05-28-2024 MCV (RBC) [Entitic vol] MCV [Entitic vol ume] by Automated count 83.5-101 [facility] Magnesiumon 05-28-2024 Magnesium [Mass/Vol] 1.6 mg/dL Low 1.9-2.7 [facility] Comment on above: Result Comment: PERF ORMED BY: [place] [address] PATHOLOGIST PRESCHOOL DIRECTOR JOSUE DAMON M.D. Performed By: #### C BCNO, BMP, MG #### [facility] [address] [place] [address] Magnesium [Mass/volume] in S grady or PlasmaOrdered By: Dread Toney on 05-28-2024 Magnesium [Mass/Vol] Magnesium [Mass/volume] in Serum or Plasma Low 1.9-2.7 [facility] No Panel InformationOrdered By: Dread Toney on 05-28-2024 Estimated GFR (CKD-EPI) > 60.0 mL/Min [facility] Creatinine Clearance (Chem 66.83 [facility] Platelet mean volume Auto (B ld) [Entitic vol]Ordered By: Dread Toney on 05-28-2024 Platelet mean volume (Bld) [Entitic vol] Platelet mean volume [Entitic volume] in Blood by Automated count 6.6-10.1 [facility] Platelets Auto (Bld) [#/Vol] Ordered By: Dread Toney on 05-28-2024 Platelets (Bld) [#/Vol] Platelets [#/vol ume] in Blood by Automated count 150-450 [facility] Potassium [Moles/volume] in Serum or PlasmaOrdered By: Dread Toney on 05-28-2024 Potassium [Moles/Vol] Potassium [Moles/volume] in Serum or Plasma 3.5-5.1 [facility] RBC Auto (Bld) [#/Vol]Ordere d By: Dread Toney on 05-28-2024 RBC (Bld) [#/Vol] Erythrocytes [#/volume] in Blood by Automated count 3.90-5.60 [facility] Serum or plasma anion gap de terminationOrdered By: Dread Toney on 05-28-2024 Anion gap [Moles/Vol] Serum or plasma an ion gap determination 6.0-15.0 [facility] Sodium [Moles/volume] in Ser um or PlasmaOrdered By: Dread Toney on 05-28-2024 Sodium [Moles/Vol] Sodium [Moles/volume ] in Serum or Plasma 136-145 [facility] Urea nitrogen [Mass/volume] in Serum or PlasmaOrdered By: Dread Toney on 05-28-2024 Urea nitrogen [Mass/Vol] Urea nitrogen [Mass/volume] in Serum or Plasma 7-25 [facility] Glucose Poct Glucometerson 0 05-27-2024 Commemt1 Glu2: Cleaned Meter Normal [facility] Comment on above: Result Comment: PERF ORMED BY: [facility] [address] [place] [address] PATHOLOGIST PRESCHOOL DIRECTOR JOSUE DAMON M.D. Performed By: #### G LULS #### Point of Care testing , Glucose [Mass/Vol] 128 mg/dL Normal [facility] Comment on above: Result Comment: [place] om Glucose Reference Range is dependent on time and content of last meal. Glucose of more than 200 mg/dL in a nonstressed, ambulatory subject supports the diagnosis of Diabetes Mellitus. Performed By: #### G LULS #### Point of Care testing , Commemt1 Glu2: Cleaned Meter Normal [facility] Comment on above: Result Comment: PERF ORMED BY: [address] [place] [address] PATHOLOGIST PRESCHOOL DIRECTOR JOSUE DAMON M.D. Performed By: #### G LULS #### Point of Care testing , Glucose [Mass/Vol] 114 mg/dL Normal [facility] Comment on above: Result Comment: [place] om Glucose Reference Range is dependent on time and content of last meal. Glucose of more than 200 mg/dL in a nonstressed, ambulatory subject supports the diagnosis of Diabetes Mellitus. Performed By: #### G LULS #### Point of Care testing , Glucose [Mass/Vol] 126 mg/dL Normal [facility] Comment on above: Result Comment: [place] om Glucose Reference Range is dependent on time and content of last meal. Glucose of more than 200 mg/dL in a nonstressed, ambulatory subject supports the diagnosis of Diabetes Mellitus. PERFORMED BY: [address] [place] [address] PATHOLOGIST PRESCHOOL DIRECTOR JOSUE DAMON M.D. Performed By: #### G LULS #### Point of Care testing , Glucose [Mass/Vol] 135 mg/dL Normal [facility] Comment on above: Result Comment: [place] om Glucose Reference Range is dependent on time and content of last meal. Glucose of more than 200 mg/dL in a nonstressed, ambulatory subject supports the diagnosis of Diabetes Mellitus. PERFORMED BY: [place] [id number] PATHOLOGIST PRESCHOOL DIRECTOR JOSUE DAMON M.D. Performed By: #### G LULS #### Point of Care testing , No Panel InformationOrdered By: Dread Toney on 05-27-2024 Bedside Glucose Comment Glu2: cleaned meter [facility] Glucose Poct Glucometerson 0 05-26-2024 Glucose [Mass/Vol] 150 mg/dL Normal [facility] Comment on above: Result Comment: [facility] Glucose Reference Range is dependent on time and content of last meal. Glucose of more than 200 mg/dL in a nonstressed, ambulatory subject supports the diagnosis of Diabetes Mellitus. PERFORMED BY: [address] [place] [address] PATHOLOGIST PRESCHOOL DIRECTOR JOSUE DAMON M.D. Performed By: #### G LULS #### Point of Care testing , Glucose [Mass/Vol] 140 mg/dL Normal [facility] Comment on above: Result Comment: [facility] Glucose Reference Range is dependent on time and content of last meal. Glucose of more than 200 mg/dL in a nonstressed, ambulatory subject supports the diagnosis of Diabetes Mellitus. PERFORMED BY: [address] [place] [address] PATHOLOGIST PRESCHOOL DIRECTOR JOSUE DAMON M.D. Performed By: #### G LULS #### Point of Care testing , Glucose [Mass/Vol] 102 mg/dL Normal [facility] Comment on above: Result Comment: [facility] Glucose Reference Range is dependent on time and content of last meal. Glucose of more than 200 mg/dL in a nonstressed, ambulatory subject supports the diagnosis of Diabetes Mellitus. PERFORMED BY: [address] [place] [address] PATHOLOGIST PRESCHOOL DIRECTOR JOSUE DAMON M.D. Performed By: #### G LULS #### Point of Care testing , Glucose [Mass/Vol] 120 mg/dL Normal [facility] Comment on above: Result Comment: [facility] Glucose Reference Range is dependent on time and content of last meal. Glucose of more than 200 mg/dL in a nonstressed, ambulatory subject supports the diagnosis of Diabetes Mellitus. PERFORMED BY: [place] [address] PATHOLOGIST PRESCHOOL DIRECTOR JOSUE DAMON M.D. Performed By: #### C BCNO, BMP, MG #### [address] MR head/brain wo conon 05-26 MR head/brain wo con [facility] Main [place] [address] [place] [address] MRI Report Signed Patient: Des Jacob MR#: [id number] : 1940 Acct:[id number] Age/Sex: 83 / M ADM Date: 05/23/24 Loc: Room: [address] [place] [address] Type: ADM INOo Attending Dr: Dread Toney [...] Phani Owens M.D.05/26/2024 10:23 AM Dictation Location: [place] [address] Transcribed By: [facility] 05/26/24 1023 Dictated By: Phani Owens DO 05/26/24 1005 Signed By: 05/26/24 1023 Normal [facility] Magnetic resonance imaging r eportOrdered By: Phani Owens on 05-26-2024 Study report [facility] Main [place] [id number] MRI Report Signed Patient: Des Jacob MR#: [id number] : 1940 Acct:[id number] Age/Sex: 83 / M ADM Date: 5 Loc: 3T Room: [address] [place] [address] Type: ADM INOo Attending Dr: Dread Toney [...] Phani Owens M.D.05/26/2024 10:23 AM Dictation Location: [place] [address] Transcribed By: [facility] 05/26/24 1023 Dictated By: Phani Owens DO 05/26/24 1005 Signed By: 05/26/24 1023 [facility] Glucose Poct Glucometerson 0 05-25-2024 Glucose [Mass/Vol] 160 mg/dL Normal [facility] Comment on above: Result Comment: [facility] Glucose Reference Range is dependent on time and content of last meal. Glucose of more than 200 mg/dL in a nonstressed, ambulatory subject supports the diagnosis of Diabetes Mellitus. PERFORMED BY: [place] [id number] PATHOLOGIST PRESCHOOL DIRECTOR JOSUE DAMON M.D. Performed By: #### G LULS #### Point of Care testing , Glucose [Mass/Vol] 190 mg/dL Normal [facility] Comment on above: Result Comment: [place] Glucose Reference Range is dependent on time and content of last meal. Glucose of more than 200 mg/dL in a nonstressed, ambulatory subject supports the diagnosis of Diabetes Mellitus. PERFORMED BY: [place] [address] PATHOLOGIST PRESCHOOL DIRECTOR JOSUE DAMON M.D. Performed By: #### G LULS #### Point of Care testing , Glucose [Mass/Vol] 98 mg/dL Normal [facility] Comment on above: Result Comment: [place] Glucose Reference Range is dependent on time and content of last meal. Glucose of more than 200 mg/dL in a nonstressed, ambulatory subject supports the diagnosis of Diabetes Mellitus. PERFORMED BY: [place] [id number] PATHOLOGIST PRESCHOOL DIRECTOR JOSUE DAMON M.D. Performed By: #### G LULS #### Point of Care testing , Commemt1 Glu2: Cleaned Meter Normal [facility] Comment on above: Result Comment: PERF ORMED BY: [place] [id number] PATHOLOGIST PRESCHOOL DIRECTOR JOSUE DAMON M.D. Performed By: #### G LULS #### Point of Care testing , Glucose [Mass/Vol] 126 mg/dL Normal [facility] Comment on above: Result Comment: [place] Glucose Reference Range is dependent on time and content of last meal. Glucose of more than 200 mg/dL in a nonstressed, ambulatory subject supports the diagnosis of Diabetes Mellitus. Performed By: #### G LULS #### Point of Care testing , A1C with Estimated Average [facility] 05-24-2024 Glucose [Mass/Vol] 137 mg/dL Normal [facility] Comment on above: Result Comment: PERF ORMED BY: [facility] [address] [place] [address] PATHOLOGIST PRESCHOOL DIRECTOR JOSUE DAMON M.D. Performed By: #### G LULS #### Point of Care testing , HbA1c (Bld) [Mass fraction] 6.4 % High 4.3-5.6 [facility] Comment on above: Result Comment: Incr eased risk for diabetes: 5.7 - 6.4 diabetes: >6.4 glycemic control for adults with diabetes: <7.0 Performed By: #### G LULS #### Point of Care testing , Ammoniaon 05-24-2024 Ammonia (P) [Moles/Vol] 18 umol/L Normal 35 T [facility] Comment on above: Result Comment: PERF ORMED BY: [facility] [address] [place] [address] PATHOLOGIST PRESCHOOL DIRECTOR JOSUE DAMON M.D. Performed By: #### G LULS #### Point of Care testing , Ammonia [Moles/volume] in Pl asmaOrdered By: Prashant Garcia on 05-24-2024 Ammonia (P) [Moles/Vol] Ammonia [Moles/volume] in Plasma [facility] Basic Metabolic Panelon 05-12 Anion gap [Moles/Vol] 12.7 mmol/L Normal 6.0-15.0 [facility] Comment on above: Performed By: #### G LULS #### Point of Care testing , Calcium [Mass/Vol] 8.7 mg/dL Normal 8.6-10.3 [facility] Comment on above: Performed By: #### G LULS #### Point of Care testing , Chloride [Moles/Vol] 106 mmol/L Normal 98-107 [facility] Comment on above: Performed By: #### G LULS #### Point of Care testing , CO2 [Moles/Vol] 25.1 mmol/L Normal 21.0-31.0 [facility] Comment on above: Performed By: #### G LULS #### Point of Care testing , Creatinine [Mass/Vol] 0.92 mg/dL Normal 0.70-1.30 [facility] Comment on above: Performed By: #### G LULS #### Point of Care testing , Creatinine Clr Calc Pharmacy 64.34 Normal [facility] Comment on above: Performed By: #### G LULS #### Point of Care testing , GFR/1.73 sq M.predicted MDRD (S/P/Bld) [Vol rate/Area] mL/min/{1.73_m2} Normal [facility] Comment on above: Performed By: #### G LULS #### Point of Care testing , Glucose [Mass/Vol] 138 mg/dL High 70-100 [facility] Comment on above: Result Comment: [place] Glucose Reference Range is dependent on time and content of last meal. Glucose of more than 200 mg/dL in a nonstressed, ambulatory subject supports the diagnosis of Diabetes Mellitus. ADA recommended reference range Performed By: #### G LULS #### Point of Care testing , Potassium [Moles/Vol] 3.8 mmol/L Normal 3.5-5.1 [facility] Comment on above: Performed By: #### G LULS #### Point of Care testing , Sodium [Moles/Vol] 140 mmol/L Normal 136-145 [facility] Comment on above: Performed By: #### G LULS #### Point of Care testing , Urea nitrogen [Mass/Vol] 18 mg/dL Normal 7-25 [facility] Comment on above: Performed By: #### G LULS #### Point of Care testing , Basophils Auto (Bld) [#/Vol] Ordered By: Dread Toney on 05-24-2024 Basophils (Bld) [#/Vol] Automated basoph il count 0.0-0.2 [facility] Basophils/100 WBC Auto (Bld) Ordered By: Dread Toney on 05-24-2024 Basophils/100 WBC (Bld) Automated basophil % . [facility] Blood estimated average gluc ose determination by estimation from glycated hemoglobinOrdered By: Dread Toney on 05-24-2024 Average glucose Estimated from glycated hemoglobin (Bld) [Mass/Vol] Glucose mean value [Mass/volume] in Blood Estimated from glycated hemoglobin [facility] Cholesterol [Mass/volume] in Serum or PlasmaOrdered By: Dread Toney on 05-24-2024 Cholesterol [Mass/Vol] Cholesterol [Mass/volume] in Serum or Plasma Low 140-200 [facility] Comment on above: Chol less than 200 m g/dl low riskChol 201-239 mg/dl borderline riskChol 240 mg/dl and greater high risk Cholesterol in HDL [Mass/vol ume] in Serum or PlasmaOrdered By: Dread Toney on 05-24-2024 Cholesterol in HDL [Mass/Vol] Serum or plasma high density lipoprotein (HDL) cholesterol measurement [facility] Comment on above: HDL CHOL ATP-III CLA SSIFICATION Cardiovascular RiskHDL > or equal to 60 mg/dL LOWHDL < 40 mg/dL HIGH Cholesterol in LDL Calc [Mas s/Vol]Ordered By: Dread Toney on 05-24-2024 Cholesterol in LDL [Mass/Vol] Cholesterol in LDL [Mass/volume] in Serum or Plasma by calculation 0-100 [facility] Comment on above: LDL ATP III CLASSIFI CATIONLDL less than 100 mg/dL OptimalLDL 100-129 mg/dL Near or above optimalLDL 130-159 mg/dL Borderline highLDL 160-189 mg/dL HighLDL greater than 189 mg/dL Very high Cholesterol in VLDL Calc [Ma ss/Vol]Ordered By: Dread Toney on 05-24-2024 Cholesterol in VLDL [Mass/Vol] Cholesterol in VLDL [Mass/volume] in Serum or Plasma by calculation [facility] Complete Blood Count Auto Di ffon 05-24-2024 Basophils (Bld) [#/Vol] 0.0 10*3/uL Normal 0.0-0.2 [facility] Comment on above: Result Comment: PERF ORMED BY: [facility] [address] [place] [address] PATHOLOGIST PRESCHOOL DIRECTOR JOSUE DAMON M.D. Performed By: #### G LULS #### Point of Care testing , Basophils/100 WBC (Bld) 0.4 % Normal . [facility] Comment on above: Performed By: #### G LULS #### Point of Care testing , Eosinophils (Bld) [#/Vol] 0.1 10*3/uL Normal 0.0-0.45 [facility] Comment on above: Performed By: #### G LULS #### Point of Care testing , Eosinophils/100 WBC (Bld) 1.0 % Normal . [facility] Comment on above: Performed By: #### G LULS #### Point of Care testing , Erythrocyte distribution width (RBC) [Ratio] 14.3 % Normal 12.0-14.8 [facility] Comment on above: Performed By: #### G LULS #### Point of Care testing , Hematocrit (Bld) [Volume fraction] 38.6 % Low 38.8-50.0 [facility] Comment on above: Performed By: #### G LULS #### Point of Care testing , Hemoglobin (Bld) [Mass/Vol] 13.2 g/dL Normal 13.0-17.0 [facility] Comment on above: Performed By: #### G LULS #### Point of Care testing , Lymphocytes (Bld) [#/Vol] 1.4 10*3/uL Normal 1.00-4.8 [facility] Comment on above: Performed By: #### G LULS #### Point of Care testing , Lymphocytes/100 WBC (Bld) 19.2 % Normal . [facility] Comment on above: Performed By: #### G LULS #### Point of Care testing , MCH (RBC) [Entitic mass] 31.1 pg Normal 27.5-35.2 [facility] Comment on above: Performed By: #### G LULS #### Point of Care testing , MCV (RBC) [Entitic vol] 90.9 fL Normal 83.5-101 [facility] Comment on above: Performed By: #### G LULS #### Point of Care testing , Mean Corpuscular HGB Conc 34.2 g/dL Normal 32.5-35.6 [facility] Comment on above: Performed By: #### G LULS #### Point of Care testing , Monocytes (Bld) [#/Vol] 0.7 10*3/uL Normal 0.0-0.8 [facility] Comment on above: Performed By: #### G LULS #### Point of Care testing , Monocytes/100 WBC (Bld) 9.0 % Normal . [facility] Comment on above: Performed By: #### G LULS #### Point of Care testing , Neutrophils (Bld) [#/Vol] 5.3 10*3/uL Normal 1.8-7.7 [facility] Comment on above: Performed By: #### G LULS #### Point of Care testing , Neutrophils/100 WBC (Bld) 70.4 % Normal . [facility] Comment on above: Performed By: #### G LULS #### Point of Care testing , NRBC% 0.1 /100{WBC} Normal 0-0.5 [facility] Comment on above: Performed By: #### G LULS #### Point of Care testing , Platelet mean volume (Bld) [Entitic vol] 9.0 fL Normal 6.6-10.1 [facility] Comment on above: Performed By: #### G LULS #### Point of Care testing , Platelets (Bld) [#/Vol] 194 10*3/uL Normal 150-450 [facility] Comment on above: Performed By: #### G LULS #### Point of Care testing , RBC (Bld) [#/Vol] 4.24 10*6/uL Normal 3.90-5.60 [facility] Comment on above: Performed By: #### G LULS #### Point of Care testing , WBC (Bld) [#/Vol] 7.6 10*3/uL Normal 4.1-10.5 [facility] Comment on above: Performed By: #### G LULS #### Point of Care testing , Eosinophils Auto (Bld) [#/Vo l]Ordered By: Dread Toney on 05-24-2024 Eosinophils (Bld) [#/Vol] Automated eosinophil count 0.0-0.45 [facility] Eosinophils/100 WBC Auto (Bl d)Ordered By: Dread Toney on 05-24-2024 Eosinophils/100 WBC (Bld) Automated eosinophil % . [facility] Glucose Poct Glucometerson 0 05-24-2024 Commemt1 Glu2: Cleaned Meter Normal [facility] Comment on above: Result Comment: PERF ORMED BY: [facility] [place] [place] [address] PATHOLOGIST PRESCHOOL DIRECTOR JOSUE DAMON M.D. Performed By: #### G LULS #### Point of Care testing , Glucose [Mass/Vol] 184 mg/dL Normal [facility] Comment on above: Result Comment: [place] Glucose Reference Range is dependent on time and content of last meal. Glucose of more than 200 mg/dL in a nonstressed, ambulatory subject supports the diagnosis of Diabetes Mellitus. Performed By: #### G LULS #### Point of Care testing , Hemoglobin A1c/Hemoglobin.to david in BloodOrdered By: Dread Toney on 05-24-2024 HbA1c (Bld) [Mass fraction] Hemoglobin A1c percentage High 4.3-5.6 [facility] Comment on above: Increased risk for d iabetes: 5.7 - 6.4diabetes: >6.4glycemic control for adults with diabetes: <7.0 Immunofixation,Serumon 05-24 Immunofixation, Serum Comment Critically abnormal . 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 PLEASE NOTE: Samples from patients receiving DARZALEX(R) (daratumumab) or SARCLISA(R)(isatuximab-irfc) treatment can appear as an IgG kappa and mask a complete response (CR). If this patient is receiving these therapies, this MICH assay interference can be removed by ordering test number 737251- Immunofixation, Daratumumab-Specific, Serum or [id number]- Immunofixation, Isatuximab-Specific, Serum and submitting a new sample for testing or by calling the lab to add this test to the current sample. Immunofixation shows IgM monoclonal protein with lambda light chain specificity. Performed By: #### G LULS #### Point of Care testing , Immunoglobulin A, Serum 326 mg/dL Normal 61-437 [facility] Comment on above: Performed By: #### G LULS #### Point of Care testing , Immunoglobulin G 773 mg/dL Normal 603-1613 [facility] Comment on above: Performed By: #### G LULS #### Point of Care testing , Immunoglobulin M, Serum 83 mg/dL Normal 15-143 [facility] Comment on above: Result Comment: Perf ormed at: - [facility] [place] [id number] Director Of Marketing And Promotions: Alex Tyler PhD, Phone: [phone] Performed By: #### G LULS #### Point of Care testing , Lipid Panelon 05-24-2024 Cholesterol [Mass/Vol] 111 mg/dL Low 140-200 [facility] Comment on above: Result Comment: Chol less than 200 mg/dl low risk Chol 201-239 mg/dl borderline risk Chol 240 mg/dl and greater high risk Performed By: #### G LULS #### Point of Care testing , Cholesterol in HDL [Mass/Vol] 37 mg/dL Normal 23-92 [facility] Comment on above: Result Comment: HDL CHOL ATP-III CLASSIFICATION Cardiovascular Risk HDL > or equal to 60 mg/dL LOW HDL < 40 mg/dL HIGH Performed By: #### G LULS #### Point of Care testing , Cholesterol.total/Janeen sterol in HDL [Mass ratio] 3.0 {ratio} Normal <5.0 [facility] Comment on above: Performed By: #### G LULS #### Point of Care testing , LDL Cholesterol,Calculated 59 mg/dL Normal 0-100 [facility] Comment on above: Result Comment: LDL ATP III CLASSIFICATION LDL less than 100 mg/dL Optimal LDL 100-129 mg/dL Near or above optimal LDL 130-159 mg/dL Borderline high LDL 160-189 mg/dL High LDL greater than 189 mg/dL Very high Performed By: #### G LULS #### Point of Care testing , Triglyceride w/Reflex 73 mg/dL Normal 0-149 [facility] Comment on above: [...] , VLDL CHOLESTEROL 14 mg/dL Normal [facility] Comment on above: Performed By: #### G LULS #### Point of Care testing , Lymphocytes Auto (Bld) [#/Vo l]Ordered By: Dread Toney on 05-24-2024 Lymphocytes (Bld) [#/Vol] Lymphocytes [#/volume] in Blood by Automated count 1.00-4.8 [facility] Lymphocytes/100 WBC Auto (Bl d)Ordered By: Dread Toney on 05-24-2024 Lymphocytes/100 WBC (Bld) Lymphocytes/100 leukocytes in Blood by Automated count . [facility] Magnesiumon 05-24-2024 Magnesium [Mass/Vol] 1.8 mg/dL Low 1.9-2.7 [facility] Comment on above: Performed By: #### G LULS #### Point of Care testing , Monocytes Auto (Bld) [#/Vol] Ordered By: Dread Toney on 05-24-2024 Monocytes (Bld) [#/Vol] Automated blood monocyte count 0.0-0.8 [facility] Monocytes/100 WBC Auto (Bld) Ordered By: Dread Toney on 05-24-2024 Monocytes/100 WBC (Bld) Automated monocyte % . [facility] Neutrophils Auto (Bld) [#/Vo l]Ordered By: Dread Toney on 05-24-2024 Neutrophils (Bld) [#/Vol] Neutrophils [#/volume] in Blood by Automated count 1.8-7.7 [facility] Neutrophils/100 WBC Auto (Bl d)Ordered By: Dread Toney on 05-24-2024 Neutrophils/100 WBC (Bld) Automated neutrophil % . [facility] No Panel InformationOrdered By: Prashant Garcia on 05-24-2024 Protein Electrophoresis M-Alejandro Comment: g/dL Not Observed [facility] Comment on above: SPE shows asymmetric al gamma. Suggest serum MICH and free lightchain analysis for further evaluation. Protein Electrophoresis Note Comment . [facility] Comment on above: Protein electrophore sis scan will follow via computer,mail, or industrial boilermaker delivery.Performed at: [address] [id number] Director: Alex Tyler PhD, Phone: [phone] Nucleated erythrocytes [Pres ence] in Blood by Automated countOrdered By: Dread Toney on 05-24-2024 Nucleated RBC Auto Ql (Bld) Nucleated erythrocytes [Presence] in Blood by Automated count 0-0.5 [facility] Phosphate [Mass/volume] in S grady or PlasmaOrdered By: Dread Toney on 05-24-2024 Phosphate [Mass/Vol] Phosphate [Mass/volume] in Serum or Plasma 2.5-4.5 [facility] Phosphoruson 05-24-2024 Phosphate [Mass/Vol] 3.3 mg/dL Normal 2.5-4.5 [facility] Comment on above: Performed By: #### G LULS #### Point of Care testing , Protein Electrophoresis, Ser umon 05-24-2024 Albumin [Mass/Vol] 3.5 g/dL Normal 2.9-4.4 [facility] Comment on above: Performed By: #### G LULS #### Point of Care testing , Albumin/Globulin [Mass ratio] 1.3 {ratio} Normal 0.7-1.7 [facility] Comment on above: Performed By: #### G LULS #### Point of Care testing , Pxnmi-2-Vyffdxxk 0.2 g/dL Normal 0.0-0.4 [facility] Comment on above: Performed By: #### G LULS #### Point of Care testing , Vgcmj-8-Tcknmesg 0.9 g/dL Normal 0.4-1.0 [facility] Comment on above: Performed By: #### G LULS #### Point of Care testing , Beta Globulin 1.0 g/dL Normal 0.7-1.3 [facility] Comment on above: Performed By: #### G LULS #### Point of Care testing , Gamma Globulin 0.7 g/dL Normal 0.4-1.8 [facility] Comment on above: Performed By: #### G LULS #### Point of Care testing , Globulin (S) [Mass/Vol] 2.8 g/dL Normal 2.2-3.9 [facility] Comment on above: Performed By: #### G LULS #### Point of Care testing , M-Alejandro Comment: Normal Not Observed [facility] Comment on above: Result Comment: SPE shows asymmetrical gamma. Suggest serum MICH and free light chain analysis for further evaluation. Performed By: #### G LULS #### Point of Care testing , Protein [Mass/Vol] 6.3 g/dL Normal 6.0-8.5 [facility] Comment on above: Performed By: #### G LULS #### Point of Care testing , SPE-Note Comment Normal . [facility] Comment on above: Result Comment: Prot ein electrophoresis scan will follow via computer, mail, or industrial boilermaker delivery. Performed at: [employer] [id number] Director Of Marketing And Promotions: Alex Tyler PhD, Phone: [phone] Performed By: #### G LULS #### Point of Care testing , RPR w/rfx to Quant TP Abson 05-24-2024 RPR, Rfx Quant RPR Non-Reactive Normal Non Reactive [facility] Comment on above: Result Comment: Perf ormed at: [employer] [id number] Director Of Marketing And Promotions: Alex Tyler PhD, Phone: [phone] PERFORMED BY: [facility] [place] [address] PATHOLOGIST PRESCHOOL DIRECTOR JOSUE DAMON M.D. Performed By: #### G LULS #### Point of Care testing , Serum RPR testOrdered By: Gopal Garcia on 05-24-2024 Reagin Ab RPR Ql (S) Reagin Ab [Presence ] in Serum by RPR Non Reactive [facility] Comment on above: Performed at: [address] [id number] Director: Alex Tyler PhD, Phone: [phone] Serum globulin measurement ( mass/volume)Ordered By: Prashant Garcia on 05-24-2024 Globulin (S) [Mass/Vol] Serum globulin measurement (mass/volume) 2.2-3.9 [facility] Serum or plasma albumin blanca urement (mass/volume)Ordered By: Prashant Garcia on 05-24-2024 Albumin [Mass/Vol] Albumin [Mass/volume ] in Serum or Plasma 2.9-4.4 [facility] Serum or plasma albumin/glob ulin mass ratioOrdered By: Prashant Garcia on 05-24-2024 Albumin/Globulin [Mass ratio] Serum or plasma albumin/globulin mass ratio 0.7-1.7 [facility] Serum or plasma alpha 1 glob ulin measurement by electrophoresis (mass/volume)Ordered By: Prashant Garcia 05-24-2024 Alpha 1 globulin Elph [Mass/Vol] Serum or plasma alpha 1 globulin measurement by electrophoresis (mass/volume) 0.0-0.4 [facility] Serum or plasma alpha 2 glob ulin measurement by electrophoresis (mass/volume)Ordered By: Prashant Garcia 05-24-2024 Alpha 2 globulin Elph [Mass/Vol] Serum or plasma alpha 2 globulin measurement by electrophoresis (mass/volume) 0.4-1.0 [facility] Serum or plasma beta globuli n measurement by electrophoresis (mass/volume)Ordered By: Prashant Garcia 05-24-2024 Beta globulin Elph [Mass/Vol] Serum or plasma beta globulin measurement by electrophoresis (mass/volume) 0.7-1.3 [facility] Serum or plasma gamma globul in measurement by electrophoresis (mass/volume)Ordered By: Prashant Garcia on 05-24-2024 Gamma globulin Elph [Mass/Vol] Serum or plasma gamma globulin measurement by electrophoresis (mass/volume) 0.4-1.8 [facility] Serum or plasma total choles terol/high density lipoprotein (HDL) cholesterol mass ratOrdered By: Dread Toney on 05-24-2024 Cholesterol.total/Janeen sterol in HDL [Mass ratio] Serum or plasma total cholesterol/high density lipoprotein (HDL) cholesterol mass rat <5.0 [facility] Serum total protein measurem entOrdered By: Prashant Garcia on 05-24-2024 Protein [Mass/Vol] Protein [Mass/volume ] in Serum or Plasma 6.0-8.5 [facility] Thyroid Stimulating Hormoneo n 05-24-2024 TSH Qn 2.29 m[IU]/L Normal 0.45-5.33 [facility] [facility] Comment on above: Result Comment: PERF ORMED BY: [facility] [address] [place] [address] PATHOLOGIST PRESCHOOL DIRECTOR JOSUE DAMON M.D. Performed By: #### G LULS #### Point of Care testing , Thyrotropin [Units/volume] i n Serum or PlasmaOrdered By: Prashant Garcia on 05-24-2024 TSH Qn Thyrotropin [Units/volume] in Serum or Plasma 0.45-5.33 [facility] Triglyceride [Mass/volume] i n Serum or PlasmaOrdered By: Dread Toney on 05-24-2024 Triglyceride [Mass/Vol] Triglyceride [Mass/volume] in Serum or Plasma 0-149 [facility] Comment on above: TRIG ATP III CLASSIF ICATIONTRIG less than 150 mg/dL NormalTRIG 150-199 mg/dL Borderline highTRIG 200-500 mg/dL High TRIG greater than 500 mg/dL Very highStandard traceable to the Center for Disease Conrtrol and Prevention (CDC) test method. Vitamin B12on 05-24-2024 Cobalamin (Vitamin B12) [Mass/Vol] 298 pg/mL Normal 180-914 [facility] Comment on above: Performed By: #### G LULS #### Point of Care testing , Vitamin B12 ser/plasOrdered By: Prashant Garcia on 05-24-2024 Cobalamin (Vitamin B12) [Mass/Vol] Vitamin B12 ser/plas 180-914 [facility] WBC Auto (Bld) [#/Vol]Ordere d By: Dread Toney on 05-24-2024 WBC (Bld) [#/Vol] Leukocytes [#/volume ] in Blood by Automated count 4.1-10.5 [facility] Alanine aminotransferase [En zymatic activity/volume] in Serum or PlasmaOrdered By: Fredo Hoffmann on 05-23-2024 ALT [Catalytic activity/Vol] Alanine aminotransferase [Enzymatic activity/volume] in Serum or Plasma 7-52 [facility] Albumin [Mass/volume] in Ser um or Plasma by Bromocresol green (BCG) dye binding methoOrdered By: Fredo Hoffmann on 05-23-2024 Albumin BCG dye [Mass/Vol] Albumin [Mass/volume] in Serum or Plasma by Bromocresol green (BCG) dye binding metho 3.5-5.7 [facility] Alkaline phosphatase [Enzyma tic activity/volume] in Serum or PlasmaOrdered By: Fredo Hoffmann on 05-23-2024 ALP [Catalytic activity/Vol] Alkaline phosphatase [Enzymatic activity/volume] in Serum or Plasma 34-104 [facility] Appearance of UrineOrdered B y: Elenita Munoz on 05-23-2024 Appearance (U) Urine appearance Clear [facility] Aspartate aminotransferase [ Enzymatic activity/volume] in Serum or PlasmaOrdered By: Fredo Hoffmann on 05-23-2024 AST [Catalytic activity/Vol] Aspartate aminotransferase [Enzymatic activity/volume] in Serum or Plasma 13-39 [facility] Bacteria [Presence] in Urine by AutomatedOrdered By: Elenita Munoz on 05-23-2024 Bacteria Auto Ql (U) Bacteria [Presence] in Urine by Automated None Seen [facility] Basophils Auto (Bld) [#/Vol] Ordered By: Fredo Hoffmann on 05-23-2024 Basophils (Bld) [#/Vol] Automated basoph il count 0.0-0.2 [facility] Basophils/100 WBC Auto (Bld) Ordered By: Fredo Hoffmann on 05-23-2024 Basophils/100 WBC (Bld) Automated basophil % . [facility] Bilirubin Test strip Ql (U)O rdered By: Elenita Munoz on 05-23-2024 Bilirubin Ql (U) Bilirubin.total [Presence] in Urine by Test strip Negative [facility] Bilirubin.total [Mass/volume ] in Serum or PlasmaOrdered By: Fredo Hoffmann on 05-23-2024 Bilirubin [Mass/Vol] Bilirubin.total [Mass/volume] in Serum or Plasma High 0.3-1.[address] [facility] [address] head/brain wo conon 05-23 CT head/brain wo con [facility] [place] [address] [place] [address] CT Scan Report Signed Patient: Des Jacob MR#: [id number] : 1940 Acct:[id number] Age/Sex: 83 / M ADM Date: 05/23/24 Loc: ER Room: Type: [facility] ER Attending Dr: Copies to: Elenita Munoz [...] or CT evidence of large vascular stroke. [id number] central involutional changes and chronic small vessel ischemic disease. Intracranial vascular calcifications. Visualized intraorbital contents appear unremarkable. Visualized paranasal sinuses are clear. Right frontal scalp soft tissue swelling. No calvarial fracture. CT/CT head/brain wo con IMPRESSION: NO ACUTE INTRACRANIAL ABNORMALITY. MILD/MODERATE CHRONIC MICROVASCULAR CHANGES AND CENTRAL INVOLUTIONAL CHANGE. Impression dictated by: Romero Guerin M.D.05/23/2024 8:58 AM Dictation Location: [place] [address] Transcribed By: [facility] 05/23/24 0858 Dictated By: Romero Guerin MD 05/23/24 0855 Signed By: 05/23/2458 Normal [facility] Calcium [Mass/volume] in Ser um or PlasmaOrdered By: Fredo Hoffmann on 05-23-2024 Calcium [Mass/Vol] Calcium [Mass/volume ] in Serum or Plasma 8.6-10.3 [facility] Carbon dioxide, total [Moles /volume] in Serum or PlasmaOrdered By: Fredo Hoffmann on 05-23-2024 CO2 [Moles/Vol] Carbon dioxide, tota l [Moles/volume] in Serum or Plasma 21.0-31.0 [facility] Chloride [Moles/volume] in S grady or PlasmaOrdered By: Fredo Hoffmann on 05-23-2024 Chloride [Moles/Vol] Chloride [Moles/volume] in Serum or Plasma 98-107 [facility] Color Auto (U)Ordered By: Jc Munoz on 05-23-2024 Color (U) Color of Urine by Auto Yellow [facility] Complete Blood Count Auto Di ffon 05-23-2024 Basophils (Bld) [#/Vol] 0.0 10*3/uL Normal 0.0-0.2 [facility] Comment on above: Result Comment: PERF ORMED BY: [facility] [address] [address] PATHOLOGIST [employer]CHOOL DIRECTOR JOSUE DAMON M.D. Performed By: #### G LULS #### Point of Care testing , Basophils/100 WBC (Bld) 0.4 % Normal . [facility] Comment on above: Performed By: #### G LULS #### Point of Care testing , Eosinophils (Bld) [#/Vol] 0.2 10*3/uL Normal 0.0-0.45 [facility] Comment on above: Performed By: #### G LULS #### Point of Care testing , Eosinophils/100 WBC (Bld) 2.4 % Normal . [facility] Comment on above: Performed By: #### G LULS #### Point of Care testing , Erythrocyte distribution width (RBC) [Ratio] 14.2 % Normal 12.0-14.8 [facility] Comment on above: Performed By: #### G LULS #### Point of Care testing , Hematocrit (Bld) [Volume fraction] 38.0 % Low 38.8-50.0 [facility] Comment on above: Performed By: #### G LULS #### Point of Care testing , Hemoglobin (Bld) [Mass/Vol] 12.8 g/dL Low 13.0-17.0 [facility] Comment on above: Performed By: #### G LULS #### Point of Care testing , Lymphocytes (Bld) [#/Vol] 1.3 10*3/uL Normal 1.00-4.8 [facility] Comment on above: Performed By: #### G LULS #### Point of Care testing , Lymphocytes/100 WBC (Bld) 16.5 % Normal . [facility] Comment on above: Performed By: #### G LULS #### Point of Care testing , MCH (RBC) [Entitic mass] 31.1 pg Normal 27.5-35.2 [facility] Comment on above: Performed By: #### G LULS #### Point of Care testing , MCV (RBC) [Entitic vol] 92.2 fL Normal 83.5-101 [facility] Comment on above: Performed By: #### G LULS #### Point of Care testing , Mean Corpuscular HGB Conc 33.7 g/dL Normal 32.5-35.6 [facility] Comment on above: Performed By: #### G LULS #### Point of Care testing , Monocytes (Bld) [#/Vol] 0.8 10*3/uL Normal 0.0-0.8 [facility] Comment on above: Performed By: #### G LULS #### Point of Care testing , Monocytes/100 WBC (Bld) 9.4 % Normal . [facility] Comment on above: Performed By: #### G LULS #### Point of Care testing , Neutrophils (Bld) [#/Vol] 5.7 10*3/uL Normal 1.8-7.7 [facility] Comment on above: Performed By: #### G LULS #### Point of Care testing , Neutrophils/100 WBC (Bld) 71.3 % Normal . [facility] Comment on above: Performed By: #### G LULS #### Point of Care testing , NRBC% 0.0 /100{WBC} Normal 0-0.5 [facility] Comment on above: Performed By: #### G ANETTELS #### Point of Care testing , Platelet mean volume (Bld) [Entitic vol] 9.7 fL Normal 6.6-10.1 [facility] Comment on above: Performed By: #### G ANETTELS #### Point of Care testing , Platelets (Bld) [#/Vol] 172 10*3/uL Normal 150-450 [facility] Comment on above: Performed By: #### G ANETTELS #### Point of Care testing , RBC (Bld) [#/Vol] 4.12 10*6/uL Normal 3.90-5.60 [facility] Comment on above: Performed By: #### G ANETTELS #### Point of Care testing , WBC (Bld) [#/Vol] 8.0 10*3/uL Normal 4.1-10.5 [facility] Comment on above: Performed By: #### G ANETTELS #### Point of Care testing , Comprehensive Metabolic Pane stephanie 05-23-2024 Albumin [Mass/Vol] 3.8 g/dL Normal 3.5-5.7 [facility] Comment on above: Performed By: #### G ANETTELS #### Point of Care testing , Albumin/Globulin [Mass ratio] 1.4 {ratio} Normal [facility] Comment on above: Performed By: #### G ANETTELS #### Point of Care testing , ALP [Catalytic activity/Vol] 97 U/L Normal 34-104 [facility] Comment on above: Performed By: #### G ANETTELS #### Point of Care testing , ALT [Catalytic activity/Vol] 12 U/L Normal 7-52 [facility] Comment on above: Performed By: #### G ANETTELS #### Point of Care testing , Anion gap [Moles/Vol] 14.6 mmol/L Normal 6.0-15.0 [facility] Comment on above: Performed By: #### G ANETTELS #### Point of Care testing , AST [Catalytic activity/Vol] 19 U/L Normal 13-39 [facility] Comment on above: Performed By: #### G LULS #### Point of Care testing , Bilirubin [Mass/Vol] 1.2 mg/dL High 0.3-1.0 [facility] Comment on above: Performed By: #### G LULS #### Point of Care testing , Calcium [Mass/Vol] 8.9 mg/dL Normal 8.6-10.3 [facility] Comment on above: Performed By: #### G LULS #### Point of Care testing , Chloride [Moles/Vol] 106 mmol/L Normal 98-107 [facility] Comment on above: Performed By: #### G LULS #### Point of Care testing , CO2 [Moles/Vol] 22.5 mmol/L Normal 21.0-31.0 [facility] Comment on above: Performed By: #### G LULS #### Point of Care testing , Creatinine [Mass/Vol] 1.17 mg/dL Normal 0.70-1.30 [facility] Comment on above: Performed By: #### G LULS #### Point of Care testing , Creatinine Clr Calc Pharmacy 52.16 Normal [facility] Comment on above: Performed By: #### G LULS #### Point of Care testing , GFR/1.73 sq M.predicted MDRD (S/P/Bld) [Vol rate/Area] mL/min/{1.73_m2} Normal [facility] Comment on above: Performed By: #### G LULS #### Point of Care testing , Globulin (S) [Mass/Vol] 2.8 g/dL Normal T [facility] Comment on above: Performed By: #### G LULS #### Point of Care testing , Glucose [Mass/Vol] 156 mg/dL High 70-100 [facility] Comment on above: Result Comment: [place] Glucose Reference Range is dependent on time and content of last meal. Glucose of more than 200 mg/dL in a nonstressed, ambulatory subject supports the diagnosis of Diabetes Mellitus. ADA recommended reference range Performed By: #### G LULS #### Point of Care testing , Potassium [Moles/Vol] 4.1 mmol/L Normal 3.5-5.1 [facility] Comment on above: Performed By: #### G LULS #### Point of Care testing , Protein [Mass/Vol] 6.6 g/dL Normal 6.4-8.9 [facility] Comment on above: Performed By: #### G LULS #### Point of Care testing , Sodium [Moles/Vol] 139 mmol/L Normal 136-145 [facility] Comment on above: Performed By: #### G LULS #### Point of Care testing , Urea nitrogen [Mass/Vol] 30 mg/dL High 7-25 [facility] Comment on above: Performed By: #### G LULS #### Point of Care testing , Creatine Kinaseon 05-23-2024 CK [Catalytic activity/Vol] 114 U/L Normal 30-223 [facility] Comment on above: Performed By: #### G LULS #### Point of Care testing , Creatine kinase [Enzymatic a ctivity/volume] in Serum or PlasmaOrdered By: Fredo Hoffmann on 05-23-2024 CK [Catalytic activity/Vol] Creatine kinase [Enzymatic activity/volume] in Serum or Plasma 30-223 [facility] Creatinine [Mass/volume] in Serum or PlasmaOrdered By: Fredo Hoffmann on 05-23-2024 Creatinine [Mass/Vol] Creatinine [Mass/volume] in Serum or Plasma 0.70-1.30 [facility] Dipstick and Microscopicon 0 05-23-2024 Appearance (U) Clear Normal Clear [facility] Comment on above: Order Comment: Name Collection Type:: Clean-Voided Midstream Performed By: #### C BCNO, BMP, MG #### [facility] [address] [place] [address] [place] Bacteria,Urine None Seen Normal None Seen [facility] Comment on above: Order Comment: Name Collection Type:: Clean-Voided Midstream Performed By: #### C BCNO, BMP, MG #### [facility] [address] [place] [address] [place] Bilirubin,Urine Negative Normal Negative [facility] Comment on above: Order Comment: Name Collection Type:: Clean-Voided Midstream Performed By: #### C BCNO, BMP, MG #### [address] Cellular Casts,Urine 1-2 High None Seen [facility] Comment on above: Order Comment: Name Collection Type:: Clean-Voided Midstream Performed By: #### C BCNO, BMP, MG #### [address] Color (U) Yellow Normal Yellow [facility] Comment on above: Order Comment: Name Collection Type:: Clean-Voided Midstream Performed By: #### C BCNO, BMP, MG #### [address] Glucose Ql (U) 30 mg/dL High Normal [facility] Comment on above: Order Comment: Name Collection Type:: Clean-Voided Midstream Performed By: #### C BCNO, BMP, MG #### [address] Hyaline Casts,Urine 0-8 Normal 0-8 [facility] Comment on above: Order Comment: Name Collection Type:: Clean-Voided Midstream Performed By: #### C BCNO, BMP, MG #### [address] Ketones Ql (U) Trace High Negative [facility] Comment on above: Order Comment: Name Collection Type:: Clean-Voided Midstream Performed By: #### C BCNO, BMP, MG #### [address] Leukocyte esterase Test strip Ql (U) Negative Normal Negative [facility] Comment on above: Order Comment: Name Collection Type:: Clean-Voided Midstream Performed By: #### C BCNO, BMP, MG #### [address] Mucus,Urine Rare Normal [facility] Comment on above: Order Comment: Name Collection Type:: Clean-Voided Midstream Result Comment: PERF ORMED BY: [address] [place] [address] PATHOLOGIST PRESCHOOL DIRECTOR JOSUE DAMON M.D. Performed By: #### C BCNO, BMP, MG #### [address] Nitrite,Urine Negative Normal Negative [facility] Comment on above: Order Comment: Name Collection Type:: Clean-Voided Midstream Performed By: #### C BCNO, BMP, MG #### [address] Occult Blood,Urine Negative Normal Negative [facility] Comment on above: Order Comment: Name Collection Type:: Clean-Voided Midstream Result Comment: PERF ORMED BY: [place] [address] PATHOLOGIST PRESCHOOL DIRECTOR JOSUE DAMON M.D. Performed By: #### C BCNO, BMP, MG #### [address] pH (U) 5.5 [pH] Normal 5.0-9.0 [facility] Comment on above: Order Comment: Name Collection Type:: Clean-Voided Midstream Performed By: #### C BCNO, BMP, MG #### [address] Protein (U) [Mass/Vol] 70 mg/dL High Negative [facility] e [facility] Comment on above: Order Comment: Name Collection Type:: Clean-Voided Midstream Performed By: #### C BCNO, BMP, MG #### [place] [address] [place] RBC,Urine 1-2 Normal 0-4 [facility] Comment on above: Order Comment: Name Collection Type:: Clean-Voided Midstream Performed By: #### C BCNO, BMP, MG #### [address] Specificy [place],Urine 1.029 Normal 1.001-1.030 [facility] Comment on above: Order Comment: Name Collection Type:: Clean-Voided Midstream Performed By: #### C BCNO, BMP, MG #### [facility] [address] Urobilinogen,Urine 2 mg/dL High Normal [facility] Comment on above: Order Comment: Name Collection Type:: Clean-Voided Midstream Performed By: #### C BCNO, BMP, MG #### [facility] [address] WBC,Urine 1-2 Normal 0-4 [facility] Comment on above: Order Comment: Name Collection Type:: Clean-Voided Midstream Performed By: #### C BCNO, BMP, MG #### [facility] [address] ECG 12 lead ECGon 05-23-2024 ECG 12 lead ECG [facility] [place] [address] [place] [address] Electrocardiograph Report Signed Patient: Des Jacob MR#: [id number] : 1940 Acct:[id number] Age/Sex: 83 / M ADM Date: 05/23/24 Loc: Room: [address] [place] [address] Type: ADM INOo Attending Dr: Dread Toney [...] was found Confirmed by ELENITA MUNOZ DO ([id number]) on 05/23/2024 4:21:24 PM Referred By: Electronically Signed By: ELENITA MUNOZ DO Transcribed By: MUS Signed By Elenita Munoz DO 05/23 1621 Normal [facility] Eosinophils Auto (Bld) [#/Vo l]Ordered By: Fredo Hoffmann on 05-23-2024 Eosinophils (Bld) [#/Vol] Automated eosinophil count 0.0-0.45 [facility] Eosinophils/100 WBC Auto (Bl d)Ordered By: Fredo Hoffmann on 05-23-2024 Eosinophils/100 WBC (Bld) Automated eosinophil % . [facility] Epithelial cells.squamous [# /area] in Urine sediment by Automated countOrdered By: Elenita Munoz on 05-23-2024 Epithelial cells.squamous Auto (Urine sed) [#/Area] Epithelial cells.squamous [#/area] in Urine sediment by Automated count [facility] Erythrocyte distribution wid th Auto (RBC) [Ratio]Ordered By: Fredo Hoffmann on 05-23-2024 Erythrocyte distribution width (RBC) [Ratio] Erythrocyte distribution width [Ratio] by Automated count 12.0-14.8 [facility] Erythrocytes [#/area] in Uri ne sediment by Automated countOrdered By: Elenita Munoz on 05-23-2024 RBC Auto (Urine sed) [#/Area] Erythrocytes [#/area] in Urine sediment by Automated count 0-4 [facility] Folate [Mass/volume] in Seru m or PlasmaOrdered By: Dread Toney on 05-23-2024 Folate [Mass/Vol] Folate [Mass/volume] in Serum or Plasma >5.9 [facility] Comment on above: Folate reference ran ge: >5.9 ng/mlThe WHO technical consultation on folate and vitamin [id number] has determined that folate concentrations lessthan 4 ng/ml are considered deficient. Globulin Calc (S) [Mass/Vol] Ordered By: Fredo Hoffmann on 05-23-2024 Globulin (S) [Mass/Vol] Serum globulin measurement by calculation (mass/volume) [facility] Glucose [Mass/volume] in Ser um or PlasmaOrdered By: Fredo Hoffmann on 05-23-2024 Glucose [Mass/Vol] Glucose [Mass/volume ] in Serum or Plasma High 70-100 [facility] Comment on above: ADA recommended refe [...] in Urine by Test strip High Normal [facility] Hematocrit Auto (Bld) [Volum e fraction]Ordered By: Fredo Hoffmann on 05-23-2024 Hematocrit (Bld) [Volume fraction] Hematocrit [Volume Fraction] of Blood by Automated count Low 38.8-50.0 [facility] Hemoglobin Test strip Ql (U) Ordered By: Elenita Munoz on 05-23-2024 Hemoglobin Ql (U) Hemoglobin [Presence ] in Urine by Test strip Negative [facility] Hemoglobin [Mass/volume] in BloodOrdered By: Fredo Hoffmann on 05-23-2024 Hemoglobin (Bld) [Mass/Vol] Hemoglobin [Mass/volume] in Blood Low 13.0-17.0 [facility] Hyaline casts [#/area] in Ur ine sediment by Automated countOrdered By: Elenita Munoz on 05-23-2024 Hyaline casts Auto (Urine sed) [#/Area] Hyaline casts [#/area] in Urine sediment by Automated count 0-8 [facility] Ketones Test strip Ql (U)Ord ered By: Elenita Munoz on 05-23-2024 Ketones Ql (U) Ketones [Presence] i n Urine by Test strip High Negative [facility] Leukocyte esterase [Presence ] in Urine by Test stripOrdered By: Elenita Munoz on 05-23-2024 Leukocyte esterase Test strip Ql (U) Leukocyte esterase [Presence] in Urine by Test strip Negative [facility] Leukocytes [#/area] in Urine sediment by Automated countOrdered By: Elenita Munoz on 05-23-2024 WBC Auto (Urine sed) [#/Area] Leukocytes [#/area] in Urine sediment by Automated count 0-4 [facility] Leukocytes [#/volume] correc marimar for nucleated erythrocytes in Blood by Automated counOrdered By: Fredo Hoffmann on 05-23-2024 WBC corrected for nucl RBC Auto (Bld) [#/Vol] Leukocytes [#/volume] corrected for nucleated erythrocytes in Blood by Automated coun 4.1-10.5 [facility] Lymphocytes Auto (Bld) [#/Vo l]Ordered By: Fredo Hoffmann on 05-23-2024 Lymphocytes (Bld) [#/Vol] Lymphocytes [#/volume] in Blood by Automated count 1.00-4.8 [facility] Lymphocytes/100 WBC Auto (Bl d)Ordered By: Fredo Hoffmann on 05-23-2024 Lymphocytes/100 WBC (Bld) Lymphocytes/100 leukocytes in Blood by Automated count . [facility] MCH Auto (RBC) [Entitic mass ]Ordered By: Fredo Hoffmann on 05-23-2024 MCH (RBC) [Entitic mass] MCH [Entitic mass] by Automated count 27.5-35.2 [facility] MCHC Auto (RBC) [Mass/Vol]Or dered By: Fredo Hoffmann on 05-23-2024 MCHC (RBC) [Mass/Vol] MCHC [Mass/volume] by Automated count 32.5-35.6 [facility] MCV Auto (RBC) [Entitic vol] Ordered By: Fredo Hoffmann on 05-23-2024 MCV (RBC) [Entitic vol] MCV [Entitic vol ume] by Automated count 83.5-101 [facility] Magnesiumon 05-23-2024 Magnesium [Mass/Vol] 1.7 mg/dL Low 1.9-2.7 [facility] Comment on above: Result Comment: PERF ORMED BY: [facility] [address] [place] [address] PATHOLOGIST [employer] DIRECTOR JOSUE DAMON M.D. Performed By: #### G LULS #### Point of Care testing , Magnesium [Mass/volume] in S grady or PlasmaOrdered By: Fredo Hoffmann on 05-23-2024 Magnesium [Mass/Vol] Magnesium [Mass/volume] in Serum or Plasma Low 1.9-2.7 [facility] Mixed cellular casts [#/area ] in Urine by Computer assisted methodOrdered By: Elenita Munoz on 05-23-2024 Mixed cellular casts Computer assisted (U) [#/Area] Mixed cellular casts [#/area] in Urine by Computer assisted method High None Seen [facility] Monocytes Auto (Bld) [#/Vol] Ordered By: Fredo Hoffmann on 05-23-2024 Monocytes (Bld) [#/Vol] Automated blood monocyte count 0.0-0.8 [facility] Monocytes/100 WBC Auto (Bld) Ordered By: Fredo Hoffmann on 05-23-2024 Monocytes/100 WBC (Bld) Automated monocyte % . [facility] Mucus [Presence] in Urine by AutomatedOrdered By: Elenita Munoz on 05-23-2024 Mucus Auto Ql (U) Mucus [Presence] in Urine by Automated [facility] Neutrophils Auto (Bld) [#/Vo l]Ordered By: Fredo Hoffmann on 05-23-2024 Neutrophils (Bld) [#/Vol] Neutrophils [#/volume] in Blood by Automated count 1.8-7.7 [facility] Neutrophils/100 WBC Auto (Bl d)Ordered By: Fredo Hoffmann on 05-23-2024 Neutrophils/100 WBC (Bld) Automated neutrophil % . [facility] [facility] Nitrite Test strip Ql (U)Ord ered By: Elenita Munoz on 05-23-2024 Nitrite Ql (U) Nitrite [Presence] i n Urine by Test strip Negative [facility] No Panel InformationOrdered By: Fredo Hoffmann on 05-23-2024 Estimated GFR (CKD-EPI) > 60.0 mL/Min [facility] Creatinine Clearance (Chem 52.16 [facility] Nucleated erythrocytes [Pres ence] in Blood by Automated countOrdered By: Fredo Hoffmann on 05-23-2024 Nucleated RBC Auto Ql (Bld) Nucleated erythrocytes [Presence] in Blood by Automated count 0-0.5 [facility] Platelet mean volume Auto (B ld) [Entitic vol]Ordered By: Fredo Hoffmann on 05-23-2024 Platelet mean volume (Bld) [Entitic vol] Platelet mean volume [Entitic volume] in Blood by Automated count 6.6-10.1 [facility] Platelets Auto (Bld) [#/Vol] Ordered By: Fredo Hoffmann on 05-23-2024 Platelets (Bld) [#/Vol] Platelets [#/vol ume] in Blood by Automated count 150-450 [facility] Potassium [Moles/volume] in Serum or PlasmaOrdered By: Fredo Hoffmann on 05-23-2024 Potassium [Moles/Vol] Potassium [Moles/volume] in Serum or Plasma 3.5-5.1 [facility] Protein Test strip (U) [Mass /Vol]Ordered By: Elenita Munoz on 05-23-2024 Protein (U) [Mass/Vol] Protein [Mass/vol ume] in Urine by Test strip High Negative [facility] Protein [Mass/volume] in Ser um or PlasmaOrdered By: Fredo Hoffmann on 05-23-2024 Protein [Mass/Vol] Protein [Mass/volume ] in Serum or Plasma 6.4-8.9 [facility] RBC Auto (Bld) [#/Vol]Ordere d By: Fredo Hoffmann on 05-23-2024 RBC (Bld) [#/Vol] Erythrocytes [#/volume] in Blood by Automated count 3.90-5.60 [facility] Serum or plasma albumin/glob ulin mass ratioOrdered By: Fredo Hoffmann on 05-23-2024 Albumin/Globulin [Mass ratio] Serum or plasma albumin/globulin mass ratio [facility] Serum or plasma anion gap de terminationOrdered By: Fredo Hoffmann on 05-23-2024 Anion gap [Moles/Vol] Serum or plasma an ion gap determination 6.0-15.0 [facility] Sodium [Moles/volume] in Ser um or PlasmaOrdered By: Fredo Hoffmann on 05-23-2024 Sodium [Moles/Vol] Sodium [Moles/volume ] in Serum or Plasma 136-145 [facility] Specific gravity Test strip (U) [Rel density]Ordered By: Elenita Munoz on 05-23-2024 Specific gravity (U) [Rel density] Specific gravity of Urine by Test strip 1.001-1.030 [facility] Thyroid Stimulating Hormoneo n 05-23-2024 TSH Qn 2.77 m[IU]/L Normal 0.45-5.33 [facility] Comment on above: Order Comment: Comme nt add on Performed By: #### C BCNO, BMP, MG #### [address] Thyrotropin [Units/volume] i n Serum or PlasmaOrdered By: Dread Toney on 05-23-2024 TSH Qn Thyrotropin [Units/volume] in Serum or Plasma 0.45-5.33 [facility] Troponin I High Sensitivityo n 05-23-2024 Troponin I High Sensitivity 8 Normal 0-20 [facility] Comment on above: Result Comment: The Troponin units of report have been changed to meet the Chest Pain Accreditation requirement, element EC5.M1l2. Troponin units are changed from pg/ml to ng/L. Also, the decimal is removed and results are in whole numbers. PERFORMED BY: [place] [address] PATHOLOGIST PRESCHOOL DIRECTOR JOSUE DAMON M.D. Performed By: #### G JUAN #### Point of Care testing , Troponin I.cardiac [Mass/vol ume] in Serum or Plasma by Detection limit <= 0.01 ng/Ordered By: Fredo Hoffmann on 05-23-2024 Troponin I.cardiac DL <= 0.01 ng/mL [Mass/Vol] Troponin I.cardiac [Mass/volume] in Serum or Plasma by Detection limit <= 0.01 ng/ 0-20 [facility] Comment on above: The Troponin units [...] [Mass/volume] in Serum or Plasma High 7-25 [facility] Urobilinogen Test strip (U) [Mass/Vol]Ordered By: Elenita Munoz on 05-23-2024 Urobilinogen (U) [Mass/Vol] Urobilinogen [Mass/volume] in Urine by Test strip High Normal [facility] Vit. B12/Folate Profileon Cobalamin (Vitamin B12) [Mass/Vol] 263 pg/mL Normal 180-914 [facility] Comment on above: Order Comment: Comme nt add on Performed By: #### C BCNO, BMP, MG #### [facility] [address] [place] [id number] [facility] Folate 11.0 ng/mL Normal >5.9 [facility] Comment on above: Order Comment: Comme nt add on Result Comment: Cheryl te reference range: >5.9 ng/ml The WHO technical consultation on folate and vitamin b12 deficiencies has determined that folate concentrations less than 4 ng/ml are considered deficient. Performed By: #### C BCNO, BMP, MG #### [facility] [address] [id number] [facility] Vitamin B12 ser/plasOrdered By: Dread Toney on 05-23-2024 Cobalamin (Vitamin B12) [Mass/Vol] Vitamin B12 ser/plas 180-914 [facility] Vitamin D 25 Hydroxy Totalon 05-23-2024 Vitamin D 25 Hydroxy Total 20.7 ng/mL Low 30-100 [facility] Comment on above: Order Comment: Comme nt add on Result Comment: SONI MIN D STATUS 25(OH)VITAMIN D RANGE (ng/mL) Deficient <20 Insufficient 20 to <30 Sufficient 30 to 100 Reference: Osei Smith, Silvestre KEARNS, et al. Evaluation,treatment, and prevention of vitamin D deficiency; an Endocrine Society clinical practice guideline. JCEM. 2010; 96(7):1911-. PERFORMED BY: [facility] [address] [place] [id number] PATHOLOGIST PRESCHOOL DIRECTOR JOSUE DAMON M.D. Performed By: #### G JUAN #### Point of Care testing , Vitamin D+Metabolites [Mass/ volume] in Serum or PlasmaOrdered By: Dread Toney on 05-23-2024 Vitamin D+Metabolites [Mass/Vol] Vitamin D+Metabolites [Mass/volume] in Serum or Plasma Low 30-100 [facility] Comment on above: VITAMIN D STATUS 25( OH)VITAMIN D RANGE (ng/mL) Deficient <20 Insufficient 20 to <30Sufficient 30 to 100Reference: Osei Smith, Silvestre KEARNS, et al. Evaluation,treatment, and prevention of vitamin D deficiency; an Endocrine Society clinical practice guideline. JCEM. 2010; 96(7):1911-. WBC Auto (Bld) [#/Vol]Ordere d By: Fredo Hoffmann on 05-23-2024 WBC (Bld) [#/Vol] Leukocytes [#/volume ] in Blood by Automated count 4.1-10.5 [facility] X-ray reportOrdered By: Gilbert Clarke on 05-23-20[address] [address] XRay Report Signed Patient: Des Jacob MR#: [id number] : 1940 Acct:[id number] Age/Sex: 83 / M ADM Date: 5 Loc: ER Room: Type: [facility] ER Attending Dr: Copies to: Elenita Munoz, DO Fredo Hoffmann Jr, MD~ Ordering Provider: Fredo Hoffmann Jr, [...] Clarke Jr., D.O.05/23/2024 9:03 AM Dictation Location: [facility]--22 Transcribed By: [facility] 05/23/24902 Dictated By: Shamar Clarke Jr, DO 05/23/24 09 Signed By: 05/23/24 09 [facility] XR chest 1V portableon 05-23 XR chest 1V portable [address] [address] XRay Report Signed Patient: Des Jacob MR#: [id number] : 1940 Acct:[id number] Age/Sex: 83 / M ADM Date: 05/23/24 Loc: ER Room: Type: [facility] ER Attending Dr: Copies to: Elenita Munoz, DO Fredo Hoffmann Jr, MD Ordering Provider: Fredo Hoffmann Jr, [...] Clarke Jr., DDenisa05/23/2024 9:03 AM Dictation Location: [place] [address] Transcribed By: [facility] 05/23/24902 Dictated By: Shamar Clarke Jr, DO 05/23/24900 Signed By: 05/23/24902 Normal [facility] pH Test strip (U)Ordered By: Elenita Munoz on 05-23-2024 pH (U) pH of Urine by Test strip 5.0-9.0 [facility] Alanine aminotransferase [En zymatic activity/volume] in Serum or PlasmaOrdered By: Floyd Moseley on 05-18-2024 ALT [Catalytic activity/Vol] Alanine aminotransferase [Enzymatic activity/volume] in Serum or Plasma 7-52 [facility] Albumin [Mass/volume] in Ser um or Plasma by Bromocresol green (BCG) dye binding methoOrdered By: Floyd Moseley on 05-18-2024 Albumin BCG dye [Mass/Vol] Albumin [Mass/volume] in Serum or Plasma by Bromocresol green (BCG) dye binding metho 3.5-5.7 [facility] Alkaline phosphatase [Enzyma tic activity/volume] in Serum or PlasmaOrdered By: Floyd Moseley on 05-18-2024 ALP [Catalytic activity/Vol] Alkaline phosphatase [Enzymatic activity/volume] in Serum or Plasma 34-104 [facility] Appearance of UrineOrdered B y: Floyd Moseley on 05-18-2024 Appearance (U) Urine appearance Clear [facility] Aspartate aminotransferase [ Enzymatic activity/volume] in Serum or PlasmaOrdered By: Floyd Moseley on 05-18-2024 AST [Catalytic activity/Vol] Aspartate aminotransferase [Enzymatic activity/volume] in Serum or Plasma 13-39 [facility] Bacteria [Presence] in Urine by AutomatedOrdered By: Floyd Moseley on 05-18-2024 Bacteria Auto Ql (U) Bacteria [Presence] in Urine by Automated None Seen [facility] Basophils Auto (Bld) [#/Vol] Ordered By: Floyd Moseley on 05-18-2024 Basophils (Bld) [#/Vol] Automated basoph il count 0.0-0.2 [facility] Basophils/100 WBC Auto (Bld) Ordered By: Floyd Moseley on 05-18-2024 Basophils/100 WBC (Bld) Automated basophil % . [facility] Bilirubin Test strip Ql (U)O rdered By: Floyd Moseley on 05-18-2024 Bilirubin Ql (U) Bilirubin.total [Presence] in Urine by Test strip Negative [facility] Bilirubin.total [Mass/volume ] in Serum or PlasmaOrdered By: Floyd Moseley on 05-18-2024 Bilirubin [Mass/Vol] Bilirubin.total [Mass/volume] in Serum or Plasma High 0.3-1.0 [facility] Comment on above: Samples from patient s who have taken Naproxen have shown spurious elevation in Total Bilirubin levels. A metabolite of Naproxen, O-desmethylnaproxen, has been shown to interfere with the Madalyn method for measuring Total Bilirubin. COVID Cepheid NegativeOrdere d By: Floyd Moseley on 05-18-2024 SARS-CoV-2 (COVID-19) Ab IA Ql COVID Cepheid Negative [facility] Comment on above: This is a [...] or Cepheid Disclaimer revoked sooner. PERFORMED BY: [place] [address] PATHOLOGIST PRESCHOOL DIRECTOR JOSUE DAMON M.D. Normal [facility] Comment on above: Performed By: #### C BCNO, BMP, MG #### [address] head/brain wo conon 05-18 CT head/brain wo con [facility] [place] [address] CT Scan Report Signed Patient: Des Jacob MR#: [id number] : 1940 Acct:[id number] Age/Sex: 83 / M ADM Date: 05/18/24 Loc: ER Room: Type: [facility] ER Attending Dr: Copies to: Floyd Moseley [...] Aurelia Michael M.D.05/18/2024 5:47 PM Dictation Location: [place] [address] Transcribed By: APOLINAR 05/18/241746 Dictated By: Aurelia Michael MD 05/18/241742 Signed By: 05/18/241746 Normal [facility] Calcium [Mass/volume] in Ser um or PlasmaOrdered By: Floyd Moseley on 05-18-2024 Calcium [Mass/Vol] Calcium [Mass/volume ] in Serum or Plasma 8.6-10.3 [facility] Carbon dioxide, total [Moles /volume] in Serum or PlasmaOrdered By: Floyd Moseley on 05-18-2024 CO2 [Moles/Vol] Carbon dioxide, tota l [Moles/volume] in Serum or Plasma Low 21.0-31.0 [facility] Cepheid COVID PCR Negativeon 05-18-2024 SARS-CoV-2 (COVID-19) RNA ROSEMARIE+probe Ql (Unsp spec) Negative Normal Negative [facility] Comment on above: Result Comment: This is a duplicate CepIvyDateid Xpert Xpress CoV-2/Flu/RSV Plus RNA by RT-PCR result to be used for statistical tracking purpose only. PERFORMED BY: [place] [address] [place] [address] PATHOLOGIST PRESCHOOL DIRECTOR JOSUE DAMON M.D. Performed By: #### C BCNO, BMP, MG #### [address] Chloride [Moles/volume] in S grady or PlasmaOrdered By: Floyd Moseley on 05-18-2024 Chloride [Moles/Vol] Chloride [Moles/volume] in Serum or Plasma High 98-107 [facility] Color Auto (U)Ordered By: Marilu Moseley on 05-18-2024 Color (U) Color of Urine by Auto Yellow [facility] Complete Blood Count Auto Di ffon 05-18-2024 Basophils (Bld) [#/Vol] 0.0 10*3/uL Normal 0.0-0.2 [facility] Comment on above: Result Comment: PERF ORMED BY: [place] [address] PATHOLOGIST PRESCHOOL DIRECTOR JOSUE DAMON M.D. Performed By: #### C BCNO, BMP, MG #### [address] Basophils/100 WBC (Bld) 0.6 % Normal . T marita [facility] Comment on above: Performed By: #### C BCNO, BMP, MG #### [address] Eosinophils (Bld) [#/Vol] 0.0 10*3/uL Normal 0.0-0.45 [facility] Comment on above: Performed By: #### C BCNO, BMP, MG #### [place] [address] [place] Eosinophils/100 WBC (Bld) 0.3 % Normal . [facility] Comment on above: Performed By: #### C BCNO, BMP, MG #### [address] Erythrocyte distribution width (RBC) [Ratio] 14.5 % Normal 12.0-14.8 [facility] Comment on above: Performed By: #### C BCNO, BMP, MG #### [address] Hematocrit (Bld) [Volume fraction] 41.1 % Normal 38.8-50.0 [facility] Comment on above: Performed By: #### C BCNO, BMP, MG #### [address] Hemoglobin (Bld) [Mass/Vol] 13.8 g/dL Normal 13.0-17.0 [facility] Comment on above: Performed By: #### C BCNO, BMP, MG #### [address] Lymphocytes (Bld) [#/Vol] 1.6 10*3/uL Normal 1.00-4.8 [facility] Comment on above: Performed By: #### C BCNO, BMP, MG #### [address] Lymphocytes/100 WBC (Bld) 23.7 % Normal . [facility] Comment on above: Performed By: #### C BCNO, BMP, MG #### [address] MCH (RBC) [Entitic mass] 30.9 pg Normal 27.5-35.2 [facility] Comment on above: Performed By: #### C BCNO, BMP, MG #### [address] MCV (RBC) [Entitic vol] 91.7 fL Normal 83.5-101 [facility] Comment on above: Performed By: #### C BCNO, BMP, MG #### [address] Mean Corpuscular HGB Conc 33.7 g/dL Normal 32.5-35.6 [facility] Comment on above: Performed By: #### C BCNO, BMP, MG #### [address] Monocytes (Bld) [#/Vol] 1.2 10*3/uL High 0.0-0.8 [facility] Comment on above: Performed By: #### C BCNO, BMP, MG #### [facility] [address] [place] [address] [place] Monocytes/100 WBC (Bld) 20.43 % High 0.00-20.00 [facility] Comment on above: Result Comment: For adults in ED, MDW > 20.0 may be associated with a higher risk of sepsis during the first 12 hrs of hospital admission Performed By: #### C BCNO, BMP, MG #### [facility] [address] [place] [address] [place] Monocytes/100 WBC (Bld) 17.3 % Normal . [facility] Comment on above: Performed By: #### C BCNO, BMP, MG #### [facility] [address] [place] [address] [place] Neutrophils (Bld) [#/Vol] 3.9 10*3/uL Normal 1.8-7.7 [facility] Comment on above: Performed By: #### C BCNO, BMP, MG #### [facility] [address] [place] [id number] [place] Neutrophils/100 WBC (Bld) 58.1 % Normal . [facility] Comment on above: Performed By: #### C BCNO, BMP, MG #### [facility] [address] [place] [address] [place] NRBC% 0.1 /100{WBC} Normal 0-0.5 [facility] Comment on above: Performed By: #### C BCNO, BMP, MG #### [facility] [address] [place] [id number] [place] Platelet mean volume (Bld) [Entitic vol] 8.8 fL Normal 6.6-10.1 [facility] Comment on above: Performed By: #### C BCNO, BMP, MG #### [facility] [address] [place] [id number] [place] Platelets (Bld) [#/Vol] 169 10*3/uL Normal 150-450 [facility] Comment on above: Performed By: #### C BCNO, BMP, MG #### [address] RBC (Bld) [#/Vol] 4.48 10*6/uL Normal 3.90-5.60 [facility] Comment on above: Performed By: #### C BCNO, BMP, MG #### [address] WBC (Bld) [#/Vol] 6.8 10*3/uL Normal 4.1-10.5 [facility] Comment on above: Performed By: #### C BCNO, BMP, MG #### [address] Comprehensive Metabolic Pane stephanie 05-18-2024 Albumin [Mass/Vol] 4.3 g/dL Normal 3.5-5.7 [facility] Comment on above: Performed By: #### C BCNO, BMP, MG #### [address] Albumin/Globulin [Mass ratio] 1.5 {ratio} Normal [facility] Comment on above: Performed By: #### C BCNO, BMP, MG #### [address] ALP [Catalytic activity/Vol] 96 U/L Normal 34-104 [facility] Comment on above: Performed By: #### C BCNO, BMP, MG #### [address] ALT [Catalytic activity/Vol] 11 U/L Normal 7-52 [facility] Comment on above: Performed By: #### C BCNO, BMP, MG #### [address] Anion gap [Moles/Vol] 9.3 mmol/L Normal 6.0-15.0 [facility] Comment on above: Performed By: #### C BCNO, BMP, MG #### [address] AST [Catalytic activity/Vol] 17 U/L Normal 13-39 [facility] Comment on above: Performed By: #### C BCNO, BMP, MG #### [facility] [address] Bilirubin [Mass/Vol] 1.3 mg/dL High 0.3-1.0 [facility] Comment on above: Result Comment: Samp les from patients who have taken Naproxen have shown spurious elevation in Total Bilirubin levels. A metabolite of Naproxen, O-desmethylnaproxen, has been shown to interfere with the Jendrassik-Grof method for measuring Total Bilirubin. Performed By: #### C BCNO, BMP, MG #### [facility] [address] Calcium [Mass/Vol] 9.0 mg/dL Normal 8.6-10.3 [facility] Comment on above: Performed By: #### C BCNO, BMP, MG #### [facility] [address] [place] [address] [place] Chloride [Moles/Vol] 110 mmol/L High 98-107 [facility] Comment on above: Performed By: #### C BCNO, BMP, MG #### [facility] [address] CO2 [Moles/Vol] 20.6 mmol/L Low 21.0-31.0 [facility] Comment on above: Performed By: #### C BCNO, BMP, MG #### [facility] [address] [place] [address] [place] Creatinine [Mass/Vol] 1.33 mg/dL High 0.70-1.30 [facility] Comment on above: Performed By: #### C BCNO, BMP, MG #### [facility] [address] [place] [address] [place] Creatinine Clr Calc Pharmacy 46.62 Normal [facility] Comment on above: Performed By: #### C BCNO, BMP, MG #### [facility] [address] Estimated GFR 53.700 mL/Min Normal [facility] Comment on above: Performed By: #### C BCNO, BMP, MG #### [address] Globulin (S) [Mass/Vol] 2.8 g/dL Normal T he [facility] Comment on above: Performed By: #### C BCNO, BMP, MG #### [address] Glucose [Mass/Vol] 119 mg/dL High 70-100 [facility] Comment on above: Result Comment: [facility] Glucose Reference Range is dependent on time and content of last meal. Glucose of more than 200 mg/dL in a nonstressed, ambulatory subject supports the diagnosis of Diabetes Mellitus. ADA recommended reference range Performed By: #### C BCNO, BMP, MG #### [address] Potassium [Moles/Vol] 3.9 mmol/L Normal 3.5-5.1 [facility] Comment on above: Performed By: #### C BCNO, BMP, MG #### [address] Protein [Mass/Vol] 7.1 g/dL Normal 6.4-8.9 [facility] Comment on above: Performed By: #### C BCNO, BMP, MG #### [address] Sodium [Moles/Vol] 136 mmol/L Normal 136-145 [facility] Comment on above: Performed By: #### C BCNO, BMP, MG #### [address] Urea nitrogen [Mass/Vol] 36 mg/dL High 7-25 [facility] Comment on above: Performed By: #### C BCNO, BMP, MG #### [place] [address] [place] Creatine Kinaseon 05-18-2024 CK [Catalytic activity/Vol] 163 U/L Normal 30-223 [facility] Comment on above: Performed By: #### C BCNO, BMP, MG #### [place] [address] [place] Creatine kinase [Enzymatic a ctivity/volume] in Serum or PlasmaOrdered By: Floyd Moseley on 05-18-2024 CK [Catalytic activity/Vol] Creatine kinase [Enzymatic activity/volume] in Serum or Plasma 30-223 [facility] Creatinine [Mass/volume] in Serum or PlasmaOrdered By: lFoyd Moseley on 05-18-2024 Creatinine [Mass/Vol] Creatinine [Mass/volume] in Serum or Plasma High 0.70-1.30 [facility] Dipstick and Microscopicon 0 05-18-2024 Appearance (U) Clear Normal Clear [facility] Comment on above: Order Comment: Name Collection Type:: Clean-Voided Midstream Performed By: #### C BCNO, BMP, MG #### [facility] [address] Bacteria,Urine None Seen Normal None Seen [facility] Comment on above: Order Comment: Name Collection Type:: Clean-Voided Midstream Performed By: #### C BCNO, BMP, MG #### [facility] [address] Bilirubin,Urine Negative Normal Negative [facility] Comment on above: Order Comment: Name Collection Type:: Clean-Voided Midstream Performed By: #### C BCNO, BMP, MG #### [facility] [address] Color (U) Yellow Normal Yellow [facility] Comment on above: Order Comment: Name Collection Type:: Clean-Voided Midstream Performed By: #### C BCNO, BMP, MG #### [facility] [address] Glucose Ql (U) Normal Normal Normal [facility] Comment on above: Order Comment: Name Collection Type:: Clean-Voided Midstream Performed By: #### C BCNO, BMP, MG #### [facility] [address] Hyaline Casts,Urine 0-8 Normal 0-8 [facility] Comment on above: Order Comment: Name Collection Type:: Clean-Voided Midstream Performed By: #### C BCNO, BMP, MG #### [address] Ketones Ql (U) 1+ High Negative [facility] Comment on above: Order Comment: Name Collection Type:: Clean-Voided Midstream Performed By: #### C BCNO, BMP, MG #### [address] Leukocyte esterase Test strip Ql (U) Negative Normal Negative [facility] Comment on above: Order Comment: Name Collection Type:: Clean-Voided Midstream Performed By: #### C BCNO, BMP, MG #### [address] Mucus,Urine 1+ Critically abnormal [facility] Comment on above: Order Comment: Name Collection Type:: Clean-Voided Midstream Result Comment: PERF ORMED BY: [place] [address] PATHOLOGIST PRESCHOOL DIRECTOR JOSUE DAMON M.D. Performed By: #### C BCNO, BMP, MG #### [address] Nitrite,Urine Negative Normal Negative [facility] Comment on above: Order Comment: Name Collection Type:: Clean-Voided Midstream Performed By: #### C BCNO, BMP, MG #### [address] Occult Blood,Urine Trace High Negative [facility] Comment on above: Order Comment: Name Collection Type:: Clean-Voided Midstream Result Comment: PERF ORMED BY: [place] [address] PATHOLOGIST PRESCHOOL DIRECTOR JOSUE DAMON M.D. Performed By: #### C BCNO, BMP, MG #### [address] pH (U) 5.5 [pH] Normal 5.0-9.0 [facility] Comment on above: Order Comment: Name Collection Type:: Clean-Voided Midstream Performed By: #### C BCNO, BMP, MG #### [address] [address] Protein (U) [Mass/Vol] 100 mg/dL High Negative [facility] Comment on above: Order Comment: Name Collection Type:: Clean-Voided Midstream Performed By: #### C BCNO, BMP, MG #### [address] RBC,Urine 1-2 Normal 0-4 [facility] Comment on above: Order Comment: Name Collection Type:: Clean-Voided Midstream Performed By: #### C BCNO, BMP, MG #### [address] Specificy [place],Urine 1.026 Normal 1.001-1.030 [facility] Comment on above: Order Comment: Name Collection Type:: Clean-Voided Midstream Performed By: #### C BCNO, BMP, MG #### [address] Squamous Epithelial Cell,Urine 1-2 Normal 0-2 [facility] Comment on above: Order Comment: Name Collection Type:: Clean-Voided Midstream Performed By: #### C BCNO, BMP, MG #### [address] Urobilinogen,Urine Normal Normal Normal [facility] Comment on above: Order Comment: Name Collection Type:: Clean-Voided Midstream Performed By: #### C BCNO, BMP, MG #### [address] WBC,Urine 3-4 Normal 0-4 [facility] Comment on above: Order Comment: Name Collection Type:: Clean-Voided Midstream Performed By: #### C BCNO, BMP, MG #### [address] ECG 12 lead ECGon 05-18-2024 ECG 12 lead ECG [facility] [place] [address] [place] [address] Electrocardiograph Report Signed Patient: Des Jacob MR#: [id number] : 1940 Acct:[id number] Age/Sex: 83 / M ADM Date: 05/18/24 Loc: ER Room: Type: [facility] ER Attending Dr: Ordering Provider: [...] Floyd Moseley MD 11/05 0139 Normal [facility] Eosinophils Auto (Bld) [#/Vo l]Ordered By: Floyd Moseley on 05-18-2024 Eosinophils (Bld) [#/Vol] Automated eosinophil count 0.0-0.45 [facility] Eosinophils/100 WBC Auto (Bl d)Ordered By: Floyd Moseley on 05-18-2024 Eosinophils/100 WBC (Bld) Automated eosinophil % . [facility] Epithelial cells.squamous [# /area] in Urine sediment by Automated countOrdered By: Floyd Moseley on 05-18-2024 Epithelial cells.squamous Auto (Urine sed) [#/Area] Epithelial cells.squamous [#/area] in Urine sediment by Automated count 0-2 [facility] Erythrocyte distribution wid th Auto (RBC) [Ratio]Ordered By: Floyd Moseley on 05-18-2024 Erythrocyte distribution width (RBC) [Ratio] Erythrocyte distribution width [Ratio] by Automated count 12.0-14.8 [facility] Erythrocytes [#/area] in Uri ne sediment by Automated countOrdered By: Floyd Moseley on 05-18-2024 RBC Auto (Urine sed) [#/Area] Erythrocytes [#/area] in Urine sediment by Automated count 0-4 [facility] Globulin Calc (S) [Mass/Vol] Ordered By: Floyd Moseley on 05-18-2024 Globulin (S) [Mass/Vol] Serum globulin measurement by calculation (mass/volume) [facility] Glucose Glucometer (BldC) [M ass/Vol]Ordered By: Floyd Moseley on 05-18-2024 Glucose [Mass/Vol] Capillary blood glucose measurement by glucometer (mass/volume) [facility] Comment on above: Random Glucose Refer ence Range is dependent on time and content of last meal. Glucose of more than 200 mg/dL in a nonstressed, ambulatory subject supports the diagnosis of Diabetes Mellitus. Glucose Poct Glucometerson 0 05-18-2024 Commemt1 Glu2: Cleaned Meter Normal [facility] Comment on above: Result Comment: PERF ORMED BY: [facility] [address] [place] [address] PATHOLOGIST [employer]CHO[employer] DIRECTOR JOSUE DAMON M.D. Performed By: #### G LULS #### Point of Care testing , Glucose [Mass/Vol] 115 mg/dL Normal [facility] Comment on above: Result Comment: [place] om Glucose Reference Range is dependent on [...] ] in Serum or Plasma High 70-100 [facility] Comment on above: ADA recommended refe [...] [Mass/volume] in Urine by Test strip Normal [facility] Hematocrit Auto (Bld) [Volum e fraction]Ordered By: Floyd Moseley on 05-18-2024 Hematocrit (Bld) [Volume fraction] Hematocrit [Volume Fraction] of Blood by Automated count 38.8-50.0 [facility] Hemoglobin Test strip Ql (U) Ordered By: Floyd Moseley on 05-18-2024 Hemoglobin Ql (U) Hemoglobin [Presence ] in Urine by Test strip High Negative [facility] Hemoglobin [Mass/volume] in BloodOrdered By: Floyd Moseley on 05-18-2024 Hemoglobin (Bld) [Mass/Vol] Hemoglobin [Mass/volume] in Blood 13.0-17.0 [facility] Hyaline casts [#/area] in Ur ine sediment by Automated countOrdered By: Floyd Moseley on 05-18-2024 Hyaline casts Auto (Urine sed) [#/Area] Hyaline casts [#/area] in Urine sediment by Automated count 0-8 [facility] Ketones Test strip Ql (U)Ord ered By: Floyd Moseley on 05-18-2024 Ketones Ql (U) Ketones [Presence] i n Urine by Test strip High Negative [facility] Lactate [Moles/volume] in Se rum or PlasmaOrdered By: Floyd Moseley on 05-18-2024 Lactate [Moles/Vol] Lactate [Moles/volume] in Serum or Plasma 0.5-1.9 [facility] Comment on above: Lactic Acid referenc e range has been updated to 0.5 1.9 mmol/L and the critical range of 2.0 or greater. Lactic Acidon 05-18-2024 Lactate [Moles/Vol] 1.4 mmol/L Normal 0.5-1.9 [facility] Comment on above: Result Comment: Lact ic Acid reference range has been updated to 0.5 ? 1.9 mmol/L and the critical range of 2.0 or greater. PERFORMED BY: [place] [address] PATHOLOGIST [employer]CHO[employer] DIRECTOR JOSUE DAMON M.D. Performed By: #### C BCNO, BMP, MG #### [address] Leukocyte esterase [Presence ] in Urine by Test stripOrdered By: Floyd Moseley on 05-18-2024 Leukocyte esterase Test strip Ql (U) Leukocyte esterase [Presence] in Urine by Test strip Negative [facility] Leukocytes [#/area] in Urine sediment by Automated countOrdered By: Floyd Moseley on 05-18-2024 WBC Auto (Urine sed) [#/Area] Leukocytes [#/area] in Urine sediment by Automated count 0-4 [facility] Leukocytes [#/volume] correc marimar for nucleated erythrocytes in Blood by Automated counOrdered By: Floyd Moseley on 05-18-2024 WBC corrected for nucl RBC Auto (Bld) [#/Vol] Leukocytes [#/volume] corrected for nucleated erythrocytes in Blood by Automated coun 4.1-10.5 [facility] Lymphocytes Auto (Bld) [#/Vo l]Ordered By: Floyd Moseley on 05-18-2024 Lymphocytes (Bld) [#/Vol] Lymphocytes [#/volume] in Blood by Automated count 1.00-4.8 [facility] Lymphocytes/100 WBC Auto (Bl d)Ordered By: Floyd Moseley on 05-18-2024 Lymphocytes/100 WBC (Bld) Lymphocytes/100 leukocytes in Blood by Automated count . [facility] MCH Auto (RBC) [Entitic mass ]Ordered By: Floyd Moseley on 05-18-2024 MCH (RBC) [Entitic mass] MCH [Entitic mass] by Automated count 27.5-35.2 [facility] MCHC Auto (RBC) [Mass/Vol]Or dered By: Floyd Moseley on 05-18-2024 MCHC (RBC) [Mass/Vol] MCHC [Mass/volume] by Automated count 32.5-35.6 [facility] MCV Auto (RBC) [Entitic vol] Ordered By: Floyd Moseley on 05-18-2024 MCV (RBC) [Entitic vol] MCV [Entitic vol ume] by Automated count 83.5-101 [facility] Magnesiumon 05-18-2024 Magnesium [Mass/Vol] 2.0 mg/dL Normal 1.9-2.7 [facility] Comment on above: Performed By: #### C BCNO, BMP, MG #### [address] Magnesium [Mass/volume] in S grady or PlasmaOrdered By: Floyd Moseley on 05-18-2024 Magnesium [Mass/Vol] Magnesium [Mass/volume] in Serum or Plasma 1.9-2.7 [facility] Monocyte distribution width [Entitic volume] in Blood by AutomatedOrdered By: Floyd Moseley on 05-18-2024 Monocyte distribution width Auto (Bld) [Entitic vol] Monocyte distribution width [Entitic volume] in Blood by Automated High 0.00-20.00 [facility] Comment on above: For adults in ED, MD W > 20.0 may be associated with a higher risk of sepsis during the first 12 hrs of hospital admission Monocytes Auto (Bld) [#/Vol] Ordered By: Floyd Moseley on 05-18-2024 Monocytes (Bld) [#/Vol] Automated blood monocyte count High 0.0-0.8 [facility] Monocytes/100 WBC Auto (Bld) Ordered By: Floyd Moseley on 05-18-2024 Monocytes/100 WBC (Bld) Automated monocyte % . [facility] Mucus [Presence] in Urine by AutomatedOrdered By: Floyd Moseley on 05-18-2024 Mucus Auto Ql (U) Mucus [Presence] in Urine by Automated Abnormal [facility] Neutrophils Auto (Bld) [#/Vo l]Ordered By: Floyd Moseley on 05-18-2024 Neutrophils (Bld) [#/Vol] Neutrophils [#/volume] in Blood by Automated count 1.8-7.7 [facility] Neutrophils/100 WBC Auto (Bl d)Ordered By: Floyd Moseley on 05-18-2024 Neutrophils/100 WBC (Bld) Automated neutrophil % . [facility] Nitrite Test strip Ql (U)Ord ered By: Floyd Moseley on 05-18-2024 Nitrite Ql (U) Nitrite [Presence] i n Urine by Test strip Negative [facility] No Panel InformationOrdered By: Floyd Moseley on 05-18-2024 Bedside Glucose Comment Glu2: cleaned meter [facility] Estimated GFR (CKD-EPI) 53.700 mL/Min [facility] Creatinine Clearance (Chem 46.62 [facility] Nucleated erythrocytes [Pres ence] in Blood by Automated countOrdered By: Floyd Moseley on 05-18-2024 Nucleated RBC Auto Ql (Bld) Nucleated erythrocytes [Presence] in Blood by Automated count 0-0.5 [facility] Platelet mean volume Auto (B ld) [Entitic vol]Ordered By: Floyd Moseley on 05-18-2024 Platelet mean volume (Bld) [Entitic vol] Platelet mean volume [Entitic volume] in Blood by Automated count 6.6-10.1 [facility] Platelets Auto (Bld) [#/Vol] Ordered By: Floyd Moseley on 05-18-2024 Platelets (Bld) [#/Vol] Platelets [#/vol ume] in Blood by Automated count 150-450 [facility] Potassium [Moles/volume] in Serum or PlasmaOrdered By: Floyd Moseley on 05-18-2024 Potassium [Moles/Vol] Potassium [Moles/volume] in Serum or Plasma 3.5-5.1 [facility] Protein Test strip (U) [Mass /Vol]Ordered By: Floyd Moseley on 05-18-2024 Protein (U) [Mass/Vol] Protein [Mass/vol ume] in Urine by Test strip High Negative [facility] Protein [Mass/volume] in Ser um or PlasmaOrdered By: Floyd Moseley on 05-18-2024 Protein [Mass/Vol] Protein [Mass/volume ] in Serum or Plasma 6.4-8.9 [facility] RBC Auto (Bld) [#/Vol]Ordere d By: Floyd Moseley on 05-18-2024 RBC (Bld) [#/Vol] Erythrocytes [#/volume] in Blood by Automated count 3.90-5.60 [facility] Respiratory specimen influen za A virus, influenza B virus, respiratory syncytical virOrdered By: Floyd Moseley on 05-18-2024 SARS-CoV-2 (COVID-19) RNA ROSEMARIE+probe Ql (Unsp spec) Respiratory specimen influenza A virus, influenza B virus, respiratory syncytical vir [facility] Serum or plasma albumin/glob ulin mass ratioOrdered By: Floyd Moseley on 05-18-2024 Albumin/Globulin [Mass ratio] Serum or plasma albumin/globulin mass ratio [facility] Serum or plasma anion gap de terminationOrdered By: Floyd Moseley on 05-18-2024 Anion gap [Moles/Vol] Serum or plasma an ion gap determination 6.0-15.0 [facility] Sodium [Moles/volume] in Ser um or PlasmaOrdered By: Floyd Moseley on 05-18-2024 Sodium [Moles/Vol] Sodium [Moles/volume ] in Serum or Plasma 136-145 [facility] Specific gravity Test strip (U) [Rel density]Ordered By: Floyd Moseley on 05-18-2024 Specific gravity (U) [Rel density] Specific gravity of Urine by Test strip 1.001-1.030 [facility] Thyroid Stimulating Hormoneo n 05-18-2024 TSH Qn 1.91 m[IU]/L Normal 0.45-5.33 [facility] Comment on above: Result Comment: PERF ORMED BY: [place] [address] PATHOLOGIST [employer]CHO[employer] DIRECTOR JOSUE DAMON M.D. Performed By: #### C FRANNIE BHATTI MG #### [place] [id number] [facility] Thyrotropin [Units/volume] i n Serum or PlasmaOrdered By: Floyd Moseley on 05-18-2024 TSH Qn Thyrotropin [Units/volume] in Serum or Plasma 0.45-5.33 [facility] Troponin I High Sensitivityo n 05-18-2024 Troponin I High Sensitivity 11 Normal 0-20 [facility] Comment on above: Result Comment: The Troponin units of report have been changed to meet the Chest Pain Accreditation requirement, element EC5.M1l2. Troponin units are changed from pg/ml to ng/L. Also, the decimal is removed and results are in whole numbers. PERFORMED BY: [place] [address] PATHOLOGIST [employer]CHO[employer] DIRECTOR JOSUE DAMON M.D. Performed By: #### C FRANNIE BHATTI MG #### [facility] [address] [place], [place] [id number] [facility] Troponin I.cardiac [Mass/vol ume] in Serum or Plasma by Detection limit <= 0.01 ng/Ordered By: Floyd Moseley on 05-18-2024 Troponin I.cardiac DL <= 0.01 ng/mL [Mass/Vol] Troponin I.cardiac [Mass/volume] in Serum or Plasma by Detection limit <= 0.01 ng/ 0-20 [facility] Comment on above: The Troponin units [...] [Mass/volume] in Serum or Plasma High 7-25 [facility] Urobilinogen Test strip (U) [Mass/Vol]Ordered By: Floyd Moseley on 05-18-2024 Urobilinogen (U) [Mass/Vol] Urobilinogen [Mass/volume] in Urine by Test strip Normal [facility] WBC Auto (Bld) [#/Vol]Ordere d By: Floyd Moseley on 05-18-2024 WBC (Bld) [#/Vol] Leukocytes [#/volume ] in Blood by Automated count 4.1-10.5 [facility] X-ray reportOrdered By: Katherine Michael on 05-18-2024 Study report [facility] [place] [address] XRay Report Signed Patient: Des Jacob MR#: [id number] : 1940 Acct:[id number] Age/Sex: 83 / M ADM Date: Loc: ER Room: Type: [facility] ER Attending Dr: Copies to: Floyd Moseley [...] IMPRESSION: NO ACUTE FINDINGS Impression dictated by: Aureila Michael M.D.05/18/2024 7:44 PM Dictation Location: [id number]-02 Transcribed By: APOLINAR 05/18/241943 Dictated By: Aurelia Michael MD 05/18/241940 Signed By: 05/18/241943 [facility] Work Phone: XR chest 1V portableon 05-18 XR chest 1V portable [facility] [place] [address] [place] [address] XRay Report Signed Patient: Des Jacob MR#: [id number] : 1940 Acct:[id number] Age/Sex: 83 / M ADM Date: 05/18/24 Loc: ER Room: Type: [facility] ER Attending Dr: Copies to: Floyd Moseley [...] Aurelia Michael M.D.05/18/2024 7:44 PM Dictation Location: [place] [address] Transcribed By: APOLINAR 05/18/241943 Dictated By: Aurelia Michael MD 05/18/241940 Signed By: 05/18/241943 Normal [facility] pH Test strip (U)Ordered By: Floyd Moseley on 05-18-2024 pH (U) pH of Urine by Test strip 5.0-9.0 [facility] Cryotherapy, skin lesionon 0 05-17-2024 [facility] Cryotherapy, skin lesionOrde red By: Jaz Jim on 05-17-2024 [facility] Work Phone: Hemoglobin a1c with eagon Glucose [Mass/Vol] 131 mg/dL [facility] HbA1c (Bld) [Mass fraction] 6.2 % High 4.3 - 5.6 % [facility] Comment on above: Increased risk for d iabetes: 5.7 - 6.4 diabetes: >6.4 glycemic control for adults with diabetes: <7.0 Interpretation and review of laboratory results Abnormal [facility] A1C with Estimated Average G nichol 02-27-2024 Glucose [Mass/Vol] 131 mg/dL Normal [facility] Comment on above: Result Comment: PERF ORMED BY: [place] [address] PATHOLOGIST PRESCHO[employer] DIRECTOR JOSUE DAMON M.D. Performed By: #### C BCNO, BMP, MG #### [address] HbA1c (Bld) [Mass fraction] 6.2 % High 4.3-5.6 [facility] Comment on above: Result Comment: Incr eased risk for diabetes: 5.7 - 6.4 diabetes: >6.4 glycemic control for adults with diabetes: <7.0 Performed By: #### C BCNO, BMP, MG #### [facility] [address] [place] [address] Alanine aminotransferase [En zymatic activity/volume] in Serum or PlasmaOrdered By: Phani Ambrocio on 02-27-2024 ALT [Catalytic activity/Vol] Alanine aminotransferase [Enzymatic activity/volume] in Serum or Plasma 752 [facility] Albumin [Mass/volume] in Ser um or Plasma by Bromocresol green (BCG) dye binding methoOrdered By: Phani Ambrocio on 02-27-2024 Albumin BCG dye [Mass/Vol] Albumin [Mass/volume] in Serum or Plasma by Bromocresol green (BCG) dye binding metho 3.5-5.7 [facility] Alkaline phosphatase [Enzyma tic activity/volume] in Serum or PlasmaOrdered By: Phani Ambrocio on 02-27-2024 ALP [Catalytic activity/Vol] Alkaline phosphatase [Enzymatic activity/volume] in Serum or Plasma 34-104 [facility] Aspartate aminotransferase [ Enzymatic activity/volume] in Serum or PlasmaOrdered By: Phani Ambrocio on 02-27-2024 AST [Catalytic activity/Vol] Aspartate aminotransferase [Enzymatic activity/volume] in Serum or Plasma Low 13-39 [facility] Basophils Auto (Bld) [#/Vol] Ordered By: Phani Ambrocio on 02-27-2024 Basophils (Bld) [#/Vol] Automated basoph il count 0.0-0.2 [facility] Basophils/100 WBC Auto (Bld) Ordered By: Phani Ambrocio on 02-27-2024 Basophils/100 WBC (Bld) Automated basophil % . [facility] Bilirubin.total [Mass/volume ] in Serum or PlasmaOrdered By: Phani Ambrocio on 02-27-2024 Bilirubin [Mass/Vol] Bilirubin.total [Mass/volume] in Serum or Plasma 0.3-1.0 [facility] Blood estimated average gluc ose determination by estimation from glycated hemoglobinOrdered By: Phani Ambrocio on 02-27-2024 Average glucose Estimated from glycated hemoglobin (Bld) [Mass/Vol] Glucose mean value [Mass/volume] in Blood Estimated from glycated hemoglobin [facility] CBC W Auto Differential pane l (Bld)on 02-27-2024 Basophils (Bld) [#/Vol] 0 10*3/uL 0.0 - 0.2 10*3/uL [facility] Basophils/100 WBC Manual cnt (Syn fld) 0.6 % . [facility] Eosinophils (Bld) [#/Vol] 0.2 10*3/uL 0.0 - 0.45 10*3/[facility]L [facility] WBC Manual cnt (Syn fld) 2.4 % . [facility] Erythrocyte distribution width (RBC) [Ratio] 14.3 % 12.0 - 14.8 % [facility] Hematocrit (Bld) [Volume fraction] 38.3 % Low 38.8 - 50.0 % [facility] Hemoglobin (Bld) [Mass/Vol] 12.8 g/dL Low 13.0 - 17.0 g/dL [facility] Interpretation and review of laboratory results Abnormal [facility] Lymphocytes (Bld) [#/Vol] 2 10*3/uL 1.00 - 4.8 10*3/uL [facility] Lymphocytes/100 WBC Manual cnt (Syn fld) 31.4 % . [facility] MCH (RBC) [Entitic mass] 31 pg 27.5 - 35.2 pg [facility] MCHC (RBC) [Mass/Vol] 33.3 g/dL 32.5 - 35.6 g/dL [facility] MCV (RBC) [Entitic vol] 92.9 fL 83.5 - 101 fL [facility] Monocytes (Bld) [#/Vol] 0.7 10*3/uL 0.0 - 0.8 10*3/uL [facility] Monocytes+Macrophages/1 00 WBC Manual cnt (Syn fld) 10.3 % . [facility] Neutrophils (Bld) [#/Vol] 3.5 10*3/uL 1.8 - 7.7 10*3/uL [facility] Neutrophils/100 WBC Manual cnt (Syn fld) 55.3 % . [facility] NRBC 0.1 /100{WBC} 0 - 0.5 /100{WBC} [facility] Platelet mean volume (Bld) [Entitic vol] 9.4 fL 6.6 - 10.1 fL [facility] Platelets (Bld) [#/Vol] 175 10*3/uL 150 - 450 10*3/uL [facility] RBC LM.HPF (Urine sed) [#/Area] 4.13 10*6/uL 3.90 - 5.60 10*6/uL [facility] WBC (Bld) [#/Vol] 6.4 10*3/uL 4.1 - 10.5 10*3/uL [facility] WBC LM.HPF (Urine sed) [#/Area] 6.4 10*3/uL 4.1 - 10.5 10*3/uL [facility] Calcium [Mass/volume] in Ser um or PlasmaOrdered By: Phani Ambrocio on 02-27-2024 Calcium [Mass/Vol] Calcium [Mass/volume ] in Serum or Plasma 8.6-10.3 [facility] Carbon dioxide, total [Moles /volume] in Serum or PlasmaOrdered By: Phani Ambrocio on 02-27-2024 CO2 [Moles/Vol] Carbon dioxide, tota l [Moles/volume] in Serum or Plasma 21.0-31.0 [facility] Chloride [Moles/volume] in S grady or PlasmaOrdered By: Phani Ambrocio on 02-27-2024 Chloride [Moles/Vol] Chloride [Moles/volume] in Serum or Plasma High 98-107 [facility] Cholesterol [Mass/volume] in Serum or PlasmaOrdered By: Phani Ambrocio on 02-27-2024 Cholesterol [Mass/Vol] Cholesterol [Mass/volume] in Serum or Plasma Low 140-200 [facility] Comment on above: Chol less than 200 m g/dl low riskChol 201-239 mg/dl borderline riskChol 240 mg/dl and greater high risk Cholesterol in HDL [Mass/vol ume] in Serum or PlasmaOrdered By: Phani Ambrocio on 02-27-2024 Cholesterol in HDL [Mass/Vol] Serum or plasma high density lipoprotein (HDL) cholesterol measurement - [facility] Comment on above: HDL CHOL ATP-III CLA SSIFICATION Cardiovascular RiskHDL > or equal to 60 mg/dL LOWHDL < 40 mg/dL HIGH Cholesterol in LDL Calc [Mas s/Vol]Ordered By: Phani Ambrocio on 02-27-2024 Cholesterol in LDL [Mass/Vol] Cholesterol in LDL [Mass/volume] in Serum or Plasma by calculation 0-100 [facility] Comment on above: LDL ATP III CLASSIFI CATIONLDL less than 100 mg/dL OptimalLDL 100-129 mg/dL Near or above optimalLDL 130-159 mg/dL Borderline highLDL 160-189 mg/dL HighLDL greater than 189 mg/dL Very high Cholesterol in VLDL Calc [Ma ss/Vol]Ordered By: Phani Ambrocio on 02-27-2024 Cholesterol in VLDL [Mass/Vol] Cholesterol in VLDL [Mass/volume] in Serum or Plasma by calculation [facility] Complete Blood Count Auto Di ffon 02-27-2024 Basophils (Bld) [#/Vol] 0.0 10*3/uL Normal 0.0-0.2 [facility] Comment on above: Result Comment: PERF ORMED BY: [facility] [address] [place] [address] PATHOLOGIST [employer]CHO[employer] DIRECTOR JOSUE DAMON M.D. Performed By: #### G LULS #### Point of Care testing , Basophils/100 WBC (Bld) 0.6 % Normal . [facility] Comment on above: Performed By: #### G LULS #### Point of Care testing , Eosinophils (Bld) [#/Vol] 0.2 10*3/uL Normal 0.0-0.45 [facility] Comment on above: Performed By: #### G LULS #### Point of Care testing , Eosinophils/100 WBC (Bld) 2.4 % Normal . [facility] Comment on above: Performed By: #### G LULS #### Point of Care testing , Erythrocyte distribution width (RBC) [Ratio] 14.3 % Normal 12.0-14.8 [facility] Comment on above: Performed By: #### G LULS #### Point of Care testing , Hematocrit (Bld) [Volume fraction] 38.3 % Low 38.8-50.0 [facility] Comment on above: Performed By: #### G LULS #### Point of Care testing , Hemoglobin (Bld) [Mass/Vol] 12.8 g/dL Low 13.0-17.0 [facility] Comment on above: Performed By: #### G LULS #### Point of Care testing , Lymphocytes (Bld) [#/Vol] 2.0 10*3/uL Normal 1.00-4.8 [facility] Comment on above: Performed By: #### G LULS #### Point of Care testing , Lymphocytes/100 WBC (Bld) 31.4 % Normal . [facility] Comment on above: Performed By: #### G LULS #### Point of Care testing , MCH (RBC) [Entitic mass] 31.0 pg Normal 27.5-35.2 [facility] Comment on above: Performed By: #### G LULS #### Point of Care testing , MCV (RBC) [Entitic vol] 92.9 fL Normal 83.5-101 [facility] Comment on above: Performed By: #### G LULS #### Point of Care testing , Mean Corpuscular HGB Conc 33.3 g/dL Normal 32.5-35.6 [facility] Comment on above: Performed By: #### G LULS #### Point of Care testing , Monocytes (Bld) [#/Vol] 0.7 10*3/uL Normal 0.0-0.8 [facility] Comment on above: Performed By: #### G LULS #### Point of Care testing , Monocytes/100 WBC (Bld) 10.3 % Normal . [facility] Comment on above: Performed By: #### G LULS #### Point of Care testing , Neutrophils (Bld) [#/Vol] 3.5 10*3/uL Normal 1.8-7.7 [facility] Comment on above: Performed By: #### G LULS #### Point of Care testing , Neutrophils/100 WBC (Bld) 55.3 % Normal . [facility] Comment on above: Performed By: #### G LULS #### Point of Care testing , NRBC% 0.1 /100{WBC} Normal 0-0.5 [facility] Comment on above: Performed By: #### G LULS #### Point of Care testing , Platelet mean volume (Bld) [Entitic vol] 9.4 fL Normal 6.6-10.1 [facility] Comment on above: Performed By: #### G LULS #### Point of Care testing , Platelets (Bld) [#/Vol] 175 10*3/uL Normal 150-450 [facility] Comment on above: Performed By: #### G LULS #### Point of Care testing , RBC (Bld) [#/Vol] 4.13 10*6/uL Normal 3.90-5.60 [facility] Comment on above: Performed By: #### G LULS #### Point of Care testing , WBC (Bld) [#/Vol] 6.4 10*3/uL Normal 4.1-10.5 [facility] Comment on above: Performed By: #### G LULS #### Point of Care testing , Comprehensive Metabolic Pane stephanie 02-27-2024 Albumin [Mass/Vol] 3.9 g/dL Normal 3.5-5.7 [facility] Comment on above: Performed By: #### C BCNO, BMP, MG #### [facility] [address] [place] [address] [place] Albumin/Globulin [Mass ratio] 1.9 {ratio} Normal [facility] Comment on above: Performed By: #### C BCNO, BMP, MG #### [facility] [address] ALP [Catalytic activity/Vol] 97 U/L Normal 34-104 [facility] Comment on above: Performed By: #### C BCNO, BMP, MG #### [facility] [address] ALT [Catalytic activity/Vol] 8 U/L Normal 7-52 [facility] Comment on above: Performed By: #### C BCNO, BMP, MG #### [address] Anion gap [Moles/Vol] 10.5 mmol/L Normal 6.0-15.0 [facility] Comment on above: Performed By: #### C BCNO, BMP, MG #### [place] [address] [place] AST [Catalytic activity/Vol] 11 U/L Low 13-39 [facility] Comment on above: Performed By: #### C BCNO, BMP, MG #### [place] [address] [place] Bilirubin [Mass/Vol] 0.8 mg/dL Normal 0.3-1.0 [facility] Comment on above: Performed By: #### C BCNO, BMP, MG #### [facility] [address] [place] [address] [place] Calcium [Mass/Vol] 8.7 mg/dL Normal 8.6-10.3 [facility] Comment on above: Performed By: #### C BCNO, BMP, MG #### [facility] [address] [place] [address] [place] Chloride [Moles/Vol] 108 mmol/L High 98-107 [facility] Comment on above: Performed By: #### C BCNO, BMP, MG #### [facility] [address] CO2 [Moles/Vol] 28.1 mmol/L Normal 21.0-31.0 [facility] Comment on above: Performed By: #### C BCNO, BMP, MG #### [facility] [address] Creatinine [Mass/Vol] 1.10 mg/dL Normal 0.70-1.30 [facility] Comment on above: Performed By: #### C BCNO, BMP, MG #### [facility] [address] [place] [address] [place] GFR/1.73 sq M.predicted MDRD (S/P/Bld) [Vol rate/Area] mL/min/{1.73_m2} Normal [facility] Comment on above: Performed By: #### C BCNO, BMP, MG #### [facility] [address] Globulin (S) [Mass/Vol] 2.1 g/dL Normal T [facility] Comment on above: Performed By: #### C BCNO, BMP, MG #### [facility] [address] Glucose [Mass/Vol] 129 mg/dL High 70-100 [facility] Comment on above: Result Comment: [facility] Glucose Reference Range is dependent on time and content of last meal. Glucose of more than 200 mg/dL in a nonstressed, ambulatory subject supports the diagnosis of Diabetes Mellitus. ADA recommended reference range Performed By: #### C BCNO, BMP, MG #### [facility] [address] Potassium [Moles/Vol] 4.6 mmol/L Normal 3.5-5.1 [facility] Comment on above: Performed By: #### C BCNO, BMP, MG #### [facility] [address] Protein [Mass/Vol] 6.0 g/dL Low 6.4-8.9 [facility] Comment on above: Performed By: #### C BCNO, BMP, MG #### [facility] [address] Sodium [Moles/Vol] 142 mmol/L Normal 136-145 [facility] Comment on above: Performed By: #### C BCNO, BMP, MG #### [facility] [address] [place] [id number] [facility] Urea nitrogen [Mass/Vol] 31 mg/dL High 7-25 [facility] Comment on above: Performed By: #### C BCNO, BMP, MG #### [facility] [address] Comprehensive metabolic pane stephanie 02-27-2024 Albumin [Mass/Vol] 3.9 g/dL 3.5 - 5.7 g/dL [facility] Albumin/Globulin [Mass ratio] 1.9 {ratio} [facility] ALP [Catalytic activity/Vol] 97 U/L 34 - 104 U/L [facility] ALT [Catalytic activity/Vol] 8 U/L 7 - 52 U/L [facility] Anion gap [Moles/Vol] 10.5 mmol/L 6.0 - 15.0 meq/L [facility] AST [Catalytic activity/Vol] 11 U/L Low 13 - 39 U/L [facility] Bilirubin [Mass/Vol] 0.8 mg/dL 0.3 - 1 .0 mg/dL [facility] Calcium [Mass/Vol] 8.7 mg/dL 8.6 - 10. 3 mg/dL [facility] Chloride [Moles/Vol] 108 mmol/L High 98 - 10 7 mmol/L [facility] CO2 [Moles/Vol] 28.1 mmol/L 21.0 - 31.0 mmol/L [facility] Creatinine (U) [Mass/Vol] 1.1 mg/dL 0.70 - 1.30 mg/dL [facility] ESTIMATED GFR mL/Min [facility] Globulin (S) [Mass/Vol] 2.1 g/dL [facility] Glucose [Mass/Vol] 129 mg/dL High 70 - 100 mg/dL [facility] Comment on above: Random Glucose Refer ence Range is dependent on time and content of last meal. Glucose of more than 200 mg/dL in a nonstressed, ambulatory subject supports the diagnosis of Diabetes Mellitus. ADA recommended reference range Potassium [Moles/Vol] 4.6 mmol/L 3.5 - 5.1 mmol/L [facility] Protein [Mass/Vol] 6 g/dL Low 6.4 - 8.9 g/dL [facility] Sodium [Moles/Vol] 142 mmol/L 136 - 145 mmol/L [facility] Urea nitrogen [Mass/Vol] 31 mg/dL High 7 - 25 mg/dL [facility] Creatinine [Mass/volume] in Serum or PlasmaOrdered By: Phani Ambrocio on 02-27-2024 Creatinine [Mass/Vol] Creatinine [Mass/volume] in Serum or Plasma 0.70-1.30 [facility] Creatinine [Mass/volume] in UrineOrdered By: Phani Ambrocio on 02-27-2024 Creatinine (U) [Mass/Vol] Creatinine [Mass/volume] in Urine [facility] Comment on above: No reference range e stablished Eosinophils Auto (Bld) [#/Vo l]Ordered By: Phani Ambrocio on 02-27-2024 Eosinophils (Bld) [#/Vol] Automated eosinophil count 0.0-0.45 [facility] Eosinophils/100 WBC Auto (Bl d)Ordered By: Phani Ambrocio on 02-27-2024 Eosinophils/100 WBC (Bld) Automated eosinophil % . [facility] Erythrocyte distribution wid th Auto (RBC) [Ratio]Ordered By: Phani Ambrocio on 02-27-2024 Erythrocyte distribution width (RBC) [Ratio] Erythrocyte distribution width [Ratio] by Automated count 12.0-14.8 [facility] Globulin Calc (S) [Mass/Vol] Ordered By: Phani Ambrocio on 02-27-2024 Globulin (S) [Mass/Vol] Serum globulin measurement by calculation (mass/volume) [facility] Glucose [Mass/volume] in Ser um or PlasmaOrdered By: Phani Ambrocio on 02-27-2024 Glucose [Mass/Vol] Glucose [Mass/volume ] in Serum or Plasma High 70-100 [facility] Comment on above: ADA recommended refe rence rangeRandom Glucose Reference Range is dependent on time and content of last meal. Glucose of more than 200 mg/dL in a nonstressed, ambulatory subject supports the diagnosis of Diabetes Mellitus. Hematocrit Auto (Bld) [Volum e fraction]Ordered By: Phani Ambrocio on 02-27-2024 Hematocrit (Bld) [Volume fraction] Hematocrit [Volume Fraction] of Blood by Automated count Low 38.8-50.0 [facility] Hemoglobin A1c/Hemoglobin.to david in BloodOrdered By: Phani Ambrocio on 02-27-2024 HbA1c (Bld) [Mass fraction] Hemoglobin A1c percentage High 4.3-5.6 [facility] Comment on above: Increased risk for d iabetes: 5.7 - 6.4diabetes: >6.4glycemic control for adults with diabetes: <7.0 Hemoglobin [Mass/volume] in BloodOrdered By: Phani Ambrocio on 02-27-2024 Hemoglobin (Bld) [Mass/Vol] Hemoglobin [Mass/volume] in Blood Low 13.0-17.0 [facility] Leukocytes [#/volume] correc marimar for nucleated erythrocytes in Blood by Automated counOrdered By: Phani Ambrocio on 02-27-2024 WBC corrected for nucl RBC Auto (Bld) [#/Vol] Leukocytes [#/volume] corrected for nucleated erythrocytes in Blood by Automated coun 4.1-10.5 [facility] Lipid 1996 panelon 4 Cholesterol [Mass/Vol] 111 mg/dL Low 140 - 200 mg/dL [facility] Comment on above: Chol less than 200 m g/dl low risk Chol 201-239 mg/dl borderline risk Chol 240 mg/dl and greater high risk Cholesterol in HDL [Mass/Vol] 53 mg/dL 23 - 92 mg/dL [facility] Comment on above: HDL CHOL ATP-III CLA SSIFICATION Cardiovascular Risk HDL > or equal to 60 mg/dL LOW HDL < 40 mg/dL HIGH Cholesterol.total/Janeen sterol in HDL [Mass ratio] 2.1 {ratio} NINF - 5.0 [facility] LDL CHOLESTEROL,CALCULATED 48 mg/dL 0 - 100 mg/dL [facility] Comment on above: LDL ATP III CLASSIFI CATION LDL less than 100 mg/dL Optimal LDL 100-129 mg/dL Near or above optimal LDL 130-159 mg/dL Borderline high LDL 160-189 mg/dL High LDL greater than 189 mg/dL Very high TRIGLYCERIDE W/REFLEX 49 mg/dL 0 - 14 9 mg/dL [facility] Comment on above: TRIG ATP III CLASSIF ICATION TRIG less than 150 mg/dL Normal TRIG 150-199 mg/dL Borderline high TRIG 200-500 mg/dL High TRIG greater than 500 mg/dL Very high Standard traceable to the Center for Disease Conrtrol and Prevention (CDC) test method. VLDL CHOLESTEROL 9 mg/dL [facility] Lipid Panelon 02-27-2024 Cholesterol [Mass/Vol] 111 mg/dL Low 140-200 [facility] Comment on above: Result Comment: Chol less than 200 mg/dl low risk Chol 201-239 mg/dl borderline risk Chol 240 mg/dl and greater high risk Performed By: #### C BCNO, BMP, MG #### [facility] [address] Cholesterol in HDL [Mass/Vol] 53 mg/dL Normal 23-92 [facility] Comment on above: Result Comment: HDL CHOL ATP-III CLASSIFICATION Cardiovascular Risk HDL > or equal to 60 mg/dL LOW HDL < 40 mg/dL HIGH Performed By: #### C BCNO, BMP, MG #### [facility] [address] [place] [address] [place] Cholesterol.total/Janeen sterol in HDL [Mass ratio] 2.1 {ratio} Normal <5.0 [facility] Comment on above: Result Comment: PERF ORMED BY: [place] [address] PATHOLOGIST PRESCHOOL DIRECTOR JOSUE DAMON M.D. Performed By: #### C BCNO, BMP, MG #### [facility] [address] [place] [id number] [place] LDL Cholesterol,Calculated 48 mg/dL Normal 0-100 [facility] Comment on above: Result Comment: LDL ATP III CLASSIFICATION LDL less than 100 mg/dL Optimal LDL 100-129 mg/dL Near or above optimal LDL 130-159 mg/dL Borderline high LDL 160-189 mg/dL High LDL greater than 189 mg/dL Very high Performed By: #### C BCNO, BMP, MG #### [facility] [address] [place] [id number] [place] Triglyceride w/Reflex 49 mg/dL Normal 0-149 [facility] Comment on above: Result Comment: TRIG ATP III CLASSIFICATION TRIG less than 150 mg/dL Normal TRIG 150-199 mg/dL Borderline high TRIG 200-500 mg/dL High TRIG greater than 500 mg/dL Very high Standard traceable to the Center for Disease Conrtrol and Prevention (CDC) test method. Performed By: #### C BCNO, BMP, MG #### [facility] [address] VLDL CHOLESTEROL 9 mg/dL Normal [facility] Comment on above: Performed By: #### C BCNO, BMP, MG #### [facility] [address] Lymphocytes Auto (Bld) [#/Vo l]Ordered By: Phani Ambrocio on 02-27-2024 Lymphocytes (Bld) [#/Vol] Lymphocytes [#/volume] in Blood by Automated count 1.00-4.8 [facility] Lymphocytes/100 WBC Auto (Bl d)Ordered By: Phani Ambrocio on 02-27-2024 Lymphocytes/100 WBC (Bld) Lymphocytes/100 leukocytes in Blood by Automated count . [facility] MCH Auto (RBC) [Entitic mass ]Ordered By: Phani Ambrocio on 02-27-2024 MCH (RBC) [Entitic mass] MCH [Entitic mass] by Automated count 27.5-35.2 [facility] MCHC Auto (RBC) [Mass/Vol]Or dered By: Phani Ambrocio on 02-27-2024 MCHC (RBC) [Mass/Vol] MCHC [Mass/volume] by Automated count 32.5-35.6 [facility] MCV Auto (RBC) [Entitic vol] Ordered By: Phani Ambrocio on 02-27-2024 MCV (RBC) [Entitic vol] MCV [Entitic vol ume] by Automated count 83.5-101 [facility] MicroAlb Creat Ratio,Uon Albumin DL <= 20 mg/L (U) [Mass/Vol] 3.2 mg/dL High 0.0-1.8 [facility] Comment on above: Performed By: #### G LULS #### Point of Care testing , Creatinine, Urine (Random) 109.00 mg/dL Normal [facility] Comment on above: Result Comment: No r eference range established Performed By: #### G LULS #### Point of Care testing , Microalbumin/Creatinine Ratio 29.4 mg/g Normal 0.0-30.0 [facility] Comment on above: Result Comment: 30-3 00 mg/g indicates an increased risk for diabetic nephropathy. Greater than 300 mg/g is consistent with clinical nephropathy. (Am. J. Kidney Disease 1995, 25:107) PERFORMED BY: [facility] [address] [place] [address] PATHOLOGIST [employer]CHOOL DIRECTOR JOSUE DAMON M.D. Performed By: #### G LULS #### Point of Care testing , Microalbumin [Mass/volume] i n UrineOrdered By: Phani Ambrocio on 02-27-2024 Albumin DL <= 20 mg/L (U) [Mass/Vol] Microalbumin [Mass/volume] in Urine High 0.0-1.8 [facility] Microalbumin/Creatinine rati o panel (U)on 02-27-2024 Albumin [Mass/Vol] 3.2 mg/dL High 0.0 - 1.8 mg/dL [facility] Creatinine spec 2 (U) [Mass/Vol] 109 mg/dL [facility] Comment on above: No reference range e stablished Interpretation and review of laboratory results Abnormal [facility] MICROALBUMIN/CREATININE RATIO 29.4 mg/g 0.0 - 30.0 mg/g [facility] Comment on above: 30-300 mg/g indicate s an increased risk for diabetic nephropathy. Greater than 300 mg/g is consistent with clinical nephropathy. (Am. J. Kidney Disease 1994, 25:107) [facility] Monocytes Auto (Bld) [#/Vol] Ordered By: Phani Ambrocio on 02-27-2024 Monocytes (Bld) [#/Vol] Automated blood monocyte count 0.0-0.8 [facility] Monocytes/100 WBC Auto (Bld) Ordered By: Phani Ambrocio on 02-27-2024 Monocytes/100 WBC (Bld) Automated monocyte % . [facility] Neutrophils Auto (Bld) [#/Vo l]Ordered By: Phani Ambrocio on 02-27-2024 Neutrophils (Bld) [#/Vol] Neutrophils [#/volume] in Blood by Automated count 1.8-7.7 [facility] Neutrophils/100 WBC Auto (Bl d)Ordered By: Phani Ambrocio on 02-27-2024 Neutrophils/100 WBC (Bld) Automated neutrophil % . [facility] No Panel Informationon 02-26 Interpretation and review of laboratory results Abnormal [facility] No Panel InformationOrdered By: Phani Ambrocio on 02-27-2024 Estimated GFR (CKD-EPI) > 60.0 mL/Min [facility] Creatinine Clearance (Chem N/A [facility] Nucleated erythrocytes [Pres ence] in Blood by Automated countOrdered By: Phani Ambrocio on 02-27-2024 Nucleated RBC Auto Ql (Bld) Nucleated erythrocytes [Presence] in Blood by Automated count 0-0.5 [facility] Platelet mean volume Auto (B ld) [Entitic vol]Ordered By: Phani Ambrocio on 02-27-2024 Platelet mean volume (Bld) [Entitic vol] Platelet mean volume [Entitic volume] in Blood by Automated count 6.6-10.1 [facility] Platelets Auto (Bld) [#/Vol] Ordered By: Phani Ambrocio on 02-27-2024 Platelets (Bld) [#/Vol] Platelets [#/vol ume] in Blood by Automated count 150-450 [facility] Potassium [Moles/volume] in Serum or PlasmaOrdered By: Phani Ambrocio on 02-27-2024 Potassium [Moles/Vol] Potassium [Moles/volume] in Serum or Plasma 3.5-5.1 [facility] Protein [Mass/volume] in Ser um or PlasmaOrdered By: Phani Ambrocio on 02-27-2024 Protein [Mass/Vol] Protein [Mass/volume ] in Serum or Plasma Low 6.4-8.9 [facility] RBC Auto (Bld) [#/Vol]Ordere d By: Phani Ambrocio on 02-27-2024 RBC (Bld) [#/Vol] Erythrocytes [#/volume] in Blood by Automated count 3.90-5.60 [facility] Serum or plasma albumin/glob ulin mass ratioOrdered By: Phani Ambrocio on 02-27-2024 Albumin/Globulin [Mass ratio] Serum or plasma albumin/globulin mass ratio [facility] Serum or plasma anion gap de terminationOrdered By: Phani Ambrocio on 02-27-2024 Anion gap [Moles/Vol] Serum or plasma an ion gap determination 6.0-15.0 [facility] Serum or plasma total choles terol/high density lipoprotein (HDL) cholesterol mass ratOrdered By: Phani Ambrocio on 02-27-2024 Cholesterol.total/Janeen sterol in HDL [Mass ratio] Serum or plasma total cholesterol/high density lipoprotein (HDL) cholesterol mass rat <5.0 [facility] Sodium [Moles/volume] in Ser um or PlasmaOrdered By: Phani Ambrocio on 02-27-2024 Sodium [Moles/Vol] Sodium [Moles/volume ] in Serum or Plasma 136-145 [facility] Triglyceride [Mass/volume] i n Serum or PlasmaOrdered By: Phani Ambrocio on 02-27-2024 Triglyceride [Mass/Vol] Triglyceride [Mass/volume] in Serum or Plasma 0-149 [facility] Comment on above: TRIG ATP III [...] [Mass/volume] in Serum or Plasma High 7-25 [facility] Urine microalbumin/creatinin e mass ratioOrdered By: Phani Ambrocio on 02-27-2024 Albumin/Creatinine DL <= 20 mg/L (U) [Mass ratio] Urine microalbumin/creatini ne mass ratio 0.0-30.0 [facility] Comment on above: 30-300 mg/g indicate s an increased risk for diabetic nephropathy. Greater than 300 mg/g is consistent with clinical nephropathy. (Am. J. Kidney Disease 1995, 25:107) WBC Auto (Bld) [#/Vol]Ordere d By: Phani Ambrocio on 02-27-2024 WBC (Bld) [#/Vol] Leukocytes [#/volume ] in Blood by Automated count 4.1-10.5 [facility] Hemoglobin a1c with eagon Glucose [Mass/Vol] 128 mg/dL [facility] HbA1c (Bld) [Mass fraction] 6.1 % High 4.3 - 5.6 % [facility] Comment on above: Increased risk for d iabetes: 5.7 - 6.4 diabetes: >6.4 glycemic control for adults with diabetes: <7.0 Interpretation and review of laboratory results Abnormal [facility] FASTING. JKW [facility] A1C with Estimated Average G luon 11-16-2023 Glucose [Mass/Vol] 128 mg/dL Normal [facility] Comment on above: Order Comment: FASTI ODALYS. JKW Result Comment: PERF ORMED BY: [place] [address] PATHOLOGIST PRESCHOOL DIRECTOR CECILIA CARBONE M.D. Performed By: #### C BCNO, BMP, MG #### [facility] [address] [place] [address] HbA1c (Bld) [Mass fraction] 6.1 % High 4.3-5.6 [facility] Comment on above: Order Comment: FASTI NG. JKW Result Comment: Incr eased risk for diabetes: 5.7 - 6.4 diabetes: >6.4 glycemic control for adults with diabetes: <7.0 Performed By: #### C BCNO, BMP, MG #### [facility] [address] [place] [address] Alanine aminotransferase [En zymatic activity/volume] in Serum or PlasmaOrdered By: Phani Ambrocio on 11-16-2023 ALT [Catalytic activity/Vol] 9 U/L Normal [facility] Comment on above: Order Comment: FASTI NG. JKW Performed By: #### C BCNO, BMP, MG #### [facility] [address] [place] [address] [place] Albumin [Mass/volume] in Ser um or Plasma by Bromocresol green (BCG) dye binding methoOrdered By: Phani Ambrocio on 11-16-2023 Albumin BCG dye [Mass/Vol] 4.1 g/dL 3.5-5.7 [facility] Alkaline phosphatase [Enzyma tic activity/volume] in Serum or PlasmaOrdered By: Phani Ambrocio on 11-16-2023 ALP [Catalytic activity/Vol] 90 U/L Normal 34-104 [facility] Comment on above: Order Comment: ISI MORROW. JKW Performed By: #### C BCNO, BMP, MG #### [facility] [address] Aspartate aminotransferase [ Enzymatic activity/volume] in Serum or PlasmaOrdered By: Phani Ambrocio on 11-16-2023 AST [Catalytic activity/Vol] 13 U/L Normal 13-39 [facility] Comment on above: Order Comment: ISI ChanceKW Performed By: #### C BCNO, BMP, MG #### [address] Automated basophil %Ordered By: Phani Ambrocio on 11-16-2023 Basophils/100 WBC (Bld) 0.4 % Normal . [facility] Comment on above: Order Comment: ISI MORROW. JKW Performed By: #### C BCNO, BMP, MG #### [facility] [address] Automated basophil countOrde red By: Phani Ambrocio on 11-16-2023 Basophils (Bld) [#/Vol] 0.0 10*3/uL Normal 0.0-0.2 [facility] Comment on above: Order Comment: FASTJohn Paul DYSON JKW Result Comment: PERF ORMED BY: [place] [address] PATHOLOGIST PRESCHOOL DIRECTOR CECILIA CARBONE M.D. Performed By: #### C BCNO, BMP, MG #### [facility] [address] [place] [address] Automated blood monocyte cou ntOrdered By: Phani Ambrocio on 11-16-2023 Monocytes (Bld) [#/Vol] 0.7 10*3/uL Normal 0.0-0.8 [facility] Comment on above: Order Comment: FASTI NG. JKW Performed By: #### C BCNO, BMP, MG #### [facility] [address] Automated eosinophil %Ordere d By: Phani Ambrocio on 11-16-2023 Eosinophils/100 WBC (Bld) 0.7 % Normal . [facility] Comment on above: Order Comment: FASTI NG. JKW Performed By: #### C BCNO, BMP, MG #### [address] Automated eosinophil countOr dered By: Phani Ambrocio on 11-16-2023 Eosinophils (Bld) [#/Vol] 0.0 10*3/uL Normal 0.0-0.45 [facility] Comment on above: Order Comment: FASTI NG. JKW Performed By: #### C BCNO, BMP, MG #### [address] Automated monocyte %Ordered By: Phani Ambrocio on 11-16-2023 Monocytes/100 WBC (Bld) 11.0 % Normal . [facility] Comment on above: Order Comment: FASTI NG. JKW Performed By: #### C BCNO, BMP, MG #### [facility] [address] Automated neutrophil %Ordere d By: Phani Ambrocio on 11-16-2023 Neutrophils/100 WBC (Bld) 63.2 % Normal . [facility] Comment on above: Order Comment: FASTI NG. JKW Performed By: #### C BCNO, BMP, MG #### [address] Bilirubin.total [Mass/volume ] in Serum or PlasmaOrdered By: Phani Ambrocio on 11-16-2023 Bilirubin [Mass/Vol] 1.1 mg/dL High 0.3-1.0 [facility] Comment on above: Order Comment: ISI MORROW. JKW Performed By: #### C BCNO, BMP, MG #### [facility] [address] CBC W Auto Differential pane l (Bld)on 11-16-2023 Basophils (Bld) [#/Vol] 0.0 10*3/uL 0.0 - 0.2 10*3/uL [facility] Basophils/100 WBC Manual cnt (Syn fld) 0.4 % . [facility] Eosinophils (Bld) [#/Vol] 0.0 10*3/uL 0.0 - 0.45 10*3/uL [facility] Eosinophils/100 WBC Manual cnt (Syn fld) 0.7 % . [facility] Erythrocyte distribution width (RBC) [Ratio] 14.3 % 12.0 - 14.8 % [facility] Hematocrit (Bld) [Volume fraction] 38.9 % 38.8 - 50.0 % [facility] Hemoglobin (Bld) [Mass/Vol] 13.0 g/dL 13.0 - 17.0 g/dL [facility] Lymphocytes (Bld) [#/Vol] 1.5 10*3/uL 1.00 - 4.8 10*3/uL [facility] Lymphocytes/100 WBC Manual cnt (Syn fld) 24.7 % . [facility] MCH (RBC) [Entitic mass] 31.3 pg 27.5 - 35.2 pg [facility] MCHC (RBC) [Mass/Vol] 33.4 g/dL 32.5 - 35.6 g/dL [facility] M[facility] (RBC) [Entitic vol] 93.9 fL 83.5 - 101 fL [facility] Monocytes (Bld) [#/Vol] 0.7 10*3/uL 0.0 - 0.8 10*3/uL [facility] Monocytes+Macrophages/1 00 WBC Manual cnt (Syn fld) 11.0 % . [facility] Neutrophils (Bld) [#/Vol] 3.8 10*3/uL 1.8 - 7.7 10*3/uL [facility] Neutrophils/100 WBC Manual cnt (Syn fld) 63.2 % . [facility] 0.0 /100{WBC} 0 - 0.5 /100{WBC} [facility] Platelet mean volume (Bld) [Entitic vol] 9.2 fL 6.6 - 10.1 fL [facility] Platelets (Bld) [#/Vol] 174 10*3/uL 150 - 450 10*3/uL [facility] RBC LM.HPF (Urine sed) [#/Area] 4.14 /[HPF] 3.90 - 5.60 [facility] WBC (Bld) [#/Vol] 6.1 10*3/uL 4.1 - 10.5 10*3/uL [facility] WBC LM.HPF (Urine sed) [#/Area] 6.1 10*3/uL 4.1 - 10.5 10*3/uL [facility] FASTING. JKW [facility] Calcium [Mass/volume] in Ser um or PlasmaOrdered By: Phani Ambrocio on 11-16-2023 Calcium [Mass/Vol] 9.0 mg/dL Normal 8.6-10.3 [facility] Comment on above: Order Comment: FASTI ODALYS. JKW Performed By: #### C BCNO, BMP, MG #### [facility] [address] [place] [address] [place] Carbon dioxide, total [Moles /volume] in Serum or PlasmaOrdered By: Phani Ambrocio on 11-16-2023 CO2 [Moles/Vol] 28.0 mmol/L Normal 21.0-31.0 [facility] Comment on above: Order Comment: FASTI NG. JKW Performed By: #### C BCNO, BMP, MG #### [facility] [address] [place] [id number] [place] Chloride [Moles/volume] in S grady or PlasmaOrdered By: Phani Ambrocio on 11-16-2023 Chloride [Moles/Vol] 107 mmol/L Normal 98-107 [facility] Comment on above: Order Comment: FASTI NG. JKW Performed By: #### C BCNO, BMP, MG #### [facility] [address] [place] [id number] [place] Cholesterol [Mass/volume] in Serum or PlasmaOrdered By: Phani Ambrocio on 11-16-2023 Cholesterol [Mass/Vol] 116 mg/dL Low 140-200 [facility] Comment on above: Chol less than 200 m g/dl low riskChol 201-239 mg/dl borderline riskChol 240 mg/dl and greater high risk Order Comment: FASTI NG. JKW Result Comment: Chol less than 200 mg/dl low risk Chol 201-239 mg/dl borderline risk Chol 240 mg/dl and greater high risk Performed By: #### C BCNO, BMP, MG #### [facility] [address] Cholesterol in LDL Calc [Mas s/Vol]Ordered By: Phani Ambrocio on 11-16-2023 Cholesterol in LDL [Mass/Vol] 51 mg/dL 0-100 [facility] Comment on above: LDL ATP III CLASSIFI CATIONLDL less than 100 mg/dL OptimalLDL 100-129 mg/dL Near or above optimalLDL 130-159 mg/dL Borderline highLDL 160-189 mg/dL HighLDL greater than 189 mg/dL Very high Cholesterol in VLDL Calc [Ma ss/Vol]Ordered By: Phani Ambrocio on 11-16-2023 Cholesterol in VLDL [Mass/Vol] 14 mg/dL [facility] Complete Blood Count Auto Di ffon 11-16-2023 Mean Corpuscular HGB Conc 33.4 g/dL Normal 32.5-35.6 [facility] Comment on above: Order Comment: FASTI NG. JKW Performed By: #### C BCNO, BMP, MG #### [address] NRBC% 0.0 /100{WBC} Normal 0-0.5 [facility] Comment on above: Order Comment: FASTI NG. JKW Performed By: #### C BCNO, BMP, MG #### [facility] [address] Comprehensive Metabolic Pane stephanie 11-16-2023 Albumin [Mass/Vol] 4.1 g/dL Normal 3.5-5.7 [facility] Comment on above: Order Comment: FASTI NG. JKW Performed By: #### C BCNO, BMP, MG #### [address] [place] [address] [place] GFR/1.73 sq M.predicted MDRD (S/P/Bld) [Vol rate/Area] mL/min/{1.73_m2} Normal [facility] Comment on above: Order Comment: FASTI NG. JKW Performed By: #### C BCNO, BMP, MG #### [facility] [address] Creatinine [Mass/volume] in Serum or PlasmaOrdered By: Phani Ambrocio on 11-16-2023 Creatinine [Mass/Vol] 1.21 mg/dL Normal 0.70-1.30 [facility] Comment on above: Order Comment: FASTI NG. JKW Performed By: #### C BCNO, BMP, MG #### [place] [address] [place] Creatinine [Mass/volume] in UrineOrdered By: Phani Ambrocio on 11-16-2023 Creatinine (U) [Mass/Vol] 143.00 mg/dL [facility] Comment on above: No reference range e stablished Erythrocyte distribution wid th [Ratio] by Automated countOrdered By: Phani Ambrocio on 11-16-2023 Erythrocyte distribution width (RBC) [Ratio] 14.3 % Normal 12.0-14.8 [facility] Comment on above: Order Comment: FASTI NG. JKW Performed By: #### C BCNO, BMP, MG #### [place] [address] [place] Erythrocytes [#/volume] in B lood by Automated countOrdered By: Phani Ambrocio on 11-16-2023 RBC (Bld) [#/Vol] 4.14 10*6/uL Normal 3.90-5.60 [facility] Comment on above: Order Comment: FASTI NG. JKW Performed By: #### C BCNO, BMP, MG #### [place] [address] [place] Glucose [Mass/volume] in Ser um or PlasmaOrdered By: Phani Ambrocio on 11-16-2023 Glucose [Mass/Vol] 107 mg/dL High 70-100 [facility] Comment on above: ADA recommended refe rence rangeRandom Glucose Reference Range is dependent on time and content of last meal. Glucose of more than 200 mg/dL in a nonstressed, ambulatory subject supports the diagnosis of Diabetes Mellitus. Order Comment: ISI MORROW. JKW Result Comment: [place] om Glucose Reference Range is dependent on time and content of last meal. Glucose of more than 200 mg/dL in a nonstressed, ambulatory subject supports the diagnosis of Diabetes Mellitus. ADA recommended reference range Performed By: #### C BCNO, BMP, MG #### [facility] [address] Hematocrit [Volume Fraction] of Blood by Automated countOrdered By: Phani Ambrocio on 11-16-2023 Hematocrit (Bld) [Volume fraction] 38.9 % Normal 38.8-50.0 [facility] Comment on above: Order Comment: ISI MORROW. JKW Performed By: #### C BCNO, BMP, MG #### [facility] [address] [place] [address] [place] Hemoglobin [Mass/volume] in BloodOrdered By: Phani Ambrocio on 11-16-2023 Hemoglobin (Bld) [Mass/Vol] 13.0 g/dL Normal 13.0-17.0 [facility] Comment on above: Order Comment: ISI MORROW. JKW Performed By: #### C BCNO, BMP, MG #### [facility] [address] [place] [address] [place] Leukocytes [#/volume] correc marimar for nucleated erythrocytes in Blood by Automated counOrdered By: Phani Ambrocio on 11-16-2023 WBC corrected for nucl RBC Auto (Bld) [#/Vol] 6.1 10*3/uL 4.1-10.5 [facility] Leukocytes [#/volume] in Blo od by Automated countOrdered By: Phani Ambrocio on 11-16-2023 WBC (Bld) [#/Vol] 6.1 10*3/uL Normal 4.1-10.5 [facility] Comment on above: Order Comment: FASTI ODALYS. JKW Performed By: #### C BCNO, BMP, MG #### [facility] [address] Lipid Panelon 11-16-2023 LDL Cholesterol,Calculated 51 mg/dL Normal 0-100 [facility] Comment on above: Order Comment: ISI DYSON JKW Result Comment: LDL ATP III CLASSIFICATION LDL less than 100 mg/dL Optimal LDL 100-129 mg/dL Near or above optimal LDL 130-159 mg/dL Borderline high LDL 160-189 mg/dL High LDL greater than 189 mg/dL Very high Performed By: #### C BCNO, BMP, MG #### [facility] [address] Triglyceride w/Reflex 70 mg/dL Normal 0-149 [facility] Comment on above: Order Comment: ISI MORROW. JKW Result Comment: TRIG ATP III CLASSIFICATION TRIG less than 150 mg/dL Normal TRIG 150-199 mg/dL Borderline high TRIG 200-500 mg/dL High TRIG greater than 500 mg/dL Very high Standard traceable to the Center for Disease Conrtrol and Prevention (CDC) test method. Performed By: #### C BCNO, BMP, MG #### [facility] [address] VLDL CHOLESTEROL 14 mg/dL Normal [facility] Comment on above: Order Comment: ISI MORROW. JKW Performed By: #### C BCNO, BMP, MG #### [facility] [address] [place] [id number] [place] Lymphocytes [#/volume] in Bl ood by Automated countOrdered By: Phani Ambrocio on 11-16-2023 Lymphocytes (Bld) [#/Vol] 1.5 10*3/uL Normal 1.00-4.8 [facility] Comment on above: Order Comment: ISI MORROW. JKW Performed By: #### C BCNO, BMP, MG #### [facility] [address] [place] [id number] [place] Lymphocytes/100 leukocytes i n Blood by Automated countOrdered By: Phani Ambrocio on 11-16-2023 Lymphocytes/100 WBC (Bld) 24.7 % Normal . [facility] Comment on above: Order Comment: FASTI NG. JKW Performed By: #### C BCNO, BMP, MG #### [facility] [address] [place] [address] MCH [Entitic mass] by Automa marimar countOrdered By: Phani Ambrocio on 11-16-2023 MCH (RBC) [Entitic mass] 31.3 pg Normal 27.5-35.2 [facility] Comment on above: Order Comment: FASTI NG. JKW Performed By: #### C BCNO, BMP, MG #### [address] MCHC Auto (RBC) [Mass/Vol]Or dered By: Phani Ambrocio on 11-16-2023 MCHC (RBC) [Mass/Vol] 33.4 g/dL 32.5-35.6 [facility] MCV [Entitic volume] by Auto mated countOrdered By: Phani Ambrocio on 11-16-2023 MCV (RBC) [Entitic vol] 93.9 fL Normal 83.5-101 [facility] Comment on above: Order Comment: FASTI NG. JKW Performed By: #### C BCNO, BMP, MG #### [address] MicroAlb Creat Ratio,Uon Creatinine, Urine (Random) 143.00 mg/dL Normal [facility] Comment on above: Order Comment: FASTI NG. JKW Result Comment: No r eference range established Performed By: #### C BCNO, BMP, MG #### [address] Microalbumin/Creatinine Ratio 18.2 mg/g Normal 0.0-30.0 [facility] Comment on above: Order Comment: FASTI NG. JKW Result Comment: 30-3 00 mg/g indicates an increased risk for diabetic nephropathy. Greater than 300 mg/g is consistent with clinical nephropathy. (Am. J. Kidney Disease 1994, 25:107) PERFORMED BY: [place] [address] PATHOLOGIST PRESCHOOL DIRECTOR CECILIA CARBONE M.D. Performed By: #### C BCNO, BMP, MG #### [facility] [address] Microalbumin [Mass/volume] i n UrineOrdered By: Phani Ambrocio on 11-16-2023 Albumin DL <= 20 mg/L (U) [Mass/Vol] 2.6 mg/dL High 0.0-1.8 [facility] Comment on above: Order Comment: FASTI NG. JKW Performed By: #### C BCNO, BMP, MG #### [facility] [address] Microalbumin/Creatinine rati o panel (U)on 11-16-2023 Albumin [Mass/Vol] 2.6 mg/dL High 0.0 - 1.8 mg/dL [facility] Creatinine spec 2 (U) [Mass/Vol] 143.00 mg/dL [facility] Comment on above: No reference range e stablished Interpretation and review of laboratory results Abnormal [facility] MICROALBUMIN/CREATININE RATIO 18.2 mg/g 0.0 - 30.0 mg/g [facility] Comment on above: 30-300 mg/g indicate s an increased risk for diabetic nephropathy. Greater than 300 mg/g is consistent with clinical nephropathy. (Am. J. Kidney Disease 1995, 25:107) FASTING. JKW [facility] Neutrophils [#/volume] in Bl ood by Automated countOrdered By: Phani Ambrocio on 11-16-2023 Neutrophils (Bld) [#/Vol] 3.8 10*3/uL Normal 1.8-7.7 [facility] Comment on above: Order Comment: FASTI NG. JKW Performed By: #### C BCNO, BMP, MG #### [facility] [address] No Panel InformationOrdered By: Phani Ambrocio on 11-16-2023 Estimated GFR (CKD-EPI) > 60.0 mL/Min [facility] Creatinine Clearance (Chem N/A [facility] Nucleated erythrocytes [Pres ence] in Blood by Automated countOrdered By: Phani Ambrocio on 11-16-2023 Nucleated RBC Auto Ql (Bld) 0.0 /100{WBC} 0-0.5 [facility] Platelet mean volume [Entiti c volume] in Blood by Automated countOrdered By: Phani Ambrocio on 11-16-2023 Platelet mean volume (Bld) [Entitic vol] 9.2 fL Normal 6.6-10.1 [facility] Comment on above: Order Comment: FASTI ODALYS. JKW Performed By: #### C BCNO, BMP, MG #### [facility] [address] [place] [address] Platelets [#/volume] in Bloo d by Automated countOrdered By: Phani Ambrocio on 11-16-2023 Platelets (Bld) [#/Vol] 174 10*3/uL Normal 150-450 [facility] Comment on above: Order Comment: FASTI NG. JKW Performed By: #### C BCNO, BMP, MG #### [address] Potassium [Moles/volume] in Serum or PlasmaOrdered By: Phani Ambrocio on 11-16-2023 Potassium [Moles/Vol] 4.9 mmol/L Normal 3.5-5.1 [facility] Comment on above: Order Comment: FASTI NG. JKW Performed By: #### C BCNO, BMP, MG #### [facility] [address] [place] [address] Protein [Mass/volume] in Ser um or PlasmaOrdered By: Phani Ambrocio on 11-16-2023 Protein [Mass/Vol] 6.3 g/dL Low 6.4-8.9 [facility] Comment on above: Order Comment: FASTI NG. JKW Performed By: #### C BCNO, BMP, MG #### [address] Serum globulin measurement b y calculation (mass/volume)Ordered By: Phani Ambrocio on 11-16-2023 Globulin (S) [Mass/Vol] 2.2 g/dL Normal F [facility] Comment on above: Order Comment: FASTI NG. JKW Performed By: #### C BCNO, BMP, MG #### [facility] [address] [place] [address] Serum or plasma albumin/glob ulin mass ratioOrdered By: Phani Ambrocio on 11-16-2023 Albumin/Globulin [Mass ratio] 1.9 {ratio} Normal [facility] Comment on above: Order Comment: ISI MORROW. JKW Performed By: #### C BCNO, BMP, MG #### [address] Serum or plasma anion gap de terminationOrdered By: Phani Ambrocio on 11-16-2023 Anion gap [Moles/Vol] 11.9 mmol/L Normal 6.0-15.0 [facility] Comment on above: Order Comment: ISI NG. JKW Performed By: #### C BCNO, BMP, MG #### [address] Serum or plasma high density lipoprotein (HDL) cholesterol measurementOrdered By: Phani Ambrocio on 11-16-2023 Cholesterol in HDL [Mass/Vol] 51 mg/dL Normal 23-92 [facility] Comment on above: HDL CHOL ATP-III CLA SSIFICATION Cardiovascular RiskHDL > or equal to 60 mg/dL LOWHDL < 40 mg/dL HIGH Order Comment: ISI MORROW. JKW Result Comment: HDL CHOL ATP-III CLASSIFICATION Cardiovascular Risk HDL > or equal to 60 mg/dL LOW HDL < 40 mg/dL HIGH Performed By: #### C BCNO, BMP, MG #### [address] Serum or plasma total choles terol/high density lipoprotein (HDL) cholesterol mass ratOrdered By: Phani Ambrocio on 11-16-2023 Cholesterol.total/Janeen sterol in HDL [Mass ratio] 2.3 {ratio} Normal <5.0 [facility] Comment on above: Order Comment: NEVAEHI NG. JKW Performed By: #### C BCNO, BMP, MG #### [address] Sodium [Moles/volume] in Ser um or PlasmaOrdered By: Phani Ambrocio on 11-16-2023 Sodium [Moles/Vol] 142 mmol/L Normal 136-145 [facility] Comment on above: Order Comment: SII PRESCOTT Performed By: #### C FRANNIE BHATTI, MG #### [facility] [address] Thyroxine (T4) free [Mass/vo lume] in Serum or PlasmaOrdered By: Phani Ambrocio on 11-16-2023 Free T4 [Mass/Vol] 0.68 ng/dL Normal 0.61-1.12 [facility] Comment on above: Order Comment: ISI PRESCOTT Result Comment: PERF ORMED BY: [address] [place] [address] PATHOLOGIST PRESCHOOL DIRECTOR CECILIA CARBONE M.D. Performed By: #### C FRANNIE BHATTI, MG #### [address] Triglyceride [Mass/volume] i n Serum or PlasmaOrdered By: Phani Ambrocio on 11-16-2023 Triglyceride [Mass/Vol] 70 mg/dL 0-149 [facility] Comment on above: TRIG ATP III CLASSIF ICATIONTRIG less than 150 mg/dL NormalTRIG 150-199 mg/dL Borderline highTRIG 200-500 mg/dL High TRIG greater than 500 mg/dL Very highStandard traceable to the Center for Disease Conrtrol and Prevention (CDC) test method. Urea nitrogen [Mass/volume] in Serum or PlasmaOrdered By: Phani Ambrocio on 11-16-2023 Urea nitrogen [Mass/Vol] 20 mg/dL Normal 7-25 [facility] Comment on above: Order Comment: ISI PRESCOTT Performed By: #### C MAGY, BMP, MG #### [facility] [address] Urine microalbumin/creatinin e mass ratioOrdered By: Phani Ambrocio on 11-16-2023 Albumin/Creatinine DL <= 20 mg/L (U) [Mass ratio] 18.2 mg/g 0.0-30.0 [facility] Comment on above: 30-300 mg/g indicate s an increased risk for diabetic nephropathy. Greater than 300 mg/g is consistent with clinical nephropathy. (Am. J. Kidney Disease 1995, 25:107) A1C with Estimated Average G nichol 08-25-2023 Glucose [Mass/Vol] 131 mg/dL Normal [facility] Comment on above: Result Comment: PERF ORMED BY: [place] [address] PATHOLOGIST PRESCHOOL DIRECTOR CECILIA CARBONE M.D. Performed By: #### C BCNO, BMP, MG #### [address] Alanine aminotransferase [En zymatic activity/volume] in Serum or PlasmaOrdered By: Phani Ambrocio on 08-25-2023 ALT [Catalytic activity/Vol] 10 U/L Normal 7-52 [facility] Comment on above: Performed By: #### C BCNO, BMP, MG #### [place] [address] [place] Albumin [Mass/volume] in Ser um or Plasma by Bromocresol green (BCG) dye binding methoOrdered By: Phani Ambrocio on 08-25-2023 Albumin BCG dye [Mass/Vol] 4.2 g/dL 3.5-5.7 [facility] Alkaline phosphatase [Enzyma tic activity/volume] in Serum or PlasmaOrdered By: Phani Ambrocio on 08-25-2023 ALP [Catalytic activity/Vol] 92 U/L Normal 34-104 [facility] Comment on above: Performed By: #### C BCNO, BMP, MG #### [address] Aspartate aminotransferase [ Enzymatic activity/volume] in Serum or PlasmaOrdered By: Phani Ambrocio on 08-25-2023 AST [Catalytic activity/Vol] 14 U/L Normal 13-39 [facility] Comment on above: Performed By: #### C BCNO, BMP, MG #### [place] [address] [place] Automated basophil %Ordered By: Phani Ambrocio on 08-25-2023 Basophils/100 WBC (Bld) 0.3 % Normal . [facility] Comment on above: Performed By: #### C BCMARCI BMP, MG #### [address] Automated basophil countOrde red By: Phani Ambrocio on 08-25-2023 Basophils (Bld) [#/Vol] 0.0 10*3/uL Normal 0.0-0.2 [facility] Comment on above: Result Comment: PERF ORMED BY: [place] [address] PATHOLOGIST PRESCHOOL DIRECTOR CECILIA CARBONE M.D. Performed By: #### C BCMARCI BMP, MG #### [address] Automated blood monocyte cou ntOrdered By: Phani Ambrocio on 08-25-2023 Monocytes (Bld) [#/Vol] 0.6 10*3/uL Normal 0.0-0.8 [facility] Comment on above: Performed By: #### C BCMARCI BMP, MG #### [address] Automated eosinophil %Ordere d By: Phani Ambrocio on 08-25-2023 Eosinophils/100 WBC (Bld) 1.2 % Normal . [facility] Comment on above: Performed By: #### C BCMARCI BMP, MG #### [address] Automated eosinophil countOr dered By: Phani Ambrocio on 08-25-2023 Eosinophils (Bld) [#/Vol] 0.1 10*3/uL Normal 0.0-0.45 [facility] Comment on above: Performed By: #### C BCNO, BMP, MG #### [address] Automated monocyte %Ordered By: Phani Ambrocio on 08-25-2023 Monocytes/100 WBC (Bld) 9.9 % Normal . [facility] Comment on above: Performed By: #### C BCNO, BMP, MG #### [facility] [address] Automated neutrophil %Ordere d By: Phani Ambrocio on 08-25-2023 Neutrophils/100 WBC (Bld) 64.6 % Normal . [facility] Comment on above: Performed By: #### C BCNO, BMP, MG #### [facility] [address] Bilirubin.total [Mass/volume ] in Serum or PlasmaOrdered By: Phani Ambrocio on 08-25-2023 Bilirubin [Mass/Vol] 1.4 mg/dL High 0.3-1.0 [facility] Comment on above: Samples from patient s [...] By: #### C BCNO, BMP, MG #### [address] Calcium [Mass/volume] in Ser um or PlasmaOrdered By: Phani Ambrocio on 08-25-2023 Calcium [Mass/Vol] 9.0 mg/dL Normal 8.6-10.3 [facility] Comment on above: Performed By: #### C BCNO, BMP, MG #### [address] Carbon dioxide, total [Moles /volume] in Serum or PlasmaOrdered By: Phani Ambrocio on 08-25-2023 CO2 [Moles/Vol] 26.9 mmol/L Normal 21.0-31.0 [facility] Comment on above: Performed By: #### C BCNO, BMP, MG #### [address] [place] [address] [place] Chloride [Moles/volume] in S grady or PlasmaOrdered By: Phani Ambrocio on 08-25-2023 Chloride [Moles/Vol] 106 mmol/L Normal 98-107 [facility] Comment on above: Performed By: #### C BCNO, BMP, MG #### [facility] [address] Cholesterol [Mass/volume] in Serum or PlasmaOrdered By: Phani Ambrocio on 08-25-2023 Cholesterol [Mass/Vol] 106 mg/dL Low 140-200 [facility] Comment on above: Chol less than 200 m g/dl low riskChol 201-239 mg/dl borderline riskChol 240 mg/dl and greater high risk Result Comment: Chol less than 200 mg/dl low risk Chol 201-239 mg/dl borderline risk Chol 240 mg/dl and greater high risk Performed By: #### C BCNO, BMP, MG #### [facility] [address] Cholesterol in LDL Calc [Mas s/Vol]Ordered By: Phani Ambrocio on 08-25-2023 Cholesterol in LDL [Mass/Vol] 46 mg/dL 0-100 [facility] Comment on above: LDL ATP III CLASSIFI CATIONLDL less than 100 mg/dL OptimalLDL 100-129 mg/dL Near or above optimalLDL 130-159 mg/dL Borderline highLDL 160-189 mg/dL HighLDL greater than 189 mg/dL Very high Cholesterol in VLDL Calc [Ma ss/Vol]Ordered By: Phani Ambrocio on 08-25-2023 Cholesterol in VLDL [Mass/Vol] 11 mg/dL [facility] Complete Blood Count Auto Di ffon 08-25-2023 Mean Corpuscular HGB Conc 33.5 g/dL Normal 32.5-35.6 [facility] Comment on above: Performed By: #### C BCNO, BMP, MG #### [facility] [address] NRBC% 0.0 /100{WBC} Normal 0-0.5 [facility] Comment on above: Performed By: #### C BCNO, BMP, MG #### [facility] [address] Comprehensive Metabolic Pane stephanie 08-25-2023 Albumin [Mass/Vol] 4.2 g/dL Normal 3.5-5.7 [facility] Comment on above: Performed By: #### C BCNO, BMP, MG #### [address] GFR/1.73 sq M.predicted MDRD (S/P/Bld) [Vol rate/Area] mL/min/{1.73_m2} Normal [facility] Comment on above: Performed By: #### C BCNO, BMP, MG #### [address] Creatinine [Mass/volume] in Serum or PlasmaOrdered By: Phani Ambrocio on 08-25-2023 Creatinine [Mass/Vol] 0.98 mg/dL Normal 0.70-1.30 [facility] Comment on above: Performed By: #### C BCNO, BMP, MG #### [address] Erythrocyte distribution wid th [Ratio] by Automated countOrdered By: Phani Ambrocio on 08-25-2023 Erythrocyte distribution width (RBC) [Ratio] 14.5 % Normal 12.0-14.8 [facility] Comment on above: Performed By: #### C BCNO, BMP, MG #### [address] Erythrocytes [#/volume] in B lood by Automated countOrdered By: Phani Ambrocio on 08-25-2023 RBC (Bld) [#/Vol] 4.04 10*6/uL Normal 3.90-5.60 [facility] Comment on above: Performed By: #### C BCNO, BMP, MG #### [address] Glucose [Mass/volume] in Ser um or PlasmaOrdered By: Phani Ambrocio on 08-25-2023 Glucose [Mass/Vol] 109 mg/dL High 70-100 [facility] Comment on above: ADA recommended refe rence rangeRandom Glucose Reference Range is dependent on time and content of last meal. Glucose of more than 200 mg/dL in a nonstressed, ambulatory subject supports the diagnosis of Diabetes Mellitus. Result Comment: [place] om Glucose Reference Range is dependent on time and content of last meal. Glucose of more than 200 mg/dL in a nonstressed, ambulatory subject supports the diagnosis of Diabetes Mellitus. ADA recommended reference range Performed By: #### C BCNO, BMP, MG #### [facility] [address] Glucose mean value [Mass/vol ume] in Blood Estimated from glycated hemoglobinOrdered By: Phani Ambrocio on 08-25-2023 Average glucose Estimated from glycated hemoglobin (Bld) [Mass/Vol] 131 mg/dL [facility] Hematocrit [Volume Fraction] of Blood by Automated countOrdered By: Phani Ambrocio on 08-25-2023 Hematocrit (Bld) [Volume fraction] 37.7 % Low 38.8-50.0 [facility] Comment on above: Performed By: #### C BCNO, BMP, MG #### [address] [address] Hemoglobin A1c percentageOrd ered By: Phani Ambrocio on 08-25-2023 HbA1c (Bld) [Mass fraction] 6.2 % High 4.3-5.6 [facility] Comment on above: Increased risk for d iabetes: 5.7 - 6.4diabetes: >6.4glycemic control for adults with diabetes: <7.0 Result Comment: Incr eased risk for diabetes: 5.7 - 6.4 diabetes: >6.4 glycemic control for adults with diabetes: <7.0 Performed By: #### C BCNO, BMP, MG #### [address] Hemoglobin [Mass/volume] in BloodOrdered By: Phani Ambrocio on 08-25-2023 Hemoglobin (Bld) [Mass/Vol] 12.6 g/dL Low 13.0-17.0 [facility] Comment on above: Performed By: #### C BCNO, BMP, MG #### [facility] [address] Leukocytes [#/volume] correc marimar for nucleated erythrocytes in Blood by Automated counOrdered By: Phani Ambrocio on 08-25-2023 WBC corrected for nucl RBC Auto (Bld) [#/Vol] 6.5 10*3/uL 4.1-10.5 [facility] Leukocytes [#/volume] in Blo od by Automated countOrdered By: Phani Ambrocio on 08-25-2023 WBC (Bld) [#/Vol] 6.5 10*3/uL Normal 4.1-10.5 [facility] Comment on above: Performed By: #### C BCNO, BMP, MG #### [address] Lipid Panelon 08-25-2023 LDL Cholesterol,Calculated 46 mg/dL Normal 0-100 [facility] Comment on above: Result Comment: LDL ATP III CLASSIFICATION LDL less than 100 mg/dL Optimal LDL 100-129 mg/dL Near or above optimal LDL 130-159 mg/dL Borderline high LDL 160-189 mg/dL High LDL greater than 189 mg/dL Very high Performed By: #### C BCNO, BMP, MG #### [address] Triglyceride w/Reflex 59 mg/dL Normal 0-149 [facility] Comment on above: Result Comment: TRIG ATP III CLASSIFICATION TRIG less than 150 mg/dL Normal TRIG 150-199 mg/dL Borderline high TRIG 200-500 mg/dL High TRIG greater than 500 mg/dL Very high Standard traceable to the Center for Disease Conrtrol and Prevention (CDC) test method. Performed By: #### C BCNO, BMP, MG #### [facility] [address] VLDL CHOLESTEROL 11 mg/dL Normal [facility] Comment on above: Performed By: #### C BCNO, BMP, MG #### [facility] [address] Lymphocytes [#/volume] in Bl ood by Automated countOrdered By: Phani Ambrocio on 08-25-2023 Lymphocytes (Bld) [#/Vol] 1.6 10*3/uL Normal 1.00-4.8 [facility] Comment on above: Performed By: #### C BCNO, BMP, MG #### [address] Lymphocytes/100 leukocytes i n Blood by Automated countOrdered By: Phani Ambrocio on 08-25-2023 Lymphocytes/100 WBC (Bld) 24.0 % Normal . [facility] Comment on above: Performed By: #### C BCNO, BMP, MG #### [address] MCH [Entitic mass] by Automa marimar countOrdered By: Phani Ambrocio on 08-25-2023 MCH (RBC) [Entitic mass] 31.3 pg Normal 27.5-35.2 [facility] Comment on above: Performed By: #### C BCMARCI, BMP, MG #### [address] MCHC Auto (RBC) [Mass/Vol]Or dered By: Phani Ambrocio on 08-25-2023 MCHC (RBC) [Mass/Vol] 33.5 g/dL 32.5-35.6 [facility] MCV [Entitic volume] by Auto mated countOrdered By: Phani Ambrocio on 08-25-2023 MCV (RBC) [Entitic vol] 93.4 fL Normal 83.5-101 F [facility] Comment on above: Performed By: #### C BCNO, BMP, MG #### [address] Neutrophils [#/volume] in Bl ood by Automated countOrdered By: Phani Ambrocio on 08-25-2023 Neutrophils (Bld) [#/Vol] 4.2 10*3/uL Normal 1.8-7.7 [facility] Comment on above: Performed By: #### C BCNO, BMP, MG #### [address] No Panel InformationOrdered By: Phani Ambrocio on 08-25-2023 Estimated GFR (CKD-EPI) > 60.0 mL/Min [facility] Creatinine Clearance (Chem N/A [facility] Nucleated erythrocytes [Pres ence] in Blood by Automated countOrdered By: Phani Ambrocio on 08-25-2023 Nucleated RBC Auto Ql (Bld) 0.0 /100{WBC} 0-0.5 [facility] Platelet mean volume [Entiti c volume] in Blood by Automated countOrdered By: Phani Ambrocio on 08-25-2023 Platelet mean volume (Bld) [Entitic vol] 9.9 fL Normal 6.6-10.1 [facility] Comment on above: Performed By: #### C BCNO, BMP, MG #### [facility] [address] Platelets [#/volume] in Bloo d by Automated countOrdered By: Phani Ambrocio on 08-25-2023 Platelets (Bld) [#/Vol] 173 10*3/uL Normal 150-450 [facility] Comment on above: Performed By: #### C BCNO, BMP, MG #### [facility] [address] [place] [address] [place] Potassium [Moles/volume] in Serum or PlasmaOrdered By: Phani Ambrocio on 08-25-2023 Potassium [Moles/Vol] 4.4 mmol/L Normal 3.5-5.1 [facility] Comment on above: Performed By: #### C BCNO, BMP, MG #### [facility] [address] [place] [address] [place] Protein [Mass/volume] in Ser um or PlasmaOrdered By: Phani Ambrocio on 08-25-2023 Protein [Mass/Vol] 6.3 g/dL Low 6.4-8.9 [facility] Comment on above: Performed By: #### C BCNO, BMP, MG #### [address] Serum globulin measurement b y calculation (mass/volume)Ordered By: Phani Ambrocio on 08-25-2023 Globulin (S) [Mass/Vol] 2.1 g/dL Normal [facility] Comment on above: Performed By: #### C BCMARCI, BMP, MG #### [facility] [address] [place] [address] Serum or plasma albumin/glob ulin mass ratioOrdered By: Phani Ambrocio on 08-25-2023 Albumin/Globulin [Mass ratio] 2.0 {ratio} Normal [facility] Comment on above: Performed By: #### C BCNO, BMP, MG #### [address] Serum or plasma anion gap de terminationOrdered By: Phani Ambrocio on 08-25-2023 Anion gap [Moles/Vol] 11.5 mmol/L Normal 6.0-15.0 [facility] Comment on above: Performed By: #### C BCMARCI, BMP, MG #### [address] Serum or plasma high density lipoprotein (HDL) cholesterol measurementOrdered By: Phani Ambrocio on 08-25-2023 Cholesterol in HDL [Mass/Vol] 48 mg/dL Normal 23-92 [facility] Comment on above: HDL CHOL ATP-III CLA SSIFICATION Cardiovascular RiskHDL > or equal to 60 mg/dL LOWHDL < 40 mg/dL HIGH Result Comment: HDL CHOL ATP-III CLASSIFICATION Cardiovascular Risk HDL > or equal to 60 mg/dL LOW HDL < 40 mg/dL HIGH Performed By: #### C BCMARCI, BMP, MG #### [address] Serum or plasma total choles terol/high density lipoprotein (HDL) cholesterol mass ratOrdered By: Phani Ambrocio on 08-25-2023 Cholesterol.total/Janeen sterol in HDL [Mass ratio] 2.2 {ratio} Normal <5.0 [facility] Comment on above: Performed By: #### C BCNO, BMP, MG #### [address] Sodium [Moles/volume] in Ser um or PlasmaOrdered By: Phani Ambrocio on 06-13-2024 Sodium [Moles/Vol] 140 mmol/L Normal 136-145 [facility] Comment on above: Performed By: #### C FRANNIE BHATTI MG #### [address] Thyrotropin [Units/volume] i n Serum or PlasmaOrdered By: Phani Ambrocio on 08-25-2023 TSH Qn 1.98 m[IU]/L Normal 0.45-5.33 [facility] Comment on above: Result Comment: PERF ORMED BY: [place] [address] PATHOLOGIST PRESCHOOL DIRECTOR CECILIA CARBONE M.D. Performed By: #### C FRANNIE BHATTI MG #### [address] Triglyceride [Mass/volume] i n Serum or PlasmaOrdered By: Phani Ambrocio on 08-25-2023 Triglyceride [Mass/Vol] 59 mg/dL 0-149 [facility] Comment on above: TRIG ATP III CLASSIF ICATIONTRIG less than 150 mg/dL NormalTRIG 150-199 mg/dL Borderline highTRIG 200-500 mg/dL High TRIG greater than 500 mg/dL Very highStandard traceable to the Center for Disease Conrtrol and Prevention (CDC) test method. Urea nitrogen [Mass/volume] in Serum or PlasmaOrdered By: Phani Ambrocio on 08-25-2023 Urea nitrogen [Mass/Vol] 18 mg/dL Normal 7-25 [facility] Comment on above: Performed By: #### C FRANNIE BHATTI MG #### [address] Alanine aminotransferase [En zymatic activity/volume] in Serum or PlasmaOrdered By: FLAVIO LYNCH on 02-21-2023 ALT [Catalytic activity/Vol] 12 U/L 7-52 [facility] Albumin [Mass/volume] in Ser um or Plasma by Bromocresol green (BCG) dye binding methoOrdered By: FLAVIO LYNCH on 02-21-2023 Albumin BCG dye [Mass/Vol] 4.1 g/dL 3.5-5.7 [facility] Alkaline phosphatase [Enzyma tic activity/volume] in Serum or PlasmaOrdered By: FLAVIO LYNCH on 02-21-2023 ALP [Catalytic activity/Vol] 99 U/L 34-104 [facility] Aspartate aminotransferase [ Enzymatic activity/volume] in Serum or PlasmaOrdered By: FLAVIO LYNCH on 02-21-2023 AST [Catalytic activity/Vol] 14 U/L 13-39 [facility] Bilirubin.total [Mass/volume ] in Serum or PlasmaOrdered By: FLAVIO LYNCH on 02-21-2023 Bilirubin [Mass/Vol] 1.6 mg/dL 0.3-1.0 [facility] Comment on above: Samples from patient s who have taken Naproxen have shown spurious elevation in Total Bilirubin levels. A metabolite of Naproxen, O-desmethylnaproxen, has been shown to interfere with the Champ-Santos method for measuring Total Bilirubin. Calcium [Mass/volume] in Ser um or PlasmaOrdered By: FLAVIO LYNCH on 02-21-2023 Calcium [Mass/Vol] 9.3 mg/dL 8.6-10.3 [facility] Carbon dioxide, total [Moles /volume] in Serum or PlasmaOrdered By: FLAVIO LYNCH on 02-21-2023 CO2 [Moles/Vol] 28.2 mmol/L 21.0-31.0 [facility] Chloride [Moles/volume] in S grady or PlasmaOrdered By: FLAVIO LYNCH on 02-21-2023 Chloride [Moles/Vol] 105 mmol/L 98-107 [facility] Cholesterol [Mass/volume] in Serum or PlasmaOrdered By: FLAVIO LYNCH on 02-21-2023 Cholesterol [Mass/Vol] 106 mg/dL 140-200 [facility] Comment on above: Chol less than 200 m g/dl low riskChol 201-239 mg/dl borderline riskChol 240 mg/dl and greater high risk Cholesterol in LDL Calc [Mas s/Vol]Ordered By: FLAVIO LYNCH on 02-21-2023 Cholesterol in LDL [Mass/Vol] 40 mg/dL 0-100 [facility] Comment on above: LDL ATP III CLASSIFI CATIONLDL less than 100 mg/dL OptimalLDL 100-129 mg/dL Near or above optimalLDL 130-159 mg/dL Borderline highLDL 160-189 mg/dL HighLDL greater than 189 mg/dL Very high Cholesterol in VLDL Calc [Ma ss/Vol]Ordered By: FLAVIO LYNCH on 02-21-2023 Cholesterol in VLDL [Mass/Vol] 20 mg/dL [facility] Creatinine [Mass/volume] in Serum or PlasmaOrdered By: FLAVIO LYNCH on 02-21-2023 Creatinine [Mass/Vol] 0.89 mg/dL 0.70-1.30 [facility] Globulin Calc (S) [Mass/Vol] Ordered By: FLAVIO LYNCH on 02-21-2023 Globulin (S) [Mass/Vol] 2.2 g/dL F [facility] Glucose [Mass/volume] in Ser um or PlasmaOrdered By: FLAVIO LYNCH on 02-21-2023 Glucose [Mass/Vol] 137 mg/dL 70-100 [facility] Comment on above: ADA recommended refe rence rangeRandom Glucose Reference Range is dependent on time and content of last meal. Glucose of more than 200 mg/dL in a nonstressed, ambulatory subject supports the diagnosis of Diabetes Mellitus. No Panel InformationOrdered By: FLAVIO LYNCH on 02-21-2023 Estimated GFR (CKD-EPI) > 60.0 mL/Min [facility] Creatinine Clearance (Chem N/A [facility] Potassium [Moles/volume] in Serum or PlasmaOrdered By: FLAVIO LYNCH on 02-21-2023 Potassium [Moles/Vol] 4.3 mmol/L 3.5-5.1 [facility] Protein [Mass/volume] in Ser um or PlasmaOrdered By: FLAVIO LYNCH on 02-21-2023 Protein [Mass/Vol] 6.3 g/dL 6.4-8.9 [facility] Serum or plasma albumin/glob ulin mass ratioOrdered By: FLAVIO LYNCH on 02-21-2023 Albumin/Globulin [Mass ratio] 1.9 {ratio} [facility] Serum or plasma anion gap de terminationOrdered By: FLAVIO LYNCH on 02-21-2023 Anion gap [Moles/Vol] 12.1 mmol/L 6.0-15.0 [facility] Serum or plasma high density lipoprotein (HDL) cholesterol measurementOrdered By: FLAVIO LYNCH on 02-21-2023 Cholesterol in HDL [Mass/Vol] 45 mg/dL 23-92 [facility] Comment on above: HDL CHOL ATP-III CLA SSIFICATION Cardiovascular RiskHDL > or equal to 60 mg/dL LOWHDL < 40 mg/dL HIGH Serum or plasma total choles terol/high density lipoprotein (HDL) cholesterol mass ratOrdered By: FLAVIO LYNCH on 02-21-2023 Cholesterol.total/Janeen sterol in HDL [Mass ratio] 2.4 {ratio} <5.0 [facility] Sodium [Moles/volume] in Ser um or PlasmaOrdered By: FLAVIO LYNCH on 02-21-2023 Sodium [Moles/Vol] 141 mmol/L 136-145 [facility] Thyrotropin [Units/volume] i n Serum or PlasmaOrdered By: FLAVIO LYNCH on 02-21-2023 TSH Qn 1.90 m[IU]/L 0.45-5.33 [facility] Triglyceride [Mass/volume] i n Serum or PlasmaOrdered By: FLVAIO LYNCH on 02-21-2023 Triglyceride [Mass/Vol] 103 mg/dL 0-149 [facility] Comment on above: TRIG ATP III CLASSIF ICATIONTRIG less than 150 mg/dL NormalTRIG 150-199 mg/dL Borderline highTRIG 200-500 mg/dL High TRIG greater than 500 mg/dL Very highStandard traceable to the Center for Disease Conrtrol and Prevention (CDC) test method. Urea nitrogen [Mass/volume] in Serum or PlasmaOrdered By: FLAVIO LYNCH on 02-21-2023 Urea nitrogen [Mass/Vol] 13 mg/dL 7- [facility] Office Visit (Cardiology)on 12-01-2022 Follow-up visit [...] in adult Healthy Weight Tips; Status:Complete; Done: [id number] Some eating tips that can help you lose weight.; Status:Complete; Done: [id number] SocHx: Former smoker Tobacco Use Screening; Status:Complete; Done: [id number] Patient Instructions Please bring all medicines, vitamins, [...] up in 6 months PCP to forward [facility] to our office for review. Chief Complaint [...] Aricept managed by PCP. Kristofer Ortega MD, [facility] Surgical History Problems History of Cataract [...] negative for complaint. Vitals Vital Signs Recorded: [id number] 11:22AM Heart Rate60, L Radial Qlobuyjv935, LUE, Sitting Lkslqeepf75, LUE, Sitting Height5 ft 6.5 in Oscckr653 lb BMI Bidhcxodzo76.96 kg/m2 BSA Calculated2.02 Tobacco Useb) No Falls [...] and n (more content not included)... Normal [employer] Tobacco Screening.on 023 Fall risk assessment b) One or more fall s in the last year [facility] [address] DO Work Phone: Tobacco use status CPHS b) No M [facility] [address] DO Work Phone: VASC LAB Carotid Artery Dupl ex Ultrasounon 05-26-2022 VAS LAB [facility] Ar[facility], [place] [address] Vascular Lab Report Carotid Artery Duplex Ultrasound Patient Name: DES Thompson Physician: [id number] Kristofer Ortega MD, [facility] Study Date: 05/26/2022 Referring KRISTOFER ORTEGA Physician: MRN/PID: [id number] PCP: Harsh Ambrocio MD Accession/Order#: [id number] CC Report to: Date of : 1940 Technologist: Laura Berger RDCS [facility] Gender: M Technologist 2: Admission Status: Outpatient Location Performed: [facility] Diagnosis/ICD: L29-Eykioppip and giddiness Indication: CAD, PTCA-2014, Obesity, MICHAEL, Former Smoker, Diabetes, Hyperlipidemia Procedure/CPT: 56493 Cerebrovascular Carotid Duplex scan complete-[id number] CONCLUSIONS: Right Carotid: Findings are consistent with [...] cm/s Right Left ICA/CCA Ratio 0.8 1.2 [id number] Kristofer Ortega MD, FACC Final Normal [facility] Office Visit (Cardiology)on 05-19-2022 Follow-up visit Diagnoses/Problems [...] matter with his PCP. Kristofer Ortega MD, [facility] Surgical History Problems History of Cataract [...] Recorded: 19May2022 10:42AM Heart Rate56, R Radial Lhdpapzj476, LUE, Sitting Uylymplyl14, LUE, Sitting Height5 ft 6.5 in Sikjks996 lb BMI Qwhmhlrdtz95.02 kg/m2 BSA Calculated2.07 Tobacco Useb) No PHQ-2 #1. Over the last 2 weeks have you felt down, depressed or hopeless? (If yes, an (more content not included)... Normal [employer] Tobacco Screening.on 023 Adult depression screening assessment No [facility] [address] [place] Work Phone: Fall risk assessment b) One or more fall s in the last year [facility] [address] [place] Work Phone: Tobacco use status CPHS b) No M [facility] [address] DO Work Phone: Cholesterol [Mass/volume] in Serum or PlasmaOrdered By: Phani Ambrocio on 11-17-2021 Cholesterol [Mass/Vol] 124 mg/dL 140-200 [facility] Comment on above: Chol less than 200 m g/dl low risk Chol 201-239 mg/dl borderline risk Chol 240 mg/dl and greater high risk Cholesterol in LDL Calc [Mas s/Vol]Ordered By: Phani Ambrocio on 11-17-2021 Cholesterol in LDL [Mass/Vol] 73 mg/dL 0-100 [facility] Comment on above: LDL ATP III CLASSIFI CATION LDL less than 100 mg/dL Optimal LDL 100-129 mg/dL Near or above optimal LDL 130-159 mg/dL Borderline high LDL 160-189 mg/dL High LDL greater than 189 mg/dL Very high Cholesterol in VLDL Calc [Ma ss/Vol]Ordered By: Phani Ambrocio on 11-17-2021 Cholesterol in VLDL [Mass/Vol] 16 mg/dL [facility] Creatinine and Glomerular fi ltration rate.predicted panel (S/P/Bld)Ordered By: Phani Ambrocio on 11-17-2021 Creatinine [Mass/Vol] 1.03 mg/dL 0.64-1.27 [facility] Estimated glomerular filtrat ion rate (GFR) non- AmericanOrdered By: Phani Ambrocio on 11-17-2021 GFR/1.73 sq M.predicted among non-blacks MDRD (S/P/Bld) [Vol rate/Area] > 60 mL/Min [facility] No Panel InformationOrdered By: Phani Ambrocio on 11-17-2021 Estimated GFR () > 60 mL/Min [facility] Comment on above: GFR estimated refere nce range: According to KDOQI guidelines, <60 ml/min/1.73m2 is sufficient to diagnose a patient with chronic kidney disease. Pharmacy Creatinine Clearance (Chem N/A [facility] Prostate Specific Antigen Screen 1.530 ng/mL 0.000-4.000 [facility] Serum or plasma anion gap de terminationOrdered By: Phani Ambrocio on 11-17-2021 Anion gap [Moles/Vol] 14.5 mmol/L 6.0-15.0 [facility] Serum or plasma calcium blanca urement (mass/volume)Ordered By: Phani Ambrocio on 11-17-2021 Calcium [Mass/Vol] 9.3 mg/dL 8.2-10.2 [facility] Serum or plasma chloride junior surement (moles/volume)Ordered By: Phani Ambrocio on 11-17-2021 Chloride [Moles/Vol] 102 mmol/L 95-114 [facility] Serum or plasma glucose blanca urement (mass/volume)Ordered By: Phani Ambrocio on 11-17-2021 Glucose [Mass/Vol] 129 mg/dL 70-100 [facility] Comment on above: ADA recommended refe rence range Random Glucose Reference Range is dependent on time and content of last meal. Glucose of more than 200 mg/dL in a nonstressed, ambulatory subject supports the diagnosis of Diabetes Mellitus. Serum or plasma high density lipoprotein (HDL) cholesterol measurementOrdered By: Phani Ambrocio on 11-17-2021 Cholesterol in HDL [Mass/Vol] 35 mg/dL 29-71 [facility] Comment on above: HDL CHOL ATP-III CLA SSIFICATION Cardiovascular Risk HDL > or equal to 60 mg/dL LOW HDL < 40 mg/dL HIGH Serum or plasma potassium me asurement (moles/volume)Ordered By: Phani Ambrocio on 11-17-2021 Potassium [Moles/Vol] 4.5 mmol/L 3.5-5.1 [facility] Serum or plasma sodium measu rement (moles/volume)Ordered By: Phani Ambrocio on 11-17-2021 Sodium [Moles/Vol] 135 mmol/L 136-146 [facility] Serum or plasma total carbon dioxide measurement (moles/volume)Ordered By: Phani Ambrocio on 11-17-2021 CO2 [Moles/Vol] 23.0 mmol/L 22.0-30.0 [facility] Serum or plasma total choles terol/high density lipoprotein (HDL) cholesterol mass ratOrdered By: Phani Ambrocio on 11-17-2021 Cholesterol.total/Janeen sterol in HDL [Mass ratio] 3.5 {ratio} <5.0 [facility] Serum or plasma urea nitroge n measurement (mass/volume)Ordered By: Phani Ambrocio on 11-17-2021 Urea nitrogen [Mass/Vol] 15 mg/dL 9-23 [facility] Triglyceride [Mass/volume] i n Serum or PlasmaOrdered By: Phani Ambrocio on 11-17-2021 Triglyceride [Mass/Vol] 82 mg/dL 35-149 [facility] Comment on above: TRIG ATP III CLASSIF ICATION TRIG less than 150 mg/dL Normal TRIG 150-199 mg/dL Borderline high TRIG 200-500 mg/dL High TRIG greater than 500 mg/dL Very high Standard traceable to the Center for Disease Conrtrol and Prevention (CDC) test method. Microalbumin (with Creat)on 05-21-2021 mALB 2.6 mg/dL Normal [facility] Comment on above: Result Comment: mALB reference range not established. Performed By: #### m ALBC #### [facility] [address] [place], [place] [id number] mALB/Creat Ratio 14.6 MCG/MG Normal [facility] Comment on above: Result Comment: The ADA (Diabetes Care 26:S94-S98, 2003) defines abnormalities in Albumin excretion as follows: Category Result (MCG/MG Creatinine) Normal <30 Microalbuminuria 30-299 Clinical Albuminuria > or = 300 Performed By: #### m ALBC #### [facility] [address] [place], [place] [id number] UCREA 178 mg/dL Normal 39-259 [facility] Comment on above: Performed By: #### m ALBC #### [facility] [address], [place] [id number] Complete Blood Count with Au to Diffon 05-20-2021 Basophils (Bld) [#/Vol] 0.03 10*3/uL Normal 0.00-0.20 [facility] Comment on above: Performed By: #### C BCAD, CMP, LIPD, TSH #### [facility] [address], [place] [id number] Basophils/100 WBC (Bld) 0.5 % Normal [facility] Comment on above: Performed By: #### C BCAD, CMP, LIPD, TSH #### [facility] [address], [place] [id number] Eosinophils (Bld) [#/Vol] 0.09 10*3/uL Normal 0.02-0.50 [facility] Comment on above: Performed By: #### C BCAD, CMP, LIPD, TSH #### [facility] [address] [place], [place] [id number] Eosinophils/100 WBC (Bld) 1.4 % Normal [facility] Comment on above: Performed By: #### C BCAD, CMP, LIPD, TSH #### [facility] [address], [place] [id number] Erythrocyte distribution width (RBC) [Ratio] 13.5 % Normal 11.0-15.0 [facility] Comment on above: Performed By: #### C BCAD, CMP, LIPD, TSH #### [facility] [address], [place] [id number] Hematocrit (Bld) [Volume fraction] 45.6 % Normal 38.5-50.0 [facility] Comment on above: Performed By: #### C BCAD, CMP, LIPD, TSH #### [facility] [address] [place], [place] [id number] Hemoglobin (Bld) [Mass/Vol] 14.9 g/dL Normal 13.0-17.1 [facility] Comment on above: Performed By: #### C BCAD, CMP, LIPD, TSH #### [facility] [address], [place] [id number] Lymphocytes (Bld) [#/Vol] 1.4 10*3/uL Normal 0.9-3.9 [facility] Comment on above: Performed By: #### C BCAD, CMP, LIPD, TSH #### [facility] [address], [place] [id number] Lymphocytes/100 WBC (Bld) 21.8 % Normal [facility] Comment on above: Performed By: #### C BCAD, CMP, LIPD, TSH #### [facility] [address], [place] [id number] MCH (RBC) [Entitic mass] 30.0 pg Normal 27.0-33.0 [facility] Comment on above: Performed By: #### C BCAD, CMP, LIPD, TSH #### [facility] [address], [place] [id number] MCHC (RBC) [Mass/Vol] 32.7 g/dL Normal 32.0-36.0 [facility] Comment on above: Performed By: #### C BCAD, CMP, LIPD, TSH #### [facility] [address] [place], [place] [id number] MCV (RBC) [Entitic vol] 92 fL Normal 80-100 [facility] Comment on above: Performed By: #### C BCAD, CMP, LIPD, TSH #### [facility] [address], [place] [id number] Monocytes (Bld) [#/Vol] 0.6 10*3/uL Normal 0.2-0.9 [facility] Comment on above: Performed By: #### C BCAD, CMP, LIPD, TSH #### [facility] [address], [place] [id number] Monocytes/100 WBC (Bld) 8.6 % Normal [facility] Comment on above: Performed By: #### C BCAD, CMP, LIPD, TSH #### [facility] [address] [place], [place] [id number] Neutrophils (Bld) [#/Vol] 4.4 10*3/uL Normal 1.5-7.8 [facility] Comment on above: Performed By: #### C BCAD, CMP, LIPD, TSH #### [facility] [address], [place] [id number] Neutrophils/100 WBC (Bld) 67.5 % Normal [facility] Comment on above: Performed By: #### C BCAD, CMP, LIPD, TSH #### [facility] [address] [place], [place] [id number] Platelet mean volume (Bld) [Entitic vol] 10.80 fL Normal 7.50-12.50 [facility] Specialist Comment on above: Performed By: #### C BCAD, CMP, LIPD, TSH #### [facility] [address] [place] [id number] Platelets (Bld) [#/Vol] 229 10*3/uL Normal 140-400 [facility] Specialist Comment on above: Performed By: #### C BCAD, CMP, LIPD, TSH #### [facility] [address], [place] [id number] RBC (Bld) [#/Vol] 4.96 10*6/uL Normal 4.20-5.80 [facility] Feeder Switchboard Operator Comment on above: Performed By: #### C BCAD, CMP, LIPD, TSH #### [facility] [address], [place] [id number] RDW-SD 46.1 fL Normal 37.0-50.0 [facility] Feeder Switchboard Operator Comment on above: Performed By: #### C BCAD, CMP, LIPD, TSH #### [facility] [address], [place] [id number] WBC (Bld) [#/Vol] 6.5 10*3/uL Normal 3.8-11.0 [facility] Feeder Switchboard Operator Comment on above: Performed By: #### C BCAD, CMP, LIPD, TSH #### [facility] [address], [place] [id number] Comprehensive [facility] 05-20-2021 Albumin [Mass/Vol] 4.3 g/dL Normal 3.6-5.1 [facility] Feeder Switchboard Operator Comment on above: Performed By: #### C BCAD, CMP, LIPD, TSH #### [facility] [address], [place] [id number] Albumin/Globulin [Mass ratio] 2.0 {ratio} Normal 1.0-2.5 [facility] Feeder Switchboard Operator Comment on above: Performed By: #### C BCAD, CMP, LIPD, TSH #### [facility] [address], [place] [id number] ALP [Catalytic activity/Vol] 118 U/L Normal 40-129 [facility] Comment on above: Performed By: #### C BCAD, CMP, LIPD, TSH #### [facility] [address], [place] [id number] ALT [Catalytic activity/Vol] 13 U/L Normal 9-46 [facility] Comment on above: Result Comment: 02/11 Female reference range changed. Performed By: #### C BCAD, CMP, LIPD, TSH #### [facility] [address], [place] [id number] Anion gap [Moles/Vol] 19 mmol/L Normal 12-20 [facility] Comment on above: Result Comment: Effe ctive 03/19/2019 reference range changed. Performed By: #### C BCAD, CMP, LIPD, TSH #### [facility] [address], [place] [id number] AST [Catalytic activity/Vol] 14 U/L Normal 10-40 [facility] Comment on above: Performed By: #### C BCAD, CMP, LIPD, TSH #### [facility] [address], [place] [id number] Bilirubin [Mass/Vol] 1.02 mg/dL Normal 0.30-1.20 [facility] Comment on above: Performed By: #### C BCAD, CMP, LIPD, TSH #### [facility] [address], [place] [id number] BUN/CREA 24 Ratio High 6-22 [facility] Comment on above: Performed By: #### C BCAD, CMP, LIPD, TSH #### [facility] [address], [place] [id number] Calcium [Mass/Vol] 9.1 mg/dL Normal 8.6-10.2 [facility] Comment on above: Performed By: #### C BCAD, CMP, LIPD, TSH #### [facility] [address], [place] [id number] Chloride [Moles/Vol] 107 mmol/L Normal 98-107 [facility] Comment on above: Performed By: #### C BCAD, CMP, LIPD, TSH #### [facility] [address], [place] [id number] CO2 [Moles/Vol] 21 mmol/L Normal 20-31 [facility] Comment on above: Performed By: #### C BCAD, CMP, LIPD, TSH #### [facility] [address], [place] [id number] Creatinine [Mass/Vol] 0.8 mg/dL Normal 0.7-1.4 [facility] Comment on above: Performed By: #### C BCAD, CMP, LIPD, TSH #### [facility] [address], [place] [id number] eGFRAA 112 mL/min/1.73m2 Normal >60 [facility] Specialist Comment on above: Performed By: #### C BCAD, CMP, LIPD, TSH #### [facility] [address], [place] [id number] eGFRNAA 92 mL/min/1.73m2 Normal >60 [facility] Comment on above: Performed By: #### C BCAD, CMP, LIPD, TSH #### [facility] [address], [place] [id number] Globulin (S) [Mass/Vol] 2.2 g/dL Normal 1.9-3.7 [facility] Comment on above: Performed By: #### C BCAD, CMP, LIPD, TSH #### [facility] [address], [place] [id number] Glucose [Mass/Vol] 143 mg/dL High 65-99 [facility] Comment on above: Result Comment: For FASTING Glucose --- ADA reference ranges: Normal 65-99 mg/dl Prediabetes 100-125 Diabetes >/= 126 Performed By: #### C BCAD, CMP, LIPD, TSH #### [facility] [address], [place] [id number] Potassium [Moles/Vol] 4.5 mmol/L Normal 3.5-5.5 [facility] Comment on above: Performed By: #### C BCAD, CMP, LIPD, TSH #### [facility] [address], [place] [id number] Protein [Mass/Vol] 6.5 g/dL Normal 6.1-8.1 [facility] Specialist Comment on above: Performed By: #### C BCAD, CMP, LIPD, TSH #### [facility] [address] [facility] [place] [id number] Sodium [Moles/Vol] 142 mmol/L Normal 135-146 [facility] Specialist Comment on above: Performed By: #### C BCAD, CMP, LIPD, TSH #### [facility] [address], [place] [id number] Urea nitrogen [Mass/Vol] 19 mg/dL Normal 7-25 [facility] Feeder Switchboard Operator Comment on above: Performed By: #### C BCAD, CMP, LIPD, TSH #### [facility] [address], [place] [id number] Hemoglobin A1Con 05-20-2021 EAG 148.46 Normal [facility] Specialist Comment on above: Performed By: #### A 1C #### [facility] [address], [place] [id number] HbA1c (Bld) [Mass fraction] 6.8 % High 4.0-6.0 [facility] Specialist Comment on above: Performed By: #### A 1C #### [facility] [address], [place] [id number] Lipid Panelon 05-20-2021 Cholesterol [Mass/Vol] 117 mg/dL Low 125-200 [facility] Comment on above: Result Comment: Low risk < 200mg/dL Borderline risk 201-239 mg/dl High risk > or equal to 240 Performed By: #### C BCAD, CMP, LIPD, TSH #### [facility] [address], [place] [id number] Cholesterol in HDL [Mass/Vol] 39 mg/dL Low >40 [facility] Specialist Comment on above: Result Comment: High Cardiovascular Risk HDL <40 mg/dL Low Cardiovascular Risk HDL > or equal to 60 mg/dl Performed By: #### C BCAD, CMP, LIPD, TSH #### [facility] [address] [place], [place] [id number] Cholesterol in LDL [Mass/Vol] 58 mg/dL Normal [facility] Specialist Comment on above: Result Comment: LDL ATP III CLASSIFICATION LDL less than 100 mg/dl Optimal LDL 100-129 mg/dl Near or above optimal LDL 130-159 Borderline high LDL 160-189 High LDL greater than 189 mg/dl Very High Performed By: #### C BCAD, CMP, LIPD, TSH #### [facility] [address], [place] [id number] Cholesterol in VLDL [Mass/Vol] 20 mg/dL Normal [facility] Specialist Comment on above: Performed By: #### C BCAD, CMP, LIPD, TSH #### [facility] [address], [place] [id number] Cholesterol.total/Janeen sterol in HDL [Mass ratio] 3 {ratio} Normal [facility] Comment on above: Performed By: #### C BCAD, CMP, LIPD, TSH #### [facility] [address], [place] [id number] Triglyceride [Mass/Vol] 99 mg/dL Normal 30-150 [facility] Comment on above: Result Comment: TRIG ATPIII CLASSIFICATIONS TRIG less than 150 mg/dl Normal TRIG 150-199 mg/dl Borderline High TRIG 200-500 mg/dl High TRIG greather than 500 mg/dl Very High Performed By: #### C BCAD, CMP, LIPD, TSH #### [facility] [address], [place] [id number] TSHon 05-20-2021 TSH 2.810 uIU/mL Normal 0.400-4.500 [facility] Specialist Comment on above: Performed By: #### C BCAD, CMP, LIPD, TSH #### [facility] [address], [place] [id number] Tobacco Screening.on 022 Fall risk assessment b) One or more fall s in the last year [facility] [address] DO Work Phone: Heart Rate Regular [facility] DO Work Phone: Tobacco use status [facility] b) No M [facility] [place] [address] DO Work Phone: Tobacco Screening. Yes [facility] [place] [address] DO Work Phone: ALT (SGPT)on 01-05-2018 ALT enzyme act/vol 26 U/L Normal 10-52 [facility] Healthcare Comment on above: Performed By: #### 1 [id number] ####[facility] [address] [place] [address] AST (SGOT)on 01-05-2018 AST enzyme act/vol 21 U/L Normal 13-39 [facility] Comment on above: Performed By: #### 1 [id number] ####[facility] [address] [place] [address] CBCon 01-05-2018 Erythrocyte distribution width Auto Ratio (RBC) 14.1 % Normal 12.0-15.4 [facility] Comment on above: Performed By: #### 2 [id number] ####[facility] [address] [place] [address] Hematocrit Auto Volume Fraction (Bld) 46.0 % Normal 38.4-54.9 [facility] Comment on above: Performed By: #### 2 [id number] ####[facility] [address] [place] [address] Hemoglobin mass conc (Bld) 14.7 g/dL Normal 12.8-17.7 [facility] Comment on above: Performed By: #### 2 [id number] ####[facility] [address] [place] [address] MCH Auto Entitic mass (RBC) 30.2 pg Normal 27.5-32.9 [facility] Comment on above: Performed By: #### 2 [id number] ####[facility] [address] [place] [address] MCHC Auto mass conc (RBC) 32.0 g/dL Normal 30.5-35.4 [facility] Comment on above: Performed By: #### 2 [id number] ####[facility] [address] [place] [address] MCV Auto Entitic volume (RBC) 94.5 fL Normal 83.3-98.2 [facility] Healthcare Comment on above: Performed By: #### 2 [id number] ####[facility] [address] [place] [address] NRBC Absolute 0.00 10*3/uL Normal [facility] Healthcare Comment on above: Performed By: #### 2 [id number] ####[facility] [address] [place] [address] NRBC Automated 0.0 /100{WBCs} Normal [facility] Healthcare Comment on above: Performed By: #### 2 [id number] ####[facility] [address] [place] [address] Platelet mean volume Auto Entitic volume (Bld) 10.5 fL Normal 9.9-12.1 [facility] Healthcare Comment on above: Performed By: #### 2 [id number] ####[facility] [address] [place] [address] Platelets Auto #/vol (Bld) 199 10*3/uL Normal 155-404 [facility] Healthcare Comment on above: Performed By: #### 2 [id number] ####[facility] [address] [place] [address] RBC Auto #/vol (Bld) 4.87 10*6/uL Normal 4.08-6.37 [facility] Healthcare Comment on above: Performed By: #### 2 [id number] ####[facility] [address] [place] [address] RDW SD 49.1 fL High 39.3-48.6 [facility] Healthcare Comment on above: Performed By: #### 2 [id number] ####[facility] [address] [place] [address] WBC Auto #/vol (Bld) 7.7 10*3/uL Normal 4.2-11.0 [facility] Healthcare Comment on above: Performed By: #### 2 [id number] ####[facility] [address] [place] [address] Creatinineon 01-05-2018 Creatinine mass conc 0.86 mg/dL Normal 0.50-1.30 [facility] Comment on above: Performed By: #### 1 [id number] ####[facility] [address] [place] [address] GFR/1.73 sq M.predicted MDRD vol rate/area mL/min/{1.73_m2} Normal [facility] Comment on above: Result Comment: Inte rpretation for Chronic Kidney Disease:Stages 1&2 >60 Healthy or potential kidney damage.Mild decrease of GFR.Stage 3 30-59 Moderate decrease of GFR.Stage 4 15-29 Severe decrease of GFR.Stage 5 <15 Kidney failure or on dialysis. Performed By: #### 1 [id number] ####[facility] [address] [place] [address] Electrolyte Panelon 01-06-20 18 Anion gap 3 molar conc 14 mmol/L Normal 10-20 [facility] Healthcare Comment on above: Performed By: #### 1 [id number] ####[facility] [address] [place] [address] Chloride molar conc 105 mmol/L Normal 98-107 [facility] Comment on above: Performed By: #### 1 [id number] ####[facility] [address] [place] [address] HCO3 molar conc (Bld) 24 mmol/L Normal 21-32 [facility] Comment on above: Performed By: #### 1 [id number] ####[facility] [address] [place] [address] Potassium molar conc 4.2 mmol/L Normal 3.5-5.1 [facility] Comment on above: Performed By: #### 1 [id number] ####[facility] [address] [place] [address] Sodium molar conc 139 mmol/L Normal 136-145 [facility] Comment on above: Performed By: #### 1 [id number] ####[facility] [address] [place] [address] Lipid Panelon 01-05-2018 Cholesterol in HDL mass conc 50 mg/dL Normal [facility] Comment on above: Result Comment: Norm al Mod Risk High Risk5-9 >48 42-48 <4210-14 >45 40-45 <4015-19 >38 34-38 <34Adult >39 Performed By: #### 1 [id number] ####[facility] [address] [place] [address] Cholesterol in LDL mass conc 59 mg/dL Normal <130 [facility] Comment on above: Performed By: #### 1 [id number] ####[facility] [address] [place] [address] Cholesterol in VLDL mass conc 18 mg/dL Normal <30 [facility] Comment on above: Performed By: #### 1 [id number] ####[facility] [address] [place] [address] Cholesterol mass conc 127 mg/dL Normal <200 [facility] Comment on above: Performed By: #### 1 [id number] ####[facility] [address] [place] [address] Cholesterol.total/Janeen sterol in HDL mass ratio 2.5 {ratio} Normal [facility] Healthcare Comment on above: Performed By: #### 1 [id number] ####[facility] [address] [facility] [place] [address] Triglyceride mass conc 92 mg/dL Normal <150 [facility] Comment on above: Result Comment: 150- 199 Borderline [id number] High>500 Very High Performed By: #### 1 [id number] ####[facility] [address] [place] [address] Urea Nitrogenon 01-05-2018 Urea nitrogen mass conc 18 mg/dL Normal 6-23 [facility] Comment on above: Performed By: #### 1 [id number] ####[facility] [address] [place] [address] Vital Signs Date Time Vital Sign Value Performing Clinician Facility 06-27-2024 09:57-0400 Body height 166.4 cm Soledad GUILLERMO Work Phone: [facility] 06-27-2024 09:57-0400 Body mass index (BMI) [Ratio] 31.14 kg/m2 Soledad GUILLERMO Work Phone: [facility] 06-27-2024 09:57-0400 Body weight 86.18 kg Soledad Lowe PA Work Phone: [facility] 06-27-2024 09:57-0400 Diastolic blood pressure 72 mm[Hg] Soledad Lowe PA Work Phone: [facility] 06-27-2024 09:57-0400 Systolic blood pressure 130 mm[Hg] Soledad Lowe PA Work Phone: [facility] 05-28-2024 15:33-0400 Body temperature 97.9 [degF] Phani Ambrocio DO Work Phone: [facility] 05-28-2024 15:33-0400 Diastolic blood pressure 83 mm[Hg] Phani Ambrocio DO Work Phone: [facility] 05-28-2024 15:33-0400 Heart rate 67 /min Phani Ambrocio DO Work Phone: [facility] 05-28-2024 15:33-0400 Respiratory rate 20 /min Phani Ambrocio DO Work Phone: [facility] 05-28-2024 15:33-0400 SaO2% (BldA) [Mass fraction] 95 % Phani Ambrocio DO Work Phone: [facility] 05-28-2024 15:33-0400 Systolic blood pressure 167 mm[Hg] Phani Ambrocio DO Work Phone: [facility] 05-28-2024 06:00-0400 Body weight 87.8 kg Phani Ambrocio DO Work Phone: [facility] 05-25-2024 15:20-0400 Body height 167.64 cm Phani Ambrocio DO Work Phone: [facility] 05-23-2024 17:05-0400 Body height 167.64 cm Phani Ambrocio DO Work Phone: [facility] 05-23-2024 17:05-0400 Body temperature 98.1 [degF] Phani Ambrocio DO Work Phone: [facility] 05-23-2024 17:05-0400 Body weight 88.8 kg Phani Ambrocio DO Work Phone: [facility] 05-23-2024 17:05-0400 Diastolic blood pressure 78 mm[Hg] Phani Ricci DO Work Phone: [facility] 05-23-2024 17:05-0400 Heart rate 66 /min Phani Stevensonman DO Work Phone: [facility] 05-23-2024 17:05-0400 Respiratory rate 18 /min Phani Ricci DO Work Phone: [facility] 05-23-2024 17:05-0400 SaO2% (BldA) [Mass fraction] 95 % Phanigayle Ambrocio DO Work Phone: [facility] 05-23-2024 17:05-0400 Systolic blood pressure 175 mm[Hg] Phanigayle Ambrocio DO Work Phone: [facility] 05-18-2024 20:29-0500 Diastolic blood pressure 78 mm[Hg] Phani Ambrocio DO Work Phone: [facility] 05-18-2024 20:29-0500 Heart rate 53 /min Phani Ricci DO Work Phone: [facility] 05-18-2024 20:29-0500 Respiratory rate 24 /min Phani Ricci DO Work Phone: [facility] 05-18-2024 20:29-0500 SaO2% (BldA) [Mass fraction] 96 % Phani Ricci DO Work Phone: [facility] 05-18-2024 20:29-0500 Systolic blood pressure 172 mm[Hg] Phani Ricci DO Work Phone: [facility] 05-18-2024 16:58-0500 Body height 170.18 cm Phanigayle Ambrocio DO Work Phone: [facility] 05-18-2024 16:58-0500 Body temperature 98.6 [degF] Phanigayle Ambrocio DO Work Phone: [facility] 05-18-2024 16:58-0500 Body weight 90 kg Phanigayle Ambrocio DO Work Phone: [facility] 03-01-2024 11:07-0500 Body mass index (BMI) [Ratio] 33.27 kg/m2 Phani Ambrocio DO Work Phone: [facility] 03-01-2024 11:07-0500 Body weight 92.08 kg Phani Ambrocio DO Work Phone: [facility] 03-01-2024 11:07-0500 Diastolic blood pressure 52 mm[Hg] Phani Ambrocio DO Work Phone: [facility] 03-01-2024 11:07-0500 Heart rate 49 /min Phanigayle Ambrocio DO Work Phone: [facility] 03-01-2024 11:07-0500 SaO2% (BldA) [Mass fraction] 97 % Phani Ricci DO Work Phone: [facility] 03-01-2024 11:07-0500 Systolic blood pressure 102 mm[Hg] Phani Ambrocio DO Work Phone: [facility] 10-27-2023 15:12-0400 Body height 167.64 cm DO Phani Ricci Work Phone: [facility] 10-27-2023 15:12-0400 Body mass index (BMI) [Ratio] 30.7 kg/m2 DO Phani Ricci Work Phone: [facility] 10-27-2023 15:12-0400 Body weight 86.18 kg DO Phani Stevensonman Work Phone: [facility] 10-27-2023 15:12-0400 Diastolic blood pressure 87 mm[Hg] DO Phani Stevensonman Work Phone: [facility] 10-27-2023 15:12-0400 Heart rate 53 /min DO Phani Stevensonman Work Phone: [facility] 10-27-2023 15:12-0400 SaO2% (BldA) [Mass fraction] 96 % DO Phani Stevensonman Work Phone: [facility] 10-27-2023 15:12-0400 Systolic blood pressure 125 mm[Hg] DO Phani Ambroico Work Phone: [facility] 08-01-2023 15:01-0400 Body height 167.6 cm Kristofer Ortega MD Work Phone: [facility] 08-01-2023 15:01-0400 Body mass index (BMI) [Ratio] 29.86 kg/m2 Kristofer Ortega MD Work Phone: [facility] 08-01-2023 15:01-0400 Body weight 83.92 kg Kristofer Ortega MD Work Phone: [facility] 08-01-2023 15:01-0400 Diastolic blood pressure 62 mm[Hg] Kristofer Ortega MD Work Phone: [facility] 08-01-2023 15:01-0400 Heart rate 58 /min Kristofer Ortega MD Work Phone: [facility] 08-01-2023 15:01-0400 Systolic blood pressure 126 mm[Hg] Kristofer Ortega MD Work Phone: [facility] 12-01-2022 11:22-0400 Body height 168.91 cm Phani Ambrocio Work Phone: [facility] [address] DO Work Phone: 12-01-2022 11:22-0400 Body mass index (BMI) [Ratio] 31.96 kg/m2 Phani Ambrocio Work Phone: [facility] [address] DO Work Phone: 12-01-2022 11:22-0400 Body surface area Derived from formula 2.02 m2 Phani Ambrocio Work Phone: [facility] [address] DO Work Phone: 12-01-2022 11:22-0400 Body weight 91.17 kg Phani Ambrocio Work Phone: [facility] 250 DO Work Phone: 12-01-2022 11:22-0400 Diastolic blood pressure 58 mm[Hg] Phani Ambrocio Work Phone: [facility] 250 DO Work Phone: 12-01-2022 11:22-0400 Heart rate 60 /min Phani Ambrocio Work Phone: [facility] [address] DO Work Phone: 12-01-2022 11:22-0400 Systolic blood pressure 128 mm[Hg] Phani Ambrocio Work Phone: [facility] 250 DO Work Phone: 10-28-2022 13:00-0400 Body height 167.64 cm [employer] Other [employer] Other 10-28-2022 13:00-0400 Body mass index (BMI) [Ratio] 33.73 kg/m2 [employer] Other [employer] Other 10-28-2022 13:00-0400 Body weight 94.8 kg Lali Garcia Other [employer] Other 10-28-2022 13:00-0400 Diastolic blood pressure 61 mm[Hg] Lali Garcia Other [employer] Other 10-28-2022 13:00-0400 SaO2% (BldA) [Mass fraction] 93 % Lali Garcia Other [employer] Other 10-28-2022 13:00-0400 Systolic blood pressure 139 mm[Hg] Lali Garcia Other [employer] Other 05-19-2022 10:42-0500 Body height 168.91 cm Phani Ambrocio Work Phone: [facility] 250 DO Work Phone: 05-19-2022 10:42-0500 Body mass index (BMI) [Ratio] 34.02 kg/m2 Phani Ambrocio Work Phone: [facility] [employer] 250 DO Work Phone: 05-19-2022 10:42-0500 Body surface area Derived from formula 2.07 m2 Phani Ambrocio Work Phone: [facility] [employer] 250 DO Work Phone: 05-19-2022 10:42-0500 Body weight 97.07 kg Phani Ambrocio Work Phone: [facility] [employer] 250 DO Work Phone: 05-19-2022 10:42-0500 Diastolic blood pressure 64 mm[Hg] Phani Ambrocio Work Phone: [facility] [employer] 250 DO Work Phone: 05-19-2022 10:42-0500 Heart rate 56 /min Phani Ambrocio Work Phone: [facility] 250 DO Work Phone: 05-19-2022 10:42-0500 Systolic blood pressure 118 mm[Hg] Phani Stevensonman Work Phone: [facility] 250 DO Work Phone: 05-13-2021 11:30-0500 Body height 168.91 cm Phain Stevensonman Work Phone: [facility] 250 DO Work Phone: 05-13-2021 11:30-0500 Body mass index (BMI) [Ratio] 35.87 kg/m2 Phani Stevensonman Work Phone: [facility] 250 DO Work Phone: 05-13-2021 11:30-0500 Body surface area Derived from formula 2.12 m2 Phani Ambrocio Work Phone: [facility] [address] DO Work Phone: 05-13-2021 11:30-0500 Body weight 102.33 kg Phani Stevensonman Work Phone: [facility] [address] DO Work Phone: 05-13-2021 11:30-0500 Diastolic blood pressure 58 mm[Hg] Phani Ambrocio Work Phone: [facility] 250 DO Work Phone: 05-13-2021 11:30-0500 Heart rate 58 /min Phani Ambrocio Work Phone: [facility] 250 DO Work Phone: 05-13-2021 11:30-0500 Systolic blood pressure 108 mm[Hg] Phani Ambrocio Work Phone: [facility] [address] DO Work Phone: Encounters Encounter Date Encounter Type Care Provider Facility Start: 06-27-2024 End: 06-27-2024 Carmen GUILLERMO Work Phone: [facility] Start: 06-27-2024 End: 06-27-2024 Bamboo flowsheet Soledad Adonise PA Work Phone: [facility] Start: 06-27-2024 End: 06-27-2024 Office outpatient visit 25 minutes Soledad GUILLERMO Work Phone: [facility] Comment on above: Alteration of awaren ess (Primary Dx); Senile dementia, uncomplicated (CMS/HCC); Memory loss Start: 06-26-2024 End: 06-26-2024 Clinisync Result Encounter Zach Frias MD Work Phone: [facility] Unsolicited Start: 06-26-2024 End: 06-26-2024 Clinisync Result Encounter Zach Frias MD Work Phone: [facility] Unsolicited Start: 05-31-2024 End: 05-31-2024 Patient encounter procedure Phani Ambrocio DO Work Phone: [facility] Comment on above: Type 2 diabetes lorenzo itus with other specified complication, without long-term current use of insulin (CMS/HCC) (Primary Dx) Start: 05-25-2024 Non-patient / Non-visit Madison Ambrocio DO Work Phone: [facility] Work Phone: Start: 05-23-2024 End: 05-28-2024 ambulatory Phani Ambrocio Facility:[facility] Start: 05-23-2024 End: 05-28-2024 Evaluation and management of inpatient Phani Ambrocio DO Work Phone: [facility] [place] [facility] Work Phone: Start: 05-23-2024 End: 05-28-2024 observation encounter Phani Ambrocio DO Work Phone: [facility] Work Phone: Start: 05-18-2024 End: 05-18-2024 Emergency department patient visit Phani Ambrocio DO Work Phone: [facility] Work Phone: Start: 05-17-2024 End: 05-17-2024 Bamboo flowsheet Checo Baeza MD Work Phone: [facility] Start: 05-17-2024 End: 05-17-2024 Bamboo flowsheet Checo Baeza MD Work Phone: [facility] Start: 05-17-2024 End: 05-17-2024 Office outpatient visit 15 minutes Checo Baeza MD Work Phone: [facility] Comment on above: Herpes zoster withou t complication (Primary Dx); Seborrheic keratosis, inflamed; Seborrheic keratosis; Actinic keratosis Start: 05-17-2024 End: 05-17-2024 ambulatory CHECO BAEZA Not Available Start: 03-01-2024 End: 03-01-2024 Office outpatient visit 40 minutes Phani Ambrocio DO Work Phone: [facility] Comment on above: Essential hypertensi on (CMS/HCC) (Primary Dx); Type 2 diabetes mellitus with other specified complication, without long-term current use of insulin (CMS/HCC); Mixed hyperlipidemia (CMS/HCC); 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, unspecified vessel or [...] Result Encounter Phani Ambrocio DO Work Phone: [facility] External Department Unsolicited Start: 02-27-2024 End: 02-28-2024 External Result Encounter Phani Ambroico DO Work Phone: [facility] Department Unsolicited Start: 02-27-2024 End: 02-27-2024 Patient encounter procedure Phani Ambrocio DO Work Phone: [facility] Start: 02-27-2024 End: 02-27-2024 ambulatory Phani Ambrocio Facility:[facility] Start: 02-23-2024 End: 02-23-2024 ambulatory [facility] Start: 11-16-2023 End: 11-17-2023 External Result Encounter Phani Luz Ricci DO Work Phone: [facility] External Department Unsolicited Start: 11-16-2023 End: 11-17-2023 External Result Encounter Phani A Ricci DO Work Phone: [facility] External Department Unsolicited Start: 11-16-2023 End: 11-16-2023 Patient encounter procedure DO Phani Ambrocio Work Phone: [facility] Start: 11-16-2023 End: 11-16-2023 ambulatory DO Phani Ambrocio Work Phone: [facility] Work Phone: Start: 10-27-2023 End: 10-27-2023 ambulatory DO Phani Ambrocio Work Phone: [facility] Work Phone: Start: 10-27-2023 End: 10-27-2023 Patient encounter procedure DO Phani Amborcio Work Phone: [facility] Work Phone: Start: 08-31-2023 End: 08-31-2023 ambulatory PHANI AMBROCIO Not Available Start: 08-25-2023 End: 08-25-2023 Patient encounter procedure DO Phani Ambrocio Work Phone: [facility] Start: 08-25-2023 End: 08-25-2023 ambulatory DO Phani Ambrocio Work Phone: [facility] Work Phone: Start: 08-01-2023 End: 08-01-2023 ambulatory KRISTOFER Boyd [facility] Start: 08-01-2023 End: 08-01-2023 Office outpatient visit 25 minutes Kristofer Ortega MD Work Phone: [facility] Comment on above: Atherosclerosis of c oronary artery, unspecified vessel or lesion type, unspecified whether angina present, unspecified whether eastern shoshone or transplanted heart (Primary Dx); Status post coronary angioplasty; Hyperlipidemia, unspecified hyperlipidemia type; Type 2 diabetes mellitus without complication, unspecified whether intermodal dispatcher insulin use (Multi); Sleep apnea, unspecified type; Former smoker; Overweight (BMI 25.0-29.9); At risk for falls Start: 02-21-2023 End: 02-21-2023 ambulatory DO Phani Ambrocio Work Phone: [facility] Work Phone: Start: 02-21-2023 End: 02-21-2023 Patient encounter procedure DO Phani Ambrocio Work Phone: [facility] Start: 12-01-2022 Office outpatient vi sit 25 minutes Phani Ambrocio Work Phone: [facility] 250 DO Work Phone: Start: 12-01-2022 ambulatory Kristofer Ortega Facility :[id number] Start: 10-28-2022 End: 10-28-2022 ambulatory Lali Garcia Other [employer] [facility] [employer] Other Start: 10-28-2022 Office outpatient vi sit 25 minutes Lali Garcia [facility] Start: 05-26-[address] Phani Nixon Facility:[id number] Start: 05-19-2022 Office outpatient vi sit 25 minutes Phani Ambrocio Work Phone: [facility] 250 DO Work Phone: Start: 05-19-2022 ambulatory Kristofer Ortega Facility : Start: 11-17-2021 End: 11-17-2021 Patient encounter procedure DO Phani Ambrocio Work Phone: [facility] [place] Start: 09-15-2021 Rx Renewal Phani villagran Work Phone: [facility] 250 DO Work Phone: Start: 05-13-2021 Office outpatient vi sit 25 minutes Phani Ambrocio Work Phone: [facility] 250 DO Work Phone: Start: 01-15-2021 ([facility] C Vac) [facility] Co vid Vaccine Teresa Fitt [facility] Start: 01-15-2021 End: 01-15-2021 ambulatory Teresa Fitt Other [facility] [employer] Other Start: 01-05-2018 Patient encounter KRISTOFER ORTEGA Fac ility:[id number] Procedures Date Procedure Procedure Detail Performing Clinician Start: 06-26-2024 ALL AMMONIA Zach Minaya MD Work Phone: Start: 05-26-2024 MRI of head Phani schwartz [...] count with white cell differential, automated Phani Luz Ricci DO Work Phone: Start: 02-27-2024 Comprehensive metabo lic panel Phani Stevensonman DO Work Phone: Start: 02-27-2024 Lipid panel Phani Stevensonman DO Work Phone: Start: 02-27-2024 Urine albumin quantitative Phani Ambrocio DO Work Phone: Start: 11-16-2023 Urine albumin quantitative Phani Stevensonman DO Work Phone: Start: 11-16-2023 Complete blood count with white cell differential, automated Phani Ambrocio Work Phone: Start: 11-16-2023 Hemoglobin glycosylated a1c Phani Ambrocio DO Work Phone: Start: 09-18-2019 Lipid 1996 panel - S grady or Plasma Kristofer Ortega MD Work Phone: Cataract surgery Phani hart Work Phone: History of percutane ous transluminal coronary angioplasty History of PTCA Phani Ambrocio Work Phone: Percutaneous translu sergio coronary angioplasty Phani Ambrocio Work Phone: Total colonoscopy Phani Ambrocio Work Phone: Plan of Treatment Date Care Activity Detail Author Start: 05-16-2025 End: 05-16-2025 Patient encounter procedure 05/16/2025 11:35 AM EST Office Visit [facility] [address] [place] [address] Checo Baeza MD [address] [place] [address] [facility] Start: 02-26-2025 Urine screening for protein Diabetes: Urine Protein Screening [facility] Start: 11-15-2024 Urine screening for protein Diabetes: Urine Protein Screening [facility] Start: 08-30-2024 End: 03-01-2025 CBC W Auto Differential panel - Blood CBC and differential Lab Routine Essential hypertension ([facility]/HCC) Medication management Expected: 08/30/2024 (Approximate), Expires: 03/01/2025 [facility] Work Phone: Comment on above: Expected: 08/30/2024 (Approximate), Expires: 03/01/2025 Start: 08-30-2024 End: 03-01-2025 Comprehensive metabolic 2000 panel - Serum or Plasma Comprehensive metabolic panel Lab Routine Essential hypertension ([facility]/HCC) Medication management Expected: 08/30/2024 (Approximate), Expires: 03/01/2025 [facility] Comment on above: Expected: 08/30/2024 (Approximate), Expires: 03/01/2025 Start: 08-30-2024 End: 03-01-2025 Hemoglobin a1c with eag Hemoglobin a1c with eag Lab Routine Type 2 diabetes mellitus with other specified complication, without long-term current use of insulin ([facility]) Expected: 08/30/2024 (Approximate), Expires: 03/01/2025 [facility] Comment on above: Expected: 08/30/2024 (Approximate), Expires: 03/01/2025 Start: 08-30-2024 End: 03-01-2025 Lipid 1996 panel - Serum or Plasma Lipid panel Lab Routine Mixed hyperlipidemia ([facility]) Expected: 08/30/2024 (Approximate), Expires: 03/01/2025 [facility] Comment on above: Expected: 08/30/2024 (Approximate), Expires: 03/01/2025 Start: 08-30-2024 End: 03-01-2025 Microalbumin/Creatinine panel in random Urine Microalbumin / creatinine urine ratio Lab Routine Essential hypertension ([facility]/HCC) Medication management Expected: 08/30/2024 (Approximate), Expires: 03/01/2025 [facility] Comment on above: Expected: 08/30/2024 (Approximate), Expires: 03/01/2025 Start: 08-30-2024 End: 03-01-2025 Thyrotropin [Units/volume] in Serum or Plasma TSH Lab Routine Essential hypertension ([facility]) Medication management Expected: 08/30/2024 (Approximate), Expires: 03/01/2025 [facility] Comment on above: Expected: 08/30/2024 (Approximate), Expires: 03/01/2025 Start: 08-02-2024 End: 08-02-2024 Patient encounter procedure 08/02/2024 10:45 AM EDT Office Visit [facility] [address] [place] [id number] Phani Ambrocio DO [address] [place] [address] [facility] Start: 07-02-2024 End: 07-02-2024 Patient encounter procedure 07/02/2024 3:05 PM EDT Office Visit [facility] [address] [place] [address] Checo Baeza MD [address] [place] [address] [facility] Start: 06-27-2024 End: 06-27-2025 Blood gases, arterial measurement Blood gas, arterial Lab Routine Senile dementia, uncomplicated (CMS/HCC) Memory loss Expected: 06/27/2024 (Approximate), Expires: 06/27/2025 [facility] Comment on above: Expected: 06/27/2024 (Approximate), Expires: 06/27/2025 Start: 06-27-2024 End: 06-27-2025 CBC W Auto Differential panel - Blood CBC and differential Lab Routine Alteration of awareness Expected: 06/27/2024 (Approximate), Expires: 06/27/2025 [facility] Work Phone: Comment on above: Expected: 06/27/2024 (Approximate), Expires: 06/27/2025 Start: 06-27-2024 End: 06-27-2025 Comprehensive metabolic 2000 panel - Serum or Plasma Comprehensive metabolic panel Lab Routine Alteration of awareness Expected: 06/27/2024 (Approximate), Expires: 06/27/2025 [facility] Comment on above: Expected: 06/27/2024 (Approximate), Expires: 06/27/2025 Start: 06-27-2024 End: 06-27-2025 EEG awake or drowsy EEG awake or drowsy Neurology Routine Alteration of awareness Expected: 06/27/2024 (Approximate), Expires: 06/27/2025 [facility] Comment on above: Expected: 06/27/2024 (Approximate), Expires: 06/27/2025 Start: 06-27-2024 End: 06-27-2024 Patient encounter procedure NGHIA CASTRO Comment on above: Arrived Start: 05-28-2024 [facility] Start: 05-27-2024 Hemoglobin A1c measurement Diabetes: Hemoglobin A1C [facility] Start: 05-24-2024 Referral to rehabilitation physician [facility] Start: 05-24-2024 End: 05-24-2024 [facility] Start: 05-23-2024 Referral to neurologist [facility] Start: 05-23-2024 Physical therapy procedure [facility] Start: 05-23-2024 Referral to occupati onal therapist [facility] Start: 05-23-2024 [facility] Start: 05-23-2024 Hospital admission [facility] Start: 05-17-2024 End: 05-17-2024 Patient encounter procedure [facility] Comment on above: Arrived Start: 03-01-2024 End: 03-01-2024 Patient encounter procedure 03/01/2024 10:30 AM EST Office Visit [facility] [address] [place] [address] Phani Ambrocio DO [address] [place] [address] [facility] Start: 02-23-2024 End: 02-23-2024 Patient encounter procedure 02/23/2024 9:30 AM EST Office Visit [facility] [address] [facility] [address] [place] [address] Kristofer Ortega MD [address] [facility] [address] [place] [address] [facility] Start: 02-15-2024 Hemoglobin A1c measurement Diabetes: Hemoglobin A1C [facility] Start: 11-25-2023 Hemoglobin A1c measurement Diabetes: Hemoglobin A1C [facility] Start: 11-16-2023 [facility] Start: 11-13-2023 Influenza vaccination Influenza Vacc ine (#1) [facility] Start: 08-31-2023 COVID-19 Vaccine () COVID-19 Vaccine () [facility] Start: 08-25-2023 [facility] Start: 08-20-2023 Urine screening for protein Diabetes: Urine Protein Screening [facility] Start: 02-21-2023 [facility] Start: 01-08-2023 Glaucoma screening Diabetes: R etinopathy Screening [facility] Start: 12-01-2022 FUV, Provider: Kristofer Ortega, Status: Pen, Time: 11:10 AM FUV, Provider: Kristofer Ortega, Status: Pen, Time: 11:10 AM [facility] 250 DO Work Phone: Start: 05-26-2022 CAROTID, [facility]: [place] [facility] 01,[id number], Status: Pen, Time: 8:45 AM CAROTID, Provider: [place] [facility] ULTRASOUND 01,[id number], Status: Pen, Time: 8:45 AM [facility] 250 DO Work Phone: Start: 11-25-2021 FUV, Provider: Kristofer Ortega, Status: Pen, Time: 11:00 AM FUV, Provider: Kristofer Ortega, Status: Pen, Time: 11:00 AM [facility] 250 DO Work Phone: Start: 11-17-2021 [facility] Work Phone: Start: 09-17-2020 Lipid panel Lipid Panel [facility] Start: 03-19-2020 Glaucoma screening Diabetes: R etinopathy Screening [facility] Start: 10-15-2016 Zoster Vaccines (2 of 3) Zoster Vacc vamsi (2 of 3) [facility] Start: 2002 RSV patient s and/or patients aged 60+ years (1 - 1-dose 60+ series) RSV patients and/or patients aged 60+ years (1 - 1-dose 60+ series) [facility] Start: 1964 DTaP/Tdap/Td Vaccine s (1 - Tdap) DTaP/Tdap/Td Vaccines (1 - Tdap) [facility] Start: 1961 Urine screening for protein Diabetes: Urine Protein Screening [facility] Start: 1952 Diabetic foot examination Diabetes: Foot Exam [facility] Start: 1942 Hemoglobin A1c measurement Diabetes: Hemoglobin A1C [facility] Start: 1942 Medicare Annual Well ness Visit Medicare Annual Wellness Visit (AWV) [facility] Albumin [Mass/volume ] in Serum or Plasma [facility] Albumin/Globulin ratio [facility] Anion gap measurement [facility] Basophils [#/volume] in Blood by Automated count [facility] Basophils/100 leukoc ytes in Blood by Automated count [facility] Calculated LDL cholesterol level [facility] Cholesterol.total/Ch oles terol in HDL [Mass Ratio] in Serum or Plasma [facility] Comprehensive metabo lic 2000 panel - Serum or Plasma Comprehensive metabolic panel Lab Routine 11/16/2023 1:33 PM EDT [facility] Work Phone: Electrophoresis: [id number] [facility] Electrophoresis: [id number] [facility] Electrophoresis: beta-globulin [facility] Electrophoresis: naldo ma globulin [facility] Eosinophils/100 leukocytes in Blood by Automated count [facility] Erythrocyte distribu tion width [Ratio] by Automated count [facility] Erythrocytes [#/volu me] in Blood [facility] Globulin [Mass/volum e] in Serum [facility] Glucose measurement estimated from glycated hemoglobin [facility] Work Phone: Glucose measurement estimated from glycated hemoglobin [facility] Glucose measurement estimated from glycated hemoglobin [facility] Glucose measurement estimated from glycated hemoglobin [facility] Glucose measurement estimated from glycated hemoglobin [facility] Hematocrit [Volume Fraction] of Blood [facility] Hemoglobin [Mass/vol ume] in Blood [facility] Hemoglobin A1c/Hemoglobin.total in Blood [facility] Work Phone: Hemoglobin A1c/Hemoglobin.total in Blood [facility] IgA [Mass/volume] in Serum or Plasma [facility] IgG [Mass/volume] in Serum or Plasma [facility] IgM [Mass/volume] in Serum or Plasma [facility] Leukocytes [#/volume ] corrected for nucleated erythrocytes in Blood by Automated coun [facility] Leukocytes [#/volume ] in Blood [facility] Lipid 1996 panel - S grady or Plasma Lipid panel Lab Routine 11/16/2023 1:33 PM EDT [facility] Lymphocytes [#/volum e] in Blood by Automated count [facility] Lymphocytes/100 leukocytes in Blood by Automated count [facility] MCH [Entitic mass] b y Automated count [facility] MCHC [Mass/volume] b y Automated count [facility] MCV [Entitic volume] by Automated count [facility] Monocytes [#/volume] in Blood by Automated count [facility] Monocytes/100 leukoc ytes in Blood by Automated count [facility] Neutrophils [#/volum e] in Blood by Automated count [facility] Neutrophils/100 leukocytes in Blood by Automated count [facility] Nucleated erythrocyt es [Presence] in Blood by Automated count [facility] Patient Education Tremor Weakness [facility] Work Phone: Patient referral [facility] Work Phone: Platelet mean volume [Entitic volume] in Blood by Automated count [facility] Platelets [#/volume] in Blood [facility] Protein [Mass/volume ] in Serum or Plasma [facility] Reagin Ab [Presence] in Serum by RPR [facility] Serum immunofixation [facility] VLDL cholesterol measurement [facility] Immunizations Immunization Date Immunization Notes Care Provider Fa eddie 05-23-2024 tetanus toxoid, redu sandra diphtheria toxoid, and acellular pertussis vaccine, adsorbed Phani Ambrocio DO Work Phone: [facility] 03-01-2024 Seasonal trivalent influenza vaccine, adjuvanted, preservative free Phani Ambrocio DO Work Phone: [facility] 11-29-2022 Fluad Quadrivalent 0 .5 ML Intramuscular Prefilled Syringe Phani Ambrocio Work Phone: [facility] 11-29-2022 influenza virus vaccine, unspecified formulation Phani Ambrocio DO Work Phone: [facility] 11-24-2021 influenza, high dose seasonal, preservative-free Phani Ambrocio Work Phone: [facility] [employer] DO Work Phone: 01-15-2021 COVID-19 Moderna Teresa Fitt Other [facility] 01-14-2021 Moderna SARS-CoV-2 Booster Vaccination Phani Ambrocio DO Work Phone: [facility] 12-04-2020 influenza, high dose seasonal, preservative-free Phani Ambrocio Work Phone: [facility] [employer] DO Work Phone: 05-29-2020 Moderna COVID-19 Vaccine 100 MCG/0.5ML Intramuscular Suspension Phain Ambrocio Work Phone: [facility] 05-01-2020 Moderna COVID-19 Vaccine 100 MCG/0.5ML Intramuscular Suspension Phani Ambrocio Work Phone: [facility] 12-17-2019 Seasonal trivalent influenza vaccine, adjuvanted, preservative free [facility] Work Phone: 01-01-2019 pneumococcal conjuga te vaccine, 13 valent Phani Ambrocio Work Phone: [place] [address] DO Work Phone: 12-31-2018 pneumococcal conjuga te vaccine, 13 valent Phani Ambrocio DO Work Phone: [facility] 11-12-2018 influenza virus vaccine, unspecified formulation Phani Ambrocio Work Phone: [place] [address] DO Work Phone: 11-12-2018 influenza, seasonal, injectable Kristofer Ortega MD Work Phone: [facility] Work Phone: 09-27-2018 pneumococcal conjuga te vaccine, 13 valent Phani Ambrocio Work Phone: [place] [address] DO Work Phone: 09-27-2018 pneumococcal polysaccharide vaccine, 23 valent Phani Ambrocio Work Phone: [place] [address] DO Work Phone: 01-07-2018 Seasonal trivalent influenza vaccine, adjuvanted, preservative free Phani Ambrocio Work Phone: [place] [address] DO Work Phone: 12-12-2017 influenza virus vaccine, unspecified formulation Phani Ambrocio Work Phone: [place] [address] DO Work Phone: 08-20-2016 zoster vaccine, live Phani Ambrocio Work Phone: [place] [address] DO Work Phone: 06-24-2016 pneumococcal conjuga te vaccine, 13 valent Phani Ambrocio Work Phone: [place] [address] DO Work Phone: 12-10-2015 influenza virus vaccine, unspecified formulation DO Phani Ambrocio Work Phone: [facility] 12-10-2015 influenza, high dose seasonal, preservative-free Teresa Fitt Other [facility] [employer] Other 11-13-2015 influenza virus vaccine, unspecified formulation Phani Ambrocio Work Phone: [facility] [employer] DO Work Phone: 01-12-2015 influenza virus vaccine, unspecified formulation Phani Ambrocio Work Phone: [place] [address] DO Work Phone: 12-05-2014 influenza, injectabl e, quadrivalent, contains preservative Teresa Fitt Other [facility] 12-05-2014 influenza, injectabl e, quadrivalent, preservative free Phani Ambrocio Work Phone: [place] [address] DO Work Phone: 01-14-2014 influenza, injectabl e, quadrivalent, contains preservative Teresa Fitt Other [facility] 01-12-2014 influenza virus vaccine, unspecified formulation Phani Ambrocio Work Phone: [place] [address] DO Work Phone: 11-30-2012 influenza, injectabl e, quadrivalent, contains preservative Teresa Fitt Other [facility] 03-14-2012 pneumococcal polysaccharide vaccine, 23 valent Phani A Ricci Work Phone: [facility] [employer] DO Work Phone: 12-02-2011 pneumococcal polysaccharide vaccine, 23 valent Teresa Fitt Other [facility] 12-02-2011 influenza, injectabl e, quadrivalent, contains preservative Teresa Fitt Other [facility] influenza virus vaccine, unspecified formulation Phani Ambrocio Work Phone: [facility] [address] DO Work Phone: Comment on above: 2012 Payers Date Payer Category Payer Self-pay [id number] 2012 [facility] [employer] [id number] 2012 Unknown 2009 Unknown [id number] 2007 Medicare [id number] 2007 Medicare [id number] 1942 Unknown [id number] 9.2.355 1942 Unknown [id number] 9.2.1068 1942 Unknown [id number] 9.2.356 1942 Unknown [id number] 9.2.356 1942 Unknown [id number] 9.2.1244 1942 Unknown [id number] 9.2.1244 1942 Unknown [id number] [id number] 9.2.1259 1942 Unknown [id number] 9.2.1259 1942 Unknown [id number] [id number] 9.2.1259 Medicare [id number] Unknown [id number] 9.2.531 Unknown [id number] 9.2.531 Unknown [id number] 9.2.531 Unknown [id number] 9.2.531 Unknown [id number] 9.2.531 Social History Date Type Detail Facility Start: 08-01-2023 End: 08-31-2023 Alcohol use Alcohol use [facility] Comment on above: rarely occasional; 4 cups of coffee 12 oz cups; Start: 08-01-2023 End: 08-31-2023 Sex Assigned At [facility] Start: 1940 Sex Assigned At Male F [facility] Start: 04-12-2023 End: 06-27-2024 Tobacco smoking status NHIS Ex-smoker [facility] Work Phone: End: 06-11-1985 History of tobacco use Current smoker [facility] Work Phone: End: 06-11-1985 History of tobacco use Cigarette Smoker [facility] Work Phone: Start: 08-01-2023 Alcoholic beverage intake Ex-drinker (finding) [facility] Work Phone: Start: [birth year]31-1941 Sex assigned at Not on file [facility] Work Phone: Start: 07-22-2023 End: 08-01-2023 Exposure to SARS-CoV-2 (event) [facility] sure [facility] [place] Start: 08-25-2022 End: 06-27-2024 Tobacco use and exposure Smokeless tobacco non-user [facility] Start: 08-31-2023 End: 06-27-2024 Alcoholic beverage intake Current drinker of alcohol [...] Start: 05-18-2024 End: 05-28-2024 Sex Male (finding) [facility] Start: 05-23-2024 Tobacco smoking stat us GAIS Unknown if ever smoked [facility] Start: 05-28-2024 SDOH Follow up SDOH Follow up [facility] Work Phone: Medical Equipment Procedure Code Equipment Code Equipment Origin al Text Equipment Identifier Dates [id number] Start: 08-02-2023 1 Device by Othe r route Daily Test daily [id number] Start: 08-02-2023 Goals Date Patient Goal Desired Activity /State Functional Status Date Assessment Result Facility 05-28-2024 Functional status Patient at Baseline [facility] Work Phone: 05-23-2024 Functional status Patient is Pro gressing Toward Baseline [facility] Work Phone: Mental Status Date Assessment Result Facility 05-28-2024 Cognitive function Cognitive Sta tus Patient at Baseline [facility] Work Phone: 05-23-2024 Cognitive function Cognitive Sta tus Patient Not at Baseline [facility] Work Phone: Clinical Notes 01-15-2021 to 06-27-2024 MIMA Daniel - 06/27/2024 10:00 AM EDT Note Date & Type Note Facility 06-27-2024 History of Presen t illness Narrative Images from the original note were not included. Subjective Des Jacob is a 83 y.o. year old male Chief Complaint Patient presents with Hospital Follow-up Past Medical History: Diagnosis Date BPH (benign prostatic hyperplasia) CAD (coronary artery disease) ([facility]) Hearing loss HTN (hypertension) ([facility]) Insomnia Type 2 diabetes mellitus Past Surgical History: Procedure Laterality Date COLONOSCOPY 07/10/[address] Palacio .Dx with Diverticulosis OTHER SURGICAL HISTORY 2010 Stents Family History Problem Relation Name Age of Onset Multiple sclerosis Mother Heart disease Father Melanoma Neg Hx Social History Tobacco Use Smoking status: Former Current packs/day: 0.00 Types: Cigarettes Quit date: 06/11/1985 Years since quittin.0 Smokeless tobacco: Never Tobacco comments: Ex moderate cigarette smoker (10-19 cigarettes/day) Substance Use Topics Alcohol use: Yes Comment: Alcohol: 6 or more drinks less than monthly; 1-2 drinks/monthly or less; Caffeine: 3-4 cups/day Medication Documentation Review Audit Reviewed by Diana Andrea MA (Core Composer Machine Tender) on 06/27/24 at 1009 Medication Order Taking? Sig Documenting Provider Last Dose Status Alcohol Sheets (Alcoh-Wipe) sheet [id number] Test daily before all meals/snacks and once before bedtime. Phani Ambrocio, DO Active amLODIPine (Norvasc) 5 MG tablet [id number] Take 5 mg by mouth Daily Historical Provider, Active aspirin (ASPIR) 81 MG EC tablet [id number] Take 81 mg by mouth 1 (one) time. Historical Provider, Active atorvastatin (Lipitor) 40 MG tablet [id number] Take 1 tablet (40 mg) by mouth at bedtime Phani Ambrocio DO Active donepezil (Aricept) 10 MG tablet [id number] Take 1 tablet (10 mg) by mouth at bedtime Patient not taking: Reported on 06/27/2024 Phani Ambrocio DO Active ergocalciferol (Vitamin D-2) 1.25 MG (43541 UT) capsule [id number] Take 1.25 mg by mouth 1 (one) time per week Historical ProviderMD Active finasteride (Proscar) 5 MG tablet [id number] TAKE 1 TABLET BY MOUTH EVERY DAY Phani Ambrocio DO Active FLUoxetine (PROzac) 40 MG capsule [id number] Yes Take 1 capsule (40 mg) by mouth Daily Patient taking differently: Take 20 mg by mouth Daily Phani Ambrocio DO Active glucose blood (Accu-Chek Lacy Plus) test strip [id number] 1 each by Other route Daily Phani Ambrocio DO Active Lancets Misc. (Accu-Chek Softclix Lancet Dev) kit [id number] 1 Device by Other route Daily Test daily Phani Ambrocio DO Active LORazepam (Ativan) 0.5 MG tablet [id number] Take 0.5 mg by mouth in the morning and 0.5 mg before bedtime. Historical ProviderMD Active melatonin 5 MG tablet [id number] Take by mouth Historical ProviderMD Active memantine (Namenda) 10 MG tablet [id number] Take 1 tablet by mouth in the morning and 1 tablet before bedtime. Phani Ambrocio DO Active metFORMIN (Glucophage) 500 MG tablet [id number] Take 1 tablet (500 mg) by mouth in the morning. Take with meals. Phani Ambrocio DO Active midodrine (Proamatine) 2.5 MG tablet [id number] Take 1 tablet (2.5 mg) by mouth in the morning and 1 tablet (2.5 mg) before bedtime. Patient not taking: Reported on 06/27/2024 Phani Ambrocio DO Active nystatin-triamcinolone (Mycolog II) cream [id number] Apply topically 2 (two) times a day. Patient not taking: Reported on 06/27/2024 Historical ProviderMD Active QUEtiapine (SEROquel) 25 MG tablet [id number] Take 25 mg by mouth at bedtime Historical ProviderMD Active terazosin (Hytrin) 1 MG capsule [id number] Take 1 capsule (1 mg) by mouth Daily Patient not taking: Reported on 06/27/2024 Phani Ambrocio DO Active valACYclovir (Valtrex) 1 g tablet [id number] Take 1 tablet, by mouth, three times a day x 7 days Patient not taking: Reported on 06/27/2024 Checo Baeza MD Active HPI HPI Mr. Jacob is an 83 year old male who was seen at [facility] for declining functional status. Patient is a poor historian and is unable to answer any of my questions in the exam room. The aide that is with him does not know his history. Patient is wheelchair bound. He did have some extremity jerking while taking his blood pressure. Staff notes he is like this most of the time. It appears that he was home prior to hospitalization. She denies seeing CPAP in his room. During evaluation his head is leaning back and he appears apneic but he is having shallow breathing. He responds rapidly to sternal rub but quickly falls back to sleep. He does not appear to be in any respiratory distress. ROS Review of Systems Constitutional: Positive for fatigue. HENT: Negative for tinnitus and voice change. Eyes: Negative for visual disturbance. Cardiovascular: Negative for chest pain and palpitations. Musculoskeletal: Positive for gait problem. Neurological: Positive for weakness. Negative for seizures and headaches. Psychiatric/Behavioral: Positive for confusion. Objective Visit Vitals BP 130/72 (BP Location: Left arm, Patient Position: Sitting) Ht 5' 5.5 Wt 190 lb BMI 31.14 kg/m Smoking Status Former BSA 2 m Neurological Exam Mental Status Arousable to tactile stimuli. Oriented only to person. Recalls 0 of 3 objects immediately. Speech is normal. Unable to follow commands. Attention and concentration: Unable to assess. Cranial Nerves CN II: Unable to test. CN III, IV, : Normal lids and orbits bilaterally. CN V: Facial sensation is normal. CN VII: Right: There is no facial weakness. Left: There is no facial weakness. CN VIII: Hearing is normal. CN IX, X: Palate elevates symmetrically Motor Examination patient did not cooperate for below exam RUE Strength deltoid, biceps, triceps, wrist extensors, wrist extensors, wrist flexor, window cleaner strength LUE Strength deltoid, biceps, triceps, wrist extensors, wrist extensors, wrist flexor, window cleaner strength RLE Strength illopsoas, quadriceps, tibialis anterior, and gastrocnemius strength LLE Strength illopsoas, quadriceps, tibialis anterior, and gastrocnemius strength Reflexes: RUE biceps reflex 2, LUE biceps reflex 2, RLE knee reflex 2, LLE knee reflex 2, Assessment and Plan Diagnoses and all orders for this visit: Alteration of awareness - CBC and differential; Future - Comprehensive metabolic panel; Future - EEG awake or drowsy; Future Senile dementia, uncomplicated (CMS/HCC) - Blood gas, arterial; Future Memory loss - Blood gas, arterial; Future The patient is an 83-year-old male who presented to [facility] 05/23/2024 after he had been having recurrent falls with 6 falls in the previous 2 weeks. His family had concern due to progressive weakness as well as cognitive issues. Patient was unable to take care of himself. He reported to the hospital staff that his legs do feel weak and shaky when he is standing which makes him feel like he is going to fall. He notes he falls more due to his imbalance versus near-syncope. Save to the brain 05/23/2024 revealed no acute process with atrophy noted but not concerning for normal pressure hydrocephalus. Orthostatic vital signs were positive as supine he was 167/65 and standing was 119/67. On exam he did have dysconjugate gaze with some nystagmus with loss of smooth pursuit which could suggest brainstem / cerebellar process but it was thought that his findings are probably chronic and remote. Terazosin was listed as a home medication this was held during his hospital stay due to orthostasis. SPEP was obtained which revealed asymmetrical gamma and he was referred to hematology. Aricept was discontinued. MRI of the brain 05/26/2024 revealed no acute process with scattered microvascular ischemic changes and mild atrophy. During evaluation today, he is rather lethargic and fatigued with falling to sleep quickly with mouth open with minimal response to voice. He did respond abruptly to sternal rub. He is oriented to his name only. Place: [place], Time: 1979. Staff notes that he has been like this since arriving to the care center. She denies seeing any form of CPAP or BiPAP in his room due to my concern for untreated sleep apnea. Plan: Extensive hospital notes and records reviewed including MRI brain, orthostatic vital signs, lab work, neurology consultation report and progress notes. Not sure of his base line but his notes do report that he was at home prior to his hospital stay. I tried to reach out to his Gabi at [phone] but had to leave a message for call back. I tried to reach out to his daughter Criselda at [phone] but had to leave a message as well. Per documentation he is DNR comfort care arrest. I will obtain an EEG STAN at [facility] to assess for seizure or epileptiform activity which may explain the patient episodes and symptoms, as he appears to be in and out of consciousness to some degree. We can assess whether this is neurodegenerative in nature versus epileptiform activity. Due to the patterns of respirations I am concerned for hypercapnia we will obtain an ABG once he gets back to the care center. Staff notes that he does not have CPAP or BiPAP in his room. He likely would not tolerate PSG at this point. I will obtain lab work to assess for an underlying contributing factor to his symptoms including electrolyte derangement or other metabolic process. Due to the nature of his symptoms, I advised staff that I have a low threshold of him being evaluated in the emergency department. We will follow closely with lab work result regardless. documented in this encounter [facility] 05-28-2024 Progress note Note Date/Time May 28, 2024 10:29am [facility] [address] [place] [address] Hospitalist Progress Note Signed Patient: Des Jacob MR#: [id number] 406 : 1940 Acct:[id number] Age/Sex: 83 / M Adm Date: 5 Loc: Room: [address] [place] [address] Type: ADM INOo Attending Dr: Dread Toney [...] 05/25/24 09:00 05/28/24 08:55 Aspirin 81 Mg Tablet. PO 05/25/25 08:59 81 mg DAILY MG Administration Atorvastatin Calcium 40 mg 05/25/24 09:00 05/28/24 08:55 Atorvastatin 40 Mg Tablet PO 05/25/25 08:59 40 mg DAILY MG Administration Enoxaparin Sodium 40 mg 05/24/24 10:00 05/28/24 09:59 Enoxaparin 40 Mg/0.4 Ml Syringe SUBCUT 05/24/25 09:59 Not Given DAILY@10 [facility] Ergocalciferol 1,250 mcg 05/24/24 09:00 05/24/24 08:35 Ergocalciferol 1,250 Mcg (50,000 Units) Capsule PO 05/24/25 08:59 1,250 mcg Th@0900 [facility] Administration Fluoxetine HCl 40 mg 05/25/24 09:00 [...] <Electronically signed by Dread Toney DO> 05/28/24 1029 [facility] Work Phone: 1(709) 260-335103-17-2025 [place] [id number] Hospitalist Progress Note Signed Patient: eDs Jacob MR#: [id number] 406 : 1940 Acct:[id number] Age/Sex: 83 / M Adm Date: 5 Loc: Room: [address] [place] [address] Type: ADM INOo Attending Dr: Dread Toney [...] Dread Toney DO 05/28/24 1027 Signed By: 05/28/24 1029 [facility]03-16-2025 Progress note Author Dread Toney [facility] Note Date/Time May 27, 2024 11: 09am [facility] [address] [place] [address] Hospitalist Progress Note Signed Patient: Des Jacob MR#: [id number] 406 : 1940 Acct:[id number] Age/Sex: 83 / M Adm Date: 5 Loc: 3T Room: [address] [place] [address] Type: ADM INOo Attending Dr: Dread Toney [...] Full code Documented By: Dread Toney DO 05/27/24 110 Signed By: <Electronically signed by Dread Toney, > 05/27/24 1109 [facility] Work Phone: 1(322) 173-132303-16-2025 [place] [address] Hospitalist Progress Note Signed Patient: Des Jacob MR#: [id number] 406 : 1940 Acct:[id number] Age/Sex: 83 / M Adm Date: 5 Loc: Room: [address] [place] [address] Type: ADM INOo Attending Dr: Dread Toney [...] 09:00 05/27/24 08:40 Aspirin 81 Mg Tablet.Dr PO 05/25/25 08:59 81 mg DAILY MG Administration Atorvastatin Calcium 40 mg 05/25/24 09:00 05/27/24 08:40 Atorvastatin 40 Mg Tablet PO 05/25/25 08:59 40 mg DAILY MG Administration Enoxaparin Sodium 40 mg 05/24/24 10:00 05/27/24 10:06 Enoxaparin 40 Mg/0.4 Ml Syringe SUBCUT 05/24/25 09:59 Not Given DAILY@10 [facility] Ergocalciferol 1,250 mcg 05/24/24 09:00 05/24/24 08:35 [...] Full code Documented By: Dread Toney DO 05/27/24 1108 Signed By: 05/27/24 1109 [facility]03-15-2025 Progress note Author Marlo Conner [facility] Note Date/Time May 26, 2024 11: 14am [facility] [address] [place] [address] Neurology Progress Note Signed with Addenda Patient: Des Jacob MR#: [id number] 406 : 1940 Acct:[id number] Age/Sex: 83 / M Adm Date: 5 Loc: 3T Room: 4T3256-2 Type: ADM INOo Attending Dr: Dread Toney [...] Addendum Documented By: Marlo Conner DO 05/26/24 1114 Addendum Signed By: <Electronically signed by Marlo Conner DO> 05/26/24 1114 Date of Service: 05/26/2024 Subjective Subjective Narrative: [...] body. Bruise on back on the left group home down. No significant edema. Normalwork of breathing. [...] seems like left exotropia but he switches [id number]-[id number] with dominant eye, unclear chronicity. A subtle [...] Therapy Recommendations: OT Recommendations OT Recommended Discharge Long Term Facility,Inpatient Rehab Unit Location PT Recommendations PT Recommended Discharge Long Term Facility,Inpatient Rehab Unit Location PT Recommended Services [...] 0947 Signed By: <Electronically signed by Marlo Conner DO> 05/26/24 0951 [facility] Work Phone: 1(854) 341-536003-15-2025 Progress note Author Dread Toney [facility] Note Date/Time May 26, 2024 10: 25am [facility] [address] [place], [place] [id number] Hospitalist Progress Note Signed Patient: Des Jacob MR#: [id number] 406 : 1940 Acct:[id number] Age/Sex: 83 / M Adm Date: 5 Loc: 3T Room: [address] [place] [address] Type: ADM INOo Attending Dr: Dread Toney [...] signed by Dread Toney DO> 05/26/24 1025 [facility] Work Phone: 1(970) 769-899603-15-2025 [place] [address] Neurology Progress Note Signed with Addenda Patient: Des Jacob MR#: [id number] 406 : 1940 Acct:[id number] Age/Sex: 83 / M Adm Date: 5 Loc: 3T Room: [address] [place] [address] Type: ADM INOo Attending Dr: Dread Toney [...] Addendum Documented By: Marlo Conner DO 05/26/24 1114 Addendum Signed By: 05/26/24 1114 Date of Service: 05/26/2024 Subjective Subjective Narrative: [...] body. Bruise on back on the left group home down. No significant edema. Normalwork of breathing. [...] seems like left exotropia but he switches smky-tzl-lspok with dominant eye, unclear chronicity. A subtle [...] Therapy Recommendations: OT Recommendations OT Recommended Discharge Long Term Facility,Inpatient Rehab Unit Location PT Recommendations PT Recommended Discharge Long Term Facility,Inpatient Rehab Unit Location PT Recommended Services [...] DO 5 0947 Signed By: 05/26/24 0951 [facility]03-15-2025 [place] [address] Hospitalist Progress Note Signed Patient: Des Jacob MR#: [id number] 406 : 1940 Acct:[id number] Age/Sex: 83 / M Adm Date: 5 Loc: Room: [address] [place] [address] Type: ADM INOo Attending Dr: Dread Toney [...] Dread Toney DO 05/26/24 1022 Signed By: 05/26/24 [facility]5 [facility]03-14-2025 Progress note Author Dread Toney [facility] Note Date/Time May 25, 2024 12: 37pm [facility] [address] [place] [address] Hospitalist Progress Note Signed Patient: Des Jacob MR#: [id number] 406 : 1940 Acct:[id number] Age/Sex: 83 / M Adm Date: 5 Loc: Room: [address] [place] [address] Type: ADM INOo Attending Dr: Dread Toney [...] signed by Dread Toney DO> 05/25/24 1237 [facility] Work Phone: 1(943) 959-531403-14-2025 Consult note Author Shamar Mcclain [facility] Note Date/Time May 25, 2024 11: 32am [facility] [address] [place] [address] Physiatry (Rehab) Consult Note Signed Patient: Des Jacob MR#: [id number] 406 : 1940 Acct:[id number] Age/Sex: 83 / M Adm Date: 5 Loc: Room: [address] [place] [address] Type: ADM INOo Attending Dr: Dread Toney DO Copies to: DO Shamar Roblero MD Shawn J Warner, DO~ Etiologic Dx/Impairment Group Narrative Narrative: Failure to thrive HPI Consult Date: 05/25/24 Requesting Physician: Derad Toney DO Primary Care Provider: Phani Ambrocio [...] negative unless noted below or in HPI [facility] Medical History Sleep apnea Uses C-pap Whooping [...] chart, including current orders, allied health and lifestyle consultant notes, labs/imaging and performed wall elements of exam and I formulated the plan of care and facilitated the medical decision making. I completed a substantive portion of this encounter, the medical decision makingportion of this note in its entirety, including Allied health note review, nursing note review, lifestyle consultant note review, discussion with nursing and case management, and more than 50% of my time was spent on counseling and coordination of care, time spent 35 minutes Documented By: Shamar Mcclain MD 05/25/24 1125 Signed By: <Electronically signed by Shamar Mcclain MD> 05/25/24 1131 [facility] Work Phone: 1(173) 169-125003-14-2025 [place] [address] Hospitalist Progress Note Signed Patient: Des Jacob MR#: [id number] 406 : 1940 Acct:[id number] Age/Sex: 83 / M Adm Date: 5 Loc: 3T Room: [address] [place] [address] Type: ADM INOo Attending Dr: Dread Toney [...] DO 05/25/24 1234 Signed By: 05/25/24 1237 [facility]03-14-2025 [place] [address] Physiatry (Rehab) Consult Note Signed Patient: Des Jacob MR#: [id number] 406 : 1940 Acct:[id number] Age/Sex: 83 / M Adm Date: 5 Loc: Room: [address] [place] [address] Type: ADM INOo Attending Dr: Dread Toney [...] negative unless noted below or in HPI [facility] Medical History Sleep apnea Uses C-pap Whooping [...] chart, including current orders, allied health and lifestyle consultant notes, labs/imaging and performed wall elements of exam and I formulated the plan of care and facilitated the medical decision making. I completed a substantive portion of this encounter, the medical decision makingportion of this note in its entirety, including Allied health note review, nursing note review, lifestyle consultant note review,discussion with nursing and case management, and more than 50% of my time was spent on counseling and coordination of care, time spent 35 minutes Documented By: Shamar Mcclain MD 05/25/241124 Signed By: 05/25/24 1132 [facility]03-13-2025 Progress note Author Prashant Garcia [facility] Note Date/Time May 24, 2024 3:1 2pm [facility] [address] [place] [address] Neurology Progress Note Signed Patient: Des Jacob MR#: [id number] 406 : 1940 Acct:[id number] Age/Sex: 83 / M Adm Date: 5 Loc: Room: [address] [place] [address] Type: ADM INOo Attending Dr: Dread Toney [...] body. Bruise on back on the left group home down. No significant edema. Normalwork of breathing. [...] seems like left exotropia but he switches mxdf-kjp-tnopw with dominant eye, unclear chronicity. A subtle [...] <Electronically signed by Prashant Garcia DO> 05/24/24 1512 [facility] Work Phone: 1(765) 661-592003-13-2025 [place] [address] Neurology Progress Note Signed Patient: Des Jacob MR#: [id number] 406 : 1940 Acct:[id number] Age/Sex: 83 / M Adm Date: 5 Loc: Room: [address] [place] [address] Type: ADM INOo Attending Dr: Dread Toney [...] body. Bruise on back on the left group home down. No significant edema. Normalwork of breathing. [...] seems like left exotropia but he switches xqwh-fgi-rrxgy with dominant eye, unclear chronicity. A subtle [...] DO 05/24/24 1140 Signed By: 05/24/24 1512 [facility]03-13-2025 Progress note Author Dread Toney [facility] Note Date/Time May 24, 2024 12: 15pm [facility] [address] [place] [address] Hospitalist Progress Note Signed Patient: Des Jacob MR#: [id number] 406 : 1940 Acct:[id number] Age/Sex: 83 / M Adm Date: 5 Loc: 3T Room: [address] [place] [address] Type: ADM INOo Attending Dr: Dread Toney [...] signed by Dread Toney DO> 05/24/24 1215 [facility] Work Phone: 1(652) 469-647103-13-[address] [address] Hospitalist Progress Note Signed Patient: Des Jacob MR#: [id number] 406 : 1940 Acct:[id number] Age/Sex: 83 / M Adm Date: 5 Loc: 3T Room: [address] [place] [address] Type: ADM INOo Attending Dr: Dread Toney [...] DO 05/24/24 1203 Signed By: 05/24/24 1215 [facility]03-12-2025 Consult note Author Prashant Garcia [facility] Note Date/Time May 23, 2024 6:2 5pm [facility] [address] [place] [address] Neurology Consult Note Signed Patient: Des Jacob MR#: [id number] 406 : 1940 Acct:[id number] Age/Sex: 83 / M Adm Date: 5 Loc: 3T Room: [address] [place] [address] Type: ADM INOo Attending Dr: Dread Toney DO Copies to: DO Phani Heller DO Shawn J Warner, DO~ HPI Consult Date: 05/23/24 Punch Card Operator: Prashant Garcia DO [facility] Medical History (Updated 05/23/24 @ 16:03 by [...] Clarke Jr., D.O.05/23/2024 9:03 AM Dictation Location: [facility] 05/23/24 08:12 IMPRESSION: NO ACUTE INTRACRANIAL ABNORMALITY. MILD/MODERATE CHRONIC MICROVASCULAR CHANGES AND CENTRAL INVOLUTIONAL CHANGE. Impression dictated by: Romero Guerin M.D.05/23/2024 8:58 AM Dictation Location: [facility]-23 Assessment/Plan (1) Recurrent falls: (2) Declining functional [...] body. Bruise on back on the left group home down. No significant edema. Normalwork of breathing. [...] seems like left exotropia but he switches waou-qva-xepwr with dominant eye, unclear chronicity. A subtle [...] contrast Documented By: Prashant Garcia DO 05/23/24 9981 Signed By: <Electronically signed by Prashant Garcia DO> 05/23/24 7828 [facility] Work Phone: 1(873) 618-548103-12-2025 [place] [address] Neurology Consult Note Signed Patient: Des Jacob MR#: [id number] 406 : 1940 Acct:[id number] Age/Sex: 83 / M Adm Date: 5 Loc: 3T Room: [address] [place] [address] Type: ADM INOo Attending Dr: Dread Toney DO Copies to: DO Phani Heller DO Shawn J Warner, DO~ HPI Consult Date: 05/23/24 Punch Card Operator: Prashant Garcia DO [facility] Medical History (Updated 05/23/24 @ 16:03 by [...] ACUTE FINDINGS Impression dictated by: Shamar Clarke Jr. DDenisa05/23/2024 9:03 AM Dictation Location: [facility] NETWORK-[address] 05/23/24 08:12 IMPRESSION: NO ACUTE INTRACRANIAL ABNORMALITY. MILD/MODERATE CHRONIC MICROVASCULAR CHANGES AND CENTRAL INVOLUTIONAL CHANGE. Impression dictated by: Romero Guerin M.D.05/23/2024 8:58 AM Dictation Location: [place] [address] Assessment/Plan (1) Recurrent falls: (2) Declining functional [...] body. Bruise on back on the left group home down. No significant edema. Normalwork of breathing. [...] seems like left exotropia but he switches qfpr-unr-woqmt with dominant eye, unclear chronicity. A subtle [...] contrast Documented By: Prashant Garcia DO 05/23/24 4047 Signed By: 05/23/24 1285 [facility]03-12-2025 History and physical note Author Dread Toney [facility] Note Date/Time May 23, 2024 3:4 6pm [facility] ENTER [address] [place] [address] Hospitalist H&P Signed Patient: Des Jacob MR#: [id number] 406 : 1940 Acct:[id number] Age/Sex: 83 / M Adm Date: 5 Loc: ER Room: Type: [facility] ER Attending Dr: Copies to: Elenita Munoz, DO Phani Ambrocio,DO Dread Toney DO~ HPI DATE OF EXAMINATION: 05/23/24 CHIEF COMPLAINT: falls HISTORY OF PRESENT ILLNESS: Mr Cecil male with a past medical history of [...] of Systems Unobtainable due to mental status [facility] Medical History (Updated 05/23/24 @ 15:43 by [...] % (Auto) 16.5 % (.) 05/23/24 05:10 [place] % (Auto) 9.4 % (.) 05/23/24 05:10 Eos % (Auto) 2.4 % (.) 05/23/24 05:10 Baso % (Auto) 0.4 % (.) 05/23/24 05:10 Nucleat RBC Rel Count 0.0 /100 WBC (0-0.5) 05/23/24 05:10 Neut # (Auto) 5.7 x10E3/uL (1.8-7.7) 05/23/24 05:10 Lymph # (Auto) 1.3 x10E3/uL (1.00-4.8) 05/23/24 05:10 [place] # (Auto) 0.8 x10E3/uL (0.0-0.8) 05/23/24 05:10 [...] pH 5.5 (5.0-9.0) 05/23/24 08:00 Ur Specific [place] 1.029 (1.001-1.030) 05/23/24 08:00 Urine Protein 70 [...] <Electronically signed by Dread Toney DO> 05/23/24 1260 [facility] Work Phone: 1(868) 422-408003-12-2025 [place] [address] Hospitalist H&P Signed Patient: Des Jacob MR#: [id number] 406 : 1940 Acct:[id number] Age/Sex: 83 / M Adm Date: 5 Loc: ER Room: Type: [facility] ER Attending Dr: Copies to: DO Phani Torrez,DO Dread Toney DO~ HPI DATE OF EXAMINATION: [...] of Systems Unobtainable due to mental status [facility] Medical History (Updated 05/23/24 @ 15:43 by [...] % (Auto) 16.5 % (.) 05/23/24 05:10 [place] % (Auto) 9.4 % (.) 05/23/24 05:10 Eos % (Auto) 2.4 % (.) 05/23/24 05:10 Baso % (Auto) 0.4 % (.) 05/23/24 05:10 Nucleat RBC Rel Count 0.0 /100 WBC (0-0.5) 05/23/24 05:10 Neut # (Auto) 5.7 x10E3/uL (1.8-7.7) 05/23/24 05:10 Lymph # (Auto) 1.3 x10E3/uL (1.00-4.8) 05/23/24 05:10 [place] # (Auto) 0.8 x10E3/uL (0.0-0.8) 05/23/24 05:10 [...] pH 5.5 (5.0-9.0) 05/23/24 08:00 Ur Specific [place] 1.029 (1.001-1.030) 05/23/24 08:00 Urine Protein 70 [...] DO 05/23/24 1537 Signed By: 05/23/24 1546 [facility]03-12-2025 Evaluation note* Diagnosis Onset Date Resolution Status Admit Date Declining functional status acute May 23, 2024 1:00pm Hypertension acute May 23, 2024 1:00pm Recurrent falls acute May 1:00pm Tremor acute May 23 1:00pm Weakness acute May 23 1:00pm [facility] Work Phone: 1(783) 993-318303-12-2025 Evaluation note* Diagnosis Onset Date Resolution Status Admit Date Declining functional status acute May 23, 2024 1:00pm Dementia acute May 23 1:00pm Hypertension acute May 23, 2024 1:00pm Obstructive sleep apnea acute M 2024 1:00pm Orthostatic hypotension acute M 2024 1:00pm Recurrent falls acute May 1:00pm Weakness acute May 23 1:00pm Tremor inactive May 23 1:00pm [facility] Work Phone: 1(875) 159-886603-12-2025 [facility] [place] [address] [place] [address] CT Scan Report Signed Patient: Des Jacob MR#: [id number] 406 : 1940 Acct:[id number] Age/Sex: 83 / M ADM Date: 5 Loc: ER Room: Type: [facility] ER Attending Dr: Copies to: Elenita Munoz DO~ Ordering Provider: Elenita Munoz DO Date of [...] or CT evidence of large vascular stroke. Wjef-hp-xoyhdycw central involutional changes and chronic small vessel ischemic disease. Intracranial vascular calcifications. Visualized intraorbital contents appear unremarkable. Visualized paranasal sinuses are clear. Right frontal scalp soft tissue swelling. No calvarial fracture. CT/CT head/brain wo con IMPRESSION: NO ACUTE INTRACRANIAL ABNORMALITY. MILD/MODERATE CHRONIC MICROVASCULAR CHANGES AND CENTRAL INVOLUTIONAL CHANGE. Impression dictated by: Romero Guerin M.D.05/23/2024 8:58 AM Dictation Location: RADIO--23 Transcribed By: APOLINAR 05/23/24857 Dictated By: Romero Guerin MD 05/23/24854 Signed By: 05/23/24857 [facility] Work Phone: 1(182) 730-921903-07-2025 Radiology Diagnostic study [facility] Main [place] [address] [place] [address] CT Scan Report Signed Patient: Des Jacob MR#: [id number] 406 : 1940 Acct:[id number] Age/Sex: 83 / M ADM Date: 5 Loc: ER Room: Type: [facility] ER Attending Dr: Copies to: Floyd Moseley [...] Aurelia Michael M.D.05/18/2024 5:47 PM Dictation Location: RADIO--02 Transcribed By: APOLINAR 05/18/241746 Dictated By: Aurelia Michael MD 05/18/241742 Signed By: 05/18/241746 [facility] Work Phone: 1([phone]) 543-601503-06-2025 History of Present illness Narrative* Checo Baeza [...] Seborrheic keratosis, inflamed Right Ankle - Anterior [place] and brown stuck on verrucous scaly papule [...] limited to risks of scarring, darker or lozenge dough mixer pigmentary changes, recurrence, incomplete removal and infection. [...] - Anterior 3. Actinic keratosis (3) Left [place], Right Parotid Area, Right Temporal Scalp Erythematous [...] limited to risks of scarring, darker or lozenge dough mixer pigmentary changes, recurrence, incomplete removal and infection. [...] or tenderness Cryotherapy, skin lesion - Left [place], Right Parotid Area, Right Temporal Scalp 4. Herpes zoster without complication Right Arm Grouped vesicles and erosions in a dermatomal distribution Recommend Valtrex 1 gm TID x 7 days. Notify office if worsening despite treatment. Related Medications valACYclovir (Valtrex) 1 g tablet Take 1 tablet, by mouth, three times a day x 7 days Next Visit: 1 year documented in this encounterOzarks Medical [id number] History of Present illness Narrative* Phani Ambrocio, [...] (benign prostatic hyperplasia) CAD (coronary artery disease) ([facility]) Hearing loss HTN (hypertension) ([facility]) Insomnia Type 2 diabetes mellitus ([facility]) SURGICAL HISTORY: Past Surgical History: Procedure Laterality [...] Dictated and not read. documented in this encounterOzarks Medical [id number] History of Present illness Narrative* Kristofer Ortega [...] Aricept managed by PCP. Kristofer Ortega MD, [facility] Review of Systems All other systems [...] type, unspecified whether angina present, unspecified whether eastern shoshone or transplanted heart Follow Up In Cardiology 2. Status post coronary angioplasty 3. Hyperlipidemia, unspecified hyperlipidemia type 4. Type 2 diabetes mellitus without complication, unspecified whether residential insulin use (Multi) 5. Sleep apnea, unspecified [...] my direction and personally dictated by me. Ihave reviewed the chart and agree that the record accurately reflects my personal performance of the history, physical exam, discussion and plan. [facility] Work Phone: 1(373) 714-243105-20-2024 Instructions* Patient Instructions* Thi Smith LPN - [...] dietary changes. 6 months documented [facility]Reg[facility] Work Phone: 1(143) 468-307808-17-2023 Evaluation note* Encounter Date Diagnosis Assessment Notes Treatment Notes Treatment Clinical Notes Oct, Obstructive sleep apnea (ICD-10 - G47.33) Fortunately, the patient is using and benefiting from treatment. Download was reviewed with patient, Current pressure is controlling apnea well, And we will make no changes at this time. A prescription was sent to the [facility] for new supplies throughout the year. He [...] in a timely fashion. Do not smoke. [facility] Other 11-04-2021 Evaluation note* Encounter Date Diagnosis Assessment Notes Treatment Notes Treatment Clinical Notes Jan, Encounter for immunization (ICD-10 - Z23) Patient presents for COVID-19 vaccination BOOSTER. Pre-screening form answers evaluated with patient. Patient denies current illness or allergic reaction to component of COVID-19 vaccine. Patient provided with current copy of EUA. [facility] Other Consult note Author Prashant Garcia [facility] Note Date/Time May 23, 2024 6:2 5pm [facility] ENTER [address] [place] [address] Neurology Consult Note Signed Patient: Des Jacob MR#: [id number] 406 : 1940 Acct:[id number] Age/Sex: 83 / M Adm Date: 5 Loc: Room: [address] [place] [address] Type: ADM INOo Attending Dr: Dread Toney DO Copies to: DO Phani Heller DO Shawn J Warner, DO~ HPI Consult Date: 05/23/24 Punch Card Operator: Prashant Garcia DO [facility] Medical History (Updated 05/23/24 @ 16:03 by [...] Clarke Jr., DDenisa05/23/2024 9:03 AM Dictation Location: [place] [address] 05/23/24 08:12 IMPRESSION: NO ACUTE INTRACRANIAL ABNORMALITY. MILD/MODERATE CHRONIC MICROVASCULAR CHANGES AND CENTRAL INVOLUTIONAL CHANGE. Impression dictated by: Romero Guerin M.D.05/23/2024 8:58 AM Dictation Location: [place] [address] Assessment/Plan (1) Recurrent falls: (2) Declining functional [...] body. Bruise on back on the left group home down. No significant edema. Normalwork of breathing. [...] seems like left exotropia but he switches [id number]-[id number] with dominant eye, unclear chronicity. A subtle [...] contrast Documented By: Prashant Garcia DO 05/23/24 1807 Signed By: <Electronically signed by Prashant Garcia DO> 05/23/24 9966 [facility] [employer] Work Phone: Evaluation noteNo assessment information available [facility] Work Phone: Evaluation note* Diagnosis Atherosclerosis of coronary artery, unspecified vessel or lesion type, unspecified whether angina present, unspecified whether eastern shoshone or transplanted heart- Primary Status post coronary angioplasty Postsurgical percutaneous transluminal coronary angioplasty status Hyperlipidemia, unspecified hyperlipidemia type Type 2 diabetes mellitus without complication, unspecified whether intermodal dispatcher insulin use (Multi) Sleep apnea, unspecified type Former smoker Personal history of tobacco use, presenting hazards to health Overweight (BMI 25.0-29.9) Overweight At risk for falls Personal history of fall documented in this encounter [facility] Work Phone: Evaluation note* Diagnosis Onset Date Resolution Status Obstructive sleep apnea acut e [facility] Work Phone: Evaluation note* Diagnosis Essential hypertension (CMS/HCC)- Primary Unspecified essential hypertension Type 2 diabetes mellitus with other specified complication, without long-term current use of insulin (CMS/HCC) Mixed hyperlipidemia (CMS/HCC) Mixed hyperlipidemia 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, unspecified vessel or [...] (CMS/HCC)- Primary documented in this encounter [facility]* Diagnosis Alteration of awareness- Primary Senile dementia, uncomplicated (CMS/HCC) Senile dementia, uncomplicated Memory loss documented in this encounter [facility] HealthcareHistory and physical note Author Dread Toney [facility] Note Date/Time May 23, 2024 3:4 6pm [facility] ENTER [address] [place] [address] Hospitalist H&P Signed Patient: Des Jacob MR#: [id number] 406 : 1940 Acct:[id number] Age/Sex: 83 / M Adm Date: 5 Loc: ER Room: Type: [facility] ER Attending Dr: Copies to: Elenita Munoz, DO Phani Ambrocio,DO Dread Toney, ~ HPI DATE OF EXAMINATION: 05/23/24 CHIEF COMPLAINT: [...] of Systems Unobtainable due to mental status [facility] Medical History (Updated 05/23/24 @ 15:43 by Dread Toney, DO) Sleep apnea Uses C-pap Whooping cough [...] % (Auto) 16.5 % (.) 05/23/24 05:10 [place] % (Auto) 9.4 % (.) 05/23/24 05:10 Eos % (Auto) 2.4 % (.) 05/23/24 05:10 Baso % (Auto) 0.4 % (.) 05/23/24 05:10 Nucleat RBC Rel Count 0.0 /100 WBC (0-0.5) 05/23/24 05:10 Neut # (Auto) 5.7 x10E3/uL (1.8-7.7) 05/23/24 05:10 Lymph # (Auto) 1.3 x10E3/uL (1.00-4.8) 05/23/24 05:10 [place] # (Auto) 0.8 x10E3/uL (0.0-0.8) 05/23/24 05:10 [...] pH 5.5 (5.0-9.0) 05/23/24 08:00 Ur Specific [place] 1.029 (1.001-1.030) 05/23/24 08:00 Urine Protein 70 [...] <Electronically signed by Dread Toney DO> 05/23/24 1547 [facility] Work Phone: History general Narrative - Reported* Type Description Date Medical History hyperlipidemia Medical History hypertension Medical History DM-2 Medical History CAD with old inferio r wall OK and multiple angioplasties Medical History mild LVH w/ mild diastolic dysfu nction Medical History obesity Medical History erectile dysfunction, 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 cataracts 2017 Surgical History angioplasty 2014 Surgical History colonoscopy - normal, but small hemorrhoids 07/2008 Surgical History EGD - small antral ulcer and ga stritis 05/2008 Surgical History CAD s/p angioplasty and stents of LAD in 2000, with diffuse disease in circumflex and right coronary artery of 20-30%, previous angioplasty 1993 2000 Hospitalization History see above [facility] Other Reason for referral (narrative)* Consultation (Routine) - Authorized Specialty Diagnoses / Procedures Referred By Contac t Referred To Contact Cardiology Diagnoses Atherosclerosis of coronary artery, unspecified vessel or lesion type, unspecified whether angina present, unspecified whether eastern shoshone or transplanted heart Procedures Follow Up In Cardiology Kristofer Ortega MD [address] [place] [address] 2, [address] [address] Kristofer Ortega MD [address] [place] [address] 2, [address] [address] Referral ID Status Reason Start Date Expiration Date V isits Requested Visits Authorized [id number] Authorized 08/01/2023 07/31/2024 1 1 [facility] Work Phone: Summary Purpose Family History Unknown Family Member Name Dates Details Family [...] mother Unknown Multiple sclerosis Unknown Advance Directives Advance Directive Response Recorded Date/ Time Advance [...] managed by PCP. * Kristofer Ortega MD, [facility] Chief Complaint and Reason for Visit [...] section and content) DATE CREATED AUTHOR 02/07/2018 [facility] Healthcare DATE CREATED AUTHOR AUTHOR'S ORGANIZ ATION 05/22/2021 [facility] dical Specialist DATE CREATED AUTHOR AUTHOR'S ORGANIZ ATION 05/28/2022 [facility] DATE CREATED AUTHOR AUTHOR'S ORGANIZ ATION 12/03/2022 [facility] ical Center DATE CREATED AUTHOR AUTHOR'S ORGANIZ ATION 12/03/2022 [facility] DATE CREATED AUTHOR AUTHOR'S ORGANIZ ATION 02/26/2024 [facility] DATE CREATED AUTHOR AUTHOR'S ORGANIZ ATION 05/19/2024 [facility] dical Specialists EPIC DATE CREATED AUTHOR AUTHOR'S ORGANIZ ATION 06/06/2024 [facility] ys[facility] Group REASON FOR VISIT (unrecogniz ed section and content) Reason Comments Follow-up 6 month Reason Comments 6 mos. follow up Pt is being seen tocarlito mack for 6 mos follow up and management of chronic conditions. Pt had lab work done in preparations for today's visit , results and recommendations will be reviewed today. Reason Comments Skin Check Reason Comments Hospital Follow-up Care Teams (unrecognized sec tion and content) Team Status: Inactive Member Role Status Dates Phani Ambrocio DO Primary Care Provider, Attending Daphney silva Active Team Status: Active Member Role Status Dates Phani Ambrocio DO Primary Care Provider Active Team Status: Inactive Member Role Status Dates Phani Ambrocio DO Primary Care Provider Active Flavio Lynch , RN MSN ANP-C Attending Provider Act chanell Blow Molder Relationship Specialty Start Date End Date Phani Ambrocio DO [address] [facility] [address] [place] [address] PCP - General 03/14/14 Team Status: Inactive [...] November 16, 2023 End: November 16, 2023 Blow Molder Relationship Specialty Start Date End Date Phani Ambrocio DO [address] [place] [address] PCP - ACO Reach 08/05/22 Phani Ambrocio DO [address] [place] [address] PCP - General Internal Medicine 08/26/22 Blow Molder Relationship Specialty Start Date End Date Phani Ambrocio DO [address] [place] [address] PCP - ACO Reach 08/05/22 Phani Ambrocio DO [address] [place] [address] PCP - General Internal Medicine 08/26/22 Blow Molder Relationship Specialty Start Date End Date Phani Ambrocio DO [address] [place] [address] PCP - ACO Reach 08/05/22 Phani Ambrocio DO [address] [place] [address] PCP - General Internal Medicine 08/26/22 Blow Molder Relationship Specialty Start Date End Date Phani Ambrocio DO [address] [place] [address] PCP - ACO Reach 08/05/22 Phani Ambrocio DO [address] [place] [address] PCP - General Internal Medicine 08/26/22 Blow Molder Relationship Specialty Start Date End Date Phani Ambrocio DO [address] [place] [address] PCP - ACO Reach 08/05/22 Phani Ambrocio DO [address] [place] [address] PCP - General Internal Medicine 08/26/22 Team [...] 23, 2024 End: May 28, 2024 Prashant Garcai DO Other Provider Active Start: May 23, 2024 End: May 28, 2024 Tawnya May MD Other Provider Active Start: [facility] 2024 End: May 28, 2024 Shamar Mcclain MD Other Provider Active Start: [facility] 2024 End: May 28, 2024 Gissell Giraldo APRN Other Provider Active St art: May 23, 2024 End: May 28, 2024 German Ngo Jr DO Other Provider Active S tart: May 23, 2024 End: May 28, 2024 Aubrey Eugene MD Other Provider Active Start: May 23, 2024 End: May 28, 2024 Team Status: Active Member Role Status Dates Phani Ambrocio DO Primary Care Provider Active Start: May 25, 2024 Elenita Munoz DO Emergency Provider Active Sta rt: May 25, 2024 Dread Toney , Admit Provider, Othe r Provider Active Start: May 25, 2024 Prashant Garcia DO Other Provider Active Start: May 25, 2024 Tawnya May MD Other Provider Active Start: [facility] 2024 Shamar Mcclain MD Attending Provider, Other Provider Active Start: May 25, 2024 Gissell Giraldo APRN Other Provider Active St art: May 25, 2024 German Ngo Jr DO Other Provider Active S tart: May 25, 2024 Aubrey Eugene MD Other Provider Active Start: May 25, 2024 Blow Molder Relationship Specialty Start Date End Date Phani Ambrocio DO [address] [place] [address] PCP - ACO Reach 08/05/22 Phani Ambrocio DO [address] [place] [address] PCP - General Internal Medicine 08/26/22 Sri Aguiar, SEDA Registered Nurse Family Medicine 05/22/24 Blow Molder Relationship Specialty Start Date End Date Phani Ambrocio DO [address] [place] [address] PCP - ACO Reach 08/05/22 Phani Ambrocio DO [address] [place] [address] PCP - General Internal Medicine 08/26/22 Goals (unrecognized section and content) Goals may [...] BE BASED ON THE PRIMARY CLINICAL RECORDS. [employer] [facility]. provides no warranty or guarantee of the accuracy or completeness of information in this document.
[2024-06-28 09:58] LABS: ABG PCO2 32.4 mmHg (35.0-45.0); Allen Test POSITIVE (POSITIVE); Base Excess ABG -2.2 mmol/L (-2.0-2.0); HCO3 ABG 21.9 mmol/L (22.0-26.0); O2 Mode RA; Oxygen Saturation ABG 95.6 %; PO2 ABG 78.6 mmHg (80.0-100.0); Puncture Site R RAD; pH ABG 7.439 (7.350-7.450)
[2024-06-28 10:21] LABS: Basophils Percent Auto 0.4 % (0.2-2.0); Eosinophils Absolute Auto 0.2 10^3/uL (0.0-0.7); Eosinophils Percent Auto 2.4 % (0.9-7.0); Hematocrit 37.8 % (42.0-54.0); Hemoglobin 12.4 g/dL (14.0-18.0); Immature Granulocytes Abs Auto 0.02 10^3/uL (0.00-0.03); Immature Granulocytes Pct Auto 0.3 % (0.0-0.5); Lymphocytes Absolute Auto 1.3 10^3/uL (1.2-3.8); Lymphocytes Percent Auto 17.6 % (20.5-60.0); Mean Corpuscular HGB Conc 32.8 g/dL (29.9-35.2); Mean Corpuscular Hemoglobin 30.7 pg (25.9-34.0); Mean Corpuscular Volume 93.6 fL (80.0-94.0); Mean Platelet Volume 10.6 fL (9.5-13.5); Monocytes Absolute Auto 0.8 10^3/uL (0.3-0.8); Monocytes Percent Auto 10.6 % (1.7-12.0); Neutrophils Absolute Auto 5.1 10^3/uL (1.4-6.5); Neutrophils Percent Auto 68.7 % (43.0-75.0); Platelet Count 318 10^3/uL (150-450); Red Blood Count 4.04 10^6/uL (4.70-6.10); Red Cell Distribution Width 14.6 % (11.0-15.0); White Blood Count 7.4 10^3/uL (4.0-11.0)
[2024-06-28 11:09] LABS: Alanine Aminotransferase 34 U/L (16-63); Albumin Globulin Ratio 0.8; Alkaline Phosphatase 144 U/L (46-116); Anion Gap 13.6; Aspartate Amino Transferase 27 U/L (15-37); BUN Creatinine Ratio 25.6; Bilirubin Total 1.1 mg/dL (0.2-1.0); Calcium 8.9 mg/dL (8.5-10.1); Carbon Dioxide 25.2 mmol/L (21.0-32.0); Chloride 114 mmol/L (98-107); Estimated GFR (African America >60 (>=60 mL/min/1.73m^2); Estimated GFR (Non-African Ame 55 (>=60 mL/min/1.73m^2); Globulin 3.8 g/dL; Glucose 187 mg/dL (74-106); Potassium 3.8 mmol/L (3.5-5.1); Sodium 149 mmol/L (136-145); Total Protein 6.8 g/dL (6.4-8.2)
== END 2024-06-28 09:30 | disposition home or self-care (01) ==
LOC: LAB 09:37
PROVIDERS: PCP Family Medicine; Visit Provider Physician Assistant Medical
DX: R41.3 Other amnesia (principal); R41.9 Unspecified symptoms and signs involving cognitive functions and awareness; F03.90 Unspecified dementia, unspecified severity, without behavioral disturbance, psychotic disturbance, mood disturbance, and anxiety
CPT/HCPCS: 36415; 36600; 80053; 82805; 85025

== ENCOUNTER 2024-08-02 20:49 | Emergency (ER) | payer MEDICARE, BC, SELFPAY ==
--- OUTSIDE RECORDS SUMMARY | 2024-07-02 14:36 | XMS_ITS ---
Author Name Auto Generated Organization OHIP Care Team Providers Care A&P Mechanic Name Role Phone MATTIE ORTEGA Attending Unavailable PRASAD AMBROCIO Primary Care Unavailable MATTIE ORTEGA Referring Unavailable PRASAD AMBROCIO Attending Unavailable CHECO RIDLEY Attending Unavailable ANA LUISA LONG Attending Unavailable CHECO RIDLEY Attending Unavailable PRASAD AMBROCIO Attending Unavailable PRASAD AMBROCIO Referring Unavailable Prasad Ambrocio Admitting Unavailable Prasad Ambrocio Primary Care Unavailable Prasad Ambrocio Attending Unavailable Prasad Ambrocio Primary Care Unavailable Dread Toney Admitting Unavailable Dread Toney Attending Unavailable Prashant Garcia Consulting Unavailable Tawnya May Consulting Unavailable Shamar Mcclain Consulting Unavailable Gissell Giraldo Consulting Unavailable German Ngo Jr Consulting UnavailAubrey Aguilar Consulting Unavaila Floyd Gruber Admitting Unavailable Floyd Miranda Attending Unavailable Prasad Ambrocio Primary Care Unavailable Prasad Ambrocio Primary Care Unavailable Prasad Ambrocio Attending Unavailable Prasad Ambrocio Admitting Unavailable Prasad Ambrocio Primary Care Unavailable Prasad Ambrocio Attending Unavailable Prasad Ambrocio Admitting Unavailable PROBLEMS DATE TYPE CONDITION / CODE ATTENDING STATUS [facility] 05/23/2024 Unknown Tremor, unspecif ied / R25.1(ICD-10) Dread Toney [facility] 05/23/2024 Unknown Weakness / R53.1(ICD-10) Dread Toney [facility] 05/23/2024 Unknown Essential (prima ry) hypertension / I10(ICD-10) Dread Toney [facility] 05/23/2024 Unknown Repeated falls / R29.6(ICD-10) Dread Toney [facility] 05/23/2024 Unknown Other malaise / R53.81(ICD-10) Dread Toney [facility] 05/23/2024 Unknown Obstructive slee p apnea (adult) (pediatric) / G47.33(ICD-10) Dread Toney [facility] 05/23/2024 Unknown Unspecified thais ntia, unspecified severity, without behavioral disturbance, psychotic disturbance, mood disturbance, and anxiety / F03.90(ICD-10) Dread Toney 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 PROCEDURES No Procedure Records Found RESULTS GLUCOSE POCT GLUCOMETERS Collected: 05/28/2024 11:16 AM Status: F Source: [facility] TYPE CODE TESTS RESULT OUT OF RANGE REFERENCE UNITS LAB GLUPOC Glucose Poc Glucometers 215 mg/dL Result Comment: Random Gluco se Reference Range is dependent on time and content of last meal. Glucose of more than 200 mg/dL in a nonstressed, ambulatory subject supports the diagnosis of Diabetes Mellitus. PERFORMED BY: [facility] [place] [address] PATHOLOGIST TRIMMING DEPARTMENT BLOCKER JOSUE DAMON M.D. Performed By: #### GLULS ### # Point of Care testing , GLUCOSE POCT GLUCOMETERS Collected: 05/28/2024 6:27 A M Status: F Source: [facility] TYPE CODE TESTS RESULT OUT OF RANGE REFERENCE UNITS LAB GLUPOC Glucose Poc Glucometers 127 mg/dL Result Comment: Random Gluco se Reference Range is dependent on time and content of last meal. Glucose of more than 200 mg/dL in a nonstressed, ambulatory subject supports the diagnosis of Diabetes Mellitus. PERFORMED BY: [facility] [address] [place] [address] PATHOLOGIST TRIMMING DEPARTMENT BLOCKER JOSUE DAMON M.D. Performed By: #### GLULS ### # Point of Care testing , HEMOGRAM CBC WITHOUT DIFF Collected: 05/28/2024 5:23 AM Status: F Source: [facility] TYPE CODE TESTS RESULT OUT OF RANGE REFERENCE UNITS LAB WBC White Blood Count 8.7 Normal 4.1-10.5 10*3/uL LAB RBC Red Blood Count 3.98 Normal 3.90-5.60 10*6/u L LAB HGB Hemoglobin 12.3 Low 13.0-17.0 g/dL LAB HCT Hematocrit 36.2 Low 38.8-50.0 % LAB MCV Mean Corpuscular Volume 91.0 Normal 83.5-101 fL LAB MCH Mean Corpuscular Hemoglobin 30.9 Normal 27.5-35.2 pg LAB MCHC Mean Corpuscular HGB Conc 33.9 Normal 32.5-35.6 g/dL LAB RDW Red Cell Distribution Width 14.1 Normal 12.0-14.8 % LAB PLT Platelet Count 221 Normal 150-450 10*3/uL LAB MPV Mean Platelet Volume 8.9 Normal 6.6-10.1 fL Result Comment: PERFORMED BY : [facility] [address] [place] [address] PATHOLOGIST TRIMMING DEPARTMENT BLOCKER JOSUE DAMON M.D. Performed By: #### CBCNO, BM P, MG #### [address] [address] [facility] BASIC METABOLIC PANEL Collected: 05/28/2024 5:23 AM Status: F Source: [facility] TYPE CODE TESTS RESULT OUT OF RANGE REFERENCE UNITS LAB GLU Glucose 126 High 70-100 mg/dL Result Comment: Random Gluco se Reference Range is dependent on time and content of last meal. Glucose of more than 200 mg/dL in a nonstressed, ambulatory subject supports the diagnosis of Diabetes Mellitus. ADA recommended reference range LAB BUN Blood Urea Nitrogen 24 Normal 7-25 mg/dL LAB CREATT Creatinine 0.90 Normal 0.70-1.30 mg/dL LAB GFReNR Estimated GFR >60.0 mL/Min LAB NA Sodium 139 Normal 136-145 mmol/L LAB K Potassium 4.2 Normal 3.5-5.1 mmol/L LAB CL Chloride 107 Normal 98-107 mmol/L LAB CO2 Carbon Dioxide 26.3 Normal 21.0-31.0 mmol/L LAB GAP Anion Gap 9.9 Normal 6.0-15.0 meq/L LAB CA Calcium 8.3 Low 8.6-10.3 mg/dL LAB CRCLPHA Creatinine Clr Calc Pharmacy 66.83 Performed By: #### CBCNO, BM P, MG #### [facility] [address] [place] [id number] [facility] MAGNESIUM Collected: 5:23 AM Status: F Source: [facility] TYPE CODE TESTS RESULT OUT OF RANGE REFERENCE UNITS LAB MG Magnesium 1.6 Low 1.9-2.7 mg/dL Result Comment: PERFORMED BY : [place] [id number] PATHOLOGIST TRIMMING DEPARTMENT BLOCKER JOSUE DAMON M.D. Performed By: #### CBCNO, BM P, MG #### [place] [id number] [facility] GLUCOSE POCT GLUCOMETERS Collected: 05/27/2024 9:07 P M Status: F Source: [facility] TYPE CODE TESTS RESULT OUT OF RANGE REFERENCE UNITS LAB GLUPOC Glucose Poc Glucometers 128 mg/dL Result Comment: Random Gluc ose Reference Range is dependent on time and content of last meal. Glucose of more than 200 mg/dL in a nonstressed, ambulatory subject supports the diagnosis of Diabetes Mellitus. LAB COMM1 Commemt1 Glu2: Cleaned Meter Result Comment: PERFORMED BY : [address] [place] [address] PATHOLOGIST TRIMMING DEPARTMENT BLOCKER JOSUE DAMON M.D. Performed By: #### GLULS ### # Point of Care testing , GLUCOSE POCT GLUCOMETERS Collected: 05/27/2024 4:28 P M Status: F Source: [facility] TYPE CODE TESTS RESULT OUT OF RANGE REFERENCE UNITS LAB GLUPOC Glucose Poc Glucometers 114 mg/dL Result Comment: Random Gluco se Reference Range is dependent on time and content of last meal. Glucose of more than 200 mg/dL in a nonstressed, ambulatory subject supports the diagnosis of Diabetes Mellitus. LAB COMM1 Commemt1 Glu2: Cleaned Meter Result Comment: PERFORMED BY : [address] [address] PATHOLOGIST TRIMMING DEPARTMENT BLOCKER JOSUE DAMON M.D. Performed By: #### GLULS ### # Point of Care testing , GLUCOSE POCT GLUCOMETERS Collected: 05/27/2024 12:07 PM Status: F Source: [facility] TYPE CODE TESTS RESULT OUT OF RANGE REFERENCE UNITS LAB GLUPOC Glucose Poc Glucometers 126 mg/dL Result Comment: Random Gluco se Reference Range is dependent on time and content of last meal. Glucose of more than 200 mg/dL in a nonstressed, ambulatory subject supports the diagnosis of Diabetes Mellitus. PERFORMED BY: [address] [address] PATHOLOGIST TRIMMING DEPARTMENT BLOCKER JOSUE DAMON M.D. Performed By: #### GLULS ### # Point of Care testing , GLUCOSE POCT GLUCOMETERS Collected: 05/27/2024 6:27 A M Status: F Source: [facility] TYPE CODE TESTS RESULT OUT OF RANGE REFERENCE UNITS LAB GLUPOC Glucose Poc Glucometers 135 mg/dL Result Comment: Random Gluco se Reference Range is dependent on time and content of last meal. Glucose of more than 200 mg/dL in a nonstressed, ambulatory subject supports the diagnosis of Diabetes Mellitus. PERFORMED BY: [address] [address] PATHOLOGIST TRIMMING DEPARTMENT BLOCKER JOSUE DAMON M.D. Performed By: #### GLULS ### # Point of Care testing , GLUCOSE POCT GLUCOMETERS Collected: 05/26/2024 8:23 P M Status: F Source: [facility] TYPE CODE TESTS RESULT OUT OF RANGE REFERENCE UNITS LAB GLUPOC Glucose Poc Glucometers 150 mg/dL Result Comment: Random Gluco se Reference Range is dependent on time and content of last meal. Glucose of more than 200 mg/dL in a nonstressed, ambulatory subject supports the diagnosis of Diabetes Mellitus. PERFORMED BY: [address] [address] PATHOLOGIST TRIMMING DEPARTMENT BLOCKER JOSUE DAMON M.D. Performed By: #### GLULS ### # Point of Care testing , GLUCOSE POCT GLUCOMETERS Collected: 05/26/2024 4:17 P M Status: F Source: [facility] TYPE CODE TESTS RESULT OUT OF RANGE REFERENCE UNITS LAB GLUPOC Glucose Poc Glucometers 140 mg/dL Result Comment: Random Gluco se Reference Range is dependent on time and content of last meal. Glucose of more than 200 mg/dL in a nonstressed, ambulatory subject supports the diagnosis of Diabetes Mellitus. PERFORMED BY: [address] [address] PATHOLOGIST TRIMMING DEPARTMENT BLOCKER JOSUE DAMON M.D. Performed By: #### GLULS ### # Point of Care testing , GLUCOSE POCT GLUCOMETERS Collected: 05/26/2024 12:22 PM Status: F Source: [facility] TYPE CODE TESTS RESULT OUT OF RANGE REFERENCE UNITS LAB GLUPOC Glucose Poc Glucometers 102 mg/dL Result Comment: Random Gluco se Reference Range is dependent on time and content of last meal. Glucose of more than 200 mg/dL in a nonstressed, ambulatory subject supports the diagnosis of Diabetes Mellitus. PERFORMED BY: [address] [address] PATHOLOGIST TRIMMING DEPARTMENT BLOCKER JOSUE DAMON M.D. Performed By: #### GLULS ### # Point of Care testing , MR HEAD/BRAIN WO CON Observed: 10:05 AM Status: COMPLETED Source: [facility] [place] [address] [place] [address] MRI Report Signed Patient: Des Simons MR#: [id number] : 1940 Acct:[id number] Age/Sex: 83 / M ADM Date: 05/23/24 Loc: 3T Room: [address] [place] [address] Type: ADM INOo Attending Dr: Dread Toney [...] No acute intracranial process. Impression dictated by: Prasad Owens M.D.05/26/2024 10:23 AM Dictation Location: [place] [address] Transcribed By: [facility] 05/26/24 1023 Dictated By: Prasad Owens DO 05/26/24 1005 Signed By: <Electronically signed by Prasad Owens DO in OV> 05/26/24 1023 GLUCOSE POCT GLUCOMETERS Collected: 05/26/2024 6:45 A M Status: F Source: [facility] TYPE CODE TESTS RESULT OUT OF RANGE REFERENCE UNITS LAB GLUPOC Glucose Poc Glucometers 120 mg/dL Result Comment: Random Gluco se Reference Range is dependent on time and content of last meal. Glucose of more than 200 mg/dL in a nonstressed, ambulatory subject supports the diagnosis of Diabetes Mellitus. PERFORMED BY: [address] [address] PATHOLOGIST TRIMMING DEPARTMENT BLOCKER JOSUE DAMON M.D. Performed By: #### GLULS ### # Point of Care testing , GLUCOSE POCT GLUCOMETERS Collected: 05/25/2024 8:34 P M Status: F Source: [facility] TYPE CODE TESTS RESULT OUT OF RANGE REFERENCE UNITS LAB GLUPOC Glucose Poc Glucometers 160 mg/dL Result Comment: Random Gluco se Reference Range is dependent on time and content of last meal. Glucose of more than 200 mg/dL in a nonstressed, ambulatory subject supports the diagnosis of Diabetes Mellitus. PERFORMED BY: [address] [address] PATHOLOGIST TRIMMING DEPARTMENT BLOCKER JOSUE DAMON M.D. Performed By: #### GLULS ### # Point of Care testing , GLUCOSE POCT GLUCOMETERS Collected: 05/25/2024 4:03 P M Status: F Source: [facility] TYPE CODE TESTS RESULT OUT OF RANGE REFERENCE UNITS LAB GLUPOC Glucose Poc Glucometers 190 mg/dL Result Comment: Random Gluco se Reference Range is dependent on time and content of last meal. Glucose of more than 200 mg/dL in a nonstressed, ambulatory subject supports the diagnosis of Diabetes Mellitus. PERFORMED BY: [address] [address] PATHOLOGIST TRIMMING DEPARTMENT BLOCKER JOSUE DAMON M.D. Performed By: #### GLULS ### # Point of Care testing , GLUCOSE POCT GLUCOMETERS Collected: 05/25/2024 11:18 AM Status: F Source: [facility] TYPE CODE TESTS RESULT OUT OF RANGE REFERENCE UNITS LAB GLUPOC Glucose Poc Glucometers 98 mg/dL Result Comment: Random Gluco se Reference Range is dependent on time and content of last meal. Glucose of more than 200 mg/dL in a nonstressed, ambulatory subject supports the diagnosis of Diabetes Mellitus. PERFORMED BY: [address] [address] PATHOLOGIST TRIMMING DEPARTMENT BLOCKER JOSUE DAMON M.D. Performed By: #### GLULS ### # Point of Care testing , GLUCOSE POCT GLUCOMETERS Collected: 05/25/2024 6:24 A M Status: F Source: [facility] TYPE CODE TESTS RESULT OUT OF RANGE REFERENCE UNITS LAB GLUPOC Glucose Poc Glucometers 126 mg/dL Result Comment: Random Gluco se Reference Range is dependent on time and content of last meal. Glucose of more than 200 mg/dL in a nonstressed, ambulatory subject supports the diagnosis of Diabetes Mellitus. LAB COMM1 Commemt1 Glu2: Cleaned Meter Result Comment: PERFORMED BY : [facility] [address] [place] [address] PATHOLOGIST TRIMMING DEPARTMENT BLOCKER JOSUE DAMON M.D. Performed By: #### GLULS ### # Point of Care testing , GLUCOSE POCT GLUCOMETERS Collected: 05/24/2024 9:25 P M Status: F Source: [facility] TYPE CODE TESTS RESULT OUT OF RANGE REFERENCE UNITS LAB GLUPOC Glucose Poc Glucometers 184 mg/dL Result Comment: Random Gluco se Reference Range is dependent on time and content of last meal. Glucose of more than 200 mg/dL in a nonstressed, ambulatory subject supports the diagnosis of Diabetes Mellitus. LAB COMM1 Commemt1 Glu2: Cleaned Meter Result Comment: PERFORMED BY : [facility] [address] [place] [address] PATHOLOGIST TRIMMING DEPARTMENT BLOCKER JOSUE DAMON M.D. Performed By: #### GLULS ### # Point of Care testing , COMPLETE BLOOD COUNT AUTO DIFF Collected: 05/24/2024 6:12 AM Status: F Source: F [facility] TYPE CODE TESTS RESULT OUT OF RANGE REFERENCE UNITS LAB WBC White Blood Count 7.6 Normal 4.1-10.5 10*3/uL LAB UNWBC Uncorrected WBC 7.6 Normal 4.1-10.5 10*3/uL LAB RBC Red Blood Count 4.24 Normal 3.90-5.60 10*6/u L LAB HGB Hemoglobin 13.2 Normal 13.0-17.0 g/dL LAB HCT Hematocrit 38.6 Low 38.8-50.0 % LAB MCV Mean Corpuscular Volume 90.9 Normal 83.5-101 fL LAB MCH Mean Corpuscular Hemoglobin 31.1 Normal 27.5-35.2 pg LAB MCHC Mean Corpuscular HGB Conc 34.2 Normal 32.5-35.6 g/dL LAB RDW Red Cell Distribution Width 14.3 Normal 12.0-14.8 % LAB PLT Platelet Count 194 Normal 150-450 10*3/uL LAB MPV Mean Platelet Volume 9.0 Normal 6.6-10.1 fL LAB NE% Neutrophils % (Auto) 70.4 . % LAB LY% Lymphocytes % (Auto) 19.2 . % LAB MO% Monocytes % (Auto) 9.0 . % LAB EO% Eosinophils % (Auto) 1.0 . % LAB BA% Basophils % (Auto) 0.4 . % LAB NRBC% NRBC% 0.1 Normal 0-0.5 /100{WBC} LAB NE# Neutrophils # (Auto) 5.3 Normal 1.8-7.7 10*3/uL LAB LY# Lymphocytes # (Auto) 1.4 Normal 1.00-4.8 10*3/uL LAB MO# Monocytes # (Auto) 0.7 Normal 0.0-0.8 10*3/uL LAB EO# Eosinophils # (Auto) 0.1 Normal 0.0-0.45 10*3/uL LAB BA# Basophils # (Auto) 0.0 Normal 0.0-0.2 10*3/uL Result Comment: PERFORMED BY : [place] [address] PATHOLOGIST TRIMMING DEPARTMENT BLOCKER JOSUE DAMON M.D. Performed By: #### A1C WTH e A, B12, MG, LIPID, TSH3, PHOS, BMP, CBC #### [facility] [address] [place] [address] BASIC METABOLIC PANEL Collected: 05/24/2024 6:12 AM Status: F Source: [facility] TYPE CODE TESTS RESULT OUT OF RANGE REFERENCE UNITS LAB GLU Glucose 138 High 70-100 mg/dL Result Comment: Random Gluco se Reference Range is dependent on time and content of last meal. Glucose of more than 200 mg/dL in a nonstressed, ambulatory subject supports the diagnosis of Diabetes Mellitus. ADA recommended reference range LAB BUN Blood Urea Nitrogen 18 Normal 7-25 mg/dL LAB CREATT Creatinine 0.92 Normal 0.70-1.30 mg/dL LAB GFReNR Estimated GFR >60.0 mL/Min LAB NA Sodium 140 Normal 136-145 mmol/L LAB K Potassium 3.8 Normal 3.5-5.1 mmol/L LAB CL Chloride 106 Normal 98-107 mmol/L LAB CO2 Carbon Dioxide 25.1 Normal 21.0-31.0 mmol/L LAB GAP Anion Gap 12.7 Normal 6.0-15.0 meq/L LAB CA Calcium 8.7 Normal 8.6-10.3 mg/dL LAB CRCLPHA Creatinine Clr Calc Pharmacy 64.34 Performed By: #### A1C WTH e A, B12, MG, LIPID, TSH3, PHOS, BMP, CBC #### [facility] [address] PHOSPHORUS Collected: 6:12 AM Status: F Source: [facility] TYPE CODE TESTS RESULT OUT OF RANGE REFERENCE UNITS LAB PHOS Phosphorus 3.3 Normal 2.5-4.5 mg/dL Performed By: #### A1C WTH e A, B12, MG, LIPID, TSH3, PHOS, BMP, CBC #### [facility] [address] MAGNESIUM Collected: 5 6:12 AM Status: F Source: [facility] TYPE CODE TESTS RESULT OUT OF RANGE REFERENCE UNITS LAB MG Magnesium 1.8 Low 1.9-2.7 mg/dL Performed By: #### A1C WTH e A, B12, MG, LIPID, TSH3, PHOS, BMP, CBC #### [facility] [address] LIPID PANEL Collected: 05/24/2024 6:12 AM Status: F Source: [facility] TYPE CODE TESTS RESULT OUT OF RANGE REFERENCE UNITS LAB CHOL Cholesterol 111 Low 140-200 mg/dL Result Comment: Chol less t cooley 200 mg/dl low risk Chol 201-239 mg/dl borderline risk Chol 240 mg/dl and greater high risk LAB HDL HDL Cholesterol 37 Normal 23-92 mg/dL Result Comment: HDL CHOL ATP -III CLASSIFICATION Cardiovascular Risk HDL > or equal to 60 mg/dL LOW HDL < 40 mg/dL HIGH LAB TRIG W REF Triglyceride w/Reflex 73 Normal 0-149 mg/dL Result Comment: TRIG ATP III CLASSIFICATION TRIG less than 150 mg/dL Normal TRIG 150-199 mg/dL Borderline high TRIG 200-500 mg/dL High TRIG greater than 500 mg/dL Very high Standard traceable to the Center for Disease Conrtrol and Prevention (CDC) test method. LAB LDLC LDL Cholesterol,Calc ulated 59 Normal 0-100 mg/dL Result Comment: LDL ATP III CLASSIFICATION LDL less than 100 mg/dL Optimal LDL 100-129 mg/dL Near or above optimal LDL 130-159 mg/dL Borderline high LDL 160-189 mg/dL High LDL greater than 189 mg/dL Very high LAB VLDL VLDL CHOLESTEROL 14 mg/dL LAB CHLHDL Chol/HDL Ratio 3.0 <5.0 Performed By: #### A1C WTH e A, B12, MG, LIPID, TSH3, PHOS, BMP, CBC #### [address] VITAMIN B12 Collected: 6:12 AM Status: F Source: [facility] TYPE CODE TESTS RESULT OUT OF RANGE REFERENCE UNITS LAB B12 Vitamin B12 298 Normal 180-914 pg/mL Performed By: #### A1C WTH e A, B12, MG, LIPID, TSH3, PHOS, BMP, CBC #### [facility] [address] [place], [place] [id number] [facility] THYROID STIMULATING HORMONE Collected: 05/24/2024 6:1 2 AM Status: F Source: [facility] TYPE CODE TESTS RESULT OUT OF RANGE REFERENCE UNITS LAB TSH3 Thyroid Stimulating Hormone 2.29 Normal 0.45-5.33 u[iU]/mL Result Comment: PERFORMED BY : [place] [address] PATHOLOGIST TRIMMING DEPARTMENT BLOCKER JOSUE DAMON M.D. Performed By: #### A1C WTH e A, B12, MG, LIPID, TSH3, PHOS, BMP, CBC #### [place] [id number] [facility] A1C WITH ESTIMATED AVERAGE GLU Collected: 05/24/2024 6:12 AM Status: F Source: [facility] TYPE CODE TESTS RESULT OUT OF RANGE REFERENCE UNITS LAB .A1C Hemoglobin A1C 6.4 High 4.3-5.6 % Result Comment: Increased ri sk for diabetes: 5.7 - 6.4 diabetes: >6.4 glycemic control for adults with diabetes: <7.0 LAB eAG Estimated Average Glucose 137 mg/dL Result Comment: PERFORMED BY : [place] [address] PATHOLOGIST TRIMMING DEPARTMENT BLOCKER JOSUE DAMON M.D. Performed By: #### A1C WTH e A, B12, MG, LIPID, TSH3, PHOS, BMP, CBC #### [facility] [address] [place] [address] AMMONIA Collected: 5 6:12 AM Status: F Source: [facility] TYPE CODE TESTS RESULT OUT OF RANGE REFERENCE UNITS LAB AMM Ammonia 18 Normal 11-35 umol/L Result Comment: PERFORMED BY : [place] [address] PATHOLOGIST TRIMMING DEPARTMENT BLOCKER JOSUE DAMON M.D. Performed By: #### SPE, MICH SERUM, RPR W RFX #### [facility] , #### AMM #### [facility] [address] [place] [address] IMMUNOFIXATION,SERUM Collected: 025 6:12 AM Status: F Source: [facility] TYPE CODE TESTS RESULT OUT OF RANGE REFERENCE UNITS LAB MICH SERUM. Immunofixation, Serum Comment Abnormal Alert . Result Comment: Immunofixati on shows IgG monoclonal protein with kappa light chain specificity.PLEASE NOTE: Samples from patients receiving DARZALEX(R) (daratumumab) or SARCLISA(R)(isatuximab-irfc) treatment can appear as an IgG kappa and mask a complete response (CR). If this patient is receiving these therapies, this MICH assay interference can be removed by ordering test number [id number]- Immunofixation, Daratumumab-Specific, Serum or [id number]- Immunofixation, Isatuximab-Specific, Serum and submitting a new sample for testing or by calling the lab to add this test to the current sample. Immunofixation shows IgM monoclonal protein with lambda light chain specificity. LAB IGG Immunoglobulin G 636 631-9272 mg/dL LAB IGA Immunoglobulin A, Serum 326 61-437 mg/dL LAB IGM Immunoglobulin M, Serum 83 15-143 mg/dL Result Comment: Performed at : [address] [id number] Pediatric Physician: Alex Tyler PhD, Phone: [phone] Performed By: #### SPE, MICH SERUM, RPR W RFX #### [facility] , #### AMM #### [address] PROTEIN ELECTROPHORESIS, SERUM Collecte d: 05/24/2024 6:12 AM Status: F Source: [facility] TYPE CODE TESTS RESULT OUT OF RANGE REFERENCE UNITS LAB SPETP Total Protein, Serum 6.3 6.0-8.5 g/dL LAB SPEALB Albumin, Serum 3.5 2.9-4.4 g/dL LAB SPEA1G Hitxb-6-Xrxf ulin 0.2 0.0-0.4 g/dL LAB SPEA2G Osrug-3-Htew ulin 0.9 0.4-1.0 g/dL LAB SPEBG Beta Globulin 1.0 0.7-1.3 g/dL LAB SPEGG Gamma Globulin 0.7 0.4-1.8 g/dL LAB SPEMS M-Alejandro Comment: Not Observed Result Comment: SPE shows as ymmetrical gamma. Suggest serum MICH and free light chain analysis for further evaluation. LAB SPEGLOB Globulin, Total 2.8 2.2-3.9 g/dL LAB SPEAG A/G Ratio 1.3 0.7-1.7 LAB SPENOTE SPE-Note Comment . Result Comment: Protein elec trophoresis scan will follow via computer, mail, or ortho nurse delivery. Performed at: [address] [id number] Pediatric Physician: Alex Tyler PhD, Phone: [phone] Performed By: #### SPE, MICH SERUM, RPR W RFX #### [facility] , #### AMM #### [address] RPR W/RFX TO QUANT TP ABS Collected: 6:12 AM Status: F Source: [facility] TYPE CODE TESTS RESULT OUT OF RANGE REFERENCE UNITS LAB RPRRESULT RPR, Rfx Quant RPR Non Reactive Non Reactive Result Comment: Performed at : - [facility] [id number] Pediatric Physician: Alex Tyler PhD, Phone: [phone] PERFORMED BY: [place] [address] PATHOLOGIST TRIMMING DEPARTMENT BLOCKER JOSUE DAMON M.D. Performed By: #### SPE, MICH SERUM, RPR W RFX #### [facility] , #### AMM #### [address] XR CHEST 1V PORTABLE Observed: 9:01 AM Status: COMPLETED Source: [facility] [place] [address] XRay Report Signed Patient: Des Simons MR#: [id number] : 1940 Acct:[id number] Age/Sex: 83 / M ADM Date: 05/23/24 Loc: ER Room: Type: [facility] ER Attending Dr: Copies to: DO [...] D.O.05/23/2024 9:03 AM Dictation Location: [facility] [address] Transcribed By: APOLINAR 05/23/24902 Dictated By: Shamar Clarke Jr, DO 05/23/24 Signed By: <Electronically signed by Shamar Clarke Jr, DO in OV> 05/23/[address] HEAD/BRAIN WO CON Observed: 8:55 AM Status: COMPLETED Source: [facility] [place] [address] CT Scan Report Signed Patient: Des Simons MR#: [id number] : 1940 Acct:[id number] Age/Sex: 83 / M ADM Date: 05/23/24 Loc: ER Room: Type: [facility] ER Attending Dr: Copies to: Elenita [...] or CT evidence of large vascular stroke. Hilr-ct-diinmhlp central involutional changes and chronic small vessel ischemic disease. Intracranial vascular calcifications. Visualized intraorbital contents appear unremarkable. Visualized paranasal sinuses are clear. Right frontal scalp soft tissue swelling. No calvarial fracture. CT/CT head/brain wo con IMPRESSION: NO ACUTE INTRACRANIAL ABNORMALITY. MILD/MODERATE CHRONIC MICROVASCULAR CHANGES AND CENTRAL INVOLUTIONAL CHANGE. Impression dictated by: Romero Guerin M.D.05/23/2024 8:58 AM Dictation Location: [place] [address] Transcribed By: [facility] 05/23/24857 Dictated By: Romero Guerin MD 05/23/24854 Signed By: <Electronically signed by Romero Guerin MD in OV> 05/23/24 0858 DIPSTICK AND MICROSCOPIC Collected: 02/2025 8:00 AM Status: F Source: [facility] Order Comment: Name Collecti on Type:: Clean-Voided Midstream TYPE CODE TESTS RESULT OUT OF RANGE REFERENCE UNITS LAB UCOL Color,Urine Yellow Yellow LAB UAPP Appearance,Ur ine Clear Clear LAB USG Specificy [place],Urine 1.029 Normal 1.001-1.030 LAB UPH pH,Urine 5.5 Normal 5.0-9.0 LAB ULE Leukocyte Esterase,Urin e Negative Negative LAB UNIT Nitrite,Urine Negative Negative LAB UPRO Protein,Urine 70 High Negative mg/dL LAB UGL Glucose,Urine (UA) 30 High Normal mg/dL LAB UKET Ketones,Urine Trace High Negative LAB UURO Urobilinogen, Urine 2 High Normal mg/dL LAB UBIL Bilirubin,Uri ne Negative Negative LAB UBLD Occult Blood,Urine Negative Negative Result Comment: PERFORMED BY : [place] [address] PATHOLOGIST TRIMMING DEPARTMENT BLOCKER JOSUE DAMON M.D. LAB URBC RBC,Urine 1-2 0-4 [HPF] LAB UWBC WBC,Urine 1-2 0-4 [HPF] LAB UBACT Bacteria,Urin e None Seen None Seen LAB UHYALC Hyaline Casts,Urine 0-8 0-8 [LPF] LAB UCCAST Cellular Casts,Urine 1-2 High None Seen [LPF] LAB MUCUS Mucus,Urine Rare Result Comment: PERFORMED BY : [place] [address] PATHOLOGIST TRIMMING DEPARTMENT BLOCKER JOSUE DAMON M.D. Performed By: #### ADDONUAPL #### [place] [id number] [facility] ECG 12 LEAD ECG Observed: 05/23/2024 5:14 AM Status: COMPLETED Source: [facility] [place] [address] Electrocardiograph Report Signed Patient: Des Simons MR#: [id number] : 1940 Acct:[id number] Age/Sex: 83 / M ADM Date: 05/23/24 Loc: Room: [address] [place] [address] Type: ADM INOo Attending Dr: Dread Toney [...] was found Confirmed by ELENITA MUNOZ DO ([id number]) on 05/23/2024 4:21:24 PM Referred By: Electronically Signed By: ELENITA MUNOZ DO Transcribed By: MUS Signed By Elenita Munoz DO 05/23 1621 COMPLETE BLOOD COUNT AUTO DIFF Collected: 05/23/2024 5:10 AM Status: F Source: [facility] TYPE CODE TESTS RESULT OUT OF RANGE REFERENCE UNITS LAB WBC White Blood Count 8.0 Normal 4.1-10.5 10*3/uL LAB UNWBC Uncorrected WBC 8.0 Normal 4.1-10.5 10*3/uL LAB RBC Red Blood Count 4.12 Normal 3.90-5.60 10*6/u L LAB HGB Hemoglobin 12.8 Low 13.0-17.0 g/dL LAB HCT Hematocrit 38.0 Low 38.8-50.0 % LAB MCV Mean Corpuscular Volume 92.2 Normal 83.5-101 fL LAB MCH Mean Corpuscular Hemoglobin 31.1 Normal 27.5-35.2 pg LAB MCHC Mean Corpuscular HGB Conc 33.7 Normal 32.5-35.6 g/dL LAB RDW Red Cell Distribution Width 14.2 Normal 12.0-14.8 % LAB PLT Platelet Count 172 Normal 150-450 10*3/uL LAB MPV Mean Platelet Volume 9.7 Normal 6.6-10.1 fL LAB NE% Neutrophils % (Auto) 71.3 . % LAB LY% Lymphocytes % (Auto) 16.5 . % LAB MO% Monocytes % (Auto) 9.4 . % LAB EO% Eosinophils % (Auto) 2.4 . % LAB BA% Basophils % (Auto) 0.4 . % LAB NRBC% NRBC% 0.0 Normal 0-0.5 /100{WBC} LAB NE# Neutrophils # (Auto) 5.7 Normal 1.8-7.7 10*3/uL LAB LY# Lymphocytes # (Auto) 1.3 Normal 1.00-4.8 10*3/uL LAB MO# Monocytes # (Auto) 0.8 Normal 0.0-0.8 10*3/uL LAB EO# Eosinophils # (Auto) 0.2 Normal 0.0-0.45 10*3/uL LAB BA# Basophils # (Auto) 0.0 Normal 0.0-0.2 10*3/uL Result Comment: PERFORMED BY : [facility] [address] [place] [address] PATHOLOGIST TRIMMING DEPARTMENT BLOCKER JOSUE DAMON M.D. Performed By: #### HS TROP, CMP, MG, CK, CBC #### [facility] [address] COMPREHENSIVE METABOLIC PANEL Collected: 05/23/2024 5 :10 AM Status: F Source: [facility] TYPE CODE TESTS RESULT OUT OF RANGE REFERENCE UNITS LAB GLU Glucose 156 High 70-100 mg/dL Result Comment: Random Gluco se Reference Range is dependent on time and content of last meal. Glucose of more than 200 mg/dL in a nonstressed, ambulatory subject supports the diagnosis of Diabetes Mellitus. ADA recommended reference range LAB BUN Blood Urea Nitrogen 30 High 7-25 mg/d L LAB CREATT Creatinine 1.17 Normal 0.70-1.30 mg/dL LAB GFReNR Estimated GFR >60.0 mL/Min LAB NA Sodium 139 Normal 136-145 mmol/L LAB K Potassium 4.1 Normal 3.5-5.1 mmol/L LAB CL Chloride 106 Normal 98-107 mmol/L LAB CO2 Carbon Dioxide 22.5 Normal 21.0-31.0 mmol/L LAB GAP Anion Gap 14.6 Normal 6.0-15.0 meq/L LAB CA Calcium 8.9 Normal 8.6-10.3 mg/dL LAB TP Total Protein 6.6 Normal 6.4-8.9 g/dL LAB ALB Albumin Level 3.8 Normal 3.5-5.7 g/dL LAB GLOB Globulin 2.8 g/dL LAB AGRATIO Albumin/Globulin Ratio 1.4 LAB BILIT Bilirubin,Total 1.2 High 0.3-1.0 mg/dL LAB AST Aspartate Amino Transferase 19 Normal 13-39 U/L LAB ALT Alanine Aminotransferase 12 Normal 7-52 U/L LAB ALP Alkaline Phosphatase 97 Normal 34-104 U/L LAB CRCLPHA Creatinine Clr C alc Pharmacy 52.16 Performed By: #### HS TROP, CMP, MG, CK, CBC #### [place] [id number] [facility] MAGNESIUM Collected: 5:10 AM Status: F Source: [facility] TYPE CODE TESTS RESULT OUT OF RANGE REFERENCE UNITS LAB MG Magnesium 1.7 Low 1.9-2.7 mg/dL Result Comment: PERFORMED BY : [place] [address] PATHOLOGIST TRIMMING DEPARTMENT BLOCKER JOSUE DAMON M.D. Performed By: #### HS TROP, CMP, MG, CK, CBC #### [address] CREATINE KINASE Collected: 05/23/2024 5:10 AM Status : F Source: [facility] TYPE CODE TESTS RESULT OUT OF RANGE REFERENCE UNITS LAB CK Creatine Kinase 114 Normal 30-223 U/L Performed By: #### HS TROP, CMP, MG, CK, CBC #### [address] TROPONIN I HIGH SENSITIVITY Collected: 05/23/2024 5:1 0 AM Status: F Source: [facility] TYPE CODE TESTS RESULT OUT OF RANGE REFERENCE UNITS LAB HS TROP Troponin I High Sensitivity 8 Normal 0-20 Result Comment: The Troponin units of report have been changed to meet the Chest Pain Accreditation requirement, element EC5.M1l2. Troponin units are changed from pg/ml to ng/L. Also, the decimal is removed and results are in whole numbers. PERFORMED BY: [place] [address] PATHOLOGIST TRIMMING DEPARTMENT BLOCKER JOSUE DAMON M.D. Performed By: #### HS TROP, CMP, MG, CK, CBC #### [place] [id number] [facility] VIT. B12/FOLATE PROFILE Collected: 05/12 5:10 AM Status: F Source: [facility] Order Comment: Comment add o n TYPE CODE TESTS RESULT OUT OF RANGE REFERENCE UNITS LAB B12 Vitamin B12 263 Normal 180-914 pg/mL LAB FOL Folate 11.0 >5.9 ng/mL Result Comment: Folate refer ence range: >5.9 ng/ml The WHO technical consultation on folate and vitamin b12 deficiencies has determined that folate concentrations less than 4 ng/ml are considered deficient. Performed By: #### [id number], [id number], TSH3 #### [place] [id number] [facility] THYROID STIMULATING HORMONE Collected: 05/23/2024 5:1 0 AM Status: F Source: [facility] Order Comment: Comment add o n TYPE CODE TESTS RESULT OUT OF RANGE REFERENCE UNITS LAB TSH3 Thyroid Stimulating Hormone 2.77 Normal 0.45-5.33 u[iU]/mL Performed By: #### [id number], [id number], TSH3 #### [address] [address] [facility] VITAMIN D 25 HYDROXY TOTAL Collected: 05/23/2024 5:10 AM Status: F Source: [facility] Order Comment: Comment add o n TYPE CODE TESTS RESULT OUT OF RANGE REFERENCE UNITS LAB [id number] Vitamin D 25 Hydroxy Total 20.7 Low 30-100 ng/mL Result Comment: VITAMIN D ST ATUS 25(OH)VITAMIN D RANGE (ng/mL) Deficient <20 Insufficient 20 to <30 Sufficient 30 to 100 Reference: Tammie MF,Osei NC, Silvestre BOLES, et al. Evaluation,treatment, and prevention of vitamin D deficiency; an Endocrine Society clinical practice guideline. JCEM. 2010; 96(7):1911-30. PERFORMED BY: [place] [id number] PATHOLOGIST TRIMMING DEPARTMENT BLOCKER JOSUE DAMON M.D. Performed By: #### [id number], [id number], TSH3 #### [place] [id number] [facility] DIPSTICK AND MICROSCOPIC Collected: 09/2024 7:49 PM Status: F Source: [facility] Order Comment: Name Collecti on Type:: Clean-Voided Midstream TYPE CODE TESTS RESULT OUT OF RANGE REFERENCE UNITS LAB UCOL Color,Urine Yellow Yellow LAB UAPP Appearance,Uri ne Clear Clear LAB USG Specificy [place],Urine 1.026 Normal 1.001-1.030 LAB UPH pH,Urine 5.5 Normal 5.0-9.0 LAB ULE Leukocyte Esterase,Urine Negative Negative LAB UNIT Nitrite,Urine Negative Negative LAB UPRO Protein,Urine 100 High Negative mg/dL LAB UGL Glucose,Urine (UA) Normal Normal LAB UKET Ketones,Urine 1+ High Negative LAB UURO Urobilinogen,U rine Normal Normal LAB UBIL Bilirubin,Urin e Negative Negative LAB UBLD Occult Blood,Urine Trace High Negative Result Comment: PERFORMED BY : [place] [address] PATHOLOGIST TRIMMING DEPARTMENT BLOCKER JOSUE DAMON M.D. LAB URBC RBC,Urine 1-2 0-4 [HPF] LAB UWBC WBC,Urine 3-4 0-4 [HPF] LAB USQEPI Squamous Epithelial Cell,Urine 1-2 0-2 [HPF] LAB UBACT Bacteria,Urine None Seen None Seen LAB UHYALC Hyaline Casts,Urine 0-8 0-8 [LPF] LAB MUCUS Mucus,Urine 1+ Abnormal Alert Result Comment: PERFORMED BY : [place] [id number] PATHOLOGIST TRIMMING DEPARTMENT BLOCKER JOSUE DAMON M.D. Performed By: #### ADDONUAPL #### [place] [id number] [place] XR CHEST 1V PORTABLE Observed: 7:41 PM Status: COMPLETED Source: [facility] [place] [id number] XRay Report Signed Patient: Des Simons MR#: [id number] : 1940 Acct:[id number] Age/Sex: 83 / M ADM Date: 05/18/24 Loc: ER Room: Type: REG ER Attending Dr: Copies to: Floyd Miranda MD Ordering Provider: Floyd Miranda MD Date of Service: 05/18/24 XR/XR chest [...] Aurelia Michael M.D.05/18/2024 7:44 PM Dictation Location: [place] [address] Transcribed By: [facility] 05/18/241943 Dictated By: Aurelia Michael MD 05/18/241940 Signed By: <Electronically signed by MD Aurelia Michael in OV> 05/18/241943 LACTIC ACID Collected: 6:22 PM Status: F Source: [facility] TYPE CODE TESTS RESULT OUT OF RANGE REFERENCE UNITS LAB LACTIC Lactic Acid 1.4 Normal 0.5-1.9 mmol/L Result Comment: Lactic Acid reference range has been updated to 0.5 ? 1.9 mmol/L and the critical range of 2.0 or greater. PERFORMED BY: [place] [address] PATHOLOGIST TRIMMING DEPARTMENT BLOCKER JOSUE DAMON M.D. Performed By: #### CK, TSH3, LACTIC, CBC, HS TROP, CMP, MG #### [facility] [address] [place] [address] GLUCOSE POCT GLUCOMETERS Collected: 05/18/2024 5:49 P M Status: F Source: [facility] TYPE CODE TESTS RESULT OUT OF RANGE REFERENCE UNITS LAB GLUPOC Glucose Poc Glucometers 115 mg/dL Result Comment: Random Gluco se Reference Range is dependent on time and content of last meal. Glucose of more than 200 mg/dL in a nonstressed, ambulatory subject supports the diagnosis of Diabetes Mellitus. LAB COMM1 Commemt1 Glu2: Cleaned Meter Result Comment: PERFORMED BY : [facility] [place] [address] PATHOLOGIST TRIMMING DEPARTMENT BLOCKER JOSUE DAMON M.D. Performed By: #### GLULS ### # Point of Care testing , COVID-19 / FLU A/B / RSV PCR Observed: 0 05/18/2024 5:47 PM Status: F Source: [facility] COVID-19 Cepheid Result Negative for SARS-CoV-2 RNA [...] or Cepheid Disclaimer revoked sooner. PERFORMED BY: [place] [address] PATHOLOGIST TRIMMING DEPARTMENT BLOCKER JOSUE DAMON M.D. Performed By: #### COVID19 F ANETTE RSV, CEPHEID NEG #### [address] CEPHEID COVID PCR NEGATIVE Collected: 0 05/18/2024 5:47 PM Status: F Source: [facility] TYPE CODE TESTS RESULT OUT OF RANGE REFERENCE UNITS LAB CEPHEID NEG Cepheid COVID PCR Negative Negative Negative Result Comment: This is a du plicate Cepheid Xpert Xpress CoV-2/Flu/RSV Plus RNA by RT-PCR result to be used for statistical tracking purpose only. PERFORMED BY: [place] [address] PATHOLOGIST TRIMMING DEPARTMENT BLOCKER JOSUE DAMON M.D. Performed By: #### COVID19 F ANETTE RSV, CEPHEID NEG #### [address] HEAD/BRAIN WO CON Observed: 5:43 PM Status: COMPLETED Source: [facility] [place] [address] CT Scan Report Signed Patient: Des Simons MR#: [id number] : 1940 Acct:[id number] Age/Sex: 83 / M ADM Date: 05/18/24 Loc: ER Room: Type: [facility] ER Attending Dr: Copies to: Floyd Miranda MD Ordering Provider: Floyd Miranda MD Date of Service: 05/18/24 CT/CT head/brain [...] Aurelia Michael M.D.05/18/2024 5:47 PM Dictation Location: [place] [address] Transcribed By: [facility] 05/18/241746 Dictated By: Aurelia Michael MD 05/18/241742 Signed By: <Electronically signed by MD Aurelia Michael in OV> 05/18/241746 ECG 12 LEAD ECG Observed: 05/18/2024 5:14 PM Status: COMPLETED Source: [facility] [place] [address] Electrocardiograph Report Signed Patient: Des Simons MR#: [id number] : 1940 Acct:[id number] Age/Sex: 83 / M ADM Date: 05/18/24 Loc: ER Room: Type: [facility] ER Attending Dr: Ordering Provider: Floyd Miranda MD Date of Service: 05/18/2410/05/1656 ECG/ECG 12 [...] significant change was found Confirmed by FLOYD MIRANDA MD ([id number]) on 05/19/2024 1:39:56 AM Referred By: Electronically Signed By: FLOYD MIRANDA MD Transcribed By: MUS Signed By Floyd Miranda MD 11/05 0139 COMPLETE BLOOD COUNT AUTO DIFF Collected: 05/18/2024 5:07 PM Status: F Source: [facility] TYPE CODE TESTS RESULT OUT OF RANGE REFERENCE UNITS LAB WBC White Blood Count 6.8 Normal 4.1-10.5 10*3/uL LAB UNWBC Uncorrected WBC 6.8 Normal 4.1-10.5 10*3/uL LAB RBC Red Blood Count 4.48 Normal 3.90-5.60 10*6/u L LAB HGB Hemoglobin 13.8 Normal 13.0-17.0 g/dL LAB HCT Hematocrit 41.1 Normal 38.8-50.0 % LAB MCV Mean Corpuscular Volume 91.7 Normal 83.5-101 fL LAB MCH Mean Corpuscular Hemoglobin 30.9 Normal 27.5-35.2 pg LAB MCHC Mean Corpuscular HGB Conc 33.7 Normal 32.5-35.6 g/dL LAB RDW Red Cell Distribution Width 14.5 Normal 12.0-14.8 % LAB PLT Platelet Count 169 Normal 150-450 10*3/uL LAB MPV Mean Platelet Volume 8.8 Normal 6.6-10.1 fL LAB MDW Monocyte Distribution Width 20.43 High 0.00-20.00 % Result Comment: For adults i n ED, MDW > 20.0 may be associated with a higher risk of sepsis during the first 12 hrs of hospital admission LAB NE% Neutrophils % (Auto) 58.1 . % LAB LY% Lymphocytes % (Auto) 23.7 . % LAB MO% Monocytes % (Auto) 17.3 . % LAB EO% Eosinophils % (Auto) 0.3 . % LAB BA% Basophils % (Auto) 0.6 . % LAB NRBC% NRBC% 0.1 Normal 0-0.5 /100{WBC } LAB NE# Neutrophils # (Auto) 3.9 Normal 1.8-7.7 10*3/uL LAB LY# Lymphocytes # (Auto) 1.6 Normal 1.00-4.8 10*3/uL LAB MO# Monocytes # (Auto) 1.2 High 0.0-0.8 10*3/uL LAB EO# Eosinophils # (Auto) 0.0 Normal 0.0-0.45 10*3/uL LAB BA# Basophils # (Auto) 0.0 Normal 0.0-0.2 10*3/uL Result Comment: PERFORMED BY : [place] [address] PATHOLOGIST TRIMMING DEPARTMENT BLOCKER JOSUE DAMON M.D. Performed By: #### CK, TSH3, LACTIC, CBC, HS TROP, CMP, MG #### [address] CREATINE KINASE Collected: 05/18/2024 5:07 PM Status : F Source: [facility] TYPE CODE TESTS RESULT OUT OF RANGE REFERENCE UNITS LAB CK Creatine Kinase 163 Normal 30-223 U/L Performed By: #### CK, TSH3, LACTIC, CBC, HS TROP, CMP, MG #### [place] [id number] [facility] TROPONIN I HIGH SENSITIVITY Collected: 05/18/2024 5:0 7 PM Status: F Source: [facility] TYPE CODE TESTS RESULT OUT OF RANGE REFERENCE UNITS LAB HS TROP Troponin I High Sensitivity 11 Normal 0-20 Result Comment: The Troponin units of report have been changed to meet the Chest Pain Accreditation requirement, element EC5.M1l2. Troponin units are changed from pg/ml to ng/L. Also, the decimal is removed and results are in whole numbers. PERFORMED BY: [place] [address] PATHOLOGIST TRIMMING DEPARTMENT BLOCKER JOSUE DAMON M.D. Performed By: #### CK, TSH3, LACTIC, CBC, HS TROP, CMP, MG #### [place] [id number] [facility] COMPREHENSIVE METABOLIC PANEL Collected: 05/18/2024 5 :07 PM Status: F Source: [facility] TYPE CODE TESTS RESULT OUT OF RANGE REFERENCE UNITS LAB GLU Glucose 119 High 70-100 mg/dL Result Comment: Random Gluco se Reference Range is dependent on time and content of last meal. Glucose of more than 200 mg/dL in a nonstressed, ambulatory subject supports the diagnosis of Diabetes Mellitus. ADA recommended reference range LAB BUN Blood Urea Nitrogen 36 High 7-25 mg/d L LAB CREATT Creatinine 1.33 High 0.70-1.30 mg/dL LAB GFReNR Estimated GFR 53.700 mL/Min LAB NA Sodium 136 Normal 136-145 mmol/L LAB K Potassium 3.9 Normal 3.5-5.1 mmol/L LAB CL Chloride 110 High 98-107 mmol/L LAB CO2 Carbon Dioxide 20.6 Low 21.0-31.0 mmol/L LAB GAP Anion Gap 9.3 Normal 6.0-15.0 meq/L LAB CA Calcium 9.0 Normal 8.6-10.3 mg/dL LAB TP Total Protein 7.1 Normal 6.4-8.9 g/dL LAB ALB Albumin Level 4.3 Normal 3.5-5.7 g/dL LAB GLOB Globulin 2.8 g/dL LAB AGRATIO Albumin/Globulin Ratio 1.5 LAB BILIT Bilirubin,Total 1.3 High 0.3-1.0 mg/dL Result Comment: Samples from patients who have taken Naproxen have shown spurious elevation in Total Bilirubin levels. A metabolite of Naproxen, O-desmethylnaproxen, has been shown to interfere with the Champ-Santos method for measuring Total Bilirubin. LAB AST Aspartate Amino Transferase 17 Normal 13-39 U/L LAB ALT Alanine Aminotransferase 11 Normal 7-52 U/L LAB ALP Alkaline Phosphatase 96 Normal 34-104 U/L LAB CRCLPHA Creatinine Clr C alc Pharmacy 46.62 Performed By: #### CK, TSH3, LACTIC, CBC, HS TROP, CMP, MG #### [facility] [address] MAGNESIUM Collected: 5:07 PM Status: F Source: [facility] TYPE CODE TESTS RESULT OUT OF RANGE REFERENCE UNITS LAB MG Magnesium 2.0 Normal 1.9-2.7 mg/dL Performed By: #### CK, TSH3, LACTIC, CBC, HS TROP, CMP, MG #### [facility] [address] THYROID STIMULATING HORMONE Collected: 05/18/2024 5:0 7 PM Status: F Source: [facility] TYPE CODE TESTS RESULT OUT OF RANGE REFERENCE UNITS LAB TSH3 Thyroid Stimulating Hormone 1.91 Normal 0.45-5.33 u[iU]/mL Result Comment: PERFORMED BY : [place] [id number] PATHOLOGIST TRIMMING DEPARTMENT BLOCKER JOSUE DAMON M.D. Performed By: #### CK, TSH3, LACTIC, CBC, HS TROP, CMP, MG #### [facility] [address] [place] [id number] [facility] MICROALB CREAT RATIO,U Collected: 02/26 10:39 AM Status: F Source: [facility] TYPE CODE TESTS RESULT OUT OF RANGE REFERENCE UNITS LAB UMAT Microalbumin , Urine 3.2 High 0.0-1.8 mg/dL LAB UCREA Creatinine, Urine (Random) 109.00 mg/dL Result Comment: No reference range established LAB MACREATRATIO Microalbumin /Creatinine Ratio 29.4 Normal 0.0-30.0 mg/g Result Comment: 30-300 mg/g indicates an increased risk for diabetic nephropathy. Greater than 300 mg/g is consistent with clinical nephropathy. (Am. J. Kidney Disease 1994, 25:107) PERFORMED BY: [place] [id number] PATHOLOGIST TRIMMING DEPARTMENT BLOCKER JOSUE DAMON M.D. Performed By: #### A1C WTH e A, CMP, CBC, URMACRERAT, LIPID #### [place] [id number] [facility] COMPLETE BLOOD COUNT AUTO DIFF Collected: 02/27/2024 10:39 AM Status: F Source: [facility] TYPE CODE TESTS RESULT OUT OF RANGE REFERENCE UNITS LAB WBC White Blood Count 6.4 Normal 4.1-10.5 10*3/uL LAB UNWBC Uncorrected WBC 6.4 Normal 4.1-10.5 10*3/uL LAB RBC Red Blood Count 4.13 Normal 3.90-5.60 10*6/u L LAB HGB Hemoglobin 12.8 Low 13.0-17.0 g/dL LAB HCT Hematocrit 38.3 Low 38.8-50.0 % LAB MCV Mean Corpuscular Volume 92.9 Normal 83.5-101 fL LAB MCH Mean Corpuscular Hemoglobin 31.0 Normal 27.5-35.2 pg LAB MCHC Mean Corpuscular HGB Conc 33.3 Normal 32.5-35.6 g/dL LAB RDW Red Cell Distribution Width 14.3 Normal 12.0-14.8 % LAB PLT Platelet Count 175 Normal 150-450 10*3/uL LAB MPV Mean Platelet Volume 9.4 Normal 6.6-10.1 fL LAB NE% Neutrophils % (Auto) 55.3 . % LAB LY% Lymphocytes % (Auto) 31.4 . % LAB MO% Monocytes % (Auto) 10.3 . % LAB EO% Eosinophils % (Auto) 2.4 . % LAB BA% Basophils % (Auto) 0.6 . % LAB NRBC% NRBC% 0.1 Normal 0-0.5 /100{WBC} LAB NE# Neutrophils # (Auto) 3.5 Normal 1.8-7.7 10*3/uL LAB LY# Lymphocytes # (Auto) 2.0 Normal 1.00-4.8 10*3/uL LAB MO# Monocytes # (Auto) 0.7 Normal 0.0-0.8 10*3/uL LAB EO# Eosinophils # (Auto) 0.2 Normal 0.0-0.45 10*3/uL LAB BA# Basophils # (Auto) 0.0 Normal 0.0-0.2 10*3/uL Result Comment: PERFORMED BY : [place] [address] PATHOLOGIST TRIMMING DEPARTMENT BLOCKER JOSUE DAMON M.D. Performed By: #### A1C WTH e A, CMP, CBC, URMACRERAT, LIPID #### [facility] [address] [place] [address] COMPREHENSIVE METABOLIC PANEL Collected: 02/27/2024 1 0:39 AM Status: F Source: [facility] TYPE CODE TESTS RESULT OUT OF RANGE REFERENCE UNITS LAB GLU Glucose 129 High 70-100 mg/dL Result Comment: Random Gluco se Reference Range is dependent on time and content of last meal. Glucose of more than 200 mg/dL in a nonstressed, ambulatory subject supports the diagnosis of Diabetes Mellitus. ADA recommended reference range LAB BUN Blood Urea Nitrogen 31 High 7-25 mg/d L LAB CREATT Creatinine 1.10 Normal 0.70-1.30 mg/dL LAB GFReNR Estimated GFR >60.0 mL/Min LAB NA Sodium 142 Normal 136-145 mmol/L LAB K Potassium 4.6 Normal 3.5-5.1 mmol/L LAB CL Chloride 108 High 98-107 mmol/L LAB CO2 Carbon Dioxide 28.1 Normal 21.0-31.0 mmol/L LAB GAP Anion Gap 10.5 Normal 6.0-15.0 meq/L LAB CA Calcium 8.7 Normal 8.6-10.3 mg/dL LAB TP Total Protein 6.0 Low 6.4-8.9 g/dL LAB ALB Albumin Level 3.9 Normal 3.5-5.7 g/dL LAB GLOB Globulin 2.1 g/dL LAB AGRATIO Albumin/Globulin Ratio 1.9 LAB BILIT Bilirubin,Total 0.8 Normal 0.3-1.0 mg/dL LAB AST Aspartate Amino Transferase 11 Low 13-39 U/L LAB ALT Alanine Aminotransferase 8 Normal 7-52 U/L LAB ALP Alkaline Phosphatase 97 Normal 34-104 U/L Performed By: #### A1C WTH e A, CMP, CBC, URMACRERAT, LIPID #### [facility] [address] LIPID PANEL Collected: 02/27/2024 10:39 AM Status: F Source: [facility] HOSPITAL TYPE CODE TESTS RESULT OUT OF RANGE REFERENCE UNITS LAB CHOL Cholesterol 111 Low 140-200 mg/dL Result Comment: Chol less th an 200 mg/dl low risk Chol 201-239 mg/dl borderline risk Chol 240 mg/dl and greater high risk LAB HDL HDL Cholesterol 53 Normal 23-92 mg/dL Result Comment: HDL CHOL ATP -III CLASSIFICATION Cardiovascular Risk HDL > or equal to 60 mg/dL LOW HDL < 40 mg/dL HIGH LAB TRIG W REF Triglyceride w/Reflex 49 Normal 0-149 mg/dL Result Comment: TRIG ATP III CLASSIFICATION TRIG less than 150 mg/dL Normal TRIG 150-199 mg/dL Borderline high TRIG 200-500 mg/dL High TRIG greater than 500 mg/dL Very high Standard traceable to the Center for Disease Conrtrol and Prevention (CDC) test method. LAB LDLC LDL Cholesterol,Calc ulated 48 Normal 0-100 mg/dL Result Comment: LDL ATP III CLASSIFICATION LDL less than 100 mg/dL Optimal LDL 100-129 mg/dL Near or above optimal LDL 130-159 mg/dL Borderline high LDL 160-189 mg/dL High LDL greater than 189 mg/dL Very high LAB VLDL VLDL CHOLESTEROL 9 mg/dL LAB CHLHDL Chol/HDL Ratio 2.1 <5.0 Result Comment: PERFORMED BY : [address] [place] [address] PATHOLOGIST TRIMMING DEPARTMENT BLOCKER JOSUE DAMON M.D. Performed By: #### A1C WTH e A, CMP, CBC, URMACRERAT, LIPID #### [facility] [address] [place] [address] [facility] A1C WITH ESTIMATED AVERAGE GLU Collected: 02/27/2024 10:39 AM Status: F Source: [facility] TYPE CODE TESTS RESULT OUT OF RANGE REFERENCE UNITS LAB .A1C Hemoglobin A1C 6.2 High 4.3-5.6 % Result Comment: Increased r isk for diabetes: 5.7 - 6.4 diabetes: >6.4 glycemic control for adults with diabetes: <7.0 LAB eAG Estimated Average Glucose 131 mg/dL Result Comment: PERFORMED BY : [address] [place] [address] PATHOLOGIST TRIMMING DEPARTMENT BLOCKER JOSUE DAMON M.D. Performed By: #### A1C WTH e A, CMP, CBC, URMACRERAT, LIPID #### [facility] [address] [place] [address] [facility] MICROALB CREAT RATIO,U Collected: 11/16/2023 3:04 PM Status: F Source: [facility] Order Comment: FASTING. JKW TYPE CODE TESTS RESULT OUT OF RANGE REFERENCE UNITS LAB UMAT Microalbumin , Urine 2.6 High 0.0-1.8 mg/dL LAB UCREA Creatinine, Urine (Random) 143.00 mg/dL Result Comment: No reference range established LAB MACREATRATIO Microalbumin /Creatinine Ratio 18.2 Normal 0.0-30.0 mg/g Result Comment: 30-300 mg/g indicates an increased risk for diabetic nephropathy. Greater than 300 mg/g is consistent with clinical nephropathy. (Am. J. Kidney Disease 1995, 25:107) PERFORMED BY: [address] [place] [address] PATHOLOGIST TRIMMING DEPARTMENT BLOCKER CECILIA CARBONE M.D. Performed By: #### CBC, A1C WTH eA, LIPID, T4F, CMP, URMACRERAT #### [facility] [address] COMPLETE BLOOD COUNT AUTO DIFF Collected: 11/16/2023 1:33 PM Status: F Source: F [facility] Order Comment: FASTING. JKW TYPE CODE TESTS RESULT OUT OF RANGE REFERENCE UNITS LAB WBC White Blood Count 6.1 Normal 4.1-10.5 10*3/uL LAB UNWBC Uncorrected WBC 6.1 Normal 4.1-10.5 10*3/uL LAB RBC Red Blood Count 4.14 Normal 3.90-5.60 LAB HGB Hemoglobin 13.0 Normal 13.0-17.0 g/dL LAB HCT Hematocrit 38.9 Normal 38.8-50.0 % LAB MCV Mean Corpuscular Volume 93.9 Normal 83.5-101 fL LAB MCH Mean Corpuscular Hemoglobin 31.3 Normal 27.5-35.2 pg LAB MCHC Mean Corpuscular HGB Conc 33.4 Normal 32.5-35.6 g/dL LAB RDW Red Cell Distribution Width 14.3 Normal 12.0-14.8 % LAB PLT Platelet Count 174 Normal 150-450 10*3/uL LAB MPV Mean Platelet Volume 9.2 Normal 6.6-10.1 fL LAB NE% Neutrophils % (Auto) 63.2 . % LAB LY% Lymphocytes % (Auto) 24.7 . % LAB MO% Monocytes % (Auto) 11.0 . % LAB EO% Eosinophils % (Auto) 0.7 . % LAB BA% Basophils % (Auto) 0.4 . % LAB NRBC% NRBC% 0.0 Normal 0-0.5 /100{WBC } LAB NE# Neutrophils # (Auto) 3.8 Normal 1.8-7.7 10*3/uL LAB LY# Lymphocytes # (Auto) 1.5 Normal 1.00-4.8 10*3/uL LAB MO# Monocytes # (Auto) 0.7 Normal 0.0-0.8 10*3/uL LAB EO# Eosinophils # (Auto) 0.0 Normal 0.0-0.45 10*3/uL LAB BA# Basophils # (Auto) 0.0 Normal 0.0-0.2 10*3/uL Result Comment: PERFORMED BY : [facility] [address] [place] [address] PATHOLOGIST TRIMMING DEPARTMENT BLOCKER CECILIA CARBONE M.D. Performed By: #### CBC, A1C WTH eA, LIPID, T4F, CMP, URMACRERAT #### [facility] [address] [place] [id number] [facility] COMPREHENSIVE METABOLIC PANEL Collected: 11/16/2023 1 :33 PM Status: F Source: [facility] Order Comment: FASTING. JKW TYPE CODE TESTS RESULT OUT OF RANGE REFERENCE UNITS LAB GLU Glucose 107 High 70-100 mg/dL Result Comment: Random Gluco se Reference Range is dependent on time and content of last meal. Glucose of more than 200 mg/dL in a nonstressed, ambulatory subject supports the diagnosis of Diabetes Mellitus. ADA recommended reference range LAB BUN Blood Urea Nitrogen 20 Normal 7-25 mg/d L LAB CREATT Creatinine 1.21 Normal 0.70-1.30 mg/dL LAB GFReNR Estimated GFR > 60.0 LAB NA Sodium 142 Normal 136-145 mmol/L LAB K Potassium 4.9 Normal 3.5-5.1 mmol/L LAB CL Chloride 107 Normal 98-107 mmol/L LAB CO2 Carbon Dioxide 28.0 Normal 21.0-31.0 mmol/L LAB GAP Anion Gap 11.9 Normal 6.0-15.0 LAB CA Calcium 9.0 Normal 8.6-10.3 mg/dL LAB TP Total Protein 6.3 Low 6.4-8.9 g/dL LAB ALB Albumin Level 4.1 Normal 3.5-5.7 g/dL LAB GLOB Globulin 2.2 g/dL LAB AGRATIO Albumin/Globulin Ratio 1.9 LAB BILIT Bilirubin,Total 1.1 High 0.3-1.0 mg/dL LAB AST Aspartate Amino Transferase 13 Normal 13-39 U/L LAB ALT Alanine Aminotransferase 9 Normal 7-52 U/L LAB ALP Alkaline Phosphatase 90 Normal 34-104 U/L Performed By: #### CBC, A1C WTH eA, LIPID, T4F, CMP, URMACRERAT #### [facility] [address] [place] [id number] [facility] LIPID PANEL Collected: 11/16/2023 1:33 PM Status: F Source: [facility] Order Comment: FASTING. JKW TYPE CODE TESTS RESULT OUT OF RANGE REFERENCE UNITS LAB CHOL Cholesterol 116 Low 140-200 mg/dL Result Comment: Chol less th an 200 mg/dl low risk Chol 201-239 mg/dl borderline risk Chol 240 mg/dl and greater high risk LAB HDL HDL Cholesterol 51 Normal 23-92 mg/dL Result Comment: HDL CHOL ATP -III CLASSIFICATION Cardiovascular Risk HDL > or equal to 60 mg/dL LOW HDL < 40 mg/dL HIGH LAB TRIG W REF Triglyceride w/Reflex 70 Normal 0-149 mg/dL Result Comment: TRIG ATP III CLASSIFICATION TRIG less than 150 mg/dL Normal TRIG 150-199 mg/dL Borderline high TRIG 200-500 mg/dL High TRIG greater than 500 mg/dL Very high Standard traceable to the Center for Disease Conrtrol and Prevention (CDC) test method. LAB LDLC LDL Cholesterol,Calc ulated 51 Normal 0-100 mg/dL Result Comment: LDL ATP III CLASSIFICATION LDL less than 100 mg/dL Optimal LDL 100-129 mg/dL Near or above optimal LDL 130-159 mg/dL Borderline high LDL 160-189 mg/dL High LDL greater than 189 mg/dL Very high LAB VLDL VLDL CHOLESTEROL 14 mg/dL LAB CHLHDL Chol/HDL Ratio 2.3 <5.0 Performed By: #### CBC, A1C WTH eA, LIPID, T4F, CMP, URMACRERAT #### [facility] [address] FREE T4 (FREE THYROXINE) Collected: 06/2023 1:33 PM Status: F Source: [facility] Order Comment: FASTING. JKW TYPE CODE TESTS RESULT OUT OF RANGE REFERENCE UNITS LAB T4F Free T4 (Free Thyroxine) 0.68 Normal 0.61-1.12 ng/dL Result Comment: PERFORMED BY : [place] [address] PATHOLOGIST TRIMMING DEPARTMENT BLOCKER CECILIA CARBONE M.D. Performed By: #### CBC, A1C WTH eA, LIPID, T4F, CMP, URMACRERAT #### [facility] [address] A1C WITH ESTIMATED AVERAGE GLU Collected: 11/16/2023 1:33 PM Status: F Source: [facility] Order Comment: FASTING. JKW TYPE CODE TESTS RESULT OUT OF RANGE REFERENCE UNITS LAB .A1C Hemoglobin A1C 6.1 High 4.3-5.6 % Result Comment: Increased ri sk for diabetes: 5.7 - 6.4 diabetes: >6.4 glycemic control for adults with diabetes: <7.0 LAB eAG Estimated Average Glucose 128 mg/dL Result Comment: PERFORMED BY : [facility] [address] [place] [address] PATHOLOGIST TRIMMING DEPARTMENT BLOCKER CECILIA CARBONE M.D. Performed By: #### CBC, A1C WTH eA, LIPID, T4F, CMP, URMACRERAT #### [facility] [address] COMPLETE BLOOD COUNT AUTO DIFF Collected: 08/25/2023 11:32 AM Status: F Source: [facility] TYPE CODE TESTS RESULT OUT OF RANGE REFERENCE UNITS LAB WBC White Blood Count 6.5 Normal 4.1-10.5 10*3/uL LAB UNWBC Uncorrected WBC 6.5 Normal 4.1-10.5 10*3/uL LAB RBC Red Blood Count 4.04 Normal 3.90-5.60 LAB HGB Hemoglobin 12.6 Low 13.0-17.0 g/dL LAB HCT Hematocrit 37.7 Low 38.8-50.0 % LAB MCV Mean Corpuscular Volume 93.4 Normal 83.5-101 fL LAB MCH Mean Corpuscular Hemoglobin 31.3 Normal 27.5-35.2 pg LAB MCHC Mean Corpuscular HGB Conc 33.5 Normal 32.5-35.6 g/dL LAB RDW Red Cell Distribution Width 14.5 Normal 12.0-14.8 % LAB PLT Platelet Count 173 Normal 150-450 10*3/uL LAB MPV Mean Platelet Volume 9.9 Normal 6.6-10.1 fL LAB NE% Neutrophils % (Auto) 64.6 . % LAB LY% Lymphocytes % (Auto) 24.0 . % LAB MO% Monocytes % (Auto) 9.9 . % LAB EO% Eosinophils % (Auto) 1.2 . % LAB BA% Basophils % (Auto) 0.3 . % LAB NRBC% NRBC% 0.0 Normal 0-0.5 /100{WBC} LAB NE# Neutrophils # (Auto) 4.2 Normal 1.8-7.7 10*3/uL LAB LY# Lymphocytes # (Auto) 1.6 Normal 1.00-4.8 10*3/uL LAB MO# Monocytes # (Auto) 0.6 Normal 0.0-0.8 10*3/uL LAB EO# Eosinophils # (Auto) 0.1 Normal 0.0-0.45 10*3/uL LAB BA# Basophils # (Auto) 0.0 Normal 0.0-0.2 10*3/uL Result Comment: PERFORMED BY : [place] [address] PATHOLOGIST TRIMMING DEPARTMENT BLOCKER CECILIA CARBOEN M.D. Performed By: #### CBC, TSH3 , CMP, LIPID, A1C [facility] #### [address] COMPREHENSIVE METABOLIC PANEL Collected: 08/25/2023 1 1:32 AM Status: F Source: [facility] TYPE CODE TESTS RESULT OUT OF RANGE REFERENCE UNITS LAB GLU Glucose 109 High 70-100 mg/dL Result Comment: Random Gluco se Reference Range is dependent on time and content of last meal. Glucose of more than 200 mg/dL in a nonstressed, ambulatory subject supports the diagnosis of Diabetes Mellitus. ADA recommended reference range LAB BUN Blood Urea Nitrogen 18 Normal 7-25 mg/d L LAB CREATT Creatinine 0.98 Normal 0.70-1.30 mg/dL LAB GFReNR Estimated GFR > 60.0 LAB NA Sodium 140 Normal 136-145 mmol/L LAB K Potassium 4.4 Normal 3.5-5.1 mmol/L LAB CL Chloride 106 Normal 98-107 mmol/L LAB CO2 Carbon Dioxide 26.9 Normal 21.0-31.0 mmol/L LAB GAP Anion Gap 11.5 Normal 6.0-15.0 LAB CA Calcium 9.0 Normal 8.6-10.3 mg/dL LAB TP Total Protein 6.3 Low 6.4-8.9 g/dL LAB ALB Albumin Level 4.2 Normal 3.5-5.7 g/dL LAB GLOB Globulin 2.1 g/dL LAB AGRATIO Albumin/Globulin Ratio 2.0 LAB BILIT Bilirubin,Total 1.4 High 0.3-1.0 mg/dL Result Comment: Samples from patients who have taken Naproxen have shown spurious elevation in Total Bilirubin levels. A metabolite of Naproxen, O-desmethylnaproxen, has been shown to interfere with the Champ-Brennenf method for measuring Total Bilirubin. LAB AST Aspartate Amino Transferase 14 Normal 13-39 U/L LAB ALT Alanine Aminotransferase 10 Normal 7-52 U/L LAB ALP Alkaline Phosphatase 92 Normal 34-104 U/L Performed By: #### CBC, TSH3 , CMP, LIPID, A1C WT eA #### [facility] [address] [place] [address] [facility] LIPID PANEL Collected: 08/25/2023 11:32 AM Status: F Source: [facility] TYPE CODE TESTS RESULT OUT OF RANGE REFERENCE UNITS LAB CHOL Cholesterol 106 Low 140-200 mg/dL Result Comment: Chol less th an 200 mg/dl low risk Chol 201-239 mg/dl borderline risk Chol 240 mg/dl and greater high risk LAB HDL HDL Cholesterol 48 Normal 23-92 mg/dL Result Comment: HDL CHOL ATP -III CLASSIFICATION Cardiovascular Risk HDL > or equal to 60 mg/dL LOW HDL < 40 mg/dL HIGH LAB TRIG W REF Triglyceride w/Reflex 59 Normal 0-149 mg/dL Result Comment: TRIG ATP III CLASSIFICATION TRIG less than 150 mg/dL Normal TRIG 150-199 mg/dL Borderline high TRIG 200-500 mg/dL High TRIG greater than 500 mg/dL Very high Standard traceable to the Center for Disease Conrtrol and Prevention (CDC) test method. LAB LDLC LDL Cholesterol,Calc ulated 46 Normal 0-100 mg/dL Result Comment: LDL ATP III CLASSIFICATION LDL less than 100 mg/dL Optimal LDL 100-129 mg/dL Near or above optimal LDL 130-159 mg/dL Borderline high LDL 160-189 mg/dL High LDL greater than 189 mg/dL Very high LAB VLDL VLDL CHOLESTEROL 11 mg/dL LAB CHLHDL Chol/HDL Ratio 2.2 <5.0 Performed By: #### CBC, TSH3 , CMP, LIPID, A1C WT eA #### [facility] [address] [place] [address] [facility] THYROID STIMULATING HORMONE Collected: 08/25/2023 11:32 AM Status: F Source: [facility] TYPE CODE TESTS RESULT OUT OF RANGE REFERENCE UNITS LAB TSH3 Thyroid Stimulating Hormone 1.98 Normal 0.45-5.33 u[iU]/mL Result Comment: PERFORMED BY : [address] [address] PATHOLOGIST TRIMMING DEPARTMENT BLOCKER CECILIA CARBONE M.D. Performed By: #### CBC, TSH3 , CMP, LIPID, A1C WTH eA #### [facility] [address] [place] [id number] [facility] A1C WITH ESTIMATED AVERAGE GLU Collected: 08/25/2023 11:32 AM Status: F Source: [facility] TYPE CODE TESTS RESULT OUT OF RANGE REFERENCE UNITS LAB .A1C Hemoglobin A1C 6.2 High 4.3-5.6 % Result Comment: Increased ri sk for diabetes: 5.7 - 6.4 diabetes: >6.4 glycemic control for adults with diabetes: <7.0 LAB eAG Estimated Average Glucose 131 mg/dL Result Comment: PERFORMED BY : [address] [address] PATHOLOGIST TRIMMING DEPARTMENT BLOCKER CECILIA CARBONE M.D. Performed By: #### CBC, TSH3 , CMP, LIPID, A1C WT eA #### [address] [address] [facility] ALLERGIES DATE TYPE / CODE NAME / CODE REACTION SEVERITY SOURCE 05/18/2024 Drug Allergy/3641054 02(SNOMED CT) No Known Allergies/[id number] (RXNORM) Unknown [facility] SYSTEMIC/414429 006(SNOMED CT) NO KNOWN ALLERGIES [facility] Ambulatory ENCOUNTERS ADMIT/DISCHARGE ACCOUNT NUMBER ADMITTING ENCOUNTER CLASS LOCATION SOURCE 07/02/2024/07/03/19 [id number] Ambulatory Building:NOM S SWSDERM [facility] EPIC 06/27/2024/06/28/19 25 [id number] Ambulatory Building:BSR NEURO [facility] EPIC 05/23/2024/05/29/19 [id number] Dread Toney Amb[facility] [id number]: 1 [facility] 05/18/2024/05/19/19 [id number] Floyd Miranda Emergency [facility] 05/17/2024/05/18/19 [id number] Ambulatory Building:NOM S SWSDERM [facility] EPIC 03/01/2024/03/01/20 24 [id number] Ambulatory Building:NOM SSWSIM [facility] EPIC 02/27/2024/02/27/20 24 [id number] [facility] 02/23/2024/02/23/20 24 [id number] Ambulatory Building:DOT ih[address] 11/16/2023/11/16/19 24 [id number] [facility] Center[facility] ng:[facility] 08/31/2023/08/31/19 24 [id number] Ambulatory Building:NOM [facility] EPIC 08/25/2023/08/25/19 24 [id number] [facility] PAYERS ENCOUNTER GUARANTOR PAYER SUBSCRIBER SOURCE 07/02/2024 DES [place]: [place], [place] [address]Xdp: () Primary Insurance:MEDICARE Policy Number: [id number] ve Date:7889-80-26Wzb n Name:Medicare DES SALAS: [id number] [place] [address] [facility] 07/02/2024 Secondary Insurance:BCBSPoli cy Number: [id number] chanell Date:2012-02-12 DES SALAS: [id number] [place] [address] [facility] 06/27/2024 DES SALAS: [place] [address] [place] [address]Bju: (HP) Primary Insurance:MEDICARE Policy Number: [id number] ve Date:1961-92-40Znk n Name:Medicare DES SALAS: [id number] [place] [address] [facility] EPIC 06/27/2024 Secondary Insurance:BCBSPoli cy Number: [id number] chanell Date:2012-02-12 DES [place] WILLB: [id number] [place] [address] [facility] EPIC 05/23/2024 [place] [id number] [place] [address]Kvq: () Primary Insurance:Medicare Policy Number: [id number] Date:2024-05-23 [place] Guero: [id number] [place] [address]Anr: () [facility] 05/23/2024 Secondary Insurance:[place]/BSPolicy Number: [id number] chanell Date:2024-05-23 [place] Guero: [id number] [place] [address]Crg: () [facility] 05/23/2024 Tertiary Insurance:Self PayPolicy Number: Effective Date:2024-05-23 [facility] 05/18/2024 [place] [id number] [place] [address]Fza: () Primary Insurance:Medicare Policy Number: [id number] ve Date:2024-05-18 [place]: [id number] [place] [address]Mua: () [facility] 05/18/2024 Secondary Insurance:[place] /BSPolicy Number: [id number] chanell Date:2024-05-18 [place]: [id number] [place] [address]Mrd: (HP) [facility] 05/18/2024 Tertiary Insurance:Self PayPolicy Number: Effective Date:2024-05-18 NOT GIVENUNK [facility] 05/17/2024 DES SOLISB: [id number] [place] [address]Oxc: (HP) Primary Insurance:MEDICARE Policy Number: [id number] Date:0462-72-04Mxb n Name:Medicare DES SOLISB: [id number] [place] [address] [facility] 05/17/2024 Secondary Insurance:BCBSPoli cy Number: [id number] chanell Date:2012-02-12 DES BOLESSEANB: [id number] [place] [address] [facility] 03/01/2024 DES BOLESSEANB: [id number] [place] [address]Kli: () Primary Insurance:MEDICARE Policy Number: [id number] Date:7934-04-84Nkq n Name:Medicare DES SOLISB: [id number] [place] [address] [facility] 03/01/2024 Secondary Insurance:BCBSPoli cy Number: [id number] chanell Date:2012-02-12 DES BOLESSEANB: [id number] [place] [address] [facility] 02/27/2024 Des Simons[address] [place] [address]Qkc: (HP) Primary Insurance:Medicare Policy Number: [id number] Date:2024-02-27 Dse Jens BolesSeanB: [id number] [place] [address]Pea: () [facility] 02/27/2024 Secondary Insurance:[place] BARBOSA/Yael Number: [id number] chanell Date:2024-02-27 Des SimonsB: [id number] [place] [address]Wvv: () [facility] 02/27/2024 Tertiary Insurance:Self PayPolicy Number: Effective Date:2024-02-27 [facility] 02/23/2024 DES BOLESANGY: [id number] [place] [address]Zvg: () () Primary Insurance:MEDICARE Policy Number: [id number] Date:2007-07-13 DES BOLESANGY: [id number] [address] [place] [address]Kwy: () [facility] 02/23/2024 Secondary Insurance:Chandrika ervin Number: [id number] chanell Date:2012-02-12 DES BOLESANGY: [id number] [place] [place] [address]Rfb: () [facility] 11/16/2023 Des Boleshn[address] [place] [address]Ujs: () Primary Insurance:Medicare Policy Number: [id number] Date:2023-11-16 [place] WillB: [id number] [place] [address]Ifw: () [facility] 11/16/2023 Secondary Insurance:[place] BARBOSA/Cliftony Number: [id number] chanell Date:2023-11-16 Des SolisB: [id number] [place] [address]Hyk: () [facility] 11/16/2023 Tertiary Insurance:Self PayPolicy Number: Effective Date:2023-11-16 [facility] 08/31/2023 DES SOLISB: [id number] [place] [address]Lvm: () Primary Insurance:MEDICARE Policy Number: [id number] Date:0095-51-71Iec n Name:Medicare DES SOLISPrashanth: [id number] [place] [address] [facility] EPIC 08/31/2023 Secondary Insurance:BCBSPoli cy Number: [id number] chanell Date:2012-02-12 DES SOLISPrashanth: [id number] [place] [address] [facility] EPIC 08/25/2023 Des [address]ons[address] [address]Pbz: () Primary Insurance:Medicare Policy Number: [id number] ve Date:2023-08-25 Des SimonsDUSTIN: [id number] [place] [address]Wum: () [facility] 08/25/2023 Secondary Insurance:[place]/BSPolicy Number: [id number] chanell Date:2023-08-25 Des SimonsB: [id number] [place] [address]Ido: () [facility] 08/25/2023 Tertiary Insurance:Self PayPolicy Number: Effective Date:2023-08-25 NOT GIVENUNK [facility]
--- OUTSIDE RECORDS SUMMARY | 2024-07-04 11:30 | XMS_ITS ---
Author Organization [facility] Address [address] [place] [address] [place] [address] Care Team Providers Care Machine Cutter Name Role Phone Zach Frias Primary Care Provider UnavailLeonidas Abdul Unavailable [phone] Encounters Encounter Location Date Provider Diagnosis [address] [address] 07/04/2024 Leonidas Almeida Plan Of Treatment No Information Progress Notes * Alex JACOBDOB:1940 (83 yo M)Acc No.[id number]:07/04/2024 Patient: Alex TOUSSAINT Provider: Deb Almeida DPM :1940 A ge:83 Y S ex:Male Date:07/04/2024 Address:[facility] Pcp:Zach Frias Subjective: * Chief Complaints: * * Medical History: Objective: * Vitals: Assessment: Plan: * Treatment: * Images: * Electronic signature of [facility] in [place] Almeida on 08/02/2024 at 09:07 PM EDT Sign off status: Pending * Provider: Deb Almeida DPM Date: 0 07/04/2024 Generated for Sera knight/Shady/eTkarinaitting on: 08/02/2024 09:07 PM EDT
--- OUTSIDE RECORDS SUMMARY | 2024-07-13 06:50 | XMS_ITS ---
Author Organization [facility] Address [address] [place] [address] Care Team Providers Care Keysmith Name Role Phone Shamir Wise Unavailable [phone] Jasmyne Jonas Unavailable [phone] REASON FOR VISIT Low Back Pain, inpatient consult follow-up Encounters Encounter [facility] Date [facility] [address] [place] [address] [place] [address] 07/13/2024 Jasmyne Jonas Compression fracture of L3 vertebra with routine healing, subsequent encounter S32.030D Assessments Encounter Date Diagnosis (ICD Code) Assessment Notes Treatment Notes Treatment Clinical Notes Section Notes 07/13/2024 Compression fracture of L3 vertebra with routine healing, subsequent encounter (ICD-10 - S32.030D) 1. Mild L3 superior endplate compression fracture 07/13/2024 Other Will have patient continue with the LSO brace for another month when he is out of bed. We will see him back for recheck of symptoms in 1 month as well. The patient is very much in agreement with the treatment and/or diagnostic plan set forth and all questions were answered to the patient's satisfaction. Thanks once again. If we can be of further service to your patients with disorders of the spine, cervical, thoracic, or lumbar, please do not hesitate to contact Dr. Rhodes. Best regards, 1. Mild L3 superior endplate compression fracture Plan Of Treatment Treatment Notes Assessment Notes Other Will have patient continue with the LSO brace for another month when he is out of bed. We will see him back for recheck of symptoms in 1 month as well. The patient is very much in agreement with the treatment and/or diagnostic plan set forth and all questions were answered to the patient's satisfaction. Thanks once again. If we can be of further service to your patients with disorders of the spine, cervical, thoracic, or lumbar, please do not hesitate to contact Dr. Rhodes. Best regards, Next Appt Details Follow Up: 4 Weeks, Reason: Provider Name:Shamir Vela, 08/17/2024 10:40:00 AM, [address], [address], [place], [address], Progress Notes * DES SIMONSDOB:1940 (83 yo M)Acc No.[id number]:07/13/2024 Patient: DES TOUSSAINT Provider: MIMA Lyon :1940 A ge:83 Y S ex:Male Date:07/13/2024 Address: ED [facility] Subjective: * Chief Complaints: * 1 . Low Back Pain, inpatient consult follow-up. * HPI: G eneral Follow Up Information: Dictated by Jasmyne Jonas PA-C Patient is an 83-year-old male with a history of dementia that presents today with a pharmacist in charge from his extended care facility for follow-up of an L3 superior endplate compression fracture. He was seen in consultation at the [facility] by myself while admitted after a fall. An order for an LSO brace was given and patient has obtained this and is wearing today. Patient confused on questioning but denies any back pain today. The pharmacist in charge with him is unable to provide any history. * ROS: M usculoskeletal: Denies B ack Pain. * Medical History: * Family History: N o Family History documented.. * Medications: N one Objective: * Vitals: * Examination: G eneral examination: O n examination, the patient is well-developed, well-nourished, well-groomed, alert and oriented x1 to name. Normal mood. Patient sitting in wheelchair, ambulation not observed. LSO brace in place. Limited lumbar ROM. Non tender over the lumbar spine. 5/5 muscle strength bilateral lower extremities. Sensory intact lower extremities. C T Imaging Studies: C T lumbar spine without contrast was reviewed from the [facility] from 06/30/24 Impression Superior endplate fracture of L3 without significant loss of height, no retropulsion. Assessment: * Assessment: 1. C ompression fracture of L3 vertebra with routine healing, subsequent encounter - S32.030D (Primary) 1. Mild L3 superior endplate compression fracture. Plan: * Treatment: * Follow Up: 4 Weeks Forms: * Images: * Electronic signature of Prince Jonas PA-C on 08/02/2024 at 11:35 AM EDT Sign off status: Pending * Provider: MIMA Lyon Date: 07/13/2024 Generated for Sera knight/Shady/Staceyitting on: 08/02/2024 11:35 AM EDT History and Physical Notes * HPI (History of Present Illness) Category Sub-Category Detail Notes Category Not es General Follow Up Information Dictated by Jasmyne Jonas PA-C Patient is an 83-year-old male with a history of dementia that presents today with a pharmacist in charge from his extended care facility for follow-up of an L3 superior endplate compression fracture. He was seen in consultation at the [facility] by myself while admitted after a fall. An order for an LSO brace was given and patient has obtained this and is wearing today. Patient confused on questioning but denies any back pain today. The pharmacist in charge with him is unable to provide any history. Examination Category Sub-Category Detail Notes Category Not es General examination On exami nation, the patient is well-developed, well-nourished, well-groomed, alert and oriented x1 to name. Normal mood. Patient sitting in wheelchair, ambulation not observed. LSO brace in place. Limited lumbar ROM. Non tender over the lumbar spine. 5/5 muscle strength bilateral lower extremities. Sensory intact lower extremities. CT Imaging Studies CT lumbar spine without contrast was reviewed from the [facility] from 06/30/24 Impression Superior endplate fracture of L3 without significant loss of height, no retropulsion.
[2024-08-02 20:51] VITALS: BP 144/77; PULSE 84; TEMP 36.6; O2SAT 95; BMI 29.0
--- NOTE | 2024-08-02 20:54 | XR_ITS ---
[address] [address] Patient Name: DES SIMONS MRN: [id number] date: 1940 Sex: M Assigned Patient Location: ED.MAIN Current Patient Location: ED.MAIN Accession/Order Number: [id number] Exam Date: 08/02/2024 21:49 Report Date: 08/02/2024 21:51 At the request of: BELKIS MARTINS Procedure: XR chest 1V Plain film chest Single view HISTORY: Fell. Lower back tenderness and bruising COMPARISON: 06/27/2024 FINDINGS: SUPPORT DEVICES: None POSTSURGICAL CHANGES: None HEART: Within normal limits PULMONARY CLAIRE: Within normal limits MEDIASTINUM: Unremarkable LUNGS AND PLEURA: No acute lung process, pleural effusion or pneumothorax identified. Similar mild right hemidiaphragm elevation BONY STRUCTURES: Thoracic spine hyperostosis/degeneration. ADDITIONAL FINDINGS None XR/XR chest 1V IMPRESSION: No acute process. Impression dictated by: Phani Owens M.D. 08/02/2024 9:51 PM Dictation Location: [employer] Electronically authenticated by: [id number] Y Date: 08/02/2024 21:51
--- NOTE | 2024-08-02 20:54 | CT_ITS ---
The [address] [address] Patient Name: DES SIMONS MRN: [id number] date: 1940 Sex: M Assigned Patient Location: ED.MAIN Current Patient Location: ED.MAIN Accession/Order Number: [id number] Exam Date: 08/02/2024 21:40 Report Date: 08/02/2024 21:43 At the request of: BELKIS MARTINS Procedure: CT head/brain wo con Unenhanced head CT TECHNIQUE: Contiguous axial imaging of the head. The CT exam was performed using one or more the following dose reduction techniques: Automated exposure control, adjustment of the MA and/or Kv according to patient size, or use of the iterative reconstruction technique. COMPARISON: 06/27/2024 HISTORY: Fell. Head injury. Dementia. VENTRICLES: Within normal limits ATROPHY: Diffuse atrophy redemonstrated BRAIN PARENCHYMA: Decreased density of the white matter is most consistent with chronic small vessel disease. HEMORRHAGE: None HERNIATION: No mass effect or herniation INFARCTION: No recent vascular distribution infarction is seen. EXTRA-AXIAL FLUID COLLECTIONS None MIDBRAIN: Unremarkable JOSE: Unremarkable MEDULLA: Unremarkable SINUSES: Unremarkable ORBITS: Grossly unremarkable MASTOIDS: Unremarkable BONY STRUCTURES Intact ADDITIONAL FINDINGS: There is scalp hematoma no underlying fracture atherosclerosis of carotid siphons. CT/CT head/brain wo con IMPRESSION: No acute findings. Impression dictated by: Phani Owens M.D. 08/02/2024 9:43 PM Dictation Location: [employer] Electronically authenticated by: [id number] Y Date: 08/02/2024 21:43
--- NOTE | 2024-08-02 20:54 | CT_ITS ---
The [address] [address] Patient Name: DES SIMONS MRN: [id number] date: 1940 Sex: M Assigned Patient Location: ED.MAIN Current Patient Location: ED.MAIN Accession/Order Number: [id number] Exam Date: 08/02/2024 21:53 Report Date: 08/02/2024 22:02 At the request of: BELKIS MARTINS Procedure: CT lumbar spine wo con CT THORACIC SPINE WITHOUT CONTRAST TECHNIQUE: The CT exam was performed using one or more the following dose reduction techniques: Automated exposure control, adjustment of the MA and/or Kv according to patient size, or use of the iterative reconstruction technique. HISTORY: Fell. Lower back tenderness bruising COMPARISON: None POST SURGERY CHANGES: None BONY ALIGNMENT: Adequate BONY SPINAL CANAL: Patent central bony canal FRACTURE: None BONY LESIONS: None SOFT TISSUES: Unremarkable DEGENERATIVE CHANGES: Multilevel thoracic hyperostosis/spondylosis. The visualized lung rashid are unremarkable. The visualized aorta is unremarkable. No obstructive uropathy identified. CT/CT lumbar spine wo con IMPRESSION: NO ACUTE BONY PROCESS. CT LUMBAR SPINE WITHOUT CONTRAST TECHNIQUE: Axial acquisition of the lumbar spine obtained with the sagittal and coronal reconstructed imaging.The CT exam was performed using one or more the following dose reduction techniques: Automated exposure control, adjustment of the MA and/or Kv according to patient size, or use of the iterative reconstruction technique. HISTORY: Fell. Lower back pain COMPARISON: None FINDINGS: The last fully segmented vertebral pair is operationally defined as L5/S1. POST SURGERY CHANGES: None BONY ALIGNMENT: Adequate bony alignment identified. SPINAL CANAL:Patent bony central canal LUMBAR FRACTURE: L1 left transverse process fracture. Remote appearing left T12 rib fracture. BONY LESIONS: None KIDNEYS: No hydronephrosis is identified. AORTA: No aortic aneurysm is seen. Atherosclerosis Multilevel mild spondylosis. Upper and mid lumbar anterior hyperostosis. Multilevel facet degeneration Assessment of disc herniation limited with CT examination. No obvious disc herniation seen with CT exam. IMPRESSION:L1 left transverse process fracture. Age-indeterminate. Multilevel level degeneration with a hyperostosis. Impression dictated by: Phani Owens M.D. 08/02/2024 10:02 PM Dictation Location: [facility] Electronically authenticated by: [id number] Y Date: 08/02/2024 22:02
--- NOTE | 2024-08-02 20:54 | XR_ITS ---
The [address] [address] Patient Name: DES SIMONS MRN: [id number] date: 1940 Sex: M Assigned Patient Location: ED.MAIN Current Patient Location: ED.MAIN Accession/Order Number: [id number] Exam Date: 08/02/2024 21:51 Report Date: 08/02/2024 21:52 At the request of: BELKIS MARTINS Procedure: XR pelvis 1-2V Single view of the pelvis plain film HISTORY: Fell. Lower back tenderness and bruising COMPARISON: None ACUTE FINDINGS: None BONY ALIGNMENT: Adequate SOFT TISSUES: Unremarkable DEGENERATIVE CHANGE:Mild INTRAPELVIC STRUCTURES: Unremarkable POSTSURGICAL CHANGES:None XR/XR pelvis 1-2V IMPRESSION:No acute displaced fracture Impression dictated by: Phani Owens M.D. 08/02/2024 9:52 PM Dictation Location: [place] [address] Electronically authenticated by: [id number] Y Date: 08/02/2024 21:52
--- NOTE | 2024-08-02 20:54 | CT_ITS ---
The [address] [address] Patient Name: DES SIMONS MRN: [id number] date: 1940 Sex: M Assigned Patient Location: ED.MAIN Current Patient Location: ED.MAIN Accession/Order Number: [id number] Exam Date: 08/02/2024 21:53 Report Date: 08/02/2024 22:02 At the request of: BELKIS MARTINS Procedure: CT lumbar spine wo con CT THORACIC SPINE WITHOUT CONTRAST TECHNIQUE: The CT exam was performed using one or more the following dose reduction techniques: Automated exposure control, adjustment of the MA and/or Kv according to patient size, or use of the iterative reconstruction technique. HISTORY: Fell. Lower back tenderness bruising COMPARISON: None POST SURGERY CHANGES: None BONY ALIGNMENT: Adequate BONY SPINAL CANAL: Patent central bony canal FRACTURE: None BONY LESIONS: None SOFT TISSUES: Unremarkable DEGENERATIVE CHANGES: Multilevel thoracic hyperostosis/spondylosis. The visualized lung rashid are unremarkable. The visualized aorta is unremarkable. No obstructive uropathy identified. CT/CT thoracic spine wo con IMPRESSION: NO ACUTE BONY PROCESS. CT LUMBAR SPINE WITHOUT CONTRAST TECHNIQUE: Axial acquisition of the lumbar spine obtained with the sagittal and coronal reconstructed imaging.The CT exam was performed using one or more the following dose reduction techniques: Automated exposure control, adjustment of the MA and/or Kv according to patient size, or use of the iterative reconstruction technique. HISTORY: Fell. Lower back pain COMPARISON: None FINDINGS: The last fully segmented vertebral pair is operationally defined as L5/S1. POST SURGERY CHANGES: None BONY ALIGNMENT: Adequate bony alignment identified. SPINAL CANAL:Patent bony central canal LUMBAR FRACTURE: L1 left transverse process fracture. Remote appearing left T12 rib fracture. BONY LESIONS: None KIDNEYS: No hydronephrosis is identified. AORTA: No aortic aneurysm is seen. Atherosclerosis Multilevel mild spondylosis. Upper and mid lumbar anterior hyperostosis. Multilevel facet degeneration Assessment of disc herniation limited with CT examination. No obvious disc herniation seen with CT exam. IMPRESSION:L1 left transverse process fracture. Age-indeterminate. Multilevel level degeneration with a hyperostosis. Impression dictated by: Phani Owens M.D. 08/02/2024 10:02 PM Dictation Location: [employer] Electronically authenticated by: [id number] Y Date: 08/02/2024 22:02
--- NOTE | 2024-08-02 20:54 | CT_ITS ---
[address] [address] Patient Name: DES SIMONS MRN: [id number] date: 1940 Sex: M Assigned Patient Location: ED.MAIN Current Patient Location: ED.MAIN Accession/Order Number: [id number] Exam Date: 08/02/2024 21:43 Report Date: 08/02/2024 21:45 At the request of: BELKIS MARTINS Procedure: CT cervical spine wo con CT Cervical Spine withoutcontrast TECHNIQUE: Axial imaging with 2-D and 3-D reconstruction. The CT exam was performed using one or more the following dose reduction techniques: Automated exposure control, adjustment of the MA and/or Kv according to patient size, or use of the iterative reconstruction technique. COMPARISON: 06/20/2024 HISTORY: Fell. Head injury. POST SURGERY CHANGES: None BONY ALIGNMENT: Adequate BONY SPINAL CANAL: Patent central bony canal FRACTURE: None BONY LESIONS: None SOFT TISSUES: Unremarkable DEGENERATIVE CHANGES: C5-6 and C6-7 advanced spondylosis. LUNG APICES: Unremarkable ADDITIONAL FINDINGS: CT/CT cervical spine wo con IMPRESSION: No acute process Impression dictated by: Phani Owens M.D. 08/02/2024 9:45 PM Dictation Location: [place] [address] Electronically authenticated by: [id number] Y Date: 08/02/2024 21:45
--- NOTE | 2024-08-02 20:56 | ED_ITS ---
HPI HPI - Fall General Chief Complaint: Fall Stated Complaint: FALL Time Seen by Provider: 08/02/24 20:54 History of Present Illness HPI Narrative: 83 year old male patient presents to the ED via EMS for a fall out of bed tonight. He has a laceration to his right ear. Pt has hx dementia; he is oriented to self only. Reports discomfort to his lower and mid lower back with palpation. Fresh bruising noted to right lower back near buttock. Denies pain to his head, neck, chest, abdomen, hips, and extremities. His tetanus status was updated 06/02/24 per his records. Pt is answering yes/no questions. Pt is following commands. Pt has history of falls. Pt presented from his extended care facility. Related Data Home Medications ?Medication ?Instructions ?Recorded ?Confirmed acetaminophen 325 mg tablet 650 mg PO Q6H PRN fever or pain 06/02/24 06/27/24 amlodipine 2.5 mg tablet (Norvasc) 5 mg PO DAILY 06/0206/27/24 aspirin 81 mg tablet,delayed 81 mg PO DAILY 06/02/24 0 06/27/24 release (Adult Low Dose Aspirin) Held on 06/22/24. Instructions: Resume on 06/27/24. atorvastatin 40 mg tablet 40 mg PO QPM 06/02/24 ergocalciferol (vitamin D2) 1,250 1,250 mcg PO QWEEK 0 06/02/24 06/27/24 mcg (50,000 unit) capsule finasteride 5 mg tablet 5 mg PO QPM 06/02/24 5 fluoxetine 20 mg capsule 20 mg PO DAILY 06/02/2406/12 melatonin 5 mg tablet 5 mg PO QPM 06/02/24 5 memantine 10 mg tablet 10 mg PO DAILY 06/02/2406/12 metformin 500 mg tablet 500 mg PO BID 06/02/2406/27 quetiapine 25 mg tablet (Seroquel) 25 mg PO QPM 06/27/24 lorazepam 0.5 mg tablet (Ativan) 0.5 mg PO BID 5 06/27/24 Allergies Allergy/AdvReac Type Severity Reaction Status Date / Time No Known Drug Allergies Allergy Verified 08/02/24 20:57 Opioid HPI Opioid Management Most Recent Pain and Opioid Data: Last ORT Total Score 2 06/20/24, 21:44 Last ORT Risk Category Low Risk 06/20/24, 21:44 Review of Systems ROS Narrative ROS is limited due to patient history of dementia, current mental status. Constitutional Denies: fever Ears, nose, mouth, and throat Denies: neck pain Cardiovascular Denies: chest pain Respiratory Denies: shortness of breath Gastrointestinal Denies: abdominal pain or nausea Musculoskeletal Reports: back pain; Denies: neck pain or extremity pain Integumentary/Breast Reports: new lesion (right ear laceration) Neurological Denies: headache [facility] (Updated 08/02/24 @ 22:08 by Pallavi Acevedo) Zoster without complications ?B02.9 - Zoster without complications (ICD-10) Cognitive communication deficit ?R41.841 - Cognitive communication deficit (ICD-10) Dysphagia ?R13.10 - Dysphagia, unspecified (ICD-10) Tremor ?R25.1 - Tremor, unspecified (ICD-10) Major depressive disorder ?F32.9 - Major depressive disorder, single episode, unspecified (ICD-10) Atherosclerotic heart disease ?I25.10 - Atherosclerotic heart disease of [place] coronary artery without angina pectoris (ICD-10) Male erectile disorder ?N52.9 - Male erectile dysfunction, unspecified (ICD-10) Adjustment insomnia ?F51.02 - Adjustment insomnia (ICD-10) Sleep apnea ?G47.30 - Sleep apnea, unspecified (ICD-10) Dementia ?F03.90 - Unspecified dementia, unspecified severity, without behavioral disturbance, psychotic disturbance, mood disturbance, and anxiety (ICD-10) Type 2 diabetes mellitus ?E11.9 - Type 2 diabetes mellitus without complications (ICD-10) Essential (primary) hypertension ?I10 - Essential (primary) hypertension (ICD-10) BPH (benign prostatic hyperplasia) ?N40.0 - Benign prostatic hyperplasia without lower urinary tract symptoms (ICD-10) Hyperlipidemia ?E78.5 - Hyperlipidemia, unspecified (ICD-10) Difficulty in walking ?R26.2 - Difficulty in walking, not elsewhere classified (ICD-10) Muscle weakness ?M62.81 - Muscle weakness (generalized) (ICD-10) Nutritional deficiency ?E63.9 - Nutritional deficiency, unspecified (ICD-10) Orthostatic hypotension ?I95.1 - Orthostatic hypotension (ICD-10) Social History Highest level of school completed/degree received: don't know Exam Constitutional Vital Signs, click to edit/add: Last Vital Signs Temp 97.8 F 08/02/24 20:51 Pulse 84 08/02/24 20:51 Resp 12 08/02/24 20:51 BP 144/77 H 08/02/24 20:51 Pulse Ox 95 08/02/24 20:51 O2 Del Method Room Air 08/02/24 20:51 Common normals: no apparent distress General appearance: cooperative; not ill appearing HENMT Common normals: moist oral mucous membranes and oropharynx normal Head and scalp: no Charles's sign and no raccoon eyes External ear: external ear abnormal Mouth: lip normal and tongue normal Throat: posterior oropharynx normal and uvula midline Other: 3 cm laceration to helix of right ear. It extends through the ear; sutures indicated. 4 cm laceration to scalp just above and behind right ear; sutures indicated. No active bleeding currently. Eye Common normals: PERRL, EOMs intact bilaterally, conjunctivae normal and no scleral icterus Neck & C-Spine Common normals: supple Cervical spine: no cervical spine tenderness and no paracervical muscle tenderness Chest Common normals: inspection of chest normal and palpation of chest normal Chest: symmetrical chest wall rise Respiratory Common normals: normal respiratory effort and clear to auscultation bilaterally Effort & inspection: symmetric chest movement Cardio Common normals: regular rate and regular rhythm GI Common normals: soft to palpation and non-tender Back & Pelvis Thoracic spine/upper back: normal to inspection, thoracic spinal tenderness and paraspinal muscle tenderness Lumbar spine/lower back: lumbar spinal tenderness and paraspinal muscle tenderness Other: Bruising to right lower back just above right buttock. Extremity Other: Denies tenderness to extremities. No obvious deformity noted. Skin tears noted to BUE. Pt moving digits of both hands and feet. Neuro Common normals: CN's II-XII intact bilaterally and moves all extremities Sensorium/orientation: orientation impaired and other (Pt responsive to verbal stimuli.) Other: Pt moves extremities. RUE motion is limited; appears contracted. Pt follows commands. Pt answers yes/no questions. Course Vital Signs Vital signs: Vital Signs Temperature 97.8 F 08/02/24 20:51 Pulse Rate 84 08/02/24 20:51 Respiratory Rate 12 08/02/24 20:51 Blood Pressure 144/77 H 08/02/24 20:51 Pulse Oximetry 95 08/02/24 20:51 Oxygen Delivery Method Room Air 08/02/24 20:51 Temperature 97.8 F 08/02/24 20:51 Pulse Rate 84 08/02/24 20:51 Respiratory Rate 12 08/02/24 20:51 Blood Pressure 144/77 H 08/02/24 20:51 Pulse Oximetry 95 08/02/24 20:51 Oxygen Delivery Method Room Air 08/02/24 20:51 MDM - Fall MDM Narrative Medical decision making narrative: Sutures were placed in the ear and scalp laceration. He tolerated the procedure well. CT scans of the head, c-spine, t-spine, and l-spine were completed. X-rays of the chest and pelvis were completed. Imaging showed an age-indeterminate L1 left transverse process fracture and remote-appearing left T12 rib fracture. The patient will be discharged back to his ECF. He was sleeping here in the d epartment for most of the ED visit. Instructions were provided to follow up with his pcp and an orthopedist for a recheck, further evaluation and treatment. Medical Records Attestation: I reviewed the patient's medical records. Imaging Data XR and CT: Radiologist's impression: ITS Impressions Cervical Spine CT 08/02/24 20:54 IMPRESSION: No acute process Impression dictated by: Phani Owens M.D. 08/02/2024 9:45 PM Dictation Location[facility] Electronically authenticated by: [id number] Y Date: 08/02/2024 21:45 Chest X-Ray 08/02/24 20:54 IMPRESSION: No acute process. Impression dictated by: Phani Owens M.D. 08/02/2024 9:51 PM Dictation Location: [facility] [employer] Electronically authenticated by: [id number] Y Date: 08/02/2024 21:[address] 08/02/24 20:54 IMPRESSION: No acute findings. Impression dictated by: Phani Owens M.D. 08/02/2024 9:43 PM Dictation Location: [facility] Electronically authenticated by: [id number] Y Date: 08/02/2024 21:[address] 08/02/24 20:54 IMPRESSION: NO ACUTE BONY PROCESS. CT LUMBAR SPINE WITHOUT CONTRAST TECHNIQUE: Axial acquisition of the lumbar spine obtained with the sagittal and coronal reconstructed imaging.The CT exam was performed using one or more the following dose reduction techniques: Automated exposure control, adjustment of the MA and/or Kv according to patient size, or use of the iterative reconstruction technique. HISTORY: Fell. Lower back pain COMPARISON: None FINDINGS: The last fully segmented vertebral pair is operationally defined as L5/S1. POST SURGERY CHANGES: None BONY ALIGNMENT: Adequate bony alignment identified. SPINAL CANAL:Patent bony central canal LUMBAR FRACTURE: L1 left transverse process fracture. Remote appearing left T12 rib fracture. BONY LESIONS: None KIDNEYS: No hydronephrosis is identified. AORTA: No aortic aneurysm is seen. Atherosclerosis Multilevel mild spondylosis. Upper and mid lumbar anterior hyperostosis. Multilevel facet degeneration Assessment of disc herniation limited with CT examination. No obvious disc herniation seen with CT exam. IMPRESSION:L1 left transverse process fracture. Age-indeterminate. Multilevel level degeneration with a hyperostosis. Impression dictated by: Phani Owens M.D. 08/02/2024 10:02 PM Dictation Location: [facility] Electronically authenticated by: [id number] Y Date: 08/02/2024 22:02 Pelvis X-Ray 08/02/24 20:54 IMPRESSION:No acute displaced fracture Impression dictated by: Phani Owens M.D. 08/02/2024 9:52 PM Dictation Location: [facility] Electronically authenticated by: [id number] Y Date: 08/02/2024 21:[address] 08/02/24 20:54 IMPRESSION: NO ACUTE BONY PROCESS. CT LUMBAR SPINE WITHOUT CONTRAST TECHNIQUE: Axial acquisition of the lumbar spine obtained with the sagittal and coronal reconstructed imaging.The CT exam was performed using one or more the following dose reduction techniques: Automated exposure control, adjustment of the MA and/or Kv according to patient size, or use of the iterative reconstruction technique. HISTORY: Fell. Lower back pain COMPARISON: None FINDINGS: The last fully segmented vertebral pair is operationally defined as L5/S1. POST SURGERY CHANGES: None BONY ALIGNMENT: Adequate bony alignment identified. SPINAL CANAL:Patent bony central canal LUMBAR FRACTURE: L1 left transverse process fracture. Remote appearing left T12 rib fracture. BONY LESIONS: None KIDNEYS: No hydronephrosis is identified. AORTA: No aortic aneurysm is seen. Atherosclerosis Multilevel mild spondylosis. Upper and mid lumbar anterior hyperostosis. Multilevel facet degeneration Assessment of disc herniation limited with CT examination. No obvious disc herniation seen with CT exam. IMPRESSION:L1 left transverse process fracture. Age-indeterminate. Multilevel level degeneration with a hyperostosis. Impression dictated by: Phani Owens M.D. 08/02/2024 10:02 PM Dictation Location: [place] [address] Electronically authenticated by: [id number] Y Date: 08/02/2024 22:02 Discharge Plan Discharge Chief Complaint: Fall Clinical Impression: Laceration of scalp, Laceration of ear, Closed L1 vertebral fracture Fall Qualifiers: Encounter type: initial encounter Qualified Code(s): W19.XXXA - Unspecified fall, initial encounter Patient Disposition: Home, Self-Care Time of Disposition Decision: 22:07 Condition: Good Mode of Transportation: Private Vehicle Prescriptions / Home Meds: No Action acetaminophen 325 mg tablet 650 mg PO Q6H PRN (Reason: fever or pain) aspirin [Adult Low Dose Aspirin] 81 mg tablet,delayed release (DR/EC) 81 mg PO DAILY atorvastatin 40 mg tablet 40 mg PO QPM ergocalciferol (vitamin D2) 1,250 mcg (50,000 unit) capsule 1,250 mcg PO QWEEK finasteride 5 mg tablet 5 mg PO QPM fluoxetine 20 mg capsule 20 mg PO DAILY melatonin 5 mg tablet 5 mg PO QPM memantine 10 mg tablet 10 mg PO DAILY metformin 500 mg tablet 500 mg PO BID amlodipine [Norvasc] 2.5 mg tablet 5 mg PO DAILY quetiapine [Seroquel] 25 mg tablet 25 mg PO QPM lorazepam [Ativan] 0.5 mg tablet 0.5 mg PO BID Print Language: British Instructions: Head Injury (ED), Care For Your Absorbable Stitches (ED) Additional Instructions: Return to the ER for worsening symptoms. The stitches are absorbable. Keep the stitches clean and dry. There is an age-indeterminate L1 transverse process fracture. Please follow up with an orthopedist for a recheck, further evaluation and treatment. Referrals: ADEOLA CERON [Primary Care Provider, Family Practice] - 1 week Tom Bethea MD [Physician, Orthopedics] - 1 week Procedures ED Laceration Laceration Laceration 1: Site: scalp Size (cm): 4 Description: linear Depth: simple, single layer Anesthetic used: lidocaine 1% Anesthesia technique: local infiltration Skin layer closed with: Vicryl Size (cm): 5-0 Number of sutures: 4 Technique: simple, interrupted Laceration 2: Site: other (Ear) Side (if applicable): right Size (cm): 3 Description: irregular Depth: [id number]-fnsynpt Anesthetic used: lidocaine 1% Anesthesia technique: local infiltration Pre-repair: irrigated extensively Skin layer closed with: Vicryl Size (cm): 5-0 Number of sutures: 8 Technique: simple, interrupted
--- OUTSIDE RECORDS SUMMARY | 2024-08-02 21:07 | XMS_ITS | Encounter Summary ---
Author Organization [facility] Address [address] [place] [address] Care Team Providers Care Apple Peeler Operator Name Role Phone Phani Wynne DO Unavailable [phone] Phani Wynne DO Primary Care Provider [phone] Massiel VillalbaW Unavailable [phone] Sri Aguiar RN Unavailable Unavailable Encounter Details Date Type Department Care Team (Late st Contact Info) Description 02/04/2023 Telephone [facility] [address] [facility] [address] [place] [address] Don Jett MD [address] [facility] [address] [place] [address] Social History Tobacco Use Types Packs/Day Years Used Date Smoking Tobacco: Former Cigarettes Q uit: 06/11/1985 Smokeless Tobacco: Never Comments:Ex moderate cigaret te smoker (10-19 cigarettes/day) Alcohol Use Standard Drinks/Week Comments Yes 0 (1 standard drink = 0.6 oz pure alcohol) Alcohol: 6 or more drinks less than monthly; 1-2 drinks/monthly or less; Caffeine: 3-4 cups/day PHQ-2 Answer Date Recorded Patient Health Questionnaire-2 Score 0 08/26/2022 Sex and Gender Information Value Date Recorded Sex Assigned at Not on file Legal Sex Male 6:41 PM EDT Gender Identity Not on file Sexual Orientation Not on file documented as of this encounter Miscellaneous Notes * Telephone Encounter - Pj Ann - 02/04/2023 11:[address] Jett: Can you please send 90 day with 3 refills? Sent/pt. Notified. * Telephone Encounter - Pj Ann - 02/04/2023 11:53 AM EST Alex Jacob 44: Spouse Gabi [phone]: PCP Dr. Wynne: stating is out of medication and only has one left. Donepezil 10mg 1 tab qhs. Pharmacy [facility]. Teams sent to Dr. Jett. documented in this encounter Plan of Treatment Upcoming Encounters Date Type Department Care Team (Late st Contact Info) Description 05/16/2025 11:35 AM EST Office Visit [facility] [address] [place] [address] Genevieve Baeza MD [address] [place] [address] documented as of this encounter Visit Diagnoses Diagnosis MCI (mild cognitive impairment) Mild cognitive impairment, so stated documented in this encounter Care Teams Apple Peeler Operator Relationship Specialty Start Date End Date Phani Wynne DO [address] [place] [address] PCP - ACO Reach 08/05/22 Phani Wynne DO [address] [place] [address] PCP - General Internal Medicine 08/26/22 Massiel Villalba LSW Candy Forming Machine Operator Family Medicine 05/22/24 05/22/24 Sri Aguiar, SEDA Registered Nurse Family Medicine 05/22/24 06/13/24 documented as of this encounter
--- OUTSIDE RECORDS SUMMARY | 2024-08-02 21:07 | XMS_ITS | Encounter Summary ---
Author Organization [facility] Address [address] [place] [address] Care Team Providers Care Baggage Smasher Name Role Phone Phani Wynne DO Unavailable [phone] Phani Wynne DO Primary Care Provider [phone] Encounter Details Date Type Department Care Team (Late st Contact Info) Description 06/28/2024 Abstract [facility] [address] [facility] [address] [place] [id number] Phani Wynne DO [address] [facility] [address] [place] [address] Social History Tobacco Use Types Packs/Day Years Used Date Smoking Tobacco: Former Cigarettes Q uit: 06/11/1985 Smokeless Tobacco: Never Comments:Ex moderate cigaret te smoker (10-19 cigarettes/day) Alcohol Use Standard Drinks/Week Comments Yes 0 (1 standard drink = 0.6 oz pure alcohol) Alcohol: 6 or more drinks less than monthly; 1-2 drinks/monthly or less; Caffeine: 3-4 cups/day AUDIT-C Answer Date Recorded Q1: How often do you have a drink containing alc ohol? Never 08/31/2023 Average Number of Drinks Not on file 024 Q3: How often do you have si x or more drinks on one occasion? Less than monthly 08/31/2023 PHQ-2 Answer Date Recorded Patient Health Questionnaire-2 Score 5 08/31/2023 Sex and Gender Information Value Date Recorded Sex Assigned at Not on file Legal Sex Male 6:41 PM EDT Gender Identity Not on file Sexual Orientation Not on file documented as of this encounter Plan of Treatment Upcoming Encounters Date Type Department Care Team (Late st Contact Info) Description 05/16/2025 11:35 AM EST Office Visit [facility] [address] [place] [address] Genevieve Baeza MD [address] [place] [address] documented as of this encounter Visit Diagnoses Not on filedocumented in this encounter Additional Health Concerns Assessment Noted Time PHQ-9 Depression Total Score: 19 024 10:00 AM EDT documented as of this encounter Care Teams Baggage Smasher Relationship Specialty Start Date End Date Phani Wynne DO [address] [facility] [address] [place] [address] PCP - ACO Reach 08/05/22 Phani Wynne DO [address] [facility] [address] [facility] [address] [place] [address] PCP - General Internal Medicine 08/26/22 documented as of this encounter
--- OUTSIDE RECORDS SUMMARY | 2024-08-02 21:07 | XMS_ITS | Encounter Summary ---
Author Organization [facility] Address [address] [place] [address] Care Team Providers Care Perinatal Tech Name Role Phone Phani Wynne DO Unavailable [phone] Phani Wynne DO Primary Care Provider [phone] Massiel Villalba MANGANESE WHEELER Unavailable [phone] Sri Aguiar RN Unavailable Unavailable Encounter Details Date Type Department Care Team (Late Contact Info) Description 05/24/2023 Abstract [facility] [address] [facility] [address] [place] [address] Genevieve Baeza MD [address] [facility] [address] [place] [address] Social History Tobacco Use Types [...] Encounters Date Type Department Care Team (Late Contact Info) Description 05/16/2025 11:35 AM EST Office Visit [facility] [address] [facility] [address] [place] [address] Genevieve Baeza MD [address] [place] [address] documented as of this encounter Visit Diagnoses Not on filedocumented in this encounter Care Teams Perinatal Tech Relationship Specialty Start Date End Date Phani Wynne DO [address] [place] [address] PCP - ACO Reach 08/05/22 Phani Wynne DO [address] [place] [address] PCP - General Internal Medicine 08/26/22 Massiel Villalba LSW Salad Maker Family Medicine 05/22/24 05/22/24 Sri Aguiar, SEDA Registered Nurse Family Medicine 05/22/24 06/13/24 documented as of this encounter
--- OUTSIDE RECORDS SUMMARY | 2024-08-02 21:07 | XMS_ITS | Patient Health Record ---
Author Organization [facility] Address [address] [place] [address] [place] [address] Care Team Providers Care Secondary Special Education Teacher Name Role Phone Zach Frias Primary Care Provider Leonidas Jennings Unavailable [phone] Reason For Referral No Information Encounters Encounter Location Date Provider Diagnosis [facility] [place] [address] 07/04/2024 Leonidas Almeida Plan Of Treatment No Information Insurance Providers Payer Name Payer Address Payer Phone Subscriber Number Group Number Insured Name Patient Relationship to Insured Coverage Start Date Coverage End Date Medicare Part B [id number] Part [facility] [place] [address] [place] [address] [id number] Alex Jacob Self - patient is the insured [employer] and [employer] [address] [place] [address] [id number] Alex Jacob Self - patient is the insured
--- OUTSIDE RECORDS SUMMARY | 2024-08-02 21:07 | XMS_ITS | Encounter Summary ---
Author Organization [facility] Address [address] [place] [address] Care Team Providers Care Funeral Workers Name Role Phone Phani Wynne DO Unavailable [phone] Phani Wynne DO Primary Care Provider [phone] Sri Aguiar RN Unavailable Unavailable Encounter Details Date Type Department Care Team (Late st Contact Info) Description 05/30/2024 Abstract [facility] [address] [facility] [address] [place] [address] Phani Wynne DO [address] [facility] [address] [place] [address] Social History Tobacco Use Types Packs/Day Years [...] DERM [address] [place] [address] Genevieve Baeza MD [address] [place] [address] documented as of this encounter Visit Diagnoses Not on filedocumented in this encounter Additional Health Concerns Assessment Noted Time PHQ-9 Depression Total Score: 19 024 10:00 AM EDT documented as of this encounter Care Teams Funeral Workers Relationship Specialty Start Date End Date Phani Wynne DO [address] [place] [address] PCP - ACO Reach 08/05/22 Phani Wynne DO [address] [place] [address] PCP - General Internal Medicine 08/26/22 Sri Aguiar, SEDA Registered Nurse Family Medicine 05/22/24 06/13/24 documented as of this encounter
--- OUTSIDE RECORDS SUMMARY | 2024-08-02 21:07 | XMS_ITS | Encounter Summary ---
Author Organization [facility] Address [address] [place] [address] Care Team Providers Care Brake Lining Driller Name Role Phone Phani yWnne DO Unavailable [phone] Phani Wynne DO Primary Care Provider + [phone] Encounter Details Date Type Department Care Team (Late st Contact Info) Description 06/28/2024 Results Follow-Up [facility] [address] [place] [phone] Soledad Matthew PA [address] [place], [place] [id number] Social History Tobacco Use Types Packs/Day Years [...] encounter Miscellaneous Notes * Telephone Encounter - MIMA Daniel - 06/28/2024 12:33 PM EDT Labs reviewed. ABG did not reveal hypercapnia. His pcO2 was low but O2 saturations okay. His sodiumis high at 149 which could be contributing to his symptoms. I am not sure what capability they haveat his care facility as far as IV fluids etc, but if his covering physician there would like him treated for his sodium, and family is agreeable, I am not opposed for him being checked out at the hospital. Or if they just want to start with hydration if patient cooperates/tolerates. Thanks! documented in this encounter Plan of Treatment Upcoming Encounters Date Type Department Care Team (Late st Contact Info) Description 05/16/2025 11:35 AM EST Office Visit [facility] [address] [place] [phone] Genevieve Baeza MD [address] [place] [address] documented as of this encounter Visit Diagnoses Not on filedocumented in this encounter Additional Health Concerns Assessment Noted Time PHQ-9 Depression Total Score: 19 024 10:00 AM EDT documented as of this encounter Care Teams Brake Lining Driller Relationship Specialty Start Date End Date Phani Wynne DO [address] [place] [address] PCP - ACO Reach 08/05/22 Phani Wynne DO [address] [place] [address] PCP - General Internal Medicine 08/26/22 documented as of this encounter
--- OUTSIDE RECORDS SUMMARY | 2024-08-02 21:07 | XMS_ITS | Clinical Summary ---
Author Organization [facility] Address [address] [place] [address] Care Team Providers Care Email Operations Manager Name Role Phone Phani Wynne DO Unavailable [phone] Phani Wynne DO Primary Care Provider Allergies Active Allergy Reactions Criticality Noted Date Comments Dulaglutide 08/25/2022 Other Reaction(s): N & V Medications aspirin (ASPIR) 81 MG EC tablet Take 81 mg by mouth 1 (one) time Active nystatin-triamcino lone (Mycolog II) cream Apply topically in the morning and before bedtime. Active Alcohol Sheets (Alcoh-Wipe) sheetIndications:T ype 2 diabetes mellitus with other specified complication, unspecified whether skilled nursing insulin use (CMS/[facility]) Test daily before all meals/snacks and once before bedtime. 1 each 12/11/19 23 Active FLUoxetine (PROzac) 40 MG capsuleIndications :Recurrent major depressive disorder, in partial remission (HCC) (CMS/HCC) Take 1 capsule (40 mg) by mouth Daily 90 capsule 3 08/01/19 24 Active Additional Information Patient taking differently: 20 mgOral Daily, Reported on 07/02/2024 finasteride (Proscar) 5 MG tabletIndications: Essential hypertension (CMS/HCC) TAKE 1 TABLET BY MOUTH EVERY DAY 90 tablet 3 08/01/19 24 Active glucose blood (Accu-Chek Lacy Plus) test stripIndications:T ype 2 diabetes mellitus with other specified complication, unspecified whether technician terminal and repeater insulin use (CMS/[facility]) 1 each by Other route Daily 100 each 3 08/02/19 24 Active Lancets Misc. (Accu-Chek Softclix Lancet Dev) kitIndications:Typ e 2 diabetes mellitus with other specified complication, unspecified whether technician terminal and repeater insulin use ([facility]) 1 Device by Other route Daily Test daily 1 kit 08/02/19 24 Active terazosin (Hytrin) 1 MG capsuleIndications :Essential hypertension ([facility]) Take 1 capsule (1 mg) by mouth Daily 90 capsule 3 12/01/19 24 Active atorvastatin (Lipitor) 40 MG tabletIndications: Mixed hyperlipidemia ([facility]) Take 1 tablet (40 mg) by mouth at bedtime 90 tablet 3 12/20/19 24 Active donepezil (Aricept) 10 MG tabletIndications: MCI (mild cognitive impairment) Take 1 tablet (10 mg) by mouth at bedtime 90 tablet 3 01/03/20 24 Active midodrine (Proamatine) 2.5 MG tabletIndications: Hypotension, unspecified hypotension type Take 1 tablet (2.5 mg) by mouth in the morning and 1 tablet (2.5 mg) before bedtime. 180 tablet 2 05/04/19 25 Active metFORMIN (Glucophage) 500 MG tabletIndications: Type 2 diabetes mellitus with other specified complication, without long-term current use of insulin Take 1 tablet (500 mg) by mouth in the morning. Take with meals. 90 tablet 2 05/04/19 25 Active memantine (Namenda) 10 MG tabletIndications: MCI (mild cognitive impairment) Take 1 tablet by mouth in the morning and 1 tablet before bedtime. 180 tablet 05/07/19 25 Active amLODIPine (Norvasc) 5 MG tablet Take 5 mg by mouth Daily Active QUEtiapine (SEROquel) 25 MG tablet Take 25 mg by mouth at bedtime Active LORazepam (Ativan) 0.5 MG tablet Take 0.5 mg by mouth in the morning and 0.5 mg before bedtime. Active melatonin 5 MG tablet Take by mouth Active ergocalciferol (Vitamin D-2) 1.25 MG (26809 UT) capsule Take 1.25 mg by mouth 1 (one) time per week Active acetaminophen (Tylenol) 325 MG chewable tablet Chew every 6 (six) hours 06/23/19 25 Active tadalafil (Cialis) 20 MG tablet Take by mouth in the morning. 05/19/19 25 Active triamcinolone (Kenalog) 0.1 % creamIndications:H erpes zoster without complication Apply to affected areas, up to twice a day when flared, do not use one the face, groin, or underarms, 30 day supply 80 g 11 07/03/19 25 Active Active Problems Problem Noted Date Diagnosed Date MICHAEL on CPAP 08/31/2023 Type 2 diabetes mellitus with other specified co mplication 08/20/2022 Mixed hyperlipidemia 08/20/2022 CAD (coronary artery disease) 08/20/2022 Stented coronary artery 08/20/2022 Essential hypertension 08/20/2022 MCI (mild cognitive impairment) 08/20/2022 Major depressive disorder in partial remission ( HCC) 08/20/2022 Obesity due to excess calories 08/20/2022 Encounters Date Type Department Care Team Description 07/09/2024 Abstract [facility] [address] [place] [phone] Phani Wynne, 07/03/2024 Telephone [facility] [address] [place] [phone] Diana Andrea MA Error (VOID this visit) 07/02/2024 3:05 PM EDT Office Visit [facility] [address] [place] [address] Genevieve Baeza MD Herpes zoster without complication (Primary Dx) 07/02/2024 Bamboo flowsheet [facility] [address] [place] [phone] Genevieve Baeza MD 07/02/2024 Travel 06/28/2024 Abstract [facility] [address] [place] [phone] Phani Wynne, 06/28/2024 Results Follow-Up [facility] [address] [place] [phone] Soledad Matthew PA 06/28/2024 Clinisync Result Encounter [facility] External Department Unsolicited Soledad Matthew PA 06/27/2024 10:00 AM EDT Office Visit [facility] [address] [place] [address] Soledad Matthew PA Alteration of awareness (Primary Dx); Senile dementia, uncomplicated (CMS/[facility]); Memory loss 06/27/2024 Clinisync Result Encounter [facility] External Department Unsolicited ProviderReese External Data 06/27/2024 Bamboo flowsheet [facility] [address] [place] [phone] Soledad Matthew PA 06/26/2024 Clinisync Result Encounter [facility] External Department Unsolicited Zach Frias MD 06/13/2024 Patient Outreach [facility] [place] [address] [place] [address] Bell Delacruz, JENIFER 06/04/2024 Patient Outreach [facility] [place] [address] [place] [address] Bell Delacruz, SENIOR VISUAL DESIGNER 06/04/2024 Clinisync Result Encounter [facility] External Department Unsolicited Zach Frias MD 05/31/2024 11:00 AM EDT Office Visit [facility] [address] [place] [phone] Phani Wynne DO Type 2 diabetes mellitus with other specified complication, without long-term current use of insulin ([facility]) (Primary Dx) 05/30/2024 Patient Outreach [facility] [place] [address] [place] [address] Bell Delacruz, SENIOR VISUAL DESIGNER 05/30/2024 Abstract [facility] [address] [place] [phone] Unallocated, Archie Olson MD 05/30/2024 Abstract [facility] [address] [place] [address] Phani Wynne DO 05/22/2024 Patient Outreach [facility] [place] [address] [place] [address] Sri Aguiar, SEDA 05/21/2024 Telephone [facility] [address] [place] [address] Yasmin Jett MA Questions regarding reoccurring falls 05/21/2024 Patient Outreach [facility] [place] [address] [place] [address] Sri Aguiar, SEDA 05/17/2024 11:35 AM EST Office Visit [facility] [address] [place] [address] Genevieve Baeza MD Herpes zoster without complication (Primary Dx); Seborrheic keratosis, inflamed; Seborrheic keratosis; Actinic keratosis 05/17/2024 Bamboo flowsheet [facility] [address] [place] [address] Genevieve Baeza MD 05/17/2024 Travel 05/07/2024 Refill [facility] [address] [place] [address] Phani Wynne DO MCI (mild cognitive impairment) from Last 3 Months Immunizations Immunization Administration Dates Next Due Influenza, High Dose Seasona l, Preservative Free 11/24/2021,12/04/2020,12/10/2015 Influenza, Seasonal, Quadriv alent, Adjuvanted 11/29/2022 Influenza, injectable, quadr ivalent, preservative free 12/05/2014 Influenza, seasonal, injectable 11/12/2018 Influenza, trivalent, adjuvanted 03/01/2024,10/0 07/2019,01/07/2018 Moderna SARS-CoV-2 Booster Vaccination Pneumococcal Conjugate PCV 13 01/01/2019, 019,09/27/2018 Pneumococcal Polysaccharide PPSV23 09/27/2018, Zoster, live 08/20/2016 Family History Medical History Relation Name Comments Heart disease Father Multiple sclerosis Mother Melanoma Neg Hx Relation Name Status Comments Brother 1 Daughter Alive Father Mother Sister 2 Son Alive Social History Tobacco Use Types Packs/Day Years [...] on file Sexual Orientation Not on file Last Filed Vital Signs Vital Sign Reading Time Taken Comments Blood Pressure 130/72 06/27/2024 9:57 AM EDT Pulse 49 03/01/2024 11:07 AM EST Temperature - - Respiratory Rate - - Oxygen Saturation 97% 03/01/2024 11:07 AM EST Inhaled Oxygen Concentration - - Weight 86.2 kg (190 lb) 06/27/2024 9:57 AM EDT Height 166.4 cm (5' 5.5 ) 06/27/2024 9:57 AM EDT Body Mass Index 31.14 06/27/2024 9:57 AM EDT Plan of Treatment Upcoming Encounters Date Type Department Care Team (Late st Contact Info) Description 05/16/2025 11:35 AM EST Office Visit [facility] [address] [place] [phone] Genevieve Baeza MD [address] [place] [address] Health Maintenance Due Date Last Done Comments Diabetes: Retinopathy Screening 01/08/2023 01/08/2021, 03/21/2019, 10/05/2017 Diabetes: Hemoglobin A1C 05/27/2024 024, 11/16/2023, 08/25/2023, Additional history exists Diabetes: Urine Protein Screening 02/26/2025 02/27/2024, 11/16/2023, 08/19/2022, Additional history exists Pneumococcal Vaccine: 65+ Years Completed 09/13/2022, 01/01/2019, 12/31/2018, Additional history exists Influenza Vaccine Completed 03/01/2024, , 11/24/2021, Additional history exists Procedures Procedure Name Priority Date/Time Associated Diagnosis Comments ALL ARTERIAL BLOOD GAS Routine 06/28/2024 9:53 AM EDT [facility] CMP (CMP) (FOR REMOTE [facility] USE) Routine 06/28/2024 9:51 AM EDT ALL CBC WITH AUTO DIFF Routine 06/28/2024 9:51 AM EDT BLOOD CULTURE 2 Routine 06/27/2024 1:10 PM EDT BLOOD CULTURE 1 Routine 06/27/2024 1:03 PM EDT ALL AMMONIA Routine 06/26/2024 1:17 AM EDT ALL BASIC METABOLIC PANEL Routine 06/04/2024 11:26 AM EDT ALL CBC WITH AUTO DIFF Routine 06/04/2024 11:26 AM EDT TBH URINE MICROSCOPIC ONLY Routine 06/04/2024 11:10 AM EDT TBH UA (CLEAN/CATCH) MICROSCOPIC IF INDICATE Routine 06/04/2024 11:10 AM EDT CRYOTHERAPY SKIN LESION Routine 05/17/2024 12:16 PM EST Actinic keratosis CRYOTHERAPY SKIN LESION Routine 05/17/2024 12:12 PM EST Seborrheic keratosis, inflamed MICROALBUMIN / CREATININE URINE RATIO Routine 02/27/2024 10:39 AM EST HEMOGLOBIN A1C WITH EAG Routine 02/27/2024 10:39 AM EST COLOR FUNDUS PHOTOGRAPHY - OU - BOTH EYES Routine 01/08/2021 12:00 PM EDT from Last 3 Months or Most Recently Relevant to Health Maintenance Results * (ABNORMAL) ALL ARTERIAL BLOOD GAS (06/28/2024 9:53 AM EDT) PH ABG 7.439 7.350 - 7.450 TBH ABG PCO2 32.4(L) 35.0 - 45.0 mmHg TBH PO2 ABG 78.6(L) 80.0 - 100.0 mmHg TBH HCO3 ABG 21.9(L) 22.0 - 26.0 mmol/L TBH BASE EXCESS ABG -2.2(L) -2.0 - 2.0 mmol/L TBH OXYGEN SATURATION ABG 95.6 % TBH STANISLAV TEST POSITIVE POSITIVE TBH O2 MODE RA TBH PUNCTURE SITE R RAD TBH 06/28/2024 9:53 AM EDT 06/28/2024 9:53 AM EDT Narrative CLIN[facility]YNC - 06/28/2024 9:59 AM EDT us Soledad GUILLERMO CLINISYNC Final Result CLINISYNC TB * (ABNORMAL) [facility] CMP (CMP) (FOR REMOTE [facility] USE) (06/28/2024 9:51 AM EDT) SODIUM 149(H) 136 - 145 mmol/L TBH POTASSIUM 3.8 3.5 - 5.1 mmol/L TBH CHLORIDE 114(H) 98 - 107 mmol/L TBH CARBON DIOXIDE 25.2 21.0 - 32.0 mmol/L TBH ANION GAP 13.6 TBH GLUCOSE 187(H) 74 - 106 mg/dL TBH BLOOD UREA NITROGEN 32.0(H) 7.0 - 18.0 mg/dL TBH CREATININE 1.25 0.70 - 1.30 mg/dL TBH TBH EGFR-AF COLOMBIAN >60 >=60 mL/min/1. 73m 2 TBH TBH EGFR-NON AF COLOMBIAN 55(L) >=60 mL/min/1. 73m 2 TBH BUN CREATININE RATIO 25.6 TBH CALCIUM 8.9 8.5 - 10.1 mg/dL TBH BILIRUBIN TOTAL 1.1(H) 0.2 - 1.0 mg/dL TBH ASPARTATE AMINO TRANSFERASE 27 15 - 37 U/L TBH ALANINE AMINOTRANSFERASE 34 16 - 63 U/L TBH ALKALINE PHOSPHATASE 144(H) 46 - 116 U/L TBH TOTAL PROTEIN 6.8 6.4 - 8.2 g/dL TBH ALBUMIN LEVEL 3.0(L) 3.4 - 5.0 g/dL TBH GLOBULIN 3.8 g/dL TBH ALBUMIN GLOBULIN RATIO 0.8 TBH 06/28/2024 9:51 AM EDT 06/28/2024 9:51 AM EDT Narrative CLINISYNC - 06/28/2024 11:15 AM EDT us Soledad GUILLERMO [facility] Final Result [facility] * (ABNORMAL) ALL CBC WITH AUTO DIFF (06/28/2024 9:51 AM EDT) Only the most recent of2 resultswithin the time period is included. TBH WBC 7.4 4.0 - 11.0 10 3/uL TBH TBH RBC 4.04(L) 4.70 - 6.10 10 6/uL TBH TBH HGB 12.4(L) 14.0 - 18.0 g/dL TBH TBH HCT 37.8(L) 42.0 - 54.0 % TBH TBH MCV 93.6 80.0 - 94.0 fL TBH TBH MCH 30.7 25.9 - 34.0 pg TBH TBH MCHC 32.8 29.9 - 35.2 g/dL TBH TBH RDW 14.6 11.0 - 15.0 % TBH TBH PLT 318 150 - 450 10 3/uL TBH TBH MPV 10.6 9.5 - 13.5 fL TBH NEUTROPHILS PERCENT AUTO 68.7 43.0 - 75.0 % TBH LYMPHOCYTES PERCENT AUTO 17.6(L) 20.5 - 60.0 % TBH MONOCYTES PERCENT AUTO 10.6 1.7 - 12.0 % TBH TBH EO % 2.4 0.9 - 7.0 % TBH BASOPHILS PERCENT AUTO 0.4 0.2 - 2.0 % TBH IMMATURE GRANULOCYTES PCT AUTO 0.3 0.0 - 0.5 % TBH NEUTROPHILS ABSOLUTE AUTO 5.1 1.4 - 6.5 10 3/uL TBH LYMPHOCYTES ABSOLUTE AUTO 1.3 1.2 - 3.8 10 3/uL TBH MONOCYTES ABSOLUTE AUTO 0.8 0.3 - 0.8 10 3/uL TBH TBH EO # 0.2 0.0 - 0.7 10 3/uL TBH BASOPHILS ABSOLUTE AUTO 0.0 0.0 - 0.1 10 3/uL TBH IMMATURE GRANULOCYTES ABS AUTO 0.02 0.00 - 0.03 10 3/uL TBH 06/28/2024 9:51 AM EDT 06/28/2024 9:51 AM EDT Narrative CLINISYNC - 06/28/2024 10:35 AM EDT us Soledad GUILLERMO CLINISYNC Final Result CLINISYTN TB * BLOOD CULTURE 2 (06/27/2024 1:10 PM EDT) BLOOD CULTURE 2 Blood Culture 2 NG5D NO GROWTH AT 5 DAYS.^NO GROWTH AT 5 DAYS. TB 06/27/2024 1:10 PM EDT 06/27/2024 1:22 PM EDT Narrative CLINISYNC - 07/02/2024 2:40 PM EDT us Generic External Data Provider LAB BLOOD ORDERAB LES Final Result [facility]IN[facility]NC TB * BLOOD CULTURE 1 (06/27/2024 1:03 PM EDT) BLOOD CULTURE 1 Blood Culture 1 NG5D NO GROWTH AT 5 DAYS.^NO GROWTH AT 5 DAYS. TB 06/27/2024 1:03 PM EDT 06/27/2024 1:21 PM EDT Narrative CLINISYNC - 07/02/2024 2:40 PM EDT Generic External Data Provider LAB BLOOD ORDERAB LES Final Result CLINISYNC TB * ALL AMMONIA (06/26/2024 1:17 AM EDT) AMMONIA 16 11 - 32 umol/L TB 06/26/2024 1:17 AM EDT 06/26/2024 1:43 AM EDT Narrative CLINISYNC - 06/26/2024 1:57 AM EDT Zach Frias MD CLINISYNC Final Result Performing Organization Address [facility] Co de Phone Number CLINISYNC TB * (ABNORMAL) ALL BASIC METABOLIC PANEL (06/04/2024 11:26 AM EDT) SODIUM 143 136 - 145 mmol/L TBH POTASSIUM 4.2 3.5 - 5.1 mmol/L TBH CHLORIDE 105 98 - 107 mmol/L TBH CARBON DIOXIDE 27.0 21.0 - 32.0 mmol/L TBH ANION GAP 15.2 TBH GLUCOSE 110(H) 74 - 106 mg/dL TBH BLOOD UREA NITROGEN 23.0(H) 7.0 - 18.0 mg/dL TBH CREATININE 1.07 0.70 - 1.30 mg/dL TBH TBH EGFR-AF COLOMBIAN >60 >=60 mL/min/1.7 3m 2 TBH TBH EGFR-NON AF COLOMBIAN >60 >=60 mL/min/1.7 3m 2 TBH BUN CREATININE RATIO 21.5 TBH CALCIUM 9.3 8.5 - 10.1 mg/dL TBH 06/04/2024 11:2 6 AM EDT 06/04/2024 12:01 PM EDT Narrative CLINISYNC - 06/04/2024 12:49 PM EDT [facility] DROP OFF Zach Frias MD CLINISYNC Final Result Performing Organization Address [facility] de Phone Number CLINISYNC TBH * (ABNORMAL) TBH URINE MICROSCOPIC ONLY (06/04/2024 11:10 AM EDT) TBH WBC 0-2(A) NONE SEEN #/HPF TBH TBH RBC 0-2 0 - 2 #/HPF TBH BACTERIA URINE NONE SEEN NONE SEEN #/HPF TBH MUCUS URINE TRACE(A) NONE SEEN TBH SQUAMOUS EPITHELIAL CELL URINE RARE NONE/RARE #/LPF TBH CRYSTALS SEEN? None Seen None Seen #/HPF TBH CAST SEEN? SEEN(A) NONE SEEN #/LPF TBH HYALINE CASTS URINE FEW TBH 06/04/2024 11:1 0 AM EDT 06/04/2024 12:03 PM EDT Narrative CLINISYNC - 06/04/2024 12:21 PM EDT [facility] DROP OFF Zach LEVIISYROSSANA Final Result Performing Organization Address [facility] de Phone Number CLINISYNC TBH * (ABNORMAL) TBH UA (CLEAN/CATCH) MICROSCOPIC IF INDICATE (06/04/2024 11:10 AM EDT) COLOR URINE LT. YELLOW YELLOW TBH CLARITY URINE CLEAR CLEAR TBH SPECIFIC GRAVITY URINE 1.020 1.005 - 1.025 TBH PH URINE 6.0 5.0 - 9.0 TBH PROTEIN URINE 100(A) NEG/TRACE mg/dL TBH GLUCOSE URINE UA NEGATIVE NEGATIVE mg/dL TBH BILIRUBIN URINE NEGATIVE NEGATIVE TBH KETONES URINE NEGATIVE NEGATIVE mg/dL TBH BLOOD URINE NEGATIVE NEGATIVE TBH NITRITE URINE NEGATIVE NEGATIVE TBH UROBILINOGEN URINE 1.0 0.2 - 1.0 EU/dL TBH LEUKOCYTE ESTERASE URINE NEGATIVE NEGATIVE TBH URINE MICROSCOPIC INDICATED YES TBH 06/04/2024 11:1 0 AM EDT 06/04/2024 12:03 PM EDT Narrative CLINISYNC - 06/04/2024 12:21 PM EDT [facility] DROP OFF Zach Frias MD CLINISYNC Final Result CLINISYNC TBH * Cryotherapy, skin lesion (05/17/2024 12:16 PM EST) Genevieve Baeza MD DERM PROCEDURE ORDERABLES Fin al Result * Cryotherapy, skin lesion (05/17/2024 12:12 PM EST) Genevieve Baeza MD DERM PROCEDURE ORDERABLES Fin al Result * (ABNORMAL) Hemoglobin a1c with eag (02/27/2024 10:39 AM EST) HEMOGLOBIN A1C 6.2(H) 4.3 - 5.6 % 02/28/2024 7:55 AM [facility] Comment: Increased risk for diabetes: 5.7 - 6.4 diabetes: >6.4 glycemic control for adults with diabetes: <7.0 ESTIMATED AVERAGE GLUCOSE 131 mg/dL 02/28/2024 7:55 AM [facility] Other 02/27/2024 10:3 9 AM EST 02/27/2024 10:39 AM EST Phani Wynne DO LAB BLOOD ORDERABLES Final R esult Performing Organization Address City/[facility] Co de Phone Number [facility] [address] [place] [address], [facility] [address] [place] [address] * (ABNORMAL) Microalbumin / creatinine urine ratio (02/27/2024 10:39 AM EST) MICROALBUMIN, URINE 3.2(H) 0.0 - 1.8 mg/dL 02/27/2024 2:03 PM [facility] CREATININE, URINE (RANDOM) 109.00 mg/dL 02/27/2024 2:03 PM [facility] Comment:No reference range e stablished MICROALBUMIN/CRE ATININE RATIO 29.4 0.0 - 30.0 mg/g 02/27/2024 2:03 PM [facility] Comment: 30-300 mg/g indicates an increased risk for diabetic nephropathy. Greater than 300 mg/g is consistent with clinical nephropathy. (Am. J. Kidney Disease 1995, 25:107) Other 02/27/2024 10:3 9 AM EST 02/27/2024 10:39 AM EST Phani Wynne DO LAB URINE ORDERABLES Final R esult [facility] [address] [place] [address], [facility] [address] [place] [address] * Color Fundus Photography - OU - Both Eyes (01/08/2021 12:00 PM EDT) Anatomical Region Laterality Modality Head Fundus Photograp hy 01/08/2021 12:0 0 PM EDT Narrative 01/08/2021 12:00 PM EDT PERFORMED AT [facility] LOCATION:[id number] No Retinopathy Procedure Note CONVERSION, GENERIC - 07/28/2022 PERFORMED AT [facility] LOCATION:[id number] No Retinopathy Phani Wynne DO OPHTH PHOTOGRAPHY Final Resu lt from Last 3 Months or Most Recently Relevant to Health Maintenance Insurance MEDICARE [facility] Care Teams Email Operations Manager Relationship Specialty Start Date End Date Phani Wynne DO [address] [facility] [address] [place] [address] PCP - ACO Reach 08/05/22 Phani Wynne DO [address] [facility] [address] [place] [address] PCP - General Internal Medicine 08/26/22
--- OUTSIDE RECORDS SUMMARY | 2024-08-02 21:07 | XMS_ITS | Patient Health Record ---
Author Organization [facility] Address [address] [place] [address] Care Team Providers Care Bond Analyst Name Role Phone Frandy, Shamir Unavailable [phone] Jasmyne Jonas Unavailable [phone] Reason For Referral No Information Encounters Encounter Location Date Provider Diagnosis [facility] Office [address] [facility] [place] [place] [address] [place] [address] 07/13/2024 Jasmyne Jonas Compression fracture of L3 [...] superior endplate compression fracture Plan Of Treatment Next Appt Details Provider Name:Shamir Paulo Vela, 08/17/2024 10:40:00 AM, [address] [facility] [address] [facility], [place], [address], Insurance Providers Payer Name Payer Address Payer Phone Subscriber Number Group Number Insured Name Patient Relationship to Insured Coverage Start Date Coverage End [place] [address] [place] [address] [id number] SIMONSDES Self - patient is the insured [address] [place] [address] [id number] DES SIMONS Self - patient is the insured 5
--- OUTSIDE RECORDS SUMMARY | 2024-08-02 21:07 | XMS_ITS | Patient Health Record ---
Author Organization [facility] Address [address] [place] [address] Care Team Providers Care Tray Worker Name Role Phone Phani Wynne Primary Care Provider Unavailabl e Reason For Referral No Information Immunizations Vaccine Route Administration Date Status Comme nts Pneumonia ( Given in the Pas t) Unspecified Unknown 09/13/2022 Administered Plan Of Treatment No Information Insurance Providers Payer Name Payer Address Payer Phone Subscriber Number Group Number Insured Name Patient Relationship to Insured Coverage Start Date Coverage End Date [place] [address] [place] [address] [id number] Alex Jacob Self - patient is the insured [facility] [address] [place] [id number] Alex Jacob Self - patient is the insured
--- OUTSIDE RECORDS SUMMARY | 2024-08-02 21:07 | XMS_ITS | Encounter Summary ---
Author Organization [facility] Address [address] [place] [address] Care Team Providers Care Subeditor Name Role Phone Phani Wynne DO Unavailable [phone] Phani Wynne DO Primary Care Provider + [phone] Sri Aguiar RN Unavailable Unavailable Encounter Details Date Type Department Care Team (Late st Contact Info) Description 05/30/2024 Abstract [facility] [address] [place] [address] Unallocated, [facility] Provider, [address] [place], [place] [id number] Social History Tobacco Use Types Packs/Day Years [...] DERM [address] [place] [address] Genevieve Baeza MD [address] [place] [address] documented as of this encounter Visit Diagnoses Not on filedocumented in this encounter Additional Health Concerns Assessment Noted Time PHQ-9 Depression Total Score: 19 024 10:00 AM EDT documented as of this encounter Care Teams Subeditor Relationship Specialty Start Date End Date Phani Wynne DO [address] [facility] [address] [facility] [address] [place] [address] PCP - ACO Reach 08/05/22 Phani Wynne DO [address] [facility] [address] [place] [address] PCP - General Internal Medicine 08/26/22 Sri Aguiar, RN Registered Nurse Family Medicine 05/22/24 06/13/24 documented as of this encounter
--- OUTSIDE RECORDS SUMMARY | 2024-08-02 21:07 | XMS_ITS | Encounter Summary ---
Author Organization [facility] Address [address] [place] [address] Care Team Providers Care [employer] Name Role Phone Phani Wynne DO Unavailable [phone] Phani Wynne DO Primary Care Provider [phone] Massiel Villalba CASINO SURVEILLANCE OFFICER Unavailable [phone] Sri Aguiar RN Unavailable Unavailable Reason for Visit * Reason Comments Med Refill Encounter Details Date Type Department Care Team (Late st Contact Info) Description 08/26/2022 Refill [facility] [address] [facility] [address] [place] [id number] Phani Wynne DO [address] [facility] [address] [place] [address] Essential hypertension (CMS/HCC) Social History Tobacco Use Types Packs/Day Years [...] on file documented as of this encounter Functional Status * Over the past 2 weeks, how often have you been bothered by any of the following problems? Question Answer Date of Assessment Author Little interest or pleasure in doing things Not at all 08/26/2022 10:50 AM EDT Silvana Robles LPN Feeling down, depressed, or hopeless Not at all 08/26/2022 10:50 AM EDT Silvana Robles LPN Patient Health Questionnaire-2 Score 0 08/26/2022 10:50 AM EDT Suma Robles LPN documented as of this encounter Miscellaneous Notes * Telephone Encounter - Shade Lerner LPN - 08/26/2022 3:05 PM EDT Already sent documented in this encounter Plan of Treatment Upcoming Encounters Date Type Department Care Team (Late st Contact Info) Description 05/16/2025 11:35 AM EST Office Visit [facility] [address] [place] [phone] Genevieve Baeza MD [address] [place] [address] documented as of this encounter Visit Diagnoses Diagnosis Essential hypertension (CMS/HCC) Unspecified essential hypertension documented in this encounter Care Teams [employer] Relationship Specialty Start Date End Date Phani Wynne DO [address] [place] [address] PCP - ACO Reach 08/05/22 Phani Wynne DO [address] [place] [address] PCP - General Internal Medicine 08/26/22 Massiel Villalba LSW [employer] Family Medicine 05/22/24 05/22/24 Sri Aguiar, RN Registered Nurse Family Medicine 05/22/24 06/13/24 documented as of this encounter
[2024-08-02] MEDS: LIDOCAINE HCL 1% 100 MG/10 ML MDV INJ (21:53)
== END 2024-08-02 23:19 | disposition home or self-care (01) ==
PROVIDERS: Emergency Provider Emergency Medicine; PCP Family Medicine
DX: S01.311A Laceration without foreign body of right ear, initial encounter (principal); S01.01XA Laceration without foreign body of scalp, initial encounter; S32.018A Other fracture of first lumbar vertebra, initial encounter for closed fracture; W06.XXXA Fall from bed, initial encounter; F03.90 Unspecified dementia, unspecified severity, without behavioral disturbance, psychotic disturbance, mood disturbance, and anxiety; Z91.81 History of falling; M47.816 Spondylosis without myelopathy or radiculopathy, lumbar region
CPT/HCPCS: 12002; 12013; 70450; 71045; 72125; 72128; 72131; 72170; 99285